=== PATIENT | female | born 2000 | race Caucasian/White ===

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

== ENCOUNTER → 2020-02-14 09:13 | Outpatient (CLI) | payer OTHER, SELFPAY ==
--- NOTE | 2020-02-14 09:21 | XR_ITS ---
PROCEDURE: XR WRIST RT MIN 3V CLINICAL INDICATION: INJURY TO R WRIST/INTIAL ENCOUNTER Pain COMPARISON: WRL2 WRIST-2 VIEWS-LT from 09/06/2007 WRR3 WRIST-3 VIEWS-RT from 09/06/2007 WRR2 WRIST-2 VIEWS-RT from 05/16/2013 WRL3 WRIST-3 VIEWS-LT from 05/16/2013 FINDINGS: No fracture, dislocation, lytic change, or blastic change evident. No significant degenerative change IMPRESSION: No acute findings. Dictated by: Ervin Zhang MD 02/14/2020 14:22 Electronically signed by Ervin Zhang MD in [facility] 02/14/2020 14:22
== END ==
PROVIDERS: PCP Nurse Practitioner Family; Visit Provider Nurse Practitioner Family
DX: S69.91XA Unspecified injury of right wrist, hand and finger(s), initial encounter (principal)
CPT/HCPCS: 73110

== ENCOUNTER 2022-04-16 20:08 | Emergency (ER) | payer OTHER, SELFPAY ==
[2022-04-16 20:09] VITALS: BP 136/94; PULSE 119; RESP 18; TEMP 36.9; O2SAT 99; BMI 44.2
[2022-04-16 20:45] VITALS: BP 136/94; PULSE 116; O2SAT 100
--- NOTE | 2022-04-16 20:55 | CT_ITS ---
PROCEDURE INFORMATION: Exam: CT Abdomen And Pelvis With Contrast Exam date and time: 04/16/2022 9:27 PM Age: 21 years old Clinical indication: Nausea and vomiting; Abdominal pain; Localized; Right upper quadrant (ruq); Additional info: R upper, lower abd pain, n/v/d for 2 days TECHNIQUE: Imaging protocol: Computed tomography of the abdomen and pelvis with contrast. Radiation optimization: All CT scans at this facility use at least one of these dose optimization techniques: automated exposure control; mA and/or kV adjustment per patient size (includes targeted exams where dose is matched to clinical indication); or iterative reconstruction. Contrast material: ISOVUE; Contrast volume: 75 ml; Contrast route: IV; COMPARISON: No relevant prior studies available. FINDINGS: Liver: Probable hepatic steatosis. Gallbladder and bile ducts: Normal. No calcified stones. No ductal dilation. Pancreas: Normal. No ductal dilation. Spleen: Normal. No splenomegaly. Adrenal glands: Normal. No mass. Kidneys and ureters: Normal. No hydronephrosis. Stomach and bowel: Unremarkable. No obstruction. No mucosal thickening. Appendix: Unremarkable appendix. Intraperitoneal space: Unremarkable. No free air. No significant fluid collection. Vasculature: Unremarkable. No abdominal aortic aneurysm. Lymph nodes: Unremarkable. No enlarged lymph nodes. Urinary bladder: Unremarkable as visualized. Reproductive: Unremarkable as visualized. Bones/joints: Unremarkable. No acute fracture. Soft tissues: Tiny fat containing umbilical hernia. IMPRESSION: No acute findings.
--- NOTE | 2022-04-16 21:01 | HMH.EDABDPAI ---
Discharge Plan Disposition Patient Disposition: Home, Self-Care Chief Complaint: Abdominal Pain Prescriptions Prescriptions: No Action No Known Home Medications Referrals Follow up/Referrals: Eligio Abernathy MD [Primary Care Provider] - See instructions Clinical Impressions Clinical Impression: Abdominal pain Instructions Patient Instructions: DI for Acute Abdominal Pain Discharge ED Provider: Obed Decker Abdominal Pain HPI General Chief Complaint: Abdominal Pain Stated Complaint: adm pain Time Seen by Provider: 04/16/22 21:01 Mode of Arrival: Family Vehicle Source of Information: Patient, Spouse and Medical Record Limitations: No Limitations Description of Symptoms (Recalled from ER Triage Doc. by RN): Pt c/o R upper and lower abd pain that radiates to R flank. She also c/o nausea and vomiting and soft stool. Denies fever, chills, or cough. Report the pain has been constant for 2 days but has worsened tonight. 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 No prior abd surgeries. History of Present Illness HPI narrative: rt upper abd pain with n/v over the last 2 days - worse today w/o fever/rash or trauma MD complaint: abdominal pain Onset (ago): day(s) Consistency: intermittent Location: RUQ Severity: moderate Quality: sharp Associated symptoms: denies other symptoms Related Data Home Medications Medication Instructions Recorded Confirmed No Known Home Medications 09/13/17 02/11/19 Allergies Allergy/AdvReac Type Severity Reaction Status Date / Time No Known Allergies Allergy Verified 09/13/17 14:55 [facility] Surgical History (Updated 04/16/22 @ 22:19 by Jennifer Feliz RN) History of atrioventricular dangelo ablation History of tonsillectomy and adenoidectomy [place] teeth extracted Social History Smoking Status: Current every day smoker alcohol intake: never 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 Travel in the last 8 weeks: None ROS Obtained: Yes All systems reviewed & no additional complaints except as documented Gastrointestinal Gastrointestingal: Reports as per HPI, abdominal pain and nausea Physical Exam General General appearance: alert and in no apparent distress Head Head exam: normocephalic Eye Eye exam: Present PERRL and EOMI ENT ENT exam: Present mucous membranes moist Neck Neck exam: Present trachea midline Respiratory Respiratory exam: Present normal lung sounds bilaterally; Absent respiratory distress Cardiovascular Cardiovascular exam: Present regular rate Abdominal Exam Abdominal exam: Present soft, tenderness and Heard's sign; Absent guarding or rebound Abdominal tenderness: Present RUQ and moderate Extremities Exam Extremities exam: Present full ROM Back Exam Back exam: Absent CVA tenderness (R) Neurological Exam Neurological exam: Present alert, oriented X3 and CN II-XII intact Psychiatric Psychiatric exam: Present normal affect Skin Skin exam: Absent rash Medical Decision Making Medical Records Medical records reviewed: Yes I reviewed the patient's medical records. Dylon Inquiry Pt receiving controlled substance: No Vital Signs: 04/16/22 20:09 Temperature 98.4 F Temperature Source Oral Pulse Rate [Right] 119 H Respiratory Rate 18 Blood Pressure [Right Arm] 136/94 H Blood Pressure Mean [Right Arm] 108 Blood Pressure Source [Right Arm] Automatic Cuff 02 Sat by Pulse Oximetry 99 Oxygen Delivery Method Room Air Lab Data Lab results reviewed: Yes I reviewed the patient's lab results. Lab Results 04/16/22 20:58: Urine Color Yellow, Urine Appearance Clear, Urine pH 7.5, Ur Specific [place] 1.015, Urine Protein Negative, Urine Glucose (UA) Negative, Urine Ketones Negative, Urine Blood Negative, Urine Nitrate Negative, Urine Bilirubin Negative, Urine Urobilinogen 0.2, Ur Leukocyte Esterase Negative, Urine RBC None, Urine WBC None, Ur Squamous Epith Cells Occasional, Urine Bacteria None 04/16/22 20:58: Urine HCG, Qual Nega
[2022-04-16 21:06] LABS: Microscopic, Urine URINE MICROSCOPIC (MICROSCOPIC)
[2022-04-16 21:14] LABS: Urine Pregnancy, HCG Qual. Negative (Negative)
[2022-04-16 21:17] LABS: Appearance,Urine CLEAR (Clear); Bilirubin,Urine Negative (Negative); Blood, Urine Negative (Negative); Color,Urine YELLOW (Yellow); Glucose,Urine (UA) Negative (Negative); Ketones,Urine Negative (Negative); Leukocyte Esterase,Urine Negative (Negative); Nitrate,Urine Negative (Negative); PH,Urine 7.5 (5.0-8.5); Protein,Urine Negative (Negative); Specific Gravity, Urine 1.015 (1.005-1.030); Urobilinogen,Urine 0.2 EU/dl (0.2)
[2022-04-16 21:28] LABS: Basophils # 0.1 K/mm3 (0-0.2); Basophils % 1.1 % (0.1-2.0); Eosinophils # 0.3 K/mm3 (0.0-0.4); Eosinophils % 2.7 % (0.1-12.0); Hematocrit 39.3 % (37.0-47.0); Hemoglobin 12.1 g/dL (12.2-16.2); Lymphocytes # 2.6 K/mm3 (0.7-4.5); Lymphocytes % 20.8 % (10-50); Mean Corpuscular HGB Conc 30.7 g/dL (31.8-35.4); Mean Corpuscular Volume 81.5 fl (81-99); Mean Platelet Volume 9.1 fl (7.4-10.4); Monocytes # 0.5 K/mm3 (0.1-1.0); Monocytes % 3.7 % (1.7-9.3); Neutrophils % 71.7 % (37.0-80.0); Platelet Count 376 K/mm3 (142-424); Red Blood Count 4.83 M/mm3 (4.20-5.40); Red Cell Distribution Width 15.5 % (11.5-17.5); White Blood Count 12.6 K/mm3 (4.8-10.8)
[2022-04-16 21:39] LABS: Alanine Aminotransferase 37 U/L (12-78); Albumin Level 4.2 g/dl (3.5-5.0); Albumin/Globulin Ratio 1.2 (1.1-1.8); Alkaline Phosphatase 88 U/L (38-126); Amylase 55 U/L (30-110); Aspartate Amino Transferase 30 U/L (14-36); Bilirubin,Total 0.3 mg/dl (0.2-1.3); Blood Urea Nitrogen 15 mg/dl (7-17); Calcium 8.6 mg/dl (8.4-10.2); Carbon Dioxide 27 mmol/L (22.0-30.0); Chloride 106 mmol/L (98-107); Creatinine Clearance Estimated 67 mL/min (50-200); Estimated Glomerular Filt Rate 57 ml/min (>60); GFR (African American) 69 ML/MIN (>60); Globulin 3.4 g/dL (1.3-3.2); Glucose 82 mg/dl (74-100); Lipase 37 U/L (23-300); Sodium 141 mmol/L (136-145); Total Protein,Serum 7.6 g/dl (6.3-8.2)
[2022-04-16 21:45] LABS: C-Reactive Protein 20.7 mg/L (0-4)
[2022-04-16 21:51] LABS: Squamous Epithelial Cell,Urine Occasional #/hpf (0-5)
[2022-04-16 21:57] LABS: Erythrocyte Sedimentation Rate 21 mm/hr (0-20)
[2022-04-16 21:59] LABS: Procalcitonin 0.085 ng/mL (0.0-2.0)
[2022-04-16 22:01] VITALS: BP 112/55; PULSE 94; O2SAT 99
[2022-04-16 22:30] VITALS: BP 138/72; PULSE 70; RESP 16; TEMP 36.6; O2SAT 99
== END 2022-04-16 22:32 | disposition home or self-care (01) ==
PROVIDERS: Emergency Provider Emergency Medicine; PCP Family Medicine
DX: R10.9 Unspecified abdominal pain (principal); R11.2 Nausea with vomiting, unspecified
CPT/HCPCS: 74177; 80053; 81001; 81025; 82150; 83690; 84145; 85025; 85651; 86140; 99284; Q9967

== ENCOUNTER → 2023-05-07 08:31 | Outpatient (CLI) | payer OTHER, SELFPAY ==
[2023-05-07 09:54] LABS: HCG,Quantitative 1020 mIU/ml (0-5.42)
== END ==
PROVIDERS: PCP Family Medicine; Visit Provider Nurse Practitioner Obstetrics & Gynecology
DX: N92.6 Irregular menstruation, unspecified (principal)
CPT/HCPCS: 36415; 84144; 84702

== ENCOUNTER 2023-05-16 19:36 | Emergency (ER) | payer OTHER, SELFPAY ==
[2023-05-16 19:37] VITALS: BP 144/73; PULSE 102; RESP 20; TEMP 36.8; O2SAT 99; BMI 45.9
--- NOTE | 2023-05-16 19:50 | US_ITS ---
PROCEDURE INFORMATION: Exam: US , Transvaginal and US Duplex Artery and Vein, Ovaries, Complete Exam date and time: 05/16/2023 8:06 PM Age: 22 years old Clinical indication: complicated by abdominal or pelvic pain; Lower; First trimester (<14 weeks 0 days); Gestational age or lmp: 5w6d; ; Additional info: + preg, left adnexal pain, location of preg? LABS AND CLINICAL REPORTS: Last menstrual period start date: 04/06/2023 Gestational age (Established): 5 w 5 d Estimated due date (Established): 01/11/2024 TECHNIQUE: Imaging protocol: Real-time transvaginal obstetrical ultrasound of the maternal pelvis and a first trimester with image documentation. Transvaginal imaging was used for better evaluation of the fetus, adnexa, and/or cervix. Real-time duplex ultrasound scan of the arterial and venous flow of the ovaries with B-mode, color Doppler flow and spectral waveform analysis, Complete Duplex. Duplex exam was performed to evaluate for torsion and other vascular conditions. Total images: 281 COMPARISON: CT ABDOMEN PELVIS W CON 04/16/2022 9:27 PM FINDINGS: GESTATION: Gestation: Single live intrauterine gestation. Yolk sac measures 4.1 mm. heart rate: 103 bpm Placenta: Unremarkable. No subchorionic bleed. Amniotic fluid: Amniotic fluid is normal for gestational age. BIOMETRY: Gestational age (AUA): 5 w 6 d Estimated due date (AUA): 01/10/2024 [place] length (CRL): 2.17 mm. EGA (CRL) is 5 w 5 d MATERNAL: Uterus: Anteverted nonenlarged uterus. Homogeneous myometrium. No uterine mass. Right ovary/adnexa: Right ovary measures 3.24 cm x 3.03 cm x 1.75 cm. Right ovarian volume is 9 mL. 1.9 cm hemorrhagic right ovarian corpus luteal cyst. Left ovary/adnexa: Left ovary measures 2.56 cm x 1.49 cm x 1.62 cm. Left ovarian volume is 3.24 mL. Intraperitoneal space: No free pelvic fluid. No adnexal mass. Vasculature: Normal color and spectral Doppler flow to both ovaries. IMPRESSION: 1. Single live intrauterine gestation of 5 weeks 6 days with heart rate 103 bpm. 2. No perigestational hemorrhage. 3. Normal bilateral ovaries. No torsion. 4. 1.9 cm hemorrhagic right ovarian corpus luteal cyst.
--- NOTE | 2023-05-16 19:53 | HMH.EDGENADL ---
Discharge Plan Disposition Patient Disposition: Home, Self-Care Prescriptions Prescriptions: New cephalexin 500 mg capsule 500 mg PO QID 5 Days Qty: 20 0RF No Action progesterone micronized [Prometrium] 100 mg capsule 100 mg PO DAILY 30 Days Qty: 30 3RF Rx Instructions: off 7 days; repeat cycle Referrals Follow up/Referrals: Eligio Abernathy MD [Primary Care Provider] - See instructions Activity Restrictions/Add. Instructions Additional Instructions/Restrictions: Follow-up with your primary care doctor or your [employer] doctor as previously instructed return to the emergency department with any worsening symptoms. Clinical Impressions Clinical Impression: Asymptomatic bacteriuria during , First trimester , Abdominal pain during Discharge ED Provider: Kvng Soto General Adult HPI General Chief complaint: PAIN Stated complaint: abd and back pain 6 wks Time Seen by Provider: 05/16/23 19:41 History of Present Illness HPI narrative: Patient is a 22-year-old female who is a G1, P0 at 6 weeks gestational age by dates. She presents today with lower abdominal discomfort as well as lower back discomfort. She denies any vaginal bleeding, loss of fluid she has had some mild vaginal discharge after starting progesterone which was initiated by Dr. Cordero. She had no vaginal discharge prior to being . She denies any dysuria frequency urgency. She has no significant abdominal pain to the rest of her abdomen. She is a smoker has no history of ectopic pelvic inflammatory disease gonorrhea or chlamydia. Related Data Previous Rx's Medication Instructions Recorded progesterone micronized 100 mg 100 mg PO DAILY 30 days #30 caps 05/11/23 capsule (Prometrium) cephalexin 500 mg capsule 500 mg PO QID 5 days #20 caps 05/16/23 Allergies Allergy/AdvReac Type Severity Reaction Status Date / Time fentanyl Allergy Verified 05/16/23 20:13 [facility] Disclaimer: The information contained in this section may have been updated after the patient was seen, as this information can be updated by other users. 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 Travel in the last 8 weeks: None ROS Obtained: Yes All systems reviewed & no additional complaints except as documented Physical Exam General General appearance: alert Respiratory Respiratory exam: Present normal lung sounds bilaterally; Absent respiratory distress Cardiovascular Cardiovascular exam: Present regular rate; Absent tachycardia Abdominal Exam Abdominal exam: Present soft; Absent distention or tenderness Neurological Exam Neurological exam: Present alert and oriented X3 Medical Decision Making Dylon Inquiry Pt receiving controlled substance: No Vital Signs: 05/16/23 19:37 Temperature 98.3 F Temperature Source Oral Pulse Rate [Right Radial] 102 H Respiratory Rate 20 Blood Pressure [Right Arm] 144/73 H Blood Pressure Mean [Right Arm] 96 Blood Pressure Source [Right Arm] Automatic Cuff Blood Pressure Position [Right Arm] Supine 02 Sat by Pulse Oximetry 99 Oxygen Delivery Method Room Air Lab Data Lab results reviewed: Yes I reviewed the patient's lab results. Lab Results 05/16/23 19:42: Urine Color Yellow, Urine Appearance Clear, Urine pH 7.0, Ur Specific [place] 1.015, Urine Protein Trace, Urine Glucose (UA) Negative, Urine Ketones Negative, Urine Blood Negative, Urine Nitrate Negative, Urine Bilirubin Negative, Urine Urobilinogen 0.2, Ur Leukocyte Esterase Negative, Urine RBC None, Urine WBC Occasional, Ur Squamous Epith Cells 5-10, Urine Bacteria Trace 05/16/23 20:00: WBC 12.3 H, RBC 4.63, Hgb 11.4 L, Hct
[2023-05-16 20:14] LABS: Basophils % 0.3 % (0.1-2.0); Eosinophils # 0.3 K/mm3 (0.0-0.4); Eosinophils % 2.2 % (0.1-12.0); Hematocrit 36.3 % (37.0-47.0); Hemoglobin 11.4 g/dL (12.2-16.2); Lymphocytes # 2.5 K/mm3 (0.7-4.5); Mean Corpuscular HGB Conc 31.4 g/dL (31.8-35.4); Mean Corpuscular Hemoglobin 24.6 pg (27.0-31.2); Mean Corpuscular Volume 78.4 fl (81-99); Mean Platelet Volume 9.1 fl (7.4-10.4); Monocytes # 0.4 K/mm3 (0.1-1.0); Monocytes % 3.1 % (1.7-9.3); Neutrophils # 9.1 K/mm3 (1.8-7.8); Neutrophils % 74.4 % (37.0-80.0); Platelet Count 327 K/mm3 (142-424); Red Blood Count 4.63 M/mm3 (4.20-5.40); Red Cell Distribution Width 15.7 % (11.5-17.5); White Blood Count 12.3 K/mm3 (4.8-10.8)
[2023-05-16 20:17] LABS: Chloride 106 mmol/L (98-107)
[2023-05-16 20:18] LABS: Sodium 137 mmol/L (136-145)
[2023-05-16 20:20] LABS: Alanine Aminotransferase 25 U/L (12-78); Aspartate Amino Transferase 21 U/L (14-36); Blood Urea Nitrogen 10 mg/dl (7-17); Creatinine Clearance Estimated 72 mL/min (50-200); Estimated Glomerular Filt Rate 62 ml/min (>60); GFR (African American) 75 ML/MIN (>60)
[2023-05-16 20:21] LABS: Albumin Level 3.7 g/dl (3.5-5.0); Albumin/Globulin Ratio 1.2 (1.1-1.8); Alkaline Phosphatase 55 U/L (38-126); Bilirubin,Total 0.4 mg/dl (0.2-1.3); Calcium 8.3 mg/dl (8.4-10.2); Carbon Dioxide 22 mmol/L (22.0-30.0); Globulin 3.2 g/dL (1.3-3.2); Glucose 110 mg/dl (74-100); Total Protein,Serum 6.9 g/dl (6.3-8.2)
[2023-05-16 20:39] LABS: Microscopic, Urine URINE MICROSCOPIC (MICROSCOPIC)
[2023-05-16 20:41] LABS: Appearance,Urine CLEAR (Clear); Bilirubin,Urine Negative (Negative); Blood, Urine Negative (Negative); Color,Urine YELLOW (Yellow); Glucose,Urine (UA) Negative (Negative); Ketones,Urine Negative (Negative); Leukocyte Esterase,Urine Negative (Negative); Nitrate,Urine Negative (Negative); Protein,Urine TRACE (Negative); Specific Gravity, Urine 1.015 (1.005-1.030); Urobilinogen,Urine 0.2 EU/dl (0.2)
[2023-05-16 20:43] LABS: Bacteria,Urine Trace /lpf; WBC,Urine Occasional #/hpf (0-3)
[2023-05-16 20:51] VITALS: BP 142/72; PULSE 98; RESP 20; TEMP 36.8; O2SAT 99
== END 2023-05-16 20:52 | disposition home or self-care (01) ==
PROVIDERS: Emergency Provider Student in an Organized Health Care Education/Training Program; PCP Family Medicine
DX: O26.891 Other specified pregnancy related conditions, first trimester (principal); R10.30 Lower abdominal pain, unspecified; M54.59 Other low back pain; O23.91 Unspecified genitourinary tract infection in pregnancy, first trimester; R82.71 Bacteriuria; Z3A.01 Less than 8 weeks gestation of pregnancy; O99.331 Smoking (tobacco) complicating pregnancy, first trimester; F17.210 Nicotine dependence, cigarettes, uncomplicated
CPT/HCPCS: 76817; 80053; 81001; 84702; 85025; 96361; 96374; 99284; J0131

== ENCOUNTER 2023-06-05 10:04 | Emergency (ER) | payer OTHER, SELFPAY ==
[2023-06-05 10:05] VITALS: BP 132/74; PULSE 81; RESP 18; TEMP 36.7; O2SAT 99; BMI 43.7
--- NOTE | 2023-06-05 10:18 | HMH.EDGENADL ---
Discharge Plan Disposition Patient Disposition: Home, Self-Care Prescriptions Prescriptions: New doxylamine succinate 25 mg tablet 12.5 mg PO Q6H PRN (Reason: vomiting) Qty: 12 0RF cefdinir 300 mg capsule 300 mg PO BID 7 Days Qty: 14 0RF No Action progesterone micronized [Prometrium] 100 mg capsule 100 mg PO DAILY 30 Days Qty: 30 3RF Rx Instructions: off 7 days; repeat cycle cephalexin 500 mg capsule 500 mg PO QID 5 Days Qty: 20 0RF Referrals Follow up/Referrals: Eligio Abernathy MD [Primary Care Provider] - See instructions Activity Restrictions/Add. Instructions Additional Instructions/Restrictions: At this time it was felt you are safe to be discharged home. If new or worsening symptoms please do not hesitate to return the emergency department. Please follow-up with your OB as discussed and take your medication as prescribed. Clinical Impressions Clinical Impression: Urinary tract infection during Instructions Patient Instructions: DI for Acute Pain -- Adult Discharge ED Provider: Edmond Farias General Adult HPI General Chief complaint: OB/Uterine Contractions Stated complaint: 8W&5D WOKE UP IN FLUID Time Seen by Provider: 06/05/23 10:06 Mode of Arrival: Ambulatory Source of Information: Patient Limitations: No Limitations Description of Symptoms (Recalled from ER Triage Doc. by RN): Patient reports being 8 weeks and woke up this morning to expressed fluid in her pants and on her bed. Patient denies any bleeding or spotting. States she spoke to her OB and was told to come to the ER for evaluation. History of Present Illness HPI narrative: Patient is a 22-year-old female currently 8 weeks who presents emergency department for evaluation of fluid in her sheets this morning. Patient awoke after lying on her abdomen all night with fluid on her sheets. Patient denies vaginal bleeding, passage of clots. She presents here for continued evaluation. No other acute complaints at this time. Related Data Previous Rx's Medication Instructions Recorded progesterone micronized 100 mg 100 mg PO DAILY 30 days #30 caps 05/11/23 capsule (Prometrium) cephalexin 500 mg capsule 500 mg PO QID 5 days #20 caps 05/16/23 cefdinir 300 mg capsule 300 mg PO BID 7 days #14 caps 06/05/23 doxylamine succinate 25 mg tablet 12.5 mg PO Q6H PRN vomiting #12 06/05/23 tabs Allergies Allergy/AdvReac Type Severity Reaction Status Date / Time fentanyl Allergy Verified 05/16/23 20:13 [facility] Disclaimer: The information contained in this section may have been updated after the patient was seen, as this information can be updated by other users. 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 Travel in the last 8 weeks: None ROS Obtained: Yes Systems reviewed as appropriate & no additional complaints except as documented Physical Exam General General appearance: alert and in no apparent distress Head Head exam: atraumatic and normocephalic Eye Eye exam: Present PERRL and EOMI ENT ENT exam: Present mucous membranes moist Neck Neck exam: Present normal inspection Chest Chest inspection: Present normal inspection and symmetric chest wall rise Respiratory Respiratory exam: Absent respiratory distress Cardiovascular Cardiovascular exam: Present regular rate and normal rhythm Abdominal Exam Abdominal exam: Present soft; Absent tenderness, guarding or rebound Extremities Exam Extremities exam: Present normal inspection Neurological Exam Neurological exam: Present alert Psychiatric Psychiatric exam: Present normal affect Skin Skin exam: Present warm and dry Medical Decision Making [place]
[2023-06-05 10:23] LABS: Microscopic, Urine URINE MICROSCOPIC (MICROSCOPIC)
[2023-06-05 10:24] LABS: Appearance,Urine CLEAR (Clear); Bilirubin,Urine Negative (Negative); Blood, Urine Negative (Negative); Color,Urine YELLOW (Yellow); Glucose,Urine (UA) Negative (Negative); Ketones,Urine Negative (Negative); Leukocyte Esterase,Urine 3+ (Negative); Nitrate,Urine Negative (Negative); Protein,Urine TRACE (Negative); Specific Gravity, Urine 1.015 (1.005-1.030)
[2023-06-05 10:31] VITALS: BP 110/68; PULSE 101; RESP 18; O2SAT 98
[2023-06-05 10:48] LABS: Bacteria,Urine 2+ /lpf; Squamous Epithelial Cell,Urine 20-50 #/hpf (0-5)
[2023-06-05 11:01] VITALS: BP 106/60; PULSE 66; RESP 18; O2SAT 100
[2023-06-05 11:15] VITALS: BP 106/60; PULSE 78; RESP 18; TEMP 36.7; O2SAT 98
== END 2023-06-05 11:15 | disposition home or self-care (01) ==
PROVIDERS: Emergency Provider Emergency Medicine; PCP Family Medicine
DX: O23.41 Unspecified infection of urinary tract in pregnancy, first trimester (principal); Z3A.08 8 weeks gestation of pregnancy
CPT/HCPCS: 81001; 87086; 99283

== ENCOUNTER → 2023-06-09 08:23 | Outpatient (CLI) | payer OTHER, SELFPAY ==
--- NOTE | 2023-06-09 08:24 | US_ITS ---
PROCEDURE: US OB <= 14 WEEKS FETUS CLINICAL INDICATION: for dates COMPARISON: No exams were available for comparison FINDINGS: Transvaginal sonographic images of the pelvis were obtained. From her last menstrual period she is 9weeks 1day. An intrauterine gestational sac is present with a pole with a crown-rump length of 2.41cm This correlates to a gestational age of 9weeks 1day. heart tones are present with an FHR of 163bpm. Yolk sac is noted. The yolk sac measures 6mm. The right ovary is seen and appears normal. It measures 3.1 cm x 2.9 cm x 1.6 cm. The left ovary is seen and appears normal. It measures 2.5 cm x 1.9 cm x 1.4 cm. There are multiple small peripheral follicles. There is no fluid in the cul-de-sac. IMPRESSION: 1. Viable fetus within the uterine cavity currently measuring 9 weeks 1 day. 2. The dates are congruent with her last menstrual period and the CONG will remain January 11, 2024. 3. Ovaries appear normal with the left ovary having a Polycystic appearance. Dictated by: Janak Gutierrez MD 06/09/2023 12:23 Janak Gutierrez MD in [place] 06/09/2023 12:23
== END ==
PROVIDERS: PCP Nurse Practitioner Obstetrics & Gynecology; Visit Provider Nurse Practitioner Obstetrics & Gynecology
DX: Z34.91 Encounter for supervision of normal pregnancy, unspecified, first trimester (principal); Z3A.09 9 weeks gestation of pregnancy
CPT/HCPCS: 76801; 87086

== ENCOUNTER → 2023-06-09 16:28 | Outpatient (CLI) | payer OTHER, SELFPAY | PROVIDERS: PCP Nurse Practitioner Obstetrics & Gynecology; Visit Provider Nurse Practitioner Obstetrics & Gynecology | DX: Z3A.09 9 weeks gestation of pregnancy (principal) ==

== ENCOUNTER → 2023-06-26 10:04 | Outpatient (CLI) | payer OTHER, SELFPAY ==
[2023-06-26 10:24] LABS: Basophils % 0.2 % (0.1-2.0); Eosinophils # 0.1 K/mm3 (0.0-0.4); Eosinophils % 1.1 % (0.1-12.0); Hematocrit 33.2 % (37.0-47.0); Hemoglobin 11.4 g/dL (12.2-16.2); Lymphocytes # 1.6 K/mm3 (0.7-4.5); Lymphocytes % 21.4 % (10-50); Mean Corpuscular HGB Conc 34.2 g/dL (31.8-35.4); Mean Corpuscular Hemoglobin 26.6 pg (27.0-31.2); Mean Corpuscular Volume 77.6 fl (81-99); Monocytes # 0.3 K/mm3 (0.1-1.0); Monocytes % 3.7 % (1.7-9.3); Neutrophils # 5.5 K/mm3 (1.8-7.8); Neutrophils % 73.6 % (37.0-80.0); Platelet Count 257 K/mm3 (142-424); Red Blood Count 4.27 M/mm3 (4.20-5.40); Red Cell Distribution Width 15.4 % (11.5-17.5); White Blood Count 7.4 K/mm3 (4.8-10.8)
[2023-06-27 08:46] LABS: Rubella Antibodies, IgG 2.61 index (Immune >0.99)
[2023-06-27 10:41] LABS: HIV Screen 4th Generation wRfx Non Reactive (Non Reactive)
[2023-06-27 12:48] LABS: Hepatitis B Surface Antigen Negative; Hepatitis C Antibody Non Reactive
[2023-06-27 12:49] LABS: Rapid Plasma Reagin Ab Titer Non Reactive
== END ==
PROVIDERS: PCP Family Medicine; Visit Provider Nurse Practitioner Obstetrics & Gynecology
DX: Z34.91 Encounter for supervision of normal pregnancy, unspecified, first trimester (principal); Z3A.12 12 weeks gestation of pregnancy
CPT/HCPCS: 36415; 85025; 86593; 86703; 86762; 86850; 87340; 87380; G0432

== ENCOUNTER → 2023-07-09 15:57 | Outpatient (CLI) | payer OTHER, SELFPAY ==
[2023-07-09 17:07] LABS: Free T4 (Free Thyroxine) 1.27 ng/dl (0.78-2.19)
[2023-07-09 17:09] LABS: Anion Gap 10.9 mEq/L (5-15); Blood Urea Nitrogen 8 mg/dl (7-17); Calcium 8.5 mg/dl (8.4-10.2); Carbon Dioxide 24 mmol/L (22.0-30.0); Chloride 102 mmol/L (98-107); Estimated Glomerular Filt Rate 78 ml/min (>60); GFR (African American) 95 ML/MIN (>60); Glucose 89 mg/dl (74-100); Potassium 3.9 mmoL/L (3.5-5.1); Sodium 133 mmol/L (136-145)
[2023-07-09 17:40] LABS: Thyroid Stimulating Hormone 0.37 uIU/mL (0.465-4.68)
== END ==
PROVIDERS: PCP Family Medicine; Visit Provider Internal Medicine
DX: R06.00 Dyspnea, unspecified (principal); R07.9 Chest pain, unspecified; R00.0 Tachycardia, unspecified; I45.6 Pre-excitation syndrome; L40.9 Psoriasis, unspecified; Z34.91 Encounter for supervision of normal pregnancy, unspecified, first trimester
CPT/HCPCS: 36415; 80048; 84439; 84443; 93270

== ENCOUNTER 2023-07-16 09:34 | Emergency (ER) | payer OTHER, SELFPAY ==
[2023-07-16 09:35] VITALS: BP 119/84; PULSE 109; RESP 20; TEMP 36.9; O2SAT 98; BMI 42.7
--- NOTE | 2023-07-16 09:52 | PC.NURSE ---
DR CROOK AT BEDSIDE
[2023-07-16 09:55] LABS: Basophils % 0.5 % (0.1-2.0); Eosinophils % 0.7 % (0.1-12.0); Hematocrit 33.4 % (37.0-47.0); Hemoglobin 11.3 g/dL (12.2-16.2); Lymphocytes # 1.7 K/mm3 (0.7-4.5); Lymphocytes % 32.3 % (10-50); Mean Corpuscular HGB Conc 33.8 g/dL (31.8-35.4); Mean Corpuscular Hemoglobin 26.6 pg (27.0-31.2); Mean Corpuscular Volume 78.8 fl (81-99); Mean Platelet Volume 9.8 fl (7.4-10.4); Monocytes # 0.2 K/mm3 (0.1-1.0); Monocytes % 3.5 % (1.7-9.3); Neutrophils # 3.2 K/mm3 (1.8-7.8); Neutrophils % 62.9 % (37.0-80.0); Platelet Count 194 K/mm3 (142-424); Red Blood Count 4.24 M/mm3 (4.20-5.40); Red Cell Distribution Width 16.4 % (11.5-17.5); White Blood Count 5.1 K/mm3 (4.8-10.8)
--- NOTE | 2023-07-16 09:55 | US_ITS ---
PROCEDURE INFORMATION: Exam: US First Trimester, Transabdominal and US , Transvaginal Exam date and time: 07/16/2023 10:04 AM Age: 22 years old Clinical indication: Lmp or gestational age (in weeks): 14 weeks 3 days; Other: Bleeding - cramping; ; Additional info: Cramping, pain, bleeding, 14 wks TECHNIQUE: Imaging protocol: Real-time transabdominal obstetrical ultrasound of the maternal pelvis and a first trimester , less than 14 weeks 0 days, with image documentation. Transvaginal imaging was used for better evaluation of the fetus, adnexa, and/or cervix. Total images: 48 COMPARISON: US OB <= 14 WEEKS FETUS 06/09/2023 8:28 AM FINDINGS: Gestation: Single living intrauterine gestation. presentation: Breech presentation. Embryonic/ heart rate: 153 bpm Extra-embryonic membranes/Placenta: Anterior placenta grade 1. Amniotic fluid: Amniotic fluid and extra-amniotic fluid is normal for gestational age. BIOMETRY: Gestational age (AUA): 15 w 0 d Estimated due date (AUA): 01/07/2024. Estimated date of delivery (AUA) 01/07/2024. Estimated weight: Estimated weight 105 g. Estimated weight percentile: Estimated weight percentile (AUA) 22%. Biparietal diameter (BPD): BPD 2.8 cm, 15 weeks 1 day Head circumference (HC): HC 10.4 cm, 15 weeks 0 days Abdominal circumference (AC): AC 8.8 cm, 15 weeks 1 day Femur length (FL): FL 1.5 cm, 14 weeks 3 days MATERNAL: Uterus: Unremarkable. Cervix: Unremarkable. Right ovary/adnexa: Unremarkable ovary. Left ovary/adnexa: Unremarkable ovary. Intraperitoneal space: No intraperitoneal free fluid. IMPRESSION: 1. Single living intrauterine gestation. 2. Average gestational age (AUA) 15 weeks 0 days. 3. heart rate recorded to be 153 bpm.
--- NOTE | 2023-07-16 09:57 | HMH.EDGENADL ---
Discharge Plan Disposition Patient Disposition: Home, Self-Care Condition: Good Prescriptions Prescriptions: No Action Classic 28 mg iron- 800 mcg tablet 1 tab PO DAILY Referrals Follow up/Referrals: Eligio Abernathy MD [Primary Care Provider] - See instructions Activity Restrictions/Add. Instructions Additional Instructions/Restrictions: You were evaluated in the emergency department today. At this time, your ultrasound and labs are reassuring. You do have bacteria in your urine, for which we are providing you with a prescription for Macrobid. Please pick up man the prescription and complete the full course as prescribed. Make sure that you stay hydrated. Take Tylenol at home as needed for pain and cramping. Call your CRUSHING MACHINE OPERATOR now and let them know that you were seen here today. Return to the emergency department for new or worsening symptoms. Clinical Impressions Clinical Impression: Bacteriuria during , Pelvic pain affecting , Vaginal bleeding during Stand Alone Forms Stand Alone Forms: Work/School Release Instructions Patient Instructions: DI for -- Discomforts and Remedies, DI for Vaginal Bleeding During Discharge ED Provider: Lena Batista General Adult HPI General Chief complaint: Vaginal Bleeding Stated complaint: bleeding stomach pain, 14 weeks preg Time Seen by Provider: 07/16/23 09:36 Mode of Arrival: Family Vehicle Source of Information: Patient Limitations: No Limitations Description of Symptoms (Recalled from ER Triage Doc. by RN): Pt c/o bright red vaginal bleeding that began suddenly this morning. She does note some low back and ovary cramping. Denies any clots. Reports the vaginal bleeding is light and does not fill a pad. She is mostly concerned of the pain. She is . Denies fever or urinary symptoms. 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 She does report dizziness. History of Present Illness HPI narrative: This patient is a 22-year-old G1, P0 at estimated 14 weeks and 4 days gestational age presenting to the emergency department for evaluation with concern for lower pelvic cramping/pain as well as vaginal bleeding in the setting of . Patient states that the pain started yesterday, and the bleeding started this morning. She states that it feels like there is a heavy ball in her uterus. She also has intermittent sharp pains. She describes it as constant and not coming and going and rhythmic contractions. She notes that the bleeding is light spotting, not as heavy as a regular period. Of note, she has a history of Nffry-Qbvbwqxra-Niujw syndrome, for which she is currently wearing a regional otr company driver. She notes her has been uncomplicated thus far. I reviewed medical records including her last OB and cardiology notes as well as her most recent ED note which was concerning for urinary tract infection during back in May. She denies any fevers, chills, dysuria, foul-smelling vaginal discharge, large gushes of fluid, or other concerns. On medical record review, her blood type is a positive. Related Data Home Medications Medication Instructions Recorded Confirmed vits no.[id number]-ferrous fum 1 tab PO DAILY 07/06/23 07/16/23 28 mg iron-folic acid 800 mcg tablet (Classic ) Allergies Allergy/AdvReac Type Severity Reaction Status Date / Time fentanyl AdvReac Severe Acute Verified 07/16/23 10:40 Psychosis/Aggression [facility] Disclaimer: The information contained in this section may have been updated after the patient was seen, as this information can be updated by other users. Medical History Anemia Atypical chest pain History of arthritis History of hypertension Psoriasis Type A WPW syndrome Surgical History (Reviewed 07/16/23 @ 09:59 by Lena Batista
[2023-07-16 10:00] LABS: Chloride 103 mmol/L (98-107); Potassium 3.6 mmoL/L (3.5-5.1); Sodium 135 mmol/L (136-145)
[2023-07-16 10:02] LABS: Alanine Aminotransferase 37 U/L (12-78); Aspartate Amino Transferase 35 U/L (14-36); Blood Urea Nitrogen 7 mg/dl (7-17); Creatinine Clearance Estimated 92 mL/min (50-200); Estimated Glomerular Filt Rate 78 ml/min (>60); GFR (African American) 95 ML/MIN (>60)
[2023-07-16 10:03] LABS: Albumin Level 4.1 g/dl (3.5-5.0); Albumin/Globulin Ratio 1.3 (1.1-1.8); Alkaline Phosphatase 73 U/L (38-126); Anion Gap 10.6 mEq/L (5-15); Bilirubin,Total 0.9 mg/dl (0.2-1.3); Calcium 8.3 mg/dl (8.4-10.2); Carbon Dioxide 25 mmol/L (22.0-30.0); Globulin 3.2 g/dL (1.3-3.2); Glucose 96 mg/dl (74-100); Total Protein,Serum 7.3 g/dl (6.3-8.2)
[2023-07-16 10:05] VITALS: BP 130/72; PULSE 102; O2SAT 98
--- NOTE | 2023-07-16 10:05 | PC.NURSE ---
PT TO US
[2023-07-16 10:07] LABS: Microscopic, Urine URINE MICROSCOPIC (MICROSCOPIC)
[2023-07-16 10:21] LABS: Appearance,Urine CLEAR (Clear); Blood, Urine Negative (Negative); Color,Urine YELLOW (Yellow); Glucose,Urine (UA) Negative (Negative); Ketones,Urine 2+ (Negative); Leukocyte Esterase,Urine TRACE (Negative); Nitrate,Urine Negative (Negative); PH,Urine 6.5 (5.0-8.5); Protein,Urine TRACE (Negative); Urobilinogen,Urine 0.2 EU/dl (0.2)
[2023-07-16 10:37] LABS: Bilirubin,Urine Negative (Negative)
[2023-07-16 10:39] LABS: Bacteria,Urine Trace /lpf; WBC,Urine Occasional #/hpf (0-3)
--- NOTE | 2023-07-16 11:10 | PC.NURSE ---
pt back to room via wheelchair
--- NOTE | 2023-07-16 11:14 | PC.NURSE ---
back from US
[2023-07-16 11:18] VITALS: BP 130/70; PULSE 94; O2SAT 100
[2023-07-16 11:31] VITALS: BP 123/65; PULSE 97; O2SAT 98
[2023-07-16 12:04] VITALS: BP 117/66; PULSE 90; RESP 17; TEMP 36.9; O2SAT 98
--- NOTE | 2023-07-16 12:07 | PC.NURSE ---
DR CROOK AT BEDSIDE TO UPDATE PT
== END 2023-07-16 12:12 | disposition home or self-care (01) ==
PROVIDERS: Emergency Provider Emergency Medicine; PCP Family Medicine
DX: O26.851 Spotting complicating pregnancy, first trimester (principal); O26.892 Other specified pregnancy related conditions, second trimester; O23.92 Unspecified genitourinary tract infection in pregnancy, second trimester; O99.412 Diseases of the circulatory system complicating pregnancy, second trimester; R10.2 Pelvic and perineal pain; I45.6 Pre-excitation syndrome; Z3A.14 14 weeks gestation of pregnancy
CPT/HCPCS: 76817; 80053; 81001; 85025; 87086; 99285

== ENCOUNTER → 2023-07-20 13:37 | Outpatient (CLI) | payer OTHER, SELFPAY ==
--- NOTE | 2023-07-20 13:38 | CA_ITS ---
APPROVED REPORT EXAM: Comprehensive 2D, Doppler, and color-flow Echocardiogram Warehouse Unloader: Ewa Dunbar RDCS Ht: 5 ft 6 in Wt: 266lbs BSA: 2.26 BP: 136/93 mmHg Indications: WPW?,CP,PALPS,EDEMA,EDEMA,SOA 2D Dimensions Left Atrium 2.65 cm F: 2.7 - 3.8 EF AP4 52.10 % LVOT 2.03 cm (M/F) 1.5-2.5 GL Strain -19.1 % M-Mode Dimensions RVDd 2.27 cm (0.9-2.6) LVDd 5.26 cm (3.5-5.7) Ao Diam 2.69 cm (2.0-3.7) LVDs 3.35 cm (3.5-5.7) IVSd 0.72 cm (0.6-1.1) PWd 1.00 cm (0.6-1.1) EF (Teich) 65.60% FS 36.30% EDV (Teich) 133.00 mL ESV (Teich) 45.80 mL LV Diastology E Decel Time 169 (160-240 msec) E/A Ratio 3.3 MED E' 9.1 (>= 7 cm/sec) E'/MED E' Ratio 8.48 (<= 14) LAT E' 11.8 (>= 10 cm/sec) E/LAT E' Ratio 6.54 (<= 14) Mitral Valve MV E [place]. 77.0 (40-130 cm/s) MV A Velocity 23.0 (40-130 cm/s) E/A Ratio 3.31 MV Decel. Time 169 (160-240 ms) Left Ventricle The left ventricle is normal size. The left ventricular systolic function is normal. The left ventricular ejection fraction is within the normal range. There is normal left ventricular wall thickness. There is normal LV segmental wall motion. The left ventricular diastolic function is normal. LVEF is 60%. Right Ventricle The right ventricle is normal size. The right ventricular systolic function is normal. Atria The left atrium size is normal. The right atrium size is normal. There is no Doppler evidence of interatrial shunt. Aortic Valve The aortic valve is normal in structure. The aortic valve is trileaflet. There is no aortic valvular stenosis. No aortic regurgitation is present. Mitral Valve The mitral valve is normal in structure. No evidence of mitral valve stenosis. Trace mitral valve regurgitation noted. Tricuspid Valve The tricuspid valve leaflets are thin and pliable. There is insufficient TR jet to estimate RVSP. Pulmonic Valve The pulmonary valve is normal in structure. Trace pulmonic regurgitation. Great Vessels The aortic root is normal in size. The ascending aorta is normal in size. IVC is normal in size and collapses >50% with inspiration. Pericardium There is no pericardial effusion. Other Information Study Quality: Adequate Conclusion Normal biventricular systolic function. No significant valvular stenosis or regurgitation. Electronically signed by : Kassie Dong MD 07/22/2023 00:03:52
--- NOTE | 2023-07-20 13:38 | CA_ITS ---
APPROVED REPORT Exam: Exercise Treadmill Technologist: Malia Gonzales, Ht: 5 ft 6 in Wt: 266 lbs BSA: 2.26 m2 HR: 109 bpm BP: 111/72 mmHg Rhythm: NSR Medical History Medications: vitamin,,,,, DOxyLAMINE succinate,,,,, Stress Test Details Test: Geovanny HR Resting HR: 136 bpm Max Heart Rate (APMHR): 198 bpm Max HR Achieved: 180 bpm Target HR (85% APMHR): 168 bpm % of APMHR: 91 Recovery HR: 114 bpm HR response to stress: Normal HR response to stress BP Resting BP: 109.0/76 mmHg Max BP: 187/6 mmHg Recovery BP: 128.0/76.0 mmHg BP response to stress: Normal blood pressure response to stress. ECG Resting ECG: Sinus tachycardia Stress ECG: < 0.[address] depression Arrhythmia: None Recovery ECG: Return to baseline within 3 minutes of recovery Recovery Arrhythmia: None Clinical Exercise duration: 03:29 min Highest Stage Achieved: II Exercise capacity: 4.6 METs Overall Exercise Capacity for Age: Poor Stress ECG Conclusion The patient was able to exercise for a total of 3 minutes, 29 seconds. She achieved a total of 4.6 METS. She has poor exercise capacity compared to age and sex matched peers. She has normal HR and BP response to exercise. Max HR: 180 % of PM: 106 Max BP: 158/85 METs: 4.6 Test stopped due to: CP, SOA Symptoms: (+) CP/SOA Arrhythmias/Ectopy: None ST-T Changes: < 0.[address] depression Conclusion: Poor exercise tolerance. ECG at baseline demonstrates sinus tachycardia. No ST changes at peak stress. GXT only (no myoview). Test Summary REST . . . . . . . Sitting REST . . . . . . . Standing REST 04:51 0.0 1.2 136 . 109/ 76 . . Stage 1 01:00 10.0 1.7 155 . . . . Stage 1 02:00 10.0 1.7 167 . . . . Stage 1 03:00 10.0 1.7 169 . 140/ 72 . . Stage 2 00:29 12.0 2.5 176 . . . Stop exercise at 03:29 RECOVERY 01:00 0.0 0.0 158 . . . . RECOVERY 02:00 0.0 0.0 127 . . . . RECOVERY 03:00 0.0 0.0 124 . 158/ 85 . . RECOVERY 04:00 0.0 0.0 120 . 128/ 76 . . RECOVERY 04:09 0.0 0.0 115 . 128/ 76 . . Electronically signed by : Kassie Dong MD 08/09/2023 22:56:00
== END ==
PROVIDERS: PCP Family Medicine; Visit Provider Internal Medicine
DX: R06.00 Dyspnea, unspecified (principal); R07.9 Chest pain, unspecified; I45.6 Pre-excitation syndrome; R00.0 Tachycardia, unspecified; L40.9 Psoriasis, unspecified; Z34.92 Encounter for supervision of normal pregnancy, unspecified, second trimester; Z3A.15 15 weeks gestation of pregnancy
CPT/HCPCS: 93017; 93018; 93306

== ENCOUNTER 2023-08-26 13:18 | Outpatient (CLI) | payer OTHER, SELFPAY ==
--- NOTE | 2023-08-26 13:18 | US_ITS ---
PROCEDURE: US OB /MATERNAL DETAIL CLINICAL INDICATION: 20 week anatomy scan COMPARISON: No exams were available for comparison FINDINGS: Transabdominal sonographic images of the pelvis were obtained. From her established due date she is 20 weeks 2 days. Single viable intrauterine gestation. Breech position. Placenta: Anteriorplacenta grade 1. There is an average amount of fluid. MVP 3.72 cm The cervix appears satisfactory. Closed and measuring 4.1 cm in length. Complete survey performed and was unremarkable on the submitted images as in PACS. No discrete anomalies identified on survey imaging by technologist. Active fetus. Three-vessel cord with satisfactory umbilical cord insertion. 4- chamber heart noted. Situs, aortic arch, LVOT, RVOT, appear normal. Survey of brain & ventricles Unremarkable. Cerebellum, thalamus, choroid plexus, cisterna magna appear normal. Face and neck survey unremarkable. lips and nose appeared normal. Profile and nasion were not seen due to position today. Diaphragm and chest views unremarkable. Abdomen: Both kidneys noted and unremarkable. Stomach and bladder noted and satisfactory. Spine: Survey of the spine satisfactory with no anomalies identified nor imaged. Cervical, thoracic, lower spine appear normal. Both arms and legs noted. Amniotic Fluid: Adequate. Measurements: Average ultrasound age 20weeks 4days. Estimated due date by ultrasound age 0601/09/2024. Estimated weight 358g BPD = 20weeks 5days OFD = 20weeks 3days HC = 20weeks 0 days AC = 20weeks 6days FL = 20weeks 3days Growth Percentile= 57 Heart Rate = 150bpm Cerebellum = 20weeks 1day Humerus = 20weeks 4days HC/AC is 1.12 CI is 0.81 FL/BPD is 0.68 FL/AC is 0.21 IMPRESSION: 1. Viable fetus in the breech presentation with an anterior placenta grade 1. 2. The fluid is within normal limits. 3. Anatomical scan appears normal. profile and nasion were not seen due to position. Would suggest a repeat ultrasound in 2-4 weeks to complete the anatomical scan. 4. biometry is consistent with a dates. Dictated by: Janak Gutierrez MD 08/26/2023 16:51 Janak Gutierrez MD in [place] 08/26/2023 16:51
== END 2023-08-26 23:59 ==
LOC: RAD 13:18
PROVIDERS: PCP Family Medicine; Visit Provider Nurse Practitioner Obstetrics & Gynecology
DX: Z34.92 Encounter for supervision of normal pregnancy, unspecified, second trimester (principal); Z3A.20 20 weeks gestation of pregnancy
CPT/HCPCS: 76811

== ENCOUNTER 2023-09-22 14:20 | Outpatient (CLI) | payer OTHER, SELFPAY ==
--- NOTE | 2023-09-22 14:24 | US_ITS ---
PROCEDURE: US OB FOLLOW UP CLINICAL INDICATION: BETTER PROFILE VIEW COMPARISON: US US OB /MATERNAL DETAIL from 08/26/2023 FINDINGS: Transabdominal sonographic images of the pelvis were obtained. The following parameters are obtained: From her established due date she is 24weeks 1day Viable fetus in the cephalic presentation with an anterior placenta grade 1. The cervix measures 3.9 cm. heart rate: 143bpm bpm. No obvious anomalies evident. profile and nasion seen, three-vessel cord, four chamber heart appear normal. IMPRESSION: 1. Viable fetus in the cephalic presentation with an anterior placenta grade 1. 2. The fluid is within normal limits. 3. Limited anatomical scan appears normal. The profile is seen along with a nasion and appears normal. Dictated by: Janak Gutierrez MD 09/22/2023 16:02 Janak Gutierrez MD in [place] 09/22/2023 16:02
== END 2023-09-22 23:59 ==
LOC: RAD 14:20
PROVIDERS: PCP Family Medicine; Visit Provider Nurse Practitioner Obstetrics & Gynecology
DX: O26.892 Other specified pregnancy related conditions, second trimester (principal); Z3A.23 23 weeks gestation of pregnancy
CPT/HCPCS: 76816

== ENCOUNTER 2023-10-04 15:04 | Outpatient (CLI) | payer OTHER, SELFPAY ==
[2023-10-04 15:09] VITALS: BP 130/73; PULSE 98; RESP 18; TEMP 36.8; O2SAT 97; BMI 43.0; BMI 44.4
[2023-10-04 15:25] LABS: Microscopic, Urine URINE MICROSCOPIC (MICROSCOPIC)
[2023-10-04 15:29] LABS: Appearance,Urine CLEAR (Clear); Bilirubin,Urine Negative (Negative); Blood, Urine Negative (Negative); Color,Urine YELLOW (Yellow); Glucose,Urine (UA) Negative (Negative); Ketones,Urine Negative (Negative); Leukocyte Esterase,Urine 2+ (Negative); Nitrate,Urine Negative (Negative); Protein,Urine TRACE (Negative); Specific Gravity, Urine 1.015 (1.005-1.030); Urobilinogen,Urine 0.2 EU/dl (0.2)
[2023-10-04 15:42] LABS: Benzodiazepines Screen,Urine Negative ng/ml (<200)
[2023-10-04 15:43] LABS: Amphetamine/Metha Screen,Urine Negative ng/ml (<1000)
[2023-10-04 15:44] LABS: Barbiturates Screen,Urine Negative ng/ml (<200); Methadone Screen,Urine Negative ng/ml (<300)
[2023-10-04 15:46] LABS: Bacteria,Urine 1+ /lpf; Cocaine Screen,Urine Negative ng/ml (<300); Opiate Screen,Urine Negative ng/ml (<300); RBC,Urine Occasional #/hpf (0-3); Squamous Epithelial Cell,Urine Occasional #/hpf (0-5)
[2023-10-04 15:47] LABS: Phencyclidine Screen,Urine Negative ng/ml (<25)
[2023-10-04 15:52] LABS: Cannabinoid Screen,Urine Negative ng/ml (<50)
[2023-10-04] MEDS: NITROFURANTOIN 100MG CAPSULE 100 MG PO (16:07)
== END 2023-10-04 16:17 | disposition home or self-care (01) ==
LOC: OBOUT 15:06 → OB 15:07
PROVIDERS: PCP Family Medicine; Visit Provider Obstetrics & Gynecology
DX: O23.42 Unspecified infection of urinary tract in pregnancy, second trimester (principal); Z3A.25 25 weeks gestation of pregnancy; B96.89 Other specified bacterial agents as the cause of diseases classified elsewhere
CPT/HCPCS: 59025; 80307; 81001; 87086

== ENCOUNTER 2023-10-16 08:10 | Outpatient (CLI) | payer OTHER, SELFPAY ==
[2023-10-16 08:31] LABS: Basophils % 0.5 % (0.1-2.0); Eosinophils # 0.1 K/mm3 (0.0-0.4); Eosinophils % 1.6 % (0.1-12.0); Hematocrit 29.9 % (37.0-47.0); Hemoglobin 9.5 g/dL (12.2-16.2); Lymphocytes # 2.4 K/mm3 (0.7-4.5); Lymphocytes % 30.5 % (10-50); Mean Corpuscular HGB Conc 31.9 g/dL (31.8-35.4); Mean Corpuscular Hemoglobin 27.3 pg (27.0-31.2); Mean Corpuscular Volume 85.7 fl (81-99); Mean Platelet Volume 9.2 fl (7.4-10.4); Monocytes # 0.3 K/mm3 (0.1-1.0); Monocytes % 3.9 % (1.7-9.3); Neutrophils % 63.4 % (37.0-80.0); Platelet Count 254 K/mm3 (142-424); Red Blood Count 3.49 M/mm3 (4.20-5.40); Red Cell Distribution Width 16.4 % (11.5-17.5)
[2023-10-16 09:21] LABS: Glucose,Fasting 84 mg/dl (74-100)
[2023-10-16 09:44] LABS: Thyroid Stimulating Hormone 2.11 uIU/mL (0.465-4.68)
[2023-10-16 10:08] LABS: Glucose 1 Hour 110 mg/dL (74-100)
[2023-10-17 14:05] LABS: Miscellaneous Test SCANNED IMAGE
== END 2023-10-16 23:59 ==
LOC: LAB 08:10
PROVIDERS: PCP Family Medicine; Visit Provider Nurse Practitioner Obstetrics & Gynecology
DX: O26.893 Other specified pregnancy related conditions, third trimester (principal); E03.8 Other specified hypothyroidism; Z3A.27 27 weeks gestation of pregnancy
CPT/HCPCS: 36415; 82951; 84443; 85025

== ENCOUNTER 2024-01-19 16:05 | Outpatient (CLI) | payer SELFPAY ==
[2024-01-19 16:16] LABS: COC Drug Screen Collection Only
== END 2024-01-19 23:59 | disposition home or self-care (01) ==
PROVIDERS: PCP Internal Medicine Adolescent Medicine
DX: Z01.89 Encounter for other specified special examinations (principal)

== ENCOUNTER 2024-04-08 16:27 | Emergency (ER) | payer OTHER, SELFPAY ==
[2024-04-08 17:05] VITALS: BP 136/87; PULSE 91; RESP 20; TEMP 36.7; O2SAT 99; BMI 42.3
--- NOTE | 2024-04-08 17:14 | EXP.UTC ---
Discharge Plan Disposition Patient Disposition: Home, Self-Care Condition: Good Prescriptions Prescriptions: New pseudoephedrine HCl [Sudafed 12 Hour] 120 mg tablet extended release 120 mg PO Q12H PRN (Reason: nasal congestion) Qty: 20 0RF azithromycin [Zithromax Z-Jamarcus] 250 mg tablet See Rx Instructions .ROUTE .COMPLEX 5 Days Qty: 6 0RF Rx Instructions: For 250 mg dose pack: take 500 mg today (day 1), then 250 mg for 4 days (days 2-5) Referrals Follow up/Referrals: Micah Izaguirre MD [Primary Care Provider] - See instructions Activity Restrictions/Add. Instructions Additional Instructions/Restrictions: *Monitor Temp, Over the counter Motrin or Tylenol as directed/as needed Tylenol every 4 hours and Motrin every 6 hours (as long as your family doctor has told you that you can take it) for fever or pain. and straight to ER if unable to lower temp less than 101.0 after medication given *Warm salt water gargles may help to soothe the throat *Throat Lozenges? *Warm fluids like tea with honey may help to soothe the throat? *Sleep elevated *Humidifier/Vaporizer *Flonase 2 sprays in each nostril daily but be aware that it may take 2-3 days before you notice improvement *Bromfed may cause drowsiness. Know how it effects you (your child) before driving, caring for small child, or sending your child to school. Not other antihistamines/allergy medications while taking bromfed Your throat swab was sent for culture. Those results are typically sent to your primary care. Be sure to follow up in 2-3 days with your family doctor/primary care physician if no improvement so they can review those result and treat if necessary. If you don?t have a primary care doctor, I recommend you get one but in the mean time, you will have to return to a walk in clinic Follow up IMMEDIATELY for new or worsening symptoms or no Noticeable improvement over the next 48-72 hours. 911 for difficulty breathing or swallowing You were tested for today for Upper Respiratory Panel with COVID19 your test result should be back in the next 24 hours, you may check your [facility] My Health Portal for your results they will post there for you to review your results Clinical Impressions Clinical Impression: Sinusitis Stand Alone Forms Stand Alone Forms: Work/School Release Instructions Patient Instructions: Sinusitis, DI for Sinusitis Print Language Print Language: Macedonian Discharge ED Provider: Tatyana Lemus [facility] HPI General Stated complaint: sore throat,runny nose,cogestion Time Seen by Provider: 04/08/24 17:14 History of Present Illness Provider Complaint: Patient states that she started feeling bad earlier in the week States that she has been having sore throat, sinus pain and pressure, cough and over all not feeling well States today she was feeling worse and having pressure behind her eyes so she came in worried she may have a sinus infection or something States she does have a 4mth old at home Related Data Previous Rx's ?Medication ?Instructions ?Recorded azithromycin 250 mg tablet See Rx Instructions PO .COMPLEX 5 04/08/24 (Zithromax Z-Jamarcus) days #6 tabs pseudoephedrine HCl 120 mg 120 mg PO Q12H PRN nasal 04/08/24 tablet,extended release (Sudafed congestion #20 tabs 12 Hour) Allergies Allergy/AdvReac Type Severity Reaction Status Date / Time fentanyl AdvReac Severe Acute Verified 12/08/23 08:58 Psychosis/Aggression [facility] Disclaimer: The information contained in this section may have been updated after the patient was seen, as this information can be updated by other users. Medical History Genital HSV HSV-1 and HSV-2 History of arthritis Anemia Psoriasis History of hypertension Type A WPW syndrome Atypical chest pain Surgical History [place] teeth extracted
[2024-04-08 17:26] LABS: UTC Strep Screen (Rapid) Negative (Negative)
[2024-04-08 17:37] VITALS: BP 136/87; PULSE 91; RESP 20; TEMP 36.7; O2SAT 99
[2024-04-08 17:52] LABS: Adenovirus,PCR Not Detected (NotDetected); Bordetella Pertussis Not Detected (NotDetected); Chlamydophila Pneumoniae, PCR Not Detected (NotDetected); Coronavirus 229E Not Detected (NotDetected); Coronavirus NL63 Not Detected (NotDetected); Coronavirus OC43 Not Detected (NotDetected); Coronovirus HKU1,PCR Not Detected (NotDetected); Human Metapneumovirus Not Detected (NotDetected); Influenza A, PCR Not Detected (NotDetected); Influenza AH1, 2009 Not Detected (NotDetected); Influenza AH1, PCR Not Detected (NotDetected); Influenza AH3,PCR Not Detected (NotDetected); Influenza B, PCR Not Detected (NotDetected); Mycoplasma Pneumoniae, PCR Not Detected (NotDetected); Parainfluenza 1, PCR Not Detected (NotDetected); Parainfluenza 2, PCR Not Detected (NotDetected); Parainfluenza 3, PCR Not Detected (NotDetected); Parainfluenza 4, PCR Not Detected (NotDetected); Respiratory Syncytial Virus Not Detected (NotDetected); Rhinovirus/Enterovirus Not Detected (NotDetected)
[2024-04-08 20:57] LABS: Coronavirus 19, PCR Detected (NotDetected)
== END 2024-04-08 17:40 | disposition home or self-care (01) ==
PROVIDERS: Emergency Provider Nurse Practitioner; PCP Family Medicine
DX: U07.1 COVID-19 (principal); J01.90 Acute sinusitis, unspecified; R05.9 Cough, unspecified
CPT/HCPCS: 87265; 87486; 87581; 87632; 87635; 87880; 99204; 99212; G0463

== ENCOUNTER 2024-06-06 18:26 | Observation (INO) | payer OTHER, SELFPAY ==
[2024-06-06 18:27] VITALS: BP 138/88; PULSE 85; RESP 16; TEMP 36.8; O2SAT 100; BMI 42.4
[2024-06-06] MEDS: MORPHINE 4MG/ML SYRINGE 4 MG IV (18:44)
[2024-06-06] MEDS: LACTATED RINGERS 1000ML 1,000 ML 999 ML IV (18:44)
[2024-06-06] MEDS: ONDANSETRON 4MG/2ML VIAL 4 MG IV (18:44)
--- NOTE | 2024-06-06 18:46 | HMH.EDGENADL ---
Discharge Plan Disposition Patient Disposition: Admitted Chief Complaint: Abdominal Pain Prescriptions Prescriptions: No Action pseudoephedrine HCl [Sudafed 12 Hour] 120 mg tablet extended release 120 mg PO Q12H PRN (Reason: nasal congestion) Qty: 20 0RF azithromycin [Zithromax Z-Jamarcus] 250 mg tablet See Rx Instructions .ROUTE .COMPLEX 5 Days Qty: 6 0RF Rx Instructions: For 250 mg dose pack: take 500 mg today (day 1), then 250 mg for 4 days (days 2-5) Referrals Follow up/Referrals: Jefe Schwartz MD [Primary Care Provider] - See instructions Clinical Impressions Clinical Impression: Cholelithiasis, Biliary colic Instructions Patient Instructions: DI for Acute Abdominal Pain Print Language Print Language: Arabic Discharge ED Provider: Kvng Soto General Adult HPI General Chief complaint: Abdominal Pain Stated complaint: upper right quadrant pain, back pain Time Seen by Provider: 06/06/24 18:29 Mode of Arrival: Ambulatory Source of Information: Patient Limitations: No Limitations Description of Symptoms (Recalled from ER Triage Doc. by RN): PT REPORTS RUQ PAIN X 3 DAYS. PAIN WORSE AFTER MEALS. REPORTS NAUSEA, DENIES VOMITING History of Present Illness HPI narrative: Patient is an obese 23-year-old presenting today with 3 days of postprandial right upper quadrant abdominal pain that is now become persistent. She states numerous people in her family have had had her gallbladder taken out in their 20s. She is concerned today that is the cause of her symptoms today. She denies any urinary symptoms nausea vomiting diarrhea chest pain fevers or chills etc. Related Data Previous Rx's ?Medication ?Instructions ?Recorded azithromycin 250 mg tablet See Rx Instructions PO .COMPLEX 5 04/08/24 (Zithromax Z-Jamarcus) days #6 tabs pseudoephedrine HCl 120 mg 120 mg PO Q12H PRN nasal 04/08/24 tablet,extended release (Sudafed congestion #20 tabs 12 Hour) Allergies Allergy/AdvReac Type Severity Reaction Status Date / Time fentanyl AdvReac Severe Acute Verified 12/08/23 08:58 Psychosis/Aggression [facility] Disclaimer: The information contained in this section may have been updated after the patient was seen, as this information can be updated by other users. Medical History Genital HSV HSV-1 and HSV-2 History of arthritis Anemia Psoriasis History of hypertension Type A WPW syndrome Atypical chest pain Surgical History [place] teeth extracted History of atrioventricular dangelo ablation History of tonsillectomy and adenoidectomy Family History Other Diabetes Heart attack Hypertension Social History Smoking Status: Never smoker alcohol intake: never current occupational status: employed Travel in the last 8 weeks: None Other Medical History Have you received the Flu Vaccine for this season: No Have you received the Pneumonia Vaccine: No ROS Obtained: Yes All systems reviewed & no additional complaints except as documented Physical Exam General General appearance: alert and in no apparent distress Respiratory Respiratory exam: Present normal lung sounds bilaterally and respiratory distress Cardiovascular Cardiovascular exam: Present regular rate and normal rhythm Abdominal Exam Abdominal exam: Present soft and tenderness (Right upper quadrant tenderness positive Heard sign no rebound or guarding elsewhere); Absent distention Neurological Exam Neurological exam: Present alert Medical Decision Making Medical Records Screening: Per USPSTF and CDC recommendations, given the prevalence of disease in our region, it is our hospital?s policy to screen for HIV and viral Hepatitis for all patients aged 18 and over and those with ongoing risk factors. [place] Inquiry Pt receiving controlled substance: No Vital Signs: 06/06/24 18:27 Temperature 98.3 F Temperature Source Oral Pulse Rate [Radial] 85 Respiratory Rate 16 Blood Pressure [Left Arm] 138/88 Blood Pressure Mean [Left Arm] 104 Blood Pressure Source [Left Arm] Automatic Cuff Blood Pressure Position [Left Arm] Sitting 02 Sat by Pulse Oximetry 100 Oxygen Delivery Method Room Air Lab Data Lab results reviewed: Yes I reviewed the patient's lab results. Lab Results 06/06/24 18:35: WBC 10.5, RBC 4.44, Hgb 11.5 L, Hct 35.6 L, MCV 80.2 L, MCH 25.8 L, MCHC 32.2, RDW 15.2, Plt Count 279, MPV 9.5, Neut % (Auto) 63.1, Lymph % (Auto) 30.3, [place] % (Auto) 3.9, Eos % (Auto) 1.9, Baso % (Auto) 0.9, Neut # (Auto) 6.6, Lymph # (Auto) 3.2, [place] # (Auto) 0.4, Eos # (Auto) 0.2, Baso # (Auto) 0.1, Sodium 139, Potassium 3.9, Chloride 102, Carbon Dioxide 25, Anion Gap 15.9 H, BUN 17, Creatinine 1.00, Estimated Creat Clear 79, Estimated GFR 69, Est GFR ( Amer) 83, Glucose 93, Calcium 8.6, Total Bilirubin 0.5, AST 23, ALT 27, Alkaline Phosphatase 53, Total Protein 6.9, Albumin 4.0, Globulin 2.9, Albumin/Globulin Ratio 1.4, Lipase 65, Serum HCG, Qual Negative, HIV 1&2 Antibody Rapid Nonreactive 06/06/24 19:14: Urine Color Yellow, Urine Appearance Clear, Urine pH 6.5, Ur Specific [place] 1.015, Urine Protein Trace, Urine Glucose (UA) Negative, Urine Ketones Negative, Urine Blood Negative, Urine Nitrate Negative, Urine Bilirubin Negative, Urine Urobilinogen 0.2, Ur Leukocyte Esterase Negative 06/06/24 18:35 06/06/24 18:35 Orders (Tests/Meds): ED MEDICATIONS Generic Name Dose Route Start Last Admin Trade Name Freq PRN Reason Stop Dose Admin Piperacillin Sod/Tazobactam 50 mls @ 100 mls/hr 06/06/24 20:29 Sod 3.375 gm/ Sodium Chloride IV 06/06/24 20:58 ONCE ONE Morphine Sulfate 4 mg 06/06/24 20:31 Morphine 4mg/Ml Syringe IV 07/06/24 20:30 Q4HP PRN pain Discontinued Medications Generic Name Dose Route Start Last Admin Trade Name Freq PRN Reason Stop Dose Admin Lactated Ringer's 1,000 mls @ 999 mls/hr 06/06/24 18:45 06/06/24 18:44 Lactated Ringer's 1000 Ml Bag IV 06/06/24 19:45 999 mls/hr .Q1H1M ROBBIE Administration Morphine Sulfate 4 mg 06/06/24 18:33 06/06/24 18:44 Morphine 4mg/Ml Syringe IV 06/06/24 18:34 4 mg ONCE ONE Administration Ondansetron HCl 4 mg 06/06/24 18:33 06/06/24 18:44 Ondansetron 4mg/2ml Vial IV 06/06/24 18:34 4 mg ONCE ONE Administration ORDERS Category Date Time Status POCUS Point of Care (ER Only) Stat Exams 06/06/24 18:33 Completed CBC w/Auto Diff [Complete Blood Count Auto Diff] Stat Lab 06/06/24 18:35 Completed CMP [Comprehensive Metabolic Panel] Stat Lab 06/06/24 18:35 Completed HCG Qualitative, Serum Stat Lab 06/06/24 18:35 Completed HIV (1&2) Antibody Rapid Stat Lab 06/06/24 18:35 Completed Hep C Ab with Reflex to RNA Stat Lab 06/06/24 18:35 Received Lipase Stat Lab 06/06/24 18:35 Completed UA [Urinalysis and Microscopic] Stat Lab 06/06/24 19:14 Results Medical Decision Narrative: 23-year-old with right upper quadrant abdominal pain this postprandial differential includes peptic ulcer disease biliary colic liver disease pancreatic disease etc. Bedside right upper quadrant ultrasound did in fact demonstrate cholelithiasis and she was focally tender with ultrasound with positive sonographic Heard's however no secondary evidence of cholecystitis such as anterior gallbladder wall thickening or pericholecystic fluid. However the presence of cholelithiasis with this amount of tenderness and pain I am still concerned about cholecystitis. Will obtain blood work give IV fluids and pain medicine and reassess. Reassessment 833 patient persistently tender with localized peritonitis in the right upper quadrant. Labs essentially unremarkable which is not unexpected in uncomplicated cholecystitis. I spoke with Dr. Bueno who is on-call we will put the patient in observation and he will evaluate the patient in the morning to make a definitive surgical plan but that is the tentative plan for her to go to the operating room in the morning for cholecystectomy. Procedures Miscellaneous Procedure Procedure Performed: Limited RUQ ultrasound Indication: Abdominal pain Identified structures: -Gallbladder -Gallbladder wall -Common bile duct -Liver Findings: Positive sonographic Heard's there are gallstones present no evidence of sludge no pericholecystic fluid common bile duct is within normal limits and anterior gallbladder wall is less than 0.3 cm no pericholecystic fluid Impression: Cholelithiasis with positive sonographic Heard's concerning for early cholecystitis versus symptomatic cholelithiasis Images were saved to permanent archive The study was technically adequate CPT 55224-78 This study was performed by me, and I personally interpreted all images/videos. Based on my clinical judgement, these images were added and did not necessitate further imaging. Critical Care Critical Care Time Critical Care Time: Yes Attestation: On 06/06/24, the high probability of a clinically significant, sudden or life threatening deterioration of the following system(s) required my full and direct attention, intervention and personal management. The time I documented below is in addition to time spent performing reported procedures but includes the following listed in this critical care notation. Total Time Total Critical Care Time: 35
[2024-06-06 18:48] LABS: Basophils # 0.1 K/mm3 (0-0.2); Basophils % 0.9 % (0.1-2.0); Eosinophils # 0.2 K/mm3 (0.0-0.4); Eosinophils % 1.9 % (0.1-12.0); Hematocrit 35.6 % (37.0-47.0); Hemoglobin 11.5 g/dL (12.2-16.2); Lymphocytes # 3.2 K/mm3 (0.7-4.5); Lymphocytes % 30.3 % (10-50); Mean Corpuscular HGB Conc 32.2 g/dL (31.8-35.4); Mean Corpuscular Hemoglobin 25.8 pg (27.0-31.2); Mean Corpuscular Volume 80.2 fl (81-99); Mean Platelet Volume 9.5 fl (7.4-10.4); Monocytes # 0.4 K/mm3 (0.1-1.0); Monocytes % 3.9 % (1.7-9.3); Neutrophils # 6.6 K/mm3 (1.8-7.8); Neutrophils % 63.1 % (37.0-80.0); Platelet Count 279 K/mm3 (142-424); Red Blood Count 4.44 M/mm3 (4.20-5.40); Red Cell Distribution Width 15.2 % (11.5-17.5); White Blood Count 10.5 K/mm3 (4.8-10.8)
[2024-06-06 19:17] LABS: Microscopic, Urine URINE MICROSCOPIC (MICROSCOPIC)
[2024-06-06 19:19] LABS: Alanine Aminotransferase 27 U/L (12-78); Albumin/Globulin Ratio 1.4 (1.1-1.8); Alkaline Phosphatase 53 U/L (38-126); Anion Gap 15.9 mEq/L (5-15); Aspartate Amino Transferase 23 U/L (14-36); Bilirubin,Total 0.5 mg/dl (0.2-1.3); Blood Urea Nitrogen 17 mg/dl (7-17); Calcium 8.6 mg/dl (8.4-10.2); Carbon Dioxide 25 mmol/L (22.0-30.0); Chloride 102 mmol/L (98-107); Creatinine Clearance Estimated 79 mL/min (50-200); Estimated Glomerular Filt Rate 69 ml/min (>60); GFR (African American) 83 ML/MIN (>60); Globulin 2.9 g/dL (1.3-3.2); Glucose 93 mg/dl (74-100); Lipase 65 U/L (23-300); Potassium 3.9 mmoL/L (3.5-5.1); Sodium 139 mmol/L (136-145); Total Protein,Serum 6.9 g/dl (6.3-8.2)
[2024-06-06 19:26] LABS: HCG Qualitative, Serum Negative (Negative)
[2024-06-06 19:41] LABS: HIV (1&2) Antibody Rapid NONREACTIVE (NONREACTIVE)
[2024-06-06 20:00] LABS: Appearance,Urine CLEAR (Clear); Bilirubin,Urine Negative (Negative); Blood, Urine Negative (Negative); Color,Urine YELLOW (Yellow); Glucose,Urine (UA) Negative (Negative); Ketones,Urine Negative (Negative); Leukocyte Esterase,Urine Negative (Negative); Nitrate,Urine Negative (Negative); PH,Urine 6.5 (5.0-8.5); Protein,Urine TRACE (Negative); Specific Gravity, Urine 1.015 (1.005-1.030); Urobilinogen,Urine 0.2 EU/dl (0.2)
[2024-06-06 20:48] LABS: Bacteria,Urine 1+ /lpf; RBC,Urine Occasional #/hpf (0-3)
--- NOTE | 2024-06-06 20:53 | PC.NURSE ---
attempted to call report at this time
[2024-06-06 20:59] VITALS: BP 125/71; PULSE 71; RESP 18; TEMP 36.8; O2SAT 100
[2024-06-06] MEDS: PIPERCILLIN/TAZO 3.375 GM in 0.9 % SODIUM CHLORIDE 50 ML IV (21:00)
--- NOTE | 2024-06-06 21:12 | PC.NURSE ---
Patient arrived to floor via wheelchair from ED at 21:09.
[2024-06-06 21:29] VITALS: BP 139/93; PULSE 68; RESP 16; TEMP 36.7; O2SAT 100; BMI 43.6
[2024-06-07] VITALS (11 sets, daily range): BP systolic 104–143; BP diastolic 55–87; PULSE 60–92; RESP 14–19; TEMP 36.2–37.3; O2SAT 93–99; BMI 43.6
--- NOTE | 2024-06-07 04:16 | PC.NURSE ---
23 yo fe pt is A/O X 4. She is able to ambulate to BR without difficulty. Pt ate [employer] shortly after admission and tolerated well. She has rested comfortably through the night.
[2024-06-07] MEDS: MORPHINE 4MG/ML SYRINGE 4 MG IV ×3 (06:12→15:48)
--- NOTE | 2024-06-07 06:54 | EXP.GEN.HP ---
HPI HPI HPI: This is a 23-year-old female who presented to the emergency department overnight with increasing right upper quadrant abdominal pain. Associated nausea but no emesis. Symptomatology exacerbated by food intake. Please see HPI and medical decision making forwarded from emergency department evaluation below. Forwarded from emergency department evaluation: Description of Symptoms (Recalled from ER Triage Doc. by RN): PT REPORTS RUQ PAIN X 3 DAYS. PAIN WORSE AFTER MEALS. REPORTS NAUSEA, DENIES VOMITING History of Present Illness HPI narrative: Patient is an obese 23-year-old presenting today with 3 days of postprandial right upper quadrant abdominal pain that is now become persistent. She states numerous people in her family have had had her gallbladder taken out in their 20s. She is concerned today that is the cause of her symptoms today. She denies any urinary symptoms nausea vomiting diarrhea chest pain fevers or chills etc. Medical Decision Narrative: 23-year-old with right upper quadrant abdominal pain this postprandial differential includes peptic ulcer disease biliary colic liver disease pancreatic disease etc. Bedside right upper quadrant ultrasound did in fact demonstrate cholelithiasis and she was focally tender with ultrasound with positive sonographic Heard's however no secondary evidence of cholecystitis such as anterior gallbladder wall thickening or pericholecystic fluid. However the presence of cholelithiasis with this amount of tenderness and pain I am still concerned about cholecystitis. Will obtain blood work give IV fluids and pain medicine and reassess. Reassessment 833 patient persistently tender with localized peritonitis in the right upper quadrant. Labs essentially unremarkable which is not unexpected in uncomplicated cholecystitis. I spoke with Dr. Bueno who is on-call we will put the patient in observation and he will evaluate the patient in the morning to make a definitive surgical plan but that is the tentative plan for her to go to the operating room in the morning for cholecystectomy. PFSH PFSH Disclaimer: The information contained in this section may have been updated after the patient was seen, as this information can be updated by other users. Medical History (Updated 06/07/24 @ 06:58 by Carl Kulkarni MD) Umbilical hernia Genital HSV History of arthritis Anemia Psoriasis History of hypertension Type A WPW syndrome Atypical chest pain Surgical History [place] teeth extracted History of atrioventricular dangelo ablation History of tonsillectomy and adenoidectomy Family History Other Diabetes Heart attack Hypertension Social History (Updated 06/06/24 @ 21:21 by Stephanie Pardo RN) Smoking Status: Never smoker alcohol intake: never current occupational status: employed Travel in the last 8 weeks: None Other Medical History Have you received the Flu Vaccine for this season: No Have you received the Pneumonia Vaccine: No Review of Systems Constitutional Constitutional: Denies body ache(s) and Denies chills Eyes Eyes: Reports system reviewed and no additional complaints, except as documented ENT Ears, Nose, Mouth, and Throat: Reports system reviewed and no additional complaints, except as documented *Cardiovascular Cardiovascular: Reports system reviewed and no additional complaints, except as documented *Respiratory Respiratory: Reports system reviewed and no additional complaints, except as documented *Gastrointestinal Gastrointestinal: Reports nausea *Genitourinary Genitourinary: Reports system reviewed and no additional complaints, except as documented *Musculoskeletal Musculoskeletal: Reports system reviewed and no additional complaints, except as documented Integumentary/Breasts Skin/Breast: Reports system reviewed and no additional complaints, except as documented *Neurologic Neurologic: Reports system reviewed and no additional complaints, except as documented Psychiatric Psychiatric: Reports system reviewed and no additional complaints, except as documented Endocrine Endocrine: Reports system reviewed and no additional complaints, except as documented Hematologic/Lymphatic Hematologic/Lymphatic: Reports system reviewed and no additional complaints, except as documented Allergic/Immunologic Allergic/Immunologic: Reports system reviewed and no additional complaints, except as documented Meds Home Medications and Allergies Home Medications ?Medication ?Instructions ?Recorded ?Confirmed ?Type brexpiprazole 1 mg tablet (Rexulti) 1 mg PO BID 06/06/24 06/06/24 History fluoxetine 10 mg capsule (Prozac) 10 mg PO DAILY 06/06/24 06/06/24 History risankizumab-rzaa 150 mg/mL 150 mg SQ CONSULT PHARMACY 06/06/24 06/06/24 History subcutaneous pen injector (Wilian) New Prescriptions to Start Prescriptions: Allergies Allergy/AdvReac Type Severity Reaction Status Date / Time fentanyl AdvReac Severe Acute Verified 12/08/23 08:58 Psychosis/Aggression Exam Data for Last 24 hours Vital signs and Labs for Last 24 Hours: Temp Pulse Resp BP Pulse Ox O2 Del Method 97.8 F 72 18 118/55 L 98 Room Air 06/07/24 04:00 06/07/24 04:00 06/07/24 04:00 06/07/24 04:00 06/07/24 04:00 06/07/24 06:44 Laboratory Results - last 24 hr 06/06/24 18:35: WBC 10.5, RBC 4.44, Hgb 11.5 L, Hct 35.6 L, MCV 80.2 L, MCH 25.8 L, MCHC 32.2, RDW 15.2, Plt Count 279, MPV 9.5, Neut % (Auto) 63.1, Lymph % (Auto) 30.3, [place] % (Auto) 3.9, Eos % (Auto) 1.9, Baso % (Auto) 0.9, Neut # (Auto) 6.6, Lymph # (Auto) 3.2, [place] # (Auto) 0.4, Eos # (Auto) 0.2, Baso # (Auto) 0.1, Sodium 139, Potassium 3.9, Chloride 102, Carbon Dioxide 25, Anion Gap 15.9 H, BUN 17, Creatinine 1.00, Estimated Creat Clear 79, Estimated GFR 69, Est GFR ( Amer) 83, Glucose 93, Calcium 8.6, Total Bilirubin 0.5, AST 23, ALT 27, Alkaline Phosphatase 53, Total Protein 6.9, Albumin 4.0, Globulin 2.9, Albumin/Globulin Ratio 1.4, Lipase 65, Serum HCG, Qual Negative, HIV 1&2 Antibody Rapid Nonreactive 06/06/24 19:14: Urine Color Yellow, Urine Appearance Clear, Urine pH 6.5, Ur Specific [place] 1.015, Urine Protein Trace, Urine Glucose (UA) Negative, Urine Ketones Negative, Urine Blood Negative, Urine Nitrate Negative, Urine Bilirubin Negative, Urine Urobilinogen 0.2, Ur Leukocyte Esterase Negative, Urine RBC Occasional, Urine WBC 3-5, Ur Squamous Epith Cells 5-10, Urine Bacteria 1+ I & O for Last 24 hours: Intake & Output 06/04/24 06/05/24 06/06/24 06/07/24 11:59 11:59 11:59 11:59 Intake Total 500 / 500 Balance 500 / 500 Weight 261 lb 11.019 oz Constitutional Constitutional: no acute distress *Routine HEENT Exam Head: Present normocephalic Eye: Present EOMI ENT: Present mucous membranes moist *Routine Neck Exam Neck: Present full ROM Routine Chest/Breast/Axilla Exam Chest wall: Absent tenderness *Routine Respiratory Exam Respiratory: Absent respiratory distress *Routine Cardiovascular Exam Cardiovascular: Absent tachycardia *Routine Abdominal Exam Abdominal: Present tenderness *Routine Rectal Exam Rectal:: deferred *Routine Genitalia Exam Genitalia:: deferred *Routine Extremities Exam Extremities: Present full ROM Routine Back/Spine/Pelvis Exam Back/Spine: Present full ROM *Routine Skin Exam Skin: Present intact *Routine Neurological Exam Neurological: Present alert and oriented X3 Routine Psychiatric Exam Psychiatric: Present normal affect Results Results Lab Results Last 24 Hours:: Laboratory Results - last 24 hr 06/06/24 18:35: WBC 10.5, RBC 4.44, Hgb 11.5 L, Hct 35.6 L, MCV 80.2 L, MCH 25.8 L, MCHC 32.2, RDW 15.2, Plt Count 279, MPV 9.5, Neut % (Auto) 63.1, Lymph % (Auto) 30.3, [place] % (Auto) 3.9, Eos % (Auto) 1.9, Baso % (Auto) 0.9, Neut # (Auto) 6.6, Lymph # (Auto) 3.2, [place] # (Auto) 0.4, Eos # (Auto) 0.2, Baso # (Auto) 0.1, Sodium 139, Potassium 3.9, Chloride 102, Carbon Dioxide 25, Anion Gap 15.9 H, BUN 17, Creatinine 1.00, Estimated Creat Clear 79, Estimated GFR 69, Est GFR ( Amer) 83, Glucose 93, Calcium 8.6, Total Bilirubin 0.5, AST 23, ALT 27, Alkaline Phosphatase 53, Total Protein 6.9, Albumin 4.0, Globulin 2.9, Albumin/Globulin Ratio 1.4, Lipase 65, Serum HCG, Qual Negative, HIV 1&2 Antibody Rapid Nonreactive 06/06/24 19:14: Urine Color Yellow, Urine Appearance Clear, Urine pH 6.5, Ur Specific [place] 1.015, Urine Protein Trace, Urine Glucose (UA) Negative, Urine Ketones Negative, Urine Blood Negative, Urine Nitrate Negative, Urine Bilirubin Negative, Urine Urobilinogen 0.2, Ur Leukocyte Esterase Negative, Urine RBC Occasional, Urine WBC 3-5, Ur Squamous Epith Cells 5-10, Urine Bacteria 1+ Assessment and Plan *Assessment and plan (1) Biliary colic: Status: Acute Category: Medical Code(s): K80.50 - Calculus of bile duct without cholangitis or cholecystitis without obstruction (2) Cholelithiasis: Status: Acute Qualifiers: Cholelithiasis location: gallbladder Cholecystitis presence: without cholecystitis Biliary obstruction: with biliary obstruction Qualified Code(s): K80.21 - Calculus of gallbladder without cholecystitis with obstruction Category: Medical Code(s): K80.20 - Calculus of gallbladder without cholecystitis without obstruction Plan Although the patient has no definitive evidence of cholecystitis her symptoms have not waned. The plan is to perform laparoscopic cholecystectomy later today. I have discussed the risks and benefits including, but not limited to: Bleeding Infection Damage to surrounding tissue Inherent risks of sedation The patient agrees to proceed.
[2024-06-07] MEDS: LACTATED RINGERS 1000ML 1,000 ML 125 ML IV (07:39)
[2024-06-07] MEDS: FLUOXETINE 10MG CAPSULE 10 MG PO (08:39)
--- NOTE | 2024-06-07 12:46 | P.PNANES_ITS ---
[facility] Disclaimer: The information contained in this section may have been updated after the patient was seen, as this information can be updated by other users. Medical History (Updated 06/07/24 @ 06:58 by Carl Kulkarni MD) Umbilical hernia Genital HSV History of arthritis Anemia Psoriasis History of hypertension Type A WPW syndrome Atypical chest pain Surgical History [place] teeth extracted History of atrioventricular dangelo ablation History of tonsillectomy and adenoidectomy Family History Other Diabetes Heart attack Hypertension Social History (Updated 06/06/24 @ 21:21 by Stephanie Pardo RN) Smoking Status: Never smoker alcohol intake: never substance use type: denies use current occupational status: employed Travel in the last 8 weeks: None [facility] Anesthesia Checklist Patient Identification Patient Identification: Arm Band and Family Structural Data Admitted From: Home Planned Operative Procedure/s: Lap Cholecystectomy. Consent for Planned Operative Procedure(s) Verified: Yes Verified Documents: Surgical Consent and History and Physical NPO Status Verified Time NPO: 00:00 Additional verifications Patient : No Anesthesia Reactions: Yes Hx Blood Transfusions: No Blood Transfusion Reaction: No Cephalosporin Allergy: No Previous Colonoscopy: No Airway Assessment Mallampati Score:: Class II C-Spine Mobility Assessed: Yes TMJ Mobility Assessed: Yes Dentition: Good Dentition Neurological Assessment Level of Consciousness: Alert, Appropriate and Follows Commands Hx Seizures: No Numbness or tingling in extremities: No Anesthesia Plan Anesthesia Risk discussed: Yes ASA Class: II Anesthesia Type: General Preoperative Comments Pre-Operative Comments: Had Heart ablation at age 18 for SVT. Allergic to Fentanyl.
[2024-06-07] MEDS: CEFAZOLIN SODIUM 2 GM in 0.9 % SODIUM CHLORIDE 100 ML IV (13:30)
[2024-06-07] MEDS: LIDOCAINE 1% 20ML MDV 20 ML (14:06)
[2024-06-07] MEDS: SODIUM CHLORIDE IRRIG SOLUTION 3,000 ML 3000 ML IR (14:07)
--- NOTE | 2024-06-07 14:27 | P.OP_ITS ---
Date of procedure: 06/07/24 Pre-op Diagnosis:: Calculus cholecystitis (likely acute on chronic) Biliary colic Post-op Diagnosis:: Same Procedure performed:: Laparoscopic cholecystectomy Surgeon:: Carl Kulkarni MD SUPERVISOR INSTRUMENT REPAIR:: Roland Dangelo Anesthesia: GETA Estimated blood loss (mL): 15 Operative findings:: Gallbladder distention Multiple stones Pericholecystic fat stranding Operative note:: After informed consent was obtained, the patient was taken to the operating room and placed in the supine position. General anesthesia was induced and the abdomen was prepped and draped in a sterile fashion. After infiltration with local anesthetic an supraumbilical incision was made. A Veress needle was placed in position. The abdomen was insufflated. A 5 mm optical trocar was placed in position. Under direct visualization, a 12 mm trocar was placed in the subxiphoid position and 2 additional 5 mm trocars were placed in the right upper quadrant. The gallbladder was elevated up and over the liver margin. The tissue around the cystic duct was carefully dissected. 3 clips were placed proximally and the duct was transected with harmonic rufino. Harmonic rufino were then utilized to dissect the gallbladder away from the liver margin with careful attention to the control of the cystic artery. The gallbladder was placed in a retrieval bag and removed through the subxiphoid trocar site. The right upper quadrant was thoroughly irrigated. No active bleeding or bile leak was noted. Fascia at the subxiphoid trocar site was reapproximated utilizing 0 Ethibond. The remaining trocars were removed. All wounds were irrigated and skin was closed with 4-0 Monocryl in a subcuticular fashion. Steri-Strips were applied. The patient's anesthetic agents were reversed and extubation was completed prior to transfer to recovery in stable condition. Condition: stable Disposition: PACU Specimens:: Gallbladder and contents Complications:: No immediate
--- NOTE | 2024-06-07 14:28 | P.DS_ITS ---
General Admission date:: 06/06/24 Discharge date: 06/07/24 HPI HPI HPI: This is a 23-year-old female who presented to the emergency department overnight with increasing right upper quadrant abdominal pain. Associated nausea but no emesis. Symptomatology exacerbated by food intake. Please see HPI and medical decision making forwarded from emergency department evaluation below. Forwarded from emergency department evaluation: Description of Symptoms (Recalled from ER Triage Doc. by RN): PT REPORTS RUQ PAIN X 3 DAYS. PAIN WORSE AFTER MEALS. REPORTS NAUSEA, DENIES VOMITING History of Present Illness HPI narrative: Patient is an obese 23-year-old presenting today with 3 days of postprandial right upper quadrant abdominal pain that is now become persistent. She states numerous people in her family have had had her gallbladder taken out in their 20s. She is concerned today that is the cause of her symptoms today. She denies any urinary symptoms nausea vomiting diarrhea chest pain fevers or chills etc. Medical Decision Narrative: 23-year-old with right upper quadrant abdominal pain this postprandial differential includes peptic ulcer disease biliary colic liver disease pancreatic disease etc. Bedside right upper quadrant ultrasound did in fact demonstrate cholelithiasis and she was focally tender with ultrasound with positive sonographic Heard's however no secondary evidence of cholecystitis such as anterior gallbladder wall thickening or pericholecystic fluid. However the presence of cholelithiasis with this amount of tenderness and pain I am still concerned about cholecystitis. Will obtain blood work give IV fluids and pain medicine and reassess. Reassessment 833 patient persistently tender with localized peritonitis in the right upper quadrant. Labs essentially unremarkable which is not unexpected in uncomplicated cholecystitis. I spoke with Dr. Bueno who is on-call we will put the patient in observation and he will evaluate the patient in the morning to make a definitive surgical plan but that is the tentative plan for her to go to the operating room in the morning for cholecystectomy. Hospital Course Hospital Course Hospital Course: The patient was admitted for observation/pain control and consideration of laparoscopic cholecystectomy. She remained afebrile with stable and normal vital signs; however, persistent right upper quadrant pain was noted on the morning of discharge. Therefore, the decision was made to undergo laparoscopic cholecystectomy. Please see operative report for detail. Postoperatively she convalesced well and was deemed appropriate for discharge. Condition at discharge: at discharge patient was afebrile with stable normal vital signs. She was ambulating and tolerating advancement of her diet. Exam Data for Last 24 hours Vital signs and Labs for Last 24 Hours: Temp Pulse Resp BP Pulse Ox O2 Del Method 98 F 67 19 122/70 95 Room Air 06/07/24 08:00 06/07/24 08:00 06/07/24 08:00 06/07/24 08:00 06/07/24 08:00 06/07/24 11:00 Laboratory Results - last 24 hr 06/06/24 18:35: WBC 10.5, RBC 4.44, Hgb 11.5 L, Hct 35.6 L, MCV 80.2 L, MCH 25.8 L, MCHC 32.2, RDW 15.2, Plt Count 279, MPV 9.5, Neut % (Auto) 63.1, Lymph % (Auto) 30.3, [place] % (Auto) 3.9, Eos % (Auto) 1.9, Baso % (Auto) 0.9, Neut # (Auto) 6.6, Lymph # (Auto) 3.2, [place] # (Auto) 0.4, Eos # (Auto) 0.2, Baso # (Auto) 0.1, Sodium 139, Potassium 3.9, Chloride 102, Carbon Dioxide 25, Anion Gap 15.9 H, BUN 17, Creatinine 1.00, Estimated Creat Clear 79, Estimated GFR 69, Est GFR ( Amer) 83, Glucose 93, Calcium 8.6, Total Bilirubin 0.5, AST 23, ALT 27, Alkaline Phosphatase 53, Total Protein 6.9, Albumin 4.0, Globulin 2.9, Albumin/Globulin Ratio 1.4, Lipase 65, Serum HCG, Qual Negative, HIV 1&2 Antibody Rapid Nonreactive 06/06/24 19:14: Urine Color Yellow, Urine Appearance Clear, Urine pH 6.5, Ur Specific [place] 1.015, Urine Protein Trace, Urine Glucose (UA) Negative, Urine Ketones Negative, Urine Blood Negative, Urine Nitrate Negative, Urine Bilirubin Negative, Urine Urobilinogen 0.2, Ur Leukocyte Esterase Negative, Urine RBC Occasional, Urine WBC 3-5, Ur Squamous Epith Cells 5-10, Urine Bacteria 1+ I & O for Last 24 hours: Intake & Output 06/05/24 06/06/24 06/07/24 06/08/24 11:59 11:59 11:59 11:59 Intake Total 500 / 500 Output Total 0 / 0 0 / 0 Balance 500 / 500 0 / 0 Weight 261 lb 11.019 oz Constitutional Constitutional: no acute distress *Routine HEENT Exam Head: Present normocephalic Eye: Present EOMI ENT: Present mucous membranes moist *Routine Neck Exam Neck: Present full ROM Routine Chest/Breast/Axilla Exam Chest wall: Absent tenderness *Routine Respiratory Exam Respiratory: Absent respiratory distress *Routine Cardiovascular Exam Cardiovascular: Absent tachycardia *Routine Abdominal Exam Abdominal: Present soft and tenderness *Routine Rectal Exam Patient deferred: visual exam and digital exam *Routine Exam Patient deferred: external exam *Routine Extremities Exam Extremities: Present full ROM Routine Back/Spine/Pelvis Exam Back/Spine: Present full ROM *Routine Skin Exam Skin: Absent erythema *Routine Neurological Exam Neurological: Present alert and oriented X3 Routine Psychiatric Exam Psychiatric: Present normal affect Results Data Completed and Pending Labs on day of discharge: Labs from last 24 hours 06/06/24 06/06/24 19:14 18:35 WBC 10.5 RBC 4.44 Hgb 11.5 L Hct 35.6 L MCV 80.2 L MCH 25.8 L MCHC 32.2 RDW 15.2 Plt Count 279 MPV 9.5 Neut % (Auto) 63.1 Lymph % (Auto) 30.3 [place] % (Auto) 3.9 Eos % (Auto) 1.9 Baso % (Auto) 0.9 Neut # (Auto) 6.6 Lymph # (Auto) 3.2 [place] # (Auto) 0.4 Eos # (Auto) 0.2 Baso # (Auto) 0.1 Sodium 139 Potassium 3.9 Chloride 102 Carbon Dioxide 25 Anion Gap 15.9 H BUN 17 Creatinine 1.00 Estimated Creat Clear 79 Estimated GFR 69 Est GFR ( Amer) 83 Glucose 93 Calcium 8.6 Total Bilirubin 0.5 AST 23 ALT 27 Alkaline Phosphatase 53 Total Protein 6.9 Albumin 4.0 Globulin 2.9 Albumin/Globulin Ratio 1.4 Lipase 65 Serum HCG, Qual Negative Urine Color Yellow Urine Appearance Clear Urine pH 6.5 Ur Specific [place] 1.015 Urine Protein Trace Urine Glucose (UA) Negative Urine Ketones Negative Urine Blood Negative Urine Nitrate Negative Urine Bilirubin Negative Urine Urobilinogen 0.2 Ur Leukocyte Esterase Negative Urine RBC Occasional Urine WBC 3-5 Ur Squamous Epith Cells 5-10 Urine Bacteria 1+ HIV 1&2 Antibody Rapid Nonreactive DS: Diagnosis Discharge Diagnosis (1) Calculus of gallbladder with acute and chronic cholecystitis without obstruction: Status: Acute Code(s): K80.12 - Calculus of gallbladder with acute and chronic cholecystitis without obstruction Meds Home Medications and Allergies Home Medications ?Medication ?Instructions ?Recorded ?Confirmed ?Type brexpiprazole 1 mg tablet (Rexulti) 1 mg PO DAILY 06/06/24 06/07/24 History fluoxetine 10 mg capsule (Prozac) 10 mg PO DAILY 06/06/24 06/06/24 History risankizumab-rzaa 150 mg/mL 150 mg SQ .[id number] 06/06/24 06/07/24 History subcutaneous pen injector (Skyrizi) hydrocodone 5 mg-acetaminophen 325 1 tab PO Q6H PRN post-op pain #17 06/07/24 Rx mg tablet tabs New Prescriptions to Start Prescriptions: hydrocodone-acetaminophen Carl Kulkarni Allergies Allergy/AdvReac Type Severity Reaction Status Date / Time fentanyl AdvReac Severe Acute Verified 12/08/23 08:58 Psychosis/Aggression Discharge Plan Disposition Patient Disposition: Home, Self-Care Condition: Good Follow up Plan Follow up with: Carl Kulkarni MD [Staff Physician] - 2 weeks Prescriptions/Medication Reconciliation: New hydrocodone-acetaminophen 5-325 mg tablet 1 tab PO Q6H PRN (Reason: post-op pain) Qty: 17 0RF Continued fluoxetine [Prozac] 10 mg Capsule 10 mg PO DAILY Rexulti 1 mg Tablet 1 mg PO DAILY Skyrizi 150 mg/mL pen injector 150 mg SQ .[id number] Problem Reconciliation Problems Reviewed?: Yes Patient Discharge Instructions ACTIVITY: Ambulate as tolerated and No heavy lifting DIET: advance to your usual diet Additional Instructions: Remove Steri-Strips and shower after 48 hours Leave Steri-Strips intact Patient Instructions: DI for Gallstones, DI for Surgical Site Infection, DI for Biliary Colic, DI for Laparoscopic Cholecystectomy Print Language: Japanese Providers Primary Care Provider: Jefe Schwartz Provider: Carl Kulkarni Attending Provider: Carl Kulkarni
--- NOTE | 2024-06-07 14:39 | EXP.ANES.I ---
[facility] Anesthesia Record Part I Anesthesia Record I Intake, IV Amount: 500 Hydration: Adequate Estimated blood loss (mL): 15 Urine output (mL): 0 Blood Products used (#): none Blood Pressure: 136/83 SaO2: 95 Pulse Rate: 77 Airway Patency: Patent Respiratory Rate: 14 Temperature: 97.8 F Patient is:: Drowsy and Stable Stable to PACU at:: 14:35
--- NOTE | 2024-06-08 07:47 | P.PNANES_ITS ---
[facility] Anesthesia Record Part II Anesthesia Record Part II Discharge Time: 15:05 Destination: Surgical Day Care (OP Surgery) PACU nurse assessment reviewed?: Yes Patient Condition:: Good Anesthesia Complications:: None Swallowing reflex intact?: Yes Airway Patency: Patent Cyanosis?: No Blood Pressure: 143/77 SaO2: 99 Respiratory Rate: 16 Pulse Rate: 77 Temperature: 97.8 F Mental Status: Alert & Oriented Pain level:: 0 Nausea and/or vomitting:: None Intake, IV Amount: 0 Hydration: Adequate
[2024-06-08 07:48] VITALS: BP 143/77; PULSE 77; RESP 16; TEMP 36.6; O2SAT 99
[2024-06-08 08:25] LABS: HCV Ab Non Reactive (Non Reactive)
--- NOTE | 2024-06-08 13:06 | CARE MANAGER ---
Contacted patient related to hospital discharge. Patient states she is doing well and has new medication. She is aware of follow up appointments. She needs a work excuse. Spoke with Kristine Isaacs on the 2nd floor. She states they will have it at the [facility] ed[facility] consultant window for her. Informed patient and she denied other questions. SUKUMAR Kiser
== END 2024-06-07 16:32 | disposition home or self-care (01) ==
LOC: ER 20:34 → 2ND 21:12
PROVIDERS: Admitting Provider Surgery; Emergency Provider Student in an Organized Health Care Education/Training Program; PCP Internal Medicine Adolescent Medicine; Visit Provider Surgery
PROC: 0FT44ZZ Resection of Gallbladder, Percutaneous Endoscopic Approach (ICD-10-PCS; CPT 47562; principal; 2024-06-07 13:30)
DX: K80.50 Calculus of bile duct without cholangitis or cholecystitis without obstruction (principal)
CPT/HCPCS: 47562; 80053; 81001; 83690; 84703; 85025; 86803; 87389; 88304; 96374; 99291; J3490; G0378; J0690; J1100; J1171; J2250; J2270; J2405; J2543; J7120

== ENCOUNTER 2024-07-12 13:43 | Emergency (ER) | payer OTHER, SELFPAY ==
[2024-07-12 14:40] VITALS: BP 129/78; PULSE 102; RESP 20; TEMP 36.7; O2SAT 98; BMI 41.2
[2024-07-12 14:43] LABS: UTC Strep Screen (Rapid) Negative (Negative)
--- NOTE | 2024-07-12 14:46 | ED_ITS ---
Discharge Plan Disposition Patient Disposition: Home, Self-Care Condition: Good Prescriptions Prescriptions: New methylprednisolone [Medrol (Jamarcus)] 4 mg tablets,dose pack See Rx Instructions .Route .COMPLEX 6 Days Qty: 21 0RF Rx Instructions: taper pack; amoxicillin-pot clavulanate 875-125 mg Tablet 1 tab PO Q12H 7 Days Qty: 14 0RF Referrals Follow up/Referrals: Jefe Schwartz MD [Primary Care Provider] - See instructions Activity Restrictions/Add. Instructions Additional Instructions/Restrictions: Monitor Temp, Over the counter Motrin or Tylenol as directed/as needed Tylenol every 4 hours and Motrin every 6 hours (as long as your family doctor has told you that you can take it) for fever or pain. and straight to ER if unable to lower temp less than 101.0 after medication given *Warm salt water gargles may help to soothe the throat *Throat Lozenges? *Warm fluids like tea with honey may help to soothe the throat? *Sleep elevated *Humidifier/Vaporizer Take medication as prescribed Your throat swab was sent for culture. Those results are typically sent to your primary care. Be sure to follow up in 2-3 days with your family doctor/primary care physician if no improvement so they can review those result and treat if necessary. If you don?t have a primary care doctor, I recommend you get one but in the mean time, you will have to return to a walk in clinic Follow up IMMEDIATELY for new or worsening symptoms or no Noticeable improvement over the next 48-72 hours. 911 for difficulty breathing or swallowing Clinical Impressions Clinical Impression: Sinusitis Instructions Patient Instructions: DI for Sinusitis, Sinusitis Print Language Print Language: Turkish Discharge ED Provider: Tatyana Lemus [facility] [place] General Stated complaint: sore throat ear pain congestion dizzy Mode of Arrival: Ambulatory Source of Information: Parent(s) Time Seen by Provider: 07/12/24 14:46 Description of Symptoms (Recalled from Triage Doc. by RN): SORE THROAT, CONGESTION, NAVARRETE HEENT Symptoms (Recalled from RN notes): Yes Resp Symptoms (Recalled from RN notes): No Skin Symptoms (Recalled from RN notes): No MS Symptoms (Recalled from RN notes): No Functional Status (Recalled from RN notes): WNL History of Present Illness Provider Complaint: Patient states that she has been having sinus pain and pressure, sore throat, and headache States that she feels like she has a bad sinus infection Related Data Previous Rx's ?Medication ?Instructions ?Recorded amoxicillin 875 mg-potassium 1 tab PO Q12H 7 days #14 tabs 07/12/24 clavulanate 125 mg tablet methylprednisolone 4 mg tablets in See Rx Instructions .Route 07/12/24 a dose pack (Medrol (Jamarcus)) .COMPLEX 6 days #21 tabs Allergies Allergy/AdvReac Type Severity Reaction Status Date / Time fentanyl AdvReac Severe Acute Verified 06/17/24 09:15 Psychosis/Aggression Worker's Comp Is this a Worker's Comp case?: No [facility] Disclaimer: The information contained in this section may have been updated after the patient was seen, as this information can be updated by other users. Medical History (Updated 07/12/24 @ 15:04 by Tatyana Lemus APRN) Calculus of gallbladder with acute and chronic cholecystitis without obstruction Sinusitis Vaginal bleeding during Pelvic pain affecting Bacteriuria during Urinary tract infection during Asymptomatic bacteriuria during Closed head injury Palpitations in pediatric patient Umbilical hernia Genital HSV History of arthritis Anemia Psoriasis History of hypertension Type A WPW syndrome Atypical chest pain Surgical History History of laparoscopic cholecystectomy [place] teeth extracted History of atrioventricular dangelo ablation History of tonsillectomy and adenoidectomy Family History Other Diabetes Heart attack Hypertension Social History Smoking Status: Never smoker alcohol intake: never substance use type: denies use current occupational status: employed Travel in the last 8 weeks: None ROS Obtained: Yes All systems reviewed & no additional complaints except as documented and Yes Systems reviewed as appropriate & no additional complaints except as documented Constitutional Constitutional: Reports system reviewed and no additional complaints, except as documented, Reports as per HPI and Reports headache(s) ENT Ears, Nose, Mouth, and Throat: Reports system reviewed and no additional complaints, except as documented, Reports as per HPI, Reports headache(s), Reports sinus pain and Reports sinus pressure Cardiovascular Cardiovascular: Reports system reviewed and no additional complaints, except as documented and Reports as per HPI Respiratory Respiratory: Reports system reviewed and no additional complaints, except as documented and Reports as per HPI Gastrointestinal Gastrointestingal: Reports system reviewed and no additional complaints, except as documented and as per HPI Genitourinary Female Genitourinary: Reports system reviewed and no additional complaints, except as documented and Reports as per HPI Musculoskeletal Musculoskeletal: Reports system reviewed and no additional complaints, except as documented and Reports as per HPI Neurologic Neurologic: Reports headache(s) Physical Exam General General appearance: alert and in no apparent distress ENT ENT exam: Present mucous membranes moist Expanded ENT Exam Nose exam: Present sinus tenderness Throat exam: Present other (PND noted) Respiratory Respiratory exam: Present normal lung sounds bilaterally; Absent respiratory distress or wheezes Cardiovascular Cardiovascular exam: Present regular rate, normal rhythm and normal heart sounds Neurological Exam Neurological exam: Present alert, oriented X3 and normal gait Medical Decision Making Medical Records Screening: Per USPSTF and CDC recommendations, given the prevalence of disease in our region, it is our hospital?s policy to screen for HIV and viral Hepatitis for all patients aged 18 and over and those with ongoing risk factors. Dylon Inquiry Pt receiving controlled substance: No Dylon was queried for this patient: No Vital Signs: 07/12/24 14:40 Temperature 98.1 F Temperature Source Oral Pulse Rate [Left Radial] 102 H Respiratory Rate 20 Blood Pressure [Left Arm] 129/78 Blood Pressure Mean [Left Arm] 95 02 Sat by Pulse Oximetry 98 Lab Data Lab results reviewed: Yes I reviewed the patient's lab results. Lab Results 07/12/24 14:42: Strep Scn Rapid Clinic Negative Orders (Tests/Meds): ORDERS Category Date Time Status Strep Screen Confirmation Stat Micro 07/12/24 14:42 Received
[2024-07-12 15:05] VITALS: BP 129/78; PULSE 102; RESP 20; TEMP 36.7
== END 2024-07-12 15:09 | disposition home or self-care (01) ==
PROVIDERS: Emergency Provider Nurse Practitioner; PCP Internal Medicine Adolescent Medicine
DX: J32.9 Chronic sinusitis, unspecified (principal); H92.03 Otalgia, bilateral; J02.9 Acute pharyngitis, unspecified; R09.81 Nasal congestion; R42 Dizziness and giddiness; R51.9 Headache, unspecified
CPT/HCPCS: 87880; 99212; G0381

== ENCOUNTER 2024-07-18 12:25 | Emergency (ER) | payer OTHER, SELFPAY ==
[2024-07-18 12:26] VITALS: BP 134/95; PULSE 107; RESP 18; TEMP 36.7; O2SAT 100; BMI 43.7
--- NOTE | 2024-07-18 12:55 | ED_ITS ---
Discharge Plan Disposition Patient Disposition: Home, Self-Care Prescriptions Prescriptions: No Action methylprednisolone [Medrol (Jamarcus)] 4 mg tablets,dose pack See Rx Instructions .Route .COMPLEX 6 Days Qty: 21 0RF Rx Instructions: taper pack; amoxicillin-pot clavulanate 875-125 mg Tablet 1 tab PO Q12H 7 Days Qty: 14 0RF Referrals Follow up/Referrals: Jefe Schwartz MD [Primary Care Provider] - See instructions Activity Restrictions/Add. Instructions Additional Instructions/Restrictions: Follow-up with CARDIOTHORACIC PHYSIOTHERAPIST. Please return the emerged part with any new, concerning, worsening symptoms. Clinical Impressions Clinical Impression: Hypertension Qualifiers: Hypertension type: unspecified Qualified Code(s): I10 - Essential (primary) hypertension Print Language Print Language: French Discharge ED Provider: John Eng General Adult HPI General Chief complaint: Recheck/Abnormal Lab/Rx Stated complaint: high bp, newly Time Seen by Provider: 07/18/24 12:28 Mode of Arrival: Ambulatory Source of Information: Patient Limitations: No Limitations History of Present Illness HPI narrative: This is a 23-year-old female G2, P1 currently about 7 or 8 weeks who presents with concern for hypertension. States that previous was complicated by eclampsia without hypertension. Reports last menstrual period 05/21. Had a positive test last Thursday. States that she has had intermittent episodes of flushing and dizziness with blood pressure up to 180s over 110s. States that they are happening almost daily. Called her CARDIOTHORACIC PHYSIOTHERAPIST who told her to come to the emergency department for further evaluation Related Data Previous Rx's ?Medication ?Instructions ?Recorded amoxicillin 875 mg-potassium 1 tab PO Q12H 7 days #14 tabs 07/12/24 clavulanate 125 mg tablet methylprednisolone 4 mg tablets in See Rx Instructions .Route 07/12/24 a dose pack (Medrol (Jamarcus)) .COMPLEX 6 days #21 tabs Allergies Allergy/AdvReac Type Severity Reaction Status Date / Time fentanyl AdvReac Severe Acute Verified 06/17/24 09:15 Psychosis/Aggression [facility] Disclaimer: The information contained in this section may have been updated after the patient was seen, as this information can be updated by other users. Medical History (Updated 07/18/24 @ 14:39 by John Eng MD) Calculus of gallbladder with acute and chronic cholecystitis without obstruction Sinusitis Vaginal bleeding during Pelvic pain affecting Bacteriuria during Urinary tract infection during Asymptomatic bacteriuria during Closed head injury Palpitations in pediatric patient Umbilical hernia Genital HSV History of arthritis Anemia Psoriasis History of hypertension Type A WPW syndrome Atypical chest pain Surgical History History of laparoscopic cholecystectomy [place] teeth extracted History of atrioventricular dangelo ablation History of tonsillectomy and adenoidectomy Family History Other Diabetes Heart attack Hypertension Social History Smoking Status: Current every day smoker tobacco type: e-cigarettes alcohol intake: never substance use type: denies use current occupational status: employed Travel in the last 8 weeks: None Other Medical History Have you received the Flu Vaccine for this season: No Have you received the Pneumonia Vaccine: No ROS Obtained: Yes All systems reviewed & no additional complaints except as documented Physical Exam General General appearance: alert and in no apparent distress Eye Eye exam: Present normal appearance, PERRL and EOMI Respiratory Respiratory exam: Present normal lung sounds bilaterally; Absent respiratory distress Cardiovascular Cardiovascular exam: Present regular rate and normal rhythm Abdominal Exam Abdominal exam: Present soft and distention; Absent tenderness, guarding or rebound Extremities Exam Extremities exam: Present normal inspection Neurological Exam Neurological exam: Present alert and oriented X3 Skin Skin exam: Present warm and dry Medical Decision Making Medical Records Medical records reviewed: Yes I reviewed the patient's medical records. Screening: Per USPSTF and CDC recommendations, given the prevalence of disease in our region, it is our hospital?s policy to screen for HIV and viral Hepatitis for all patients aged 18 and over and those with ongoing risk factors. Dylon Inquiry Pt receiving controlled substance: No Vital Signs: 07/18/24 12:26 07/18/24 13:00 07/18/24 14:46 Temperature 98.0 F 98.5 F Temperature Source Oral Pulse Rate 96 H 80 Pulse Rate [Radial] 107 H Respiratory Rate 18 20 Blood Pressure 133/87 136/83 Blood Pressure [Left Arm] 134/95 H Blood Pressure Mean [Left Arm] 108 Blood Pressure Source [Left Arm] Automatic Cuff Blood Pressure Position [Left Arm] Sitting 02 Sat by Pulse Oximetry 100 99 Oxygen Delivery Method Room Air Room Air Room Air Lab Data Lab Results 07/18/24 13:05: Urine RBC None, Urine WBC None, Ur Squamous Epith Cells Occasional, Urine Bacteria Trace 07/18/24 13:25: WBC 10.5, RBC 4.87, Hgb 12.6, Hct 38.3, MCV 78.7 L, MCH 25.8 L, MCHC 32.8, RDW 14.7, Plt Count 318, MPV 8.9, Neut % (Auto) 65.5, Lymph % (Auto) 27.5, [place] % (Auto) 3.7, Eos % (Auto) 2.5, Baso % (Auto) 0.6, Neut # (Auto) 6.9, Lymph # (Auto) 2.9, [place] # (Auto) 0.4, Eos # (Auto) 0.3, Baso # (Auto) 0.1, Sodium 141, Potassium 3.9, Chloride 107, Carbon Dioxide 27, Anion Gap 10.9, BUN 14, Creatinine 1.10 H, Estimated Creat Clear 72, Estimated GFR 62, Est GFR ( Amer) 74, Glucose 84, Calcium 8.8, Total Bilirubin 0.7, AST 46 H, ALT 61, Alkaline Phosphatase 61, Total Protein 7.0, Albumin 4.2, Globulin 2.8, Albumin/Globulin Ratio 1.5, HCG, Quant 169 H 07/18/24 13:25 07/18/24 13:25 Orders (Tests/Meds): ORDERS Category Date Time Status Beta HCG, Quant [HCG,Quantitative] Stat Lab 07/18/24 13:25 Completed CBC w/Auto Diff [Complete Blood Count Auto Diff] Stat Lab 07/18/24 13:25 Completed CMP [Comprehensive Metabolic Panel] Stat Lab 07/18/24 13:25 Completed Urinalysis and Microscopic Stat Lab 07/18/24 13:05 Results Medical Decision Narrative: In summary, this 23-year-old female G2, P1 currently 7 or 8 weeks presents to the emergency department today with concern for hypertension. On initial evaluation patient is afebrile, nontachycardic, normotensive with SBP in the 130s. Differential diagnosis includes but is not limited to gestational hypertension, chronic hypertension, renal dysfunction. Based on these concerns, I ordered CBC, CMP, quantitative beta-hCG. Labs personally reviewed demonstrate quantitative beta-hCG at 169, creatinine of 1.10 which is consistent with patient's baseline, unremarkable CBC. No evidence of UTI. On reassessment in stable condition with blood pressure of 130s over 80s anhd asymptomatic. Patient would not meet criteria for gestational hypertension or preeclampsia at this time however may have chronic hypertension. She is to follow-up with CARDIOTHORACIC PHYSIOTHERAPIST. Has a follow-up appointment early next week. Discharged in stable condition. Critical Care Critical Care Time Critical Care Time: No
[2024-07-18 13:00] VITALS: BP 133/87; PULSE 96; O2SAT 99
--- NOTE | 2024-07-18 13:01 | PC.NURSE ---
pt ambulatory to restroom without complications
--- NOTE | 2024-07-18 13:06 | PC.NURSE ---
UA sent to lab
[2024-07-18 13:11] LABS: Microscopic, Urine URINE MICROSCOPIC (MICROSCOPIC)
[2024-07-18 13:47] LABS: Appearance,Urine CLEAR (Clear); Bilirubin,Urine Negative (Negative); Blood, Urine Negative (Negative); Color,Urine YELLOW (Yellow); Glucose,Urine (UA) Negative (Negative); Ketones,Urine Negative (Negative); Leukocyte Esterase,Urine Negative (Negative); Nitrate,Urine Negative (Negative); Protein,Urine TRACE (Negative); Specific Gravity, Urine 1.015 (1.005-1.030); Urobilinogen,Urine 0.2 EU/dl (0.2)
[2024-07-18 14:06] LABS: Albumin Level 4.2 g/dl (3.5-5.0); Chloride 107 mmol/L (98-107); Potassium 3.9 mmoL/L (3.5-5.1); Sodium 141 mmol/L (136-145)
[2024-07-18 14:09] LABS: Alanine Aminotransferase 61 U/L (12-78); Albumin/Globulin Ratio 1.5 (1.1-1.8); Alkaline Phosphatase 61 U/L (38-126); Anion Gap 10.9 mEq/L (5-15); Aspartate Amino Transferase 46 U/L (14-36); Bilirubin,Total 0.7 mg/dl (0.2-1.3); Blood Urea Nitrogen 14 mg/dl (7-17); Calcium 8.8 mg/dl (8.4-10.2); Carbon Dioxide 27 mmol/L (22.0-30.0); Creatinine Clearance Estimated 72 mL/min (50-200); Estimated Glomerular Filt Rate 62 ml/min (>60); GFR (African American) 74 ML/MIN (>60); Globulin 2.8 g/dL (1.3-3.2); Glucose 84 mg/dl (74-100)
[2024-07-18 14:11] LABS: Basophils # 0.1 K/mm3 (0-0.2); Basophils % 0.6 % (0.1-2.0); Eosinophils # 0.3 K/mm3 (0.0-0.4); Eosinophils % 2.5 % (0.1-12.0); Hematocrit 38.3 % (37.0-47.0); Hemoglobin 12.6 g/dL (12.2-16.2); Lymphocytes # 2.9 K/mm3 (0.7-4.5); Lymphocytes % 27.5 % (10-50); Mean Corpuscular HGB Conc 32.8 g/dL (31.8-35.4); Mean Corpuscular Hemoglobin 25.8 pg (27.0-31.2); Mean Corpuscular Volume 78.7 fl (81-99); Mean Platelet Volume 8.9 fl (7.4-10.4); Monocytes # 0.4 K/mm3 (0.1-1.0); Monocytes % 3.7 % (1.7-9.3); Neutrophils # 6.9 K/mm3 (1.8-7.8); Neutrophils % 65.5 % (37.0-80.0); Platelet Count 318 K/mm3 (142-424); Red Blood Count 4.87 M/mm3 (4.20-5.40); Red Cell Distribution Width 14.7 % (11.5-17.5); White Blood Count 10.5 K/mm3 (4.8-10.8)
[2024-07-18 14:12] LABS: Bacteria,Urine Trace /lpf; Squamous Epithelial Cell,Urine Occasional #/hpf (0-5)
[2024-07-18 14:34] LABS: HCG,Quantitative 169 mIU/ml (0-5.42)
[2024-07-18 14:46] VITALS: BP 136/83; PULSE 80; RESP 20; TEMP 36.9; O2SAT 99
== END 2024-07-18 14:47 | disposition home or self-care (01) ==
PROVIDERS: Emergency Provider Student in an Organized Health Care Education/Training Program; PCP Internal Medicine Adolescent Medicine
DX: I10 Essential (primary) hypertension (principal); R42 Dizziness and giddiness; R23.2 Flushing; Z33.1 Pregnant state, incidental
CPT/HCPCS: 80053; 81001; 84702; 85025; 99283

== ENCOUNTER 2024-07-27 16:38 | Outpatient (CLI) | payer OTHER, SELFPAY ==
[2024-07-27 17:51] LABS: HCG,Quantitative 8427 mIU/ml (0-5.42)
== END 2024-07-27 23:59 | disposition home or self-care (01) ==
LOC: LAB 16:39
PROVIDERS: PCP Internal Medicine Adolescent Medicine; Visit Provider Obstetrics & Gynecology
DX: O20.0 Threatened abortion (principal)
CPT/HCPCS: 36415; 84702

== ENCOUNTER 2024-08-08 16:38 | Emergency (ER) | payer OTHER, SELFPAY ==
[2024-08-08 17:38] VITALS: BP 116/69; PULSE 83; RESP 16; TEMP 36.8; O2SAT 100; BMI 42.4
--- NOTE | 2024-08-08 17:39 | ED_ITS ---
Discharge Plan Disposition Patient Disposition: Home, Self-Care Condition: Good Prescriptions Prescriptions: New nitrofurantoin monohyd/m-cryst 100 mg capsule 100 mg PO BID 5 Days Qty: 10 0RF Rx Instructions: must administer with a meal/food No Action methylprednisolone [Medrol (Jamarcus)] 4 mg tablets,dose pack See Rx Instructions .Route .COMPLEX 6 Days Qty: 21 0RF Rx Instructions: taper pack; amoxicillin-pot clavulanate 875-125 mg Tablet 1 tab PO Q12H 7 Days Qty: 14 0RF Referrals Follow up/Referrals: Jefe Schwartz MD [Primary Care Provider] - See instructions Activity Restrictions/Add. Instructions Additional Instructions/Restrictions: Follow-up with your PCP if you continue to have symptoms as you may need further workup for your low back pain. I have sent a prescription into your pharmacy. Please take to all your medication is gone. Return to ER for any worsening signs or symptoms as needed. Clinical Impressions Clinical Impression: Sciatica Qualifiers: Laterality: bilateral Qualified Code(s): M54.31 - Sciatica, right side Urinary tract infectious disease Qualifiers: Urinary tract infection type: site unspecified Hematuria presence: without hematuria Qualified Code(s): N39.0 - Urinary tract infection, site not specified Instructions Patient Instructions: DI for Low Back Pain Print Language Print Language: Slovenian Discharge ED Provider: Panchito Mcintosh General Adult HPI <RACHANA Coy - Last Filed: 08/08/24 21:35> General Chief complaint: Back Pain/Injury Stated complaint: 7 weeks with abdominal pain,V/N Time Seen by Provider: 08/08/24 17:32 History of Present Illness HPI narrative: Patient presents for acute onset of low back pain. Patient states that she began having midline low back pain that started last night. She states that it radiates down both legs but left greater than right. She denies however any muscle weakness numbness tingling loss of motor or sensory. Patient is 7 weeks and a viable intrauterine has not yet been confirmed but does have evidence of potential intrauterine according to her [employer]. Patient also notes that she had 1 period of brief spotting today and has not recurred since. She denies any abdominal cramping chest pain shortness of breath saddle anesthesia loss of bowel or bladder function. Patient has also been suffering from hyperemesis gravidarum and has episodes of vomiting multiple times a day. She does not recall any specific trauma or injury to her low back. She has never had this before. Related Data Previous Rx's ?Medication ?Instructions ?Recorded amoxicillin 875 mg-potassium 1 tab PO Q12H 7 days #14 tabs 07/12/24 clavulanate 125 mg tablet methylprednisolone 4 mg tablets in See Rx Instructions .Route 07/12/24 a dose pack (Medrol (Jamarcus)) .COMPLEX 6 days #21 tabs nitrofurantoin 100 mg PO BID 5 days #10 caps 08/08/24 monohydrate/macrocrystals 100 mg capsule Allergies Allergy/AdvReac Type Severity Reaction Status Date / Time fentanyl AdvReac Severe Acute Verified 08/08/24 17:54 Psychosis/Aggression [facility] <RACHANA Coy - Last Filed: 08/08/24 21:35> [facility] Disclaimer: The information contained in this section may have been updated after the patient was seen, as this information can be updated by other users. Medical History (Updated 08/08/24 @ 21:22 by RACHANA Coy) Calculus of gallbladder with acute and chronic cholecystitis without obstruction Sinusitis Vaginal bleeding during Pelvic pain affecting Bacteriuria during Urinary tract infection during Asymptomatic bacteriuria during Closed head injury Palpitations in pediatric patient Umbilical hernia Genital HSV History of arthritis Anemia Psoriasis History of hypertension Type A WPW syndrome Atypical chest pain Surgical History History of laparoscopic cholecystectomy [place] teeth extracted History of atrioventricular dangelo ablation History of tonsillectomy and adenoidectomy Family History Other Diabetes Heart attack Hypertension Social History Smoking Status: Current every day smoker tobacco type: e-cigarettes alcohol intake: never substance use type: denies use current occupational status: employed Travel in the last 8 weeks: None Have you lived/traveled outside [place] in past 30 days?: No Contact w/someone who lives/traveled outside [place] past 30 days?: No Exposure to someone with infectious disease in past 14 days?: No Do you have a fever (greater than 100.4 F or 38 C)?: No Have you tested positive for COVID-19: No Exposed to someone with COVID-19 in past 14 days?: No Do you have a sore throat?: No Do you have a cough?: No Do you have any weakness?: No Do you have any diarrhea?: No Are you experiencing any unusual bleeding?: No Do you have any muscle aches/pain?: No Do you have any abdominal pain?: No Are you experiencing loss of taste or smell?: No Other Medical History Have you received the Flu Vaccine for this season: No Have you received the Pneumonia Vaccine: No <RACHANA Coy - Last Filed: 08/08/24 21:35> ROS Obtained: Yes Systems reviewed as appropriate & no additional complaints except as documented Physical Exam <RACHANA Coy - Last Filed: 08/08/24 21:35> General General appearance: alert and in no apparent distress Respiratory Respiratory exam: Present normal lung sounds bilaterally Cardiovascular Cardiovascular exam: Present regular rate Neurological Exam Neurological exam: Present alert and oriented X3 Medical Decision Making <RACHANA Coy - Last Filed: 08/08/24 21:35> Medical Records Medical records reviewed: Yes I reviewed the patient's medical records. Screening: Per USPSTF and CDC recommendations, given the prevalence of disease in our region, it is our hospital?s policy to screen for HIV and viral Hepatitis for all patients aged 18 and over and those with ongoing risk factors. Dylon Inquiry Pt receiving controlled substance: No Vital Signs: 08/08/24 17:38 08/08/24 21:04 08/08/24 21:31 Temperature 98.3 F 97.9 F Temperature Source Oral Oral Pulse Rate 65 68 Pulse Rate [Left] 83 Respiratory Rate 16 14 Blood Pressure 111/48 L 111/48 L Blood Pressure [Right Arm] 116/69 Blood Pressure Mean [Right Arm] 84 Blood Pressure Source Automatic Cuff Blood Pressure Source [Right Arm] Automatic Cuff Blood Pressure Position Supine Blood Pressure Position [Right Arm] Sitting 02 Sat by Pulse Oximetry 100 100 Oxygen Delivery Method Room Air Room Air Lab Data Lab results reviewed: Yes I reviewed the patient's lab results. Lab Results 08/08/24 17:38: WBC 11.0 H, RBC 4.30, Hgb 11.1 L, Hct 34.9 L, MCV 81.2, MCH 25.8 L, MCHC 31.8, RDW 14.7, Plt Count 316, MPV 11.7 H, Neut % (Auto) 63.6, Lymph % (Auto) 28.7, [place] % (Auto) 5.1, Eos % (Auto) 1.5, Baso % (Auto) 0.4, Neut # (Auto) 7.0, Lymph # (Auto) 3.2, [place] # (Auto) 0.6, Eos # (Auto) 0.2, Baso # (Auto) 0.0, Sodium 132 L, Potassium 4.0, Chloride 103, Carbon Dioxide 23, Anion Gap 10.0, BUN 15, Creatinine 1.10 H, Estimated Creat Clear 74, Estimated GFR 62, Est GFR ( Amer) 74, Glucose 79, Calcium 8.8, Magnesium 1.7, Total Bilirubin 0.6, AST 30, ALT 40, Alkaline Phosphatase 60, Total Protein 6.8, Albumin 4.0, Globulin 2.8, Albumin/Globulin Ratio 1.4, Lipase 47, HCG, Quant [id number] H 08/08/24 19:40: Urine Color Yellow, Urine Appearance Slightly cloudy, Urine pH 6.0, Ur Specific [place] 1.025, Urine Protein 1+ A, Urine Glucose (UA) Negative, Urine Ketones Negative, Urine Blood Negative, Urine Nitrate Negative, Urine Bilirubin Negative, Urine Urobilinogen 0.2, Ur Leukocyte Esterase 1+ A, Urine RBC None, Urine WBC 10-20, Ur Squamous Epith Cells 10-20, Urine Bacteria 2+ 08/08/24 17:38 08/08/24 17:38 Orders (Tests/Meds): ED MEDICATIONS Discontinued Medications Generic Name Dose Route Start Last Admin Trade Name Freq PRN Reason Stop Dose Admin Acetaminophen 1,000 mg 08/08/24 17:54 08/08/24 18:14 Acetaminophen 500mg Tab PO 08/08/24 17:55 1,000 mg ONCE ONE Administration Cephalexin HCl 500 mg 08/08/24 20:53 08/08/24 20:58 Cephalexin 500mg Capsule PO 08/08/24 20:54 Not Given ONCE ONE Nitrofurantoin Macrocrystals 100 mg 08/08/24 20:58 08/08/24 21:01 Nitrofurantoin 100mg Capsule PO 08/08/24 20:59 100 mg ONCE ONE Administration Ondansetron HCl 4 mg 08/08/24 17:54 08/08/24 18:14 Ondansetron 4mg Odt SL 08/08/24 17:55 4 mg ONCE ONE Administration ORDERS Category Date Time Status CBC w/Auto Diff [Complete Blood Count Auto Diff] Stat Lab 08/08/24 17:38 Completed CMP [Comprehensive Metabolic Panel] Stat Lab 08/08/24 17:38 Completed HCG,Quantitative Stat Lab 08/08/24 17:38 Completed Lipase Stat Lab 08/08/24 17:38 Completed Magnesium Stat Lab 08/08/24 17:38 Completed UA [Urinalysis and Microscopic] Stat Lab 08/08/24 19:40 Completed Urine Culture Stat Micro 08/08/24 19:40 Received Medical Decision Narrative: In summary patient is a 43-year-old female who presents to the emergency department for evaluation of low back pain. Patient is hemodynamically stable upon arrival, afebrile. Physical exam is remarkable for lumbar tenderness both in the midline and in the paraspinous muscles but no bony deformity. Patient has no saddle anesthesia. She is neurovascularly intact distally. She has full range of motion of her lower extremities. He has no CVA tenderness. There is no abdominal tenderness.. Differential diagnosis includes muscle strain versus sciatica versus urinary tract infection etc. Initial workup will be conducted with hematologic labs urinalysis. Initial interventions include Tylenol, I offered Lidoderm patch but patient declined. Initial workup reviewed by me shows her hematologic labs are nonactionable and urinalysis is negative for blood is positive for 10-20 white cells 10-20 epithelial cells and 2+ bacteria. Upon repeat evaluation patient reported only modest improvement after initial intervention. Given this patient is appropriate for discharge with a prescription for Macrobid with first dose given here and strict return precautions. I suspect she may have sciatica but may need MRI if her symptoms persist or worsen. Patient to follow-up closely with her PCP or return to ER as needed. Patient has the portal and will follow-up with her beta hCG via the online portal <Panchito Mcintosh MD - Last Filed: 08/09/24 15:01> Vital Signs: 08/08/24 17:38 08/08/24 21:04 08/08/24 21:31 Temperature 98.3 F 97.9 F Temperature Source Oral Oral Pulse Rate 65 68 Pulse Rate [Left] 83 Respiratory Rate 16 14 Blood Pressure 111/48 L 111/48 L Blood Pressure [Right Arm] 116/69 Blood Pressure Mean [Right Arm] 84 Blood Pressure Source Automatic Cuff Blood Pressure Source [Right Arm] Automatic Cuff Blood Pressure Position Supine Blood Pressure Position [Right Arm] Sitting 02 Sat by Pulse Oximetry 100 100 Oxygen Delivery Method Room Air Room Air Lab Data Lab Results 08/08/24 17:38: WBC 11.0 H, RBC 4.30, Hgb 11.1 L, Hct 34.9 L, MCV 81.2, MCH 25.8 L, MCHC 31.8, RDW 14.7, Plt Count 316, MPV 11.7 H, Neut % (Auto) 63.6, Lymph % (Auto) 28.7, [place] % (Auto) 5.1, Eos % (Auto) 1.5, Baso % (Auto) 0.4, Neut # (Auto) 7.0, Lymph # (Auto) 3.2, [place] # (Auto) 0.6, Eos # (Auto) 0.2, Baso # (Auto) 0.0, Sodium 132 L, Potassium 4.0, Chloride 103, Carbon Dioxide 23, Anion Gap 10.0, BUN 15, Creatinine 1.10 H, Estimated Creat Clear 74, Estimated GFR 62, Est GFR ( Amer) 74, Glucose 79, Calcium 8.8, Magnesium 1.7, Total Bilirubin 0.6, AST 30, ALT 40, Alkaline Phosphatase 60, Total Protein 6.8, Albumin 4.0, Globulin 2.8, Albumin/Globulin Ratio 1.4, Lipase 47, HCG, Quant [id number] H 08/08/24 19:40: Urine Color Yellow, Urine Appearance Slightly cloudy, Urine pH 6.0, Ur Specific [place] 1.025, Urine Protein 1+ A, Urine Glucose (UA) Negative, Urine Ketones Negative, Urine Blood Negative, Urine Nitrate Negative, Urine Bilirubin Negative, Urine Urobilinogen 0.2, Ur Leukocyte Esterase 1+ A, Urine RBC None, Urine WBC 10-20, Ur Squamous Epith Cells 10-20, Urine Bacteria 2+ Orders (Tests/Meds): ED MEDICATIONS Discontinued Medications Generic Name Dose Route Start Last Admin Trade Name Freq PRN Reason Stop Dose Admin Acetaminophen 1,000 mg 08/08/24 17:54 08/08/24 18:14 Acetaminophen 500mg Tab PO 08/08/24 17:55 1,000 mg ONCE ONE Administration Cephalexin HCl 500 mg 08/08/24 20:53 08/08/24 20:58 Cephalexin 500mg Capsule PO 08/08/24 20:54 Not Given ONCE ONE Nitrofurantoin Macrocrystals 100 mg 08/08/24 20:58 08/08/24 21:01 Nitrofurantoin 100mg Capsule PO 08/08/24 20:59 100 mg ONCE ONE Administration Ondansetron HCl 4 mg 08/08/24 17:54 08/08/24 18:14 Ondansetron 4mg Odt SL 08/08/24 17:55 4 mg ONCE ONE Administration ORDERS Category Date Time Status CBC w/Auto Diff [Complete Blood Count Auto Diff] Stat Lab 08/08/24 17:38 Completed CMP [Comprehensive Metabolic Panel] Stat Lab 08/08/24 17:38 Completed HCG,Quantitative Stat Lab 08/08/24 17:38 Completed Lipase Stat Lab 08/08/24 17:38 Completed Magnesium Stat Lab 08/08/24 17:38 Completed UA [Urinalysis and Microscopic] Stat Lab 08/08/24 19:40 Completed Urine Culture Stat Micro 08/08/24 19:40 Received Medical Decision Narrative: In summary patient is a 43-year-old female who presents to the emergency department for evaluation of low back pain. Patient is hemodynamically stable upon arrival, afebrile. Physical exam is remarkable for lumbar tenderness both in the midline and in the paraspinous muscles but no bony deformity. Patient has no saddle anesthesia. She is neurovascularly intact distally. She has full range of motion of her lower extremities. He has no CVA tenderness. There is no abdominal tenderness.. Differential diagnosis includes muscle strain versus sciatica versus urinary tract infection etc. Initial workup will be conducted with hematologic labs urinalysis. Initial interventions include Tylenol, I offered Lidoderm patch but patient declined. Initial workup reviewed by me shows her hematologic labs are nonactionable and urinalysis is negative for blood is positive for 10-20 white cells 10-20 epithelial cells and 2+ bacteria. Upon repeat evaluation patient reported only modest improvement after initial intervention. Given this patient is appropriate for discharge with a prescription for Macrobid with first dose given here and strict return precautions. I suspect she may have sciatica but may need MRI if her symptoms persist or worsen. Patient to follow-up closely with her PCP or return to ER as needed. Patient has the portal and will follow-up with her beta hCG via the online portal I was consulted by the GISELLE, and we discussed the complexity of the problems being addressed. I approved the treatment and management plan for this patient's care in the Emergency Department, thus performing a substantive portion of the medical decision making. Panchito Mcintosh MD Critical Care <RACHANA Coy - Last Filed: 08/08/24 21:35> Critical Care Time Critical Care Time: No
[2024-08-08] MEDS: ACETAMINOPHEN 500MG TAB 1000 MG PO (18:14)
[2024-08-08] MEDS: ONDANSETRON 4MG ODT 4 MG SL (18:14)
[2024-08-08 18:20] LABS: Basophils % 0.4 % (0.1-2.0); Eosinophils # 0.2 K/mm3 (0.0-0.4); Eosinophils % 1.5 % (0.1-12.0); Hematocrit 34.9 % (37.0-47.0); Hemoglobin 11.1 g/dL (12.2-16.2); Lymphocytes # 3.2 K/mm3 (0.7-4.5); Lymphocytes % 28.7 % (10-50); Mean Corpuscular HGB Conc 31.8 g/dL (31.8-35.4); Mean Corpuscular Hemoglobin 25.8 pg (27.0-31.2); Mean Corpuscular Volume 81.2 fl (81-99); Mean Platelet Volume 11.7 fl (7.4-10.4); Monocytes # 0.6 K/mm3 (0.1-1.0); Monocytes % 5.1 % (1.7-9.3); Neutrophils % 63.6 % (37.0-80.0); Platelet Count 316 K/mm3 (142-424); Red Cell Distribution Width 14.7 % (11.5-17.5)
[2024-08-08 18:30] LABS: Chloride 103 mmol/L (98-107); Sodium 132 mmol/L (136-145)
[2024-08-08 18:33] LABS: Alanine Aminotransferase 40 U/L (12-78); Albumin/Globulin Ratio 1.4 (1.1-1.8); Alkaline Phosphatase 60 U/L (38-126); Aspartate Amino Transferase 30 U/L (14-36); Bilirubin,Total 0.6 mg/dl (0.2-1.3); Blood Urea Nitrogen 15 mg/dl (7-17); Calcium 8.8 mg/dl (8.4-10.2); Carbon Dioxide 23 mmol/L (22.0-30.0); Creatinine Clearance Estimated 74 mL/min (50-200); Estimated Glomerular Filt Rate 62 ml/min (>60); GFR (African American) 74 ML/MIN (>60); Globulin 2.8 g/dL (1.3-3.2); Glucose 79 mg/dl (74-100); Lipase 47 U/L (23-300); Total Protein,Serum 6.8 g/dl (6.3-8.2)
[2024-08-08 18:34] LABS: Magnesium 1.7 mg/dl (1.6-2.3)
[2024-08-08 19:45] LABS: Microscopic, Urine URINE MICROSCOPIC (MICROSCOPIC)
[2024-08-08 20:17] LABS: Bilirubin,Urine Negative (Negative); Blood, Urine Negative (Negative); Color,Urine YELLOW (Yellow); Glucose,Urine (UA) Negative (Negative); Ketones,Urine Negative (Negative); Leukocyte Esterase,Urine 1+ (Negative); Nitrate,Urine Negative (Negative); Protein,Urine 1+ (Negative); Specific Gravity, Urine 1.025 (1.005-1.030); Urobilinogen,Urine 0.2 EU/dl (0.2)
[2024-08-08 20:26] LABS: Appearance,Urine Slightly Cloudy (Clear)
[2024-08-08 20:43] LABS: Bacteria,Urine 2+ /lpf
[2024-08-08] MEDS: NITROFURANTOIN 100MG CAPSULE 100 MG PO (21:01)
[2024-08-08 21:04] VITALS: BP 111/48; PULSE 65; O2SAT 100
[2024-08-08 21:31] VITALS: BP 111/48; PULSE 68; RESP 14; TEMP 36.6; O2SAT 100
--- NOTE | 2024-08-08 21:33 | PC.NURSE ---
Patient IV removed. Catheter tip intact. Bleeding controlled.
[2024-08-08 21:40] LABS: HCG,Quantitative 112050 mIU/ml (0-5.42)
== END 2024-08-08 21:37 | disposition home or self-care (01) ==
PROVIDERS: Physician Assistant; Emergency Provider Emergency Medicine; PCP Internal Medicine Adolescent Medicine
DX: N39.0 Urinary tract infection, site not specified (principal); M54.31 Sciatica, right side; M54.50 Low back pain, unspecified; R11.10 Vomiting, unspecified
CPT/HCPCS: 80053; 81001; 83690; 83735; 84702; 85025; 87086; 99283; Q0162

== ENCOUNTER 2025-04-03 09:44 | Outpatient (CLI) | payer OTHER, SELFPAY ==
--- OUTSIDE RECORDS SUMMARY | 2025-02-03 14:30 | XMS_ITS | Encounter Summary ---
Author Organization [facility] Address [address] [place] [address] Care Team Providers Care Design Assembler Name Role Phone Jefe Schwartz MD Primary Care Provider [phone] Reason for Referral * Diagnostic Imaging (Emergency) - Closed Specialty Diagnoses / Procedures Referred By Contact Referred To Contact Obstetrics and Gynecology Diagnoses History of pre-eclampsia in prior , currently 32 weeks gestation of Essential hypertension NST (non-stress test) nonreactive Procedures US Biophysical Profile;With Non-Stress Testing Sandy Ruelas APRN [address] [facility] [address] [place] [phone] Phone: tel: fax: [facility] OBGYN [address] [facility] [address] [place] [phone] Phone: tel: fax: Referral ID Status Reason Start Date Expiration Date Visits Re quested Visits Authorized [id number] Closed 02/03/2025 05/05/2026 1 1 Reason for Visit * Reason Comments Routine Visit Encounter Details Date Type Department Care Team (Late st Contact Info) Description 02/03/2025 2:30 PM EDT Routine [facility] O[facility]YN [address] [facility] [address] [place] [phone] Sandy Ruelas APRN [address] [facility] [address] [place] [address] GA: 32w4d Social History Tobacco Use Types Packs/Day Years Used Date Smoking Tobacco: Former Cigarettes Q uit: 01/2024 Smokeless Tobacco: Never Comments:Vape. Alcohol Use Standard Drinks/Week Comments Never 0 (1 standard drink = 0.6 oz pur e alcohol) [facility] Utilities Answer Date Recorded In the past 12 months has th e [employer], gas, oil, or water [employer] threatened to shut off services in your home? No 01/23/2025 AUDIT-C Answer Date Recorded Q1: How often do you have a drink containing alcohol? Never 01/23/2025 Q2: How many drinks containi ng alcohol do you have on a typical day when you are drinking? Patient does not drink Q3: How often do you have si x or more drinks on one occasion? Never 01/23/2025 Overall Financial Resource Strain (CARDIA) Answe r Date Recorded How hard is it for you to pa y for the very basics like food, housing, medical care, and heating? Not hard at all 01/23/2025 [facility] - Occupational Stress Questionnaire Answer Date Recorded Do you feel stress - tense, restless, nervous, or anxious, or unable to sleep at night because your mind is troubled all the time - these days? Not at all 01/23/2025 Exercise Vital Sign Answer Date Recorde d On average, how many days pe r week do you engage in moderate to strenuous exercise (like a brisk walk)? 3 days 01/23/2025 On average, how many minutes do you engage in exercise at this level? 20 min 01/23/2025 Hunger Vital Sign Answer Date Recorded Within the past 12 months, y ou worried that your food would run out before you got the money to buy more. Never true 01/24/20 25 Within the past 12 months, t he food you bought just didn't last and you didn't have money to get more. Never true 01/23/2025 PRAPARE - Transportation Answer Date Re corded In the past 12 months, has l ack of transportation kept you from medical appointments or from getting medications? No 01/08 In the past 12 months, has l ack of transportation kept you from meetings, work, or from getting things needed for daily living? No 01/23/2025 Wesley Depression Scale Answer Date Recorded Retired [place] Depression Score 11 02/23/2024 Retired EPD Scale: Thought of Harming Self Unrec ognized value 02/23/2024 Abuse Screen Answer Date Recorded Feels Unsafe at Home or Work/School no 01/23/2025 Feels Threatened by Someone no 01/08 Does Anyone Try to Keep You From Having Contact with Others or Doing Things Outside Your Home? no 01/23/2025 Physical Signs of Abuse Present no 01/23/2025 Housing Stability Answer Date Recorded Current Living Arrangements home 01/08 Potentially Unsafe Housing Conditions none 01/23/2025 Family and Community Support Answer Jayson e Recorded If for any reason you need h elp with day-to-day activities such as bathing, preparing meals, shopping, managing finances, etc., do you get the help you need? I don't need any help 01/23/2025 How often do you feel lonely or isolated from those around you? Never 01/23/2025 Employment Answer Date Recorded Do you want help finding or keeping work or a job? I do not need or want help 01/23/2025 Disabilities Answer Date Recorded Difficulty Concentrating, Remembering or Making Decisions no 01/23/2025 Difficulty Managing Errands Independently no 01/23/2025 Education Answer Date Recorded Do you want help with school or training? For example, starting or completing job training or getting a high school diploma, GED or equivalent No 01/23/2025 Preferred Language Rwandan 01/23/2025 PHQ-2 Answer Date Recorded Patient Health Questionnaire-2 Score 0 01/23/2025 Education Answer Date Recorded What is the highest level of school you have completed or the highest degree you have received? Associate degree: occupational, technical, or vocational program 12/13/2024 Comments Yes Sex and Gender Information Value Date Recorded Sex Assigned at Female 02/09/2025 9:23 PM EDT Legal Sex Female 11:40 AM EDT Gender Identity Not on file Sexual Orientation Choose not to disclose 2024 9:23 PM EDT documented as of this encounter Last Filed Vital Signs Vital Sign Reading Time Taken Comments Blood Pressure 118/70 02/03/2025 3:19 PM EDT Pulse - - Temperature - - Respiratory Rate - - Oxygen Saturation - - Inhaled Oxygen Concentration - - Weight 122 kg (269 lb) 02/03/2025 3:19 PM EDT Height - - Body Mass Index 44.76 01/23/2025 10:15 PM EDT documented in this encounter Progress Notes * Sandy Ruelas, [employer] - 02/03/2025 2:30 PM EDT Images from the original note were not included. OB FOLLOW UP CC- Here for care of Lisa Elle Riley is a 24 y.o. 32w4d patient being seen today for her obstetrical follow up visit. Patient reports decreased movement since last hospital admission, irregular contractions, headaches, heartburn, lower back pain- denies dysuria. Her care is complicated by (and status) : Chronic HTN. Her average BP has been 110-120/80-90. Patient Active Problem List Diagnosis WPW (Ovrgp-Bjtehbrll-Vmgnl syndrome) SVT (supraventricular tachycardia) Herpes simplex type 2 (HSV-2) infection affecting , antepartum Morbid obesity with BMI of 45.0-49.9, adult Cigarette smoker History of pre-eclampsia in prior , currently Screening for cervical cancer Threatened Chronic hypertension affecting Nausea and vomiting in Proteinuria affecting , antepartum Second trimester Autoimmune disorder BV (bacterial vaginosis) Threatened labor, second trimester labor in second trimester Iron deficiency anemia secondary to inadequate dietary iron intake labor in third trimester without delivery TDAP status: received at last visit Rhogam status: was not indicated 28 week labs: Reviewed and Labs show anemia. She is taking additional iron supplement. Ultrasound Today: No Non Stress Test: Yes minutes 20+ non-stress test: nonreactive; BPP 03/17 indication: Hypertension ROS - Patient Denies: Loss of Fluid, Vaginal Spotting, Vision Changes, Nausea , Vomiting , Epigastric pain, and skin itching Movement : decreased Other than what is documented in the HPI, all other systems reviewed and are negative. The additional following portions of the patient's history were reviewed and updated as appropriate: allergies and current medications. I have reviewed and agree with the HPI, ROS, and historical information as entered above. Sandy Ruelas, GR[employer]ING BP 118/70 Wt 122 kg (269 lb) LMP 05/24/2024 BMI 44.76 kg/m?? EXAM: Vitals BP: 118/70 Weight: 122 kg (269 lb) Urine Glucose Read-only: Negative Urine Protein Read-only: (!) Trace Assessment and Plan Problem List Items Addressed This Visit Endocrine and Metabolic Morbid obesity with BMI of 45.0-49.9, adult Overview BMI 44 Anomaly scan at [facility]. Gravid and History of pre-eclampsia in prior , currently - Primary Overview On ASA 81 mg after 10 weeks gestation. Relevant Orders US Biophysical Profile;With Non-Stress Testing Chronic hypertension affecting Overview 12/12/2023; H/o IOL at 35 5/7wk chronic hypertension with superimposed preeclampsia ( 5-24) 07/25/2024 patient was noted to have high blood pressure in doctor's office and sent to the emergency room with severe range blood pressures. Was not treated with medication. Can start labetalol 100 mg twice daily and increase as tolerated. 2+ protein on clean-catch on urinalysis. Has collection kit for 24-hour urine. Preeclampsia labs normal except for elevated uric acid. 10/12/2024 patient states blood pressures are sometimes too low on labetalol 100 mg twice daily. [facility] growth ultrasounds at 28 and 32 weeks. Consider weekly biophysical profile post 32 weeks. Relevant Medications labetalol (NORMODYNE) 100 MG tablet NIFEdipine (PROCARDIA) 10 MG capsule Overview 23 yo IOL at 35 5/7wk superim preeclampsia ( 5--24) Dates by 8 w 2 d u/s. Mat21 09/14/24 low risk;c/w male. 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 07/27/24 baseline LDH and UA elevated. >UA 6.5 11/09/2024 anomaly scan at [facility] Worsening of iron deficiency anemia. Hematocrit 27.8%. 1 hour glucose screen was borderline at 132. Should repeat at next visit. Relevant Orders POC Urinalysis Dipstick (Completed) US Biophysical Profile;With Non-Stress Testing Proteinuria affecting , antepartum Overview 2+ protein on clean-catch on urinalysis. Has collection kit for 24-hour urine. Preeclampsia labs normal except for elevated uric acid. Proteinuria has worsened since last December; 619 mg/ 24 hr. PDC appointment at 20 weeks. Nephrology appointment 10/20/2024 Urinalysis 11/23/2024 was negative protein. Hematology and Neoplasia Iron deficiency anemia secondary to inadequate dietary iron intake Overview Worsening of iron deficiency anemia. Hematocrit 27.8%. Rx iron sulfate 325 mg daily. 1 hour glucose screen was borderline at 132. Should repeat at next visit. Had severe iron deficiency anemia last . Repeat iron profile and ferritin. Try Accrufer 30 mg twice daily. Relevant Medications ferrous sulfate 325 (65 FE) MG tablet Ferric Maltol (ACCRUFeR) 30 MG capsule Multi-system (Lupus, Sarcoid...) Autoimmune disorder Overview Lab workup by nephrology October 2024 with positive SHANTI and elevated C3 and normal C4. History of pustular psoriasis. Other Visit Diagnoses Essential hypertension Relevant Orders US Biophysical Profile;With Non-Stress Testing NST (non-stress test) nonreactive Relevant Orders US Biophysical Profile;With Non-Stress Testing at 32w4d status reassuring. 28 week labs reviewed. Activity and Exercise discussed. movement/PTL or Labor precautions Patient is on vitamins Discussed/encouraged Flu vaccination Reviewed Pre-eclampsia signs/symptoms Return in about 3 days (around 02/06/2025). Sandy Ruelas APRN 02/03/2025 documented in this encounter Plan of Treatment Upcoming Encounters Date Type Department Care Team (Late st Contact Info) Description 04/17/2025 1:40 PM EDT Visit [facility]YN [address] [place] [address] Aydin Crowe MD [address] [place] [address] documented as of this encounter Procedures Procedure Name Priority Date/Time Associated Diagnosis Comments POCT URINALYSIS DIPSTICK, MANUAL Routine 02/03/2025 3:10 PM EDT 32 weeks gestation of SCANNED - PROCEDURE 02/03/2025 documented in this encounter Results * US Biophysical Profile;With Non-Stress Testing (02/03/2025 3:47 PM EDT) Anatomical Region Laterality Modality Body Ultrasound 02/03/2025 4:30 PM EDT Narrative 02/06/2025 12:12 PM EDT PAT NAME: LISA RILEY MED REC#: [id number] DA: 2000 PAT GEND: F PAT TYPE: O EXAM JAYSON: [id number] REF PHYS SANDY RUELAS Roof Bolting Coal Miner Comments BPP 03/17 observed today. Indication ======== Nonreactive NST, HTN Comparison Studies There are no relevant prior studies to which this study is being compared Method ======= Voluson E6, Transabdominal ultrasound examination. View: Sufficient ========= Schwarz . Number of fetuses: 1 Dating ====== Cycle: irregular cycle Method of dating: based on stated CONG GA by prior assessment 32 w + 4 d CONG by prior assessment: 03/27/2025 Previous Ultrasound on: 07/25/2024 Type of prior assessment: GS mean Previous dating: based on stated CONG, selected on 01/11/2025 Agreed CONG of previous datin03/27/2025 Assigned: based on stated CONG, selected on 02/03/2025 Assigned GA 32 w + 4 d Assigned CONG: 03/27/2025 length 280 d General Evaluation Cardiac activity present. FHR 159 bpm. movements visualized. Presentation cephalic. Placenta Placental site: posterior. Umbilical cord Cord vessels: 3 vessel cord. Amniotic Fluid Assessment Amount of AF: normal MVP 4.4 cm. ELIZABETH 12.5 cm. Q1 3.4 cm, Q2 1.8 cm, Q3 4.4 cm, Q4 3.1 cm Biophysical Profile 2: breathing movements 2: Gross body movements 2: tone 2: Amniotic fluid volume NST: non-reactive 03/19 Biophysical profile score Anatomy Gender: male. Impression Normal BPP Recommendation Continue the routine schedule of testing for the condition being monitored. Coding ======= Please attribute NST to Sandy Ruelas APRN [employer] Coal Miner: Jolene Mc RDMS Physician: Aydin Crowe MD Electronically signed by: Aydin Crowe MD at: 12:12 Procedure Note Aydin Crowe MD - 02/06/2025 PAT NAME: LISA RILEY MED REC#: [id number] DA: 2000 PAT GEND: F PAT TYPE: O EXAM JAYSON: [id number] REF PHYS SANDY RUELAS [employer] Miner Comments BPP 03/17 observed today. Indication ======== Nonreactive NST, HTN Comparison Studies There are no relevant prior studies to which this study is beingcompared Method ======= Voluson E6, Transabdominal ultrasound examination. View: Sufficient ========= Schwarz . Number of fetuses: 1 Dating ====== Cycle:irregular cycle Method of dating:based on stated CONG GA by prior [id number] w + 4 d CONG by prior assessment:03/27/2025 Previous Ultrasound on:07/25/2024 Type of prior assessment:GS mean Previous dating:based on stated CONG, selected on 01/11/2025 Agreed CONG of previous datin03/27/2025 Assigned:based on stated CONG, selected on 02/03/2025 Assigned GA32 w + 4 d Assigned CONG:03/27/2025 [id number] d General Evaluation Cardiac activity present. FHR 159 bpm. movements visualized. Presentation cephalic. Placenta Placental site: posterior. Umbilical cord Cord vessels: 3 vessel cord. Amniotic Fluid Assessment Amount of AF: normal MVP 4.4 cm. ELIZABETH 12.5 cm. Q1 3.4 cm, Q2 1.8 cm, Q3 4.4 cm, Q4 3.1 cm Biophysical Profile 2: breathing movements 2: Gross body movements 2: tone 2: Amniotic fluid volume NST: non-reactive 03/19 Biophysical profile score Anatomy Gender: male. Impression Normal BPP Recommendation Continue the routine schedule of testing for the condition beingmonitored. Coding ======= Please attribute NST to Sandy Ruelas APRN [employer] Miner: Jolene Mc RDMS Physician: Aydin Crowe MD Electronically signed by: Aydin Crowe MD at: 12:12 us aSndy Ruelas APRN [facility] US ORDERABLES Final Resul t * (ABNORMAL) POC Urinalysis Dipstick (02/03/2025 3:10 PM EDT) Glucose, UA Negative Negative mg/dL [facility] Protein, POC Trace(A) Negative mg/dL [facility] Urine 02/03/2025 3:10 PM EDT us Sandy Ruelas APRN POINT OF CARE TEST ORDERABLES Final Result [facility]
[address] [place] [address], [place] [phone] * Procedure Scanned (02/03/2025) Sandy Ruelas MATT PROCEDURE/MINOR SURGICAL ORDE SABRA Final Result documented in this encounter Visit Diagnoses Diagnosis History of pre-eclampsia in prior , currently - Primary with other poor obstetric history 32 weeks gestation of Proteinuria affecting , antepartum Autoimmune disorder Autoimmune disease, not elsewhere classified Iron deficiency anemia secondary to inadequate dietary iron intake Essential hypertension Unspecified essential hypertension NST (non-stress test) nonreactive Abnormal findings on screening Chronic hypertension affecting Morbid obesity with BMI of 45.0-49.9, adult History of pre-eclampsia in prior , currently with other poor obstetric history 32 weeks gestation of Essential hypertension Unspecified essential hypertension NST (non-stress test) nonreactive Abnormal findings on screening documented in this encounter Care Teams Design Assembler Relationship Specialty Start Date End Date Jefe Schwartz MD [facility] [address] [facility] [address] PCP - General Adolescent Medicine 12/14/23 documented as of this encounter
--- OUTSIDE RECORDS SUMMARY | 2025-02-03 15:30 | XMS_ITS | Encounter Summary ---
Author Organization [facility] Address [address] [place] [address] Care Team Providers Care Clinical Social Worker Name Role Phone Jefe Schwartz MD Primary Care Provider [phone] Reason for Visit * Diagnostic Imaging (Emergency) - Closed Specialty Diagnoses / Procedures Referred By Contact Referred To Contact Obstetrics and Gynecology Diagnoses History of pre-eclampsia in prior , currently 32 weeks gestation of Essential hypertension NST (non-stress test) nonreactive Procedures US Biophysical Profile;With Non-Stress Testing Rosie Ruelas, RELIEF CHARGE NURSE [address] [address] Phone: tel: fax: [facility] OBGYN [address] [address] Phone: tel: fax: Referral ID Status Reason Start Date Expiration Date Visits Re quested Visits Authorized [id number] Closed 02/03/2025 05/05/2026 1 1 Encounter Details Date Type Department Care Team (Latest Contact Info) Description 02/03/2025 3:30 PM EDT Ancillary Procedure [facility] OBGYN [address] [phone] History of pre-eclampsia in prior , currently ; 32 weeks gestation of ; Essential hypertension; NST (non-stress test) nonreactive Social History Tobacco Use Types Packs/Day Years Used Date Smoking Tobacco: Former Cigarettes Q uit: 01/2024 Smokeless Tobacco: Never Comments:Vape. Alcohol Use Standard Drinks/Week Comments Never 0 (1 standard drink = 0.6 oz pur e alcohol) [facility] Utilities Answer Date Recorded In the past 12 months has th e electric, gas, oil, or water company threatened to shut off services in your [...] and heating? Not hard at all 01/23/2025 [facility] - Occupational [...] things needed for daily living? No 01/23/2025 [place] Depression Scale Answer Date Recorded Retired [place] Depression Score 11 02/23/2024 Retired EPD Scale: [...] none 01/23/2025 Family and Community Support Answer Geri e Recorded If for any reason you [...] GED or equivalent No 01/23/2025 Preferred Language Tristanian 01/23/2025 PHQ-2 Answer Date Recorded Patient Health [...] PM EDT documented as of this encounter Plan of Treatment Upcoming Encounters Date Type Department Care Team (Late st Contact Info) Description 04/17/2025 1:40 PM EDT Visit [facility] OBGYN [address] [place] [address] Aydin Crowe MD [address] [place] [address] documented as of this encounter Procedures Procedure Name Priority Date/Time Associated Diagnosis Comments US BIOPHYSICAL PROFILE;WITH NON-STRESS TESTING STAT 02/03/2025 3:47 PM EDT History of pre-eclampsia in prior , currently 32 weeks gestation of Essential hypertension NST (non-stress test) nonreactive documented in this encounter Results * US Biophysical Profile;With Non-Stress Testing (02/03/2025 3:47 PM EDT) Anatomical Region Laterality Modality Body Ultrasound 02/03/2025 4:30 PM EDT Narrative 02/06/2025 12:12 PM EDT PAT NAME: SARBJIT RILEY MED REC#: [id number] DA: 2000 PAT GEND: F PAT TYPE: O EXAM GERI: [id number] REF PHYS ROSIE RUELAS Picking Table Worker Comments BPP 03/17 observed today. Indication ======== [...] monitored. Coding ======= Please attribute NST to Rosie Ruelas APRN Picking Table Worker: Jolene Mc RDMS Physician: Aydin Crowe MD Electronically signed by: Aydin Crowe MD at: 12:12 Procedure Note Aydin Crowe MD - 02/06/2025 PAT NAME: SARBJIT RILEY [facility] REC#: [id number] DA: [id number] PAT GEND: F PAT TYPE: O EXAM GERI: [id number] REF PHYS ROSIE RUELAS Picking Table Worker Comments BPP 03/17 observed today. Indication ======== Nonreactive NST, HTN Comparison Studies There are no relevant prior studies to which this study is beingcompared Method ======= Voluson E6, Transabdominal ultrasound examination. View: Sufficient ========= Schwarz . Number of fetuses: 1 Dating ====== Cycle:irregular cycle Method of dating:based on stated CONG GA by prior [id number] w + 4 d CONG by prior assessment:03/27/2025 Previous Ultrasound on:07/25/2024 Type of prior assessment:GS mean Previous dating:based on stated CONG, selected on 01/11/2025 Agreed CONG of previous datin03/27/2025 Assigned:based on stated CONG, selected on 02/03/2025 Assigned GA32 w + 4 d Assigned CONG:03/27/2025 [email or web address] d General Evaluation Cardiac activity present. FHR [...] beingmonitored. Coding ======= Please attribute NST to Rosie Ruelas APRN Picking Table Worker: Jolene Mc RDMS Physician: Aydin Crowe MD Electronically signed by: Aydin Crowe MD at: 12:12 us Rosie Ruelas APRN IMG US ORDERABLES Final Resul t documented in this encounter Visit Diagnoses Diagnosis History of pre-eclampsia in prior , currently with other poor obstetric history 32 weeks gestation of Essential hypertension Unspecified essential hypertension NST (non-stress test) nonreactive Abnormal findings on screening documented in this encounter Care Teams Clinical Social Worker Relationship Specialty Start Date End Date Jefe Schwartz MD [facility] [place] [address] [place] [id number] PCP - General Adolescent Medicine 12/14/23 documented as of this encounter
--- OUTSIDE RECORDS SUMMARY | 2025-02-06 13:10 | XMS_ITS | Encounter Summary ---
Author Organization [facility] Address [address] [place] [address] Care Team Providers Care Registered Client Associate Name Role Phone Jefe Schwartz MD Primary Care Provider [phone] Reason for Visit * Reason Comments Routine Visit Non-stress Test 33w0d Encounter Details Date Type Department Care Team (Late st Contact Info) Description 02/06/2025 1:10 PM EDT Routine [facility] OBGYN [address] [phone] Aydin Crowe MD [address] [place] [address] [place]: 33w0d Social History Tobacco Use Types Packs/Day Years Used Date Smoking Tobacco: Former Cigarettes Q uit: 01/2024 Smokeless Tobacco: Never Comments:Vape. Alcohol Use Standard Drinks/Week Comments Never 0 (1 standard drink = 0.6 oz pur e alcohol) [facility] Utilities Answer Date Recorded In the past 12 months has [employer], gas, oil, or water [employer] threatened to shut off services in your [...] and heating? Not hard at all 01/23/2025 [facility] Occupat ional [facility] - Occupational Stress Questionnaire Answer Date [...] things needed for daily living? No 01/23/2025 [place] Depression Scale Answer Date Recorded Retired [place] Depression Score 11 02/23/2024 Retired EPD Scale: [...] GED or equivalent No 01/23/2025 Preferred Language Djiboutian 01/23/2025 PHQ-2 Answer Date Recorded Patient Health [...] 120s/80s. Patient Active Problem List Diagnosis WPW (Efyjl-Yjnrxdslc-Qkbok syndrome) SVT (supraventricular tachycardia) Herpes simplex type [...] Info) Description 04/17/2025 1:40 PM EDT Visit [facility] OBGYN [address] [facility] [address] [place] [phone] Aydin Crowe MD [address] [facility] [address] [place] [address] documented as of this encounter Procedures Procedure [...] - 02/07/2025 3:35 AM EDT Performed at: [address] [place] [id number] Accounts Payable Or Receivable Clerk: Fabian Cabrera MD, Phone: [phone] us Aydin Crowe MD LAB BLOOD ORDERABLES Final Resu lt [facility]) [address] [place] [address], [facility] [address] [place] [address], [place] [phone] * POC Urinalysis Dipstick (02/06/2025 2:04 PM EDT) Glucose, UA Negative Negative mg/dL [facility] Protein, POC Negative Negative mg/dL [facility] Urine 02/06/2025 2:04 PM EDT us Aydin Crowe MD POINT OF CARE TEST ORDERABLES F inal Result [facility]
[address] [place] [address], * Procedure Scanned (02/06/2025) us Aydin Crowe MD PROCEDURE/MINOR SURGICAL ORDERA BLES Final Result documented in this encounter Visit Diagnoses Diagnosis Proteinuria affecting , antepartum- Primary care, antepartum, unspecified Chronic hypertension affecting labor in third trimester without delivery documented in this encounter Care Teams Registered Client Associate Relationship Specialty Start Date End Date Jefe Schwartz MD [address] [facility] [address] [facility] [address] [place] [address] PCP - General Adolescent Medicine 12/14/23 documented as of this encounter
--- OUTSIDE RECORDS SUMMARY | 2025-02-09 11:15 | XMS_ITS | Encounter Summary ---
Author Organization [facility] Address [address] [place] [address] Care Team Providers Care Hammer Mill Operator Name Role Phone Jefe Schwartz MD Primary Care Provider [phone] Reason for Visit * Reason Comments Routine Visit Non-stress Test Encounter Details Date Type Department Care Team (Late st Contact Info) Description 02/09/2025 11:15 AM EDT Routine [facility] [address] [place] [phone] Shania Ledezma, TIMBER CUTTER [address] [facility] [address] [place] [address] GA: 33w3d Social History Tobacco Use Types Packs/Day Years Used Date Smoking Tobacco: Former Cigarettes Q uit: 01/2024 Smokeless Tobacco: Never Comments:Vape. Alcohol Use Standard Drinks/Week Comments Never 0 (1 standard drink = 0.6 oz pur e alcohol) [facility] Utilities Answer Date Recorded In the past 12 months has [employer], gas, oil, or water [employer] threatened to shut off services in your [...] and heating? Not hard at all 01/23/2025 [facility] Health - Occupational Stress Questionnaire Answer [...] things needed for daily living? No 01/23/2025 [place] Depression Scale Answer Date Recorded Retired [place] Depression Score 11 02/23/2024 Retired EPD Scale: [...] GED or equivalent No 01/23/2025 Preferred Language Dominican 01/23/2025 PHQ-2 Answer Date Recorded Patient Health [...] below. Patient Active Problem List Diagnosis WPW (Ljvtm-Rxvvwnvsl-Bnxgz syndrome) SVT (supraventricular tachycardia) Herpes simplex type [...] information as entered above. Shania Kvng Ledezma, TIMBER CUTTER BP 114/68 Pulse 112 Temp 98.6 ??F [...] nursing note reviewed. Exam conducted with a director water and waste services present. Urine Glucose Read-only: Negative Urine Protein Read-only: (!) 1+ Assessment and Plan Problem List Items Addressed This Visit Cardiac and Vasculature WPW (Doqra-Remypmtvu-Hptii syndrome) Overview Dr. Fernando in [place] Echo & 2 week holter monitor in [...] [facility] [address] [phone] Aydin Crowe MD [address] [place] [phone] documented as of this encounter Procedures Procedure [...] 12:3 9 PM EDT 02/09/2025 Narrative [facility] (AMBULATORY) - 02/11/2025 4:36 PM EDT Performed at: [address] [place] [id number] Professor/Nurse Anesthetist: Alice Soriano MD, Phone: [phone] us Shania Ledezma APRN LAB BLOOD ORDERABLES Final R esult [facility] [employer] (AMBULATORY) [address] [place] [address], [place] [phone] [facility] [address] [place] [address], [place] [phone] * (ABNORMAL) AlP+ALT+AST+Creat+LD+TBili+.. (02/09/2025 12:39 PM EDT) [...] Blood 02/09/2025 12:3 9 PM EDT 02/09/2025 [facility] ([facility]) - 02/10/2025 3:35 AM EDT Performed at: 01 - [facility] [address] [facility], [place], [place] [id number] Professor/Nurse Anesthetist: Edgar Mccartney PhD, Phone: [phone] Shania Ledezma APRN LAB BLOOD ORDERABLES Final R esult [facility] ([facility]) [address] [place] [address], [place] [phone] [facility] [address] [place] [address], [place] [phone] * (ABNORMAL) POC Urinalysis Dipstick (02/09/2025 12:10 PM EDT) Color Dark Yellow Yellow, Straw, Dark Yellow, Lena [facility] Clarity, UA Clear Clear [facility] Glucose, UA Negative Negative mg/dL [facility] Bilirubin Negative Negative [facility] Ketones, UA Negative Negative [facility] Specific [place] 1.015 1.005 - 1.030 [facility] Blood, UA Negative Negative [facility] pH, Urine 6.0 5.0 - 8.0 [facility] Protein, POC 1+(A) Negative mg/dL [facility] Urobilinogen, UA 0.2 E.U./dL Normal, 0.2 E.U./dL [facility] Leukocytes Negative Negative [facility] Nitrite, UA Negative Negative [facility] Urine 02/09/2025 12:1 0 PM EDT us Shania Ledezma APRN POINT OF CARE TEST ORDERABLE S Final Result [facility]
[address] [place] [address], * Procedure Scanned (02/09/2025) [facility] Onbase PROCEDURE/MINOR SURGICAL ORDE RABLES Final Result [...] Comment:Swab Release to denice e Narrative [facility] (AMBULATORY) - 02/12/2025 5:08 PM EDT Test(s) 738853- Atopobium vaginae; 223726- BVAB 2; 476785- Megasphaera 1 was developed and its performance characteristics determined by [facility]. It has not been cleared or approved by the Food and Drug Administration. Performed at: 01 - [address] [id number] Professor/Nurse Anesthetist: Ina Couch MD, Phone: [phone] Shania Ledezma APRN MICROBIOLOGY - GENERAL ORDER CATARINO Final Result [facility] [address] [place] [address], [facility] [address] [place] [address], * Urine Culture - Urine, Urine, Clean Catch (02/09/2025 12:00 AM EDT) Urine Culture Final report [facility] Result 1 Comment [facility] Comment: Mixed urogenital elmer 10,000-25,000 colony forming units per mL Urine Urine specimen obtained by clean catch procedure / Unknown 02/09/2025 02/09/2025 Comment:Urine Release to petey negron Tatyana [facility] (AMBULATORY) - 02/11/2025 3:35 AM EDT Performed at: - [address] [id number] Professor/Nurse Anesthetist: Edgar Mccartney PhD, Phone: [phone] us Shania Ledezma APRN MICROBIOLOGY - GENERAL ORDER CATARINO Final Result [facility] (AMBULATORY) [address] [place] [address], [place] [phone] [facility] [address] [place] [address], documented in this encounter Visit Diagnoses Diagnosis care, antepartum, unspecified - Primary Nonintractable headache, unspecified chronicity pattern, unspecified headache type Blurry vision Other specified visual disturbances Shortness of breath due to Itching Unspecified pruritic disorder Proteinuria affecting , antepartum Chronic hypertension affecting WPW (Naidw-Dwfesmrma-Cnrsr syndrome) Anomalous atrioventricular excitation Must strain to pass urine documented in this encounter Care Teams Hammer Mill Operator Relationship Specialty Start Date End Date Jefe Schwartz MD [address] [place] [address] [address] [facility] [place] [address] PCP - General Adolescent Medicine 12/14/23 documented as of this encounter
--- OUTSIDE RECORDS SUMMARY | 2025-02-13 09:30 | XMS_ITS | Encounter Summary ---
Author Organization [facility] Address [address] [place] [id number] Care Team Providers Care Health Care Attorney Name Role Phone Jefe Schwartz MD Primary Care Provider [phone] Reason for Referral * Diagnostic Imaging (Routine) - Closed Specialty Diagnoses / Procedures Referred By Contact Referred To Contact Obstetrics and Gynecology Diagnoses Poor growth affecting management of mother in third trimester, single or unspecified fetus Procedures [facility] Aydin Crowe MD [address] [facility] [address] [place] [address] Phone: tel: fax: [facility] [address] [place] [address] [place] [phone] Phone: tel: fax: Referral ID Status Reason Start Date Expiration Date Visits Re quested Visits Authorized [id number] Closed 02/13/2025 05/15/2026 1 1 Reason for Visit * Reason Comments Routine Visit Non-stress Test Encounter Details Date Type Department Care Team (Late st Contact Info) Description 02/13/2025 9:30 AM EDT Routine [facility] OBGYN [address] [facility] [address] [place] [phone] Aydin Crowe MD [address] [facility] [address] [place], [place] [id number] GA: 34w0d Social History Tobacco Use Types Packs/Day Years Used Date Smoking Tobacco: Former Cigarettes Q uit: 01/2024 Smokeless Tobacco: Never Comments:Vape. Alcohol Use Standard Drinks/Week Comments Never 0 (1 standard drink = 0.6 oz pur e alcohol) [facility] Utilities Answer Date Recorded In the [...] and heating? Not hard at all 01/23/2025 [facility] - Occupational Stress [...] things needed for daily living? No 01/23/2025 Livingston Depression Scale Answer Date Recorded Retired Livingston Depression Score 11 02/23/2024 Retired EPD Scale: [...] GED or equivalent No 01/23/2025 Preferred Language Irish 01/23/2025 PHQ-2 Answer Date Recorded Patient Health [...] Sign Reading Time Taken Comments Blood Pressure 134/78 02/13/2025 10:00 AM EDT Pulse - - Temperature - - Respiratory Rate - - Oxygen Saturation - - Inhaled Oxygen Concentration - - Weight 122 kg (268 lb 9.6 oz) 02/13/2025 10:00 A M EDT Height - - Body Mass Index 44.7 01/23/2025 10:15 PM EDT documented in this encounter Progress Notes * Aydin Crowe MD - 02/13/2025 9:30 AM EDT Images from the original note were not included. OB FOLLOW UP CC- Here for care of - contractions Lisa Riley is a 24 y.o. 34w0d patient being seen today for her obstetrical follow up visit. Patient reports 7-8min contraction frequency, lasting over the span of 30 minutes every 2 hours, since Thursday. Also reporting once daily headaches (Tylenol no relief; denies vision changes, but admits RUQ pains that began on Thursday and lasted through Thursday), daily heartburn/reflux (with each meal; Tums helps some), trace BLE edema today (+2 edema over the weekend), and increased pelvic pressure. Home B/Ps running 120- 130s/80s. Patient dropped off her 24hr urine sample to lab today. Patient plans to begin Metrogel this evening for BV+ on 02/09. She feels that her contractions are worsening, and these are not the same contractions that broughther to the hospital earlier in the for threatened labor. She has received 4 dosesof corticosteroids. Had 2 episodes of heat exhaustion last week. Her care is complicated by (and status): see below. Patient Active Problem List Diagnosis WPW (Mmoca-Oyfegkpdb-Vuuhn syndrome) SVT (supraventricular tachycardia) Herpes simplex type 2 (HSV-2) infection affecting , antepartum Obesity in , antepartum Cigarette smoker History of pre-eclampsia in prior , currently Chronic hypertension affecting Proteinuria affecting , antepartum Autoimmune disorder Iron deficiency anemia secondary to inadequate dietary iron intake labor in third trimester without delivery Poor growth affecting management of mother in third trimester Flu Status: not currently flu season Ultrasound Today: No Non Stress Test: Yes, 20+ minutes non-stress test: NST: Reactive indication: Hypertension (chronic) ROS - Patient Denies: Loss of Fluid, Vaginal Spotting, Vision Changes, Nausea , Vomiting , and skin itching Movement: normal Other than what is documented in [...] as entered above. Aydin Crowe MD BP 134/78 Wt 122 kg (268 lb 9.6 oz) LMP 05/24/2024 BMI 44.70 kg/m?? EXAM: Vitals BP: 134/78 Weight: 122 kg (268 lb 9.6 oz) Heart Rate: NST+ Dilation/Effacement/Station Dilation: 3-4 Effacement (%): 50 Station: -2 Soft, anterior Urine Glucose Read-only: Negative Urine Protein Read-only: Negative Assessment and Plan Problem List Items Addressed This Visit Herpes simplex type 2 (HSV-2) infection affecting , antepartum Overview Pending culture results from Dr. Cordero [facility]. 10/11/2023 HSV 2 IgG positive; consistent with recurrent HSV2. Rx valtrex For suppression 500 mg daily. Relevant Medications valACYclovir (VALTREX) 500 MG tablet Chronic hypertension affecting Overview 12/12/2023; H/o IOL [...] Relevant Medications labetalol (NORMODYNE) 100 MG tablet Overview 23 yo IOL at 35 5/7wk superim preeclampsia ( 5-4-24) Dates by 8 w 2 d u/s. Mat21 09/14/24 low risk;c/w male. 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 07/27/24 baseline LDH and UA elevated. >UA 6.5 11/09/2024 anomaly scan at [facility] Worsening of iron deficiency anemia. Hematocrit 27.8%. 1 hour glucose screen was borderline at 132. Should repeat at next visit. Relevant Orders POC Protein, Urine, Qualitative, Dipstick (Completed) POC Glucose, Urine, Qualitative, Dipstick (Completed) Poor growth affecting management of mother in third trimester Relevant Orders [facility] Other Visit Diagnoses care, third trimester - Primary Relevant Orders POC Protein, Urine, Qualitative, Dipstick (Completed) POC Glucose, Urine, Qualitative, Dipstick (Completed) Group B Streptococcus Culture - , Vaginal/Rectum Chlamydia trachomatis, Neisseria gonorrhoeae, PCR w/ confirmation - Swab, Vagina Bacterial vaginosis Relevant Medications metroNIDAZOLE (FLAGYL) 500 MG tablet Premature cervical dilation in third trimester at 34w0d status reassuring. Activity and Exercise discussed. movement/PTL or Labor precautions GBS next visit Reviewed advanced cervical dilation today. Transition from vaginal MetroGel to oral Flagyl given the dilation. Reviewed that at this gestation, and the fact that she has had 4 dose of steroids, thereis nothing that we would do to stop or encourage labor at this point. I think that her multiple episodes of heat exhaustion over the past week certainly contributed to this issue. Recommend taking iteasy with a low threshold to present to the hospital for evaluation. GBS and gonorrhea/chlamydia performed today. Return in about 3 days (around 02/16/2025) for NST. A portion of the care provided today was to address contractions and bacterial vaginosis, which is outside the scope of routine care. Aydin Crowe MD 02/13/2025 documented in this encounter Plan of Treatment Upcoming Encounters Date Type Department Care Team (Late st Contact Info) Description 04/17/2025 1:40 PM EDT Visit [facility] OBGYN [address] [facility] [address] [place] [address] Aydin Crowe MD [address] [facility] [address] [place] [address] documented as of this encounter Procedures Procedure Name Priority Date/Time Associated Diagnosis Comments POCT PROTEIN, URINE, QUALITATIVE, DIPSTICK Routine 02/13/2025 10:16 AM EDT care, third trimester 34 weeks gestation of POCT GLUCOSE, URINE, QUALITATIVE, DIPSTICK Routine 02/13/2025 10:16 AM EDT care, third trimester 34 weeks gestation of SCANNED - PROCEDURE 02/13/2025 CHLAMYDIA TRACHOMATIS, NEISSERIA GONORRHOEAE, PCR W/ CONFIRMATION Routine 02/13/2025 12:00 AM EDT care, third trimester documented in this encounter Results * [facility] (02/23/2025 2:44 PM EDT) Anatomical Region Laterality Modality Ultrasound 02/23/2025 2:19 PM EDT Narrative 02/23/2025 2:48 PM EDT PAT NAME: LISA RILEY [facility] REC#: [id number] DA: 2000 PAT GEND: F PAT TYPE: O EXAM JAYSON: [id number] REF PHYS AYDIN CROWE Comparison Studies The findings of this study are compared to the prior ultrasound study dated 01/25/25. Patient Status Outpatient Indication ======== contractions. CHTN. Chronic proteinuria. Maternal Ghosh Parkinson White. Hx PTD 35 wk - preeclampsia. Morbid obesity BMI 47 Maternal Assessment Height 162 cm Weight 124 kg Weight (lb) 273 lb BMI 47.19 kg/m Method ======= Transabdominal ultrasound examination. View: Limited by patient body habitus ========= Schwarz . Number of fetuses: 1 Dating ====== Cycle: irregular cycle GA by prior assessment 35 w + 3 d CONG by prior assessment: 03/27/2025 Previous Ultrasound on: 07/25/2024 Type of prior assessment: GS mean Ultrasound examination on: 02/23/2025 GA by U/S based upon: AC, BPD, Femur, HC GA by U/S 35 w + 0 d CONG by U/S: 03/30/2025 Method of dating: Restore dating from previous exam Previous dating: based on stated CONG, selected on 02/03/2025 Agreed CONG of previous datin03/27/2025 Assigned: based on stated CONG, selected on 02/03/2025 Assigned GA 35 w + 3 d Assigned CONG: 03/27/2025 length 280 d Biometry Standard BPD 85.5 mm 34w 3d 27% Hadlock OFD 110.7 mm 36w 6d 79% Van HC 315.5 mm 35w 3d 18% Hadlock Cerebellum tr 45.4 mm 34w 6d 27% Hill AC 313.1 mm 35w 2d 53% Hadlock Femur 67.2 mm 34w 4d 22% Hadlock Humerus 59.2 mm 34w 2d 40% Van HC / AC 1.01 EFW 2,567 g 34w 6d 37% Hadlock EFW (lb) 5 lb EFW (oz) 11 oz EFW by: Hadlock ([id number]) Extended Cav. septi pel. tr 5.9 mm CM 6.7 mm 26% Nicolaides Head / Face / Neck Cephalic index 0.77 14% Nicolaides Extremities / Bony Struc FL / BPD 0.79 FL / HC 0.21 FL / AC 0.21 Other Structures FHR 177 bpm General Evaluation Cardiac activity present. FHR 177 bpm. movements present. Presentation cephalic. Placenta Placental site: posterior, fundal. Amniotic fluid Amount of AF: normal. MVP 4.8 cm. ELIZABETH 13.6 cm. Q1 3.2 cm, Q2 4.8 cm, Q3 3.4 cm, Q4 2.3 cm. Anatomy Cranium: Normal Cavum septi pellucidi: Normal Cerebellum: Normal Cisterna magna: Normal 4-chamber view: Appears normal RVOT view: Normal LVOT view: Normal Heart / Thorax 3-vessel view: Normal 6-peultr-ylnwbuc view: normal Stomach: Appears normal Kidneys: Appears normal Bladder: Appears normal Gender: male Wants to know gender: yes Doppler Arterial Umbilical A PI 0.82 47% Timbo Umbilical A RI 0.58 52% Timbo Umbilical A PS 51.17 cm/s 58% Ebbing Umbilical A ED 20.82 cm/s Umbilical A TAmax 35.99 cm/s 64% Ebbing Umbilical A MD 18.99 cm/s Umbilical A S / D 2.40 47% Timbo Umbilical A HR 167 bpm Biophysical Profile 2: breathing movements 2: Gross body movements 2: tone 2: Amniotic fluid volume 03/17 Biophysical profile score Consultation / Office Visit Office note to follow Impression Today's exam reveals a SIUP in cephalic presentation with biometry consistent with dates. Limited anatomic survey appears normal. The ELIZABETH, UA dopplers and BPP are normal. Recommendation Follow-up as clinically indicated. Recommend 37 week delivery. Coding ======= Description: 80153-37 Follow Up Ultrasound Description: 47416-69 BPP without NST Description: 90634-53 Doppler Umbilical Artery Performance Architect: Destini Hall RDMS Physician: Medhat De Anda MD, FACOG Electronically signed by: Medhat De Anda MD, FACOG at: 14:48 Procedure Note Medhat De Anda MD - 02/23/2025 PAT NAME: LISA RLIEY [facility] REC#: [id number] DA: 2000 PAT GEND: F PAT TYPE: O EXAM JAYSON: [id number] REF PHYS AYDIN CROWE Comparison Studies The findings of this study are compared to the prior ultrasound studydated 01/25/25. Patient Status Outpatient Indication ======== contractions. CHTN. Chronic proteinuria. Maternal Ghosh ParkinsonWhite. Hx PTD 35 wk - preeclampsia. Morbid obesity BMI 47 Maternal Assessment Wmihrs467 cm Worliz876 kg Weight (lb)273 lb BMI47.19 kg/m Method ======= Transabdominal ultrasound examination. View: Limited by patient bodyhabitus ========= Schwarz . Number of fetuses: 1 Dating ====== Cycle:irregular cycle GA by prior [id number] w + 3 d CONG by prior assessment:03/27/2025 Previous Ultrasound on:07/25/2024 Type of prior assessment:GS mean Ultrasound examination on:02/23/2025 GA by U/S based upon:AC, BPD, Femur, HC GA by U/S35 w + 0 d CONG by U/S:03/30/2025 Method of dating:Restore dating from previous exam Previous dating:based on stated CONG, selected on 02/03/2025 Agreed CONG of previous datin03/27/2025 Assigned:based on stated CONG, selected on 02/03/2025 Assigned GA35 w + 3 d Assigned CONG:03/27/2025 [id number] d Biometry Standard BPD85.5 mm 34w 3d 27% Hadlock JHE545.7 mm 36w 6d 79% Van HC315.5 mm 35w 3d 18% Hadlock Cerebellum tr45.4 mm 34w 6d 27% Hill AC313.1 mm 35w 2d 53% Hadlock Femur67.2 mm 34w 4d 22% Hadlock Dlijfem05.2 mm 34w 2d 40% Van HC / AC1.01 EFW2,567 g 34w 6d 37% Hadlock EFW (lb)5 lb EFW (oz)11 oz EFW by:Hadlock ([id number]) Extended Cav. septi pel. tr5.9 mm CM6.7 mm 26% Nicolaides Head / Face / Neck Cephalic index0.77 14% Nicolaides Extremities / Bony Struc FL / BPD0.79 FL / HC0.21 FL / AC0.21 Other Structures RMA277 bpm General Evaluation Cardiac activity present. FHR 177 bpm. movements present. Presentation cephalic. Placenta Placental site: posterior, fundal. Amniotic fluid Amount of AF: normal. MVP 4.8 cm. ELIZABETH 13.6 cm. Q1 3.2 cm,Q2 4.8 cm, Q3 3.4 cm, Q4 2.3 cm. Anatomy Cranium:Normal Cavum septi pellucidi:Normal Cerebellum:Normal Cisterna magna:Normal 4-chamber view:Appears normal RVOT view:Normal LVOT view:Normal Heart / Thorax 3-vessel view:Normal 2-eperys-aavuimz view:normal Stomach:Appears normal Kidneys:Appears normal Bladder:Appears normal Gender:male Wants to know gender:yes Doppler Arterial Umbilical A PI0.82 47% Timbo Umbilical A RI0.58 52% Timbo Umbilical A PS51.17 cm/s 58% Ebbing Umbilical A ED20.82 cm/s Umbilical A TAmax35.99 cm/s 64% Ebbing Umbilical A MD18.99 cm/s Umbilical A S / D2.40 47% Timbo Umbilical A HR167 bpm Biophysical Profile 2: breathing movements 2: Gross body movements 2: tone 2: Amniotic fluid volume 03/17 Biophysical profile score Consultation / Office Visit Office note to follow Impression Today's exam reveals a SIUP in cephalic presentation with biometryconsistent with dates. Limited anatomic survey appears normal. TheAFI, UA dopplers and BPP are normal. Recommendation Follow-up as clinically indicated. Recommend 37 week delivery. Coding ======= Description:50381-48 Follow Up Ultrasound Description:97380-19 BPP without NST Description:83462-50 Doppler Umbilical Artery Performance Architect: Destini Hall RDMS Physician: Medhat De Anda MD, FACOG Electronically signed by: Medhat De Anda MD, FACOG at: 14:48 us Aydin Crowe MD IMG US ORDERABLES Final Result * Group B Streptococcus Culture - Swab, Vaginal/Rectum (02/13/2025 6:55 PM EDT) Group B Strep Culture No Group B Streptococcus isolated SEAN 02/16/2025 10:43 AM EDT [facility] Swab Rectum and vagina, CS / Unknown Collection / Unknown 02/13/2025 6:55 PM EDT 02/13/2025 6:55 PM EDT us Aydin Crowe MD MICROBIOLOGY - GENERAL ORDERABL ES Final Result [facility]
[address] [place] [id number], [place] [phone] * POC Glucose, Urine, Qualitative, Dipstick (02/13/2025 10:16 AM EDT) Glucose, UA Negative Negative mg/dL [facility] Urine 02/13/2025 10:1 6 AM EDT us Aydin Crowe MD POINT OF CARE TEST ORDERABLES F inal Result Performing Organization Address [facility]/State/ZIP Co de Phone Number [facility]
[address] [place] [address], [place] [phone] * POC Protein, Urine, Qualitative, Dipstick (02/13/2025 10:16 AM EDT) Protein, POC Negative Negative mg/dL [facility] Lot Number 0 [facility] Expiration Date 0 [facility] Urine 02/13/2025 10:1 6 AM EDT us Aydin Crowe MD POINT OF CARE TEST ORDERABLES F inal Result [facility]
[address] [place] [address], [place] [phone] * Procedure Scanned (02/13/2025) us Aydin Crowe MD PROCEDURE/MINOR SURGICAL ORDERA BLES Final Result * Chlamydia trachomatis, Neisseria gonorrhoeae, PCR w/ confirmation - Swab, Vagina (02/13/2025 12:00 AM EDT) Chlamydia trachomatis, EARNESTINE Negative Negative [facility] Neisseria gonorrhoeae, EARNESTINE Negative Negative [facility] Swab Vaginal structure / Unknown 02/13/2025 02/13/2025 Comment:Swab Release to denice e Narrative [facility] - 02/14/2025 8:09 PM EDT Performed at: [address] [place] [id number] Position Clerk: Alice Soriano MD, Phone: [phone] us Aydin Crowe MD MICROBIOLOGY - GENERAL ORDERABL ES Final Result Performing Organization Address City/[facility]/ZIP Co de Phone Number [facility] [address] [place] [address], [place] [phone] [facility] [address] [place] [address], [place] [phone] documented in this encounter Visit Diagnoses Diagnosis care, third trimester- Primary 34 weeks gestation of Chronic hypertension affecting Poor growth affecting management of mother in third trimester, single or unspecified fetus Bacterial vaginosis Unspecified vaginitis and vulvovaginitis Herpes simplex type 2 (HSV-2) infection affecting , antepartum Premature cervical dilation in third trimester Poor growth affecting management of mother in third trimester, single or unspecified fetus documented in this encounter Care Teams Health Care Attorney Relationship Specialty Start Date End Date Jefe Schwartz MD [address] [facility] [address] [place] [address] PCP - General Adolescent Medicine 12/14/23 documented as of this encounter
--- OUTSIDE RECORDS SUMMARY | 2025-02-13 19:05 | XMS_ITS | Encounter Summary ---
[facility] Address [address] [place] [address] Care Team Providers Care Vocational Rehabilitation Supervisor Name Role Phone Jefe Schwartz MD Primary Care Provider [phone] Encounter Details Date Type Department Care Team (Late st Contact Info) Description 02/13/2025 7:05 PM EDT Lab LABORATORY [address] [place] [phone] care, third trimester Social History Tobacco Use Types Packs/Day Years Used Date Smoking Tobacco: Former Cigarettes Q uit: 01/2024 Smokeless Tobacco: Never Comments:Vape. Alcohol Use Standard Drinks/Week Comments Never 0 (1 standard drink = 0.6 oz pur e alcohol) [facility] Utilities Answer Date Recorded In the past 12 months has [employer] electric, gas, oil, or water company threatened [...] and heating? Not hard at all 02/18/2025 [facility] [place] of Occupat ional Health - Occupational Stress [...] things needed for daily living? No 02/18/2025 [place] Depression Scale Answer Date Recorded Retired [place] Depression Score 11 02/23/2024 Retired EPD Scale: [...] GED or equivalent No 02/18/2025 Preferred Language Bhutanese 02/18/2025 PHQ-2 Answer Date Recorded Patient Health [...] Info) Description 04/17/2025 1:40 PM EDT Visit [facility] OBGYN [address] [address] Aydin Crowe MD [address] [address] documented as of this encounter Procedures Procedure Name Priority Date/Time Associated Diagnosis Comments GROUP B STREPTOCOCCUS CULTURE Routine 02/13/2025 6:55 PM EDT care, third trimester documented in this encounter Results * Group B Streptococcus Culture - Swab, Vaginal/Rectum (02/13/2025 6:55 PM EDT) Group B Strep Culture No Group B Streptococcus isolated SEAN 02/16/2025 10:43 AM EDT [facility]ORAT[facility] Swab Rectum and vagina, CS / Unknown Collection / Unknown 02/13/2025 6:55 PM EDT 02/13/2025 6:55 PM EDT Aydin Crowe MD MICROBIOLOGY - GENERAL ORDERABL ES Final Result [facility]
[address] [place] [address], documented in this encounter Visit Diagnoses Diagnosis care, third trimester documented in this encounter Care Teams Vocational Rehabilitation Supervisor Relationship Specialty Start Date End Date Jefe Schwartz MD [facility] [address] [facility] [address] [place] [address] PCP - General Adolescent Medicine 12/14/23 documented as of this encounter
--- OUTSIDE RECORDS SUMMARY | 2025-02-16 14:15 | XMS_ITS | Encounter Summary ---
Author Organization [facility] Address [address] [place] [address] Care Team Providers Care Floor Tech Name Role Phone Jefe Schwartz MD Primary Care Provider [phone] Reason for Referral * OBGYN (Routine) - Authorized Specialty Diagnoses / Procedures Referred By Contact Referred To Contact Obstetrics and Gynecology Diagnoses care, third trimester 34 weeks gestation of Chronic hypertension affecting Procedures Nonstress Test Kartik Maurice APRN [address] [place] [address] Phone: tel: fax: [facility] [address] [address] Phone: tel: fax: Referral ID Status Reason Start Date Expiration Date V isits Requested Visits Authorized [id number] Authorized 02/16/2025 05/18/2026 1 1 Reason for Visit * Reason Comments Non-stress Test Routine Visit Encounter Details Date Type Department Care Team (Late st Contact Info) Description 02/16/2025 2:15 PM EDT Routine [facility] [address] [address] Kartik Maurice APRN [address] [place] [id number] [place]: [id number] Social History Tobacco Use Types Packs/Day Years Used Date Smoking Tobacco: Former Cigarettes Q uit: 01/2024 Smokeless Tobacco: Never Comments:Vape. Alcohol Use Standard Drinks/Week Comments Never 0 (1 standard drink = 0.6 oz pur e alcohol) [facility] Utilities Answer Date Recorded In the past 12 months has th e Punctil, gas, oil, or water [employer] threatened to shut off services in your [...] and heating? Not hard at all 01/23/2025 [facility] of Occupat ional Health - Occupational Stress [...] things needed for daily living? No 01/23/2025 [place] Depression Scale Answer Date Recorded Retired [place] Depression Score 11 02/23/2024 Retired EPD Scale: [...] GED or equivalent No 01/23/2025 Preferred Language [place] Islander 01/23/2025 PHQ-2 Answer Date Recorded Patient Health [...] below. Patient Active Problem List Diagnosis WPW (Hojep-Qwswjzqun-Uyrca syndrome) SVT (supraventricular tachycardia) Herpes simplex type [...] information as entered above. Kartik Patrick Maurice, MANAGER TRAFFIC BP 118/70 Wt 122 kg (269 lb 12.8 oz) LMP 05/24/2024 BMI 44.90 kg/m?? EXAM: Vitals BP: 118/70 Weight: 122 kg (269 lb 12.8 oz) Heart Rate: NST+ Dilation/Effacement/Station Dilation: 3 Effacement (%): 60 Urine Glucose Read-only: Negative Urine Protein Read-only: Negative Assessment and Plan Problem List Items Addressed This Visit WPW (Adijf-Xrilrenwx-Dvkrk syndrome) Overview Dr. Fernando in [place] [facility] & 2 week holter monitor in August 2023 wnl per patient. PDC appt 11/04; ultrasound within normal limits and normal growth. EFW 57%. No follow-up ultrasound scheduled. Relevant Medications labetalol (NORMODYNE) 100 MG tablet Herpes simplex type 2 (HSV-2) infection affecting , antepartum Overview Pending culture results from Dr. Cordero in [facility]. 10/11/2023 HSV 2 IgG positive; consistent with recurrent HSV2. Rx valtrex For suppression 500 mg daily. Relevant Medications valACYclovir (VALTREX) 500 MG tablet Obesity in , antepartum Overview BMI 44 [facility] at [facility]. History of pre-eclampsia in prior , [...] 04/17/2025 1:40 PM EDT Visit [facility] [address] [place] [address] Aydin Crowe MD [address] [facility] [address] [place] [address] Scheduled Orders Name Type Priority Associated Diagnoses [...] PM EDT) Glucose, UA Negative Negative mg/dL [facility] Urine 02/16/2025 2:35 PM EDT us Kartik Maurice APRN POINT OF CARE TEST O RDERABLES Final Result [facility]
[address] [place] [address], * POC Protein, Urine, Qualitative, Dipstick (02/16/2025 2:35 PM EDT) Protein, POC Negative Negative mg/dL [facility] Lot Number 0 [facility] Expiration Date 0 [facility] Urine 02/16/2025 2:35 PM EDT Kartik Maurice APRN POINT OF CARE TEST O RDERABLES Final Result [facility]
[address] [place] [address], [place] [phone] * Procedure Scanned (02/16/2025) Kartik Maurice APRN PROCEDURE/MINOR SURG ICAL ORDERABLES Final Result documented in this encounter Visit Diagnoses Diagnosis care, third trimester- Primary 34 weeks gestation of Chronic hypertension affecting WPW (Inqga-Kjcnchxdo-Sneal syndrome) Anomalous atrioventricular excitation Obesity in , [...] classified documented in this encounter Care Teams Floor Tech Relationship Specialty Start Date End Date Jefe Schwartz MD [address] [place] [address] [address] [facility] [address] [place] [address] PCP - General Adolescent Medicine 12/14/23 documented as of this encounter
--- OUTSIDE RECORDS SUMMARY | 2025-02-18 22:19 | XMS_ITS | Encounter Summary ---
Author Organization [facility] Address [address] [place] [address] Care Team Providers Care Adjunct Instructor Of Women'S Studies Name Role Phone Jefe Schwartz MD Primary Care Provider [phone] Reason for Visit * Reason Comments Contractions * Auth/Cert (Routine) Specialty Diagnoses / Procedures Referred By Contac t Referred To Contact Diagnoses labor in third trimester with delivery Referral ID Status Reason Start Date Expiration Date Visits Re quested Visits Authorized [id number] 1 1 Encounter Details Date Type Department Care Team (Late st Contact Info) Description 02/18/2025 10:19 PM EDT - 02/19/2025 8:03 AM EDT Hospital Encounter [facility] [address] [place] [address] Aydin Crowe MD [address] [phone] Gerardo Diaz MD [address] [address] Discharge Disposition: Home or Self Care Social History Tobacco Use Types Packs/Day Years Used Date Smoking Tobacco: Former Cigarettes Q uit: 01/2024 Smokeless Tobacco: Never Tobacco Cessation:Counseling Given: No Comments:Vape. Alcohol Use Standard Drinks/Week Comments Never 0 (1 standard drink = 0.6 oz pur e alcohol) [facility] Utilities Answer Date Recorded In the past 12 months has [employer], [employer], or [employer] threatened to shut off services in your [...] and heating? Not hard at all 02/18/2025 [facility] Occupational Stress Questionnaire Answer Date Recorded [...] things needed for daily living? No 02/18/2025 [place] Depression Scale Answer Date Recorded Retired [place] Depression Score 11 02/23/2024 Retired EPD Scale: [...] GED or equivalent No 02/18/2025 Preferred Language Somali 02/18/2025 PHQ-2 Answer Date Recorded Patient Health [...] Sign Reading Time Taken Comments Blood Pressure 111/61 02/19/2025 7:11 AM EDT Pulse 80 02/19/2025 7:11 AM EDT Temperature 36.5 C (97.7 F) 02/19/2025 7:11 AM EDT Respiratory Rate 16 02/19/2025 7:11 AM EDT Oxygen Saturation 97% 02/18/2025 10:44 PM EDT Inhaled Oxygen Concentration - - Weight 122 kg (268 lb) 02/18/2025 10:39 PM EDT Height 165.1 cm (5' 5 ) 02/18/2025 10:39 PM EDT Body Mass Index 44.6 02/18/2025 10:39 PM EDT documented in this encounter Functional Status * Over the past 2 weeks, how often have you been bothered by any of the following problems? Question Answer Date of Assessment Author Patient Health Questionnaire -2 Score 0 02/18/2025 11:45 PM EDT Lalito Evans RN * Question Answer Date of Assessment Author 1. Wish to be (Past 1 Month) No 025 10:41 PM EDT Lalito Evans RN 2. Non-Specific Active Suici anna Thoughts (Past 1 Month) No 02/18/2025 10:41 PM EDT Jonah Evans RN * Calculated C-SSRS Risk Score (Lifetime/Recent) Answer Date of Assessment Author No Risk Indicated 02/18/2025 10:41 PM EDT Lalito Evans RN * [place] Suicide Severity Rating Scale (Screener/Recent Self-Report) Question Answer Date of Assessment Author 6. Suicidal Behavior (Lifetime) No 10:41 PM EDT Lalito Evans RN * Question Answer Date of Assessment Author Little interest or pleasure in doing things Not at all 02/18/2025 11:45 PM EDT Lalito Evans RN Feeling down, depressed, or hopeless Not at all 02/18/2025 11:45 PM EDT Lalito Evans RN documented as of this encounter Discharge Summaries * Gerardo Diaz MD - 02/19/2025 8:03 AM EDT Admission date: 02/18/2025 Discharge date: 02/19/25 Referring Provider: Aydin Crowe MD Admission diagnosis: labor in third trimester with delivery [O60.14X0] * No active hospital problems. * Discharge diagnosis: labor in third trimester contractions Consultants: None Hospital course: The patient was admitted overnight for observation due to contractions. The patient was found to have no cervical change this morning with category 1 tracing. Her contractions have slowed and she is no longer appearing to be in labor. 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 Vitals: 02/19/25 0711 BP: 111/61 Pulse: 80 Resp: 16 Temp: 97.7 ??F (36.5 ??C) SpO2: GENERAL: Well-developed, well-nourished in no acute distress. ABD: Gravid NST: reactive SVE: 4/50/-2 FHT's: category I EXTREMITIES: No clubbing, cyanosis or edema. PSYCHIATRIC: Normal affect and mood. Discharge condition: stable Discharge diet Dietary Orders (From admission, onward) Start Ordered 02/18/250 Diet: Liquid; Clear Liquid; Fluid Consistency: Thin (IDDSI 0) Diet Effective Now References: Diet Order Definitions Question Answer Comment Diets: Liquid Liquid Diet: Clear Liquid Fluid Consistency: Thin (IDDSI 0) 02/18/252310 Additional Instructions: Call with fevers, uncontrolled nausea/vomiting/pain. Medications: Discharge Medications PAUSE taking these medications Instructions Start Date labetalol 100 MG tablet Wait to take this until your doctor or other care provider tells you to start again. Commonly known as: NORMODYNE 100 mg, Oral, 2 Times Daily Continue These Medications Instructions Start Date ACCRUFeR 30 MG capsule Generic drug: Ferric Maltol 30 mg, Oral, 2 Times Daily, Take on an empty stomach. aspirin 81 MG chewable tablet 81 mg, Oral, Daily metroNIDAZOLE 500 MG tablet Commonly known as: FLAGYL 500 mg, Oral, 2 Times Daily vitamins 29-1 MG tablet tablet 1 tablet, Oral, Daily valACYclovir 500 MG tablet Commonly known as: VALTREX 500 mg, Oral, Daily Disposition:Home or Self Care Follow up: Future Appointments Date Time Provider Department Center 02/20/2025 9:50 AM Aydin Crowe MD [facility] OB [id number] [facility] 02/23/2025 2:15 PM [facility] PDC US 1 [facility] PDC [facility] 02/23/2025 2:15 PM [facility] PDC FOLLOW UP [facility] PDC [facility] None 02/23/2025 3:15 PM Kartik Maurice APRN [facility] [id number] [facility] 02/27/2025 9:40 AM Aydin Crowe MD [facility] [id number] [facility] 03/02/2025 9:30 AM Kartik Maurice APRN [facility] [id number] [facility] 03/06/2025 10:40 AM Aydin Crowe MD [facility] [id number] [facility] Over 30 minutes on discharge. Counseling and coordinating care. Gerardo Diaz MD documented in this encounter Discharge Instructions * Attachments The following attachments cannot be sent through Care Everywhere. * Third Trimester of (Somali) documented in this encounter Medications at Time of Discharge Ferric Maltol (ACCRUFeR) 30 MG capsule Take 1 capsule by mouth 2 (Two) Times a Day. Take on an empty stomach. 60 capsule 9 01/18/2025 vitamins (PRENATABS RX) 29-1 MG tablet tablet Take 1 tablet by mouth Daily. 30 tablet 11 07/25/2024 07/25/2025 metroNIDAZOLE (FLAGYL) 500 MG tabletIndications :Bacterial vaginosis Take 1 tablet by mouth 2 (Two) Times a Day for 7 days. 14 tablet 02/13/2025 02/20/2025 aspirin 81 MG chewable tablet Chew 1 tablet Daily. 30 tablet 6 09/14/2024 03/08/2025 valACYclovir (VALTREX) 500 MG tablet Take 1 tablet by mouth Daily. 30 tablet 6 12/27/2024 10:36 AM EDT 12/27/2024 03/08/2025 labetalol (NORMODYNE) 100 MG tablet Take 1 tablet by mouth 2 (Two) Times a Day. 60 tablet 8 01/01/2025 03/08/2025 documented as of this encounter H&P Notes * Gerardo Diaz MD - 02/19/2025 8:01 AM EDT Images from the original note were not included. [facility] Obstetric History and Physical Referring Provider: Aydin Crowe MD Chief Complaint Patient presents with Contractions Subjective Patient is a 24 y.o. female currently at 34w6d, who presents with labor. She was admitted overnight for observation and to rule out labor. Her care is complicated by labor and prior delivery < 36 weeks. The following portions of the patients history were reviewed and updated as appropriate: current medications, allergies, past medical history, past surgical history, past family history, past social history, and problem list . Information: Maternal Labs Blood Type ABO Type Date Value Ref Range Status 02/18/2025 A Final Rh Status RH type Date Value Ref Range Status 02/18/2025 Positive Final Antibody Screen Antibody Screen Date Value Ref Range Status 02/18/2025 Negative Final Gonnorhea No results found for: GCCX Chlamydia No results found for: CLAMYDCU RPR No results found for: RPR Syphilis Antibody No results found for: SYPHILIS Rubella No results found for: RUBELLAIGGIN Hepatitis B Surface Antigen No results found for: HEPBSAG HIV-1 Antibody No results found for: LABHIV1 Hepatitis C Antibody No results found for: HEPCAB Rapid Urin Drug Screen No results found for: AMPMETHU , BARBITSCNUR , LABBENZSCN , LABMETHSCN , LABOPIASCN , THCURSCR , COCAINEUR , AMPHETSCREEN , PROPOXSCN , BUPRENORSCNU , METAMPSCNUR , OXYCODONESCN , TRICYCLICSCN Group B Strep Culture No results found for: GBSANTIGEN External Results Outside Results - Transcribed From Office Records - See Scanned Records For Details Test Value Date Time ABO A 02/18/252346 Rh Positive 02/18/25 2347 Antibody Screen Negative 02/18/25 2347 Negative 01/23/25 2249 Negative 01/11/25 1055 Negative 12/31/24 0804 Negative 12/25/24 2003 Negative 08/17/24 1531 Varicella IgG Rubella 2.80 index 08/17/24 1531 Hgb 9.0 g/dL 02/18/25 2347 9.6 g/dL 02/09/25 1239 9.3 g/dL 02/06/25 1430 9.4 g/dL 01/23/25 2249 9.2 g/dL 01/11/25 1055 9.4 g/dL 12/31/24 0804 9.8 g/dL 12/26/24 2224 10.6 g/dL 12/25/24 2003 9.9 g/dL 12/21/24 1445 9.9 g/dL 12/21/24 ^ 11.3 g/dL 10/06/24 1525 11.1 g/dL 10/05/24 1832 11.5 g/dL 08/17/24 1531 11.1 g/dL 07/25/24 1426 Hct 28.3 % 02/18/25 2347 30.8 % 02/09/25 1239 28.5 % 02/06/25 1430 30.0 % 01/23/25 2249 27.8 % 01/11/25 1055 29.5 % 12/31/24 0804 31.7 % 12/26/24 2224 33.1 % 12/25/242002 31.4 % 12/21/24 1445 31.4 % 12/21/24 ^ 35.2 % 10/06/24 1525 35.4 % 10/05/24 1832 35.5 % 08/17/24 1531 35.5 % 07/25/24 1426 HgB A1c 1h GTT 132 mg/dL 01/11/25 1055 3h GTT Fasting 3h GTT 1 hour 3h GTT 2 hour 3h GTT 3 hour Gonorrhea (discrete) Negative 02/13/25 Not Detected 12/30/24 1106 Negative 12/12/24 Negative 08/17/24 1531 Chlamydia (discrete) Negative 02/13/25 Not Detected 12/30/24 1106 Negative 12/12/24 Negative 08/17/24 1531 RPR Non Reactive 01/11/25 1055 Non Reactive 08/17/24 1531 Syphils cascade: TP-Ab (FTA) Non-Reactive 01/23/252248 Non-Reactive 12/25/242002 TP-Ab Non-Reactive 01/23/259 Non-Reactive 12/25/242002 TP-Ab (EIA) TPPA HBsAg ^ Negative 10/06/24 1525 Negative 08/17/24 1531 Herpes Simplex Virus PCR Herpes Simplex VIrus Culture HIV ^ Non Reactive 10/06/24 1525 Non Reactive 08/17/24 1531 Hep C RNA Quant PCR Hep C Antibody Non Reactive 08/17/24 1531 AFP NIPT Cystic Fibrosis (Cata) Cystic Fibroisis Spinal Muscular atrophy Fragile X Group B Strep No Group B Streptococcus isolated 02/13/25 1855 GBS Susceptibility to Clindamycin GBS Susceptibility to Erythromycin Fibronectin Genetic Testing, Maternal Blood Drug Screening Test Value Date Time Urine Drug Screen Amphetamine Screen Negative ng/mL 08/17/24 1531 Barbiturate Screen Negative ng/mL 08/17/24 1531 Benzodiazepine Screen Negative ng/mL 08/17/24 1531 Methadone Screen Negative ng/mL 08/17/24 1531 Phencyclidine Screen Negative ng/mL 08/17/24 1531 Opiates Screen THC Screen Cocaine Screen Propoxyphene Screen Negative ng/mL 08/17/24 1531 Buprenorphine Screen Methamphetamine Screen Oxycodone Screen Tricyclic Antidepressants Screen Legend ^: Historical Past OB History: OB History Para Term AB Living 2 1 0 1 0 1 SAB IAB Ectopic Molar Multiple Live Births 0 0 0 0 0 1 # Outcome Date GA Lbr Jaime/2nd Weight Sex Type Anes PTL Lv 2 Current 1 12/12/23 35w5d 11:32 / 00:54 2625 g (5 lb 12.6 oz) F Vag-Spont EPI N JOSE F Name: Ladan Luna Apgar1: 7 Apgar5: 9 Obstetric Comments FOB #1- G1-2 Past Medical History: Past Medical History: Diagnosis Date Abnormal ECG echo normal and holter monitor for 2 wks in 08/2023- MD told pt nothing alarming Abnormal Pap smear of cervix 06/09/2023 always abnormal due to psoriatic dis Anemia Anxiety Bipolar disorder meds in the past- MD took pt off of ablilfy due to condition improved Chronic hypertension affecting 10/26/2023 Transfer of care at [address] Cordero in [place] Baseline PEP, 24 Hour urine, HGBA1C, TSH drawn at [facility] (29wk); not on medication No meds prior to . Baby aspirin 81mg daily. 11/05/23; PDC u/s 30 wk; EFW 57% 11/04 24 hr urine 303 mg; UTI??Rx Macrobid 11/08 12/01; REPEAT 24 HR URINE andPEP. PEP was normal. 24 hour urine protein 12/09/2023 was 395 GBS (group B Streptococcus carrier), +RV culture, currently 12/11/2023 Group B strep screen positive. Herpes last outbreak 09/2023, now taking valtrex Hypertension treated with metoprolol Maternal anemia in , antepartum 10/26/2023 On iron supplementation. 11/05/2023 HCT 29.1%. 11/18/2023 Rx Accrufer 30 mg bid (normal spontaneous vaginal delivery) 12/12/2023 PCR DNA positive for HSV2 Polycystic ovary syndrome 03-10-2022 11/18/2023 23-year-old G1, P0 Transfer of care @ 28 weeks from [place] unemployed. 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 Anemia 28 weeks hematocrit 29%.: on iron. PDC u/s 30 wk; EFW 57% Growth ultrasound 12/01 EFW 48%. AC 66%. Psoriatic arthritis [address] 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 Her smoking use included cigarettes. She has never used smokeless tobacco. reports no history of alcohol use. reports no history of drug use. General ROS Negative Findings:Headaches, Visual Changes, Epigastric pain, Anorexia, Nausia/Vomiting, ROM, and Vaginal Bleeding ROS All other systems have been reviewed and are neg Objective Vital Signs Range for the last 24 hours Temperature: Temp: [97.7 ??F (36.5 ??C)-98.8 ??F (37.1 ??C)] 97.7 ??F (36.5 ??C) Temp Source: Temp src: Oral BP: BP: (109-130)/(58-84) 111/61 Pulse: Heart Rate: [80-98] 80 Respirations: Resp: [16] 16 SPO2: SpO2: [97 %] 97 % O2 Amount (l/min): O2 Devices Weight: Weight: [122 kg (268 lb)] 122 kg (268 lb) Physical Examination: General: alert, appears stated age, and cooperative Skin: normal HEENT: Lungs: clear to auscultation bilaterally Heart: regular rate and rhythm, S1, S2 normal, no murmur, click, rub or gallop Abdomen: soft, non-tender; bowel sounds normal; no masses, no organomegaly Lower Extremities Pelvis: Vulva and vagina appear normal. Bimanual exam reveals normal uterus and adnexa. Presentation: vertex Cervix: Exam by: Method: sterile vaginal exam [facility]) Dilation: 4cm Effacement: Cervical Effacement: 50 Station: -2 Heart Rate Assessment Method: HR Assessment Method: external Beats/min: HR (beats/min): 125 Baseline: HR Baseline: normal range Varibility: HR Variability: moderate (amplitude range 6 to 25 bpm) Accels: HR Accelerations: greater than/equal to 15 bpm, lasting at least 15 seconds Decels: HR Decelerations: absent Tracing Category: Uterine Assessment Method: Method: external tocotransducer Frequency (min): Contraction Frequency (Minutes): x1 Ctx Count in 10 min: Duration: Intensity: Contraction Intensity: mild by palpation Intensity by IUPC: Resting Tone: Uterine Resting Tone: soft by palpation Resting Tone by IUPC: [place] Units: Laboratory Results: Lab Results (last 24 hours) Procedure Component Value Units Date/Time Comprehensive Metabolic Panel [[id number]] (Abnormal) Collected: 02/18/252346 Specimen: Blood Updated: 02/19/25 0032 Glucose 71 mg/dL BUN 8.9 mg/dL Creatinine 0.86 mg/dL Sodium 137 mmol/L Potassium 3.6 mmol/L Chloride 105 mmol/L CO2 20.5 mmol/L Calcium 8.7 mg/dL Total Protein 6.0 g/dL Albumin 3.2 g/dL ALT (SGPT) 31 U/L AST (SGOT) 17 U/L Alkaline Phosphatase 91 U/L Total Bilirubin 0.6 mg/dL Globulin 2.8 gm/dL Comment: Calculated Result A/G Ratio 1.1 g/dL BUN/Creatinine Ratio 10.3 Anion Gap 11.5 mmol/L eGFR 96.9 mL/min/1.73 Narrative: GFR Categories in Chronic Kidney Disease (CKD) GFR Category GFR (mL/min/1.73) Interpretation G1 90 or greater Normal or high (1) G2 60-89 Mild decrease (1) G3a 45-59 Mild to moderate decrease G3b 30-44 Moderate to severe decrease G4 15-29 Severe decrease G5 14 or less Kidney failure (1)In the absence of evidence of kidney disease, neither GFR category G1 or G2 fulfill the criteriafor CKD. eGFR calculation 2020 CKD-EPI creatinine equation, which does not include race as a factor CBC (No Diff) [[id number]] (Abnormal) Collected: 02/18/25 2347 Specimen: Blood Updated: 02/19/25 0011 WBC 10.04 10*3/mm3 RBC 3.37 10*6/mm3 Hemoglobin 9.0 g/dL Hematocrit 28.3 % MCV 84.0 fL MCH 26.7 pg MCHC 31.8 g/dL RDW 15.4 % RDW-SD 46.4 fl MPV 11.2 fL Platelets 248 10*3/mm3 Radiology Review: Imaging Results (Last 24 Hours) No results found for the last 24 hours. Other Studies: Assessment & Plan labor in third trimester with delivery Assessment: 1. Intrauterine at 34w6d weeks gestation with reactive status. 2. False labor 3. contractions 4. GBS negative Plan: 1. Patient admitted overnight for observation and rule out labor. 2. Plan of care has been reviewed with patient. 3. Risks, benefits of treatment plan have been discussed. 4. All questions have been answered. 5 Gerardo Diaz MD 02/19/2025 08:01 EDT * Jose Wilcox MD - 02/18/2025 11:02 PM EDT Lisa Trevino [id number] CC: contractions HPI: Patient is 24 y.o. female currently at 34w5d presents with c/o contractions, onset earlier today, became worse and closer at ~1930. Pt denies bleeding or leaking. FM somewhat decreased per pt. PNC comp by chron HTN (now off meds), labor, BMI 45, and hx preeclampsia with first preg PMH: Current meds: PNV valtrex, accufer, baby ASA Illnesses: HTN, WPW (s/p cardiac ablation) Surgeries: cardiac ablation, oral surg, T and A, lap tonya Allergies: fentanyl- psychosis Past OB History: OB History Para Term AB Living 2 1 0 1 0 1 SAB IAB Ectopic Molar Multiple Live Births 0 0 0 0 0 1 # Outcome Date GA Lbr Jaime/2nd Weight Sex Type Anes PTL Lv 2 Current 1 12/12/23 35w5d 11:32 / 00:54 2625 g (5 lb 12.6 oz) F Vag-Spont EPI N JOSE F Name: Ladan Luna Apgar1: 7 Apgar5: 9 Obstetric Comments FOB #1- G1-2 SH: tob neg , EtOH neg, drugs neg General ROS: contractions. All other systems reviewed and are negative. Physical Examination: General appearance - alert, well appearing, and in no distress Vital signs - BP 130/84 Pulse 98 Temp 98.2 ??F (36.8 ??C) (Oral) Resp 16 Ht 165.1 cm (65 ) Wt 122 kg (268 lb) LMP 05/24/2024 SpO2 97% BMI 44.60 kg/m?? HEENT: normocephalic, atraumatic,oropharynx clear, appearance of ears and nose normal Neck - supple, no significant adenopathy, no thyromegaly Lymphatics - no palpable lymphadenopathy in the neck or groin, no hepatosplenomegaly Chest - clear to auscultation, no wheezes, rales or rhonchi, respiratory effort non-labored Heart - normal rate, regular rhythm, no murmurs, rubs, clicks or gallops, no JVD, no lower extremity edema Abdomen - soft, nontender, nondistended, no masses, no hepatosplenomegaly no rebound tenderness noted, bowel sounds normal Vaginal Exam: 4/60%/-2, no blood in vault,external genitalia normal Extremities - no pedal edema noted, no calf tenderness Skin -warm and dry, normal coloration and turgor, no rashes, no suspicious skin lesions noted monitoring: indication labor, onset 2227, offset 2306, baseline 135, mod BTB variability, multiple accels (15 X 15), no decels, irreg contractions, interpretation reactive NST Radiology Assessment 1)IUP 34 5/7 weeks 2) contractions vs labor- pt s/p BMZ X 2. 3)hx labor this preg 4)hx preeclampsia first preg with delivery 5)BMI 45 Plan 1)observe/admit 2)will do expectant management for now 3)discussed with Dr. Forester Jose Wilcox MD 02/18/2025 23:02 EDT documented in this encounter Plan of Treatment Upcoming Encounters Date Type Department Care Team (Late st Contact Info) Description 04/17/2025 1:40 PM EDT Visit [facility] OBGYN [address] [facility] [address] [place] [phone] Aydin Crowe MD [address] [facility] [address] [place] [id number] documented as of this encounter Procedures Procedure Name Priority Date/Time Associated Diagnosis Comments CBC (NO DIFF) Urgent 02/18/2025 11:47 PM EDT TYPE AND SCREEN Urgent 02/18/2025 11:47 PM EDT COMPREHENSIVE METABOLIC PANEL Urgent 02/18/2025 11:47 PM EDT documented in this encounter Results * Type & Screen (02/18/2025 11:47 PM EDT) ABO Type A 02/19/2025 12:30 AM EDT [facility] RH type Positive 02/19/2025 12:30 AM EDT [facility] Antibody Screen Negative 02/19/2025 12:30 AM EDT [facility] T&S Expiration Date 02/21/2025 11:59:59 PM 02/19/2025 12:30 AM EDT [facility] Blood Line / Unknown 02/18/2025 11 :47 PM EDT 02/18/2025 11:53 PM EDT Jose Wilcox MD BLOOD BANK TEST ORDERABLES Edit ed Result - Final [facility]
[address] [place] [address], * (ABNORMAL) Comprehensive Metabolic Panel (02/18/2025 11:47 PM EDT) Glucose 71 65 - 99 mg/dL 02/19/2025 12:32 AM EDT [facility] BUN 8.9 6.0 - 20.0 mg/dL 02/19/2025 12:32 AM EDT [facility] Creatinine 0.86 0.57 - 1.00 mg/dL 02/19/2025 12:32 AM EDT [facility] Sodium 137 136 - 145 mmol/L 02/19/2025 12:32 AM EDT [facility] Potassium 3.6 3.5 - 5.2 mmol/L 02/19/2025 12:32 AM EDT [facility] Chloride 105 98 - 107 mmol/L 02/19/2025 12:32 AM EDT [facility] CO2 20.5(L) 22.0 - 29.0 mmol/L 02/19/2025 12:32 AM EDT [facility] Calcium 8.7 8.6 - 10.5 mg/dL 02/19/2025 12:32 AM EDT [facility] Total Protein 6.0 6.0 - 8.5 g/dL 02/19/2025 12:32 AM EDT [facility] Albumin 3.2(L) 3.5 - 5.2 g/dL 02/19/2025 12:32 AM EDT [facility] ALT (SGPT) 31 1 - 33 U/L 02/19/2025 12:32 AM EDT [facility] AST (SGOT) 17 1 - 32 U/L 02/19/2025 12:32 AM EDT [facility] Alkaline Phosphatase 91 39 - 117 U/L 02/19/2025 12:32 AM EDT [facility] Total Bilirubin 0.6 0.0 - 1.2 mg/dL 02/19/2025 12:32 AM EDT [facility] Globulin 2.8 gm/dL 02/19/2025 12:32 AM EDT [facility] Comment:Calculated Result A/G Ratio 1.1 g/dL 02/19/2025 12:32 AM EDT [facility] BUN/Creatinine Ratio 10.3 7.0 - 25.0 02/19/2025 12:32 AM EDT [facility] Anion Gap 11.5 5.0 - 15.0 mmol/L 02/19/2025 12:32 AM EDT [facility] eGFR 96.9 >60.0 mL/min/1.7 3 02/19/2025 12:32 AM EDT [facility] Blood Line / Unknown 02/18/2025 11 :47 PM EDT 02/19/2025 12:04 AM EDT [facility] - 02/19/2025 12:32 AM EDT GFR Categories in Chronic Kidney Disease (CKD) [...] does not include race as a factor us Jose Wilcox MD LAB BLOOD ORDERABLES Final Resu lt [facility]
[address] [place] [address], * (ABNORMAL) CBC (No Diff) (02/18/2025 11:47 PM EDT) WBC 10.04 3.40 - 10.80 10*3/mm3 02/19/2025 12:11 AM EDT [facility] RBC 3.37(L) 3.77 - 5.28 10*6/mm3 02/19/2025 12:11 AM EDT [facility] Hemoglobin 9.0(L) 12.0 - 15.9 g/dL 02/19/2025 12:11 AM EDT [facility] Hematocrit 28.3(L) 34.0 - 46.6 % 02/19/2025 12:11 AM EDT [facility] MCV 84.0 79.0 - 97.0 fL 02/19/2025 12:11 AM EDT [facility] [facility] MCH 26.7 26.6 - 33.0 pg 02/19/2025 12:11 AM EDT [facility] MCHC 31.8 31.5 - 35.7 g/dL 02/19/2025 12:11 AM EDT [facility] RDW 15.4 12.3 - 15.4 % 02/19/2025 12:11 AM EDT [facility] RDW-SD 46.4 37.0 - 54.0 fl 02/19/2025 12:11 AM EDT [facility] MPV 11.2 6.0 - 12.0 fL 02/19/2025 12:11 AM EDT [facility] Platelets 248 140 - 450 10*3/mm3 02/19/2025 12:11 AM EDT [facility] Blood Line / Unknown 02/18/2025 11 :47 PM EDT 02/19/2025 12:08 AM EDT us Jose Wilcox MD LAB BLOOD ORDERABLES Final Resu lt [facility]
[address] [place] [address], documented in this encounter Visit Diagnoses Diagnosis labor in third trimester with delivery- Primary documented in this encounter Admitting Diagnoses Diagnosis labor in third trimester with delivery documented in this encounter Administered Medications Inactive Administered Medications - up to 3 most recent administrations Medication Order MAR Action Action Date Dose Rate Site ampicillin 2000 mg IVPB in 100 mL NS (MBP) 2 g, Intravenous, at 200 mL/hr, Administer over 30 Minutes, Every 6 Hours, First dose on 02/19/25 at 0000, For 2 days, Activate vial before use., Indications: laborIndications: labor New Bag 02/19/2025 6:04 AM EDT 2 g 200 mL/hr New Bag 02/19/2025 12:19 AM EDT 2 g 200 mL/hr lactated ringers infusion 100 mL/hr, Intravenous, Continuous, Starting on 02/19/25 at 0000, For 2 days New Bag 02/19/2025 12:00 AM EDT 100 mL/hr 10 0 mL/hr documented in this encounter Active and Recently Administered Medications Times are shown in EDT. Scheduled Medication Order 02/17/2025 02/18/2025 02/19/2025 ampicillin 2000 mg IVPB in 100 mL NS (MBP) 2 g, Intravenous, at 200 mL/hr, Administer over 30 Minutes, Every 6 Hours, First dose on 02/19/25 at 0000, For 2 days, Activate vial before use., Indications: labor 0019 (New Bag - Prov ider: Lalito Evans RN)0604 (New Bag - Provider: Lalito Evans RN) sodium chloride 0.9 % flush 10 mL 10 mL, Intravenous, Every 12 Hours Scheduled, First dose on 02/19/25 at 0000 0033 (Not Given - Pr ovider: Lalito Evans RN - Reason: Given from running infusion) Continuous Medication Order 02/17/2025 02/18/2025 02/19/2025 lactated ringers infusion 100 mL/hr, Intravenous, Continuous, Starting on 02/19/25 at 0000, For 2 days 0000 (New Bag - Prov ider: Lalito Evans RN)1008 (Due: Order Ending - Provider: Automatic Discharge Provider - Comment: [Order ends at this time. Document the following action when infusion is complete: Stopped]) PRN Medication Order 02/17/2025 02/18/2025 02/19/2025 lidocaine PF 1% (XYLOCAINE) injection 0.5 mL 0.5 mL, Intradermal, Once As Needed, IV Start, Starting on 02/18/25 at 2308, For 1 dose sodium chloride 0.9 % flush 10 mL 10 mL, Intravenous, As Needed, Line Care, Starting on 02/18/25 at 2308 sodium chloride 0.9 % infusion 40 mL 40 mL, Intravenous, at 100 mL/hr, As Needed, Line Care, Starting on 02/18/25 at 2308, Following administration of an IV intermittent medication, flush line with 40mL NS at 100mL/hr. documented in this encounter Care Teams Adjunct Instructor Of Women'S Studies Relationship Specialty Start Date End Date Jefe Schwartz MD [facility] [address] [phone] PCP - General Adolescent Medicine 12/14/23 documented as of this encounter
--- OUTSIDE RECORDS SUMMARY | 2025-02-20 09:50 | XMS_ITS | Encounter Summary ---
Author Organization [facility] Address [address] [place] [address] Care Team Providers Care Medicaid Billing Clerk Name Role Phone Jefe Schwartz MD Primary Care Provider [phone] Reason for Visit * Reason Comments Routine Visit Non-stress Test 35w0d Encounter Details Date Type Department Care Team (Late st Contact Info) Description 02/20/2025 9:50 AM EDT Routine [facility] OBGYN [address] [phone] Aydin Crowe MD [address] [place] [address] GA: 35w0d Social History Tobacco Use Types Packs/Day Years Used Date Smoking Tobacco: Former Cigarettes Q uit: 01/2024 Smokeless Tobacco: Never Comments:Vape. Alcohol Use Standard Drinks/Week Comments Never 0 (1 standard drink = 0.6 oz pur e alcohol) [facility] Utilities Answer Date Recorded In the past 12 months has [employer], gas, oil, or water [employer] threatened to shut off services in your [...] and heating? Not hard at all 02/18/2025 [facility] of Occupat ional [facility] - Occupational Stress Questionnaire Answer Date [...] things needed for daily living? No 02/18/2025 [place] Depression Scale Answer Date Recorded Retired [place] Depression Score 11 02/23/2024 Retired EPD Scale: [...] GED or equivalent No 02/18/2025 Preferred Language Salvadorean 02/18/2025 PHQ-2 Answer Date Recorded Patient Health [...] 130s/80s. Patient Active Problem List Diagnosis WPW (Rayev-Ljijjtfuu-Ulnkf syndrome) SVT (supraventricular tachycardia) Herpes simplex type [...] antepartum Overview BMI 44 Anomaly scan at [facility]. History of pre-eclampsia in prior , currently [...] 3 days (around 02/23/2025) for after PDC. Ayidn Crowe MD 02/20/2025 documented in this encounter Plan of Treatment Upcoming Encounters Date Type Department Care Team (Late st Contact Info) Description 04/17/2025 1:40 PM EDT Visit [facility] OBGYN [address] [facility] [address] [place] [address] Aydin Crowe MD [address] [facility] [address] [place] [address] documented as of this encounter Procedures Procedure Name Priority Date/Time Associated Diagnosis Comments POCT URINALYSIS DIPSTICK, MANUAL Routine 02/20/2025 10:32 AM EDT care, antepartum, unspecified SCANNED - PROCEDURE 02/20/2025 documented in this encounter Results * POC Urinalysis Dipstick (02/20/2025 10:32 AM EDT) Glucose, UA Negative Negative mg/dL [facility] Protein, POC Negative Negative mg/dL [facility] Urine 02/20/2025 10:3 2 AM EDT us Aydin Crowe MD POINT OF CARE TEST ORDERABLES F inal Result [facility]
[address] [place] [address], [place] [phone] * Procedure Scanned (02/20/2025) us Aydin Crowe [...] complication documented in this encounter Care Teams Medicaid Billing Clerk Relationship Specialty Start Date End Date Jefe Schwartz MD [facility] [place] [address] [address] PCP - General Adolescent Medicine 12/14/23 documented as of this encounter
--- OUTSIDE RECORDS SUMMARY | 2025-02-23 14:03 | XMS_ITS | Encounter Summary ---
Author Organization [facility] Address [address] [place] [address] Care Team Providers Care Fluoroscope Operator Name Role Phone Jefe Schwartz MD Primary Care Provider [phone] Reason for Referral * Diagnostic Imaging (Routine) - Closed Specialty Diagnoses / Procedures Referred By Contact Referred To Contact Obstetrics and Gynecology Diagnoses Poor growth affecting management of mother in third trimester, single or unspecified fetus Procedures [facility] Diagnostic [place] Aydin Crowe MD [address] [place] [address] Phone: tel: fax: [facility] MATERNAL MEDICINE [address] [place] [phone] Phone: tel: fax: Referral ID Status Reason Start Date Expiration Date Visits Re quested Visits Authorized [id number] Closed 02/13/2025 05/15/2026 1 1 Reason for Visit * Diagnostic Imaging (Routine) - Closed Specialty Diagnoses / Procedures Referred By Contact Referred To Contact Obstetrics and Gynecology Diagnoses Poor growth affecting management of mother in third trimester, single or unspecified fetus Procedures [facility] Diagnostic [place] Aydin Crowe MD [address] [place] [address] Phone: tel: fax: [facility]NAL MEDIC[facility] [address] [facility] [address] [place] [address] Phone: tel: fax: Referral ID Status Reason Start Date Expiration Date Visits Re quested Visits Authorized [id number] Closed 02/13/2025 05/15/2026 1 1 Encounter Details Date Type Department Care Team (Late st Contact Info) Description 02/23/2025 2:03 PM EDT - 02/23/2025 11:59 PM EDT Hospital Encounter [facility] [address] [place] [phone] Aydin Crowe MD 1700 [facility] [address] [place] [address] Poor growth affecting management of mother in third trimester, single or unspecified fetus Discharge Disposition: Home or Self Care Social History Tobacco Use Types Packs/Day Years Used Date Smoking Tobacco: Former Cigarettes Q uit: 01/2024 Smokeless Tobacco: Never Comments:Vape. Alcohol Use Standard Drinks/Week Comments Never 0 (1 standard drink = 0.6 oz pur e alcohol) [facility] Utilities Answer Date Recorded In the past 12 months has [employer], gas, oil, or water [employer] threatened to shut off services in your [...] and heating? Not hard at all 02/18/2025 [employer] [place] of Occupat ional Health - Occupational Stress [...] things needed for daily living? No 02/18/2025 [place] Depression Scale Answer Date Recorded Retired [place] Depression Score 11 02/23/2024 Retired EPD Scale: [...] GED or equivalent No 02/18/2025 Preferred Language Swedish 02/18/2025 PHQ-2 Answer Date Recorded Patient Health [...] Description 04/17/2025 1:[address] [facility] OBGYN [address] [place] [address] Aydin Crowe MD [address] [place] [facility] [address] [place] [address] documented as of this encounter Procedures Procedure Name Priority Date/Time Associated Diagnosis Comments [facility] Routine 02/23/2025 2:44 PM EDT Poor growth affecting management of mother in third trimester, single or unspecified fetus documented in this encounter Results * [facility] (02/23/2025 2:44 PM EDT) Anatomical Region Laterality Modality Ultrasound 02/23/2025 2:19 PM EDT Narrative 02/23/2025 2:48 PM EDT PAT NAME: LISA RILEY [facility] REC#: [id number] DA: 2000 PAT GEND: F PAT TYPE: O EXAM JAYSON: [id number] REF PHYS AYDIN CROWE Comparison Studies The [...] EFW (oz) 11 oz EFW by: Hadlock (ANV-GB-PO-FL) Extended Cav. septi pel. tr 5.9 mm [...] Normal Heart / Thorax 3-vessel view: Normal 9-ssplcg-xynbhau view: normal Stomach: Appears normal Kidneys: Appears [...] Recommend 37 week delivery. Coding ======= Description: 11203-70 Follow Up Ultrasound Description: 61857-30 BPP without NST Description: 23832-87 Doppler Umbilical Artery [employer] Conservation Representative: Destini Hall RDMS Physician: Medhat De Anda MD, FACOG Electronically signed by: Medhat De Anda MD, FACOG at: 14:48 Procedure Note Medhat De Anda MD - 02/23/2025 PAT NAME: LISA RILEY MED REC#: [id number] DA: 2000 PAT GEND: F PAT TYPE: O EXAM JAYSON: [id number] REF PHYS CASIMIRO AYDIN Comparison Studies The findings of this study are compared to the prior ultrasound studydated 01/25/25. Patient Status Outpatient Indication ======== contractions. CHTN. Chronic proteinuria. Maternal Ghosh ParkinsonWhite. Hx PTD 35 wk - preeclampsia. Morbid obesity BMI 47 Maternal Assessment Hgjtsz647 cm Bugyqm843 kg Weight (lb)273 lb BMI47.19 kg/m Method ======= Transabdominal ultrasound examination. View: Limited by patient bodyhabitus ========= Schwarz . Number of fetuses: 1 Dating ====== Cycle:irregular cycle GA by prior jygycmlfqp53 w + 3 d CONG by prior [...] GA35 w + 3 d Assigned CONG:03/27/2025 bnfkyz468 d Biometry Standard BPD85.5 mm 34w 3d 27% Hadlock TNF958.7 mm 36w 6d 79% Van HC315.5 mm 35w 3d 18% Hadlock Cerebellum tr45.4 mm 34w 6d 27% Hill AC313.1 mm 35w 2d 53% Hadlock Femur67.2 mm 34w 4d 22% Hadlock Bldkmpt45.2 mm 34w 2d 40% Van HC / AC1.01 EFW2,567 g 34w 6d 37% Hadlock EFW (lb)5 lb EFW (oz)11 oz EFW by:Hadlock (KKD-UV-KC-FL) Extended Cav. septi pel. tr5.9 mm CM6.7 mm 26% Nicolaides Head / Face / Neck Cephalic index0.77 14% Nicolaides Extremities / Bony Struc FL / BPD0.79 FL / HC0.21 FL / AC0.21 Other Structures FXF943 bpm General Evaluation Cardiac activity present. FHR 177 bpm. movements present. Presentation cephalic. Placenta Placental site: posterior, fundal. Amniotic fluid Amount of AF: normal. MVP 4.8 cm. ELIZABETH 13.6 cm. Q1 3.2 cm,Q2 4.8 cm, Q3 3.4 cm, Q4 2.3 cm. Anatomy Cranium:Normal Cavum septi pellucidi:Normal Cerebellum:Normal Cisterna magna:Normal 4-chamber view:Appears normal RVOT view:Normal LVOT view:Normal Heart / Thorax 3-vessel view:Normal 9-vobvbu-faxmknf view:normal Stomach:Appears normal Kidneys:Appears normal Bladder:Appears normal [...] indicated. Recommend 37 week delivery. Coding ======= Description:48085-76 Follow Up Ultrasound Description:72262-83 BPP without NST Description:80746-53 Doppler Umbilical Artery Energy Conservation Representative: Destini Hall RDMS Physician: Medhat De Anda MD, FACOG Electronically signed by: Medhat De Anda MD, FACOG at: 14:48 us Aydin Crowe MD [facility] US ORDERABLES Final Result documented in this encounter Visit Diagnoses Diagnosis Poor growth affecting management of mother in third trimester, single or unspecified fetus documented in this encounter Care Teams Fluoroscope Operator Relationship Specialty Start Date End Date Jefe Schwartz MD [address] [place] [facility] [address] [facility] [address] [facility] [address] PCP - General Adolescent Medicine 12/14/23 documented as of this encounter
--- OUTSIDE RECORDS SUMMARY | 2025-02-23 14:15 | XMS_ITS | Encounter Summary ---
Author Organization [facility] Address [address] [place] [address] Care Team Providers Care Family Manager Name Role Phone Jefe Schwartz MD Primary Care Provider [phone] Reason for Visit * Reason Comments CHTN; proteinuria; contractions; IUGR Encounter Details Date Type Department Care Team (Late st Contact Info) Description 02/23/2025 2:15 PM EDT Office Visit [facility] MATERNAL MEDICINE [address] [place] [phone] Medhat De Anda MD [address] [facility] [address] [place] [address] Chronic hypertension affecting (Primary Dx); Poor growth affecting management of mother in third trimester, single or unspecified fetus Social History Tobacco Use Types Packs/Day Years Used Date Smoking Tobacco: Former Cigarettes Q uit: 01/2024 Smokeless Tobacco: Never Comments:Vape. Alcohol Use Standard Drinks/Week Comments Never 0 (1 standard drink = 0.6 oz pur e alcohol) [facility] Utilities Answer Date Recorded In the past 12 months has [employer], gas, oil, or water company threatened to [...] and heating? Not hard at all 02/18/2025 [facility] [place] of Occupat ional Health - Occupational Stress [...] things needed for daily living? No 02/18/2025 [place] Depression Scale Answer Date Recorded Retired [place] Depression Score 11 02/23/2024 Retired EPD Scale: [...] GED or equivalent No 02/18/2025 Preferred Language Montenegrin 02/18/2025 PHQ-2 Answer Date Recorded Patient Health [...] Medhat De Anda MD, FACOG Maternal Medicine, [facility] documented in this encounter Plan of Treatment Upcoming Encounters Date Type Department Care Team (Late st Contact Info) Description 04/17/2025 1:40 PM EDT Visit [facility] OBGYN [address] [place] [address] Aydin Crowe MD [address] [place] [phone] documented as of this encounter Visit Diagnoses Diagnosis Chronic hypertension affecting - Primary Poor growth affecting management of mother in third trimester, single or unspecified fetus documented in this encounter Care Teams Family Manager Relationship Specialty Start Date End Date Jefe Schwartz MD [address] [facility] [address] [place] [address] PCP - General Adolescent Medicine 12/14/23 documented as of this encounter
--- OUTSIDE RECORDS SUMMARY | 2025-02-23 15:15 | XMS_ITS | Encounter Summary ---
Author Organization [facility] Address [address] [place] [address] Care Team Providers Care Full Stack Java Developer Name Role Phone Jefe Schwartz MD Primary Care Provider [phone] Reason for Visit * Reason Comments Routine Visit Encounter Details Date Type Department Care Team (Late st Contact Info) Description 02/23/2025 3:15 PM EDT Routine [facility] OBGYN [address] [place], [place] [phone] Kartik Maurice, PLAYGROUND DIRECTOR 1700 [facility] [address] [place] [address] GA: 35w3d Social History Tobacco Use Types Packs/Day Years Used Date Smoking Tobacco: Former Cigarettes Q uit: 01/2024 Smokeless Tobacco: Never Comments:Vape. Alcohol Use Standard Drinks/Week Comments Never 0 (1 standard drink = 0.6 oz pur e alcohol) [facility] Utilities Answer Date Recorded In the past 12 months has [employer], gas, oil, or water [employer] threatened to shut off services in your [...] and heating? Not hard at all 02/18/2025 [facility] [place] of Occupat ional Health - Occupational Stress [...] things needed for daily living? No 02/18/2025 [place] Depression Scale Answer Date Recorded Retired [place] Depression Score 11 02/23/2024 Retired EPD Scale: [...] GED or equivalent No 02/18/2025 Preferred Language Venezuelan 02/18/2025 PHQ-2 Answer Date Recorded Patient Health [...] UP CC- Here for care of Lisa Trveino is a 24 y.o. 35w3d patient being seen today for her obstetrical follow up visit. Patient reports increased pressure/pain at pelvic/vaginal regions, daily headaches (blurred vision sometimes; Tylenol helps sometimes), +1 BLE edema, daily nausea (emeses x3 since Thursday; zofran no help), pains that begin at LUQ with radiation to RUQ, daily [place] Guillaume, and daily h eartburn/reflux (Tums helps sometimes). Her care is complicated by (and status): see below. Patient Active Problem List Diagnosis WPW (Mmlsu-Tsndpylty-Ilcpr syndrome) SVT (supraventricular tachycardia) Herpes simplex type [...] historical information as entered above. Kartik Maurice, PLAYGROUND DIRECTOR EXAM: Vitals BP: 124/70 Weight: 124 kg (272 lb 12.8 oz) Heart Rate: NST Dilation/Effacement/Station Dilation: 4 Effacement (%): 50 Urine Glucose Read-only: Negative Urine Protein Read-only: Negative Assessment and Plan Problem List Items Addressed This Visit WPW (Cwzxf-Jsmuwousc-Lzilr syndrome) Overview Dr. Fernando in [place] Echo & 2 week holter monitor in [...] antepartum Overview BMI 44 Anomaly scan at [facility]. History of pre-eclampsia in prior , [...] low on labetalol 100 mg twice daily. [facility] growth ultrasounds at 28 and 32 weeks. [...] Visit [facility] OBGYN [address] [phone] Aydin Crowe MD [address] [address] documented as of this encounter Procedures Procedure [...] PM EDT) Glucose, UA Negative Negative mg/dL [facility] Urine 02/23/2025 3:54 PM EDT Kartik Maurice PLAYGROUND DIRECTOR POINT OF CARE TEST O RDERABLES Final Result Performing Organization Address City/[facility]/ZIP Co de Phone Number [facility]
[address] [place] [address], [place] [phone] * POC Protein, Urine, Qualitative, Dipstick (02/23/2025 3:54 PM EDT) Protein, POC Negative Negative mg/dL [facility] Lot Number 0 [facility] Expiration Date 0 [facility] Urine 02/23/2025 3:54 PM EDT Kartik Maurice APRN POINT OF CARE TEST O RDERABLES Final Result Performing Organization Address City/[facility]/ZIP Co de Phone Number [facility]
[address] [place] [address], [place] [phone] * Procedure Scanned (02/23/2025) Kartik Maurice APRN PROCEDURE/MINOR SURG ICAL ORDERABLES Final Result documented in this encounter Visit Diagnoses Diagnosis care, third trimester- Primary 35 weeks gestation of WPW (Zkflz-Zbyqmvuyw-Asbyq syndrome) Anomalous atrioventricular excitation History of pre-eclampsia [...] antepartum documented in this encounter Care Teams Full Stack Java Developer Relationship Specialty Start Date End Date Jefe Schwartz MD 1210 [facility] [address] [place] [phone] PCP - General Adolescent Medicine 12/14/23 documented as of this encounter
--- OUTSIDE RECORDS SUMMARY | 2025-02-27 09:40 | XMS_ITS | Encounter Summary ---
Author Organization [facility] Address [address] [place] [address] Care Team Providers Care Mail Clerk Name Role Phone Jefe Schwartz MD Primary Care Provider [phone] Reason for Referral * Diagnostic Imaging (Emergency) - Closed Specialty Diagnoses / Procedures Referred By Contact Referred To Contact Obstetrics and Gynecology Diagnoses 36 weeks gestation of Chronic hypertension affecting Procedures US Biophysical Profile;With Non-Stress Testing Aydin Crowe MD [address] [address] Phone: tel: fax: [facility] OBGYN [address] [address] Phone: tel: fax: Referral ID Status Reason Start Date Expiration Date Visits Re quested Visits Authorized [id number] Closed 02/27/2025 05/29/2026 1 1 Reason for Visit * Reason Comments Routine Visit Non-stress Test Encounter Details Date Type Department Care Team (Late st Contact Info) Description 02/27/2025 9:40 AM EDT Routine [facility] OBGYN [address] [facility] [address] [place] [phone] Aydin Crowe MD [address] [place] [id number] [place]: 36w0d Social History Tobacco Use Types Packs/Day Years Used Date Smoking Tobacco: Former Cigarettes Q uit: 01/2024 Smokeless Tobacco: Never Comments:Vape. Alcohol Use Standard Drinks/Week Comments Never 0 (1 standard drink = 0.6 oz pur e alcohol) [facility] Utilities Answer Date Recorded In [...] and heating? Not hard at all 02/18/2025 [facility] of Occupat ional Health - Occupational Stress [...] things needed for daily living? No 02/18/2025 [place] Depression Scale Answer Date Recorded Retired [place] Depression Score 11 02/23/2024 Retired EPD Scale: [...] none 02/18/2025 Family and Community Support Answer Geri e [...] GED or equivalent No 02/18/2025 Preferred Language Malawian 02/18/2025 PHQ-2 Answer Date Recorded Patient Health [...] Sign Reading Time Taken Comments Blood Pressure 134/82 02/27/2025 10:14 AM EDT Pulse - - Temperature - - Respiratory Rate - - Oxygen Saturation - - Inhaled Oxygen Concentration - - Weight 123 kg (272 lb) 02/27/2025 10:14 AM EDT Height - - Body Mass Index 45.26 02/18/2025 10:39 PM EDT documented in this encounter Progress Notes * Aydin Crowe MD - 02/27/2025 9:40 AM EDT Images from the original note were not included. OB FOLLOW UP CC- Here for care of Sarbjit Riley is a 24 y.o. 36w0d patient being seen today for her obstetrical follow up visit. Patient reports increased edema at BLE (described as tight, but not painful), [place] Guillaume that cause increased vaginal pain, daily headaches (denies vision changes), nausea/vomiting(emeses at least twice daily; zofran is not helping), daily heartburn/reflux (Tums not helping; recommended pepcid), decreased movement (present nearly 3 weeks - see previous notes), and itching all over her back (present 1 week). Home B/Ps running 130-135/80-85. Her care is complicated by (and status): see below. Patient Active Problem List Diagnosis WPW (Ytylt-Skmxlbiwk-Keptd syndrome) SVT (supraventricular tachycardia) Herpes simplex type [...] flu season Her Delivery Plan is: IOL scheduled 03/06 Non Stress Test: Yes, 20+ minutes non-stress test: NST: Non-Reactive-> BPP 8/10 indication: CHTN Need nitrous consent: No - patient denies interest today ROS - Patient Denies: Loss of Fluid, Vaginal Spotting, and Vision Changes Movement: decreased Other than what is documented [...] information as entered above. Aydin Crowe MD EXAM: Vitals BP: 134/82 Weight: 123 kg (272 lb) Heart Rate: NST+ Urine Glucose Read-only: Negative Urine Protein Read-only: [...] (NORMODYNE) 100 MG tablet Other Relevant Orders US Biophysical Profile;With Non-Stress Testing (Completed) Overview 23 yo IOL at 35 5/7wk superim preeclampsia ( 12-12-23) Dates by 8 w 2 d u/s. Mat21 09/14/24 low risk;c/w male. 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 07/27/24 baseline LDH and UA elevated. >UA 6.5 11/09/2024 anomaly scan at [facility] Worsening of iron deficiency anemia. Hematocrit 27.8%. 1 hour glucose screen was borderline at 132. Should repeat at next visit. Relevant Orders POC Protein, Urine, Qualitative, Dipstick (Completed) POC Glucose, Urine, Qualitative, Dipstick (Completed) US Biophysical Profile;With Non-Stress Testing (Completed) Other Visit Diagnoses care, third trimester - Primary Relevant Orders POC Protein, Urine, Qualitative, Dipstick (Completed) POC Glucose, Urine, Qualitative, Dipstick (Completed) at 36w0d status reassuring. Reviewed Pre-eclampsia signs/symptoms Reviewed upcoming IOL with patient. Instructions given. Delivery options reviewed with patient Signs of labor reviewed Kick counts reviewed Activity and Exercise discussed. Return in about 7 weeks (around 04/17/2025) for Visit (Can cancel MELECIO with me next thursday,she's being induced). Aydin Crowe MD 02/27/2025 documented in this encounter Plan of Treatment Upcoming Encounters Date Type Department Care Team (Late st Contact Info) Description 04/17/2025 1:40 PM EDT Visit [facility] OBGYN [address] [facility] [address] [place] [phone] Aydin Crowe MD [address] [facility] [address] [place] [address] documented as of this encounter Procedures Procedure Name Priority Date/Time Associated Diagnosis Comments POCT PROTEIN, URINE, QUALITATIVE, DIPSTICK Routine 02/27/2025 10:27 AM EDT care, third trimester 36 weeks gestation of POCT GLUCOSE, URINE, QUALITATIVE, DIPSTICK Routine 02/27/2025 10:27 AM EDT care, third trimester 36 weeks gestation of SCANNED - PROCEDURE 02/27/2025 documented in this encounter Results * US Biophysical Profile;With Non-Stress Testing (02/27/2025 11:10 AM EDT) Anatomical Region Laterality Modality Body Ultrasound 02/27/2025 11:5 2 AM EDT Narrative 02/27/2025 11:12 AM EDT PAT NAME: SARBJIT RILEY MED REC#: [id number] DA: 2000 PAT GEND: F PAT TYPE: O EXAM GERI: [id number] REF PHYS AYDIN CROWE Indication ======== Non reactive NST; Morbid obesity BMI 45 Comparison Studies The findings of this study are compared to the prior ultrasound study dated 02/23/25 Method ======= Voluson E6, Transabdominal ultrasound examination. View: Sufficient ========= Schwarz . Number of fetuses: 1 Dating ====== Cycle: irregular cycle Method of dating: based on stated CONG GA by prior assessment 36 w + 0 d CONG by prior assessment: 03/27/2025 Previous Ultrasound on: 07/25/2024 Type of prior assessment: GS mean Previous dating: based on stated CONG, selected on 02/03/2025 Agreed CONG of previous datin03/27/2025 Assigned: based on stated CONG, selected on 02/27/2025 Assigned GA 36 w + 0 d Assigned CONG: 03/27/2025 length 280 d General Evaluation Cardiac activity present. FHR 173 bpm. movements visualized. Presentation cephalic. Placenta Placental site: posterior. Amniotic Fluid Assessment Amount of AF: normal MVP 3.8 cm. ELIZABETH 11.7 cm. Q1 2.3 cm, Q2 2.9 cm, Q3 3.8 cm, Q4 2.8 cm Biophysical Profile 2: breathing movements 2: Gross body movements 2: tone 2: Amniotic fluid volume NST: non-reactive 03/19 Biophysical profile score Interpretation: normal Anatomy Lateral ventricles: Appears normal 4-chamber view: suboptimal Stomach: Appears normal Kidneys: Appears normal Bladder: Appears normal Gender: male Wants to know gender: yes Impression Normal BPP Amniotic fluid volume is normal. Recommendation Continue the routine schedule of testing for the condition being monitored. Turnaround Engineer: Annamaria Eli RT R, [place] Physician: Aydin Crowe MD Electronically signed by: Aydin Crowe MD at: 11:12 Procedure Note Aydin Crowe MD - 02/27/2025 PAT NAME: SARBJIT RILEY MED REC#: [id number] DA: 2000 PAT GEND: F PAT TYPE: O EXAM GERI: [id number] REF PHYS AYDIN CROWE Indication ======== Non reactive NST; Morbid obesity BMI 45 Comparison Studies The findings of this study are compared to the prior ultrasound studydated 02/23/25 Method ======= Voluson E6, Transabdominal ultrasound examination. View: Sufficient ========= Schwarz . Number of fetuses: 1 Dating ====== Cycle:irregular cycle Method of dating:based on stated CONG GA by prior w + 0 d CONG by prior assessment:03/27/2025 Previous Ultrasound on:07/25/2024 Type of prior assessment:GS mean Previous dating:based on stated CONG, selected on 02/03/2025 Agreed CONG of previous datin03/27/2025 Assigned:based on stated CONG, selected on 02/27/2025 Assigned GA36 w + 0 d Assigned CONG:03/27/2025 [email or web address] d General Evaluation Cardiac activity present. FHR 173 bpm. movements visualized. Presentation cephalic. Placenta Placental site: posterior. Amniotic Fluid Assessment Amount of AF: normal MVP 3.8 cm. ELIZABETH 11.7 cm. Q1 2.3 cm, Q2 2.9 cm, Q3 3.8 cm, Q4 2.8 cm Biophysical Profile 2: breathing movements 2: Gross body movements 2: tone 2: Amniotic fluid volume NST: non-reactive 03/19 Biophysical profile score Interpretation: normal Anatomy Lateral ventricles:Appears normal 4-chamber view:suboptimal Stomach:Appears normal Kidneys:Appears normal Bladder:Appears normal Gender:male Wants to know gender:yes Impression Normal BPP Amniotic fluid volume is normal. Recommendation Continue the routine schedule of testing for the condition beingmonitored. Turnaround Engineer: Annamaria Eli RT R, [facility] Physician: Aydin Crowe MD Electronically signed by: Aydin Crowe MD at: 11:12 Aydin Crowe MD [facility] US ORDERABLES Final Result * POC Glucose, Urine, Qualitative, Dipstick (02/27/2025 10:27 AM EDT) Glucose, UA Negative Negative mg/dL [facility] Urine 02/27/2025 10:2 7 AM EDT Aydin Crowe MD POINT OF CARE TEST ORDERABLES F inal Result Performing Organization Address [facility]/ZIP Co de Phone Number [facility]
[address] [place] [address], [place] [phone] * POC Protein, Urine, Qualitative, Dipstick (02/27/2025 10:27 AM EDT) Protein, POC Negative Negative mg/dL [facility] Lot Number 0 [facility] Expiration Date 0 [facility] Urine 02/27/2025 10:2 7 AM EDT Aydin Crowe MD POINT OF CARE TEST ORDERABLES F inal Result Performing Organization Address City/[facility]/ZIP Co de Phone Number [facility]
[address] [place] [address], [place] [phone] * Procedure Scanned (02/27/2025) Aydin Crowe MD PROCEDURE/MINOR SURGICAL ORDERA BLES Final Result documented in this encounter Visit Diagnoses Diagnosis care, third trimester- Primary 36 weeks gestation of Chronic hypertension affecting 36 weeks gestation of Chronic hypertension affecting documented in this encounter Care Teams Mail Clerk Relationship Specialty Start Date End Date Jefe Schwartz MD [address] [place] [address] [place] [address] PCP - General Adolescent Medicine 12/14/23 documented as of this encounter
--- OUTSIDE RECORDS SUMMARY | 2025-02-27 10:50 | XMS_ITS | Encounter Summary ---
Author Organization [facility] Address [address] [place] [address] Care Team Providers Care Aircraft Quality Control Inspector Name Role Phone Jefe Schwartz MD Primary Care Provider [phone] Reason for Visit * Diagnostic Imaging (Emergency) - Closed Specialty Diagnoses / Procedures Referred By Contact Referred To Contact Obstetrics and Gynecology Diagnoses 36 weeks gestation of Chronic hypertension affecting Procedures US Biophysical Profile;With Non-Stress Testing Aydin Crowe MD [address] [address] Phone: tel: fax: [facility] OBGYN [address] [address] Phone: tel: fax: Referral ID Status Reason Start Date Expiration Date Visits Re quested Visits Authorized [id number] Closed 02/27/2025 05/29/2026 1 1 Encounter Details Date Type Department Care Team (Latest Contact Info) Description 02/27/2025 10:50 AM EDT Ancillary Procedure [facility] O[facility]YN [address] [address] 36 weeks gestation of ; Chronic hypertension affecting Social History Tobacco Use Types Packs/Day Years Used Date Smoking Tobacco: Former Cigarettes Q uit: 01/2024 Smokeless Tobacco: Never Comments:Vape. Alcohol Use Standard Drinks/Week Comments Never 0 (1 standard drink = 0.6 oz pur e alcohol) [facility] Utilities Answer Date Recorded In the [...] and heating? Not hard at all 02/18/2025 [facility] of Occupat ional Health - Occupational [...] things needed for daily living? No 02/18/2025 [place] Depression Scale Answer Date Recorded Retired [place] Depression Score 11 02/23/2024 Retired EPD Scale: [...] GED or equivalent No 02/18/2025 Preferred Language Mauritian 02/18/2025 PHQ-2 Answer Date Recorded Patient Health [...] Info) Description 04/17/2025 1:40 PM EDT Visit [facility] OBGYN [address] [place] [address] Aydin Crowe MD [address] [place] [address] documented as of this encounter Procedures Procedure [...] EDT PAT NAME: SARBJIT RILEY MED REC#: [id number] DA: 2000 PAT GEND: F PAT TYPE: O EXAM GERI: [id number] REF PHYS AYDIN CROWE Indication ======== Non [...] of testing for the condition being monitored. Db2 Developer: RT Kyle Pringle, [facility] Physician: Aydin Crowe MD Electronically signed by: Aydin Crowe MD at: 11:12 Procedure Note Aydin Crowe MD - 02/27/2025 PAT NAME: SARBJIT RILEY [facility] REC#: [id number] DA: 2000 PAT GEND: F PAT TYPE: O EXAM GERI: [id number] REF PHYS AYDIN CROWE Indication ======== Non reactive NST; Morbid obesity BMI 45 Comparison Studies The findings of this study are compared to the prior ultrasound studydated 02/23/25 Method ======= Voluson E6, Transabdominal ultrasound examination. View: Sufficient ========= Schwarz . Number of fetuses: 1 Dating ====== Cycle:irregular cycle Method of dating:based on stated CONG GA by prior [id number] w + 0 d CONG by prior assessment:03/27/2025 Previous Ultrasound on:07/25/2024 Type of prior assessment:GS mean Previous dating:based on stated CONG, selected on 02/03/2025 Agreed CONG of previous datin03/27/2025 Assigned:based on stated CONG, selected on 02/27/2025 Assigned GA36 w + 0 d Assigned CONG:03/27/2025 [id number] d General Evaluation Cardiac activity present. FHR [...] schedule of testing for the condition beingmonitored. Db2 Developer: RT Kyle Pringle, [facility] Physician: Aydin Crowe MD Electronically signed by: Aydin Crowe MD at: 11:12 Aydin Crowe MD [facility] US ORDERABLES Final Result documented in this encounter Visit Diagnoses Diagnosis 36 weeks gestation of Chronic hypertension affecting documented in this encounter Care Teams Aircraft Quality Control Inspector Relationship Specialty Start Date End Date Jefe Schwartz MD [address] [place] [facility] [address] [place] [address] PCP - General Adolescent Medicine 12/14/23 documented as of this encounter
--- OUTSIDE RECORDS SUMMARY | 2025-03-02 09:30 | XMS_ITS | Encounter Summary ---
Author Organization [facility] Address [address] [place] [address] Care Team Providers Care Manager Area Name Role Phone Jefe Schwartz MD Primary Care Provider [phone] Reason for Visit * Reason Comments Non-stress Test Routine Visit Encounter Details Date Type Department Care Team (Late st Contact Info) Description 03/02/2025 9:30 AM EDT Routine [facility] OBGYN [address] [place] [address] Kartik Maurice, MATT [address] [facility] [address] [place] [address] GA: 36w3d Social History Tobacco Use Types Packs/Day Years Used Date Smoking Tobacco: Some Days Cigarettes Last attempted to quit: 01/2024 Smokeless Tobacco: Never Tobacco Cessation:Ready to Q uit: Not Asked; Counseling Given: Not Answered Comments:Vape. Alcohol Use Standard Drinks/Week Comments Never 0 (1 standard drink = 0.6 oz pur e alcohol) [facility] Utilities Answer Date Recorded In the past 12 months has [employer], gas, oil, or water company threatened to [...] and heating? Not hard at all 02/18/2025 [facility] of Occupat ional Health - Occupational Stress [...] things needed for daily living? No 02/18/2025 [place] Depression Scale Answer Date Recorded Retired [place] Depression Score 11 02/23/2024 Retired EPD Scale: [...] GED or equivalent No 02/18/2025 Preferred Language Bruneian 02/18/2025 PHQ-2 Answer Date Recorded Patient Health [...] below. Patient Active Problem List Diagnosis WPW (Fmfyg-Lmbhjfsuo-Zwslf syndrome) SVT (supraventricular tachycardia) Herpes simplex type [...] historical information as entered above. Kartik Maurice, BRIDGE INSTRUCTOR EXAM: Vitals BP: 128/70 Weight: 124 kg (274 lb) Heart Rate: NST Dilation/Effacement/Station Dilation: 4 Effacement (%): 70 Urine Glucose Read-only: Negative Urine Protein Read-only: Negative Assessment and Plan Problem List Items Addressed This Visit WPW (Ajocm-Rffyziatx-Cutla syndrome) Overview Dr. Fernando in [place] Echo & 2 week holter monitor [...] antepartum Overview BMI [address] [facility]. History of pre-eclampsia in prior [...] Info) Description 04/17/2025 1:40 PM EDT Visit [facility] O[facility]YN 1700 [facility] [address] [place] [phone] Aydin Crowe MD [address] [place] [address] documented as of this encounter Procedures Procedure Name Priority Date/Time Associated Diagnosis Comments POCT URINALYSIS DIPSTICK, MANUAL Routine 03/02/2025 9:58 AM EDT care, antepartum, unspecified SCANNED - PROCEDURE 03/02/2025 documented in this encounter Results * POC Urinalysis Dipstick (03/02/2025 9:58 AM EDT) Glucose, UA Negative Negative mg/dL [facility] Protein, POC Negative Negative mg/dL [facility] Urine 03/02/2025 9:58 AM EDT Kartik Maurice APRN POINT OF CARE TEST O RDERABLES Final Result [facility]
[address] [place] [address], [place] [phone] * Procedure Scanned (03/02/2025) Kartik Maurice APRN PROCEDURE/MINOR SURG ICAL ORDERABLES Final Result documented in this encounter Visit Diagnoses Diagnosis care, antepartum, unspecified - Primary WPW (Mwqyy-Wsqhaosmd-Zikzs syndrome) Anomalous atrioventricular excitation Obesity in , [...] intake documented in this encounter Care Teams Manager Area Relationship Specialty Start Date End Date Jefe Schwartz MD [address] [facility] [address] [place] [address] PCP - General Adolescent Medicine 12/14/23 documented as of this encounter
--- OUTSIDE RECORDS SUMMARY | 2025-03-06 | XMS_ITS | Encounter Summary ---
Author Organization [facility] Address [address] [place] [address] Care Team Providers Care Sheet Metal Apprentice Name Role Phone Jefe Schwartz MD Primary Care Provider [phone] Reason for Visit * Auth/Cert (Routine) Specialty Diagnoses / Procedures Referred By Contac t Referred To Contact Diagnoses Chronic hypertension in obstetric context, third trimester Referral ID Status Reason Start Date Expiration Date Visits Re quested Visits Authorized [id number] 1 1 Encounter Details Date Type Department Care Team (Latest Contact Info) Description 03/06/2025 - 03/06/2025 11:59 PM EDT Hospital Encounter [facility] LABOR AND DELIVERY PROCEDURES [address] [place] [address] Discharge Disposition: Home or Self [...] Recorded In the past 12 months has [employer], gas, oil, or water [employer] threatened to shut off services in your [...] and heating? Not hard at all 03/06/2025 [facility] [place] of Occupat ional [facility] - Occupational Stress Questionnaire Answer Date Recorded [...] things needed for daily living? No 03/06/2025 [place] Depression Scale Answer Date Recorded [place] Depression Scale Total 8 03/06/2025 The thought [...] GED or equivalent No 03/06/2025 Preferred Language Uzbek 03/06/2025 PHQ-2 Answer Date Recorded Patient Health [...] 03/06/2025 12:42 AM Chelsy Chan RN * [place] Suicide Severity Rating Scale (Screener/Recent Self-Report) Question [...] [facility] [address] [place] [address] Aydin Crowe MD [address] [facility] [address] [place] [phone] documented as of this encounter Visit Diagnoses Not on filedocumented in this encounter Care Teams Sheet Metal Apprentice Relationship Specialty Start Date End Date Jefe Schwartz MD [facility] [address] [place] [address] PCP - General Adolescent Medicine 12/14/23 documented as of this encounter
--- OUTSIDE RECORDS SUMMARY | 2025-03-06 00:04 | XMS_ITS | Encounter Summary ---
Author Organization [facility] Address [address] [place] [address] Care Team Providers Care Trip Follower Name Role Phone Jefe Schwartz MD Primary Care Provider [phone] Reason for Visit * Reason Comments Scheduled Induction * Auth/Cert (Routine) Specialty Diagnoses / Procedures Referred By Contac t Referred To Contact Diagnoses Chronic hypertension in obstetric context, third trimester Referral ID Status Reason Start Date Expiration Date Visits Re quested Visits Authorized [id number] 1 1 Encounter Details Date Type Department Care Team (Late st Contact Info) Description 03/06/2025 12:04 AM EDT - 03/08/2025 10:40 AM EDT Hospital Encounter [facility] [address] [place] [address] Aydin Crowe MD [address] [facility] [address] [place] [address] Discharge Disposition: Home or Self Care Social History Tobacco Use Types Packs/Day Years Used Date Smoking Tobacco: Former Cigarettes Q uit: 01/2024 Passive Smoke Exposure: Past Smokeless Tobacco: Never Tobacco Cessation:Counseling Given: No Comments:Vape. Alcohol Use Standard Drinks/Week Comments Never 0 (1 standard drink = 0.6 oz pur e alcohol) [facility] Utilities Answer Date Recorded In the past 12 months has [employer], gas, oil, or water company threatened [...] and heating? Not hard at all 03/06/2025 [facility] - Occupational Stress Questionnaire Answer [...] things needed for daily living? No 03/06/2025 [place] Depression Scale Answer Date Recorded [place] Depression Scale Total 8 03/06/2025 The thought [...] GED or equivalent No 03/06/2025 Preferred Language Ukrainian 03/06/2025 PHQ-2 Answer Date Recorded Patient Health [...] 03/06/2025 12:42 AM Chelsy Chan RN * [place] Suicide Severity Rating Scale (Screener/Recent Self-Report) Question [...] Date of Discharge: 03/08/2025 Patient: Lisa Trevino MR#:[id number] Delivery Provider: Aydin Crowe Attending Provider: Aydin [...] this encounter Progress Notes * Kelly Patricia, QUALITY IMPROVEMENT CONSULTANT - 03/07/2025 10:20 AM EDT Images from [...] Crowe MD - 03/06/2025 5:48 AM EDT [facility] Vaginal Delivery Note Patient Name: Lisa [...] EDT Subjective Patient without complaints. Her primary human resource analyst has requested artificial rupture of membranes. Objective BP 115/56 (BP Location: Left arm, Patient Position: Lying) Pulse 87 Temp 98.3 ??F (36.8 ??C) (Oral) Resp 16 Ht 165.1 cm (65 ) Wt 124 kg (273 lb) LMP 05/24/2024 No BMI 45.43 kg/m?? General: No acute distress Lungs: No increased work of breathing Cervix: 6/80/-2 heart rate tracins, moderate variability, positive accelerations [place]: Contractions every 3 minutes Assessment and plan AROM-clear fluid Pitocin currently at 6 milliunits with plan to titrate up; RN having difficulty with adequate fetalheart rate tracing - IUPC and FSE placed. Continue current plan per primary human resource analyst. Ryne Ramos MD 03/06/2025 04:11 EDT documented in this encounter H&P Notes * Aydin Crowe MD - 03/06/2025 12:01 AM EDT Images from the original note were not included. [place] Obstetric History and Physical Chief Complaint Patient presents with Scheduled Induction Subjective Patient is a 24 y.o. female currently at 37w0d, who presents with IOL 2/2 CHTN and previousIUGR (now improved), per [facility] recommendation. Her care is complicated by a [...] Range Date Time Amphetamine Screen Negative ng/mL Mbxkpm=2358 08/17/24 1531 Barbiturate Screen Negative ng/mL Cuperq=333 08/17/24 1531 Benzodiazepine Screen Negative ng/mL Luhxtv=520 08/17/24 1531 Methadone Screen Negative ng/mL Ghwtfj=294 08/17/24 1531 Phencyclidine Screen Negative ng/mL Cutoff=25 08/17/24 1531 Opiates Screen Negative ng/mL Zuvzzq=398 08/17/24 1531 THC Screen Negative ng/mL Cutoff=20 08/17/24 1531 Cocaine Screen Negative ng/mL Qktvvl=216 08/17/24 1531 Propoxyphene Screen Negative ng/mL Ozuokl=905 08/17/24 1531 Buprenorphine Screen Methamphetamine Screen Oxycodone [...] at [address] [place] Baseline PEP, 24 Hour urine, HGBA1C, TSH drawn at [facility] (29wk); not on medication No [...] Transfer of care @ 28 weeks from [place] unemployed. 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 Anemia 28 weeks hematocrit 29%.: on iron. PDC u/s 30 wk; EFW 57% Growth ultrasound 12/01 EFW 48%. AC 66%. Psoriatic arthritis [address] 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 at 16 [...] Uterine Resting Tone (mmHg) by IUPC: 20 [place] Units: Cervical Exam: Exam by: Method: sterile [...] Date of Referral 03/06/25 Person Making Referral transportation sales consultant (courtesy visit; newly ) Maternal Reason for Referral other (see comments) (2nd time mother; 1st child did not latch, but mother pumped for 6 weeks; history of PCOS; independent; offered latch assistance, mother accepted) Infant Reason for Referral 35-37 weeks gestation (encouraged pumping due to gestational age and due to history of PCOS to stimulate/encouragemilk production; PHARMACISTS following) Maternal Assessment Breast Size Issue none [...] three hour feedings along with feeding cues. PHARMACISTS following. Provided hospital pump and mother began [...] EDT Visit [facility] [address] [id number] Aydin Crowe MD [address] [address] documented as of this encounter Procedures Procedure [...] CBC (No Diff) (03/08/2025 5:27 AM EDT) [facility] WBC 11.01(H) 3.40 - 10.80 10*3/mm3 03/08/2025 6:04 AM EDT [facility] RBC 2.82(L) 3.77 - 5.28 10*6/mm3 03/08/2025 6:04 AM EDT [facility] Hemoglobin 7.2(L) 12.0 - 15.9 g/dL 03/08/2025 6:04 AM EDT [facility] Hematocrit 24.1(L) 34.0 - 46.6 % 03/08/2025 6:04 AM EDT [facility] MCV 85.5 79.0 - 97.0 fL 03/08/2025 6:04 AM EDT [facility] MCH 25.5(L) 26.6 - 33.0 pg 03/08/2025 6:04 AM EDT [facility] MCHC 29.9(L) 31.5 - 35.7 g/dL 03/08/2025 6:04 AM EDT [facility] RDW 15.5(H) 12.3 - 15.4 % 03/08/2025 6:04 AM EDT [facility] RDW-SD 47.4 37.0 - 54.0 fl 03/08/2025 6:04 AM EDT [facility] MPV 11.8 6.0 - 12.0 fL 03/08/2025 6:04 AM EDT [facility] Platelets 213 140 - 450 10*3/mm3 03/08/2025 6:04 AM EDT [facility] Blood Venipuncture / Unknown 03/08/2025 5:27 AM EDT 03/08/2025 5:55 AM EDT Kelly Patricia QUALITY IMPROVEMENT CONSULTANT LAB BLOOD ORDERABLES Final Result [facility]
[address] [place] [address], * (ABNORMAL) CBC Auto Differential (03/07/2025 5:07 AM EDT) WBC 9.80 3.40 - 10.80 10*3/mm3 03/07/2025 5:34 AM EDT [facility] RBC 2.90(L) 3.77 - 5.28 10*6/mm3 03/07/2025 5:34 AM EDT [facility] Hemoglobin 7.6(L) 12.0 - 15.9 g/dL 03/07/2025 5:34 AM EDT [facility] Hematocrit 24.7(L) 34.0 - 46.6 % 03/07/2025 5:34 AM EDT [facility] MCV 85.2 79.0 - 97.0 fL 03/07/2025 5:34 AM EDT [facility] MCH 26.2(L) 26.6 - 33.0 pg 03/07/2025 5:34 AM EDT [facility] MCHC 30.8(L) 31.5 - 35.7 g/dL 03/07/2025 5:34 AM [facility] RDW 15.0 12.3 - 15.4 % 03/07/2025 5:[facility] RDW-SD 46.5 37.0 - 54.0 fl 03/07/2025 5:34 AM [facility] MPV 11.9 6.0 - 12.0 fL 03/07/2025 5:34 [facility] Platelets 210 140 - 450 10*3/mm3 03/07/2025 5:34 AM [facility] Neutrophil % 67.5 42.7 - 76.0 % 03/07/2025 5:34 AM [facility] Lymphocyte % 21.3 19.6 - 45.3 % 03/07/2025 5:34 AM [facility] Monocyte % 5.8 5.0 - 12.0 % 03/07/2025 5:34 AM [facility] Eosinophil % 0.9 0.3 - 6.2 % 03/07/2025 5:34 AM [facility] Basophil % 0.4 0.0 - 1.5 % 03/07/2025 5:34 AM [facility] Immature Grans % 4.1(H) 0.0 - 0.5 % 03/07/2025 5:34 AM [facility] Neutrophils, Absolute 6.61 1.70 - 7.00 10*3/mm3 03/07/2025 5:34 AM [facility] Lymphocytes, Absolute 2.09 0.70 - 3.10 10*3/mm3 03/07/2025 5:34 AM [facility] Monocytes, Absolute 0.57 0.10 - 0.90 10*3/mm3 03/07/2025 5:34 AM [facility] Eosinophils, Absolute 0.09 0.00 - 0.40 10*3/mm3 03/07/2025 5:34 AM EDT [facility] Basophils, Absolute 0.04 0.00 - 0.20 10*3/mm3 03/07/2025 5:34 AM EDT [facility] Immature Grans, Absolute 0.40(H) 0.00 - 0.05 10*3/mm3 03/07/2025 5:34 AM EDT [facility] nRBC 0.3(H) 0.0 - 0.2 /100 WBC 03/07/2025 5:34 AM EDT [facility] Blood Venipuncture / Unknown 03/07/2025 5:07 AM EDT 03/07/2025 5:16 AM EDT Aydin Crowe MD LAB BLOOD ORDERABLES Final Resu lt [facility]
[address] [place] [address], * Tissue Pathology Exam (03/06/2025 5:50 AM EDT) Case Report Surgical Pathology Report Case: [id number] Authorizing Provider: Aydin Crowe MD Collected: 03/06/2025 05:50 AM Ordering Location: [facility] Received: 03/06/2025 06:11 AM LABOR DELIVERY Pathologist: Shilpa Rascon MD Specimen: Placenta, Placenta, 37 weeks IUGR, hypertension 03/07/2025 11:25 AM EDT [facility] Clinical Information 37 weeks, IUGR, hypertension 03/07/2025 11:25 AM EDT [facility] Final Diagnosis Placenta, vaginal delivery: Mature placental parenchyma with increased perivillous and subchorionic fibrin deposition Three-vessel umbilical cord 03/07/2025 11:25 AM EDT [facility] at 1125 EDT Gross Description 1. [...] spongy parenchyma with no gross lesions identified. Wireless Development Manager sections are submitted as follows: 1A-umbilical cord with false knot and membrane roll 9L-kvas-clepkgakf disc with subchorionic fibrin 2A-vqee-acuphvamm disc at cord insertion site. LDP 03/07/2025 11:25 AM EDT [facility] Microscopic Description The slides are reviewed and demonstrate histopathologic features supporting the above rendered diagnosis. 03/07/2025 11:25 AM EDT [facility] Tissue Placental structure / Unknown Collection / Unknown 03/06/2025 5:50 AM EDT 03/06/2025 6:11 AM EDT Aydin Crowe MD PATHOLOGY/CYTOLOGY ORDERABLES F inal Result [facility]
[address] [place] [address], * (ABNORMAL) Protein / Creatinine Ratio, Urine - Urine, Clean Catch (03/06/2025 1:19 AM EDT) Protein/Creati nine Ratio, Urine 399.3(H) 0.0 - 200.0 mg/G Crea 03/06/2025 9:31 AM EDT [facility] Creatinine, Urine 108.2 mg/dL 03/06/2025 9:31 AM EDT [facility] Total Protein, Urine 43.2 mg/dL 03/06/2025 9:31 AM EDT [facility] Urine Urine specimen obtained by clean catch procedure / Unknown Collection / Unknown 03/06/2025 1:19 AM EDT 03/06/2025 1:19 AM EDT Aydin Crowe MD URINE ORDERABLES Final Result [facility]
[address] [address], * (ABNORMAL) CBC (No Diff) (03/06/2025 1:14 AM EDT) WBC 11.53(H) 3.40 - 10.80 10*3/mm3 03/06/2025 1:20 AM EDT [facility] RBC 3.57(L) 3.77 - 5.28 10*6/mm3 03/06/2025 1:20 AM EDT [facility] Hemoglobin 9.0(L) 12.0 - 15.9 g/dL 03/06/2025 1:20 AM EDT [facility] Hematocrit 29.6(L) 34.0 - 46.6 % 03/06/2025 1:20 AM EDT [facility] MCV 82.9 79.0 - 97.0 fL 03/06/2025 1:20 AM EDT [facility] MCH 25.2(L) 26.6 - 33.0 pg 03/06/2025 1:20 AM EDT [facility] MCHC 30.4(L) 31.5 - 35.7 g/dL 03/06/2025 1:20 AM EDT [facility] RDW 15.2 12.3 - 15.4 % 03/06/2025 1:20 AM EDT [facility] RDW-SD 46.0 37.0 - 54.0 fl 03/06/2025 1:20 AM EDT [facility] MPV 11.7 6.0 - 12.0 fL 03/06/2025 1:20 AM EDT [facility] Platelets 269 140 - 450 10*3/mm3 03/06/2025 1:20 AM EDT [facility] Blood Venipuncture / Unknown 03/06/2025 1:14 AM EDT 03/06/2025 1:14 AM EDT us Aydin Crowe MD LAB BLOOD ORDERABLES Final Resu lt Performing Organization Address [facility] Co de Phone Number [facility]
[address] [place] [address], * (ABNORMAL) Ferritin (03/06/2025 1:11 AM EDT) Ferritin 7.88(L) 13.00 - 150.00 ng/mL 03/06/2025 6:36 AM EDT [facility] Blood Venipuncture / Unknown 03/06/2025 1:11 AM EDT 03/06/2025 2:53 AM EDT Narrative [facility] - 03/06/2025 6:36 AM EDT Results may be falsely decreased if patient taking Biotin. us Aydin Crowe MD LAB BLOOD ORDERABLES Final Resu lt Performing Organization Address [facility] de Phone Number [facility]
[address] [place] [address], * (ABNORMAL) Iron Profile w/o Ferritin (03/06/2025 1:11 AM EDT) Iron 54 37 - 145 mcg/dL 03/06/2025 6:36 AM EDT [facility] Iron Saturation (TSAT) 8(L) 20 - 50 % 03/06/2025 6:36 AM EDT [facility] Transferrin 482(H) 200 - 360 mg/dL 03/06/2025 6:36 AM EDT [facility] TIBC 718(H) 298 - 536 mcg/dL 03/06/2025 6:36 AM EDT [facility] Blood Venipuncture / Unknown 03/06/2025 1:11 AM EDT 03/06/2025 2:53 AM EDT Aydin Crowe MD LAB BLOOD ORDERABLES Final Resu lt [facility]
[address] [place] [address], * (ABNORMAL) Comprehensive Metabolic Panel (03/06/2025 1:11 AM EDT) Pathologist [facility] Glucose 84 65 - 99 mg/dL 03/06/2025 3:12 AM EDT [facility] BUN 8.9 6.0 - 20.0 mg/dL 03/06/2025 3:12 AM EDT [facility] Creatinine 0.87 0.57 - 1.00 mg/dL 03/06/2025 3:12 AM EDT [facility] Sodium 137 136 - 145 mmol/L 03/06/2025 3:12 AM EDT [facility] Potassium 4.0 3.5 - 5.2 mmol/L 03/06/2025 3:12 AM EDT [facility] Chloride 106 98 - 107 mmol/L 03/06/2025 3:12 AM EDT [facility] CO2 18.4(L) 22.0 - 29.0 mmol/L 03/06/2025 3:12 AM EDT [facility] Calcium 8.7 8.6 - 10.5 mg/dL 03/06/2025 3:12 AM EDT [facility] Total Protein 6.3 6.0 - 8.5 g/dL 03/06/2025 3:12 AM EDT [facility] Albumin 3.4(L) 3.5 - 5.2 g/dL 03/06/2025 3:12 AM EDT [facility] ALT (SGPT) 22 1 - 33 U/L 03/06/2025 3:12 AM EDT [facility] AST (SGOT) 16 1 - 32 U/L 03/06/2025 3:12 AM EDT [facility] Alkaline Phosphatase 113 39 - 117 U/L 03/06/2025 3:12 AM EDT [facility] Total Bilirubin 0.7 0.0 - 1.2 mg/dL 03/06/2025 3:12 AM EDT [facility] Globulin 2.9 gm/dL 03/06/2025 3:12 AM EDT [facility] Comment:Calculated Result A/G Ratio 1.2 g/dL 03/06/2025 3:12 AM EDT [facility] BUN/Creatinine Ratio 10.2 7.0 - 25.0 03/06/2025 3:12 AM EDT [facility] Anion Gap 12.6 5.0 - 15.0 mmol/L 03/06/2025 3:12 AM EDT [facility] eGFR 95.6 >60.0 mL/min/1.7 3 03/06/2025 3:12 AM EDT [facility] Blood Venipuncture / Unknown 03/06/2025 1:11 AM EDT 03/06/2025 2:53 AM EDT [facility] - 03/06/2025 3:12 AM EDT GFR [...] MD LAB BLOOD ORDERABLES Final Resu lt [facility]
[address] [place] [address], * (ABNORMAL) Uric Acid (03/06/2025 1:11 AM EDT) Pathologist [facility] Uric Acid 6.6(H) 2.4 - 5.7 mg/dL 03/06/2025 3:12 AM EDT [facility] Comment:Falsely depressed re sults may occur on samples drawn from patients receiving N-Acetylcysteine (NAC) or Metamizole. Blood Venipuncture / Unknown 03/06/2025 1:11 AM EDT 03/06/2025 2:53 AM EDT us Aydin Crowe MD LAB BLOOD ORDERABLES Final Resu lt Performing Organization Address [facility]/ZIP Co de Phone Number [facility]
[address] [place] [address], * Lactate Dehydrogenase (03/06/2025 1:11 AM EDT) [facility] LDH 187 135 - 214 U/L 03/06/2025 3:12 AM EDT [facility] Blood Venipuncture / Unknown 03/06/2025 1:11 AM EDT 03/06/2025 2:53 AM EDT Aydin Crowe MD LAB BLOOD ORDERABLES Final Resu lt Performing Organization Address [facility] Co de Phone Number [facility]
[address] [place] [address], * Treponema pallidum AB w/Reflex RPR (03/06/2025 1:11 AM EDT) [facility] Treponemal AB Total Non-Reacti ve Non-React ramya 03/06/2025 1:42 PM EDT [facility] Blood Venipuncture / Unknown 03/06/2025 1:11 AM EDT 03/06/2025 1:11 AM EDT Narrative [facility] - 03/06/2025 1:42 PM EDT Reactive results will reflex RPR testing. us Aydin Crowe MD LAB BLOOD ORDERABLES Final Resu lt Performing Organization Address City/[facility]/ZIP Co de Phone Number [facility]
[address] [place] [id number], * Type & Screen (03/06/2025 1:03 AM EDT) ABO Type A 03/06/2025 1:37 AM EDT [facility] RH type Positive 03/06/2025 1:37 AM EDT [facility] Antibody Screen Negative 03/06/2025 1:37 AM EDT [facility] T&S Expiration Date 03/09/2025 11:59:59 PM 03/06/2025 1:37 AM EDT [facility] Blood Venipuncture / Unknown 03/06/2025 1:03 AM EDT 03/06/2025 1:03 AM EDT us Aydin Crowe MD BLOOD BANK TEST ORDERABLES Edit ed Result - Final Performing Organization Address [facility] Co de Phone Number [facility]
[address] [place] [address], documented in this encounter Visit Diagnoses Diagnosis [...] at 0756, For 1 dose, Group 2 ([place]) Hazardous Drug - Reproductive Risk Only - See Handling Guide miSOPROStol (CYTOTEC) tablet 800 mcg 800 mcg, Rectal, Once As Needed, Hemorrhage, Starting on Thu03/06/25 at 0756, For 1 dose, Group 2 ([place]) Hazardous Drug - Reproductive Risk Only - [...] restarted at the initial dose. Group 2 ([place]) Hazardous Drug - Reproductive Risk Only - [...] Patient/family refused) 0915 (Not Given - Provider: Jennifre King RN - Reason: Patient/family refused)2017 (Not [...] that bag to avoid waste. Group 2 ([place]) Hazardous Drug - Reproductive Risk Only - [...] restarted at the initial dose. Group 2 ([place]) Hazardous Drug - Reproductive Risk Only - [...] at 0756, For 1 dose, Group 2 ([place]) Hazardous Drug - Reproductive Risk Only - See Handling Guide miSOPROStol (CYTOTEC) tablet 800 mcg 800 mcg, Rectal, Once As Needed, Hemorrhage, Starting on Thu03/06/25 at 0756, For 1 dose, Group 2 ([place]) Hazardous Drug - Reproductive Risk Only - [...] an additional bag (2 total). Group 2 ([place]) Hazardous Drug - Reproductive Risk Only - [...] that bag to avoid waste. Group 2 ([place]) Hazardous Drug - Reproductive Risk Only - See Handling Guide Followed by oxytocin (PITOCIN) 30 units in 0.9% sodium chloride 500 mL (premix) () 250 mL/hr, Intravenous, Continuous, Starting on Thu03/06/25 at 0900, For 1 hour, Infuse at 250 ml/hr for remaining volume in bag. Group 2 ([place]) Hazardous Drug - Reproductive Risk Only - [...] 5-8 documented in this encounter Care Teams Trip Follower Relationship Specialty Start Date End Date Jefe Schwartz MD [address] [facility] [address] [place] [address] PCP - General Adolescent Medicine 12/14/23 documented as of this encounter
--- OUTSIDE RECORDS SUMMARY | 2025-03-06 05:06 | XMS_ITS | Encounter Summary ---
Author Organization [facility] Address [address] [place] [id number] Care Team Providers Care Capital Project Engineer Name Role Phone Jefe Schwartz MD Primary Care Provider [phone] Reason for Visit * Auth/Cert (Routine) Specialty Diagnoses / Procedures Referred By Contac t Referred To Contact Diagnoses Chronic hypertension in obstetric context, third trimester Referral ID Status Reason Start Date Expiration Date Visits Re quested Visits Authorized [id number] 1 1 Encounter Details Date Type Department Care Team (Late st Contact Info) Description 03/06/2025 5:06 AM EDT Anesthesia Event [facility] LABOR DELIVERY [address] [facility] [place] [phone] Mami Balbuena MD 7625 [facility] [address] [place] [address] Anesthesia Record Procedure Summary Procedure Name Responsible [...] drink = 0.6 oz pur e alcohol) [facility] Utilities Answer Date Recorded In the past 12 months has [employer], gas, oil, or water [employer] threatened to shut off services in your [...] and heating? Not hard at all 03/06/2025 [facility] [place] of Occupat ional Health - Occupational Stress [...] things needed for daily living? No 03/06/2025 [place] Depression Scale Answer Date Recorded [place] Depression Scale Total 8 03/06/2025 The thought [...] GED or equivalent No 03/06/2025 Preferred Language Namibian 03/06/2025 PHQ-2 Answer Date Recorded Patient Health [...] 03/06/2025 12:42 AM Chelsy Chan RN * [place] Suicide Severity Rating Scale (Screener/Recent Self-Report) Question [...] evaluation and timeout performed Prep: Pt Position:sitting Accounting System Expert:cap, gloves, sterile barrier, mask and gown Prep:chlorhexidine [...] sounds: normal. 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 ROS ROS/Med Hx [...] Info) Description 04/17/2025 1:40 PM EDT Visit [facility] OBGYN 1700 [facility] [address] [place] [phone] Aydin Crowe MD 1700 [facility] [address] [place] [address] documented as of this encounter Procedures Procedure [...] evaluation and timeout performed Prep: Pt Position:sitting Accounting System Expert:cap, gloves, sterile barrier, mask and gown Prep:chlorhexidine [...] Rate Site Lidocaine-EPINEPHrine (PF) (XYLOCAINE W/EPI) 1.5 %-1:114979 injection Epidural, As Needed, Starting on Thu03/06/25 at 0519 Given 03/06/2025 5:19 AM EDT 3 mL ropivacaine (NAROPIN) 0.5 % 5 mL in sodium chloride 0.9 % 5 mL epidural Epidural, Continuous PRN, Starting on Thu03/06/25 at 0523 Bolus 03/06/2025 5:25 AM EDT 5 mL New Bag 03/06/2025 5:23 AM EDT 5 mL documented in this encounter Care Teams Capital Project Engineer Relationship Specialty Start Date End Date Jefe Shcwartz MD 1210 [facility] [address] [facility] [address] [place] [address] PCP - General Adolescent Medicine 12/14/23 documented as of this encounter
[2025-04-03 10:22] VITALS: BP 121/48; PULSE 66; RESP 18; O2SAT 99
[2025-04-03] MEDS: IRON SUCROSE COMPLEX 200 MG in 0.9 % SODIUM CHLORIDE 100 ML 220 MG IV (10:22)
[2025-04-03] MEDS: 0.9 % SODIUM CHLORIDE 50 ML 100 ML IV (10:22)
--- OUTSIDE RECORDS SUMMARY | 2025-04-03 10:24 | XMS_ITS | Clinical Summary ---
Author Organization [facility] ([place], [place], [place], [place]) Address [address] [place] [address] Care Team Providers Care Broom Man Name Role Phone Unavailable Primary Care Provider Unavailabl e Allergies No known active allergies Medications metoprolol succinate (TOPROL-XL) 50 MG 24 hr tablet Take 1 tablet (50 mg total) by mouth daily. Active cholecalciferol, vitamin D3, 2,000 unit Tab Take 1 tablet (2,000 Units total) by mouth daily. 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 Family History Medical History Relation Name Comments Arthritis Father Heart disease Father Hypertension Father Arthritis Mother Asthma Mother Atrial fibrillation Mother Diabetes Mother Diabetes Sister Relation Name Status Comments Father Mother Sister Social History Tobacco Use Types Packs/Day Years Used Date Smoking Tobacco: Never Smokeless Tobacco: Never Tobacco Cessation:Counseling Given: Not Answered Alcohol Use Standard Drinks/Week Comments Never 0 (1 standard drink = 0.6 oz pur e alcohol) Comments Unknown Sex and Gender Information Value Date Recorded Sex Assigned at Female 02/04/2022 8:28 PM CDT Legal Sex Female 8:28 PM CDT Gender Identity Female 02/04/2022 8:28 PM CDT Sexual Orientation Not on file Plan of Treatment Not on file
--- OUTSIDE RECORDS SUMMARY | 2025-04-03 10:26 | XMS_ITS | Encounter Summary ---
Author Organization [facility] Address [address] [place] [address] Care Team Providers Care Line Producer Name Role Phone Jefe Schwartz MD Primary Care Provider [phone] Encounter Details Date Type Department Care Team (Latest Contact Info) Description 02/09/2025 Travel Social History Tobacco Use Types Packs/Day Years Used Date Smoking Tobacco: Former Cigarettes Q uit: 01/2024 Smokeless Tobacco: Never Comments:Vape. Alcohol Use Standard Drinks/Week Comments Never 0 (1 standard drink = 0.6 oz pur e alcohol) [facility] Utilities Answer Date Recorded In the past 12 months has [employer], gas, oil, or water company threatened [...] and heating? Not hard at all 01/23/2025 [facility] [place] of Occupat ional Health - Occupational Stress [...] things needed for daily living? No 01/23/2025 [place] Depression Scale Answer Date Recorded Retired [employer] Depression Score 11 02/23/2024 Retired EPD Scale: [...] GED or equivalent No 01/23/2025 Preferred Language Malagasy 01/23/2025 PHQ-2 Answer Date Recorded Patient Health [...] Visit [facility] OBGYN [address] [facility] [address] [place] [address] Aydin Crowe MD 1700 [facility] [address] [place] [address] documented as of this encounter Visit Diagnoses Not on filedocumented in this encounter Care Teams Line Producer Relationship Specialty Start Date End Date Jefe Schwartz MD 1210 [facility] [address] [place] [address] PCP - General Adolescent Medicine 12/14/23 documented as of this encounter
--- OUTSIDE RECORDS SUMMARY | 2025-04-03 10:26 | XMS_ITS | Clinical Summary ---
Author Organization Healthcare Address [address] [place] [address] Care Team Providers Care Relocation Services Specialist Name Role Phone System, Provider Not In MD Primary Care Provider Unavailable Allergies Active Allergy Reactions Criticality Noted Date Comments Fentanyl Other - please docum ent in the comment field Low 10/26/2023 Pt gets mean Medications ASPIRIN 81 MG chewable tablet Chew 1 tablet (81 mg) 1 (one) time each day. 09/14/2024 Active vitamin (Prenatabs Rx) 29-1 MG tablet Take 1 tablet by mouth 1 (one) time each day. 07/25/2024 Active NIFEdipine (Procardia) 10 MG immediate release capsule Take 1 capsule by mouth. 12/29/2024 Active Active Problems Problem Noted Date Diagnosed Date Class III obesity with body mass index (BMI) of 40.0 or higher 01/12/2025 Proteinuria complicating , unspecified trimester 01/12/2025 Positive SHANTI (antinuclear antibody) 01/12/2025 Elevated uric acid in blood 01/12/2025 Pustular psoriasis 01/12/2025 Primary hypertension 01/12/2025 Encounters Date Type Department Care Team Description 02/13/2025 Community Orders Community Practice [address] [place] [address] Izaiah Mcdaniels MD Proteinuria complicating , unspecified trimester (Primary Dx) 01/11/2025 3:40 PM EDT Office Visit [facility] Nephrology, Bone & Mineral Metabolism [address] [facility] [address], [address] [place] [address] Duke White MD Proteinuria complicating , unspecified trimester (Primary Dx); Positive SHANTI (antinuclear antibody); Elevated uric acid in blood; Pustular psoriasis; Primary hypertension 01/11/2025 Travel 01/04/2025 Travel from Last 3 Months Family History Medical History Relation Name Comments Diabetes Father Sister Hypertension Father Sister Diabetes Father's Brother Jose E Diabetes Sister Annette Relation Name Status Comments Father Sister Father's Brother Jose E Sister Annette Alive Social History Tobacco Use Types Packs/Day Years Used Date Smoking Tobacco: Former Cigarettes Q uit: 2021 Passive Smoke Exposure: Past Smokeless Tobacco: Never Tobacco Cessation:Counseling Given: Not Answered Alcohol Use Standard Drinks/Week Comments Never 0 (1 standard drink = 0.6 oz pur e alcohol) PHQ-2 Answer Date Recorded Patient Health Questionnaire-2 Score 0 10/20/2024 Comments Unknown Sex and Gender Information Value Date Recorded Sex Assigned at Not on file Legal Sex Female 8:12 AM EST Gender Identity Not on file Sexual Orientation Not on file Last Filed Vital Signs Vital Sign Reading Time Taken Comments Blood Pressure 121/80 01/11/2025 3:56 PM EDT Pulse 112 01/11/2025 3:56 PM EDT Temperature 36.7 C (98.1 F) 01/11/2025 3:56 PM EDT Respiratory Rate 16 01/11/2025 3:56 PM EDT Oxygen Saturation 98% 01/11/2025 3:56 PM EDT Inhaled Oxygen Concentration - - Weight 122 kg (268 lb 12.8 oz) 01/11/2025 3:56 P M EDT per pt Height 165.1 cm (5' 5 ) 01/11/2025 3:56 PM EDT p er pt Body Mass Index 44.73 01/11/2025 3:56 PM EDT Plan of Treatment Upcoming Encounters Date Type Department Care Team (Late st Contact Info) Description 06/30/2025 1:20 PM EST Office Visit [facility] [address] [place] [address] Duke White MD [address] [place] [phone] Health Maintenance Due Date Last Done Comments [facility]-Infant/Child/Adol SDOH Screenings 2000 [facility]-Varicella Vaccines (2 of 2 - 2-dose childhood series) 06/09/2005 03/17/2005 HPV Vaccines (1 - 3-dose series) 2015 [facility]- SDOH Screenings 2018 [facility]-Adult SDOH Screenings 2018 [facility]SN-OWEPY-38 Vaccine (4 - season) 2024 05/22/2021, 09/12/2020, 08/22/2020 [facility]-Influenza Vaccine (#1) 2025 05/10/2018 [facility]-Depression Screening 10/20/2025 10/20/2024 [facility]-Pap Smear 08/17/2027 08/17/2024 [facility]-DTaP,Tdap,and Td Vaccines (7 - Td or Tdap) 01/11/2035 01/11/2025, 10/13/2023, 01/19/2006, Additional history exists [facility]-Zoster Vaccines (1 of 2) 2050 03/17/2005 [facility]-HIB Vaccines Completed 03/17/2005, , 08/31/2001 [facility]-Hepatitis B Vaccines Completed 005, 03/02/2001, 2000 [facility]-IPV Vaccines Completed 05/19/2005, 03/2005, 10/29/2001, Additional history exists [facility]-HIV Screening Completed 10/06/2024 [facility]-Hepatitis C Screening Completed 10/06/2024, [facility]-Obesity Intervention Completed 025, 10/20/2024, 10/06/2024, Additional history exists [facility]-Hepatitis A Vaccines Aged Out No longer eligible based on patient's age to complete this topic [facility]-Pneumococcal Vaccine: Pediatrics (0 to 5 Years) and At-Risk Patients (6 to 49 Years) Aged Out No longer eligible based on patient's age to complete this topic [facility]-Rotavirus Vaccines Aged Out No lo nger eligible based on patient's age to complete this topic Procedures Procedure Name Priority Date/Time Associated Diagnosis Comments ACUTE HEPATITIS PANEL Routine 10/06/2024 3:25 PM EST Proteinuria complicating , unspecified trimester HIV 1/2 ANTIBODY/ANTIGEN SCREEN WITH REFLEX TO HIV I/II DIFFERENTIATION Routine 10/06/2024 3:25 PM EST Proteinuria complicating , unspecified trimester from Last 3 Months or Most Recently Relevant to Health Maintenance Results * HIV 1 & 2 Antibody/Antigen Screen (10/06/2024 3:25 PM EST) HIV 1 & 2 Antibody/Antigen Screen Non Reactive Non Reactive 10/06/2024 6:03 PM EST [facility] Comment:Screening for HIV 1 & 2 antibodies, and P24 antigen is NONREACTIVE. No confirmatory testing is required. Blood Venous blood specimen / Unknown Venipuncture / Unknown 10/06/2024 3:25 PM EST 10/06/2024 3:25 PM EST us Aston Meyer MD LAB BLOOD ORDERABLES Final Resul t Performing Organization Address City/[facility]/ZIP Co de Phone Number [facility] [address] [place] [address] * Acute Hepatitis Panel (10/06/2024 3:25 PM EST) Hepatitis B Surf Antigen Negative Negative 10/06/2024 7:03 PM EST [facility] Hepatitis C Antibody Negative Negative 10/06/2024 7:03 PM EST [facility] Hepatitis A Antibody IgM Negative Negative 10/06/2024 7:03 PM EST [facility] Hepatitis B Core Antibody IgM Negative Negative 10/06/2024 7:03 PM EST [facility] Blood Venous blood specimen / Unknown Venipuncture / Unknown 10/06/2024 3:25 PM EST 10/06/2024 3:25 PM EST us Aston Meyer MD LAB BLOOD ORDERABLES Final Resul t Performing Organization Address City/[facility] Co de Phone Number [facility] [address] [place] [address] from Last 3 Months or Most Recently Relevant to Health Maintenance Insurance [place] [address] [employer] [facility] MEDICAID [facility] Care Teams Relocation Services Specialist Relationship Specialty Start Date End Date System, Provider Not In, [address] [place] [address] PCP - General Family Medicine 09/29/24
--- OUTSIDE RECORDS SUMMARY | 2025-04-03 10:26 | XMS_ITS | Encounter Summary ---
Author Organization [employer] ([place], [place], [place], [place]) Address [address] [place] [address] Care Team Providers Care Public Safety Officer Name Role Phone Unavailable Primary Care Provider Unavailabl e Encounter Details Date Type Department Care Team (Late st Contact Info) Description 10/15/[address] [facility] Family Medicine [address] [place] [address] ProviderFeroz MD [address] [place], [place] [address] Social History Tobacco Use Types Packs/Day Years Used Date Smoking Tobacco: Never Assessed Comments Unknown Sex and Gender Information Value Date Recorded Sex Assigned at Female 02/04/2022 8:28 PM CDT Legal Sex Female 8:28 PM CDT Gender Identity Female 02/04/2022 8:28 PM CDT Sexual Orientation Not on file documented as of this encounter Miscellaneous Notes * Cerner Conversion Note - Feroz ProviderMD - 10/15/2018 4:42 PM ONCOLOGY CONSULTANT Nursing Discharge Summary Entered On: 10/15/2018 16:43 EST Performed On: 10/15/2018 16:42 EST by RYAN QUINTERO mechanic driver Documentation Patient Disposition, General : Discharge Discharge To : Home with ambulatory/outpatient follow-up Mode Of Departure, General Discharge : Private vehicle Accompanied By, Discharge : Grandparent IV Discontinued : Yes Personal Belongings With Patient : Yes Teaching Method : Demonstration, Explanation Teaching Evaluation : Returns demonstration, Verbalizes understanding RYAN QUINTERO RN - 10/15/2018 16:42 EST Electronically signed by Kateryna [facility] Conversion Director Of Golf Cerner at 11/25/2022 5:03 PM CDT documented in this encounter Plan of Treatment Not on file documented as of this encounter Visit Diagnoses Not on filedocumented in this encounter
--- OUTSIDE RECORDS SUMMARY | 2025-04-03 10:26 | XMS_ITS | Encounter Summary ---
Author Organization [employer] ([place], [place], [place], [place]) Address [address] [place] [address] Care Team Providers Care Packaging Materials Inspector Name Role Phone Unavailable Primary Care Provider Unavailabl e Encounter Details Date Type Department Care Team (Late st Contact Info) Description 10/15/2018 Transcribed Document [facility] Family Medicine [address] [place] [address] ProviderFeroz MD [address] [place], [place] [id number] Social History Tobacco Use Types Packs/Day Years [...] Conversion Note - Feroz ProviderMD - 10/15/2018 7:32 AM WORM RAISER Pre Procedure Adult Entered On: 10/15/2018 7:38 EST Performed On: 10/15/2018 7:32 EST by DILMA WHELAN RN Height and Weight, Clinical Dosing Height Source : Stated Height Entry Format : [place] Height, Feet : 0 ft(Converted to: 0 cm, 0 Inch) Height, Inches : 65 Inch(Converted to: 5 ft 5 Inch, 165.10 cm) Clinical Height : 165.1 cm Weight Source : Standing scale Weight Entry Format : [place] Clinical Dosing Weight : 103.64 kg Weight, Pounds : 228 lb Body Surface Area (BSA) : 2.09 m2 Body Mass Index : 38 kg/m2 (HI) [place] Body Weight : 57 kg DILMA WHELAN RN - 10/15/2018 7:32 EST Health Histories Smoking Status : Never (less than 100 in lifetime; none in last 30 days) Smokeless Tobacco Status : Never DILMA WHELAN RN - 10/15/2018 7:32 EST Social History (As Of: 10/15/2018 07:38:09 EST) Tobacco: Never (less than 100 in lifetime) Smoking Status. (Last Updated: 10/15/2018 07:33:15 EST by DILMA WHELAN, RN) Alcohol: Alcohol Use History No. (Last Updated: 10/15/2018 07:33:19 EST by DILMA WHELAN, RN) Substance Abuse: Drug Use Hx: No. Use in Last 12 Months: No. (Last Updated: 10/15/2018 07:33:23 EST by DILMA WHELAN, RN) Infectious Disease History Infectious Disease History : Influenza Fever/Chills Last 48 Hours : No Travel To Regions with Travel Advisories : No Travel Outside [place] Within Last 30 Days : No Contact With Traveler to Advisory Region : No Tuberculosis Symptoms : None DILMA WHELAN RN - 10/15/2018 7:32 EST Anesthesia/Transfusion History Family History of Anesthesia Reaction : No prior transfusion(s) Blood Transfusion Acceptable to Patient : Yes Transfusion History : No prior anesthesia Family History of Anesthesia Reaction : Other: mom - has nausea- narcotics/ nausea and vomiting with anesthesia DILMA WHELAN RN - 10/15/2018 7:32 EST Functional Assessment Living Situation : Other: with mom and dad Current Home Treatments : None DILMA WHELAN RN - 10/15/2018 7:32 EST Psychosocial History Does Someone Depend on You for Care? : No Currently in Unsafe Situation : No Tried to Harm Yourself in the Past? : No Thoughts of Harming/Killing Yourself : No DILMA WHELAN RN - 10/15/2018 7:32 EST Advance Directive Patient has Advance Directive *Q : No, patient refuses Advance Directive information DILMA WHELAN RN - 10/15/2018 7:32 EST Teaching/Learning Assessment Barriers To Learning : None evident Learning Style Preferences Patient : Verbal explanation Learning Style Preferences Family : Verbal explanation DILMA WHELAN RN - 10/15/2018 7:32 EST Education Topics, Periop Preadmission Perioperative Education Grid IV's : Verbalizes understanding DILMA WHELAN RN - 10/15/2018 7:32 EST General Info Want Family/Rep/Phys Notified of Admit : No Emergency Contact #1 : Aravind kohler - [phone] Emergency Contact #1 Phone Number : - Emergency Contact #1 Relationship : - Emergency Contact #2 : - Emergency Contact #2 Phone Number : - Emergency Contact #2 Relationship : - Primary Language : German Communication Barrier : None DILMA WHELAN RN - 10/15/2018 7:32 EST Vital Measurements Temperature Source : Oral Temperature Mode : Fahrenheit Temperature, Fahrenheit : 97.2 Deg F Clinical Temperature, C : 36.2 Deg C Peripheral Pulse Rate : 78 bpm Respiratory Rate : 20 Breaths/Min Systolic Blood Pressure : 131 mmHg Diastolic Blood Pressure : 62 mmHg Vital Measurements Comment : sat - 100 percent DILMA WHELAN RN - 10/15/2018 7:32 EST Sleep Apnea Risk Assmt Hx of Obstructive Sleep Apnea Diagnosis : No Snore Loudly : No Tired, Fatigued, or Sleepy During Day : No Observed Stopping Breathing During Sleep : No Have/Are Being Treated for Hypertension : No STOP Sleep Apnea Risk Level Score : 0 STOP Sleep Apnea Risk Level : Low BMI Greater Than 35 kg/m2 : Yes Age over 50 Years Old : No Gender Male : No Neck Circumference Measured (cms) : 37 cm STOP-BANG Sleep Apnea Risk Level Score : 1 Neck Circumference Greater Than 40 cm : No DILMA WHELAN RN - 10/15/2018 7:32 EST Navarro Scale Navarro Sensory Perception : No impairment Navarro Moisture : Rarely moist Navarro Activity : Walks frequently Navarro Mobility : No limitation Navarro Nutrition : Adequate Navarro Friction and Shear : No apparent problem Navarro Score : 22 DILMA WHELAN RN - 10/15/2018 7:32 EST Oxygen Therapy Oxygen Titrated : No DILMA WHELAN RN - 10/15/2018 7:32 EST Pain Assessment Pain Assessment : Initial assessment Pain Scale Goal : 0 Pain Scl Goal Comment : 0 Pain Scale Used : 0-10 Scale DILMA WHELAN RN - 10/15/2018 7:32 EST Fall Risk Scales ABCs Fall Injury Risk Identification : None CEDILLO Hx Falls Immediate/Within 3 Months : No [place]illo Secondary Diagnosis : No CEDILLO Use of Ambulatory Aid : None CEDILLO IV Therapy or IV Access : No [place] Gait/Transferring : Normal, bedrest, immobile [place] Mental Status : Oriented to own ability [place] Fall Risk Score : 0 CEDILLO Fall Scale Risk Level : 0-24 Low Risk [place] Fall Interventions : Wheels locked DILMA WHELAN RN - 10/15/2018 7:32 EST Education Topics, Day of Surgery DayofSurgery Education Grid IV's : Verbalizes understanding DILMA WHELAN RN - 10/15/2018 7:32 EST Valuables and Belongings Valuables and Belongings : Clothing Clothing : Common streetwear Clothing Disposition : Bedside, Other: no jewelry no valuables DILMA WHELAN RN - 10/15/2018 7:32 EST Pain Scale Intensity : 0 DILMA WHELAN RN - 10/15/2018 7:32 EST Image 4 - Images currently included in the form version of this document have not been included in the text rendition version of the form. Electronically signed by Prema Avendaño Conversion Tumbler Machine Operator Helper Cerner at 11/25/2022 5:20 PM CDT documented in this encounter Plan of Treatment Not on file documented as of this encounter Visit Diagnoses Not on filedocumented in this encounter
--- OUTSIDE RECORDS SUMMARY | 2025-04-03 10:26 | XMS_ITS | Encounter Summary ---
Author Organization [employer] ([place], [place], [place], [place]) Address [address] [place] [address] Care Team Providers Care Control Clerk Subassembly Name Role Phone Unavailable Primary Care Provider Unavailabl e Encounter Details Date Type Department Care Team (Late st Contact Info) Description 10/15/2018 Transcribed Document [facility] [place] [address] [place] [address] ProviderFeroz MD [address] [place], [place] [address] Social History Tobacco Use Types Packs/Day Years Used Date Smoking Tobacco: Never Assessed Comments Unknown Sex and Gender Information Value Date Recorded Sex Assigned at Female 02/04/2022 8:28 PM CDT Legal Sex Female 8:28 PM CDT Gender Identity Female 02/04/2022 8:28 PM CDT Sexual Orientation Not on file documented as of this encounter Miscellaneous Notes * Cerner Conversion Note - Historical ProviderMD - 10/15/2018 7:45 AM BONE CHAR PULLER Event Note Entered On: 10/15/2018 7:46 EST Performed On: 10/15/2018 7:45 EST by DILMA WHELAN RN Event Note Event Location : Other: 0745- Dr fuentes in to expain procedure rpe procedure and urine hct done as ordered/ protocol pre procedure - neg DILMA WHELAN RN - 10/15/2018 7:45 EST documented in this encounter Plan of Treatment Not on file documented as of this encounter Visit Diagnoses Not on filedocumented in this encounter
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
--- OUTSIDE RECORDS SUMMARY | 2025-04-03 10:26 | XMS_ITS | Encounter Summary ---
Author Organization [employer] ([place], [place], [place], [place]) Address [address] [place] [address] Care Team Providers Care Spindle Frame Carver Name Role Phone Unavailable Primary Care Provider Unavailabl e Encounter Details Date Type Department Care Team (Late st Contact Info) Description 10/15/2018 Transcribed Document [facility] [place] Family Medicine [address] [place] [address] ProviderFeroz MD [address], [place] [address] Social History Tobacco Use Types Packs/Day Years [...] Conversion Note - Feroz ProviderMD - 10/15/2018 4:44 PM RESTAURANT GENERAL MANAGER Discharge Instructions Entered On: 10/15/2018 16:45 EST Performed On: 10/15/2018 16:44 EST by RYAN QUINTERO RN DC Instructions HWD Stroke/TIA Discharge Ins : N/A Heart Failure Discharge Ins : N/A Warfarin Discharge Ins : N/A Diet After Discharge : Resume usual diet as tolerated Activity After Discharge : Rest and relax today, No strenuous activities, No heavy lifting over 10 pounds Driving After Discharge : Other: May NOT drive for 24 hours RYAN QUINTERO RN - 10/15/2018 16:44 EST Showering/Bathing : Other: No tub bath or soaking for 5 days. May remove dressings and shower after 24 hours. RYAN QUINTERO RN - 10/15/2018 16:47 EST Electronically signed by Kateryna, [facility] Conversion Spinner Cap Frame Cerner at 11/25/2022 5:17 PM CDT documented in this encounter Plan of Treatment Not on file documented as of this encounter Visit Diagnoses Not on filedocumented in this encounter
--- OUTSIDE RECORDS SUMMARY | 2025-04-03 10:26 | XMS_ITS | Encounter Summary ---
Author Organization [employer] ([place], [place], [place], [place]) Address [address] [place] [address] Care Team Providers Care Bass String Winder Name Role Phone Unavailable Primary Care Provider Unavailabl e Encounter Details Date Type Department Care Team (Late st Contact Info) Description 10/15/2018 Transcribed Document [facility] Family Medicine [address] [place] [address] ProviderFeroz MD [address], [place] [address] Social History Tobacco Use Types Packs/Day Years [...] Conversion Note - Historical ProviderMD - 10/15/2018 2:25 PM TESTING COORDINATOR Event Note Entered On: 10/15/2018 14:25 EST Performed On: 10/15/2018 14:25 EST by DILMA WHELAN, SUKUMAR Event Note Event Location : Other: 1425 - right and left sheath sites wnl. trace drainage on dressing. assessed per Dr fuentes-wnl. DILMA WHELAN, RN - 10/15/2018 14:25 EST Electronically signed by Prema Avendaño Conversion Building And Grounds Supervisor Hitesh at 11/25/2022 5:10 PM CDT documented in this encounter Plan of Treatment Not on file documented as of this encounter Visit Diagnoses Not on filedocumented in this encounter
--- OUTSIDE RECORDS SUMMARY | 2025-04-03 10:26 | XMS_ITS | Encounter Summary ---
[facility] Organization [facility] Address [address] [place] [address] Care Team Providers Care Customer Services Coordinator Name Role Phone Jefe Schwartz MD Primary Care Provider [phone] Encounter Details Date Type Department Care Team (Late st Contact Info) Description 12/26/2024 Results Follow-Up [facility] OBGYN [address] [facility] [address] [place] [phone] Kelly Patricia, MEDICAL EQUIPMENT REPAIRER [address] [facility] [address] [place] [address] Social History Tobacco Use Types Packs/Day Years Used Date Smoking Tobacco: Former Cigarettes Q uit: 01/2024 Smokeless Tobacco: Never Comments:Vape. Alcohol Use Standard Drinks/Week Comments Never 0 (1 standard drink = 0.6 oz pur e alcohol) [facility] Utilities Answer Date Recorded In the past 12 months has [employer], gas, oil, or water [employer] threatened to shut off services in your [...] and heating? Not hard at all 12/30/2024 [facility] - Occupational Stress Questionnaire Answer [...] things needed for daily living? No 12/30/2024 [place] Depression Scale Answer Date Recorded Retired [place] Depression Score 11 02/23/2024 Retired EPD Scale: [...] GED or equivalent No 12/30/2024 Preferred Language Comoran 12/30/2024 PHQ-2 Answer Date Recorded Patient Health [...] Info) Description 04/17/2025 1:40 PM EDT Visit [facility] O[facility]YN [address] [facility] [address] [place] [address] Aydin Crowe MD 1700 [facility] [address] [place] [address] documented as of this encounter Visit Diagnoses Not on filedocumented in this encounter Care Teams Customer Services Coordinator Relationship Specialty Start Date End Date Jefe Schwartz MD 1210 [facility] [address] [place] [address] PCP - General Adolescent Medicine 12/14/23 documented as of this encounter
--- OUTSIDE RECORDS SUMMARY | 2025-04-03 10:26 | XMS_ITS | Encounter Summary ---
[facility] Address [address] [place] [address] Care Team Providers Care Airplane Engineer Name Role Phone Jefe Schwartz MD Primary Care Provider [phone] Encounter Details Date Type Department Care Team (Late st Contact Info) Description 02/07/2025 Results Follow-Up [facility] OBGYN 1700 [facility] [address] [place] [phone] Aydin Crowe MD 1700 [facility] [address] [place] [address] Social History Tobacco Use Types Packs/Day Years Used Date Smoking Tobacco: Former Cigarettes Q uit: 01/2024 Smokeless Tobacco: Never Comments:Vape. Alcohol Use Standard Drinks/Week Comments Never 0 (1 standard drink = 0.6 oz pur e alcohol) [facility] Utilities Answer Date Recorded In the past 12 months has [employer], gas, oil, or water [employer] threatened to shut off services in your [...] and heating? Not hard at all 01/23/2025 [facility] - Occupational Stress Questionnaire Answer [...] things needed for daily living? No 01/23/2025 [place] Depression Scale Answer Date Recorded Retired [place] Depression Score 11 02/23/2024 Retired EPD Scale: [...] GED or equivalent No 01/23/2025 Preferred Language Maltese 01/23/2025 PHQ-2 Answer Date Recorded Patient Health [...] Info) Description 04/17/2025 1:40 PM EDT Visit [facility] OBGYN [address] [phone] Aydin Crowe MD [address] [address] documented as of this encounter Visit Diagnoses Not on filedocumented in this encounter Care Teams Airplane Engineer Relationship Specialty Start Date End Date Jefe Schwartz MD 1210 [facility] [address] [place] [address] PCP - General Adolescent Medicine 12/14/23 documented as of this encounter
--- OUTSIDE RECORDS SUMMARY | 2025-04-03 10:26 | XMS_ITS | Encounter Summary ---
Author Organization [facility] Address [address] [place] [address] Care Team Providers Care Assembler Radio And Electrical Name Role Phone Jefe Schwartz MD Primary Care Provider [phone] Encounter Details Date Type Department Care Team (Latest Contact Info) Description 02/03/2025 Travel Social History Tobacco Use Types Packs/Day Years Used Date Smoking Tobacco: Former Cigarettes Q uit: 01/2024 Smokeless Tobacco: Never Comments:Vape. Alcohol Use Standard Drinks/Week Comments Never 0 (1 standard drink = 0.6 oz pur e alcohol) [facility] Utilities Answer Date Recorded In the past 12 months has [employer], gas, oil, or water company threatened [...] and heating? Not hard at all 01/23/2025 [facility] of Occupat ional Health - Occupational Stress [...] things needed for daily living? No 01/23/2025 [place] Depression Scale Answer Date Recorded Retired [place] Depression Score 11 02/23/2024 Retired EPD Scale: [...] GED or equivalent No 01/23/2025 Preferred Language Gibraltarian 01/23/2025 PHQ-2 Answer Date Recorded Patient Health [...] Info) Description 04/17/2025 1:40 PM EDT Visit [facility] OBGYN 1700 [facility] [address] [place] [address] Aydin Crowe MD 1700 [facility] [address] [place] [address] documented as of this encounter Visit Diagnoses Not on filedocumented in this encounter Care Teams Assembler Radio And Electrical Relationship Specialty Start Date End Date Jefe Schwartz MD 1210 [facility] [address] [place] [address] PCP - General Adolescent Medicine 12/14/23 documented as of this encounter
--- OUTSIDE RECORDS SUMMARY | 2025-04-03 10:26 | XMS_ITS | Encounter Summary ---
Author Organization [employer] ([place], [place], [place], [place]) Address [address] [place] [address] Care Team Providers Care Sock Ironer Name Role Phone Unavailable Primary Care Provider Unavailabl e Encounter Details Date Type Department Care Team (Late st Contact Info) Description 10/15/2018 Transcribed Document [facility] Family Medicine [address] [place] [address] ProviderFeroz MD [address] [place] [address] Social History Tobacco Use Types Packs/Day Years Used Date Smoking Tobacco: Never Assessed Comments Unknown Sex and Gender Information Value Date Recorded Sex Assigned at Female 02/04/2022 8:28 PM CDT Legal Sex Female 8:28 PM CDT Gender Identity Female 02/04/2022 8:28 PM CDT Sexual Orientation Not on file documented as of this encounter Miscellaneous Notes * Cerner Conversion Note - Feroz Richter MD - 10/15/2018 4:48 PM SOIL CHEMIST [address] , [place] [address] Patient Copy Patient Information: Name: SARBJIT RILEY Current Date: 10/15/2018 16:48:56 : 2000 Patient Address: [place] [address] Patient Attending Physician: Primary Care Provider: SHANI LUDWIG MD Primary Care Provider Discharge Diagnosis: Weight on Admission: 228 lb, 0 oz Comment: Follow-up Instructions: With: Address: When: BELA MARQUES [address] [place] [address] Business (1) Within 2 weeks Discharge Instructions: Diet after Discharge: Resume usual diet as tolerated Activity after Discharge: Rest and relax today, No strenuous activities, No heavy lifting over 10 pounds Driving after Discharge: Other: May NOT drive for 24 hours Showering/Bathing:Other: No tub bath or soaking for 5 days. May remove dressings and shower after 24 hours. Immunizations Documented During Stay: No Immunizations Found Heart Failure Discharge Instructions (if any): Stroke Related Discharge Instructions (if any): Warfarin Related Discharge Instructions (if any): Final Medication List: No Medications Documented Patient Allergies: No Known Allergies Medication Instructions: Take your medications faithfully. Do NOT skip medication. Do NOT stop taking medications without the direction of a physician. Carry a list of your medications with you at all times, and take this medication list with you to your first follow up visit. Report any side effects. Avoid herbal remedies unless discussed with your physician. As part of your treatment plan, your physician may have prescribed a limited course of a controlled substance. This medication may be given to help people with moderate or severe pain or for other medical conditions, but there are risks involved with treatment. Common side effects may include nausea, constipation, drowsiness, sweating, itching, dry mouth, and rash. More serious side effects may include cognitive and motor impairment, like problems with thinking, concentrating, alertness, and movement (e.g. slowed reflexes), and driving and operating heavy machinery can be dangerous. It is important for you to talk to your physician if you have these side effects or questions. These controlled substances can produce physical dependence and be habit-forming if taken for an extended period of time, which means that the body has gotten used to them and may experience withdrawal symptoms if they are abruptly stopped. Withdrawal symptoms can include runny nose, sweating, goose bumps, diarrhea, abdominal cramping, rapid heartbeat, difficulty sleeping, and nervousness. Patient education materials: Groin Site Care Refer to this sheet in the next few weeks. These instructions provide you with information on caring for yourself after your procedure. Your caregiver may also give you more specific instructions. Your treatment has been planned according to current medical practices, but problems sometimes occur. Call your caregiver if you have any problems or questions after your procedure. HOME CARE INSTRUCTIONS ? You may shower 24 hours after the procedure. Remove the bandage (dressing ) and gently wash the site with plain soap and water. Gently pat the site dry. ? Do not apply powder or lotion to the site. ? Do not sit in a bathtub, swimming pool, or whirlpool for 5 to 7 days. ? No bending, squatting, or lifting anything over 10 pounds (4.5 kg) as directed by your caregiver. ? Inspect the site at least twice daily. ? Do not drive home if you are discharged the same day of the procedure. Have someone else drive you. ? You may drive 24 hours after the procedure unless otherwise instructed by your caregiver. What to expect: ? Any bruising will usually fade within 1 to 2 weeks. ? Blood that collects in the tissue (hematoma ) may be painful to the touch. It should usually decrease in size and tenderness within 1 to 2 weeks. SEEK IMMEDIATE MEDICAL CARE IF: ? You have unusual pain at the groin site or down the affected leg. ? You have redness, warmth, swelling, or pain at the groin site. ? You have drainage (other than a small amount of blood on the dressing). ? You have chills. ? You have a fever or persistent symptoms for more than 72 hours. ? You have a fever and your symptoms suddenly get worse. ? Your leg becomes pale, cool, tingly, or numb. ? You have heavy bleeding from the site. Hold pressure on the site. Document Released: 08/29/2011 Document Revised: 10/18/2012 Document Reviewed: 08/29/2011 ExitCare? Patient Information ?2014 [employer]. Moderate Conscious Sedation, Adult, Care After These instructions provide you with information about caring for yourself after your procedure. Your health care provider may also give you more specific instructions. Your treatment has been planned according to current medical practices, but problems sometimes occur. Call your health care provider if you have any problems or questions after your procedure. What can I expect after the procedure? After your procedure, it is common: ??? To feel sleepy for several hours. ??? To feel clumsy and have poor balance for several hours. ??? To have poor judgment for several hours. ??? To vomit if you eat too soon. Follow these instructions at home: For at least 24 hours after the procedure: ??? Do not: ? Participate in activities where you could fall or become injured. ? Drive. ? Use heavy machinery. ? Drink alcohol. ? Take sleeping pills or medicines that cause drowsiness. ? Make important decisions or sign legal documents. ? Take care of children on your own. ??? Rest. Eating and drinking ??? Follow the diet recommended by your health care provider. ??? If you vomit: ? Drink water, juice, or soup when you can drink without vomiting. ? Make sure you have little or no nausea before eating solid foods. General instructions ??? Have a responsible adult stay with you until you are awake and alert. ??? Take pvit-akf-pnklxop and prescription medicines only as told by your health care provider. ??? If you smoke, do not smoke without supervision. ??? Keep all follow-up visits as told by your health care provider. This is important. Contact a health care provider if: ??? You keep feeling nauseous or you keep vomiting. ??? You feel light-headed. ??? You develop a rash. ??? You have a fever. Get help right away if: ??? You have trouble breathing. This information is not intended to replace advice given to you by your health care provider. Make sure you discuss any questions you have with your health care provider. Document Released: 05/17/2014 Document Revised: 12/29/2016 Document Reviewed: 11/15/2016 Elsevier Interactive Patient Education ? 2017 [employer] Cardiac Ablation Cardiac ablation is a procedure to stop some heart tissue from causing problems. The heart has many electrical connections. Sometimes these connections cause the heart to beat very fast or irregularly. Removing some of the problem areas can improve heart rhythm or make it normal. Ablation is done for people who: ??? Have Fkfnp-Zdatdlrkv-Dejfe syndrome. ??? Have other fast heart rhythms (tachycardia). ??? Have taken medicines for an abnormal heart rhythm (arrhythmia) and the medicines had: ? No success. ? Side effects. ??? May have a type of heartbeat that could cause . What happens before the procedure? Follow instructions from your doctor about eating and drinking before the procedure. ??? Take your medicines as told by your doctor. Take them at regular times with water unless told differently by your doctor. ??? If you are taking diabetes medicine, ask your doctor how to take it. Ask if there are any special instructions you should follow. Your doctor may change how much insulin you take the day of the procedure. What happens during the procedure? A special type of X-ray will be used. The X-ray helps your doctor see images of your heart during the procedure. ??? A small cut (incision) will be made in your neck or groin. ??? An IV tube will be started before the procedure begins. ??? You will be given a numbing medicine (anesthetic) or a medicine to help you relax (sedative). ??? The skin on your neck or groin will be numbed. ??? A needle will be put into a large vein in your neck or groin. ??? A thin, flexible tube (catheter) will be put in to reach your heart. ??? A dye will be put in the tube. The dye will show up on X-rays. It will help your doctor see the area of the heart that needs treatment. ??? When the heart tissue that is causing problems is found, the tip of the tube will send an electrical current to it. This will stop it from causing problems. ??? The tube will be taken out. ??? Pressure will be put on the area where the tube was. This will keep it from bleeding. A bandage will be placed over the area. What happens after the procedure? You will be taken to a recovery area. Your blood pressure, heart rate, and breathing will be watched. The area where the tube was will also be watched for bleeding. ??? You will need to lie still for 4?6 hours. This keeps the area where the tube was from bleeding. This information is not intended to replace advice given to you by your health care provider. Make sure you discuss any questions you have with your health care provider. Document Released: 03/29/2014 Document Revised: 01/01/2017 Document Reviewed: 12/22/2013 Elsevier Interactive Patient Education ? 2017 [employer] CIGARETTE SMOKING: The facts are clear, cigarette smoking will shorten your life. Smoking can cause many illnesses along the way. As a healthcare provider, we recommend that you stop smoking. Assistance with quitting is available by contacting 5-495-KUIO-NOW. This is a free resource providing counseling, support, and referral. Or you may contact your personal physician. 4 WAYS TO GET AHEAD OF SEPSIS SEPSIS is a MEDICAL EMERGENCY. Time matters! Infections put you and your family at risk for a life-threatening condition called sepsis. Sepsis is the body???s extreme response to an infection. It is life-threatening, and without timely treatment, sepsis can rapidly lead to tissue damage, organ failure, and . Sepsis happens when an infection you already have???in your skin, lungs, urinary tract or somewhere else???triggers a chain reaction throughout your body. 1 PREVENT INFECTIONS Take good care of chronic conditions. Talk to your doctor about getting the recommended vaccines. 2 PRACTICE GOOD HYGIENE Wash your hands frequently. Keep cuts or open sores clean and covered until they are healed. 3 KNOW THE SYMPTOMS Confusion or disorientation Shortness of breath High heart rate Fever, shivering, or feeling very cold Extreme pain or discomfort Clammy or sweaty skin 4 ACT FAST Get medical care IMMEDIATELY if you suspect sepsis or if you have an infection that???s not getting better or is getting worse. To learn more about sepsis and how to prevent infections, visit www.cdc.gov/sepsis. STROKE is an EMERGENCY [employer] ACT F.A.S.T! FACE ?? Facial droop ?? Uneven smile ARM ?? Arm numbness ?? Arm weakness SPEECH ?? Slurred speech ?? Difficulty speaking or understanding TIME ?? Call 911 and get to the hospital immediately Have the ambulance go to the nearest stroke center. STROKE Risk Factors High blood pressure High cholesterol Heart Disease Diabetes Smoking Heavy alcohol use Physical inactivity and obesity Atrial Fibrillation (irregular heartbeat) Family history of stroke Reminder: Be sure to sign up for the [email or web address] patient portal, which gives you 02/03 access to your medical information ??? including these discharge instructions ??? using your computer, smartphone, or tablet. Just go to [employer] to get started. Questions? Call . [facility] would like to thank you for allowing us to assist you with your healthcare needs. I, OSVALDO, SARBJIT DARYL AVTAR, (or reimbursement representative) have received the above patient education materials/instructions and have verbalized understanding: Patient Signature _ Date/Time Patient Form Setter [employer] Forms Signature (if needed) Date/Time Clinician/Hospital Form Setter [employer] Forms Signature (if needed) Date/Time documented in this encounter Plan of Treatment Not on file documented as of this encounter Visit Diagnoses Not on filedocumented in this encounter
--- OUTSIDE RECORDS SUMMARY | 2025-04-03 10:26 | XMS_ITS | Referral Summary ---
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
--- OUTSIDE RECORDS SUMMARY | 2025-04-03 10:26 | XMS_ITS | Encounter Summary ---
Author Organization [facility] Address [address] [place] [address] Care Team Providers Care Rx Specialist Name Role Phone Jefe Schwartz MD Primary Care Provider [phone] Encounter Details Date Type Department Care Team (Latest Contact Info) Description 02/23/2025 Travel Social History Tobacco Use Types Packs/Day Years Used Date Smoking Tobacco: Former Cigarettes Q uit: 01/2024 Smokeless Tobacco: Never Comments:Vape. Alcohol Use Standard Drinks/Week Comments Never 0 (1 standard drink = 0.6 oz pur e alcohol) [facility] Utilities Answer Date Recorded In the past 12 months has [employer] electric, gas, oil, or water company threatened [...] and heating? Not hard at all 02/18/2025 [facility] of Occupat ional Health - Occupational Stress [...] things needed for daily living? No 02/18/2025 [place] Depression Scale Answer Date Recorded Retired [place] Depression Score 11 02/23/2024 Retired EPD Scale: [...] GED or equivalent No 02/18/2025 Preferred Language Emirati 02/18/2025 PHQ-2 Answer Date Recorded Patient Health [...] 04/17/2025 1:40 PM EDT Visit [facility] OBGYN 1700 [facility] [address] [place] [address] Aydin Crowe MD 1700 [facility] [address] [place] [address] documented as of this encounter Visit Diagnoses Not on filedocumented in this encounter Care Teams Rx Specialist Relationship Specialty Start Date End Date Jefe Schwartz MD 1210 [facility] [address] [place] [address] PCP - General Adolescent Medicine 12/14/23 documented as of this encounter
--- OUTSIDE RECORDS SUMMARY | 2025-04-03 10:26 | XMS_ITS | Encounter Summary ---
[facility] Address [address] [place] [address] Care Team Providers Care Bath Attendant Name Role Phone Jefe Schwartz MD Primary Care Provider [phone] Encounter Details Date Type Department Care Team (Late st Contact Info) Description 12/15/2024 Results Follow-Up [facility] [address] [facility] [address] [place] [address] Izaiah Mcdaniels MD [address] [facility] [address] [place] [address] Social History Tobacco Use Types Packs/Day Years Used Date Smoking Tobacco: Former Cigarettes Q uit: 01/2024 Smokeless Tobacco: Never Comments:Vape. Alcohol Use Standard Drinks/Week Comments Never 0 (1 standard drink = 0.6 oz pur e alcohol) [facility] Utilities Answer Date Recorded In the past 12 months has INTERNET BUSINESS TRADER, gas, oil, or water [employer] threatened to shut off services in your home? No 12/12/2023 AUDIT-C Answer Date Recorded Q1: How often do you have a drink containing alcohol? Never 12/12/2023 Q2: How many drinks containi ng alcohol do you have on a typical day when you are drinking? Patient does not drink Q3: How often do you have si x or more drinks on one occasion? Never 12/12/2023 Overall Financial Resource Strain (CARDIA) Answe r Date Recorded How hard is it for you to pa y for the very basics like food, housing, medical care, and heating? Not hard at all 12/12/2023 [facility] - Occupational Stress Questionnaire Answer Date Recorded Do you feel stress - tense, restless, nervous, or anxious, or unable to sleep at night because your mind is troubled all the time - these days? Not at all 12/12/2023 Exercise Vital Sign Answer Date Recorde d On average, how many days pe r week do you engage in moderate to strenuous exercise (like a brisk walk)? 6 days 12/12/2023 On average, how many minutes do you engage in exercise at this level? 10 min 12/12/2023 Hunger Vital Sign Answer Date Recorded Within the past 12 months, y ou worried that your food would run out before you got the money to buy more. Never true 12/12/19 24 Within the past 12 months, t he food you bought just didn't last and you didn't have money to get more. Never true 12/12/2023 [facility]APARE - Transportation Answer Date Re corded In the past 12 months, has l ack of transportation kept you from medical appointments or from getting medications? No 11/2023 In the past 12 months, has l ack of transportation kept you from meetings, work, or from getting things needed for daily living? No 12/12/2023 [place] Depression Scale Answer Date Recorded Retired [place] Depression Score 11 02/23/2024 Retired EPD Scale: Thought of Harming Self Unrec ognized value 02/23/2024 Abuse Screen Answer Date Recorded Feels Unsafe at Home or Work/School no 10/05/2024 Feels Threatened by Someone no 09/11 Does Anyone Try to Keep You From Having Contact with Others or Doing Things Outside Your Home? no 10/05/2024 Physical Signs of Abuse Present no 10/05/2024 Housing Stability Answer Date Recorded Current Living Arrangements home 11/2023 Potentially Unsafe Housing Conditions none 12/12/2023 Family and Community Support Answer Jayson e Recorded If for any reason you need h elp with day-to-day activities such as bathing, preparing meals, shopping, managing finances, etc., do you get the help you need? I don't need any help 12/12/2023 How often do you feel lonely or isolated from those around you? Never 12/12/2023 Employment Answer Date Recorded Do you want help finding or keeping work or a job? I do not need or want help 12/12/2023 Disabilities Answer Date Recorded Difficulty Concentrating, Remembering or Making Decisions no 12/12/2023 Difficulty Managing Errands Independently no 12/12/2023 Education Answer Date Recorded Do you want help with school or training? For example, starting or completing job training or getting a high school diploma, GED or equivalent No 12/12/2023 Preferred Language Honduran 12/12/2023 PHQ-2 Answer Date Recorded Retired PHQ-9: Brief Depression Severity Measure Score 0 12/12/2023 Education Answer Date Recorded What is the [...] Telephone Encounter - Izaiah Mcdaniels MD - 12/15/2024 2:44 PM EDT Vaginal swab 12/12/2024 positive for BV. Negative for yeast, trichomonas. GC /chlamydia screen negative. Rx Flagyl 500 mg twice daily for 7 days. Rx sent to pharmacy. Jose Payton documented in this encounter Plan of Treatment Upcoming Encounters Date Type Department Care Team (Late st Contact Info) Description 04/17/2025 1:40 PM EDT Visit [facility] OBGYN [address] [place] [address] Aydin Crowe MD [address] [place] [address] documented as of this encounter Visit Diagnoses Not on filedocumented in this encounter Care Teams Bath Attendant Relationship Specialty Start Date End Date Jefe Scwhartz MD [address] [place] [facility] [address] [place] [address] PCP - General Adolescent Medicine 12/14/23 documented as of this encounter
--- OUTSIDE RECORDS SUMMARY | 2025-04-03 10:26 | XMS_ITS | Encounter Summary ---
[facility] [address] [place] [address] Care Team Providers Care Patient Care Technician Name Role Phone Jefe Schwartz MD Primary Care Provider [phone] Encounter Details Date Type Department Care Team (Late st Contact Info) Description 02/11/2025 Results Follow-Up [facility] OBGYN [address] [place] [address] Shania Schwab, DOCUMENT MANAGER [address] [facility] [address] [place] [address] Social History Tobacco Use Types Packs/Day Years Used Date Smoking Tobacco: Former Cigarettes Q uit: 01/2024 Smokeless Tobacco: Never Comments:Vape. Alcohol Use Standard Drinks/Week Comments Never 0 (1 standard drink = 0.6 oz pur e alcohol) [facility] Utilities Answer Date Recorded In the past 12 months has [employer], gas, oil, or water [employer] threatened to shut off services in your [...] heating? Not hard at all 01/23/2025 [facility] - Occupational Stress Questionnaire Answer Date [...] things needed for daily living? No 01/23/2025 [place] Depression Scale Answer Date Recorded Retired [place] Depression Score 11 02/23/2024 Retired EPD Scale: [...] encounter Miscellaneous Notes * Telephone Encounter - Tami Ness MA - 02/13/2025 5:47 PM EDT Patient had a appointment today with Dr. Crowe. S/w patient and he had switched the cream to Flagyl due to patient not being able use Metrogel. Shehas already picked up prescription. documented in this encounter Plan of Treatment Upcoming Encounters Date Type Department Care Team (Late st Contact Info) Description 04/17/2025 1:40 PM EDT Visit [facility] OBGYN [address] [facility] [address] [place] [address] Aydin Crowe MD [address] [facility] [address] [place] [address] documented as of this encounter Visit Diagnoses Diagnosis BV (bacterial vaginosis)- Primary Unspecified vaginitis and vulvovaginitis documented in this encounter Care Teams Patient Care Technician Relationship Specialty Start Date End Date Jefe Schwartz MD [address] [place] [facility] [address] [facility] [address] [place] [address] PCP - General Adolescent Medicine 12/14/23 documented as of this encounter
--- OUTSIDE RECORDS SUMMARY | 2025-04-03 10:26 | XMS_ITS | Encounter Summary ---
Author Organization [facility] Address [address] [place] [address] Care Team Providers Care Interior Mechanic Name Role Phone Jefe Schwartz MD Primary Care Provider [phone] Encounter Details Date Type Department Care Team (Latest Contact Info) Description 02/06/2025 Travel Social History Tobacco Use Types Packs/Day Years Used Date Smoking Tobacco: Former Cigarettes Q uit: 01/2024 Smokeless Tobacco: Never Comments:Vape. Alcohol Use Standard Drinks/Week Comments Never 0 (1 standard drink = 0.6 oz pur e alcohol) [facility] Utilities Answer Date Recorded In the past 12 months has [employer], gas, oil, or water company threatened [...] and heating? Not hard at all 01/23/2025 [facility] - Occupational Stress [...] things needed for daily living? No 01/23/2025 [place] Depression Scale Answer Date Recorded Retired [place] Depression Score 11 02/23/2024 Retired EPD Scale: [...] GED or equivalent No 01/23/2025 Preferred Language Cuban 01/23/2025 PHQ-2 Answer Date Recorded Patient Health [...] EDT Visit [facility] OBGYN [address] [facility] [address] [place] [address] Aydin Crowe MD [address] [facility] [address] [place] [address] documented as of this encounter Visit Diagnoses Not on filedocumented in this encounter Care Teams Interior Mechanic Relationship Specialty Start Date End Date Jefe Schwartz MD [address] [facility] [address] [place] [address] PCP - General Adolescent Medicine 12/14/23 documented as of this encounter
--- OUTSIDE RECORDS SUMMARY | 2025-04-03 10:26 | XMS_ITS | Encounter Summary ---
[facility] Address [address] [place] [address] Care Team Providers Care Head Of Marketing Analytics Name Role Phone Jefe Schwartz MD Primary Care Provider [phone] Encounter Details Date Type Department Care Team (Late st Contact Info) Description 12/26/2024 Results Follow-Up [facility] OBGYN [address] [facility] [address] [place] [address] Kelly Patricia, OIL HEAT TECHNICIAN [address] [facility] [address] [place] [address] Social History Tobacco Use Types Packs/Day Years Used Date Smoking Tobacco: Former Cigarettes Q uit: 01/2024 Smokeless Tobacco: Never Comments:Vape. Alcohol Use Standard Drinks/Week Comments Never 0 (1 standard drink = 0.6 oz pur e alcohol) [facility] Utilities Answer Date Recorded In the past 12 months has [employer], gas, oil, or water [employer] threatened to shut off services in your [...] and heating? Not hard at all 12/30/2024 [facility] - Occupational Stress Questionnaire Answer Date [...] things needed for daily living? No 12/30/2024 [place] Depression Scale Answer Date Recorded Retired [...] GED or equivalent No 12/30/2024 Preferred Language Barbadian 12/30/2024 PHQ-2 Answer Date Recorded Patient Health [...] Info) Description 04/17/2025 1:40 PM EDT Visit [facility] OBGYN [address] [facility] [address] [place] [address] Aydin Crowe MD [address] [facility] [address] [place] [address] documented as of this encounter Visit Diagnoses Not on filedocumented in this encounter Care Teams Head Of Marketing Analytics Relationship Specialty Start Date End Date Jefe Schwartz MD [address] [facility] [address] [place] [address] PCP - General Adolescent Medicine 12/14/23 documented as of this encounter
--- OUTSIDE RECORDS SUMMARY | 2025-04-03 10:26 | XMS_ITS | Encounter Summary ---
Author Organization [employer] ([place], [place], [place], [place]) Address [address] [place] [address] Care Team Providers Care Director Telemetry Name Role Phone Unavailable Primary Care Provider Unavailabl e Encounter Details Date Type Department Care Team (Late st Contact Info) Description 10/15/2018 Transcribed Document [facility] [address] [place] [address] ProviderFeroz MD [facility] [place], [place] [address] Social History Tobacco Use Types Packs/Day Years [...] Conversion Note - Feroz ProviderMD - 10/15/2018 4:49 PM ASPHALT DAUBER Patient Education Materials Follows: Groin Site Care Refer to this sheet [...] Document Reviewed: 08/29/2011 ExitCare? Patient Information ?2014 [employer]. Pharmacology Moderate Conscious Sedation, Adult, Care After These [...] you are awake and alert. ??? Take hgds-vcy-jnlosfu and prescription medicines only as told by [...] 05/17/2014 Document Revised: 12/29/2016 Document Reviewed: 11/15/2016 C-Note Interactive Patient Education ? 2017 C[employer]Note Inc. Procedures Cardiac Ablation Cardiac ablation is a procedure to stop some heart tissue from causing problems. The heart has many electrical connections. Sometimes these connections cause the heart to beat very fast or irregularly. Removing some of the problem areas can improve heart rhythm or make it normal. Ablation is done for people who: ??? Have Batwb-Npzwtrjmx-Jbkul syndrome. ??? Have other fast heart rhythms [...] 12/22/2013 Elsevier Interactive Patient Education ? 2017 C-Note Inc. Electronically signed by Prema Avendaño Conversion Boiler Control Room Operator Cerner at 11/25/2022 5:25 PM CDT documented in this encounter Plan of Treatment Not on file documented as of this encounter Visit Diagnoses Not on filedocumented in this encounter
--- OUTSIDE RECORDS SUMMARY | 2025-04-03 10:26 | XMS_ITS | Encounter Summary ---
Author Organization [employer] ([place], [place], [place], [place]) Address [address] [place] [address] Care Team Providers Care Cloth Reeler Name Role Phone Unavailable Primary Care Provider Unavailabl e Encounter Details Date Type Department Care Team (Late st Contact Info) Description 10/15/2018 Transcribed Document [facility] Family Medicine [address] [place] [address] ProviderFeroz MD [facility] [place] [address] Social History Tobacco Use Types Packs/Day Years [...] Conversion Note - Feroz ProviderMD - 10/15/2018 10:25 AM OPERATING MANAGER DATE OF STUDY: 10/15/2018 ELECTROPHYSIOLOGY REPORT PREOPERATIVE DIAGNOSIS: Mkvpo-Oketxuefx-Luxex with recurrent symptomatic tachycardia. PROCEDURE PERFORMED: Comprehensive electrophysiology study with intracardiac three dimensional mapping and transseptal heart catheterization, intracardiac echocardiography, central aortic pressure monitoring, and supraventricular tachycardia ablation. INDICATION: The patient is an 18-year-old female with recurrent tachycardia and WPW pattern on her EKG consistent with a left lateral pathway. DESCRIPTION OF PROCEDURE: The patient was brought to the EP laboratory in the postabsorptive, nonsedated state in normal sinus rhythm. After the aseptic draping of the femoral regions, the bilateral femoral triangles were infiltrated 1% with 1% lidocaine locally. Two 6-Ghanaian and two 7-Ghanaian sheaths were placed in the left femoral vein. A 5-Ghanaian sheath was placed in the left femoral artery. A 5-Ghanaian pigtail catheter was placed to level aortic valve plane for continuous arterial pressure monitoring to assist with transseptal cardiac catheterization. A 7-Ghanaian Decapolar catheter was placed in the coronary sinus. A 6-Ghanaian Quadripolar catheters were placed to high right atrium, across tricuspid valve to record the His signal, and at the right ventricular apex. All pacing was performed at twice diastolic threshold, using a pulse width of 2 msec. The resting basic cycle length was 590 msec with an AH interval of 129 msec and HV interval of zero msec. In the resting state, activation was consistent with a left lateral accessory pathway. In the baseline state, the VA block cycle length was less than 200 msec as conduction occurred through the accessory pathway. The AV block cycle length was through the accessory pathway as well and found to be [address] a [address] train of 400 msec. The ventricular effective refractory period was found to be 200 msec. The AV dangelo effective refractory period could not be assessed as reproducible induction of her tachycardia occurred. The inducible tachycardia was a narrow QRS tachycardia having a cycle length of 400 msec. The AH interval was 210 msec with an HV interval of 40 msec. The high right atrial interval was 157 msec, 133 msec, V to PCS atrial activation was 116 msec, V to mid CSA activation 105 msec, and V to distal CSA 80 msec. Placement of a PVC during His refractoriness did not advance tachycardia. Next through the right femoral vein, a long 9-Ghanaian sheath and 11-Ghanaian sheath were introduced. A Biosense Rosas intracardiac echo probe was advanced to the atrium. The patient was systemically anticoagulated with a heparin bolus followed by heparin infusion. Serial ACTs were assessed and additional heparin given as necessary. Next, using fluoroscopic and intracardiac echo guidance with use of an Agilis sheath and a Brockenbrough needle, transseptal catheterization was performed without difficulty. The left atrial pressure was measured and recorded. Next, using a BiosD[employer] Code Rosas STF Curve irrigated ablation catheter in conjunction with the Carto three dimensional electroanatomic mapping system, the activation timing was assessed during normal sinus rhythm as well as during orthodromic reentrant tachycardia. Ablation was delivered at 50 montemayor energy and ultimately successful ablation site was found at the lateral AV annulus with loss of accessory pathway conduction at 2 seconds into energy delivery. The patient was monitored for approximately 30 minutes thereafter without recurrence of her delta wave. After completion of ablation, the basic cycle length was 634 msec with an AH interval of 150 msec and HV interval 48 msec. There was no VA conduction present. The AV block cycle length was found to be [address] a drive train of 400 msec, ventricular effective refractory period was 200 msec and the AV dangelo effective refractory period was 250 msec. At the completion of procedure, all catheters were removed. The patient's anticoagulated state was reversed with administration of protamine. Subsequently, all sheaths were removed. Hemostasis was achieved by manual compression. The patient tolerated procedure well, left the EP laboratory in stable condition. COMPLICATIONS: None. ESTIMATED BLOOD LOSS: 20 mL. RADIATION EXPOSURE: 385 mGy AK. CONTRAST USE: None. 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 RECOMMENDATION: Standard postablation care and followup. Vladimir Flanagan M.D. Dict: 10/15/2018 10:25:54 Trans: 10/15/2018 12:32:08 CC1: Vladimir Flanagan M.D. Electronically signed by Prema Avendaño Conversion Human Resources Operations Specialist Rebeccaner at 11/25/2022 5:08 PM CDT documented in this encounter Plan of Treatment Not on file documented as of this encounter Visit Diagnoses Not on filedocumented in this encounter
--- OUTSIDE RECORDS SUMMARY | 2025-04-03 10:26 | XMS_ITS | Encounter Summary ---
Author Organization [employer] ([place], [place], [place], [place]) Address [address] [place] [address] Care Team Providers Care Trailer Driver Name Role Phone Unavailable Primary Care Provider Unavailabl e Encounter Details Date Type Department Care Team (Late st Contact Info) Description 10/15/2018 Transcribed Document [facility] Family Medicine [address] [place] [address] ProviderFeroz MD [address] [place] [address] Social History Tobacco Use Types Packs/Day [...] Note - Feroz Richter MD - 10/15/2018 4:46 PM GM VIDEO [address] , [place] [address] Patient Copy Patient Information: Name: SARBJIT RILEY Current Date: 10/15/2018 16:46:09 : 2000 Patient Address: [place] [address] Patient Attending Physician: Primary Care Provider: SHANI LUDWIG MD Primary Care Provider Discharge Diagnosis: Weight on Admission: 228 lb, 0 oz Comment: Follow-up Instructions: With: Address: When: BELA MARQUES [address] [place] [address] Business (1) Within 2 weeks Discharge Instructions: Diet after Discharge: Resume usual diet as tolerated Activity after Discharge: Rest and relax today, No strenuous activities, No heavy lifting over 10 pounds Driving after Discharge: Other: May NOT drive for 24 hours Showering/Bathing:Other: No tub baths for 5 days. Immunizations Documented During Stay: No Immunizations Found [...] Document Reviewed: 08/29/2011 ExitCare? Patient Information ?2014 [employer]. Moderate Conscious Sedation, Adult, Care After These [...] you are awake and alert. ??? Take fbtb-vqm-ufaayss and prescription medicines only as told by [...] 05/17/2014 Document Revised: 12/29/2016 Document Reviewed: 11/15/2016 Radius Networks Interactive Patient Education ? 2017 [employer] Inc. Cardiac Ablation Cardiac ablation is a procedure to stop some heart tissue from causing problems. The heart has many electrical connections. Sometimes these connections cause the heart to beat very fast or irregularly. Removing some of the problem areas can improve heart rhythm or make it normal. Ablation is done for people who: ??? Have Lbuws-Ghpgbbbti-Vugdr syndrome. ??? Have other fast heart rhythms [...] 03/29/2014 Document Revised: 01/01/2017 Document Reviewed: 12/22/2013 ElseKavalia Interactive Patient Education ? 2017 [employer]ius Networks Inc. CIGARETTE SMOKING: The facts are clear, cigarette smoking will shorten your life. Smoking can cause many illnesses along the way. As a healthcare provider, we recommend that you stop smoking. Assistance with quitting is available by contacting 3-665-IYWL-NOW. This is a free resource providing counseling, [...] Be sure to sign up for the OLX patient portal, which gives you 02/03 access to your medical information ??? including these discharge instructions ??? using your computer, smartphone, or tablet. Just go to [facility] to get started. Questions? Call . [facility] would like to thank you for allowing us to assist you with your healthcare needs. OSVALDO Nunes MADISON EVELYN ROSE, (or business services representative) have received the above patient education materials/instructions and have verbalized understanding: Patient Signature _ Date/Time Patient Ui Designer Signature (if needed) Date/Time Clinician/Hospital Ui Designer Signature (if needed) Date/Time Electronically signed by [facility], [facility] Conversion Rehab Office Coordinator Hitesh at 11/25/2022 5:12 PM CDT documented in this encounter Plan of Treatment Not on file documented as of this encounter Visit Diagnoses Not on filedocumented in this encounter
--- OUTSIDE RECORDS SUMMARY | 2025-04-03 10:26 | XMS_ITS | Encounter Summary ---
Author Organization Healthcare Address [address] [place] [address] Care Team Providers Care Beam Saw Operator Name Role Phone System, Provider Not In MD Primary Care Provider Unavailable Reason for Referral * Consultation (Routine) - Authorized Specialty Diagnoses / Procedures Referred By Jeanne roberts Referred To Contact Nephrology Diagnoses Proteinuria complicating , unspecified trimester Izaiah Mcdaniels MD [address] [facility] [address] [place] [address] Phone: tel: fax: [facility] Nephrology, Bone & Mineral Metabolism [address], [address] [place] [address] Phone: tel: fax: Referral ID Status Reason Start Date Expiration Date Visits Requested Visits Authorized [id number] Authorized Specialty Services Required 02/13/2025 08/15/2026 1 1 Encounter Details Date Type Department Care Team (Late st Contact Info) Description 02/13/2025 Community Orders Community Practice [address] [place] [address] Izaiah Mcdaniels MD [address] [place] [address] Proteinuria complicating , unspecified trimester (Primary Dx) Social History Tobacco Use Types Packs/Day Years Used Date Smoking Tobacco: Former Cigarettes Q uit: 2021 Passive Smoke Exposure: Past Smokeless Tobacco: Never Alcohol Use Standard Drinks/Week Comments Never 0 (1 standard drink = 0.6 oz pur e alcohol) PHQ-2 Answer Date Recorded Patient Health Questionnaire-2 Score 0 10/20/2024 Comments Unknown Sex and Gender Information Value Date Recorded Sex Assigned at Not on file Legal Sex Female 8:12 AM EST Gender Identity Not on file Sexual Orientation Not on file documented as of this encounter Plan of Treatment Upcoming Encounters Date Type Department Care Team (Late st Contact Info) Description 06/30/2025 1:20 PM EST Office Visit [facility] [address] [place] [address] Duke White MD [address] [place] [phone] Scheduled Referrals Name Type Priority Associated Diagnoses Orde r Schedule Ambulatory referral to Nephrology Outpatient Referral Routine Proteinuria complicating , unspecified trimester Expected: 02/13/2025 (Approximate), Expires: 08/17/2026 documented as of this encounter Visit Diagnoses Diagnosis Proteinuria complicating , unspecified trimester- Primary documented in this encounter Additional Health Concerns Assessment Noted Time A fall risk assessment has been complete d for the patient 01/11/2025 3:59 PM EDT A Body Mass Index follow-up plan has been documented for the patient 01/12/2025 1:55 PM EDT documented as of this encounter Care Teams Beam Saw Operator Relationship Specialty Start Date End Date System, Provider Not In, [address] [place] [address] PCP - General Family Medicine 09/29/24 documented as of this encounter
--- OUTSIDE RECORDS SUMMARY | 2025-04-03 10:27 | XMS_ITS | Encounter Summary ---
Author Organization [facility] Address [address] [place] [address] Care Team Providers Care Blindstitch Lining Feller Name Role Phone Jefe Schwartz MD Primary Care Provider [phone] Encounter Details Date Type Department Care Team (Latest Contact Info) Description 02/13/2025 Travel Social History Tobacco Use Types Packs/Day Years Used Date Smoking Tobacco: Former Cigarettes Q uit: 01/2024 Smokeless Tobacco: Never Comments:Vape. Alcohol Use Standard Drinks/Week Comments Never 0 (1 standard drink = 0.6 oz pur e alcohol) [facility] Utilities Answer Date Recorded In the past 12 months has [employer], gas, oil, or water company threatened [...] and heating? Not hard at all 01/23/2025 [facility] [place] of Occupat ional Health - Occupational Stress [...] things needed for daily living? No 01/23/2025 [place] Depression Scale Answer Date Recorded Retired [place] Depression Score 11 02/23/2024 Retired EPD Scale: [...] GED or equivalent No 01/23/2025 Preferred Language Ecuadorean 01/23/2025 PHQ-2 Answer Date Recorded Patient Health [...] EDT Visit [facility] [address] [facility] [address] [place] [address] Aydin Crowe MD 1700 [facility] [address] [place] [address] documented as of this encounter Visit Diagnoses Not on filedocumented in this encounter Care Teams Blindstitch Lining Feller Relationship Specialty Start Date End Date Jefe Schwartz MD 1210 [facility] [address] [place] [address] PCP - General Adolescent Medicine 12/14/23 documented as of this encounter
--- OUTSIDE RECORDS SUMMARY | 2025-04-03 10:27 | XMS_ITS | Encounter Summary ---
Author Organization [facility] Address [address] [place] [address] Care Team Providers Care Hotel Maid Name Role Phone Jefe Schwartz MD Primary Care Provider [phone] Encounter Details Date Type Department Care Team (Latest Contact Info) Description 02/16/2025 Travel Social History Tobacco Use Types Packs/Day Years Used Date Smoking Tobacco: Former Cigarettes Q uit: 01/2024 Smokeless Tobacco: Never Comments:Vape. Alcohol Use Standard Drinks/Week Comments Never 0 (1 standard drink = 0.6 oz pur e alcohol) [facility] Utilities Answer Date Recorded In the past 12 months has [employer] electric, gas, oil, or water company threatened [...] and heating? Not hard at all 01/23/2025 [facility] [place] of Occupat ional Health - Occupational Stress [...] things needed for daily living? No 01/23/2025 [place] Depression Scale Answer Date Recorded Retired [place] Depression Score 11 02/23/2024 Retired EPD Scale: [...] GED or equivalent No 01/23/2025 Preferred Language Hungarian 01/23/2025 PHQ-2 Answer Date Recorded Patient Health [...] Visit [facility]BGYN 1700 [facility] [address] [place] [address] Aydin Crowe MD 1700 [facility] [address] [place] [address] documented as of this encounter Visit Diagnoses Not on filedocumented in this encounter Care Teams Hotel Maid Relationship Specialty Start Date End Date Jefe Schwartz MD 1210 [facility] [address] [place] [address] PCP - General Adolescent Medicine 12/14/23 documented as of this encounter
--- OUTSIDE RECORDS SUMMARY | 2025-04-03 10:27 | XMS_ITS | Encounter Summary ---
Author Organization [facility] Address [address] [place] [address] Care Team Providers Care Braider Setter Name Role Phone Jefe Schwartz MD Primary Care Provider [phone] Encounter Details Date Type Department Care Team (Late st Contact Info) Description 11/25/2024 Results Follow-Up [facility] [address] [place] [phone] Izaiah Mcdaniels MD 1700 [facility] [address] [place] [phone] Social History Tobacco Use Types Packs/Day Years Used Date Smoking Tobacco: Former Cigarettes Q uit: 01/2024 Smokeless Tobacco: Never Comments:Vape. Alcohol Use Standard Drinks/Week Comments Never 0 (1 standard drink = 0.6 oz pur e alcohol) [facility] Utilities Answer Date Recorded In the past 12 months has [employer], [employer], oil, or water [employer] threatened to shut off services in your [...] and heating? Not hard at all 12/12/2023 [facility] [place] of Occupat ional Health - Occupational Stress [...] things needed for daily living? No 12/12/2023 [place] Depression Scale Answer Date Recorded Retired [place] Depression Score 11 02/23/2024 Retired EPD Scale: [...] GED or equivalent No 12/12/2023 Preferred Language Liberian 12/12/2023 PHQ-2 Answer Date Recorded Retired PHQ-9: Brief Depression Severity Measure Score 0 12/12/2023 Comments Yes Sex and Gender Information Value [...] Visit [facility]BGYN [address]00 [facility] [address] [place] [address] Aydin Crowe MD 1700 [facility] [address] [place] [address] documented as of this encounter Visit Diagnoses Not on filedocumented in this encounter Care Teams Braider Setter Relationship Specialty Start Date End Date Jefe Schwartz MD 1210 [facility] [address] [place] [address] PCP - General Adolescent Medicine 12/14/23 documented as of this encounter
--- OUTSIDE RECORDS SUMMARY | 2025-04-03 10:27 | XMS_ITS | Encounter Summary ---
Author Organization [facility] Address [address] [place] [address] Care Team Providers Care Principal Systems Engineer Name Role Phone Jefe Schwartz MD Primary Care Provider [phone] Encounter Details Date Type Department Care Team (Latest Contact Info) Description 03/02/2025 Travel Social History Tobacco Use Types Packs/Day Years Used Date Smoking Tobacco: Some Days Cigarettes Last attempted to quit: 01/2024 Smokeless Tobacco: Never Comments:Vape. Alcohol Use Standard Drinks/Week Comments Never 0 (1 standard drink = 0.6 oz pur e alcohol) [facility] Utilities Answer Date Recorded In the past 12 months has [employer], gas, oil, or water company threatened [...] and heating? Not hard at all 02/18/2025 [facility] [place] of Occupat ional Health - Occupational Stress [...] things needed for daily living? No 02/18/2025 [place] Depression Scale Answer Date Recorded Retired [place] Depression Score 11 02/23/2024 Retired EPD Scale: [...] none 02/18/2025 Family and Community Support Answer Jasyon e Recorded If for any reason you [...] GED or equivalent No 02/18/2025 Preferred Language Cymro 02/18/2025 PHQ-2 Answer Date Recorded Patient Health [...] EDT Visit [facility]BGYN [address] [facility] [address] [place] [address] Aydin Crowe MD 1700 [facility] [address] [place] [address] documented as of this encounter Visit Diagnoses Not on filedocumented in this encounter Care Teams Principal Systems Engineer Relationship Specialty Start Date End Date Jefe Schwartz MD 1210 [facility] [address] [place] [address] PCP - General Adolescent Medicine 12/14/23 documented as of this encounter
--- OUTSIDE RECORDS SUMMARY | 2025-04-03 10:27 | XMS_ITS | Encounter Summary ---
Author Organization [facility] Address [address] [place] [address] Care Team Providers Care Delivery Driver Assistant Name Role Phone Jefe Schwartz MD Primary Care Provider [phone] Encounter Details Date Type Department Care Team (Late st Contact Info) Description 02/27/2025 Prep for Surgery [facility] ORDERS ONLY [address] [place] [address] Aydin Crowe MD 1700 [facility] [address] [place] [address] Social History Tobacco Use Types Packs/Day Years Used Date Smoking Tobacco: Former Cigarettes Q uit: 01/2024 Smokeless Tobacco: Never Comments:Vape. Alcohol Use Standard Drinks/Week Comments Never 0 (1 standard drink = 0.6 oz pur e alcohol) [facility] Utilities Answer Date Recorded In the past 12 months has [employer], gas, oil, or water [employer] threatened to shut off services in your [...] and heating? Not hard at all 02/18/2025 [place] of Occupat ional Health - Occupational Stress [...] things needed for daily living? No 02/18/2025 [place] Depression Scale Answer Date Recorded Retired [place] Depression Score 11 02/23/2024 Retired EPD Scale: [...] GED or equivalent No 02/18/2025 Preferred Language Sierra Leonean 02/18/2025 PHQ-2 Answer Date Recorded Patient Health [...] Info) Description 04/17/2025 1:40 PM EDT Visit [facility] OBGYN 1700 [facility] [address] [place] [address] Aydin Crowe MD 1700 [facility] [address] [place] [address] documented as of this encounter Visit Diagnoses Not on filedocumented in this encounter Care Teams Delivery Driver Assistant Relationship Specialty Start Date End Date Jefe Schwartz MD [address] [facility] [address] [facility] [place] [address] PCP - General Adolescent Medicine 12/14/23 documented as of this encounter
--- OUTSIDE RECORDS SUMMARY | 2025-04-03 10:27 | XMS_ITS | Encounter Summary ---
Author Organization [facility] Address [address] [place] [address] Care Team Providers Care Armament Installer Name Role Phone Jefe Schwartz MD Primary Care Provider [phone] Encounter Details Date Type Department Care Team (Latest Contact Info) Description 02/18/2025 Travel Social History Tobacco Use Types Packs/Day Years Used Date Smoking Tobacco: Former Cigarettes Q uit: 01/2024 Smokeless Tobacco: Never Comments:Vape. Alcohol Use Standard Drinks/Week Comments Never 0 (1 standard drink = 0.6 oz pur e alcohol) [facility] Utilities Answer Date Recorded In the past 12 months has [employer] electric, gas, oil, or water company threatened [...] and heating? Not hard at all 02/18/2025 [facility] [place] of Occupat ional Health - Occupational Stress [...] things needed for daily living? No 02/18/2025 [place] Depression Scale Answer Date Recorded Retired [place] Depression Score 11 02/23/2024 Retired EPD Scale: [...] GED or equivalent No 02/18/2025 Preferred Language Cypriot 02/18/2025 PHQ-2 Answer Date Recorded Patient Health [...] as of this encounter Functional Status * Over the [...] 10:41 PM EDT Lalito Evans RN * [place] Suicide Severity Rating Scale (Screener/Recent Self-Report) Question [...] Evans RN documented as of this encounter Plan of Treatment Upcoming Encounters Date Type Department Care Team (Late st Contact Info) Description 04/17/2025 1:[address] [facility] OBGYN 1700 [facility] [address] [place] [address] Aydin Crowe MD [address] [place] [phone] documented as of this encounter Visit Diagnoses Not on filedocumented in this encounter Care Teams Armament Installer Relationship Specialty Start Date End Date Jefe Schwartz MD 1210 [facility] [address] [place] [address] PCP - General Adolescent Medicine 12/14/23 documented as of this encounter
--- OUTSIDE RECORDS SUMMARY | 2025-04-03 10:27 | XMS_ITS | Encounter Summary ---
Author Organization [facility] Address [address] [place] [address] Care Team Providers Care Supervisor Composing Room Name Role Phone Jefe Schwartz MD Primary Care Provider [phone] Encounter Details Date Type Department Care Team (Latest Contact Info) Description 02/20/2025 Travel Social History Tobacco Use Types Packs/Day Years Used Date Smoking Tobacco: Former Cigarettes Q uit: 01/2024 Smokeless Tobacco: Never Comments:Vape. Alcohol Use Standard Drinks/Week Comments Never 0 (1 standard drink = 0.6 oz pur e alcohol) [facility] Utilities Answer Date Recorded In the past 12 months has [employer] electric, gas, oil, or water company threatened [...] and heating? Not hard at all 02/18/2025 [facility] [place] of Occupat ional Health - Occupational Stress [...] things needed for daily living? No 02/18/2025 [place] Depression Scale Answer Date Recorded Retired [place] Depression Score 11 02/23/2024 Retired EPD Scale: [...] GED or equivalent No 02/18/2025 Preferred Language Haitian 02/18/2025 PHQ-2 Answer Date Recorded Patient Health [...] Info) Description 04/17/2025 1:40 PM EDT Visit [facility] OBGYN 1700 [facility] [address] [place] [address] Aydin Crowe MD 1700 [facility] [address] [place] [address] documented as of this encounter Visit Diagnoses Not on filedocumented in this encounter Care Teams Supervisor Composing Room Relationship Specialty Start Date End Date Jefe Schwartz MD 1210 [facility] [address] [place] [address] PCP - General Adolescent Medicine 12/14/23 documented as of this encounter
--- OUTSIDE RECORDS SUMMARY | 2025-04-03 10:27 | XMS_ITS | Clinical Summary ---
Author Organization [facility] Address [address] [place] [id number] Care Team Providers Care Ladle Liner Helper Name Role Phone Jefe Schwartz MD Primary Care Provider [phone] Allergies Active Allergy Reactions Criticality Noted Date Comments Fentanyl Mental Status Change Low 10/26/2023 Pt gets mean broke 4 restraints and aggressive towards staff Medications vitamins (PRENATABS RX) 29-1 MG tablet tablet Take 1 tablet by mouth Daily. 30 tablet 11 07/25/20 24 025 Active Ferric Maltol (ACCRUFeR) 30 MG capsule Take 1 capsule by mouth 2 (Two) Times a Day. Take on an empty stomach. 60 capsule 9 01/19/20 25 Active aspirin 81 MG chewable tablet Chew 1 tablet Daily. 30 tablet 6 09/14/19 25 025 Discontinued valACYclovir (VALTREX) 500 MG tablet Take 1 tablet by mouth Daily. 30 tablet 6 12/27/2024 10:36 AM EDT 12/28/19 25 025 Discontinued labetalol (NORMODYNE) 100 MG tablet Take 1 tablet by mouth 2 (Two) Times a Day. 60 tablet 8 01/02/20 25 025 Discontinued Calcium Carbonate Antacid (TUMS PO) Take by mouth. 025 Discontinued(St op Taking at Discharge) Ondansetron (ZOFRAN ODT PO) Take by mouth. 025 Discontinued Active Problems Problem Noted Date Diagnosed Date Poor growth affecting management of mother in third trimester 02/13/2025 Assessment & Plan (02/23/2025 2:35 PM EDT): Patient presents for follow-up growth ultrasound secondary to IUGR. Today's ultrasound shows normal growth with normal amniotic fluid. Given the combination of previously poor growth and chronic hypertension would recommend delivery at 37 to 38 weeks. labor in third trimester with term pasquale segura 01/23/2025 Iron deficiency anemia tigre villafana to inadequate dietary iron intake 01/12/2025 Overview (01/18/2025): Worsening of iron deficiency anemia. Hematocrit 27.8%. Rx iron sulfate 325 mg daily. 1 hour glucose screen was borderline at 132. Should repeat at next visit. Had severe iron deficiency anemia last . Repeat iron profile and ferritin. Try Accrufer 30 mg twice daily. Autoimmune disorder 12/12/2024 Overview (12/12/2024): Lab workup by nephrology October 2024 with positive SHANTI and elevated C3 and normal C4. History of pustular psoriasis. Proteinuria affecting , antepartum 12/2024 Overview (12/12/2024): 2+ protein on clean-catch on urinalysis. Has collection kit for 24-hour urine. Preeclampsia labs normal except for elevated uric acid. Proteinuria has worsened since last December; 619 mg/ 24 hr. PDC appointment at 20 weeks. Nephrology appointment 10/20/2024 Urinalysis 11/23/2024 was negative protein. 08/17/2024 Overview (01/12/2025): 23 yo IOL at 35 5/7wk superim preeclampsia ( 5-4-24) Dates by 8 w 2 d u/s. Mat21 09/14/24 low risk;c/w male. 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 07/27/24 baseline LDH and UA elevated. >UA 6.5 11/09/2024 anomaly scan at [facility] Worsening of iron deficiency anemia. Hematocrit 27.8%. 1 hour glucose screen was borderline at 132. Should repeat at next visit. Chronic hypertension affecting 024 Overview (11/09/2024): 12/12/2023; H/o IOL at 35 5/7wk chronic hypertension with superimposed preeclampsia ( 5--24) 07/25/2024 patient was noted to have high [...] Consider weekly biophysical profile post 32 weeks. Assessment & Plan (02/23/2025 2:26 PM EDT): Patient presents for follow-up ultrasound secondary to IUGR and chronic hypertension. Blood pressure today 146/70 and on repeat was 121/60. Patient asymptomatic from preeclampsia perspective today. Patient currently not on antihypertensive medication. Assessment & Plan (11/09/2024 2:20 PM EDT): Patient carries diagnosis of chronic hypertension in . Additionally she has chronic proteinuria since she had superimposed preeclampsia with her last . Patient is being followed by nephrology for her chronic hypertension. Her most recent protein to creatinine ratio indicated approximately 0.6 g per 24 hours proteinuria. This is consistent with mild proteinuria. Patient's blood pressure today is 112/71 on 100 mg of labetalol daily. 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 Ultrasound today demonstrates a normally grown fetus with no abnormality seen. In particular no markers for trisomy. Amniotic fluid volume and cervical length were normal. Patient's chronic hypertension appears to be very mild with control with a very small dose of labetalol. With her history of chronic hypertension and preeclampsia as well as chronic proteinuria the patient is at an increased risk for preeclampsia at this . We will rescan the patient again at 28 and 32 weeks to assess growth and wellbeing. Patient has been scheduled back with us in 8 weeks. History of pre-eclampsia in prior , currently 12/12/2023 Overview (09/14/2024): On ASA 81 mg after 10 weeks gestation. Assessment & Plan (11/09/2024 2:04 PM EDT): Women with a history of previous preeclampsia are at increased risk of preeclampsia and other adverse outcomes in subsequent pregnancies. The magnitude of this risk is dependent on gestational age at time of disease onset, severity of disease and the presence or absence of preexisting medical disorders. The objective in the management of these patients is to reduce risk factors by optimizing maternal health before conception and to detect obstetric complications as early as possible. This objective can be achieved by formulating a rational approach that includes preconception evaluation and counseling, early care, frequent monitoring of maternal and well-being and timely delivery. Recent studies have confirmed that there is no single biomarker that can be clinically useful for the prediction of recurrent preeclampsia. Combinations of biomarkers and biophysical parameters appear promising but more data are needed to confirm this use in clinical practice. Further, a committee opinion published by the [place] [employer] in April 2015 noted 1st trimester screening tests for preeclampsia have low positive predictive value and there are no data demonstrating that they lead of improved outcomes and are therefore not suggested. Supplementation with fish oil, calcium or vitamin C and E and the use of antihypertensives have been shown to be ineffective in the prevention of recurrent preeclampsia and are not recommended. In 2014, the USPSTF (U.S. Preventive Services Task Force) recommended low-dose aspirin after 12 weeks' gestation for women at high risk for preeclampsia ([employer] Clerk Med 2014; 161:819). In a 2020 update, researchers incorporated data from several newer trials, including the large, multicenter ASPRE trial (N Engl J Med 2017; 377:613). The Task Force continues to recommend daily low-dose aspirin (81 mg/day) after 12 weeks' gestation as a preventive measure for women at high risk for preeclampsia. (B recommendation; moderate-certainty evidence of substantial net benefit). As data on optimal risk prediction for preeclampsia are lacking, the USPSTF again offers a pragmatic approach to identifying at-risk individuals. It recommends treatment for women with one or more high-risk factors or two or more moderate- risk factors. High-risk factors: History of preeclampsia, multifetal gestation, chronic hypertension, pregestational (type 1 or type 2) diabetes, kidney disease, or autoimmune disease (e.g., systemic lupus erythematous, antiphospholipid syndrome). Moderate-risk factors: Nulliparity, body-mass index >=30 kg/m2, family history (i.e., preeclampsia in mother or sister), age >=35, in vitro conception, personal history factors (i.e., previous adverse outcome or intrauterine growth restriction >=10-year interval), lower socioeconomic status, or Black race (due to a confluence of environmental, social and historical inequities rather than biology). Although the 2014 USPSTF recommendations are unchanged, pooling of additional data for the meta-analysis strengthens evidence of safety as well as efficacy (lower risk for preeclampsia, and growth restriction) of low-dose aspirin. Lastly, the meta-analysis further validates the association between low-dose aspirin and lower mortality (relative risk reduction, 21%). I recommend more frequent monitoring for signs and symptoms of severe hypertension or preeclampsia than that recommended for normal . This monitoring may include more frequent visits, home blood pressure monitoring or nursing contacts. For patients with a prior complicated by preeclampsia with growth restriction, I recommend serial ultrasound evaluation of growth and amniotic fluid volume. The development of severe gestational hypertension, growth restriction or recurrent preeclampsia requires maternal hospitalization. (from Raymundo and Jailyn, Obstet Gynecol 2008;112:359-72; Rohit CalderonT et al. 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 Cordero in [facility]. 10/11/2023 HSV 2 IgG positive; consistent with recurrent HSV2. Rx valtrex For suppression 500 mg daily. Obesity in , antepartum 10/26/2023 Overview (10/12/2024): BMI 44 Anomaly scan at [facility]. 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 Fernando in [place] Echo & 2 week holter monitor in August 2023 wnl per patient. PDC appt 11/04; ultrasound within normal limits and normal growth. EFW 57%. No follow-up ultrasound scheduled. Assessment & Plan (11/05/2023 12:32 PM EDT): Patient currently followed by cardiology in [place]. Patient with a history of SVT but has also had cardiac ablation. Patient reports a normal echo and Holter monitor performed in August. Patient asymptomatic today. Given his history patient will likely tolerate well without issues though given cardiac history patient could consider cardiology consultation within [facility] in case patient were to have issues during . Today's anatomy appears normal. Follow-up as clinically indicated Resolved Problems Problem Noted Date Diagnosed Date Resolved Date labor in third trime ster with delivery 02/18/2025 02/19/2025 labor in second trimester 12/29/2024 02/06/2025 Threatened labor, second trimester 12/25/2024 02/06/2025 Overview (12/27/2024): 12/26/2024 admitted for mag and steroids for labor. Cervix was 1 to 2 cm /50%/ -1 station on admission. Cervical exam 12/26/2024 was close to fingertip/50%/-2 station BV (bacterial vaginosis) 12/15/2024 Overview (12/15/2024): Vaginal swab 12/12/2024 positive for BV. Negative for yeast, trichomonas. GC /chlamydia screen negative. Rx Flagyl 500 mg twice daily for 7 days. Second trimester 11/23/2024 0 02/06/2025 Nausea and vomiting in 09/14/2024 02/06/2025 Overview (10/12/2024): 09/14/2024. Patient states that Unisom has not helped. Emesis even with Phenergan. Rx for Bonjesta sent to pharmacy. Screening for cervical cancer 07/25/2024 02/06/2025 Overview (08/19/2024): Last Pap smear? Pap smear 08/17/2024 was negative. Threatened 07/25/2024 02/07/20 25 Overview (07/25/2024): 07/25/2024. Ultrasound with 5-week 3-day gestational sac. GS visualized today. Possible YS, no FP visualized at this time. Check hCGs and repeat in 48 hours. Check progesterone level. Repeat ultrasound in 2 weeks. Spontaneous vaginal delivery 12/14/2023 07/25/2024 (normal spontaneous vaginal delivery) 12/12/2023 07/25/2024 GBS (group B Streptococcus c arrier), +RV culture, currently 12/11/2023 07/25/2024 Overview (12/11/2023): Group B strep screen positive. 11/18/2023 07/25/2024 Overview (12/09/2023): 23-year-old G1, P0 Transfer of care @ 28 weeks from [place] unemployed. FOB going to nursing school Chronic hypertension; no medication prior to [facility] HSV2 outbreak at 27 week visit Ghosh Parkinson's Xdqui-tvtgufqk-EQB Mild LFT elevation. Anemia 28 weeks hematocrit 29%.: on iron. PDC u/s 30 wk; EFW 57% Growth ultrasound 12/01 EFW 48%. AC 66%. Screening for cervical cancer 10/26/2023 10/26/2023 Overview (10/26/2023): Last Pap smear? Chronic hypertension affecting 10/26/2023 07/25/2024 Overview (12/10/2023): Transfer of care at [address] Cordero in [place] Baseline PEP, 24 Hour urine, HGBA1C, TSH drawn at [facility] ob (29wk); not on medication No meds prior to . Baby aspirin 81mg daily. 11/05/23; PDC u/s 30 wk; EFW 57% 11/04 24 hr urine 303 mg; UTI??Rx Macrobid 11/08 12/01; REPEAT 24 HR URINE and PEP. PEP was normal. 24 hour urine protein 12/09/2023 was 395 Assessment & Plan (11/05/2023 11:58 AM EDT): Currently on aspirin supplementation. Not currently on hypertensive meds. Blood pressure today 115/67. Vfpzu-Pcdhlpmwh-Woona syndrome 10/26/2023 10/26/2023 Maternal anemia in , antepartum 10/26/2023 07/25/2024 Overview (12/02/2023): On iron supplementation. 11/05/2023 HCT 29.1%. 11/18/2023 Rx Accrufer 30 mg bid Encounters Date Type Department Care Team Description 03/17/2025 Maternal Screening [facility] NURSE CALL CENTER [address] [place] [address] Ivanna Downing, SUKUMAR 03/09/2025 Maternal Screening [facility] NURSE CALL CENTER [address] [place] [address] Aracelis Mueller, RN 03/06/2025 5:06 AM EDT Anesthesia Event [facility] LABOR DELIVERY [address] [facility] [place] [address] Mami Balbuena MD 03/06/2025 12:04 AM EDT - 03/08/2025 10:40 AM EDT Hospital Encounter [facility] MOTHER BABY 4B [address] [place] [address] Aydin Kirkpatrick MD Discharge Disposition: Home or Self Care 03/06/2025 Travel 03/06/2025 - 03/06/2025 11:59 PM EDT Hospital Encounter [facility] LABOR AND DELIVERY PROCEDURES [address] [place] [address] Discharge Disposition: Home or Self Care 03/02/2025 9:30 AM EDT Routine [facility] OBGYN [address] [facility] [address] [place] [address] Kartik Maurice APRN GA: 36w3d 03/02/2025 Travel 02/27/2025 10:50 AM EDT Ancillary Procedure [facility] OBGYN [address] [facility] [address] [place] [phone] 36 weeks gestation of ; Chronic hypertension affecting 02/27/2025 9:40 AM EDT Routine [facility] OBGYN [address] [facility] [address] [place] [address] Aydin Kirkpatrick MD GA: 36w0d 02/27/2025 Prep for Surgery [facility] ORDERS ONLY [address] [place] [address] Aydin Kirkpatrick MD 02/27/2025 Travel 02/23/2025 3:15 PM EDT Routine [facility] OBGYN [address] [facility] [address] [place] [phone] Kartik Maurice, MATT GA: 35w3d 02/23/2025 2:15 PM EDT Office Visit [facility] MATERNAL MEDICINE [address] [facility] [address] [place] [phone] Medhat De Anda MD Chronic hypertension affecting (Primary Dx); Poor growth affecting management of mother in third trimester, single or unspecified fetus 02/23/2025 2:03 PM EDT - 02/23/2025 11:59 PM EDT Hospital Encounter [facility] US PER DIAG CTR [address] [place] [address] Aydin Kirkpatrick MD Poor growth affecting management of mother in third trimester, single or unspecified fetus Discharge Disposition: Home or Self Care 02/23/2025 Travel 02/20/2025 9:50 AM EDT Routine [facility] [address] [facility] [address] [place] [address] Aydin Kirkpatrick MD GA: 35w0d 02/20/2025 Travel 02/18/2025 10:19 PM EDT - 02/19/2025 8:03 AM EDT Hospital Encounter [facility] LABOR DELIVERY [address] [place] [address] Aydin Kirkpatrick MD Forester, Corey Blake, MD Discharge Disposition: Home or Self Care 02/18/2025 Travel 02/16/2025 2:15 PM EDT Routine [facility] OBGYN [address] [address] Kartik Maurice APRN GA: 34w3d 02/16/2025 Travel 02/13/2025 7:05 PM EDT Lab [facility] LABORATORY [address] [place] [address] care, third trimester 02/13/2025 9:30 AM EDT Routine [facility] OBGYN [address] [facility] [address] Aydin Kirkpatrick MD GA: 34w0d 02/13/2025 Travel 02/11/2025 Results Follow-Up [facility] OBGYN [address] [facility] [address] Shania Schwab SCABBLER 02/09/2025 11:15 AM EDT Routine [facility] OBGYN [address] [facility] [address] [place] [address] Shania Schwab APRN GA: 33w3d 02/09/2025 Travel 02/07/2025 Results Follow-Up [facility] OBGYN [address] [facility] [address] [place] [phone] Aydin Kirkpatrick MD 02/06/2025 1:10 PM EDT Routine [facility] OBGYN [address] [facility] [address] [place] [address] Aydin Kirkpatrick MD GA: 33w0d 02/06/2025 Travel 02/03/2025 3:30 PM EDT Ancillary Procedure [facility] OBGYN [address] [facility] [address] [place] [phone] History of pre-eclampsia in prior , currently ; 32 weeks gestation of ; Essential hypertension; NST (non-stress test) nonreactive 02/03/2025 2:30 PM EDT Routine [facility] OBGYN [address] [facility] [address] [place] [address] Rosie Domingo APRN GA: 32w4d 02/03/2025 Travel 01/30/2025 Telephone [facility]YN [address] [facility] [address] [place] [phone] Aydin Kirkpatrick MD 01/23/2025 9:29 PM EDT - 01/27/2025 1:22 PM EDT Hospital Encounter [facility] ANTEPARTUM [address] [place] [address] Arturo Feliz MD Gardner, Lex J, MD Discharge Disposition: Home or Self Care 01/23/2025 Travel 01/18/2025 Telephone [facility] OBGYN [address] [facility] [address] [place] [phone] Arturo Feliz MD 01/12/2025 Results Follow-Up [facility] OBGYN [address] [facility] [address] [place] [phone] Arturo Feliz MD 01/11/2025 10:15 AM EDT Routine [facility] OBGYN [address] [facility] [address] [place] [phone] Arturo Feliz MD GA: 29w2d 01/11/2025 9:15 AM EDT Office Visit [facility] MATERNAL MEDICINE [address] [facility] [address] [address] [place] [address] Rashad Mayer MD History of pre-eclampsia in prior , currently (Primary Dx); Proteinuria affecting , antepartum; Essential hypertension 01/11/2025 9:09 AM EDT - 01/11/2025 11:59 PM EDT Hospital Encounter [facility] US PER DIAG CTR [address] [place] [address] Rashad Mayer MD History of pre-eclampsia in prior , currently ; , unspecified gestational age; Proteinuria affecting , antepartum; Morbid obesity with BMI of 45.0-49.9, adult; WPW (Hsmdi-Gpkljqvwl-Wt ite syndrome); Essential hypertension Discharge Disposition: Home or Self Care 01/11/2025 Travel 01/03/2025 Telephone [facility] OBGYN [address] [facility] [address] [place] [address] Arturo Feliz MD 12/29/2024 7:05 PM EDT - 01/01/2025 8:13 AM EDT Hospital Encounter [facility] ANTEPARTUM [address] [place] [address] Arturo Feliz MD Discharge Disposition: Home or Self Care from Last 3 Months Immunizations Immunization Administration Dates Next Due -influenza Vac Quardvalent Preservativ 05/10/2018 DTaP / Hep B / IPV 03/17/2005 DTaP, Unspecified 01/19/2006, 5,10/29/2001,2001 Hep B, Unspecified 03/02/2001,2000 Hib (PRP-OMP) 03/17/2005,10/29/2001,08/31/2001 IPV 05/19/2005,10/29/2001 MMR 05/19/2005,10/29/2001,08/31/2001 Polio, Unspecified 08/31/2001 Tdap 01/11/2025,10/13/2023 Varicella 03/17/2005 Family History Medical History Relation Name Comments Diabetes Father Kenan Riley. Hypertension Father Kenan Riley. Diabetes type II Mother Hypertension Mother Diabetes Niece Diabetes Sister Annette Riley. Diabetes type II Sister Annette Riley. Relation Name Status Comments Father Kenan Riley. Mother Niece Alive Sister Annette Riley. Social History Tobacco Use Types Packs/Day Years Used Date Smoking Tobacco: Former Cigarettes Q uit: 01/2024 Passive Smoke Exposure: Past Smokeless Tobacco: Never Tobacco Cessation:Ready to Q uit: Not Asked; Counseling Given: Not Answered Comments:Vape. Alcohol Use Standard Drinks/Week Comments Never 0 (1 standard drink = 0.6 oz pur e alcohol) [facility] Social[employer] Answer Date Recorded In the past 12 [...] and heating? Not hard at all 03/06/2025 [facility] - Occupational [...] things needed for daily living? No 03/06/2025 Glenvil Depression Scale Answer Date Recorded Glenvil Depression Scale Total 2 03/17/2025 The thought of harming myself has occurred to me . Never 03/17/2025 Abuse Screen Answer Date Recorded Feels Unsafe [...] GED or equivalent No 03/06/2025 Preferred Language Jordanian 03/06/2025 PHQ-2 Answer Date Recorded Patient Health [...] not to disclose 2024 9:23 PM EDT Last Filed Vital Signs Vital Sign Reading [...] Mass Index 45.43 03/06/2025 12:41 AM EDT Plan of Treatment Upcoming Encounters Date Type Department Care Team (Late st Contact Info) Description 04/17/2025 1:40 PM EDT Visit [facility] OBGYN [address] [address] Aydin Kirkpatrick MD [address] [facility] [address] [place] [address] Health Maintenance Due Date Last Done Comments Annual Gynecologic Pelvic and Breast Exam 2000 HPV VACCINES (1 - 3-dose series) 2015 ANNUAL PHYSICAL 10/26/2023 COVID-19 Vaccine ( season) 2024 05/22/2021, 09/12/2020, 08/22/2020 INFLUENZA VACCINE 05/10/2025 05/10/2018 CHLAMYDIA SCREENING 02/13/2026 02/13/2025, 12/30/2024, 12/12/2024, Additional history exists PAP SMEAR 08/17/2027 08/17/2024 TDAP/TD VACCINES (3 - Td or Tdap) 01/11/2035 01/11/2025, 10/13/2023 HEPATITIS C SCREENING Completed 10/06/2024 , 10/06/2024, 08/17/2024 MENINGOCOCCAL B VACCINE Aged Out No l onger eligible based on patient's age to complete this topic Pneumococcal Vaccine 0-49 Aged Out No longer eligible based on patient's age to complete this topic Procedures Procedure Name Priority Date/Time Associated Diagnosis Comments CBC (NO DIFF) Routine 03/08/2025 5:27 AM EDT CBC AND DIFFERENTIAL Routine 03/07/2025 5:07 AM EDT CBC WITH AUTO DIFFERENTIAL Routine 03/07/2025 5:07 AM EDT TISSUE PATHOLOGY EXAM Routine 03/06/2025 5:50 AM EDT HC BH AN LABOR EPIDURAL KIT Routine 03/06/2025 5:49 AM EDT PROTEIN / CREATININE RATIO, URINE Routine 03/06/2025 1:19 AM EDT CBC (NO DIFF) Routine 03/06/2025 1:14 AM EDT FERRITIN STAT 03/06/2025 1:11 AM EDT IRON PROFILE STAT 03/06/2025 1:11 AM EDT COMPREHENSIVE METABOLIC PANEL Routine 03/06/2025 1:11 AM EDT URIC ACID Routine 03/06/2025 1:11 AM EDT LACTATE DEHYDROGENASE Routine 03/06/2025 1:11 AM EDT TREPONEMA PALLIDUM AB W/REFLEX RPR Routine 03/06/2025 1:11 AM EDT TYPE AND SCREEN Routine 03/06/2025 1:03 AM EDT POCT URINALYSIS DIPSTICK, MANUAL Routine 03/02/2025 9:58 AM EDT care, antepartum, unspecified SCANNED - PROCEDURE 03/02/2025 US BIOPHYSICAL PROFILE;WITH NON-STRESS TESTING STAT 02/27/2025 11:10 AM EDT 36 weeks gestation of Chronic hypertension affecting POCT GLUCOSE, URINE, QUALITATIVE, DIPSTICK Routine 02/27/2025 10:27 AM EDT care, third trimester 36 weeks gestation of POCT PROTEIN, URINE, QUALITATIVE, DIPSTICK Routine 02/27/2025 10:27 AM EDT care, third trimester 36 weeks gestation of SCANNED - PROCEDURE 02/27/2025 POCT GLUCOSE, URINE, QUALITATIVE, DIPSTICK Routine 02/23/2025 3:54 PM EDT care, third trimester 35 weeks gestation of POCT PROTEIN, URINE, QUALITATIVE, DIPSTICK Routine 02/23/2025 3:54 PM EDT care, third trimester 35 weeks gestation of [facility] Routine 02/23/2025 2:44 PM EDT Poor growth affecting management of mother in third trimester, single or unspecified fetus SCANNED - PROCEDURE 02/23/2025 POCT URINALYSIS DIPSTICK, MANUAL Routine 02/20/2025 10:32 AM EDT care, antepartum, unspecified SCANNED - PROCEDURE 02/20/2025 TYPE AND SCREEN Urgent 02/18/2025 11:47 PM EDT COMPREHENSIVE METABOLIC PANEL Urgent 02/18/2025 11:47 PM EDT CBC (NO DIFF) Urgent 02/18/2025 11:47 PM EDT POCT GLUCOSE, URINE, QUALITATIVE, DIPSTICK Routine 02/16/2025 2:35 PM EDT care, third trimester 34 weeks gestation of POCT PROTEIN, URINE, QUALITATIVE, DIPSTICK Routine 02/16/2025 2:35 PM EDT care, third trimester 34 weeks gestation of SCANNED - PROCEDURE 02/16/2025 GROUP B STREPTOCOCCUS CULTURE Routine 02/13/2025 6:55 PM EDT care, third trimester POCT GLUCOSE, URINE, QUALITATIVE, DIPSTICK Routine 02/13/2025 10:16 AM EDT care, third trimester 34 weeks gestation of POCT PROTEIN, URINE, QUALITATIVE, DIPSTICK Routine 02/13/2025 10:16 AM EDT care, third trimester 34 weeks gestation of PROTEIN, URINE, 24 HOUR Routine 02/13/2025 9:47 AM EDT Essential hypertension , unspecified gestational age CHLAMYDIA TRACHOMATIS, NEISSERIA GONORRHOEAE, PCR W/ CONFIRMATION Routine 02/13/2025 12:00 AM EDT care, third trimester SCANNED - PROCEDURE 02/13/2025 BILE ACIDS, TOTAL Routine 02/09/2025 12: 39 PM EDT Blurry vision Itching ALP+ALT+AST+CREAT+LD+ TBILI+.. Routine 02/09/2025 12:39 PM EDT Nonintractable headache, unspecified chronicity pattern, unspecified headache type Blurry vision Shortness of breath due to Proteinuria affecting , antepartum Chronic hypertension affecting POCT URINALYSIS DIPSTICK, MANUAL Routine 02/09/2025 12:10 PM EDT care, antepartum, unspecified BACTERIAL VAGINOSIS, EARNESTINE Routine 02/09/2025 12:00 AM EDT Itching URINE CULTURE Routine 02/09/2025 12:00 AM EDT Proteinuria affecting , antepartum Must strain to pass urine SCANNED - PROCEDURE 02/09/2025 SCANNED - PROCEDURE 02/09/2025 ALP+ALT+AST+CREAT+LD+ TBILI+.. Routine 02/06/2025 2:30 PM EDT Chronic hypertension affecting POCT URINALYSIS DIPSTICK, MANUAL Routine 02/06/2025 2:04 PM EDT care, antepartum, unspecified SCANNED - PROCEDURE 02/06/2025 US BIOPHYSICAL PROFILE;WITH NON-STRESS TESTING STAT 02/03/2025 3:47 PM EDT History of pre-eclampsia in prior , currently 32 weeks gestation of Essential hypertension NST (non-stress test) nonreactive POCT URINALYSIS DIPSTICK, MANUAL Routine 02/03/2025 3:10 PM EDT 32 weeks gestation of SCANNED - PROCEDURE 02/03/2025 [facility] Routine 01/25/2025 11:10 AM EDT POCT AMNISURE ROM TEST Routine 01/25/2025 10:43 AM EDT TYPE AND SCREEN Routine 01/23/2025 10:49 PM EDT COMPREHENSIVE METABOLIC PANEL Routine 01/23/2025 10:49 PM EDT URIC ACID Routine 01/23/2025 10:49 PM EDT LACTATE DEHYDROGENASE Routine 01/23/2025 10:49 PM EDT TREPONEMA PALLIDUM AB W/REFLEX RPR Routine 01/23/2025 10:49 PM EDT CBC (NO DIFF) Routine 01/23/2025 10:49 PM EDT URINALYSIS, MICROSCOPIC ONLY Routine 01/23/2025 10:00 PM EDT URINALYSIS W/ CULTURE IF INDICATED STAT 01/23/2025 10:00 PM EDT URINE CULTURE STAT 01/23/2025 10:00 PM EDT SCANNED - IMAGING 01/23/2025 ANTIBODY SCREEN Routine 01/11/2025 10:55 AM EDT , unspecified gestational age Essential hypertension Proteinuria affecting , antepartum ALP+ALT+AST+CREAT+LD+ TBILI+.. Routine 01/11/2025 10:55 AM EDT , unspecified gestational age Essential hypertension Proteinuria affecting , antepartum RPR Routine 01/11/2025 10:55 AM EDT , unspecified gestational age Essential hypertension Proteinuria affecting , antepartum GESTATIONAL SCREEN 1 HR Routine 01/11/2025 10:55 AM EDT , unspecified gestational age Essential hypertension Proteinuria affecting , antepartum POCT URINALYSIS DIPSTICK, MANUAL Routine 01/11/2025 10:05 AM EDT care, antepartum, unspecified [facility] Routine 01/11/2025 9:42 AM EDT History of pre-eclampsia in prior , currently , unspecified gestational age Proteinuria affecting , antepartum Morbid obesity with BMI of 45.0-49.9, adult WPW (Dovmw-Nxqcczhlh-Xae te syndrome) Essential hypertension LIQUID-BASED PAP SMEAR WITH HPV GENOTYPING IF ASCUS, [facility] (KARAN,COR,[facility]AD) Routine 08/17/2024 3:35 PM EST Essential hypertension , unspecified gestational age OBSTETRIC PANEL Routine 08/17/2024 3:31 PM EST Essential hypertension , unspecified gestational age from Last 3 Months or Most Recently Relevant to Health Maintenance Results * (ABNORMAL) CBC (No Diff) (03/08/2025 5:27 AM EDT) Only the most recent of4 resultswithin the time period is included. WBC 11.01(H) 3.40 - 10.80 10*3/mm3 03/08/2025 [...] 5:27 AM EDT 03/08/2025 5:55 AM EDT us Kelly Patricia SCABBLER LAB BLOOD ORDERABLES Final Result [facility]
[address] [place] [address], * (ABNORMAL) CBC Auto Differential (03/07/2025 5:07 [...] 31.5 - 35.7 g/dL 03/07/2025 5:34 AM EDT [facility] RDW 15.0 12.3 - 15.4 % 03/07/2025 5:34 AM EDT [facility] RDW-SD 46.5 37.0 - 54.0 fl 03/07/2025 5:34 AM EDT [facility] MPV 11.9 6.0 - 12.0 fL 03/07/2025 5:34 AM EDT [facility] Platelets 210 140 - 450 10*3/mm3 03/07/2025 5:34 AM EDT [facility] Neutrophil % 67.5 42.7 - 76.0 % 03/07/2025 5:34 AM EDT [facility] Lymphocyte % 21.3 19.6 - 45.3 % 03/07/2025 5:34 AM EDT [facility] Monocyte % 5.8 5.0 - 12.0 % 03/07/2025 5:34 AM EDT [facility] Eosinophil % 0.9 0.3 - 6.2 % 03/07/2025 5:34 AM EDT [facility] Basophil % 0.4 0.0 - 1.5 % 03/07/2025 5:34 AM EDT [facility] Immature Grans % 4.1(H) 0.0 - 0.5 % 03/07/2025 5:34 AM EDT [facility] Neutrophils, Absolute 6.61 1.70 - 7.00 10*3/mm3 03/07/2025 5:34 AM EDT [facility] Lymphocytes, Absolute 2.09 0.70 - 3.10 10*3/mm3 03/07/2025 5:34 AM EDT [facility] Monocytes, Absolute 0.57 0.10 - 0.90 10*3/mm3 03/07/2025 5:34 AM EDT [facility] Eosinophils, Absolute 0.09 0.00 - 0.40 10*3/mm3 03/07/2025 5:34 AM EDT [facility] Basophils, Absolute 0.04 0.00 - 0.20 10*3/mm3 03/07/2025 5:34 AM EDT [facility] Immature Grans, Absolute 0.40(H) 0.00 - 0.05 10*3/mm3 03/07/2025 5:34 AM EDT [facility] nRBC 0.3(H) 0.0 - 0.2 /100 WBC 03/07/2025 5:34 AM T [facility] Blood Venipuncture / Unknown 03/07/2025 5:07 AM EDT 03/07/2025 5:16 AM EDT Aydin Kirkpatrick MD LAB BLOOD ORDERABLES Final Resu lt [facility]
[address] [place] [address], * Tissue Pathology Exam (03/06/2025 5:50 AM EDT) Case Report Surgical Pathology Report Case: [id number] Authorizing Provider: Aydin Kirkpatrick MD Collected: 03/06/2025 05:50 AM Ordering Location: [...] spongy parenchyma with no gross lesions identified. Chucking And Sawing Machine Operator sections are submitted as follows: 1A-umbilical cord with false knot and membrane roll 9U-aqoa-gewyfbhms disc with subchorionic fibrin 9J-xonn-yayrgfdbv disc at cord insertion site. LDP 03/07/2025 11:25 AM EDT [facility] Microscopic Description The slides are reviewed and demonstrate histopathologic features supporting the above rendered diagnosis. 03/07/2025 11:25 AM EDT [facility] Tissue Placental structure / Unknown Collection / Unknown 03/06/2025 5:50 AM EDT 03/06/2025 6:11 AM EDT Aydin Kirkpatrick MD PATHOLOGY/CYTOLOGY ORDERABLES F inal Result [facility]
[address] [place] [address], * HC BH AN LABOR EPIDURAL KIT (03/06/2025 5:49 AM EDT) Narrative Mami Balbuena MD - 03/06/2025 5:49 AM EDT Mami Balbuena MD 03/06/2025 5:49 AM Labor Epidural Patient reassessed immediately prior to procedure Patient location during procedure: OB Preanesthetic Checklist Completed: patient identified, IV checked, risks and benefits discussed, surgical consent, monitors and equipment checked, pre-op evaluation and timeout performed Prep: Pt Position:sitting Fixture Builder:cap, gloves, sterile barrier, mask and gown Prep:chlorhexidine [...] Balbuena MD ANESTHESIA ORDERABLES Final Resu lt * (ABNORMAL) Protein / Creatinine Ratio, Urine - Urine, Clean Catch (03/06/2025 1:19 AM EDT) Protein/Creati nine Ratio, Urine 399.3(H) 0.0 - 200.0 mg/G Crea 03/06/2025 9:31 AM EDT [facility] Creatinine, Urine 108.2 mg/dL 03/06/2025 9:31 AM EDT [facility] Total Protein, Urine 43.2 mg/dL 03/06/2025 9:31 AM EDT [facility] Urine Urine specimen obtained by clean catch procedure / Unknown Collection / Unknown 03/06/2025 1:19 AM EDT 03/06/2025 1:19 AM EDT us Aydin Kirkpatrick MD URINE ORDERABLES Final Result Performing Organization Address [facility] Co de Phone Number [facility]
[address] [place] [address], * Treponema pallidum AB w/Reflex RPR (03/06/2025 1:11 AM EDT) Only the most recent of2 resultswithin the time period is included. Treponemal AB Total Non-Reacti ve Non-React ramya 03/06/2025 1:42 PM EDT [facility] Blood Venipuncture / Unknown 03/06/2025 1:11 AM EDT 03/06/2025 1:11 AM EDT Narrative [facility] - 03/06/2025 1:42 PM EDT Reactive results will reflex RPR testing. us Aydin Kirkpatrick MD LAB BLOOD ORDERABLES Final Resu lt Performing Organization Address City/[facility]/ZIP Co de Phone Number [facility]
[address] [place] [address], [place] [phone] * (ABNORMAL) Iron Profile w/o Ferritin (03/06/2025 [...] EDT 03/06/2025 2:53 AM EDT us Aydin Kirkpatrick MD LAB BLOOD ORDERABLES Final Resu lt Performing Organization Address [facility] de Phone Number [facility]
[address] [place] [address], * (ABNORMAL) Uric Acid (03/06/2025 1:11 AM EDT) Only the most recent of2 resultswithin the time period is included. Uric Acid 6.6(H) 2.4 - 5.7 mg/dL 03/06/2025 3:12 AM EDT [facility] Comment:Falsely depressed re sults may occur on samples drawn from patients receiving N-Acetylcysteine (NAC) or Metamizole. Blood Venipuncture / Unknown 03/06/2025 1:11 AM EDT 03/06/2025 2:53 AM EDT us Aydin Kirkpatrick MD LAB BLOOD ORDERABLES Final Resu lt Performing Organization Address [facility]/ZIP Co de Phone Number [facility]
[address] [place] [address], [place] [phone] * Lactate Dehydrogenase (03/06/2025 1:11 AM EDT) Only the most recent of2 resultswithin the time period is included. LDH 187 135 - 214 U/L 03/06/2025 3:12 AM EDT [facility] Blood Venipuncture / Unknown 03/06/2025 1:11 AM EDT 03/06/2025 2:53 AM EDT us Aydin Kirkpatrick MD LAB BLOOD ORDERABLES Final Resu lt Performing Organization Address City/[facility]/ZIP Co de Phone Number [facility]
[address] [place] [address], * (ABNORMAL) Ferritin (03/06/2025 1:11 AM EDT) Ferritin 7.88(L) 13.00 - 150.00 ng/mL 03/06/2025 6:36 AM EDT [facility] Blood Venipuncture / Unknown 03/06/2025 1:11 AM EDT 03/06/2025 2:53 AM EDT Narrative [facility] - 03/06/2025 6:36 AM EDT Results may be falsely decreased if patient taking Biotin. us Aydin Kirkpatrick MD LAB BLOOD ORDERABLES Final Resu lt Performing Organization Address [facility] Co de Phone Number [facility]
[address] [place] [address], [place] [phone] * (ABNORMAL) Comprehensive Metabolic Panel (03/06/2025 1:11 AM EDT) Only the most recent of3 resultswithin the time period is included. Glucose 84 65 - 99 mg/dL 03/06/2025 [...] 8.6 - 10.5 mg/dL 03/06/2025 3:12 AM T [facility] Total Protein 6.3 6.0 - 8.5 g/dL 03/06/2025 3:12 AM EDT [facility] Albumin 3.4(L) 3.5 - 5.2 g/dL 03/06/2025 3:12 AM [facility] ALT (SGPT) 22 1 - 33 U/L 03/06/2025 3:12 AM T [facility] AST (SGOT) 16 1 - 32 U/L 03/06/2025 3:12 AM T [facility] Alkaline Phosphatase 113 39 - 117 U/L 03/06/2025 3:12 AM EDT [facility] Total Bilirubin 0.7 0.0 - 1.2 mg/dL 03/06/2025 3:12 AM [facility] Globulin 2.9 gm/dL 03/06/2025 3:12 AM T [facility] Comment:Calculated Result A/G Ratio 1.2 g/dL 03/06/2025 3:12 AM T [facility] BUN/Creatinine Ratio 10.2 7.0 - 25.0 03/06/2025 3:12 AM T [facility] Anion Gap 12.6 5.0 - 15.0 mmol/L 03/06/2025 3:12 AM [facility] eGFR 95.6 >60.0 mL/min/1.7 3 03/06/2025 3:12 AM [facility] Blood Venipuncture / Unknown 03/06/2025 1:11 AM EDT 03/06/2025 2:53 AM EDT [facility] - 03/06/2025 3:12 AM EDT [...] include race as a factor us Aydin Kirkpatrick MD LAB BLOOD ORDERABLES Final Resu lt Performing Organization Address City/[facility]/ZIP Co de Phone Number [facility]
[address] [place] [address], * Type & Screen (03/06/2025 1:03 AM EDT) Only the most recent of3 resultswithin the time period is included. ABO Type A 03/06/2025 1:37 AM EDT [facility] RH type Positive 03/06/2025 1:37 AM EDT [facility] Antibody Screen Negative 03/06/2025 1:37 AM EDT [facility] T&S Expiration Date 03/09/2025 11:59:59 PM 03/06/2025 1:37 AM EDT [facility] Blood Venipuncture / Unknown 03/06/2025 1:03 AM EDT 03/06/2025 1:03 AM EDT us Aydin Kirkpatrick MD BLOOD BANK TEST ORDERABLES Edit ed Result - Final Performing Organization Address [facility] Co de Phone Number [facility]
[address] [place] [address], * POC Urinalysis Dipstick (03/02/2025 9:58 AM EDT) Only the most recent of6 resultswithin the time period is included. Glucose, UA Negative Negative mg/dL [facility] Protein, POC Negative Negative mg/dL [facility] Urine 03/02/2025 9:58 AM EDT us Kartik Patrick Kaylene SCABBLER POINT OF CARE TEST O RDERABLES Final Result [facility]
[address] [place] [address], [place] [phone] * Procedure Scanned (03/02/2025) us Kartik Patrick Maurice SCABBLER PROCEDURE/MINOR SURG ICAL ORDERABLES Final Result * US Biophysical Profile;With Non-Stress Testing (02/27/2025 11:10 AM EDT) Only the most recent of2 resultswithin the time period is included. Anatomical Region Laterality Modality Body Ultrasound 02/27/2025 11:5 2 AM EDT Narrative 02/27/2025 11:12 AM EDT PAT NAME: LISA RILEY [facility] REC#: [id number] DA: 2000 PAT GEND: F PAT TYPE: O EXAM JAYSON: [id number] REF PHYS AYDIN KIRKPATRICK Indication ======== Non reactive NST; Morbid obesity BMI 45 Comparison Studies The findings of this study are compared to the prior ultrasound study dated 02/23/25 Method ======= Voluson E6, Transabdominal ultrasound examination. View: Sufficient ========= Hernandez . Number of fetuses: 1 Dating ====== [...] of testing for the condition being monitored. Machine Stone Polisher Apprentice: RT Kyle Pringle, [facility] Physician: Aydin Kirkpatrick MD Electronically signed by: Aydin Kirkpatrick MD at: 11:12 Procedure Note Aydin Kirkpatrick MD - 02/27/2025 PAT NAME: LISA RILEY MED REC#: [id number] DA: 2000 PAT GEND: F PAT TYPE: O EXAM JAYSON: [id number] REF PHYS AYDIN KIRKPATRICK Indication ======== Non reactive NST; Morbid obesity BMI 45 Comparison Studies The findings of this study are compared to the prior ultrasound studydated 02/23/25 Method ======= Voluson E6, Transabdominal ultrasound examination. View: Sufficient ========= Hrenandez . Number of fetuses: 1 Dating ====== Cycle:irregular cycle Method of dating:based on stated CONG GA by prior [id number] w + 0 d CONG by prior assessment:03/27/2025 Previous Ultrasound on:07/25/2024 Type of prior assessment:GS mean Previous dating:based on stated CONG, selected on 02/03/2025 Agreed CONG of previous datin03/27/2025 Assigned:based on stated CONG, selected on 02/27/2025 Assigned GA36 w + 0 d Assigned CONG:03/27/2025 [id number] d General Evaluation Cardiac activity present. FHR 173 bpm. movements visualized. Presentation cephalic. Placenta Placental site: posterior. Amniotic Fluid Assessment Amount of AF: normal MVP 3.8 cm. ELIZABETH 11.7 cm. Q1 2.3 cm, Q2 2.9 cm, Q3 3.8 cm, Q4 2.8 cm Biophysical Profile 2: breathing movements 2: Gross body movements 2: tone 2: Amniotic fluid volume NST: non-reactive 8/10 Biophysical profile score Interpretation: normal Anatomy Lateral ventricles:Appears normal 4-chamber view:suboptimal Stomach:Appears normal Kidneys:Appears normal Bladder:Appears normal Gender:male Wants to know gender:yes Impression Normal BPP Amniotic fluid volume is normal. Recommendation Continue the routine schedule of testing for the condition beingmonitored. Machine Stone Polisher Apprentice: RT Kyle Pringle, [facility] Physician: Aydin Kirkpatrick MD Electronically signed by: Aydin Kirkpatrick MD at: 11:12 us Aydin Kirkpatrick MD IMG US ORDERABLES Final Result * POC Protein, Urine, Qualitative, Dipstick (02/27/2025 10:27 AM EDT) Only the most recent of4 resultswithin the time period is included. Protein, POC Negative Negative mg/dL [facility] Lot Number 0 [id number] Expiration Date 0 [facility] Urine 02/27/2025 10:2 7 AM EDT us Aydin Kirkpatrick MD POINT OF CARE TEST ORDERABLES F inal Result Performing Organization Address City/[facility]/ZIP Co de Phone Number [facility]
[address] [place] [address], [place] [phone] * POC Glucose, Urine, Qualitative, Dipstick (02/27/2025 10:27 AM EDT) Only the most recent of4 resultswithin the time period is included. Glucose, UA Negative Negative mg/dL [facility] Urine 02/27/2025 10:2 7 AM EDT us Aydin Kirkpatrick MD POINT OF CARE TEST ORDERABLES F inal Result Performing Organization Address [facility]/ZIP Co de Phone Number [facility]
[address] [place] [address], [place] [phone] * Procedure Scanned (02/27/2025) us Aydin Kirkpatrick MD PROCEDURE/MINOR SURGICAL ORDERA BLES Final Result * [facility] (02/23/2025 2:44 PM EDT) Only the most recent of3 resultswithin the time period is included. Anatomical Region Laterality Modality Ultrasound 02/23/2025 2:19 PM EDT Narrative 02/23/2025 2:48 PM EDT PAT NAME: LISA RILEY MED REC#: [id number] DA: 2000 PAT GEND: F PAT TYPE: O EXAM JAYSON: [id number] REF PHYS AYDIN KIRKPATRICK Comparison Studies The findings of this study [...] View: Limited by patient body habitus ========= Hernandez . Number of fetuses: 1 Dating ====== [...] EFW (oz) 11 oz EFW by: Hadlock ([id number]) Extended Cav. septi pel. tr 5.9 mm [...] Normal Heart / Thorax 3-vessel view: Normal 7-lpkwvr-fywvlty view: normal Stomach: Appears normal Kidneys: Appears [...] Recommend 37 week delivery. Coding ======= Description: 36823-79 Follow Up Ultrasound Description: 88074-09 BPP without NST Description: 66412-56 Doppler Umbilical Artery Machine Stone Polisher Apprentice: Destini Hall RDMS Physician: Medhat De Anda MD, FACOG Electronically signed by: Medhat De Anda MD, FACOG at: 14:48 Procedure Note Medhat De Anda MD - 02/23/2025 PAT NAME: LISA RILEY MED REC#: [id number] DA: 2000 PAT GEND: F PAT TYPE: O EXAM JAYSON: [id number] REF PHYS AYDIN KIRKPATRICK Comparison Studies The findings of this study are compared to the prior ultrasound studydated 01/25/25. Patient Status Outpatient Indication ======== contractions. CHTN. Chronic proteinuria. Maternal Ghosh ParkinsonWhite. Hx PTD 35 wk - preeclampsia. Morbid obesity BMI 47 Maternal Assessment Srpnel009 cm Jnnust492 kg Weight (lb)273 lb BMI47.19 kg/m Method ======= Transabdominal ultrasound examination. View: Limited by patient bodyhabitus ========= Hernandez . Number of fetuses: 1 Dating ====== Cycle:irregular cycle GA by prior w + 3 d CONG by prior [...] GA35 w + 3 d Assigned CONG:03/27/2025 [id number] d Biometry Standard BPD85.5 mm 34w 3d 27% Hadlock DJM026.7 mm 36w 6d 79% Van HC315.5 mm 35w 3d 18% Hadlock Cerebellum tr45.4 mm 34w 6d 27% Hill AC313.1 mm 35w 2d 53% Hadlock Femur67.2 mm 34w 4d 22% Hadlock Nkfqsfk26.2 mm 34w 2d 40% Van HC / AC1.01 EFW2,567 g 34w 6d 37% Hadlock EFW (lb)5 lb EFW (oz)11 oz EFW by:Hadlock ([id number]) Extended Cav. septi pel. tr5.9 mm CM6.7 mm 26% Nicolaides Head / Face / Neck Cephalic index0.77 14% Nicolaides Extremities / Bony Struc FL / BPD0.79 FL / HC0.21 FL / AC0.21 Other Structures [id number] bpm General Evaluation Cardiac activity present. FHR 177 bpm. movements present. Presentation cephalic. Placenta Placental site: posterior, fundal. Amniotic fluid Amount of AF: normal. MVP 4.8 cm. ELIZABETH 13.6 cm. Q1 3.2 cm,Q2 4.8 cm, Q3 3.4 cm, Q4 2.3 cm. Anatomy Cranium:Normal Cavum septi pellucidi:Normal Cerebellum:Normal Cisterna magna:Normal 4-chamber view:Appears normal RVOT view:Normal LVOT view:Normal Heart / Thorax 3-vessel view:Normal 6-lzwohc-txfslei view:normal Stomach:Appears normal Kidneys:Appears normal Bladder:Appears normal [...] indicated. Recommend 37 week delivery. Coding ======= Description:32522-24 Follow Up Ultrasound Description:56495-34 BPP without NST Description:63315-11 Doppler Umbilical Artery Machine Stone Polisher Apprentice: Destini Hall RDMS Physician: Medhat De Anda MD, FACOG Electronically signed by: Medhat De Anda MD, FACOG at: 14:48 us Aydin Kirkpatrick MD IM US ORDERABLES Final Result * Procedure Scanned (02/23/2025) us Kartik Maurice APRN PROCEDURE/MINOR SURG ICAL ORDERABLES Final Result * Procedure Scanned (02/20/2025) us Aydin Kirkpatrick MD PROCEDURE/MINOR SURGICAL ORDERA BLES Final Result * Procedure Scanned (02/16/2025) us Kartik Maurice APRN PROCEDURE/MINOR SURG ICAL ORDERABLES Final Result * Group B Streptococcus Culture - Swab, Vaginal/Rectum (02/13/2025 6:55 PM EDT) Group B Strep Culture No Group B Streptococcus isolated SEAN 02/16/2025 10:43 AM EDT [facility] Swab Rectum and vagina, CS / Unknown Collection / Unknown 02/13/2025 6:55 PM EDT 02/13/2025 6:55 PM EDT Aydin Kirkpatrick MD MICROBIOLOGY - GENERAL ORDERABL ES Final Result Performing Organization Address City/[facility]/ZIP Co de Phone Number [facility]
[address] [place] [address], * (ABNORMAL) Protein, Urine, 24 Hour - Urine, Clean Catch (02/13/2025 9:47 AM EDT) Total Protein, Urine 16.3 mg/dL [facility] Protein, 24H Urine 211.9(H) 0.0 - 150.0 mg/24hours [facility] 24 Hour Urine Urine specimen obtained by clean catch procedure / Unknown 02/13/2025 9:47 AM EDT 02/13/2025 Narrative [facility] ([facility]) - 02/14/2025 3:35 AM EDT Performed at: 01 - [facility] [address] [place], [place] [id number] [place] Fixer: Fabian Cabrera MD, Phone: [phone] Arturo Feliz MD URINE ORDERABLES Final Res ult Performing Organization Address City/[facility]/ZIP Co de Phone Number [facility] ([facility]) [address] [place] [address], [facility] [address] [place] [address], * Procedure Scanned (02/13/2025) us Aydin Kirkpatrick MD PROCEDURE/MINOR SURGICAL ORDERA BLES Final Result * Chlamydia trachomatis, Neisseria gonorrhoeae, PCR w/ confirmation - Swab, Vagina (02/13/2025 12:00 AM EDT) Chlamydia trachomatis, EARNESTINE Negative Negative [facility] Neisseria gonorrhoeae, EARNESTINE Negative Negative [facility] Swab Vaginal structure / Unknown 02/13/2025 02/13/2025 Comment:Swab Release to denice young Tatyana [facility] (AMBULATORY) - 02/14/2025 8:09 PM EDT Performed at: 01 - [address] [id number] [place] Fixer: Alice Soriano MD, Phone: [phone] Aydin Kirkpatrick MD MICROBIOLOGY - GENERAL ORDERABL ES Final Result [facility] (AMBULATORY) [address] [place] [address], [facility] [address] [place] [address], * (ABNORMAL) AlP+ALT+AST+Creat+LD+TBili+.. (02/09/2025 12:39 PM EDT) Only the most recent of3 resultswithin the time period is included. Uric Acid 6.5(H) 2.6 - 6.2 mg/dL [...] 02/09/2025 12:3 9 PM EDT 02/09/2025 Narrative [facility] (AMBULATORY) - 02/10/2025 3:35 AM EDT Performed at: - [address] [id number] [place] Fixer: Edgar Mccartney PhD, Phone: [phone] us Shania Schwab APRN LAB BLOOD ORDERABLES Final R esult [facility] (AMBULATORY) [address] [place] [address], [facility] [address] [place] [address], * Bile Acids, Total (02/09/2025 12:39 PM EDT) Bile Acids Total 4.2 0.0 - 10.0 umol/L [facility] Blood 02/09/2025 12:3 9 PM EDT 02/09/2025 N[facility]ative [facility] - 02/11/2025 4:36 PM EDT Performed at: - [address] [id number] [place] Fixer: Alice Soriano MD, Phone: [phone] Shania Schwab SCABBLER LAB BLOOD ORDERABLES Final R esult [facility] (AMBULATORY) [address] [place] [id number], [place] [phone] [facility] [address] [place] [address], * (ABNORMAL) Bacterial Vaginosis, EARNESTINE - Swab, Cervix (02/09/2025 12:00 AM EDT) Atopobium Vaginae Low - 0 Score [facility] BVAB 2 Low - 0 Score [facility] Megasphaera 1 High - 2(A) [facility] Comment: Calculate total score by adding [...] Unknown 02/09/2025 02/09/2025 Comment:Swab Release to denice young Narrative [facility] (AMBULATORY) - 02/12/2025 5:08 PM EDT Test(s) 648368- Atopobium vaginae; 18000109- BVAB 2; 18000110- Megasphaera 1 was developed and its performance characteristics determined by [facility]. It has not been cleared or approved by the Food and Drug Administration. Performed at: - Lab[address] [place] [id number] [place] Fixer: Ina Couch MD, Phone: [phone] Shania Schwab APRN MICROBIOLOGY - GENERAL ORDER CATARINO Final Result [facility] ([facility]) [address] [place] [address], [place] [phone] [facility] [address] [place] [address], [place] [phone] * Procedure Scanned (02/09/2025) [facility] Onbase PROCEDURE/MINOR SURGICAL ORDE RABLES Final Result * Procedure Scanned (02/09/2025) Shania Schwab APRN PROCEDURE/MINOR SURGICAL ORD ERABLES Final Result * Urine Culture - Urine, Urine, Clean Catch (02/09/2025 12:00 AM EDT) Only the most recent of2 resultswithin the time period is included. Urine Culture Final report [facility] Result 1 Comment [facility] Comment: Mixed urogenital elmer 10,000-25,000 colony forming units per mL Urine Urine specimen obtained by clean catch procedure / Unknown 02/09/2025 02/09/2025 Comment:Urine Release to [facility] Narrative [facility] ([facility]) - 02/11/2025 3:35 AM EDT Performed at: - [facility] [address] [place], [place] [id number] Roof Fixer: Edgar Mccartney PhD, Phone: [phone] Shania Schwab APRN MICROBIOLOGY - GENERAL ORDER CATARINO Final Result [facility] ([facility]) [address] [place] [address], [place] [phone] [facility] [address] [place] [address], [place] [phone] * Procedure Scanned (02/06/2025) Aydin Kirkpatrick MD PROCEDURE/MINOR SURGICAL ORDERA BLES Final Result * Procedure Scanned (02/03/2025) Rosie Shoshana Jose L SCABBLER PROCEDURE/MINOR SURGICAL ORDE RABLES Final Result * POC Amnisure (01/25/2025 10:43 AM EDT) Amnisure Negative Negative [facility] Amniotic Fluid 01/25/2025 10 :43 AM EDT Erlinda Bingham MD POINT OF CARE TEST OR DERABLES Final Result [facility]
[address] [place] [id number], * (ABNORMAL) Urinalysis, Microscopic Only - Urine, Clean Catch (01/23/2025 10:00 PM EDT) Pathologist [facility] RBC, UA 0-2 None Seen, 0-2 /HPF 01/23/2025 10:10 PM EDT [facility] WBC, UA 6-10(A) None Seen, 0-2 /HPF 01/23/2025 10:[facility] Bacteria, UA None Seen None Seen, Trace /HPF 01/23/2025 10:10 PM EDT [facility] Squamous Epithelial Cells, UA 3-6(A) None Seen, 0-2 /HPF 01/23/2025 10:10 PM EDT [facility] Hyaline Casts, UA 0-6 0 - 6 /LPF 01/23/2025 10:10 PM EDT [facility] Methodology Automated Microscopy 01/23/2025 10:10 PM EDT [facility] Urine Urine specimen obtained by clean catch procedure / Unknown Collection / Unknown 01/23/2025 10:00 PM EDT 01/23/2025 10:00 PM EDT us Jose Wilcox MD URINE ORDERABLES Final Result [facility]
[address] [place] [address], [place] [phone] * (ABNORMAL) Urinalysis With Culture If Indicated - Urine, Clean Catch (01/23/2025 10:00 PM EDT) Color, UA Yellow Yellow, Straw 01/23/2025 10:10 PM EDT [facility] Appearance, UA Clear Clear 01/23/2025 10:10 PM EDT [facility] pH, UA 6.5 5.0 - 8.0 01/23/2025 10:10 PM EDT [facility] Specific [place], UA 1.015 1.001 - 1.030 01/23/2025 10:10 PM EDT [facility] Glucose, UA Negative Negative 01/23/2025 10:10 PM EDT [facility] Ketones, UA Negative Negative 01/23/2025 10:10 PM EDT [facility] Bilirubin, UA Negative Negative 01/23/2025 10:10 PM EDT [facility] Blood, UA Negative Negative 01/23/2025 10:10 PM EDT [facility] Protein, UA 30 mg/dL (1+)(A) Negative 01/23/2025 10:10 PM EDT [facility] Leuk Esterase, UA Trace(A) Negative 01/23/2025 10:10 PM EDT [facility] Nitrite, UA Negative Negative 01/23/2025 10:10 PM EDT [facility] Urobilinogen, UA 0.2 E.U./dL 0.2 - 1.0 E.U./dL 01/23/2025 10:10 PM EDT [facility] Urine Urine specimen obtained by clean catch procedure / Unknown Collection / Unknown 01/23/2025 10:00 PM EDT 01/23/2025 10:00 PM EDT Narrative [facility] - 01/23/2025 10:10 PM EDT In absence of clinical symptoms, the presence of pyuria, bacteria, and/or nitrites on the urinalysis result does not correlate with infection. Jose Wilcox MD URINE ORDERABLES Final Result Performing Organization Address City/[facility]/ZIP Co de Phone Number [facility]
[address] [place] [address], * IMAGING SCANNED (01/23/2025) Anatomical Region Laterality Modality Radiographic Grace ging [facility] IMG DIAGNOSTIC IMAGING ORDERA BLES Final Result * Gestational Screen 1 Hr ([facility]) (01/11/2025 10:55 AM EDT) Pathologist [facility] Gestational Diabetes Screen 132 65 - 139 mg/dL [facility] Blood 01/11/2025 10:5 5 AM EDT 01/11/2025 Narrative [facility] ([facility]) - 01/12/2025 3:35 AM EDT Performed at: [address] [place] [id number] Roof Fixer: Fabian Cabrera MD, Phone: [phone] Arturo Feliz MD LAB BLOOD ORDERABLES Final Result [facility] ([facility]) [address] [place] [address], [place] [phone] [facility] [address] [place] [address], [place] [phone] * RPR Qualitative with Reflex to Quant (01/11/2025 10:55 AM EDT) RPR Non Reactive Non Reactive [facility] Blood 01/11/2025 10:5 5 AM EDT 01/11/2025 Narrative [facility] (AMBULATORY) - 01/12/2025 5:36 AM EDT Performed at: - [facility] [address] [place] [id number] Roof Fixer: Edgar Mccartney PhD, Phone: [phone] Arturo Feliz MD LAB BLOOD ORDERABLES Final Result Performing Organization Address City/[facility] Co de Phone Number [facility] [address] [place] [address], [facility] [address] [place] [address], * Antibody Screen (01/11/2025 10:55 AM EDT) [facility] Antibody Screen Negative Negative [facility] Blood 01/11/2025 10:5 5 AM EDT 01/11/2025 [facility] (AMBULATORY) - 01/12/2025 8:12 AM EDT Performed at: - [facility] [address] [place] [id number] Roof Fixer: Edgar Mccartney PhD, Phone: [phone] Arturo Feliz MD BLOOD BANK TEST ORDERABLES Final Result Performing Organization Address [facility] de Phone Number [facility] [address] [place] [address], [facility] [address] [place] [address], * LIQUID-BASED PAP SMEAR WITH HPV GENOTYPING IF ASCUS (KARAN,COR,MAD) (08/17/2024 3:35 PM EST) [facility] Reference Lab Report [facility] [address] [place] [address] or [phone] Luis Boyle M.D., [place] PATIENT NAME LABORATORY [address]. [address] [place] [address] DARYL NOVA. [id number] AGE SEX SSN CLIENT REF # [facility] [address] 2000 F [id number] [address] [id number] RE[facility] Benoit [place] [address] ARTURO FELIZ DATE COLLECTED DATE RECEIVED DATE REPORTED 08/17/2024 08/17/2024 08/19/2024 ThinPrep Pap with Cytyc Imaging DIAGNOSIS: Negative for intraepithelial lesion or malignancy Multiple factors can influence accuracy of Pap tests; therefore, screening at regular intervals is necessary for early cancer detection. COMMENT: Benign cellular changes associated with inflammation are present. SPECIMEN ADEQUACY: SATISFACTORY FOR EVALUATION Transformation zone is present. SOURCE OF SPECIMEN: CERVICAL SLIDES: 1 CLINICAL HISTORY: Essential hypertension , unspecified gestational age ARBORER: LUIS ANTONIO HOOKER (ASCP) CPT CODES: 79408 08/19/2024 10:47 AM EST [facility] ThinPrep Vial Cervix uteri structure / Unknown Collection / Unknown 08/17/2024 3:35 PM EST 08/17/2024 3:36 PM EST us Arturo Feliz MD PATHOLOGY/CYTOLOGY ORDERAB LES Final Result [facility]
[address] [place] [address], * (ABNORMAL) Obstetric Panel (08/17/2024 3:31 PM EST) Hepatitis B Surface Ag Negative Negative [facility] Hep C Virus Ab Non Reactive Non Reactive [facility] Comment: HCV antibody alone does not differentiate between previously resolved infection and active infection. Equivocal and Reactive HCV antibody results should be followed up with an HCV RNA test to support the diagnosis of active HCV infection. RPR Non Reactive Non Reactive [facility] Rubella Antibodies, IgG 2.80 Immune >0.99 index [facility] Comment: Non-immune <0.90 Equivocal 0.90 - 0.99 Immune >0.99 ABO Type A [facility] Rh Factor Positive [facility] Comment: Please note: Prior records for this patient's ABO / Rh type are not available for additional verification. Antibody Screen Negative Negative [facility] WBC 10.2 3.4 - 10.8 x10E3/uL [facility] RBC 4.41 3.77 - 5.28 x10E6/uL [facility] Hemoglobin 11.5 11.1 - 15.9 g/dL [facility] Hematocrit 35.5 34.0 - 46.6 % [facility] MCV 81 79 - 97 fL [facility] MCH 26.1(L) 26.6 - 33.0 pg [facility] MCHC 32.4 31.5 - 35.7 g/dL [facility] RDW 14.3 11.7 - 15.4 % [facility] Platelets 317 150 - 450 x10E3/uL [facility] Neutrophil Rel % 64 Not Estab. % [facility] Lymphocyte Rel % 29 Not Estab. % [facility] Monocyte Rel % 5 Not Estab. % [facility] Eosinophil Rel % 1 Not Estab. % [facility] Basophil Rel % 0 Not Estab. % [facility] Neutrophils Absolute 6.5 1.4 - 7.0 x10E3/uL [facility] Lymphocytes Absolute 2.9 0.7 - 3.1 x10E3/uL [facility] Monocytes Absolute 0.5 0.1 - 0.9 x10E3/uL [facility] Eosinophils Absolute 0.1 0.0 - 0.4 x10E3/uL [facility] Basophils Absolute 0.0 0.0 - 0.2 x10E3/uL [facility] Immature Granulocyte Rel % 1 Not Estab. % [facility] Immature Grans Absolute 0.1 0.0 - 0.1 x10E3/uL [facility] Blood 08/17/2024 3:31 PM EST 08/18/2024 Narrative [facility] ([facility]) - 08/18/2024 10:35 AM EST Performed at: 01 - [facility] [address] [id number] Roof Fixer: Edgar Mccartney PhD, Phone: [phone] us Arturo Feliz MD LAB BLOOD ORDERABLES Final Result [facility] ([facility]) [address] [place] [address], [facility] [address] [place] [address], from Last 3 Months or Most Recently Relevant to Health Maintenance Insurance [facility] Directives * CPR (Attempt to Resuscitate) (Latest Code Status on File) Date Activated Date Inactivated Comments 03/06/2025 7:56 AM 03/08/2025 12:57 PM Question Answer Comments Code Status (Patient has no pulse and is not breathing): CPR (Attempt to Resuscitate) Medical Interventions (Patie nt has pulse or is breathing): Full * CPR (Attempt to Resuscitate) Date Activated Date Inactivated Comments 03/06/2025 12:19 AM 03/06/2025 7:56 AM Question Answer Comments Code Status (Patient has no pulse and is not breathing): CPR (Attempt to Resuscitate) Medical Interventions (Patie nt has pulse or is breathing): Full Support Level Of Support Discussed With: Patient * CPR (Attempt to Resuscitate) Date Activated Date Inactivated Comments 01/23/2025 10:28 PM 01/27/2025 3:58 PM Question Answer Comments Code Status (Patient has no pulse and is not breathing): CPR (Attempt to Resuscitate) Medical Interventions (Patie nt has pulse or is breathing): Full Support Level Of Support Discussed With: Patient * CPR (Attempt to Resuscitate) Date Activated Date Inactivated Comments 12/30/2024 11:04 PM 01/01/2025 11:19 AM Question Answer Comments Code Status (Patient has no pulse and is not breathing): CPR (Attempt to Resuscitate) Medical Interventions (Patie nt has pulse or is breathing): Full Support Level Of Support Discussed With: Patient * CPR (Attempt to Resuscitate) Date Activated Date Inactivated Comments 12/29/2024 7:53 PM 12/30/2024 11:04 PM Question Answer Comments Code Status (Patient has no pulse and is not breathing): CPR (Attempt to Resuscitate) Medical Interventions (Patie nt has pulse or is breathing): Full Support Level Of Support Discussed With: Patient Care Teams Ladle Liner Helper Relationship Specialty Start Date End Date Jefe Schwartz MD [address] [facility] [address] [facility] [address] [facility] [place] [address] PCP - General Adolescent Medicine 12/14/23
--- OUTSIDE RECORDS SUMMARY | 2025-04-03 10:27 | XMS_ITS | Encounter Summary ---
Author Organization [facility] Address [address] [place] [address] Care Team Providers Care Bedspread Folder Name Role Phone Jefe Schwartz MD Primary Care Provider [phone] Encounter Details Date Type Department Care Team (Latest Contact Info) Description 02/27/2025 Travel Social History Tobacco Use Types Packs/Day Years Used Date Smoking Tobacco: Former Cigarettes Q uit: 01/2024 Smokeless Tobacco: Never Comments:Vape. Alcohol Use Standard Drinks/Week Comments Never 0 (1 standard drink = 0.6 oz pur e alcohol) [facility] Utilities Answer Date Recorded In the past 12 months has [employer] electric, gas, oil, or water company threatened [...] and heating? Not hard at all 02/18/2025 [facility] [place] of Occupat ional Health - Occupational Stress [...] things needed for daily living? No 02/18/2025 Ernul Depression Scale Answer Date Recorded Retired Ernul Depression Score 11 02/23/2024 Retired EPD Scale: [...] GED or equivalent No 02/18/2025 Preferred Language Israeli 02/18/2025 PHQ-2 Answer Date Recorded Patient Health [...] Visit [facility] OBGYN [address] [facility] [address] [place] [address] Aydin Crowe MD 17[address] [facility] [address] [place] [address] documented as of this encounter Visit Diagnoses Not on filedocumented in this encounter Care Teams Bedspread Folder Relationship Specialty Start Date End Date Jefe Schwartz MD [address] [facility] [address] [place] [address] PCP - General Adolescent Medicine 12/14/23 documented as of this encounter
--- OUTSIDE RECORDS SUMMARY | 2025-04-03 10:31 | XMS_ITS | Encounter Summary ---
Author Organization [facility] Address [address] [place] [address] Care Team Providers Care General Assignment Reporter Name Role Phone Jefe Schwartz MD Primary Care Provider [phone] Encounter Details Date Type Department Care Team (Late st Contact Info) Description 03/17/2025 Maternal Screening [facility] N[facility]SE CALL [facility] [address] [place] [phone] Ivanna Downing, RN Social History Tobacco Use Types Packs/Day Years Used Date Smoking Tobacco: Former Cigarettes Q uit: 01/2024 Passive Smoke Exposure: Past Smokeless Tobacco: Never Comments:Vape. Alcohol Use Standard Drinks/Week Comments Never 0 (1 standard drink = 0.6 oz pur e alcohol) [facility] Utilities Answer Date Recorded In the past 12 months has [employer] electric, gas, oil, or water company threatened [...] and heating? Not hard at all 03/06/2025 [facility] [place] of Occupat ional Health - Occupational Stress [...] things needed for daily living? No 03/06/2025 [place] Depression Scale Answer Date Recorded [place] Depression Scale Total 2 03/17/2025 The thought [...] GED or equivalent No 03/06/2025 Preferred Language [place] Islander 03/06/2025 PHQ-2 Answer Date Recorded Patient Health [...] as of this encounter Miscellaneous Notes * Outreach Note - Ivanna Downign RN - 03/17/2025 9:11 AM EDT Maternal Screening Survey Flowsheet Row Responses Facility patient discharged from? [facility] Attempt successful? Yes Call start time 926 Call end time 927 I have been able to laugh and see the funny side of things. 0 I have looked forward with enjoyment to things. 0 I have blamed myself unnecessarily when things went wrong. 2 I have been anxious or worried for no good reason. 0 I have felt scared or panicky for no good reason. 0 Things have been getting on top of me. 0 I have been so unhappy that I have had difficulty sleeping. 0 I have felt sad or miserable. 0 I have been so unhappy that I have been crying. 0 The thought of harming myself has occurred to me. 0 [place] Depression Scale Total 2 Did any of your parents have problems with alcohol or drug use? No Do any of your peers have problems with alcohol or drug use? No Does your partner have problems with alcohol or drug use? No Before you were did you have problems with alcohol or drug use? (past) No In the past month, did you drink beer, wine, liquor or use any other drugs? () No Maternal Screening call completed Yes Ivanna Elliott - Registered Nurse documented in this encounter Plan of Treatment Upcoming Encounters Date Type Department Care Team (Late st Contact Info) Description 04/17/2025 1:40 PM EDT Visit [facility] OBGYN [address] [facility] [address] [place] [address] Aydin Crowe MD 1700 [facility] [address] [place] [address] documented as of this encounter Visit Diagnoses Not on filedocumented in this encounter Care Teams General Assignment Reporter Relationship Specialty Start Date End Date Jefe Schwartz MD 1210 [facility] [address] [facility] [address] [place] [address] PCP - General Adolescent Medicine 12/14/23 documented as of this encounter
--- OUTSIDE RECORDS SUMMARY | 2025-04-03 10:31 | XMS_ITS | Encounter Summary ---
Author Organization [facility] Address [address] [place] [address] Care Team Providers Care Legal Activity Adjudicator Name Role Phone Jefe Schwartz MD Primary Care Provider [phone] Encounter Details Date Type Department Care Team (Late st Contact Info) Description 03/09/2025 Maternal Screening [facility] NURSE CALL CENTER [address] [place] [phone] Aracelis Mueller, RN Social History Tobacco Use Types Packs/Day Years Used Date Smoking Tobacco: Former Cigarettes Q uit: 01/2024 Passive Smoke Exposure: Past Smokeless Tobacco: Never Comments:Vape. Alcohol Use Standard Drinks/Week Comments Never 0 (1 standard drink = 0.6 oz pur e alcohol) [facility] Utilities Answer Date Recorded In the past 12 months has [employer] electric, gas, oil, or water company threatened [...] and heating? Not hard at all 03/06/2025 [facility] of Occupat ional Health - Occupational Stress [...] things needed for daily living? No 03/06/2025 [place] Depression Scale Answer Date Recorded [place] Depression Scale Total 8 03/06/2025 The thought [...] GED or equivalent No 03/06/2025 Preferred Language Sudanese 03/06/2025 PHQ-2 Answer Date Recorded Patient Health [...] encounter Miscellaneous Notes * Outreach Note - Aracelis Mueller RN - 03/09/2025 10:33 AM EDT Maternal Screening Survey Flowsheet Row Responses Eligibility Eligible Prep survey completed? Yes Facility patient discharged from? [facility] - Registered Nurse documented in this encounter Plan of Treatment Upcoming Encounters Date Type Department Care Team (Late st Contact Info) Description 04/17/2025 1:40 PM EDT Visit [facility] OBGYN [address] [facility] [address] [place] [address] Aydin Crowe MD 1700 [facility] [address] [place] [address] documented as of this encounter Visit Diagnoses Not on filedocumented in this encounter Care Teams Legal Activity Adjudicator Relationship Specialty Start Date End Date Jefe Schwartz MD 1210 [facility] [address] [place] [address] PCP - General Adolescent Medicine 12/14/23 documented as of this encounter
--- OUTSIDE RECORDS SUMMARY | 2025-04-03 10:33 | XMS_ITS | Encounter Summary ---
Author Organization [facility] Address [address] [place] [address] Care Team Providers Care Community Advocate Name Role Phone Jefe Schwartz MD Primary Care Provider [phone] Encounter Details Date Type Department Care Team (Latest Contact Info) Description 03/06/2025 Travel Social History Tobacco Use Types Packs/Day Years Used Date Smoking Tobacco: Former Cigarettes Q uit: 01/2024 Passive Smoke Exposure: Past Smokeless Tobacco: Never Comments:Vape. Alcohol Use Standard Drinks/Week Comments Never 0 (1 standard drink = 0.6 oz pur e alcohol) [facility] Utilities Answer Date Recorded In the past 12 months has [employer] electric, gas, oil, or water company threatened [...] and heating? Not hard at all 03/06/2025 [facility] of Occupat ional Health - Occupational Stress [...] things needed for daily living? No 03/06/2025 [place] Depression Scale Answer Date Recorded [place] Depression Scale Total 8 03/06/2025 The thought [...] GED or equivalent No 03/06/2025 Preferred Language Honduran 03/06/2025 PHQ-2 Answer Date Recorded Patient Health [...] 03/06/2025 12:42 AM Chelsy Chan RN * Williamson Suicide Severity Rating Scale (Screener/Recent Self-Report) Question Answer Date of Assessment Author 6. Suicidal Behavior (Lifetime) No 12:42 AM EDT Chelsy Ness RN * Question Answer Date of Assessment Author Little interest or pleasure in doing things Not at all 03/06/2025 12:58 AM EDT Chelsy Ness R N Feeling down, depressed, or hopeless Not at all 03/06/2025 12:58 AM EDT Chelsy Ness R N documented as of this encounter Plan of Treatment Upcoming Encounters Date Type Department Care Team (Late st Contact Info) Description 04/17/2025 1:40 PM EDT Visit [facility] OBGYN 1700 [facility] [address] [place] [address] Aydin Crowe MD 1700 [facility] [address] [place] [address] documented as of this encounter Visit Diagnoses Not on filedocumented in this encounter Care Teams Community Advocate Relationship Specialty Start Date End Date Jefe Schwartz MD 1210 [facility] [address] [place] [address] PCP - General Adolescent Medicine 12/14/23 documented as of this encounter
--- OUTSIDE RECORDS SUMMARY | 2025-04-03 10:33 | XMS_ITS | Encounter Summary ---
Author Organization Healthcare Address [address] [place] [address] Care Team Providers Care Grease Buffer Name Role Phone System, Provider Not In MD Primary Care Provider Unavailable Reason for Referral * Consultation (Routine) - Closed Specialty Diagnoses / Procedures Referred By Jeanne roberts Referred To Contact Nephrology Diagnoses Proteinuria complicating , unspecified trimester Izaiah Mcdaniels MD [address] [facility] [address] [place] [address] Phone: tel: fax: [facility] Nephrology, Bone & Mineral Metabolism [address] [facility], [address] [place] [address] Phone: tel: fax: Referral ID Status Reason Start Date Expiration Date V isits Requested Visits Authorized [id number] Closed Specialty Services Required 09/27/2024 03/29/2026 1 1 Encounter Details Date Type Department Care Team (Late st Contact Info) Description 09/27/2024 [facility] Orders [facility] [address] [place] [address] Izaiah Mcdaniels MD [address] [place] [address] Proteinuria complicating , unspecified trimester (Primary Dx) [...] Description 06/30/2025 1:20 PM EST Office Visit [facility] [address] [place] [phone] Duke White MD [address] [place] [address] Scheduled Referrals Name Type Priority Associated Diagnoses Orde r Schedule Ambulatory referral to Nephrology Outpatient Referral Routine Proteinuria complicating , unspecified trimester Expected: 09/27/2024 (Approximate), Expires: 03/27/2026 documented as of this encounter Visit Diagnoses Diagnosis Proteinuria complicating , unspecified trimester- Primary documented in this encounter Care Teams Grease Buffer Relationship Specialty Start Date End Date System, Provider Not In, [place] [address] PCP - General Family Medicine 09/29/24 documented as of this encounter
[2025-04-03 11:13] VITALS: BP 116/58; PULSE 68; RESP 18; TEMP 36.6; O2SAT 98
== END 2025-04-03 11:13 | disposition home or self-care (01) ==
LOC: INF 09:45
PROVIDERS: PCP Nurse Practitioner Family; Visit Provider Internal Medicine Medical Oncology
DX: D50.9 Iron deficiency anemia, unspecified (principal)
CPT/HCPCS: 96365; J1756

== ENCOUNTER 2025-04-07 11:06 | Outpatient (CLI) | payer OTHER, SELFPAY ==
--- OUTSIDE RECORDS SUMMARY | 2025-02-06 13:10 | XMS_ITS | Encounter Summary ---
Author Organization [facility] Address [address] [place] [address] Care Team Providers Care Shot Lighter Name Role Phone Jefe Schwartz MD Primary Care Provider [phone] Reason for Visit * Reason Comments Routine Visit Non-stress Test 33w0d Encounter Details Date Type Department Care Team (Late st Contact Info) Description 02/06/2025 1:10 PM EDT Routine [facility] OBGYN [address] [phone] Aydin Crowe MD [address] [place] [address] [place]: 33w0d Social History Tobacco Use Types Packs/Day Years Used Date Smoking Tobacco: Former Cigarettes Q uit: 01/2024 Smokeless Tobacco: Never Comments:Vape. Alcohol Use Standard Drinks/Week Comments Never 0 (1 standard drink = 0.6 oz pur e alcohol) [facility] Utilities Answer Date Recorded In the past 12 months has [employer], gas, oil, or water [employer] threatened to shut off services in your [...] and heating? Not hard at all 01/23/2025 [facility] - Occupational Stress Questionnaire Answer Date Recorded [...] things needed for daily living? No 01/23/2025 [place] Depression Scale Answer Date Recorded Retired [place] Depression Score 11 02/23/2024 Retired EPD Scale: [...] GED or equivalent No 01/23/2025 Preferred Language Cape Verdean 01/23/2025 PHQ-2 Answer Date Recorded Patient Health [...] Sign Reading Time Taken Comments Blood Pressure 116/68 02/06/2025 2:03 PM EDT Pulse - - Temperature - - Respiratory Rate - - Oxygen Saturation - - Inhaled Oxygen Concentration - - Weight 122 kg (268 lb 9.6 oz) 02/06/2025 2:03 PM EDT Height - - Body Mass Index 44.7 01/23/2025 10:15 PM EDT documented in this encounter Progress Notes * Aydin Crowe MD - 02/06/2025 1:10 PM EDT Images from the original note were not included. OB FOLLOW UP CC- Here for care of Lisa Trevino is a 24 y.o. 33w0d patient being seen today for her obstetrical follow up visit. Patient reports BH contractions and intermittent cramping. Her care is complicated by (and status) : see below. and Chronic HTN. Her average BP has been 120s/80s. Patient Active Problem List Diagnosis WPW (Hpknj-Mfqyirosr-Lgkfv syndrome) SVT (supraventricular tachycardia) Herpes simplex type 2 (HSV-2) infection affecting , antepartum Obesity in , antepartum Cigarette smoker History of pre-eclampsia in prior , currently Chronic hypertension affecting Proteinuria affecting , antepartum Autoimmune disorder Iron deficiency anemia secondary to inadequate dietary iron intake labor in third trimester without delivery TDAP status: received at last visit Rhogam status: was not indicated 28 week labs: Reviewed and Labs show anemia. She is taking additional iron supplement. Ultrasound Today: No Non Stress Test: Yes minutes 20 non-stress test: NST: Reactive indication: Hypertension ROS - Patient Denies: Loss of Fluid, Vaginal Spotting, Vision Changes, Headaches, Nausea , Vomiting , Epigastric pain, and skin itching Movement : normal Other than what is documented in the HPI, all other systems reviewed and are negative. The additional following portions of the patient's history were reviewed and updated as appropriate: allergies, current medications, past family history, past medical history, past social history, past surgical history, and problem list. I have reviewed and agree with the HPI, ROS, and historical information as entered above. Aydin Crowe MD BP 116/68 Wt 122 kg (268 lb 9.6 oz) LMP 05/24/2024 BMI 44.70 kg/m?? EXAM: Vitals BP: 116/68 Weight: 122 kg (268 lb 9.6 oz) Heart Rate: NST Urine Glucose Read-only: Negative Urine Protein Read-only: Negative Assessment and Plan Problem List Items Addressed This Visit Chronic hypertension affecting Overview 12/12/2023; H/o IOL at 35 5/7wk chronic hypertension with superimposed preeclampsia ( -24) 07/25/2024 patient was noted to have high [...] low on labetalol 100 mg twice daily. PDC growth ultrasounds at 28 and 32 weeks. Consider weekly biophysical profile post 32 weeks. Relevant Medications labetalol (NORMODYNE) 100 MG tablet Other Relevant Orders AlP+ALT+AST+Creat+LD+TBili+.. Proteinuria affecting , antepartum - Primary Overview 2+ protein on clean-catch on urinalysis. Has collection kit for 24-hour urine. Preeclampsia labs normal except for elevated uric acid. Proteinuria has worsened since last December; 619 mg/ 24 hr. PDC appointment at 20 weeks. Nephrology appointment 10/20/2024 Urinalysis 11/23/2024 was negative protein. labor in third trimester without delivery Other Visit Diagnoses care, antepartum, unspecified Relevant Orders POC Urinalysis Dipstick (Completed) at 33w0d status reassuring. 28 week labs reviewed. Activity and Exercise discussed. movement/PTL or Labor precautions Discussed likely 37-week delivery. Continue to monitor. Return in about 3 days (around 02/09/2025) for NST. Aydin Crowe MD 02/06/2025 documented in this encounter Plan of Treatment Upcoming Encounters Date Type Department Care Team (Late st Contact Info) Description 04/17/2025 1:40 PM EDT Visit [facility] O[facility]YN [address] [facility] [address] [place] [phone] Aydin Crowe MD 1700 [facility] [address] [place] [address] documented as of this encounter Procedures Procedure Name Priority Date/Time Associated Diagnosis Comments ALP+ALT+AST+CREAT+L D+TBILI+.. Routine 02/06/2025 2:30 PM EDT Chronic hypertension affecting POCT URINALYSIS DIPSTICK, MANUAL Routine 02/06/2025 2:04 PM EDT care, antepartum, unspecified SCANNED - PROCEDURE 02/06/2025 documented in this encounter Results * (ABNORMAL) AlP+ALT+AST+Creat+LD+TBili+.. (02/06/2025 2:30 PM EDT) Uric Acid 6.8(H) 2.4 - 5.7 mg/dL [facility] Creatinine 0.88 0.57 - 1.00 mg/dL [facility] EGFR Result 94.2 >60.0 mL/min/1.7 3 [facility] Comment: GFR Categories in Chronic Kidney Disease (CKD) GFR Category GFR (mL/min/1.73) Interpretation G1 90 or greater Normal or high (1) G2 60-89 Mild decrease (1) G3a 45-59 Mild to moderate decrease G3b 30-44 Moderate to severe decrease G4 15-29 Severe decrease G5 14 or less Kidney failure (1)In the absence of evidence of kidney disease, neither GFR category G1 or G2 fulfill the criteria for CKD. eGFR calculation 2020 CKD-EPI creatinine equation, which does not include race as a factor Total Bilirubin 0.7 0.0 - 1.2 mg/dL [facility] Alkaline Phosphatase 100 39 - 117 U/L [facility] LDH 202 135 - 214 U/L [facility] AST (SGOT) 14 1 - 32 U/L [facility] ALT (SGPT) 23 1 - 33 U/L [facility] WBC 11.61(H) 3.40 - 10.80 10*3/mm3 [facility] RBC 3.42(L) 3.77 - 5.28 10*6/mm3 [facility] Hemoglobin 9.3(L) 12.0 - 15.9 g/dL [facility] Hematocrit 28.5(L) 34.0 - 46.6 % [facility] MCV 83.3 79.0 - 97.0 fL [facility] MCH 27.2 26.6 - 33.0 pg [facility] MCHC 32.6 31.5 - 35.7 g/dL [facility] RDW 14.7 12.3 - 15.4 % [facility] Platelets 245 140 - 450 10*3/mm3 [facility] Neutrophil Rel % 72.5 42.7 - 76.0 % [facility] Lymphocyte Rel % 18.5(L) 19.6 - 45.3 % [facility] Monocyte Rel % 4.6(L) 5.0 - 12.0 % [facility] Eosinophil Rel % 0.9 0.3 - 6.2 % [facility] Basophil Rel % 0.4 0.0 - 1.5 % [facility] Neutrophils Absolute 8.42(H) 1.70 - 7.00 10*3/mm3 [facility] Lymphocytes Absolute 2.15 0.70 - 3.10 10*3/mm3 [facility] Monocytes Absolute 0.53 0.10 - 0.90 10*3/mm3 [facility] Eosinophils Absolute 0.10 0.00 - 0.40 10*3/mm3 [facility] Basophils Absolute 0.05 0.00 - 0.20 10*3/mm3 [facility] Immature Granulocyte Rel % 3.1(H) 0.0 - 0.5 % [facility] Immature Grans Absolute 0.36(H) 0.00 - 0.05 10*3/mm3 [facility] nRBC 0.0 0.0 - 0.2 /100 WBC [facility] Blood 02/06/2025 2:30 PM EDT 02/06/2025 Narrative [facility] - 02/07/2025 3:35 AM EDT Performed at: [address] [place] [id number] Sign Painter Apprentice: Fabian Cabrera MD, Phone: [phone] us Aydin Crowe MD LAB BLOOD ORDERABLES Final Resu lt [facility]) [address] [place] [address], [facility] [address] [place] [address], [place] [phone] * POC Urinalysis Dipstick (02/06/2025 2:04 PM EDT) Glucose, UA Negative Negative mg/dL [facility] Protein, POC Negative Negative mg/dL [facility] Urine 02/06/2025 2:04 PM EDT us Aydin Crowe MD POINT OF CARE TEST ORDERABLES F inal Result [facility]
[address] [place] [address], * Procedure Scanned (02/06/2025) us Aydin Crowe MD PROCEDURE/MINOR SURGICAL ORDERA BLES Final Result documented in this encounter Visit Diagnoses Diagnosis Proteinuria affecting , antepartum- Primary care, antepartum, unspecified Chronic hypertension affecting labor in third trimester without delivery documented in this encounter Care Teams Shot Lighter Relationship Specialty Start Date End Date Jefe Schwartz MD [address] [facility] [address] [facility] [address] [place] [address] PCP - General Adolescent Medicine 12/14/23 documented as of this encounter
--- OUTSIDE RECORDS SUMMARY | 2025-02-09 11:15 | XMS_ITS | Encounter Summary ---
Author Organization [facility] Address [address] [place] [address] Care Team Providers Care Managed Security Sales Consultant Name Role Phone Jefe Schwartz MD Primary Care Provider [phone] Reason for Visit * Reason Comments Routine Visit Non-stress Test Encounter Details Date Type Department Care Team (Late st Contact Info) Description 02/09/2025 11:15 AM EDT Routine [facility] [address] [place] [phone] Shania Ledezma, PLANT ATTENDANT OR ASSISTANT OPERATOR [address] [facility] [address] [place] [address] GA: 33w3d Social History Tobacco Use Types Packs/Day Years Used Date Smoking Tobacco: Former Cigarettes Q uit: 01/2024 Smokeless Tobacco: Never Comments:Vape. Alcohol Use Standard Drinks/Week Comments Never 0 (1 standard drink = 0.6 oz pur e alcohol) [facility] Utilities Answer Date Recorded In the past 12 months has [employer], gas, oil, or water [employer] threatened to shut off services in your [...] and heating? Not hard at all 01/23/2025 [facility] Health - Occupational Stress Questionnaire Answer Date [...] things needed for daily living? No 01/23/2025 [place] Depression Scale Answer Date Recorded Retired [place] Depression Score 11 02/23/2024 Retired EPD Scale: [...] GED or equivalent No 01/23/2025 Preferred Language Martiniquais 01/23/2025 PHQ-2 Answer Date Recorded Patient Health [...] Sign Reading Time Taken Comments Blood Pressure 114/68 02/09/2025 11:56 AM EDT Pulse 112 02/09/2025 11:56 AM EDT Temperature 37 C (98.6 F) 02/09/2025 11:56 AM EDT Respiratory Rate - - Oxygen Saturation 98% 02/09/2025 11:56 AM EDT Inhaled Oxygen Concentration - - Weight 123 kg (270 lb 6.4 oz) 02/09/2025 11:56 A M EDT Height - - Body Mass Index 45 01/23/2025 10:15 PM EDT documented in this encounter Progress Notes * Shania Ledezma APRN - 02/09/2025 11:15 AM EDTAddended by: SHANIA LEDEZMA on: 02/09/2025 01:08 PM Modules accepted: Orders * Dilcia Calero MA - 02/09/2025 11:15 AM EDTAddended by: DILCIA CALERO on: 02/09/2025 05:28 PM Modules accepted: Orders * Dilcia Calero MA - 02/09/2025 11:15 AM EDTAddended by: DILCIA CALERO on: 02/09/2025 05:29 PM Modules accepted: Orders * Shania Ledezma APRN - 02/09/2025 11:15 AM EDT Images from the original note were not included. OB FOLLOW UP CC- Here for care of Lisa Trevino is a 24 y.o. 33w3d patient being seen today for her obstetrical follow up visit. Patient reports strain with urination that has been going on for 2 weeks, every 2 hours she reports bh-ctx, nausea for 1 week, vomiting helps with nausea, swelling in feet, hands, headache not relieved by Tylenol or rest and her BP's at home have been 120-130/80-85. Patient reports that she has a constant trickle after she urinates. Decrerased movement today but has felt hiccups and rolls. Headache that is still there but improved with tylenol. Blurry vision but can't explain how. Chest heaviness/soa same as has been with dx of WPW Her care is complicated by (and status) : see below. Patient Active Problem List Diagnosis WPW (Dokji-Dpymvnbbb-Jdosn syndrome) SVT (supraventricular tachycardia) Herpes simplex type 2 (HSV-2) infection affecting , antepartum Obesity in , antepartum Cigarette smoker History of pre-eclampsia in prior , currently Chronic hypertension affecting Proteinuria affecting , antepartum Autoimmune disorder Iron deficiency anemia secondary to inadequate dietary iron intake labor in third trimester without delivery TDAP status: 01/11/2025 Rhogam status: was not indicated 28 week labs: Reviewed and Labs show anemia. She is taking additional iron supplement. Ultrasound Today: No Non Stress Test: Yes minutes 20 non-stress test: NST: Reactive indication: Hypertension ROS - Patient Denies: Vaginal Spotting, Vision Changes, Epigastric pain, and skin itching Movement : normal Other than what is documented in the HPI, all other systems reviewed and are negative. The additional following portions of the patient's history were reviewed and updated as appropriate: allergies and current medications. I have reviewed and agree with the HPI, ROS, and historical information as entered above. Shania Kvng Ledezma, PLANT ATTENDANT OR ASSISTANT OPERATOR BP 114/68 Pulse 112 Temp 98.6 ??F (37 ??C) (Oral) Wt 123 kg (270 lb 6.4 oz) LMP 05/24/2024 SpO2 98% BMI 45.00 kg/m?? EXAM: Vitals BP: 114/68 Weight: 123 kg (270 lb 6.4 oz) Heart Rate: NST (Decreased movement per patient) Physical Exam Constitutional: General: She is not in acute distress. Appearance: She is obese. She is not ill-appearing, toxic-appearing or diaphoretic. Genitourinary: Urethral meatus normal. Genitourinary Comments: Clear discharge minimal amt Uterus is enlarged. Pulmonary: Effort: Pulmonary effort is normal. No respiratory distress. Abdominal: Palpations: Abdomen is soft. Musculoskeletal: General: Normal range of motion. Neurological: Mental Status: She is alert and oriented to person, place, and time. Skin: General: Skin is warm and dry. Psychiatric: Mood and Affect: Mood normal. Behavior: Behavior normal. Thought Content: Thought content normal. Judgment: Judgment normal. Vitals and nursing note reviewed. Exam conducted with a stock analyst present. Urine Glucose Read-only: Negative Urine Protein Read-only: (!) 1+ Assessment and Plan Problem List Items Addressed This Visit Cardiac and Vasculature WPW (Fggho-Qivyakdmt-Cleyb syndrome) Overview Dr. Fernando in [place] Echo & 2 week holter monitor in August 2023 wnl per patient. PDC appt 11/04; ultrasound within normal limits and normal growth. EFW 57%. No follow-up ultrasound scheduled. Relevant Medications labetalol (NORMODYNE) 100 MG tablet Gravid and Chronic hypertension affecting Overview 12/12/2023; H/o IOL at 35 5/7wk chronic hypertension with superimposed preeclampsia ( --24) 07/25/2024 patient was noted to have high [...] (NORMODYNE) 100 MG tablet Other Relevant Orders Protein, Urine, 24 Hour - Urine, Clean Catch AlP+ALT+AST+Creat+LD+TBili+.. CBC (No Diff) Proteinuria affecting , antepartum Overview 2+ protein on clean-catch on urinalysis. Has collection kit for 24-hour urine. Preeclampsia labs normal except for elevated uric acid. Proteinuria has worsened since last December; 619 mg/ 24 hr. PDC appointment at 20 weeks. Nephrology appointment 10/20/2024 Urinalysis 11/23/2024 was negative protein. Relevant Orders Protein, Urine, 24 Hour - Urine, Clean Catch AlP+ALT+AST+Creat+LD+TBili+.. Urine Culture - Urine, Urine, Clean Catch Other Visit Diagnoses care, antepartum, unspecified - Primary Relevant Orders POC Urinalysis Dipstick (Completed) Nonintractable headache, unspecified chronicity pattern, unspecified headache type Relevant Orders Protein, Urine, 24 Hour - Urine, Clean Catch AlP+ALT+AST+Creat+LD+TBili+.. CBC (No Diff) Blurry vision Relevant Orders Protein, Urine, 24 Hour - Urine, Clean Catch AlP+ALT+AST+Creat+LD+TBili+.. CBC (No Diff) Bile Acids, Total Shortness of breath due to Relevant Orders Protein, Urine, 24 Hour - Urine, Clean Catch AlP+ALT+AST+Creat+LD+TBili+.. CBC (No Diff) Itching Relevant Orders Bile Acids, Total Must strain to pass urine Relevant Orders Urine Culture - Urine, Urine, Clean Catch at 33w3d status reassuring. 20 min NST 15 x 15 reactive, Cat 1, No contractions or decelerations noted. 28 week labs reviewed. Activity and Exercise discussed. movement/PTL or Labor precautions Lab(s) Ordered Patient is on vitamins Reviewed Pre-eclampsia signs/symptoms Discussed bASA for PIH prevention from 12 to 36wk 24 Hour urine, PEP, Bile acids and CBC drawn today for multiple complaints. Reviewed Pre-eclampsia signs/symptoms-Headache not relieved by tylenol or rest, chest pain, shortness of breath, right upper quadrant pain, blurry vision. Monitor blood pressure at home call providerif above 140/90 consistently. Leaking-Nitrazine neg, pooling neg, ferning neg. Nuswab sent. Go to ED if worsening chest pain/SOA. Hx WPW denies needing ED right now VSS Follow up Thursday for NST Shania Ledezma APRN 02/09/2025 documented in this encounter Plan of Treatment Upcoming Encounters Date Type Department Care Team (Late st Contact Info) Description 04/17/2025 1:40 PM EDT Visit [facility] [address] [address] Aydin Crowe MD [address] [place] [phone] documented as of this encounter Procedures Procedure Name Priority Date/Time Associated Diagnosis Comments ALP+ALT+AST+CREAT+L D+TBILI+.. Routine 02/09/2025 12:39 PM EDT Nonintractable headache, unspecified chronicity pattern, unspecified headache type Blurry vision Shortness of breath due to Proteinuria affecting , antepartum Chronic hypertension affecting BILE ACIDS, TOTAL Routine 02/09/2025 12: 39 PM EDT Blurry vision Itching POCT URINALYSIS DIPSTICK, MANUAL Routine 02/09/2025 12:10 PM EDT care, antepartum, unspecified BACTERIAL VAGINOSIS, EARNESTINE Routine 02/09/2025 12:00 AM EDT Itching SCANNED - PROCEDURE 02/09/2025 SCANNED - PROCEDURE 02/09/2025 URINE CULTURE Routine 02/09/2025 12:00 AM EDT Proteinuria affecting , antepartum Must strain to pass urine documented in this encounter Results * Bile Acids, Total (02/09/2025 12:39 PM EDT) Bile Acids Total 4.2 0.0 - 10.0 umol/L [facility] Blood 02/09/2025 12:3 9 PM EDT 02/09/2025 Narrative [facility] (AMBULATORY) - 02/11/2025 4:36 PM EDT Performed at: [address] [place] [id number] Practice Nurse: Alice Soriano MD, Phone: [phone] us Shania Ledezma APRN LAB BLOOD ORDERABLES Final R esult [facility] [employer] (AMBULATORY) [address] [place] [address], [place] [phone] [facility] [address] [place] [address], [place] [phone] * (ABNORMAL) AlP+ALT+AST+Creat+LD+TBili+.. (02/09/2025 12:39 PM EDT) Uric Acid 6.5(H) 2.6 - 6.2 mg/dL [facility] Comment:Therapeutic target f or gout patients: <6.0 Creatinine 0.92 0.57 - 1.00 mg/dL [facility] EGFR Result 89 >59 mL/min/1.7 3 [facility] Total Bilirubin 0.5 0.0 - 1.2 mg/dL [facility] Alkaline Phosphatase 104 44 - 121 IU/L [facility] LDH 184 119 - 226 IU/L [facility] AST (SGOT) 16 0 - 40 IU/L [facility] ALT (SGPT) 27 0 - 32 IU/L [facility] WBC 10.8 3.4 - 10.8 x10E3/uL [facility] RBC 3.60(L) 3.77 - 5.28 x10E6/uL [facility] Hemoglobin 9.6(L) 11.1 - 15.9 g/dL [facility] Hematocrit 30.8(L) 34.0 - 46.6 % [facility] MCV 86 79 - 97 fL [facility] MCH 26.7 26.6 - 33.0 pg [facility] MCHC 31.2(L) 31.5 - 35.7 g/dL [facility] RDW 14.8 11.7 - 15.4 % [facility] Platelets 268 150 - 450 x10E3/uL [facility] Neutrophil Rel % 69 Not Estab. % [facility] Lymphocyte Rel % 21 Not Estab. % [facility] Monocyte Rel % 5 Not Estab. % [facility] Eosinophil Rel % 1 Not Estab. % [facility] Basophil Rel % 0 Not Estab. % [facility] Neutrophils Absolute 7.5(H) 1.4 - 7.0 x10E3/uL [facility] Lymphocytes Absolute 2.2 0.7 - 3.1 x10E3/uL [facility] Monocytes Absolute 0.6 0.1 - 0.9 x10E3/uL [facility] Eosinophils Absolute 0.1 0.0 - 0.4 x10E3/uL [facility] Basophils Absolute 0.0 0.0 - 0.2 x10E3/uL [facility] Immature Granulocyte Rel % 4 Not Estab. % [facility] Immature Grans Absolute 0.4(H) 0.0 - 0.1 x10E3/uL [facility] Comment: (An elevated percentage of Immature Granulocytes has not been found to be clinically significant as a sole clinical predictor of disease. Does NOT include bands or blast cells. associated physiological leukocytosis may also show increased immature granulocytes without clinical significance.) Blood 02/09/2025 12:3 9 PM EDT 02/09/2025 [facility] ([facility]) - 02/10/2025 3:35 AM EDT Performed at: 01 - [facility] [address] [facility], [place], [place] [id number] Practice Nurse: Edgar Mccartney PhD, Phone: [phone] Shania Ledezma APRN LAB BLOOD ORDERABLES Final R esult [facility] ([facility]) [address] [place] [address], [place] [phone] [facility] [address] [place] [address], [place] [phone] * (ABNORMAL) POC Urinalysis Dipstick (02/09/2025 12:10 PM EDT) Color Dark Yellow Yellow, Straw, Dark Yellow, Lena [facility] Clarity, UA Clear Clear [facility] Glucose, UA Negative Negative mg/dL [facility] Bilirubin Negative Negative [facility] Ketones, UA Negative Negative [facility] Specific [place] 1.015 1.005 - 1.030 [facility] Blood, UA Negative Negative [facility] pH, Urine 6.0 5.0 - 8.0 [facility] Protein, POC 1+(A) Negative mg/dL [facility] Urobilinogen, UA 0.2 E.U./dL Normal, 0.2 E.U./dL [facility] Leukocytes Negative Negative [facility] Nitrite, UA Negative Negative [facility] Urine 02/09/2025 12:1 0 PM EDT us Shania Ledezma APRN POINT OF CARE TEST ORDERABLE S Final Result [facility]
[address] [place] [address], * Procedure Scanned (02/09/2025) [facility] Onbase PROCEDURE/MINOR SURGICAL ORDE RABLES Final Result * Procedure Scanned (02/09/2025) Shania Ledezma APRN PROCEDURE/MINOR SURGICAL ORD ERABLES Final Result * (ABNORMAL) Bacterial Vaginosis, EARNESTINE - Swab, Cervix (02/09/2025 12:00 AM EDT) Atopobium Vaginae Low - 0 Score [facility] BVAB 2 Low - 0 Score [facility] Megasphaera 1 High - 2(A) Score [facility] Comment: Calculate total score by adding the 3 individual bacterial vaginosis (BV) marker scores together. Total score is interpreted as follows: Total score 0-1: Indicates the absence of BV. Total score 2: Indeterminate for BV. Additional clinical data should be evaluated to establish a diagnosis. Total score 3-6: Indicates the presence of BV. Swab Cervix uteri structure / Unknown 02/09/2025 02/09/2025 Comment:Swab Release to denice e Narrative [facility] (AMBULATORY) - 02/12/2025 5:08 PM EDT Test(s) 490608- Atopobium vaginae; 754974- BVAB 2; 171945- Megasphaera 1 was developed and its performance characteristics determined by [facility]. It has not been cleared or approved by the Food and Drug Administration. Performed at: 01 - [address] [id number] Practice Nurse: Ina Couch MD, Phone: [phone] Shania Ledezma APRN MICROBIOLOGY - GENERAL ORDER CATARINO Final Result [facility] [address] [place] [address], [facility] [address] [place] [address], * Urine Culture - Urine, Urine, Clean Catch (02/09/2025 12:00 AM EDT) Urine Culture Final report [facility] Result 1 Comment [facility] Comment: Mixed urogenital elmer 10,000-25,000 colony forming units per mL Urine Urine specimen obtained by clean catch procedure / Unknown 02/09/2025 02/09/2025 Comment:Urine Release to petey negron Tatyana [facility] [employer] (AMBULATORY) - 02/11/2025 3:35 AM EDT Performed at: - [address] [id number] Practice Nurse: Edgar Mccartney PhD, Phone: [phone] us Shania Ledezma APRN MICROBIOLOGY - GENERAL ORDER CATARINO Final Result [facility] (AMBULATORY) [address] [place] [address], [place] [phone] [facility] [address] [place] [address], documented in this encounter Visit Diagnoses Diagnosis care, antepartum, unspecified - Primary Nonintractable headache, unspecified chronicity pattern, unspecified headache type Blurry vision Other specified visual disturbances Shortness of breath due to Itching Unspecified pruritic disorder Proteinuria affecting , antepartum Chronic hypertension affecting WPW (Bebab-Sdbqbumtv-Edibx syndrome) Anomalous atrioventricular excitation Must strain to pass urine documented in this encounter Care Teams Managed Security Sales Consultant Relationship Specialty Start Date End Date Jefe Schwartz MD [address] [place] [address] [address] COUNT INCLUDES THE [facility] [place] [address] PCP - General Adolescent Medicine 12/14/23 documented as of this encounter
--- OUTSIDE RECORDS SUMMARY | 2025-02-13 09:30 | XMS_ITS | Encounter Summary ---
Author Organization [facility] Address [address] [place] [id number] Care Team Providers Care Tumblers Supervisor Name Role Phone Jefe Schwartz MD Primary Care Provider [phone] Reason for Referral * Diagnostic Imaging (Routine) - Closed Specialty Diagnoses / Procedures Referred By Contact Referred To Contact Obstetrics and Gynecology Diagnoses Poor growth affecting management of mother in third trimester, single or unspecified fetus Procedures On license of [facility] Aydin Crowe MD 1700 [facility] [address] [place] [address] Phone: tel: fax: [facility] MATERNAL MEDICINE 1700 [facility] [address] [place] [address] Phone: tel: fax: Referral ID Status Reason Start Date Expiration Date Visits Re quested Visits Authorized [id number] Closed 02/13/2025 05/15/2026 1 1 Reason for Visit * Reason Comments Routine Visit Non-stress Test Encounter Details Date Type Department Care Team (Late st Contact Info) Description 02/13/2025 9:[address] [facility] OBGYN 1700 [facility] [address] [place] [phone] Aydin Crowe MD 1700 [facility] [address] [place], [place] [id number] GA: 34w0d Social History Tobacco Use Types Packs/Day Years Used Date Smoking Tobacco: Former Cigarettes Q uit: 01/2024 Smokeless Tobacco: Never Comments:Vape. Alcohol Use Standard Drinks/Week Comments Never 0 (1 standard drink = 0.6 oz pur e alcohol) [facility] Utilities Answer Date Recorded In the past [...] and heating? Not hard at all 01/23/2025 [facility] - Occupational [...] things needed for daily living? No 01/23/2025 [place] Depression Scale Answer Date Recorded Retired [place] Depression Score 11 02/23/2024 Retired EPD Scale: [...] GED or equivalent No 01/23/2025 Preferred Language Barbadian 01/23/2025 PHQ-2 Answer Date Recorded Patient Health [...] below. Patient Active Problem List Diagnosis WPW (Kfiyx-Ygmxlvwqg-Vrkvi syndrome) SVT (supraventricular tachycardia) Herpes simplex type [...] Pending culture results from Dr. Cordero in [facility]. 10/11/2023 HSV 2 IgG positive; consistent with [...] elevated. >UA 6.5 11/09/[address] [facility] Worsening of iron deficiency anemia. Hematocrit 27.8%. 1 hour glucose screen was borderline at 132. Should repeat at next visit. Relevant Orders POC Protein, Urine, Qualitative, Dipstick (Completed) POC Glucose, Urine, Qualitative, Dipstick (Completed) Poor growth affecting management of mother in third trimester Relevant Orders On license of [facility] Other Visit Diagnoses care, third [...] Info) Description 04/17/2025 1:[address] [facility] OBGYN 1700 [facility] [address] [place] [address] Aydin Crowe MD 17[address] [facility] [address] [place] [address] documented as of this encounter Procedures Procedure [...] trimester documented in this encounter Results * [facility] (02/23/2025 2:44 PM EDT) Anatomical Region Laterality Modality Ultrasound 02/23/2025 2:19 PM EDT Narrative 02/23/2025 2:48 PM EDT PAT NAME: LISA RILEY [facility] REC#: [id number] DA: 2000 PAT GEND: F PAT TYPE: O EXAM JAYSON: [id number] REF PHYS AYDIN CROWE Comparison Studies The [...] EFW (oz) 11 oz EFW by: Hadlock ([id number]-EE-OZ-FL) Extended Cav. septi pel. tr 5.9 mm [...] Normal Heart / Thorax 3-vessel view: Normal 0-xfwdou-paznuwo view: normal Stomach: Appears normal Kidneys: Appears [...] Recommend 37 week delivery. Coding ======= Description: 20933-90 Follow Up Ultrasound Description: 28130-72 BPP without NST Description: 43072-02 Doppler Umbilical Artery Tea Bag Machine Tender: Destini Hall RDMS Physician: Medhat De Anda MD, FACOG Electronically signed by: Medhat De Anda MD, FACOG at: 14:48 Procedure Note Medhat De Anda MD - 02/23/2025 PAT NAME: LISA RILEY [facility] REC#: [id number] DA: 2000 PAT GEND: F PAT TYPE: O EXAM JAYSON: [id number] REF PHYS AYDIN CROWE Comparison Studies The findings of this study are compared to the prior ultrasound studydated 01/25/25. Patient Status Outpatient Indication ======== contractions. CHTN. Chronic proteinuria. Maternal Ghosh ParkinsonWhite. Hx PTD 35 wk - preeclampsia. Morbid obesity BMI 47 Maternal Assessment Yvorgo279 cm Mxyvpi578 kg Weight (lb)273 lb BMI47.19 kg/m Method ======= Transabdominal ultrasound examination. View: Limited by patient bodyhabitus ========= Schwarz . Number of fetuses: 1 Dating ====== Cycle:irregular cycle GA by prior uibrlodqxv80 w + 3 d CONG by prior [...] GA35 w + 3 d Assigned CONG:03/27/2025 ekgnfe207 d Biometry Standard BPD85.5 mm 34w 3d 27% Hadlock UMX691.7 mm 36w 6d 79% Van HC315.5 mm 35w 3d 18% Hadlock Cerebellum tr45.4 mm 34w 6d 27% Hill AC313.1 mm 35w 2d 53% Hadlock Femur67.2 mm 34w 4d 22% Hadlock Orresaj85.2 mm 34w 2d 40% Van HC / AC1.01 EFW2,567 g 34w 6d 37% Hadlock EFW (lb)5 lb EFW (oz)11 oz EFW by:Hadlock (PLV-ZI-NN-FL) Extended Cav. septi pel. tr5.9 mm CM6.7 mm 26% Nicolaides Head / Face / Neck Cephalic index0.77 14% Nicolaides Extremities / Bony Struc FL / BPD0.79 FL / HC0.21 FL / AC0.21 Other Structures UDQ105 bpm General Evaluation Cardiac activity present. FHR 177 bpm. movements present. Presentation cephalic. Placenta Placental site: posterior, fundal. Amniotic fluid Amount of AF: normal. MVP 4.8 cm. ELIZABETH 13.6 cm. Q1 3.2 cm,Q2 4.8 cm, Q3 3.4 cm, Q4 2.3 cm. Anatomy Cranium:Normal Cavum septi pellucidi:Normal Cerebellum:Normal Cisterna magna:Normal 4-chamber view:Appears normal RVOT view:Normal LVOT view:Normal Heart / Thorax 3-vessel view:Normal 9-iqrbym-iecrvov view:normal Stomach:Appears normal Kidneys:Appears normal Bladder:Appears normal [...] indicated. Recommend 37 week delivery. Coding ======= Description:63110-95 Follow Up Ultrasound Description:61780-71 BPP without NST Description:77109-46 Doppler Umbilical Artery Tea Bag Machine Tender: Destini Hall RDMS Physician: Medhat De Anda MD, FACOG Electronically signed by: Medhat De Anda MD, FACOG at: 14:48 us Aydin Crowe MD IMG US ORDERABLES Final Result * Group B Streptococcus Culture - Swab, Vaginal/Rectum (02/13/2025 6:55 PM EDT) Group B Strep Culture No Group B Streptococcus isolated SEAN 02/16/2025 10:43 AM EDT [facility] Swab Rectum and vagina, CS / Unknown Collection / Unknown 02/13/2025 6:55 PM EDT 02/13/2025 6:55 PM EDT us Aydin Crowe MD MICROBIOLOGY - GENERAL ORDERABL ES Final Result [facility]
[address] [place] [id number], [place] [phone] * POC Glucose, Urine, Qualitative, Dipstick (02/13/2025 10:16 AM EDT) Glucose, UA Negative Negative mg/dL [facility] Urine 02/13/2025 10:1 6 AM EDT us Aydin Crowe MD POINT OF CARE TEST ORDERABLES F inal Result Performing Organization Address [facility]/State/ZIP Co de Phone Number [facility]
[address] [place] [address], [place] [phone] * POC Protein, Urine, Qualitative, Dipstick (02/13/2025 10:16 AM EDT) Protein, POC Negative Negative mg/dL [facility] Lot Number 0 [facility] Expiration Date 0 [facility] Urine 02/13/2025 10:1 6 AM EDT us Aydin Crowe MD POINT OF CARE TEST ORDERABLES F inal Result [facility]
[address] [place] [address], [place] [phone] * Procedure Scanned (02/13/2025) us Aydin Crowe [...] - 02/14/2025 8:09 PM EDT Performed at: [address] [place] [id number] Director Operating: Alice Soriano MD, Phone: [phone] us Aydin Crowe MD MICROBIOLOGY - GENERAL ORDERABL ES Final Result Performing Organization Address City/[facility]/ZIP Co de Phone Number [facility]) [address] [place] [address], [place] [phone] [facility] [address] [place] [address], [place] [phone] documented in this encounter Visit Diagnoses Diagnosis [...] fetus documented in this encounter Care Teams Tumblers Supervisor Relationship Specialty Start Date End Date Jefe Schwartz MD [address] [facility] [address] [place] [address] PCP - General Adolescent Medicine 12/14/23 documented as of this encounter
--- OUTSIDE RECORDS SUMMARY | 2025-02-13 19:05 | XMS_ITS | Encounter Summary ---
[facility] Address [address] [place] [address] Care Team Providers Care Sustainable Agriculture Specialist Name Role Phone Jefe Schwartz MD Primary Care Provider [phone] Encounter Details Date Type Department Care Team (Late st Contact Info) Description 02/13/2025 7:05 PM EDT Lab [facility] LABORATORY [address] [place] [phone] care, third trimester Social History Tobacco Use Types Packs/Day Years Used Date Smoking Tobacco: Former Cigarettes Q uit: 01/2024 Smokeless Tobacco: Never Comments:Vape. Alcohol Use Standard Drinks/Week Comments Never 0 (1 standard drink = 0.6 oz pur e alcohol) [facility] Utilities Answer Date Recorded In the past 12 months has [employer] electric, gas, oil, or water company threatened [...] and heating? Not hard at all 02/18/2025 [facility] [place] of Occupat ional Health - Occupational Stress [...] things needed for daily living? No 02/18/2025 [place] Depression Scale Answer Date Recorded Retired [place] Depression Score 11 02/23/2024 Retired EPD Scale: [...] GED or equivalent No 02/18/2025 Preferred Language [place] Citizen 02/18/2025 PHQ-2 Answer Date Recorded Patient Health [...] Info) Description 04/17/2025 1:40 PM EDT Visit [facility] OBGYN [address] [phone] Aydin Crowe MD [address] [address] documented as of this encounter Procedures Procedure Name Priority Date/Time Associated Diagnosis Comments GROUP B STREPTOCOCCUS CULTURE Routine 02/13/2025 6:55 PM EDT care, third trimester documented in this encounter Results * Group B Streptococcus Culture - Swab, Vaginal/Rectum (02/13/2025 6:55 PM EDT) Group B Strep Culture No Group B Streptococcus isolated SEAN 02/16/2025 10:43 AM EDT [facility] Swab Rectum and vagina, CS / Unknown Collection / Unknown 02/13/2025 6:55 PM EDT 02/13/2025 6:55 PM EDT Aydin Crowe MD MICROBIOLOGY - GENERAL ORDERABL ES Final Result [facility]
[address] [place] [address], documented in this encounter Visit Diagnoses Diagnosis care, third trimester documented in this encounter Care Teams Sustainable Agriculture Specialist Relationship Specialty Start Date End Date Jefe Schwartz MD [facility] [address] [facility] [address] [place] [address] PCP - General Adolescent Medicine 12/14/23 documented as of this encounter
--- OUTSIDE RECORDS SUMMARY | 2025-02-16 14:15 | XMS_ITS | Encounter Summary ---
Author Organization [facility] Address [address] [place] [address] Care Team Providers Care Bilingual School Psychologist Name Role Phone Jefe Schwartz MD Primary Care Provider [phone] Reason for Referral * OBGYN (Routine) - Authorized Specialty Diagnoses / Procedures Referred By Contact Referred To Contact Obstetrics and Gynecology Diagnoses care, third trimester 34 weeks gestation of Chronic hypertension affecting Procedures Nonstress Test Kartik Maurice APRN [address] [place] [address] Phone: tel: fax: [facility] [address] [address] Phone: tel: fax: Referral ID Status Reason Start Date Expiration Date V isits Requested Visits Authorized [id number] Authorized 02/16/2025 05/18/2026 1 1 Reason for Visit * Reason Comments Non-stress Test Routine Visit Encounter Details Date Type Department Care Team (Late st Contact Info) Description 02/16/2025 2:15 PM EDT Routine [facility] [address] [address] Kartik Maurice APRN [address] [place] [id number] [place]: [id number] Social History Tobacco Use Types Packs/Day Years Used Date Smoking Tobacco: Former Cigarettes Q uit: 01/2024 Smokeless Tobacco: Never Comments:Vape. Alcohol Use Standard Drinks/Week Comments Never 0 (1 standard drink = 0.6 oz pur e alcohol) [facility] Utilities Answer Date Recorded In the past 12 months has th e [employer], gas, oil, or water [employer] threatened to shut off services in your [...] and heating? Not hard at all 01/23/2025 [facility] of Occupat ional Health - Occupational Stress [...] things needed for daily living? No 01/23/2025 [place] Depression Scale Answer Date Recorded Retired [place] Depression Score 11 02/23/2024 Retired EPD Scale: [...] GED or equivalent No 01/23/2025 Preferred Language Gambian 01/23/2025 PHQ-2 Answer Date Recorded Patient Health [...] below. Patient Active Problem List Diagnosis WPW (Lzbnq-Grniyhhpl-Uxcef syndrome) SVT (supraventricular tachycardia) Herpes simplex type [...] information as entered above. Kartik Patrick Maurice, ASSOCIATE MEDIA DIRECTOR BP 118/70 Wt 122 kg (269 lb 12.8 oz) LMP 05/24/2024 BMI 44.90 kg/m?? EXAM: Vitals BP: 118/70 Weight: 122 kg (269 lb 12.8 oz) Heart Rate: NST+ Dilation/Effacement/Station Dilation: 3 Effacement (%): 60 Urine Glucose Read-only: Negative Urine Protein Read-only: Negative Assessment and Plan Problem List Items Addressed This Visit WPW (Rclnt-Qwmiwokum-Gmzgh syndrome) Overview Dr. Fernando in [place] [facility] & 2 week holter monitor in [...] antepartum Overview BMI 44 Anomaly scan at [facility]. History of pre-eclampsia in prior , [...] Info) Description 04/17/2025 1:40 PM EDT Visit [facility] [address] [place] [address] Aydin Crowe MD [address] [facility] [address] [place] [address] Scheduled Orders Name Type Priority Associated Diagnoses [...] EDT) Glucose, UA Negative Negative mg/dL [facility] Urine 02/16/2025 2:35 PM EDT us Kartik Maurice APRN POINT OF CARE TEST O RDERABLES Final Result [facility]
[address] [place] [address], * POC Protein, Urine, Qualitative, Dipstick (02/16/2025 2:35 PM EDT) Protein, POC Negative Negative mg/dL [facility] Lot Number 0 [facility] Expiration Date 0 [facility] Urine 02/16/2025 2:35 PM EDT Kartik Maurice APRN POINT OF CARE TEST O RDERABLES Final Result [facility]
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
--- OUTSIDE RECORDS SUMMARY | 2025-02-18 22:19 | XMS_ITS | Encounter Summary ---
Author Organization [facility] Address [address] [place] [address] Care Team Providers Care Bartender Server Name Role Phone Jefe Schwartz MD Primary Care Provider [phone] Reason for Visit * Reason Comments Contractions * Auth/Cert (Routine) Specialty Diagnoses / Procedures Referred By Contac t Referred To Contact Diagnoses labor in third trimester with delivery Referral ID Status Reason Start Date Expiration Date Visits Re quested Visits Authorized [id number] 1 1 Encounter Details Date Type Department Care Team (Late st Contact Info) Description 02/18/2025 10:19 PM EDT - 02/19/2025 8:03 AM EDT Hospital Encounter [facility] [address] [place] [address] Aydin Crowe MD [address] [phone] Gerardo Diaz MD [address] [address] Discharge Disposition: Home or Self Care Social History Tobacco Use Types Packs/Day Years Used Date Smoking Tobacco: Former Cigarettes Q uit: 01/2024 Smokeless Tobacco: Never Tobacco Cessation:Counseling Given: No Comments:Vape. Alcohol Use Standard Drinks/Week Comments Never 0 (1 standard drink = 0.6 oz pur e alcohol) [place] Utilities Answer Date Recorded In the past 12 months has [employer], [employer], or [employer] threatened to shut off services in your [...] and heating? Not hard at all 02/18/2025 [facility] - Occupational Stress Questionnaire Answer [...] things needed for daily living? 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 * Third Trimester of (Martiniquais) documented in this encounter Medications at Time of Discharge vitamins (PRENATABS RX) 29-1 MG tablet tablet Take 1 tablet by mouth Daily. 30 tablet 11 07/25/2024 07/25/2025 Ferric Maltol (ACCRUFeR) 30 MG capsule Take 1 capsule by mouth 2 (Two) Times a Day. Take on an empty stomach. 60 capsule 9 01/18/2025 aspirin 81 MG chewable tablet Chew 1 tablet Daily. 30 tablet 6 09/14/2024 03/08/2025 valACYclovir (VALTREX) 500 MG tablet Take 1 tablet by mouth Daily. 30 tablet 6 12/27/2024 10:36 AM EDT 12/27/2024 03/08/2025 metroNIDAZOLE (FLAGYL) 500 MG tabletIndications :Bacterial vaginosis Take 1 tablet by mouth 2 (Two) Times a Day for 7 days. 14 tablet 02/13/2025 02/20/2025 labetalol (NORMODYNE) 100 MG tablet Take 1 tablet by mouth 2 (Two) Times a Day. 60 tablet 8 01/01/2025 03/08/2025 documented as of this encounter H&P Notes * Gerardo Diaz MD - 02/19/2025 8:01 AM EDT Images from the original note were not included. [facility] [place] History and Physical Referring Provider: Aydin [...] at [address] Cordero in [place] Baseline PEP, 24 Hour urine, HGBA1C, TSH drawn at [facility] (29wk); not on medication No meds prior [...] outbreak at 27 week visit Davina Suero's Doxbg-ovfcesxk-XXC Mild LFT elevation. Anemia 28 weeks hematocrit 29%.: on iron. PDC u/s 30 wk; EFW 57% Growth ultrasound 12/01 EFW 48%. AC 66%. Psoriatic arthritis [address] Petit, then insurance not covered there, has appt with dermatology in [place] Pustular psoriasis Spontaneous vaginal delivery 12/14/2023 Urinary tract infection I have had utis on and off during Vcmtw-Owevrpogd-Kwzrr syndrome 10/26/2023 ablation 2019- dx at 16 [...] Exam by: Method: sterile vaginal exam performed ([facility]) Dilation: 4cm Effacement: Cervical Effacement: 50 Station: [...] soft by palpation Resting Tone by IUPC: [place] Units: Laboratory Results: Lab Results (last 24 hours) Procedure Component Value Units Date/Time Comprehensive Metabolic Panel [[id number]] (Abnormal) Collected: 02/18/252346 Specimen: Blood Updated: 02/19/25 [...] race as a factor CBC (No Diff) [[id number]] (Abnormal) Collected: 02/18/25 2347 Specimen: Blood Updated: [...] 02/18/2025 11:02 PM EDT Lisa Trevino [id number] CC: contractions HPI: Patient is 24 y.o. [...] Info) Description 04/17/2025 1:40 PM EDT Visit [facility] OBGYN [address] [facility] [address] [place] [phone] Aydin Crowe MD [address] [facility] [address] [place] [address] documented as of this encounter Procedures Procedure Name Priority Date/Time Associated Diagnosis Comments CBC (NO DIFF) Urgent 02/18/2025 11:47 PM EDT TYPE AND SCREEN Urgent 02/18/2025 11:47 PM EDT COMPREHENSIVE METABOLIC PANEL Urgent 02/18/2025 11:47 PM EDT documented in this encounter Results * Type & Screen (02/18/2025 11:47 PM EDT) ABO Type A 02/19/2025 12:30 AM EDT [facility] RH type Positive 02/19/2025 12:30 AM EDT [facility] Antibody Screen Negative 02/19/2025 12:30 AM EDT [facility] T&S Expiration Date 02/21/2025 11:59:59 PM 02/19/2025 12:30 AM EDT [facility] Blood Line / Unknown 02/18/2025 11 :47 PM EDT 02/18/2025 11:53 PM EDT Jose Wilcox MD BLOOD BANK TEST ORDERABLES Edit ed Result - Final [facility]
[address] [place] [address], * (ABNORMAL) Comprehensive Metabolic Panel (02/18/2025 11:47 PM EDT) Glucose 71 65 - 99 mg/dL 02/19/2025 12:32 AM EDT [facility] BUN 8.9 6.0 - 20.0 mg/dL 02/19/2025 12:32 AM EDT [facility] Creatinine 0.86 0.57 - 1.00 mg/dL 02/19/2025 12:32 AM EDT [facility] Sodium 137 136 - 145 mmol/L 02/19/2025 12:32 AM EDT [facility] Potassium 3.6 3.5 - 5.2 mmol/L 02/19/2025 12:32 AM EDT [facility] Chloride 105 98 - 107 mmol/L 02/19/2025 12:32 AM EDT [facility] CO2 20.5(L) 22.0 - 29.0 mmol/L 02/19/2025 12:32 AM EDT [facility] Calcium 8.7 8.6 - 10.5 mg/dL 02/19/2025 12:32 AM EDT [facility] Total Protein 6.0 6.0 - 8.5 g/dL 02/19/2025 12:32 AM EDT [facility] Albumin 3.2(L) 3.5 - 5.2 g/dL 02/19/2025 12:32 AM EDT [facility] ALT (SGPT) 31 1 - 33 U/L 02/19/2025 12:32 AM EDT [facility] AST (SGOT) 17 1 - 32 U/L 02/19/2025 12:32 AM EDT [facility] Alkaline Phosphatase 91 39 - 117 U/L 02/19/2025 12:32 AM EDT [facility] Total Bilirubin 0.6 0.0 - 1.2 mg/dL 02/19/2025 12:32 AM EDT [facility] Globulin 2.8 gm/dL 02/19/2025 12:32 AM EDT [facility] Comment:Calculated Result A/G Ratio 1.1 g/dL 02/19/2025 12:32 AM EDT [facility] BUN/Creatinine Ratio 10.3 7.0 - 25.0 02/19/2025 12:32 AM EDT [facility] Anion Gap 11.5 5.0 - 15.0 mmol/L 02/19/2025 12:32 AM EDT [facility] eGFR 96.9 >60.0 mL/min/1.7 3 02/19/2025 12:32 AM EDT [facility] Blood Line / Unknown 02/18/2025 11 :47 PM EDT 02/19/2025 12:04 AM EDT [facility] - 02/19/2025 12:32 AM EDT GFR [...] MD LAB BLOOD ORDERABLES Final Resu lt [facility]
[address] [place] [address], * (ABNORMAL) CBC (No Diff) (02/18/2025 11:47 PM EDT) WBC 10.04 3.40 - 10.80 10*3/mm3 02/19/2025 12:11 AM EDT [facility] RBC 3.37(L) 3.77 - 5.28 10*6/mm3 02/19/2025 12:11 AM EDT [facility] Hemoglobin 9.0(L) 12.0 - 15.9 g/dL 02/19/2025 12:11 AM EDT [facility] Hematocrit 28.3(L) 34.0 - 46.6 % 02/19/2025 12:11 AM EDT [facility] MCV 84.0 79.0 - 97.0 fL 02/19/2025 12:11 AM EDT [facility] MCH 26.7 26.6 - 33.0 pg 02/19/2025 12:11 AM EDT [facility] MCHC 31.8 31.5 - 35.7 g/dL 02/19/2025 12:11 AM EDT [facility] RDW 15.4 12.3 - 15.4 % 02/19/2025 12:11 AM EDT [facility] RDW-SD 46.4 37.0 - 54.0 fl 02/19/2025 12:11 AM EDT [facility] MPV 11.2 6.0 - 12.0 fL 02/19/2025 12:11 AM EDT [facility] Platelets 248 140 - 450 10*3/mm3 02/19/2025 12:11 AM EDT [facility] Blood Line / Unknown 02/18/2025 11 :47 PM EDT 02/19/2025 12:08 AM EDT us Jose Wilcox MD LAB BLOOD ORDERABLES Final Resu lt [facility]
[address] [place] [address], documented in this encounter Visit Diagnoses Diagnosis [...] 100mL/hr. documented in this encounter Care Teams Bartender Server Relationship Specialty Start Date End Date Jefe Schwartz MD [facility] [address] [phone] PCP - General Adolescent Medicine 12/14/23 documented as of this encounter
--- OUTSIDE RECORDS SUMMARY | 2025-02-20 09:50 | XMS_ITS | Encounter Summary ---
Author Organization [facility] Address [address] [place] [address] Care Team Providers Care Experimental Mechanic Name Role Phone Jefe Schwartz MD Primary Care Provider [phone] Reason for Visit * Reason Comments Routine Visit Non-stress Test 35w0d Encounter Details Date Type Department Care Team (Late st Contact Info) Description 02/20/2025 9:50 AM EDT Routine [facility] OBGYN [address] [phone] Aydin Crowe MD [address] [place] [address] GA: 35w0d Social History Tobacco Use Types Packs/Day Years Used Date Smoking Tobacco: Former Cigarettes Q uit: 01/2024 Smokeless Tobacco: Never Comments:Vape. Alcohol Use Standard Drinks/Week Comments Never 0 (1 standard drink = 0.6 oz pur e alcohol) [facility] Utilities Answer Date Recorded In the past 12 months has [email or web address], gas, oil, or water [employer] threatened to shut off services in your [...] and heating? Not hard at all 02/18/2025 [facility]at [facility] - Occupational Stress Questionnaire Answer Date [...] things needed for daily living? No 02/18/2025 [place] Depression Scale Answer Date Recorded Retired [place] Depression Score 11 02/23/2024 Retired EPD Scale: [...] GED or equivalent No 02/18/2025 Preferred Language Greek 02/18/2025 PHQ-2 Answer Date Recorded Patient Health [...] Sign Reading Time Taken Comments Blood Pressure 132/70 02/20/2025 10:27 AM EDT Pulse - - Temperature - - Respiratory Rate - - Oxygen Saturation - - Inhaled Oxygen Concentration - - Weight 123 kg (270 lb 6.4 oz) 02/20/2025 10:27 A M EDT Height - - Body Mass Index 45 02/18/2025 10:39 PM EDT documented in this encounter Progress Notes * Aydin Crowe MD - 02/20/2025 9:50 AM EDT Images from the original note were not included. OB FOLLOW UP CC- Here for care of Lisa Trevino is a 24 y.o. 35w0d patient being seen today for her obstetrical follow up visit. She went to L&D on 02/18/25 for labor. She was admitted for observation overnight with no cervical change and contractions went away. She was discharged 02/19/25. She reports after she left L&D, the vaginal pressure never improved. She reports cramping, RUQ pain and swe lling. None of her symptoms are new per patient. She just reports vaginal pressure has gotten more prominent the last 2 weeks. Her care is complicated by (and status) : see below. and Chronic HTN. Her average BP has been 130s/80s. Patient Active Problem List Diagnosis WPW (Naior-Juvwxqqgf-Hjvfi syndrome) SVT (supraventricular tachycardia) Herpes simplex type 2 (HSV-2) infection affecting , antepartum Obesity in , antepartum Cigarette smoker History of pre-eclampsia in prior , currently Chronic hypertension affecting Proteinuria affecting , antepartum Autoimmune disorder Iron deficiency anemia secondary to inadequate dietary iron intake labor in third trimester without delivery Poor growth affecting management of mother in third trimester Ultrasound Today: No Non Stress Test: Yes minutes 40 non-stress test: NST: Reactive indication: Hypertension ROS - Patient Denies: Loss of Fluid, Vaginal Spotting, Vision Changes, Headaches, Nausea , Vomiting , Contractions, Epigastric pain, and skin itching Movement : [...] as entered above. Aydin Crowe MD BP 132/70 Wt 123 kg (270 lb 6.4 oz) LMP 05/24/2024 BMI 45.00 kg/m?? EXAM: Vitals BP: 132/70 Weight: 123 kg (270 lb 6.4 oz) Heart Rate: NST Urine Glucose Read-only: Negative Urine Protein Read-only: Negative Assessment and Plan Problem List Items Addressed This Visit Obesity in , antepartum Overview BMI 44 Anomaly scan at [facility]. History of pre-eclampsia in prior , currently - Primary Overview On ASA 81 mg after 10 weeks gestation. Chronic hypertension affecting Overview 12/12/2023; H/o IOL at 35 5/7wk chronic hypertension with superimposed preeclampsia ( 12-12-23) 07/25/2024 patient was noted to have high [...] at 132. Should repeat at next visit. Proteinuria affecting , antepartum Overview 2+ protein on clean-catch on urinalysis. Has collection kit for 24-hour urine. Preeclampsia labs normal except for elevated uric acid. Proteinuria has worsened since last December; 619 mg/ 24 hr. PDC appointment at 20 weeks. Nephrology appointment 10/20/2024 Urinalysis 11/23/2024 was negative protein. Iron deficiency anemia secondary to inadequate dietary [...] in third trimester Other Visit Diagnoses care, antepartum, unspecified Relevant Orders POC Urinalysis Dipstick (Completed) at 35w0d status reassuring. Activity and Exercise discussed. movement/PTL or Labor precautions GBS next visit Delivery repeat plan to be determined by PDC. I assume 38 weeks given the chronic hypertension, currently medication and concurrent growth restriction. Patient understands I will defer to them. Return in about 3 days (around 02/23/2025) for after PDC. Aydin Crowe MD 02/20/2025 documented in this encounter Plan of Treatment Upcoming Encounters Date Type Department Care Team (Late st Contact Info) Description 04/17/2025 1:40 PM EDT Visit [facility]YN [address] [facility] [address] [place] [address] Aydin Crowe MD [address] [facility] [address] [place] [address] documented as of this encounter Procedures Procedure Name Priority Date/Time Associated Diagnosis Comments POCT URINALYSIS DIPSTICK, MANUAL Routine 02/20/2025 10:32 AM EDT care, antepartum, unspecified SCANNED - PROCEDURE 02/20/2025 documented in this encounter Results * POC Urinalysis Dipstick (02/20/2025 10:32 AM EDT) Glucose, UA Negative Negative mg/dL [facility] Protein, POC Negative Negative mg/dL [facility] Urine 02/20/2025 10:3 2 AM EDT us Aydin Crowe MD POINT OF CARE TEST ORDERABLES F inal Result [facility]
[address] [place] [address], [place] [phone] * Procedure Scanned (02/20/2025) us Aydin Crowe MD PROCEDURE/MINOR SURGICAL ORDERA BLES Final Result documented in this encounter Visit Diagnoses Diagnosis History of pre-eclampsia in prior , currently - Primary with other poor obstetric history , unspecified gestational age Proteinuria affecting , antepartum Iron deficiency anemia secondary to inadequate dietary iron intake care, antepartum, unspecified Chronic hypertension affecting [O10.919] Poor growth affecting management of mother in third trimester, single or unspecified fetus Obesity in , antepartum Obesity complicating , childbirth, or the puerperium, antepartum condition or complication documented in this encounter Care Teams Experimental Mechanic Relationship Specialty Start Date End Date Jefe Schwartz MD [facility] [place] [address] [address] PCP - General Adolescent Medicine 12/14/23 documented as of this encounter
--- OUTSIDE RECORDS SUMMARY | 2025-02-23 14:03 | XMS_ITS | Encounter Summary ---
Author Organization [facility] Address [address] [place] [address] Care Team Providers Care Tunnel Form Placing Supervisor Name Role Phone Jefe Schwartz MD Primary Care Provider [phone] Reason for Referral * Diagnostic Imaging (Routine) - Closed Specialty Diagnoses / Procedures Referred By Contact Referred To Contact Obstetrics and Gynecology Diagnoses Poor growth affecting management of mother in third trimester, single or unspecified fetus Procedures [facility] Diagnostic [place] Aydin Crowe MD [address] [place] [address] Phone: tel: fax: [facility] MATERNAL MEDICINE [address] [place] [phone] Phone: tel: fax: Referral ID Status Reason Start Date Expiration Date Visits Re quested Visits Authorized [id number] Closed 02/13/2025 05/15/2026 1 1 Reason for Visit * Diagnostic Imaging (Routine) - Closed Specialty Diagnoses / Procedures Referred By Contact Referred To Contact Obstetrics and Gynecology Diagnoses Poor growth affecting management of mother in third trimester, single or unspecified fetus Procedures [facility] Diagnostic [place] Aydin Crowe MD [address] [place] [address] Phone: tel: fax: [facility] MATERNAL MEDICINE [address] [facility] [address] [place] [address] Phone: tel: fax: Referral ID Status Reason Start Date Expiration Date Visits Re quested Visits Authorized [id number] Closed 02/13/2025 05/15/2026 1 1 Encounter Details Date Type Department Care Team (Late st Contact Info) Description 02/23/2025 2:03 PM EDT - 02/23/2025 11:59 PM EDT Hospital Encounter [facility] [address] [place] [phone] Aydin Crowe MD [address]00 [facility] [address] [place] [address] Poor growth affecting management of mother in [...] Recorded In the past 12 months has [employer], gas, oil, or water [employer] threatened to shut off services in your [...] and heating? Not hard at all 02/18/2025 [facility] [place] of Occupat ional Health - Occupational Stress [...] things needed for daily living? No 02/18/2025 [place] Depression Scale Answer Date Recorded Retired [place] Depression Score 11 02/23/2024 Retired EPD Scale: [...] GED or equivalent No 02/18/2025 Preferred Language Japanese 02/18/2025 PHQ-2 Answer Date Recorded Patient Health [...] 01/01/2025 03/08/2025 documented as of this encounter Plan of Treatment Upcoming Encounters Date Type Department Care Team (Late st Contact Info) Description 04/17/2025 1:40 PM EDT Visit [facility] OBGYN [address] [place] [address] Aydin Crowe MD [address] [place] [facility] [address] [place] [address] documented as of this encounter Procedures Procedure Name Priority Date/Time Associated Diagnosis Comments [facility] Routine 02/23/2025 2:44 PM EDT Poor growth affecting management of mother in third trimester, single or unspecified fetus documented in this encounter Results * [facility] (02/23/2025 2:44 PM EDT) Anatomical Region Laterality Modality Ultrasound 02/23/2025 2:19 PM EDT Narrative 02/23/2025 2:48 PM EDT PAT NAME: LISA RILEY [facility] REC#: [id number] DA: 2000 PAT GEND: F PAT TYPE: O EXAM JAYSON: [id number] REF PHYS AYDIN CROWE Comparison Studies The [...] EFW (oz) 11 oz EFW by: Hadlock (FSU-YN-TQ-FL) Extended Cav. septi pel. tr 5.9 mm [...] Normal Heart / Thorax 3-vessel view: Normal 6-dlcupd-xgyzubw view: normal Stomach: Appears normal Kidneys: Appears [...] Recommend 37 week delivery. Coding ======= Description: 36146-96 Follow Up Ultrasound Description: 85791-44 BPP without NST Description: 59651-65 Doppler Umbilical Artery Drying Tumbler Operator: Destini Hall RDMS Physician: Medhat De Anda MD, FACOG Electronically signed by: Medhat De Anda MD, FACOG at: 14:48 Procedure Note Medhat De Anda MD - 02/23/2025 PAT NAME: LISA RILEY MED REC#: [id number] DA: 2000 PAT GEND: F PAT TYPE: O EXAM JAYSON: [id number] REF PHYS CASIMIRO AYDIN Comparison Studies The findings of this study are compared to the prior ultrasound studydated 01/25/25. Patient Status Outpatient Indication ======== contractions. CHTN. Chronic proteinuria. Maternal Ghosh ParkinsonWhite. Hx PTD 35 wk - preeclampsia. Morbid obesity BMI 47 Maternal Assessment Bnbrbk087 cm Vatuul488 kg Weight (lb)273 lb BMI47.19 kg/m Method ======= Transabdominal ultrasound examination. View: Limited by patient bodyhabitus ========= Schwarz . Number of fetuses: 1 Dating ====== Cycle:irregular cycle GA by prior [id number] w + 3 d CONG by prior [...] GA35 w + 3 d Assigned CONG:03/27/2025 [id number] d Biometry Standard BPD85.5 mm 34w 3d 27% Hadlock YMH852.7 mm 36w 6d 79% Van HC315.5 mm 35w 3d 18% Hadlock Cerebellum tr45.4 mm 34w 6d 27% Hill AC313.1 mm 35w 2d 53% Hadlock Femur67.2 mm 34w 4d 22% Hadlock Jycnuai35.2 mm 34w 2d 40% Van HC / AC1.01 EFW2,567 g 34w 6d 37% Hadlock EFW (lb)5 lb EFW (oz)11 oz EFW by:Hadlock (DLY-KC-QA-FL) Extended Cav. septi pel. tr5.9 mm CM6.7 mm 26% Nicolaides Head / Face / Neck Cephalic index0.77 14% Nicolaides Extremities / Bony Struc FL / BPD0.79 FL / HC0.21 FL / AC0.21 Other Structures HBO179 bpm General Evaluation Cardiac activity present. FHR 177 bpm. movements present. Presentation cephalic. Placenta Placental site: posterior, fundal. Amniotic fluid Amount of AF: normal. MVP 4.8 cm. ELIZABETH 13.6 cm. Q1 3.2 cm,Q2 4.8 cm, Q3 3.4 cm, Q4 2.3 cm. Anatomy Cranium:Normal Cavum septi pellucidi:Normal Cerebellum:Normal Cisterna magna:Normal 4-chamber view:Appears normal RVOT view:Normal LVOT view:Normal Heart / Thorax 3-vessel view:Normal 9-jxsnry-xrgqtli view:normal Stomach:Appears normal Kidneys:Appears normal Bladder:Appears normal [...] indicated. Recommend 37 week delivery. Coding ======= Description:51353-24 Follow Up Ultrasound Description:20615-06 BPP without NST Description:45376-22 Doppler Umbilical Artery Drying Tumbler Operator: Destini Hall RDMS Physician: Medhat De Anda MD, FACOG Electronically signed by: Medhat De Anda MD, FACOG at: 14:48 us Aydin Crowe MD [facility] [place] ORDERABLES Final Result documented in this encounter Visit Diagnoses Diagnosis Poor growth affecting management of mother in third trimester, single or unspecified fetus documented in this encounter Care Teams Tunnel Form Placing Supervisor Relationship Specialty Start Date End Date Jefe Schwartz MD [address] [place] [facility] [address] [facility] [address] [facility] [place] [address] PCP - General Adolescent Medicine 12/14/23 documented as of this encounter
--- OUTSIDE RECORDS SUMMARY | 2025-02-23 14:15 | XMS_ITS | Encounter Summary ---
Author Organization [facility] Address [address] [place] [address] Care Team Providers Care Signal Worker Helper Name Role Phone Jefe Schwartz MD Primary Care Provider [phone] Reason for Visit * Reason Comments CHTN; proteinuria; contractions; IUGR Encounter Details Date Type Department Care Team (Late st Contact Info) Description 02/23/2025 2:15 PM EDT Office Visit [facility] MATERNAL MEDICINE [address] [place] [phone] Medhat De Anda MD [address] [facility] [address] [place] [address] Chronic hypertension affecting (Primary Dx); Poor growth affecting management of mother in third trimester, single or unspecified fetus Social History Tobacco Use Types Packs/Day Years Used Date Smoking Tobacco: Former Cigarettes Q uit: 01/2024 Smokeless Tobacco: Never Comments:Vape. Alcohol Use Standard Drinks/Week Comments Never 0 (1 standard drink = 0.6 oz pur e alcohol) [facility] Utilities Answer Date Recorded In the past 12 months has [employer], gas, oil, or water company threatened to [...] and heating? Not hard at all 02/18/2025 [facility] [place] of Occupat ional Health - Occupational Stress [...] things needed for daily living? No 02/18/2025 [place] Depression Scale Answer Date Recorded Retired [place] Depression Score 11 02/23/2024 Retired EPD Scale: [...] GED or equivalent No 02/18/2025 Preferred Language [place] Islander 02/18/2025 PHQ-2 Answer Date Recorded Patient [...] Medhat De Anda MD, FACOG Maternal Medicine, [facility] documented in this encounter Plan of Treatment Upcoming Encounters Date Type Department Care Team (Late st Contact Info) Description 04/17/2025 1:40 PM EDT Visit [facility] OBGYN [address] [place] [address] Aydin Crowe MD [address] [place] [phone] documented as of this encounter Visit Diagnoses Diagnosis Chronic hypertension affecting - Primary Poor growth affecting management of mother in third trimester, single or unspecified fetus documented in this encounter Care Teams Signal Worker Helper Relationship Specialty Start Date End Date Jefe Schwartz MD [address] [facility] [address] [place] [address] PCP - General Adolescent Medicine 12/14/23 documented as of this encounter
--- OUTSIDE RECORDS SUMMARY | 2025-02-23 15:15 | XMS_ITS | Encounter Summary ---
Author Organization [facility] Address [address] [place] [address] Care Team Providers Care Receiver Name Role Phone Jefe Schwartz MD Primary Care Provider [phone] Reason for Visit * Reason Comments Routine Visit Encounter Details Date Type Department Care Team (Late st Contact Info) Description 02/23/2025 3:[address] [facility] OBGYN [address] [place], [place] [phone] Kartik Maurice, BUSINESS CONTROL SPECIALIST [address] [facility] [address] [place] [address] GA: 35w3d Social History Tobacco Use Types Packs/Day Years Used Date Smoking Tobacco: Former Cigarettes Q uit: 01/2024 Smokeless Tobacco: Never Comments:Vape. Alcohol Use Standard Drinks/Week Comments Never 0 (1 standard drink = 0.6 oz pur e alcohol) [facility] Utilities Answer Date Recorded In the past 12 months has [employer], gas, oil, or water [employer] threatened to shut off services in your [...] and heating? Not hard at all 02/18/2025 [facility] [place] of Occupat ional Health - Occupational Stress [...] things needed for daily living? No 02/18/2025 [place] Depression Scale Answer Date Recorded Retired [place] Depression Score 11 02/23/2024 Retired EPD Scale: [...] GED or equivalent No 02/18/2025 Preferred Language Tunisian 02/18/2025 PHQ-2 Answer Date Recorded Patient Health [...] at LUQ with radiation to RUQ, daily [place] Guillaume, and daily h eartburn/reflux (Tums helps sometimes). Her care is complicated by (and status): see below. Patient Active Problem List Diagnosis WPW (Nxpsz-Mceohiyys-Zyicb syndrome) SVT (supraventricular tachycardia) Herpes simplex type [...] historical information as entered above. Kartik Maurice, BUSINESS CONTROL SPECIALIST EXAM: Vitals BP: 124/70 Weight: 124 kg (272 lb 12.8 oz) Heart Rate: NST Dilation/Effacement/Station Dilation: 4 Effacement (%): 50 Urine Glucose Read-only: Negative Urine Protein Read-only: Negative Assessment and Plan Problem List Items Addressed This Visit WPW (Lamuu-Hjayqyqbv-Yhjdu syndrome) Overview Dr. Fernando in [place] Echo & 2 week holter monitor in August 2023 wnl per patient. PDC appt 11/04; ultrasound within normal limits and normal growth. EFW 57%. No follow-up ultrasound scheduled. Relevant Medications labetalol (NORMODYNE) 100 MG tablet Herpes simplex type 2 (HSV-2) infection affecting , antepartum Overview Pending culture results from Dr. Cordero in [facility]. 10/11/2023 HSV 2 IgG positive; consistent with recurrent HSV2. Rx valtrex For suppression 500 mg daily. Relevant Medications valACYclovir (VALTREX) 500 MG tablet Obesity in , antepartum Overview BMI 44 Anomaly scan at [facility]. History of pre-eclampsia in prior [...] low on labetalol 100 mg twice daily. [facility] growth ultrasounds at 28 and 32 weeks. [...] elevated. >UA 6.5 11/09/2024 anomaly scan at [facility] Worsening of iron deficiency anemia. [...] 04/17/2025 1:[address] [facility] OBGYN [address] [phone] Aydin Crowe MD [address] [address] documented as of this encounter Procedures Procedure [...] PM EDT) Glucose, UA Negative Negative mg/dL [facility] Urine 02/23/2025 3:54 PM EDT Kartik Maurice BUSINESS CONTROL SPECIALIST POINT OF CARE TEST O RDERABLES Final Result Performing Organization Address City/[facility]/ZIP Co de Phone Number [facility]
[address] [place] [address], [place] [phone] * POC Protein, Urine, Qualitative, Dipstick (02/23/2025 3:54 PM EDT) Protein, POC Negative Negative mg/dL [facility] Lot Number 0 [facility] Expiration Date 0 [facility] Urine 02/23/2025 3:54 PM EDT Kartik Maurice APRN POINT OF CARE TEST O RDERABLES Final Result Performing Organization Address City/[facility]/ZIP Co de Phone Number [facility]
[address] [place] [address], [place] [phone] * Procedure Scanned (02/23/2025) Kartik Maurice APRN PROCEDURE/MINOR SURG ICAL ORDERABLES Final Result documented in this encounter Visit Diagnoses Diagnosis care, third trimester- Primary 35 weeks gestation of WPW (Ujyhl-Qotnlqyrc-Axunc syndrome) Anomalous atrioventricular excitation History of pre-eclampsia [...] antepartum documented in this encounter Care Teams Receiver Relationship Specialty Start Date End Date Jefe Schwartz MD [address] [facility] [address] [place] [phone] PCP - General Adolescent Medicine 12/14/23 documented as of this encounter
--- OUTSIDE RECORDS SUMMARY | 2025-02-27 09:40 | XMS_ITS | Encounter Summary ---
Author Organization [facility] Address [address] [place] [address] Care Team Providers Care Door Framer Name Role Phone Jefe Schwartz MD Primary Care Provider [phone] Reason for Referral * Diagnostic Imaging (Emergency) - Closed Specialty Diagnoses / Procedures Referred By Contact Referred To Contact Obstetrics and Gynecology Diagnoses 36 weeks gestation of Chronic hypertension affecting Procedures US Biophysical Profile;With Non-Stress Testing Aydin Crowe MD [address] [address] Phone: tel: fax: [facility] OBGYN [address] [address] Phone: tel: fax: Referral ID Status Reason Start Date Expiration Date Visits Re quested Visits Authorized [id number] Closed 02/27/2025 05/29/2026 1 1 Reason for Visit * Reason Comments Routine Visit Non-stress Test Encounter Details Date Type Department Care Team (Late st Contact Info) Description 02/27/2025 9:40 AM EDT Routine [facility] OBGYN [address] [facility] [address] [place] [phone] Aydin Crowe MD [address] [place] [id number] [place]: 36w0d Social History Tobacco Use Types Packs/Day Years Used Date Smoking Tobacco: Former Cigarettes Q uit: 01/2024 Smokeless Tobacco: Never Comments:Vape. Alcohol Use Standard Drinks/Week Comments Never 0 (1 standard drink = 0.6 oz pur e alcohol) [facility] Utilities Answer Date Recorded In [...] and heating? Not hard at all 02/18/2025 [facility] of Occupat ional Health - Occupational [...] things needed for daily living? No 02/18/2025 [place] Depression Scale Answer Date Recorded Retired [place] Depression Score 11 02/23/2024 Retired EPD Scale: [...] GED or equivalent No 02/18/2025 Preferred Language Albanian 02/18/2025 PHQ-2 Answer Date Recorded Patient Health [...] below. Patient Active Problem List Diagnosis WPW (Bzstx-Aznxxhcrm-Xrbzo syndrome) SVT (supraventricular tachycardia) Herpes simplex type [...] elevated. >UA 6.5 11/09/2024 anomaly scan at [facility] Worsening of iron deficiency anemia. [...] 04/17/2025 1:40 PM EDT Visit [facility] OBGYN [address] [facility] [address] [place] [phone] Aydin Crowe MD [address]00 [facility] [address] [place] [address] documented as of this encounter Procedures Procedure [...] EDT PAT NAME: SARBJIT RILEY MED REC#: [id number] DA: 2000 PAT GEND: F PAT TYPE: O EXAM GERI: [id number] REF PHYS AYDIN CROWE Indication ======== Non [...] of testing for the condition being monitored. Boat Oar Maker: Annamaria Eli RT R, MS Physician: Aydin Crowe MD Electronically signed by: Aydin Crowe MD at: 11:12 Procedure Note Aydin Crowe MD - 02/27/2025 PAT NAME: SARBJIT RILEY MED REC#: [id number] DA: 2000 PAT GEND: F PAT TYPE: O EXAM GERI: [id number] REF PHYS AYDIN CROWE Indication ======== Non reactive NST; Morbid obesity BMI 45 Comparison Studies The findings of this study are compared to the prior ultrasound studydated 02/23/25 Method ======= Voluson E6, Transabdominal ultrasound examination. View: Sufficient ========= Schwarz . Number of fetuses: 1 Dating ====== Cycle:irregular cycle Method of dating:based on stated CONG GA by prior [id number] w + 0 d CONG by prior assessment:03/27/2025 Previous Ultrasound on:07/25/2024 Type of prior assessment:GS mean Previous dating:based on stated CONG, selected on 02/03/2025 Agreed CONG of previous datin03/27/2025 Assigned:based on stated CONG, selected on 02/27/2025 Assigned GA36 w + 0 d Assigned CONG:03/27/2025 d General Evaluation Cardiac activity present. FHR [...] schedule of testing for the condition beingmonitored. Boat Oar Maker: Annamaria Eli RT R, [facility] Physician: Aydin Crowe MD Electronically signed by: Aydin Crowe MD at: 11:12 Aydin Crowe MD [facility] US ORDERABLES Final Result * POC Glucose, Urine, Qualitative, Dipstick (02/27/2025 10:27 AM EDT) Glucose, UA Negative Negative mg/dL [facility] Urine 02/27/2025 10:2 7 AM EDT Aydin Crowe MD POINT OF CARE TEST ORDERABLES F inal Result Performing Organization Address [facility]/ZIP Co de Phone Number [facility]
[address] [place] [address], [place] [phone] * POC Protein, Urine, Qualitative, Dipstick (02/27/2025 10:27 AM EDT) Protein, POC Negative Negative mg/dL [facility] Lot Number 0 [facility] Expiration Date 0 [facility] Urine 02/27/2025 10:2 7 AM EDT Aydin Crowe MD POINT OF CARE TEST ORDERABLES F inal Result Performing Organization Address City/[facility]/ZIP Co de Phone Number [facility]
[address] [place] [address], [place] [phone] * Procedure Scanned (02/27/2025) Aydin Crowe MD PROCEDURE/MINOR SURGICAL ORDERA BLES Final Result documented in this encounter Visit Diagnoses Diagnosis care, third trimester- Primary 36 weeks gestation of Chronic hypertension affecting 36 weeks gestation of Chronic hypertension affecting documented in this encounter Care Teams Door Framer Relationship Specialty Start Date End Date Jefe Schwartz MD [address] [place] [address] [place] [address] PCP - General Adolescent Medicine 12/14/23 documented as of this encounter
--- OUTSIDE RECORDS SUMMARY | 2025-02-27 10:50 | XMS_ITS | Encounter Summary ---
Author Organization [facility] Address [address] [place] [address] Care Team Providers Care Photo Finisher Name Role Phone Jefe Schwartz MD Primary Care Provider [phone] Reason for Visit * Diagnostic Imaging (Emergency) - Closed Specialty Diagnoses / Procedures Referred By Contact Referred To Contact Obstetrics and Gynecology Diagnoses 36 weeks gestation of Chronic hypertension affecting Procedures US Biophysical Profile;With Non-Stress Testing Aydin Crowe MD [address] [address] Phone: tel: fax: [facility] OBGYN [address] [address] Phone: tel: fax: Referral ID Status Reason Start Date Expiration Date Visits Re quested Visits Authorized [id number] Closed 02/27/2025 05/29/2026 1 1 Encounter Details Date Type Department Care Team (Latest Contact Info) Description 02/27/2025 10:50 AM EDT Ancillary Procedure [facility] OBGYN [address] [address] 36 weeks gestation of ; Chronic hypertension affecting Social History Tobacco Use Types Packs/Day Years Used Date Smoking Tobacco: Former Cigarettes Q uit: 01/2024 Smokeless Tobacco: Never Comments:Vape. Alcohol Use Standard Drinks/Week Comments Never 0 (1 standard drink = 0.6 oz pur e alcohol) [facility] Utilities Answer Date Recorded In [...] and heating? Not hard at all 02/18/2025 [facility] of Occupat ional Health - Occupational [...] things needed for daily living? No 02/18/2025 [place] Depression Scale Answer Date Recorded Retired [place] Depression Score 11 02/23/2024 Retired EPD Scale: [...] GED or equivalent No 02/18/2025 Preferred Language Finnish 02/18/2025 PHQ-2 Answer Date Recorded Patient Health [...] Info) Description 04/17/2025 1:40 PM EDT Visit [facility] OBGYN [address] [place] [address] Aydin Crowe MD [address] [place] [address] documented as of this encounter Procedures Procedure [...] EDT PAT NAME: SARBJIT RILEY MED REC#: [id number] DA: 2000 PAT GEND: F PAT TYPE: O EXAM GERI: [id number] REF PHYS AYDIN CROWE Indication ======== Non [...] of testing for the condition being monitored. Big Data Analytics Lead: RT Kyle Pringle, [facility] Physician: Aydin Crowe MD Electronically signed by: Aydin Crowe MD at: 11:12 Procedure Note Aydin Crowe MD - 02/27/2025 PAT NAME: SARBJIT RILEY [facility] REC#: [id number] DA: 2000 PAT GEND: F PAT TYPE: O EXAM GERI: [id number] REF PHYS AYDIN CROWE Indication ======== Non [...] GA36 w + 0 d Assigned CONG:03/27/2025 [email or web address] d General Evaluation Cardiac activity present. FHR [...] schedule of testing for the condition beingmonitored. Big Data Analytics Lead: RT Kyle Pringle, [facility] Physician: Aydin Crowe MD Electronically signed by: Aydin Crowe MD at: 11:12 Aydin Crowe MD [facility] US ORDERABLES Final Result documented in this encounter Visit Diagnoses Diagnosis 36 weeks gestation of Chronic hypertension affecting documented in this encounter Care Teams Photo Finisher Relationship Specialty Start Date End Date Jefe Schwartz MD [address] [place] [facility] [address] [place] [address] PCP - General Adolescent Medicine 12/14/23 documented as of this encounter
--- OUTSIDE RECORDS SUMMARY | 2025-03-02 09:30 | XMS_ITS | Encounter Summary ---
Author Organization [facility] Address [address] [place] [address] Care Team Providers Care Script Reader Name Role Phone Jefe Schwartz MD Primary Care Provider [phone] Reason for Visit * Reason Comments Non-stress Test Routine Visit Encounter Details Date Type Department Care Team (Late st Contact Info) Description 03/02/2025 9:30 AM EDT Routine [facility] OBGYN [address] [place] [address] Kartik Maurice, MATT [address] [facility] [address] [place] [address] GA: 36w3d Social History Tobacco Use Types Packs/Day Years Used Date Smoking Tobacco: Some Days Cigarettes Last attempted to quit: 01/2024 Smokeless Tobacco: Never Tobacco Cessation:Ready to Q uit: Not Asked; Counseling Given: Not Answered Comments:Vape. Alcohol Use Standard Drinks/Week Comments Never 0 (1 standard drink = 0.6 oz pur e alcohol) [facility] Utilities Answer Date Recorded In the past 12 months has [employer], gas, oil, or water company threatened to [...] and heating? Not hard at all 02/18/2025 [facility] [place] of Occupat ional Health - Occupational Stress [...] things needed for daily living? No 02/18/2025 [place] Depression Scale Answer Date Recorded Retired [place] Depression Score 11 02/23/2024 Retired EPD Scale: [...] GED or equivalent No 02/18/2025 Preferred Language Mosotho 02/18/2025 PHQ-2 Answer Date Recorded Patient Health [...] Sign Reading Time Taken Comments Blood Pressure 128/70 03/02/2025 9:59 AM EDT Pulse - - Temperature - - Respiratory Rate - - Oxygen Saturation - - Inhaled Oxygen Concentration - - Weight 124 kg (274 lb) 03/02/2025 9:59 AM EDT Height - - Body Mass Index 45.6 02/18/2025 10:39 PM EDT documented in this encounter Progress Notes * Kartik Maurice APRN - 03/02/2025 9:30 AM EDT Images from the original note were not included. OB FOLLOW UP CC- Here for care of Lisa Trevino is a 24 y.o. 36w3d patient being seen today for her obstetrical follow up visit. Patient reports more than 5 contractions per hour , her BP's at home have been 130's/80's, and pink spotting at BR trips. Her care is complicated by (and status) : see below. Patient Active Problem List Diagnosis WPW (Kkehz-Mlbjlqadm-Rawfv syndrome) SVT (supraventricular tachycardia) Herpes simplex type [...] Status: was already done and is negative. Allergies Allergen Reactions Fentanyl Mental Status Change Pt gets mean broke 4 restraints and aggressive towards staff Flu Status: out of season RSV status: out of season Her Delivery Plan is: induction at 37 wks-scheduled US today: no Non Stress Test: Yes minutes >20 non-stress test: NST: Reactive indication: Hypertension category: Category I ROS - Patient Denies: Loss of Fluid, Vision Changes, Headaches, Nausea , Vomiting , Epigastric pain, and skin itching Movement : normal Other than what is documented in the HPI, all other systems reviewed and are negative. The additional following portions of the patient's history were reviewed and updated as appropriate: allergies, current medications, past medical history, past social history, past surgical history, and problem list. I have reviewed and agree with the HPI, ROS, and historical information as entered above. Kartik Maurice, NET MAKING SUPERVISOR EXAM: Vitals BP: 128/70 Weight: 124 kg (274 lb) Heart Rate: NST Dilation/Effacement/Station Dilation: 4 Effacement (%): 70 Urine Glucose Read-only: Negative Urine Protein Read-only: Negative Assessment and Plan Problem List Items Addressed This Visit WPW (Kdshq-Nbpglqxbj-Nmzyl syndrome) Overview Dr. Fernando in [place] Echo & 2 week holter monitor in August 2023 wnl per patient. PDC appt 11/04; ultrasound within normal limits and normal growth. EFW 57%. No follow-up ultrasound scheduled. Relevant Medications labetalol (NORMODYNE) 100 MG tablet Herpes simplex type 2 (HSV-2) infection affecting , antepartum Overview Pending culture results from Dr. Cordero in [facility]. 10/11/2023 HSV 2 IgG positive; consistent with recurrent HSV2. Rx valtrex For suppression 500 mg daily. Relevant Medications valACYclovir (VALTREX) 500 MG tablet Obesity in , antepartum Overview BMI 44 Anomaly scan at [facility]. History of pre-eclampsia in prior , currently [...] Relevant Medications labetalol (NORMODYNE) 100 MG tablet Iron deficiency anemia secondary to inadequate dietary [...] trimester Other Visit Diagnoses care, antepartum, unspecified - Primary Relevant Orders POC Urinalysis Dipstick (Completed) at 36w3d status reassuring. Reviewed upcoming IOL with patient. Instructions given. Signs of labor reviewed Kick counts reviewed Return in about 6 weeks (around 04/13/2025). Kartik Maurice APRN 03/02/2025 documented in this encounter Plan of Treatment Upcoming Encounters Date Type Department Care Team (Late st Contact Info) Description 04/17/2025 1:40 PM EDT Visit [facility] O[facility]YN [address] [facility] [address] [place] [phone] Aydin Crowe MD [address] [place] [address] documented as of this encounter Procedures Procedure Name Priority Date/Time Associated Diagnosis Comments POCT URINALYSIS DIPSTICK, MANUAL Routine 03/02/2025 9:58 AM EDT care, antepartum, unspecified SCANNED - PROCEDURE 03/02/2025 documented in this encounter Results * POC Urinalysis Dipstick (03/02/2025 9:58 AM EDT) Glucose, UA Negative Negative mg/dL [facility] Protein, POC Negative Negative mg/dL [facility] Urine 03/02/2025 9:58 AM EDT Kartik Maurice APRN POINT OF CARE TEST O RDERABLES Final Result [facility]
[address] [place] [address], [place] [phone] * Procedure Scanned (03/02/2025) Kartik Maurice APRN PROCEDURE/MINOR SURG ICAL ORDERABLES Final Result documented in this encounter Visit Diagnoses Diagnosis care, antepartum, unspecified - Primary WPW (Pdhgi-Gjqtpibtw-Ykkgs syndrome) Anomalous atrioventricular excitation Obesity in , antepartum Obesity complicating , childbirth, or the puerperium, antepartum condition or complication Chronic hypertension affecting Poor growth affecting management of mother in third trimester, single or unspecified fetus Herpes simplex type 2 (HSV-2) infection affecting , antepartum History of pre-eclampsia in prior , currently with other poor obstetric history Iron deficiency anemia secondary to inadequate dietary iron intake documented in this encounter Care Teams Script Reader Relationship Specialty Start Date End Date Jefe Schwartz MD [address] [facility] [address] [place] [address] PCP - General Adolescent Medicine 12/14/23 documented as of this encounter
--- OUTSIDE RECORDS SUMMARY | 2025-03-06 | XMS_ITS | Encounter Summary ---
Author Organization [facility] Address [address] [place] [address] Care Team Providers Care Veterinary Hospital Attendant Name Role Phone Jefe Schwartz MD Primary Care Provider [phone] Reason for Visit * Auth/Cert (Routine) Specialty Diagnoses / Procedures Referred By Contac t Referred To Contact Diagnoses Chronic hypertension in obstetric context, third trimester Referral ID Status Reason Start Date Expiration Date Visits Re quested Visits Authorized [id number] 1 1 Encounter Details Date Type Department Care Team (Latest Contact Info) Description 03/06/2025 - 03/06/2025 11:59 PM EDT Hospital Encounter [facility] LABOR AND DELIVERY PROCEDURES [address] [place] [address] Discharge Disposition: Home or Self Care Social History Tobacco Use Types Packs/Day Years Used Date Smoking Tobacco: Former Cigarettes Q uit: 01/2024 Passive Smoke Exposure: Past Smokeless Tobacco: Never Comments:Vape. Alcohol Use Standard Drinks/Week Comments Never 0 (1 standard drink = 0.6 oz pur e alcohol) [facility] Utilities Answer Date Recorded In the past 12 months has [employer], gas, oil, or water [employer] threatened to shut off services in your home? No 03/06/2025 AUDIT-C Answer Date Recorded Q1: How often do you have a drink containing alcohol? Never 03/06/2025 Q2: How many drinks containi ng alcohol do you have on a typical day when you are drinking? Patient does not drink Q3: How often do you have si x or more drinks on one occasion? Never 03/06/2025 Overall Financial Resource Strain (CARDIA) Answe r Date Recorded How hard is it for you to pa y for the very basics like food, housing, medical care, and heating? Not hard at all 03/06/2025 [facility] [place] of Occupat ional [facility] - Occupational Stress Questionnaire Answer Date Recorded Do you feel stress - tense, restless, nervous, or anxious, or unable to sleep at night because your mind is troubled all the time - these days? Not at all 03/06/2025 Exercise Vital Sign Answer Date Recorde d On average, how many days pe r week do you engage in moderate to strenuous exercise (like a brisk walk)? 0 days 03/06/2025 On average, how many minutes do you engage in exercise at this level? 0 min 03/06/2025 Hunger Vital Sign Answer Date Recorded Within the past 12 months, y ou worried that your food would run out before you got the money to buy more. Never true 03/06/20 25 Within the past 12 months, t he food you bought just didn't last and you didn't have money to get more. Never true 03/06/2025 PRAPARE - Transportation Answer Date Re corded In the past 12 months, has l ack of transportation kept you from medical appointments or from getting medications? No 02/08 In the past 12 months, has l ack of transportation kept you from meetings, work, or from getting things needed for daily living? No 03/06/2025 [place] Depression Scale Answer Date Recorded [place] Depression Scale Total 8 03/06/2025 The thought of harming myself has occurred to me . Never 03/06/2025 Abuse Screen Answer Date Recorded Feels Unsafe at Home or Work/School no 03/06/2025 Feels Threatened by Someone no 02/08 Does Anyone Try to Keep You From Having Contact with Others or Doing Things Outside Your Home? no 03/06/2025 Physical Signs of Abuse Present no 03/06/2025 Housing Stability Answer Date Recorded Current Living Arrangements home 02/08 Potentially Unsafe Housing Conditions none 03/06/2025 Family and Community Support Answer Jayson e Recorded If for any reason you need h elp with day-to-day activities such as bathing, preparing meals, shopping, managing finances, etc., do you get the help you need? I don't need any help 03/06/2025 How often do you feel lonely or isolated from those around you? Never 03/06/2025 Employment Answer Date Recorded Do you want help finding or keeping work or a job? I do not need or want help 03/06/2025 Disabilities Answer Date Recorded Difficulty Concentrating, Remembering or Making Decisions no 03/06/2025 Difficulty Managing Errands Independently no 03/06/2025 Education Answer Date Recorded Do you want help with school or training? For example, starting or completing job training or getting a high school diploma, GED or equivalent No 03/06/2025 Preferred Language Barbadian 03/06/2025 PHQ-2 Answer Date Recorded Patient Health Questionnaire-2 Score 0 03/06/2025 Education Answer Date Recorded What is the highest level of school you have completed or the highest degree you have received? Associate degree: occupational, technical, or vocational program 12/13/2024 Comments No Sex and Gender Information Value Date Recorded Sex Assigned at Female 02/09/2025 9:23 PM EDT Legal Sex Female 11:40 AM EDT Gender Identity Not on file Sexual Orientation Choose not to disclose 2024 9:23 PM EDT documented as of this encounter Functional Status * Audit-C Score Answer Date of Assessment Author 0 03/06/2025 12:58 AM Eligio Chan RN * Question Answer Date of Assessment Author Q1: How often do you have a drink containing alcohol? Never 03/06/2025 12:58 AM Chelsy Chan R N Q2: How many drinks containing alcohol do you have on a typical day when you are drinking? Patient does not drink 03/06/2025 12:58 AM Chelsy Chan RN Q3: How often do you have six or more drinks on one occasion? Never 03/06/2025 12:58 AM Chelsy Chan R N * Over the past 2 weeks, how often have you been bothered by any of the following problems? Question Answer Date of Assessment Author Patient Health Questionnaire-2 Score 0 02/08 12:58 AM Chelsy Chan RN * Question Answer Date of Assessment Author 1. Wish to be (Past 1 Month) No 025 12:42 AM Chelsy Chan RN 2. Non-Specific Active Suici anna Thoughts (Past 1 Month) No 03/06/2025 12:42 AM Flori Chan RN * Calculated C-SSRS Risk Score (Lifetime/Recent) Answer Date of Assessment Author No Risk Indicated 03/06/2025 12:42 AM Chelsy Chan RN * [place] Suicide Severity Rating Scale (Screener/Recent Self-Report) Question Answer Date of Assessment Author 6. Suicidal Behavior (Lifetime) No 12:42 AM Chelsy Chan RN * Question Answer Date of Assessment Author Little interest or pleasure in doing things Not at all 03/06/2025 12:58 AM Chelsy Chan R N Feeling down, depressed, or hopeless Not at all 03/06/2025 12:58 AM Chelsy Chan R N documented as of this encounter Medications at [...] 6 12/27/2024 10:36 AM EDT 12/27/2024 03/08/2025 Calcium Carbonate Antacid (TUMS PO) Take by mouth. 03/08/2025 labetalol (NORMODYNE) 100 MG tablet Take 1 tablet by mouth 2 (Two) Times a Day. 60 tablet 8 01/01/2025 03/08/2025 Ondansetron (ZOFRAN ODT PO) Take by mouth. 03/08/2025 documented as of this encounter Plan of Treatment Upcoming Encounters Date Type Department Care Team (Late st Contact Info) Description 04/17/2025 1:40 PM EDT Visit [facility] OBGYN [address] [place] [address] Aydin Crowe MD [address] [facility] [address] [place] [id number] documented as of this encounter Visit Diagnoses Not on filedocumented in this encounter Care Teams Veterinary Hospital Attendant Relationship Specialty Start Date End Date Jefe Schwartz MD [facility] [address] [place] [address] PCP - General Adolescent Medicine 12/14/23 documented as of this encounter
--- OUTSIDE RECORDS SUMMARY | 2025-03-06 00:04 | XMS_ITS | Encounter Summary ---
Author Organization [facility] Address [address] [place] [address] Care Team Providers Care [employer] Worker Name Role Phone Jefe Schwartz MD Primary Care Provider [phone] Reason for Visit * Reason Comments Scheduled Induction * Auth/Cert (Routine) Specialty Diagnoses / Procedures Referred By Contac t Referred To Contact Diagnoses Chronic hypertension in obstetric context, third trimester Referral ID Status Reason Start Date Expiration Date Visits Re quested Visits Authorized [id number] 1 1 Encounter Details Date Type Department Care Team (Late st Contact Info) Description 03/06/2025 12:04 AM EDT - 03/08/2025 10:40 AM EDT Hospital Encounter [facility] [address] [place] [address] Aydin Crowe MD [address] [facility] [address] [place] [address] Discharge Disposition: Home or Self Care Social History Tobacco Use Types Packs/Day Years Used Date Smoking Tobacco: Former Cigarettes Q uit: 01/2024 Passive Smoke Exposure: Past Smokeless Tobacco: Never Tobacco Cessation:Counseling Given: No Comments:Vape. Alcohol Use Standard Drinks/Week Comments Never 0 (1 standard drink = 0.6 oz pur e alcohol) [facility] Utilities Answer Date Recorded In the past 12 months has [employer] electric, gas, oil, or water company threatened [...] and heating? Not hard at all 03/06/2025 [facility] - Occupational Stress Questionnaire Answer Date Recorded [...] things needed for daily living? No 03/06/2025 [place] Depression Scale Answer Date Recorded [place] Depression Scale Total 8 03/06/2025 The thought [...] GED or equivalent No 03/06/2025 Preferred Language Cuban 03/06/2025 PHQ-2 Answer Date Recorded Patient Health [...] Sign Reading Time Taken Comments Blood Pressure 112/58 03/08/2025 7:28 AM EDT Pulse 96 03/08/2025 7:28 AM EDT Temperature 36.5 C (97.7 F) 03/08/2025 7:28 AM EDT Respiratory Rate 18 03/08/2025 7:28 AM EDT Oxygen Saturation 99% 03/08/2025 7:28 AM EDT Inhaled Oxygen Concentration - - Weight 124 kg (273 lb) 03/06/2025 12:41 AM EDT Height 165.1 cm (5' 5 ) 03/06/2025 12:41 AM EDT Body Mass Index 45.43 03/06/2025 12:41 AM EDT documented in this encounter Functional Status * Audit-C Score [...] Patient does not drink 03/06/2025 12:58 AM Cehlsy Chan RN Q3: How often do you [...] 03/06/2025 12:42 AM Chelsy Chan RN * [place] Suicide Severity Rating Scale (Screener/Recent Self-Report) Question Answer Date of Assessment Author 6. Suicidal Behavior (Lifetime) No 12:42 AM Chelsy Chan RN * Question Answer Date of Assessment Author Little interest or pleasure in doing things Not at all 03/06/2025 12:58 AM Chelsy Chan R N Feeling down, depressed, or hopeless Not at all 03/06/2025 12:58 AM Cehlsy Chan R N documented as of this encounter Discharge Summaries * Kartik Maurice APRN - 03/08/2025 9:39 AM EDT Discharge Summary Date of Admission: 03/06/2025 Date of Discharge: 03/08/2025 Patient: Lisa Trevino MR#:[id number] Delivery Provider: Aydin Crowe Attending Provider: Aydin Crowe MD Presenting Problem/History of Present Illness Chronic hypertension in obstetric context, third trimester [O10.913] Chronic hypertension affecting Obesity in , antepartum History of pre-eclampsia in prior , currently Proteinuria affecting , antepartum labor in third trimester with term delivery Poor growth affecting management of mother in third trimester Discharge Diagnosis: Vaginal delivery at 37w0d Procedures: Vaginal, Spontaneous 03/06/2025 5:25 AM Discharge Date: 03/08/2025; Hospital Course Patient is a 24 y.o. female at 37w0d status post vaginal delivery without complication. the patient did well. She remained afebrile, with vital signs stable. She was ready for discharge on day 2. PP anemia: pt to continue accrufer upon discharge Infant: male fetus 2930 g (6 lb 7.4 oz) with scores of 7 , 9 at five minutes. Condition on Discharge: Stable Vital Signs Temp: [97.7 ??F (36.5 ??C)-97.8 ??F (36.6 ??C)] 97.7 ??F (36.5 ??C) Heart Rate: [89-96] 96 Resp: [18-20] 18 BP: (112-126)/(58-68) 112/58 Lab Results Component Value Date WBC 11.01 (H) 03/08/2025 HGB 7.2 (L) 03/08/2025 HCT 24.1 (L) 03/08/2025 MCV 85.5 03/08/2025 PLT 213 03/08/2025 Discharge Disposition Home or Self Care Discharge Medications Discharge Medications Continue These Medications Instructions Start Date ACCRUFeR 30 MG capsule Generic drug: Ferric Maltol 30 mg, Oral, 2 Times Daily, Take on an empty stomach. vitamins 29-1 MG tablet tablet 1 tablet, Oral, Daily Stop These Medications aspirin 81 MG chewable tablet labetalol 100 MG tablet Commonly known as: NORMODYNE TUMS PO valACYclovir 500 MG tablet Commonly known as: VALTREX ZOFRAN ODT PO Discharge Diet: Activity at Discharge: Activity Instructions Activity as Tolerated Gradually Increase Activity Until at Pre-Hospitalization Level Pelvic Rest Sexual Activity Restrictions Type of Restriction: Sex Explain Sexual Activity Restrictions: Nothing in the vagina for 6 weeks Work Restrictions Type of Restriction: Work May Return to Work: After Next Appointment With / Without Restrictions: Without Restrictions Follow-up Appointments Future Appointments Date Time Provider Department Center 04/17/2025 11:00 AM Aydin Crowe MD [facility] [id number] Additional Instructions for the Follow-ups that You Need to Schedule Call MD With Problems / Concerns As directed Instructions: Call for temp >/= 100.4, severe pain, severe bleeding, headache that does not improve with rest, medication, blurred vision, or depression. Monitor incision for signs of infection including, foul odor, discharge or separation of the wound. Call for blood clots larger than a golf ball or saturating a pad in less than an hour. Order Comments: Instructions: Call for temp >/= 100.4, severe pain, severe bleeding, headache that does not improve with rest, medication, blurred vision, or depression. Monitor incision for signs of infection including, foul odor, discharge or separation of the wound. Call for blood clots larger than a golf ball or saturating a pad in less than an hour. Discharge Follow-up with Specified Provider: Dr. Crowe; 6 Weeks As directed To: Dr. Crowe Follow Up: 6 Weeks Kartik Maurice APRN 03/08/25 09:40 EDT Csd Cosigned by Aydin Crowe MD at 03/09/2025 11:51 AM EDT Associated attestation - Aydin Crowe MD - 03/09/2025 11:51 AM EDT I have reviewed this documentation and agree. documented in this encounter Medications at Time of Discharge vitamins (PRENATABS RX) 29-1 MG tablet tablet Take 1 tablet by mouth Daily. 30 tablet 11 07/25/2024 07/25/2025 Ferric Maltol (ACCRUFeR) 30 MG capsule Take 1 capsule by mouth 2 (Two) Times a Day. Take on an empty stomach. 60 capsule 9 01/18/2025 documented as of this encounter Progress Notes * Kelly Patricia, [employer] AND [employer] MAN - 03/07/2025 10:20 AM EDT Images from the original note were not included. Progress Note Patient name: Lisa Trevino Date of : 2000 Referring Provider: Aydin Crowe MD Admission Date: 03/06/2025 Date of Service: 03/07/2025 ID: 24 y.o. Diagnosis: S/p vaginal delivery Chronic hypertension affecting Obesity in , antepartum History of pre-eclampsia in prior , currently Proteinuria affecting , antepartum labor in third trimester with term delivery Poor growth affecting management of mother in third trimester Subjective: No complaints. Moderate lochia. Ambulating, voiding, tolerating diet. Pain well controlled. The patient is currently . This baby is a male. Desires circ. Objective: Vital signs: Vital Signs Range for the last 24 hours Temperature: Temp: [97.9 ??F (36.6 ??C)-98.9 ??F (37.2 ??C)] 98.9 ??F (37.2 ??C) Temp Source: Temp src: Oral BP: BP: (125-132)/(75-84) 132/84 Pulse: Heart Rate: [73-99] 99 Respirations: Resp: [16-18] 16 Weight: 124 kg (273 lb) General: Alert & oriented x4, in no apparent distress Abdomen: soft, nontender Uterus: firm, nontender Extremities: nontender; no edema Labs: Lab Results Component Value Date WBC 9.80 03/07/2025 HGB 7.6 (L) 03/07/2025 HCT 24.7 (L) 03/07/2025 MCV 85.2 03/07/2025 PLT 210 03/07/2025 Results from last 7 days Lab Units 03/06/25 0103 ABO TYPING A RH TYPING Positive External Results Outside Results - Transcribed From Office Records - See Scanned Records For Details Test Value Date Time ABO A 03/06/25 010 Rh Positive 03/06/25 0103 Antibody Screen Negative 03/06/25 0103 Negative 02/18/25 2347 Negative 01/23/25 2249 Negative 01/11/25 1055 Negative 12/31/24 0804 Negative 12/25/242002 Negative 08/17/24 1531 Varicella IgG Rubella 2.80 index 08/17/24 1531 Hgb 7.6 g/dL 03/07/25 0507 9.0 g/dL 03/06/25 0114 9.0 g/dL 02/18/25 2347 9.6 g/dL 02/09/25 1239 9.3 g/dL 02/06/25 1430 9.4 g/dL 01/23/25 2249 9.2 g/dL 01/11/25 1055 9.4 g/dL 12/31/24 0804 9.8 g/dL 12/26/24 2224 10.6 g/dL 12/25/242002 9.9 g/dL 12/21/24 1445 9.9 g/dL 12/21/24 ^ 11.3 g/dL 10/06/24 1525 11.1 g/dL 10/05/24 1832 11.5 g/dL 08/17/24 1531 11.1 g/dL 07/25/24 1426 Hct 24.7 % 03/07/25 0507 29.6 % 03/06/25 0114 28.3 % 02/18/25 2347 30.8 % 02/09/25 [...] 08/17/24 1531 Syphils cascade: TP-Ab (FTA) Non-Reactive 03/06/25 0111 Non-Reactive 01/23/25 2249 Non-Reactive 12/25/242002 TP-Ab Non-Reactive 03/06/25 0111 Non-Reactive 01/23/25 2249 Non-Reactive 12/25/242002 TP-Ab (EIA) TPPA HBsAg ^ [...] Screen Tricyclic Antidepressants Screen Legend ^: Historical Assessment/Plan: PPD#1 s/p vaginal delivery. Doing well. Chronic anemia exacerbated by delivery. Asymptomatic. Predelivery H/H 05/08.6, Postdelivery 7.6/.7. S/P IV iron infusion yesterday. Plan: Continue routine care. Advance. Anemia- Begin PO iron with constipation precautions. Notify provider if becomes symptomatic. AM CBC to f/u anemia. Kelly Patricia APRN 03/07/25 * Aydin Crowe MD - 03/06/2025 5:48 AM EDT [facility] Vaginal Delivery Note Patient Name: Lisa Trevino : 2000 Date of Delivery: 03/06/2025 Diagnosis Pre & Post-Delivery: Intrauterine at 37w0d Labor status: Induced Onset of Labor Chronic hypertension affecting Obesity in , antepartum History of pre-eclampsia in prior , currently Proteinuria affecting , antepartum labor in third trimester with term delivery Poor growth affecting management of mother in third trimester Problem List Transfer to Review the Delivery Report for details. Delivery Delivery: Vaginal, Spontaneous Date of : 03/06/2025 Time of : Gestational Age 5:25 AM 37w0d Anesthesia: Epidural;Local Delivering clinician: Aydin Crowe Forceps? No Vacuum? No Shoulder dystocia present: No Delivery narrative: Patient is a 24 y.o.-year-old who presented at 37 weeks and 0 days for induction of labor. Her labor was induced with pitocin. Membranes were ruptured artificially for clear. The patient received an epidural at her request. The patient progressed to fully dilated and pushed over roughly 1 minutes. Over an intact perineum, at 5:25 AM, the patient delivered a viable maleinfant from the Right Occiput Anterior presentation. The anterior shoulder, which was the Left,delivered without difficulty, followed by the remainder of the infant. The infant was placed on the abdomen with nursing supervision. The umbilical cord was clamped and cut after 60 seconds. The placenta delivered shortly thereafter and was found to be intact. The perineum and vagina were closely inspected and it was noted that the patient had a 2nd degree laceration(s), which were repaired in the usual running locked fashion using 2-0 Vicryl Rapide.. Because the patient just had her epidural, 10 ccof lidocaine without epinephrine was instilled into the perineum prior to repair. At the end of therepair, hemostasis was achieved. All needles and instruments were removed from the vagina and the patient was returned to the supine position. Infant Findings: male infant observations: Weight: 2930 g (6 lb 7.4 oz) Length: 18.75 in Observations/Comments: Apgars: @ 1 minute / @ 5 minutes Infant Name: Placenta & Cord Placenta delivered Spontaneous at 03/06/2025 5:30 AM Cord: 3 vessels present. Nuchal Cord? no Cord blood obtained: Yes Cord gases obtained: No Cord gas results: Venous: No results found for: PHCVEN , BECVEN Arterial: No results found for: PHCART , BECART Repair Episiotomy: Not recorded No Lacerations: Yes Laceration Information Laceration Repaired? Perineal: 2nd Yes Periurethral: Labial: Sulcus: Vaginal: Cervical: Suture used for repair: 2-0 Vicryl Laceration Length for 3rd or 4th degree lacerations: cm Estimated Blood Loss: 400 mL Quantitative Blood Loss: Complications none Disposition Mother to Mother Baby/ in stable condition currently. Baby to NBN in stable condition currently. Aydin Crowe MD 03/06/25 05:49 EDT * Ryne Ramos MD - 03/06/2025 4:10 AM EDT Subjective Patient without complaints. Her primary broadcast program director has requested artificial rupture of membranes. Objective BP 115/56 (BP Location: Left arm, Patient Position: Lying) Pulse 87 Temp 98.3 ??F (36.8 ??C) (Oral) Resp 16 Ht 165.1 cm (65 ) Wt 124 kg (273 lb) LMP 05/24/2024 No BMI 45.43 kg/m?? General: No acute distress Lungs: No increased work of breathing Cervix: 6/80/-2 heart rate tracins, moderate variability, positive accelerations [place]: Contractions every 3 minutes Assessment and plan AROM-clear fluid Pitocin currently at 6 milliunits with plan to titrate up; RN having difficulty with adequate fetalheart rate tracing - IUPC and FSE placed. Continue current plan per primary broadcast program director. Ryne Ramos MD 03/06/2025 04:11 EDT documented in this encounter H&P Notes * Aydin Crowe MD - 03/06/2025 12:01 AM EDT Images from the original note were not included. [place] Obstetric History and Physical Chief Complaint Patient presents with Scheduled Induction Subjective Patient is a 24 y.o. female currently at 37w0d, who presents with IOL 2/2 CHTN and previousIUGR (now improved), per [facility] recommendation. Her care is complicated by a history of PTL s/p 4 doses of betamethasone throughout the . Her previous obstetric/gynecological history is noted for is non-contributory. The following portions of the patients history were reviewed and updated as appropriate: current medications, allergies, past medical history, past surgical history, and problem list . Information: Results Initial Labs Test Value Reference Range Date Time Hemoglobin ^ 11.3 g/dL 11.2 - 15.7 10/06/24 1525 11.1 g/dL 12.0 - 15.9 10/05/24 1832 11.5 g/dL 11.1 - 15.9 08/17/24 1531 11.1 g/dL 12.0 - 15.9 07/25/24 1426 Hematocrit ^ 35.2 % 34.0 - 45.0 10/06/24 1525 35.4 % 34.0 - 46.6 10/05/24 1832 35.5 % 34.0 - 46.6 08/17/24 1531 35.5 % 34.0 - 46.6 07/25/24 1426 Platelets ^ 256 10*3/uL 155 - 369 10/06/24 1525 241 10*3/mm3 140 - 450 10/05/24 1832 317 x10E3/uL 150 - 450 08/17/24 1531 354 10*3/mm3 140 - 450 07/25/24 1426 Rubella IgG 2.80 index Immune >0.99 08/17/24 1531 Hepatitis B SAg ^ Negative Negative 10/06/24 1525 Negative Negative 08/17/24 1531 Hepatitis C Ab Non Reactive Non Reactive 08/17/24 1531 RPR Non Reactive Non Reactive 01/11/25 1055 Non Reactive Non Reactive 08/17/24 1531 T. Pallidum Ab Non-Reactive Non-Reactive 01/23/25 2249 Non-Reactive Non-Reactive 12/25/242002 ABO A 03/06/25 0103 Rh Positive 03/06/25 0103 Antibody Screen Negative Negative 08/17/24 1531 HIV ^ Non Reactive Non Reactive 10/06/24 1525 Non Reactive Non Reactive 08/17/24 1531 Urine Culture Final report 02/09/25 >100,000 CFU/mL Normal Urogenital Anneliese 01/23/25 2200 No growth 12/30/24 1103 50,000 CFU/mL Normal Urogenital Anneliese 12/25/24 1805 Final report 12/21/24 1451 >100,000 CFU/mL Mixed Anneliese Isolated 11/23/24 1819 Final report 08/17/24 1531 Gonorrhea Negative Negative 02/13/25 Not Detected Not Detected 12/30/24 1106 Negative Negative 12/12/24 Negative Negative 08/17/24 1531 Chlamydia Negative Negative 02/13/25 Not Detected Not Detected 12/30/24 1106 Negative Negative 12/12/24 Negative Negative 08/17/24 1531 TSH HgB A1c Varicella IgG Hemoglobinopathy Fractionation Hemoglobinopathy (genetic testing) Cystic fibrosis Spinal muscular atrophy Fragile X testing Test Value Reference Range Date Time NIPT MSAFP AFP-4 2nd and 3rd Trimester Test Value Reference Range Date Time Hemoglobin (repeated) 9.0 g/dL 12.0 - 15.9 03/06/25 0114 9.0 g/dL 12.0 - 15.9 02/18/25 2347 9.6 g/dL 11.1 - 15.9 02/09/25 1239 9.3 g/dL 12.0 - 15.9 02/06/25 1430 9.4 g/dL 12.0 - 15.9 01/23/25 2249 9.2 g/dL 12.0 - 15.9 01/11/25 1055 9.4 g/dL 12.0 - 15.9 12/31/24 0804 9.8 g/dL 12.0 - 15.9 12/26/24 2224 10.6 g/dL 12.0 - 15.9 12/25/242002 9.9 g/dL 12.0 - 15.9 12/21/24 1445 9.9 g/dL 12.0 - 15.9 12/21/24 Hematocrit (repeated) 29.6 % 34.0 - 46.6 03/06/25 0114 28.3 % 34.0 - 46.6 02/18/25 2347 30.8 % 34.0 - 46.6 02/09/25 1239 28.5 % 34.0 - 46.6 02/06/25 1430 30.0 % 34.0 - 46.6 01/23/25 2249 27.8 % 34.0 - 46.6 01/11/25 1055 29.5 % 34.0 - 46.6 12/31/24 0804 31.7 % 34.0 - 46.6 12/26/24 222 33.1 % 34.0 - 46.6 12/25/242002 31.4 % 34.0 - 46.6 12/21/24 144 31.4 % 34.0 - 46.6 12/21/24 Platelets 269 10*3/mm3 140 - 450 03/06/25 0114 248 10*3/mm3 140 - 450 02/18/25 2347 268 x10E3/uL 150 - 450 02/09/25 1239 245 10*3/mm3 140 - 450 02/06/25 1430 241 10*3/mm3 140 - 450 01/23/25 2249 240 10*3/mm3 140 - 450 01/11/25 1055 241 10*3/mm3 140 - 450 12/31/24 0804 258 10*3/mm3 140 - 450 12/26/24 2224 264 10*3/mm3 140 - 450 12/25/242002 256 10*3/mm3 140 - 450 12/21/24 1445 256 10E3/mm3 140 - 450 12/21/24 ^ 256 10*3/uL 155 - 369 10/06/24 1525 241 10*3/mm3 140 - 450 10/05/24 1832 317 x10E3/uL 150 - 450 08/17/24 1531 354 10*3/mm3 140 - 450 07/25/24 1426 1 hour GTT 132 mg/dL 65 - 139 01/11/25 1055 Antibody Screen (repeated) Negative 03/06/25 0103 Negative 02/18/25 2347 Negative 01/23/25 2249 Negative Negative 01/11/25 1055 Negative 12/31/24 0804 Negative 12/25/242002 3rd TM syphilis scrn (repeated) RPR Non Reactive Non Reactive 01/11/25 1055 3rd TM syphilis scrn (repeated) TP-Ab Non-Reactive Non-Reactive 01/23/25 2249 Non-Reactive Non-Reactive 12/25/242002 3rd TM syphilis screen TB-Ab (FTA) Non-Reactive Non-Reactive 01/23/25 2249 Non-Reactive Non-Reactive 12/25/242002 Syphilis cascade test TP-Ab (EIA) Syphilis cascade TPPA GTT Fasting GTT 1 Hr GTT 2 Hr GTT 3 Hr Group B Strep No Group B Streptococcus isolated 02/13/25 1855 Other testing Test Value Reference Range Date Time Parvo IgG CMV IgG Drug Screening Test Value Reference Range Date Time Amphetamine Screen Negative ng/mL Qqiugl=9399 08/17/24 1531 Barbiturate Screen Negative ng/mL Hqvxki=728 08/17/24 1531 Benzodiazepine Screen Negative ng/mL Acpvoc=837 08/17/24 1531 Methadone Screen Negative ng/mL Titrqf=547 08/17/24 1531 Phencyclidine Screen Negative ng/mL Cutoff=25 08/17/24 1531 Opiates Screen Negative ng/mL Axrhyh=782 08/17/24 1531 THC Screen Negative ng/mL Cutoff=20 08/17/24 1531 Cocaine Screen Negative ng/mL Qhgdks=834 08/17/24 1531 Propoxyphene Screen Negative ng/mL Xqykcj=004 08/17/24 1531 Buprenorphine Screen Methamphetamine Screen Oxycodone Screen Tricyclic Antidepressants Screen Legend ^: Historical External Results Outside Results - Transcribed From Office Records - See Scanned Records For Details Test Value Date Time ABO A 03/06/25 0103 Rh Positive 03/06/25 0103 Antibody Screen Negative 03/06/25 0103 Negative 02/18/25 2347 Negative 01/23/25 2249 Negative 01/11/25 1055 Negative 12/31/24 0804 Negative 12/25/242002 Negative 08/17/24 1531 Varicella IgG Rubella 2.80 index 08/17/24 1531 Hgb 9.0 g/dL 03/06/25 0114 9.0 g/dL 02/18/25 2347 9.6 g/dL 02/09/25 1239 9.3 g/dL 02/06/25 1430 9.4 g/dL 01/23/25 2249 9.2 g/dL 01/11/25 1055 9.4 g/dL 12/31/24 0804 9.8 g/dL 12/26/24 2224 10.6 g/dL 12/25/242002 9.9 g/dL 12/21/24 1445 9.9 g/dL 12/21/24 ^ 11.3 g/dL 10/06/24 1525 11.1 g/dL 10/05/24 1832 11.5 g/dL 08/17/24 1531 11.1 g/dL 07/25/24 1426 Hct 29.6 % 03/06/25 0114 28.3 % 02/18/25 2347 30.8 % 02/09/25 [...] Vag-Spont EPI N JOSE F Name: Ladan Maria R Luna Apgar1: 7 Apgar5: 9 Obstetric Comments [...] at [address] Cordero in [place] Baseline PEP, 24 Hour urine, HGBA1C, TSH drawn at [facility] (29wk); not on medication No meds [...] Herpes last outbreak 09/2023, now taking valtrex History of depression Hyperemesis gravidarum Hypertension treated with metoprolol Maternal anemia in , antepartum 10/26/2023 On iron supplementation. 11/05/2023 HCT 29.1%. 11/18/2023 Rx Accrufer 30 mg bid (normal spontaneous vaginal delivery) 12/12/2023 PCR DNA positive for HSV2 Polycystic ovary syndrome 03-10-2022 11/18/2023 23-year-old G1, P0 Transfer of care @ 28 weeks from [place] unemployed. 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 Anemia 28 weeks hematocrit 29%.: on iron. PDC u/s 30 wk; EFW 57% Growth ultrasound 12/01 EFW 48%. AC 66%. Psoriatic arthritis [address] 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 Her smoking use included cigarettes. She has been exposed to tobacco smoke. She has never used smokeless tobacco. reports no history of alcohol use. reports no history of drug use. General ROS: Pertinent items are noted in HPI Objective Vital Signs Range for the last 24 hours Temperature: Temp: [98.3 ??F (36.8 ??C)] 98.3 ??F (36.8 ??C) Temp Source: Temp src: Oral BP: BP: (115)/(56) 115/56 Pulse: Heart Rate: [87] 87 Respirations: Resp: [16] 16 SPO2: O2 Amount (l/min): O2 Devices Weight: Weight: [124 kg (273 lb)] 124 kg (273 lb) Physical Examination: per laborist Presentation: Per laborist Heart Rate Assessment Method: HR Assessment Method: external, spiral electrode Beats/min: HR (beats/min): 135 Baseline: HR Baseline: normal range Variability: HR Variability: moderate (amplitude range 6 to 25 bpm) Accels: HR Accelerations: greater than/equal to 15 bpm, lasting at least 15 seconds Decels: HR Decelerations: absent Tracing Category: Uterine Assessment Method: Method: IUPC (intrauterine pressure catheter) Frequency (min): Contraction Frequency (Minutes): 2 Ctx Count in 10 min: Duration: Intensity: Intensity by IUPC: Contraction Intensity (mmHg) by IUPC: 70-75 Resting Tone: Resting Tone by IUPC: Uterine Resting Tone (mmHg) by IUPC: 20 [place] Units: Cervical Exam: Exam by: Method: sterile vaginal exam performed (03/06/25 0442) Cervical Dilation (cm): 8 Cervical Effacement: 100 Station: 0 Group B Strep Culture Date Value Ref Range Status 02/13/2025 No Group B Streptococcus isolated Final Assessment & Plan Chronic hypertension affecting Obesity in , antepartum Proteinuria affecting , antepartum labor in third trimester with term delivery Poor growth affecting management of mother in third trimester Assessment: Intrauterine at 37w0d weeks gestation with reactive status. IOL 2/2 CHTN and hx of IUGR (now resolved), per MFM recs Obstetrical history significant for PTL x2 in this , s/p BMTZ x4. GBS status: negative Plan: Pitocin IOL Plan of care has been reviewed with patient. Risks, benefits of treatment plan have been discussed. All questions have been answered. Aydin Crowe MD 03/06/2025 05:15 EDT documented in this encounter Nursing Notes * Jennifer King, RN - 03/08/2025 9:46 AM EDT Goal Outcome Evaluation: Plan of Care Reviewed With: patient Progress: improving Outcome Evaluation: vs labs lochia wnl, pain controlled, bonding well w/nb * Erika Santos, RN - 03/06/2025 2:44 PM EDT 03/06/25 1444 Maternal Information Date of Referral 03/06/25 Person Making Referral sap security consultant (courtesy visit; newly ) Maternal Reason for Referral other (see comments) (2nd time mother; 1st child did not latch, but mother pumped for 6 weeks; history of PCOS; independent; offered latch assistance, mother accepted) Infant Reason for Referral 35-37 weeks gestation (encouraged pumping due to gestational age and due to history of PCOS to stimulate/encouragemilk production; SECURITY TEAM LEAD following) Maternal Assessment Breast Size Issue none Breast Shape Bilateral:;round Breast Density Bilateral:;soft Nipples Bilateral:;everted;other (see comments) (medium sized nipples) Left Nipple Symptoms intact;nontender Right Nipple Symptoms intact;nontender Maternal Feeding Maternal Emotional State independent;receptive Infant Positioning clutch/football (left; infant not interested in latching even with arousal techniques, too sleepy) Comfort Measures Before/During Feeding latch adjusted;infant position adjusted;maternal position adjusted (to demonstrate deep latching and positioning) Latch Assistance verbal guidance offered;minimal assistance Support Person Involvement verbally supports mother Milk Expression/Equipment Breast Pump Type double electric, hospital grade;double electric, personal (Spectra; provided hospital pump due to infant gestational age and history of PCOS) Breast Pump Flange Type hard Breast Pump Flange Size 21 mm;other (see comments) (discussed flange sizing; encouraged tightest comfortable fit) Equipment for Home Use pump not needed at this time Breast Pumping Breast Pumping Interventions early pumping promoted;post-feed pumping encouraged (encouraged pumping due to infant gestational age, history of PCOS and if supplementation is used, to stimulate/encourage milk production) Breast Pumping double electric breast pump utilized (mother began pumping; encouraged to provide any colostrum collected; showed how to syringe feed infant; mother had colostrum at bedside that pumped with manual, encouraged to provide ) Referrals Referrals outpatient program Outpatient Program Follow-up Date/Time as needed Courtesy visit; newly . Mother independent. Offered latch assistance and mother accepted.Prior to nursing, encouraged arousal techniques. FOB unswaddled and burped. Mother then placed in L football hold; infant not interested in latching, too sleepy. Demonstrated alignment and nipple to nose and chin to lower part of areola. Discussed deep latching and transfer of milk; encouraged every three hour feedings along with feeding cues. SECURITY TEAM LEAD following. Provided hospital pump and mother began pumping. Had colostrum at bedside from manual pump and encouraged to provide infant any EBM collected. Provided syringes and how to syringe feedinfant. Provided tips. Encouraged pumping post feed due to history of PCOS and infant's gestational age, to stimulate/encourage milk production. Mother verbalized understanding. To call PRN. documented in this encounter Plan of Treatment Upcoming Encounters Date Type Department Care Team (Late st Contact Info) Description 04/17/2025 1:40 PM EDT Visit [facility] OBGYN [address] [phone] Aydin Crowe MD [address] [address] documented as of this encounter Procedures Procedure Name Priority Date/Time Associated Diagnosis Comments CBC (NO DIFF) Routine 03/08/2025 5:27 AM EDT CBC WITH AUTO DIFFERENTIAL Routine 03/07/2025 5:07 AM EDT CBC AND DIFFERENTIAL Routine 03/07/2025 5:07 AM EDT TISSUE PATHOLOGY EXAM Routine 03/06/2025 5:50 AM EDT PROTEIN / CREATININE RATIO, URINE Routine 03/06/2025 1:19 AM EDT CBC (NO DIFF) Routine 03/06/2025 1:14 AM EDT TREPONEMA PALLIDUM AB W/REFLEX RPR Routine 03/06/2025 1:11 AM EDT IRON PROFILE STAT 03/06/2025 1:11 AM EDT URIC ACID Routine 03/06/2025 1:11 AM EDT LACTATE DEHYDROGENASE Routine 03/06/2025 1:11 AM EDT FERRITIN STAT 03/06/2025 1:11 AM EDT COMPREHENSIVE METABOLIC PANEL Routine 03/06/2025 1:11 AM EDT TYPE AND SCREEN Routine 03/06/2025 1:03 AM EDT documented in this encounter Results * (ABNORMAL) CBC (No Diff) (03/08/2025 5:27 AM EDT) [facility] WBC 11.01(H) 3.40 - 10.80 10*3/mm3 03/08/2025 6:04 AM EDT [facility] RBC 2.82(L) 3.77 - 5.28 10*6/mm3 03/08/2025 6:04 AM EDT [facility] Hemoglobin 7.2(L) 12.0 - 15.9 g/dL 03/08/2025 6:04 AM EDT [facility] Hematocrit 24.1(L) 34.0 - 46.6 % 03/08/2025 6:04 AM EDT [facility] MCV 85.5 79.0 - 97.0 fL 03/08/2025 6:04 AM EDT [facility] MCH 25.5(L) 26.6 - 33.0 pg 03/08/2025 6:04 AM EDT [facility] MCHC 29.9(L) 31.5 - 35.7 g/dL 03/08/2025 6:04 AM EDT [facility] RDW 15.5(H) 12.3 - 15.4 % 03/08/2025 6:04 AM EDT [facility] RDW-SD 47.4 37.0 - 54.0 fl 03/08/2025 6:04 AM EDT [facility] MPV 11.8 6.0 - 12.0 fL 03/08/2025 6:04 AM EDT [facility] Platelets 213 140 - 450 10*3/mm3 03/08/2025 6:04 AM EDT [facility] Blood Venipuncture / Unknown 03/08/2025 5:27 AM EDT 03/08/2025 5:55 AM EDT Kelly Patricia BODY AND FRAME MAN LAB BLOOD ORDERABLES Final Result [facility]
[address] [place] [address], * (ABNORMAL) CBC Auto Differential (03/07/2025 5:07 AM EDT) WBC 9.80 3.40 - 10.80 10*3/mm3 03/07/2025 5:34 AM EDT [facility] RBC 2.90(L) 3.77 - 5.28 10*6/mm3 03/07/2025 5:34 AM EDT [facility] Hemoglobin 7.6(L) 12.0 - 15.9 g/dL 03/07/2025 5:34 AM EDT [facility] Hematocrit 24.7(L) 34.0 - 46.6 % 03/07/2025 5:34 AM EDT [facility] MCV 85.2 79.0 - 97.0 fL 03/07/2025 5:34 AM EDT [facility] MCH 26.2(L) 26.6 - 33.0 pg 03/07/2025 5:34 AM EDT [facility] MCHC 30.8(L) 31.5 - 35.7 g/dL 03/07/2025 5:34 AM [facility] RDW 15.0 12.3 - 15.4 % [facility] RDW-SD 46.5 37.0 - 54.0 fl 03/07/2025 5:34 AM [facility] MPV 11.9 6.0 - 12.0 fL 03/07/2025 5:[facility] Platelets 210 140 - 450 10*3/mm3 03/07/2025 5:34 AM [facility] Neutrophil % 67.5 42.7 - 76.0 % 03/07/2025 5:34 AM [facility] Lymphocyte % 21.3 19.6 - 45.3 % 03/07/2025 5:34 AM [facility] Monocyte % 5.8 5.0 - 12.0 % 03/07/2025 5:34 AM [facility] Eosinophil % 0.9 0.3 - 6.2 % 03/07/2025 5:34 AM [facility] Basophil % 0.4 0.0 - 1.5 % 03/07/2025 5:34 AM [facility] Immature Grans % 4.1(H) 0.0 - 0.5 % 03/07/2025 5:34 AM [facility] Neutrophils, Absolute 6.61 1.70 - 7.00 10*3/mm3 03/07/2025 5:[facility] Lymphocytes, Absolute 2.09 0.70 - 3.10 10*3/mm3 03/07/2025 5:[facility] Monocytes, Absolute 0.57 0.10 - 0.90 10*3/mm3 03/07/2025 5:34 [facility] Eosinophils, Absolute 0.09 0.00 - 0.40 10*3/mm3 03/07/2025 5:34 AM EDT [facility] Basophils, Absolute 0.04 0.00 - 0.20 10*3/mm3 03/07/2025 5:34 AM EDT [facility] Immature Grans, Absolute 0.40(H) 0.00 - 0.05 10*3/mm3 03/07/2025 5:34 AM EDT [facility] nRBC 0.3(H) 0.0 - 0.2 /100 WBC 03/07/2025 5:34 AM EDT [facility] Blood Venipuncture / Unknown 03/07/2025 5:07 AM EDT 03/07/2025 5:16 AM EDT Aydin Crowe MD LAB BLOOD ORDERABLES Final Resu lt [facility]
[address] [place] [address], * Tissue Pathology Exam (03/06/2025 5:50 AM EDT) Case Report Surgical Pathology Report Case: [id number] Authorizing Provider: Aydin Crowe MD Collected: 03/06/2025 05:50 AM Ordering Location: [facility] Received: 03/06/2025 06:11 AM LABOR DELIVERY Pathologist: Shilpa Rascon MD Specimen: Placenta, Placenta, 37 weeks IUGR, hypertension 03/07/2025 11:25 AM EDT [facility] Clinical Information 37 weeks, IUGR, hypertension 03/07/2025 11:25 AM EDT [facility] Final Diagnosis Placenta, vaginal delivery: Mature placental parenchyma with increased perivillous and subchorionic fibrin deposition Three-vessel umbilical cord 03/07/2025 11:25 AM EDT [facility] at 1125 EDT Gross Description 1. Placenta. Received in formalin labeled placenta is a 16 x 15 x 3.5 cm hernandez placenta with a trimmed weight of 606 g. The umbilical cord is 30.2 cm long by 1.2 cm in diameter and has an eccentric insertion, 4 cm from the nearest edge. The cord has 3 vessels and multiple twists. At least 1 false knot is present. No true knots are identified. The membranes have a 100% circumvallate insertion and are monet-marie, glistening and translucent. The surface is blue-monet, glistening and well vascularized. Scattered subchorionic fibrin deposition is present, occupying at least 20% of the total surface area. The uterine surface is complete, dark brown, and lobulated. Sectioning reveals red, spongy parenchyma with no gross lesions identified. Tube Machine Operator sections are submitted as follows: 1A-umbilical cord with false knot and membrane roll 9V-[id number]-[id number] disc with subchorionic fibrin 0K-qrfh-sgyeyfpkx disc at cord insertion site. LDP 03/07/2025 11:25 AM EDT [facility] Microscopic Description The slides are reviewed and demonstrate histopathologic features supporting the above rendered diagnosis. 03/07/2025 11:25 AM EDT [facility] Tissue Placental structure / Unknown Collection / Unknown 03/06/2025 5:50 AM EDT 03/06/2025 6:11 AM EDT Aydin Crowe MD PATHOLOGY/CYTOLOGY ORDERABLES F inal Result [facility]
[address] [place] [address], * (ABNORMAL) Protein / Creatinine Ratio, Urine - Urine, Clean Catch (03/06/2025 1:19 AM EDT) Protein/Creati nine Ratio, Urine 399.3(H) 0.0 - 200.0 mg/G Crea 03/06/2025 9:31 AM EDT [facility] Creatinine, Urine 108.2 mg/dL 03/06/2025 9:31 AM EDT [facility] Total Protein, Urine 43.2 mg/dL 03/06/2025 9:31 AM EDT [facility] Urine Urine specimen obtained by clean catch procedure / Unknown Collection / Unknown 03/06/2025 1:19 AM EDT 03/06/2025 1:19 AM EDT Aydin Crowe MD URINE ORDERABLES Final Result [facility]
[address] [place] [address], * (ABNORMAL) CBC (No Diff) (03/06/2025 1:14 AM EDT) WBC 11.53(H) 3.40 - 10.80 10*3/mm3 03/06/2025 1:20 AM EDT [facility] RBC 3.57(L) 3.77 - 5.28 10*6/mm3 03/06/2025 1:20 AM EDT [facility] Hemoglobin 9.0(L) 12.0 - 15.9 g/dL 03/06/2025 1:20 AM EDT [facility] Hematocrit 29.6(L) 34.0 - 46.6 % 03/06/2025 1:20 AM EDT [facility] MCV 82.9 79.0 - 97.0 fL 03/06/2025 1:20 AM EDT [facility] MCH 25.2(L) 26.6 - 33.0 pg 03/06/2025 1:20 AM EDT [facility] MCHC 30.4(L) 31.5 - 35.7 g/dL 03/06/2025 1:20 AM EDT [facility] RDW 15.2 12.3 - 15.4 % 03/06/2025 1:20 AM EDT [facility] RDW-SD 46.0 37.0 - 54.0 fl 03/06/2025 1:20 AM EDT [facility] MPV 11.7 6.0 - 12.0 fL 03/06/2025 1:20 AM EDT [facility] Platelets 269 140 - 450 10*3/mm3 03/06/2025 1:20 AM EDT [facility] Blood Venipuncture / Unknown 03/06/2025 1:14 AM EDT 03/06/2025 1:14 AM EDT us yAdin Crowe MD LAB BLOOD ORDERABLES Final Resu lt Performing Organization Address [facility] Co de Phone Number [facility]
[address] [place] [address], * (ABNORMAL) Ferritin (03/06/2025 1:11 AM EDT) Ferritin 7.88(L) 13.00 - 150.00 ng/mL 03/06/2025 6:36 AM EDT [facility] Blood Venipuncture / Unknown 03/06/2025 1:11 AM EDT 03/06/2025 2:53 AM EDT Narrative [facility] - 03/06/2025 6:36 AM EDT Results may be falsely decreased if patient taking Biotin. us Aydin Crowe MD LAB BLOOD ORDERABLES Final Resu lt Performing Organization Address [facility] de Phone Number [facility]
[address] [place] [address], * (ABNORMAL) Iron Profile w/o Ferritin (03/06/2025 1:11 AM EDT) Iron 54 37 - 145 mcg/dL 03/06/2025 6:36 AM EDT [facility] Iron Saturation (TSAT) 8(L) 20 - 50 % 03/06/2025 6:36 AM EDT [facility] Transferrin 482(H) 200 - 360 mg/dL 03/06/2025 6:36 AM EDT [facility] TIBC 718(H) 298 - 536 mcg/dL 03/06/2025 6:36 AM EDT [facility] Blood Venipuncture / Unknown 03/06/2025 1:11 AM EDT 03/06/2025 2:53 AM EDT Aydin Crowe MD LAB BLOOD ORDERABLES Final Resu lt [facility]
[address] [place] [address], * (ABNORMAL) Comprehensive Metabolic Panel (03/06/2025 1:11 AM EDT) Pathologist [facility] Glucose 84 65 - 99 mg/dL 03/06/2025 3:12 AM EDT [facility] BUN 8.9 6.0 - 20.0 mg/dL 03/06/2025 3:12 AM EDT [facility] Creatinine 0.87 0.57 - 1.00 mg/dL 03/06/2025 3:12 AM EDT [facility] Sodium 137 136 - 145 mmol/L 03/06/2025 3:12 AM EDT [facility] Potassium 4.0 3.5 - 5.2 mmol/L 03/06/2025 3:12 AM EDT [facility] Chloride 106 98 - 107 mmol/L 03/06/2025 3:12 AM EDT [facility] CO2 18.4(L) 22.0 - 29.0 mmol/L 03/06/2025 3:12 AM EDT [facility] Calcium 8.7 8.6 - 10.5 mg/dL 03/06/2025 3:12 AM EDT [facility] Total Protein 6.3 6.0 - 8.5 g/dL 03/06/2025 3:12 AM EDT [facility] Albumin 3.4(L) 3.5 - 5.2 g/dL 03/06/2025 3:12 AM EDT [facility] ALT (SGPT) 22 1 - 33 U/L 03/06/2025 3:12 AM EDT [facility] AST (SGOT) 16 1 - 32 U/L 03/06/2025 3:12 AM EDT [facility] Alkaline Phosphatase 113 39 - 117 U/L 03/06/2025 3:12 AM EDT [facility] Total Bilirubin 0.7 0.0 - 1.2 mg/dL 03/06/2025 3:12 AM EDT [facility] Globulin 2.9 gm/dL 03/06/2025 3:12 AM EDT [facility] Comment:Calculated Result A/G Ratio 1.2 g/dL 03/06/2025 3:12 AM EDT [facility] BUN/Creatinine Ratio 10.2 7.0 - 25.0 03/06/2025 3:12 AM EDT [facility] Anion Gap 12.6 5.0 - 15.0 mmol/L 03/06/2025 3:12 AM EDT [facility] eGFR 95.6 >60.0 mL/min/1.7 3 03/06/2025 3:12 AM EDT [facility] Blood Venipuncture / Unknown 03/06/2025 1:11 AM EDT 03/06/2025 2:53 AM EDT [facility] - 03/06/2025 3:12 AM EDT GFR Categories in Chronic Kidney [...] not include race as a factor us Aydin Crowe MD LAB BLOOD ORDERABLES Final Resu lt [facility]
[address] [place] [address], * (ABNORMAL) Uric Acid (03/06/2025 1:11 AM EDT) Pathologist [facility] Uric Acid 6.6(H) 2.4 - 5.7 mg/dL 03/06/2025 3:12 AM EDT [facility] Comment:Falsely depressed re sults may occur on samples drawn from patients receiving N-Acetylcysteine (NAC) or Metamizole. Blood Venipuncture / Unknown 03/06/2025 1:11 AM EDT 03/06/2025 2:53 AM EDT us Aydin Crowe MD LAB BLOOD ORDERABLES Final Resu lt Performing Organization Address [facility]/ZIP Co de Phone Number [facility]
[address] [place] [address], * Lactate Dehydrogenase (03/06/2025 1:11 AM EDT) [facility] LDH 187 135 - 214 U/L 03/06/2025 3:12 AM EDT [facility] Blood Venipuncture / Unknown 03/06/2025 1:11 AM EDT 03/06/2025 2:53 AM EDT Aydin Crowe MD LAB BLOOD ORDERABLES Final Resu lt Performing Organization Address [facility] Co de Phone Number [facility]
[address] [place] [address], * Treponema pallidum AB w/Reflex RPR (03/06/2025 1:11 AM EDT) [facility] Treponemal AB Total Non-Reacti ve Non-React ramya 03/06/2025 1:42 PM EDT [facility] Blood Venipuncture / Unknown 03/06/2025 1:11 AM EDT 03/06/2025 1:11 AM EDT Narrative [facility] - 03/06/2025 1:42 PM EDT Reactive results will reflex RPR testing. us Aydin Crowe MD LAB BLOOD ORDERABLES Final Resu lt Performing Organization Address City/[facility]/ZIP Co de Phone Number [facility]
[address] [place] [id number], * Type & Screen (03/06/2025 1:03 AM EDT) ABO Type A 03/06/2025 1:37 AM EDT [facility] RH type Positive 03/06/2025 1:37 AM EDT [facility] Antibody Screen Negative 03/06/2025 1:37 AM EDT [facility] T&S Expiration Date 03/09/2025 11:59:59 PM 03/06/2025 1:37 AM EDT [facility] Blood Venipuncture / Unknown 03/06/2025 1:03 AM EDT 03/06/2025 1:03 AM EDT us Aydin Crowe MD BLOOD BANK TEST ORDERABLES Edit ed Result - Final Performing Organization Address [facility] Co de Phone Number [facility]
[address] [place] [address], documented in this encounter Visit Diagnoses Diagnosis Chronic hypertension affecting - Primary Obesity in , antepartum Obesity complicating , childbirth, or the puerperium, antepartum condition or complication labor in third trimester with term delivery Proteinuria affecting , antepartum Poor growth affecting management of mother in third trimester History of pre-eclampsia in prior , currently with other poor obstetric history documented in this encounter Admitting Diagnoses Diagnosis Chronic hypertension in obstetric context, third trimester documented in this encounter Administered Medications Inactive Administered Medications - up to 3 most recent administrations Medication Order MAR Action Action Date Dose Rate Site acetaminophen (TYLENOL) tablet 650 mg 650 mg, Oral, Every 6 Hours PRN, Mild Pain, Second Line: Mild pain unrelieved by ibuprofen. Stagger doses 3 hours after dose of ibuprofen., Starting on Thu03/06/25 at 0756, If given for fever, use fever parameter: fever greater than 100.4 F Based on patient request - if ordered for moderate or severe pain, provider allows for administration of a medication prescribed for a lower pain scale. Do not exceed 4 grams of acetaminophen in a 24 hr period. Max dose of 2gm for AST/ALT greater than 120 units/L. If given for pain, use the following pain scale: Mild Pain = Pain Score of 1-3, CPOT 1-2 Moderate Pain = Pain Score of 4-6, CPOT 3-4 Severe Pain = Pain Score of 7-10, CPOT 5-8 Given 03/08/2025 8:13 AM EDT 650 mg Given 03/07/2025 8:17 PM EDT 650 mg Given 03/07/2025 2:33 PM EDT 650 mg acetaminophen (TYLENOL) tablet 975 mg 975 mg, Oral, Every 6 Hours PRN, Mild Pain, Headache, Starting on Thu03/06/25 at 0019, Based on patient request - if ordered for moderate or severe pain, provider allows for administration of a medication prescribed for a lower pain scale. Based on patient request - if ordered for moderate or severe pain, provider allows for administration of a medication prescribed for a lower pain scale. Do not exceed 4 grams of acetaminophen in a 24 hr period. Max dose of 2gm for AST/ALT greater than 120 units/L. If given for pain, use the following pain scale: Mild Pain = Pain Score of 1-3, CPOT 1-2 Moderate Pain = Pain Score of 4-6, CPOT 3-4 Severe Pain = Pain Score of 7-10, CPOT 5-8 Given 03/06/2025 7:17 AM EDT 975 mg benzocaine-menthol (DERMOPLAST) 20-0.5 % topical spray Topical, As Needed, Mild Pain, perineal pain, Starting on Thu03/06/25 at 0756, May leave at bedside. If given for pain, use the following pain scale: Mild Pain = Pain Score of 1-3, CPOT 1-2 Moderate Pain = Pain Score of 4-6, CPOT 3-4 Severe Pain = Pain Score of 7-10, CPOT 5-8 Given 03/06/2025 11:19 AM EDT carboprost (HEMABATE) injection 250 mcg 250 mcg, Intramuscular, Every 15 Minutes PRN, hemorrhage, Starting on Thu03/06/25 at 0756, For 8 doses, DO NOT administer IV Refrigerate. Use filter needle to withdraw dose. ferrous sulfate tablet 325 mg 325 mg, Oral, Daily With Breakfast, First dose on Thu03/07/25 at 1230, Swallow whole. Do not crush, split, or chew. Take with food if GI upset occurs. Given 03/08/2025 8:13 AM EDT 325 mg Given 03/07/2025 2:33 PM EDT 325 mg ibuprofen (ADVIL,MOTRIN) tablet 600 mg 600 mg, Oral, Every 6 Hours PRN, Mild Pain, First Line: Mild pain., Starting on Thu03/06/25 at 0756, Based on patient request - if ordered for moderate or severe pain, provider allows for administration of a medication prescribed for a lower pain scale. Mucous membrane irritant. Do not crush or chew tablet or capsule unless administered through a feeding tube. If given for pain, use the following pain scale: Mild Pain = Pain Score of 1-3, CPOT 1-2 Moderate Pain = Pain Score of 4-6, CPOT 3-4 Severe Pain = Pain Score of 7-10, CPOT 5-8 Given 03/08/2025 1:19 AM EDT 600 mg Given 03/07/2025 8:18 AM EDT 600 mg Given 03/06/2025 8:29 PM EDT 600 mg iron sucrose (VENOFER) 300 mg in sodium chloride 0.9 % 250 mL IVPB 300 mg, Intravenous, at 166.7 mL/hr, Administer over 90 Minutes, Every 24 Hours, First dose on Thu03/06/25 at 0900, For 2 doses, Monitor blood pressure pre and post infusion. Infuse 100mg over 15 minutes, 200mg over 15 minutes, 300mg over 90 minutes, 400mg over 2.5 hours, and 500mg over 3.5 to 4 hours., Please Select Indication for Intravenous Iron Therapy (Criteria can be seen in report to the left). NOTE: IRON SUCROSE P&T APPROVED FOR , , OR LACTATING PATIENTS ONLY). Iron Deficiency in Obstetrics New Bag 03/06/2025 11:51 AM EDT 300 mg 166.7 mL/hr lactated ringers infusion 125 mL/hr, Intravenous, Continuous, Starting on Thu03/06/25 at 0115, For 2 days New Bag 03/06/2025 1:44 AM EDT 125 mL/hr 125 mL/hr methylergonovine (METHERGINE) injection 200 mcg 200 mcg, Intramuscular, Once As Needed, hemorrhage, Starting on Thu03/06/25 at 0756, For 1 dose, Group 2 ([place]) Hazardous Drug - Reproductive Risk Only - See Handling Guide miSOPROStol (CYTOTEC) tablet 800 mcg 800 mcg, Rectal, Once As Needed, Hemorrhage, Starting on Thu03/06/25 at 0756, For 1 dose, Group 2 ([place]) Hazardous Drug - Reproductive Risk Only - See Handling Guide ondansetron (ZOFRAN) injection 4 mg 4 mg, Intravenous, Every 6 Hours PRN, Nausea, Vomiting, Starting on Thu03/06/25 at 0756, If BOTH ondansetron (ZOFRAN) and promethazine (PHENERGAN) are ordered use ondansetron first and THEN promethazine IF ondansetron is ineffective. ondansetron (ZOFRAN) injection 4 mg 4 mg, Intravenous, Every 6 Hours PRN, Nausea, Vomiting, Starting on Thu03/06/25 at 0756, If BOTH ondansetron (ZOFRAN) and promethazine (PHENERGAN) are ordered use ondansetron first and THEN promethazine IF ondansetron is ineffective. ondansetron ODT (ZOFRAN-ODT) disintegrating tablet 4 mg 4 mg, Oral, Every 6 Hours PRN, Nausea, Vomiting, Starting on Thu03/06/25 at 0756, If BOTH ondansetron (ZOFRAN) and promethazine (PHENERGAN) are ordered use ondansetron first and THEN promethazine IF ondansetron is ineffective. Place on tongue and allow to dissolve. ondansetron ODT (ZOFRAN-ODT) disintegrating tablet 4 mg 4 mg, Oral, Every 6 Hours PRN, Nausea, Vomiting, Starting on Thu03/06/25 at 0756, If BOTH ondansetron (ZOFRAN) and promethazine (PHENERGAN) are ordered use ondansetron first and THEN promethazine IF ondansetron is ineffective. Place on tongue and allow to dissolve. oxyCODONE (ROXICODONE) immediate release tablet 10 mg 10 mg, Oral, Every 4 Hours PRN, Severe Pain, Starting on Thu03/06/25 at 0756, For 5 days, Based on patient request - if ordered for moderate or severe pain, provider allows for administration of a medication prescribed for a lower pain scale. If given for pain, use the following pain scale: Mild Pain = Pain Score of 1-3, CPOT 1-2 Moderate Pain = Pain Score of 4-6, CPOT 3-4 Severe Pain = Pain Score of 7-10, CPOT 5-8 oxyCODONE (ROXICODONE) immediate release tablet 5 mg 5 mg, Oral, Every 4 Hours PRN, Moderate Pain, Starting on Thu03/06/25 at 0756, For 5 days, Based on patient request - if ordered for moderate or severe pain, provider allows for administration of a medication prescribed for a lower pain scale. (RANJANA) If given for pain, use the following pain scale: Mild Pain = Pain Score of 1-3, CPOT 1-2 Moderate Pain = Pain Score of 4-6, CPOT 3-4 Severe Pain = Pain Score of 7-10, CPOT 5-8 oxytocin (PITOCIN) 30 units in 0.9% sodium chloride 500 mL (premix) 2-20 felix-units/min (2-20 mL/hr), Intravenous, Titrated, Starting on Thu03/06/25 at 0115, Start at 2 felix-units/min and titrate up or down by 2 felix-units every 30 min to a max of 20 felix-units/min. Titrate to maternal/ tolerance, with a goal of achieving an adequate labor pattern defined by progressive cervical effacement and cervical dilation of approximately 0.5 cm/hr to 1 cm/hr once active labor is achieved. Contractions should not be more frequent than every 2 minutes. If tachysystole occurs with either FHR category III or FHR category III develops without tachysystole, stop oxytocin infusion and notify physician. Notify physician for tachysystole regardless of FHR category. If oxytocin has been stopped for less than 30 minutes, FHR is reassuring and no uterine tachysystole present, oxytocin may be restarted at half the rate that caused tachysystole. If oxytocin has been stopped for 30 minutes or longer, oxytocin must be restarted at the initial dose. Group 2 ([place]) Hazardous Drug - Reproductive Risk Only - See Handling Guide Rate/Dose Change 03/06/2025 3:19 AM EDT 6 felix-units/mi n 6 mL/hr Rate/Dose Change 03/06/2025 2:41 AM EDT 4 felix-units/min 4 mL/hr New Bag 03/06/2025 1:43 AM EDT 2 felix-units/min 2 mL/h r witch rodríguez-glycerin (TUCKS) pad 1 Pad 1 Pad (1 each), Topical, As Needed, Irritation, Hemorrhoids, Starting on Thu03/06/25 at 0756, May leave at bedside. Given 03/06/2025 11:19 AM EDT 1 Andrey bella documented in this encounter Active and Recently Administered Medications Times are shown in EDT. Scheduled Medication Order 03/06/2025 03/07/2025 03/08/2025 docusate sodium (COLACE) capsule 100 mg 100 mg, Oral, 2 Times Daily, First dose on Thu03/06/25 at 0900, Swallow whole. Do not open, crush, or chew capsule. 0900 (Due)2028 (Not Given - Provider: Aminah Paz RN - Reason: Patient/family refused) 0915 (Not Given - Provider: Jennifer King RN - Reason: Patient/family refused)2017 (Not Given - Provider: Reba Mcpherson RN - Reason: Patient/family refused) 0900 (Due) ferrous sulfate tablet 325 mg 325 mg, Oral, Daily With Breakfast, First dose on Thu03/07/25 at 1230, Swallow whole. Do not crush, split, or chew. Take with food if GI upset occurs. 1433 (Given - Provider: Jennifer King, SUKUMAR) 0813 (Given - Provider: Jennifer King, SUKUMAR) iron sucrose (VENOFER) 300 mg in sodium chloride 0.9 % 250 mL IVPB 300 mg, Intravenous, at 166.7 mL/hr, Administer over 90 Minutes, Every 24 Hours, First dose on Thu03/06/25 at 0900, For 2 doses, Monitor blood pressure pre and post infusion. Infuse 100mg over 15 minutes, 200mg over 15 minutes, 300mg over 90 minutes, 400mg over 2.5 hours, and 500mg over 3.5 to 4 hours., Please Select Indication for Intravenous Iron Therapy (Criteria can be seen in report to the left). NOTE: IRON SUCROSE P&T APPROVED FOR , , OR LACTATING PATIENTS ONLY). Iron Deficiency in Obstetrics 1151 (New Bag - Provider: Jessica Mcallister RN) 0915 (Not Given - Provider: Jennifer King RN - Reason: Loss of IV access) oxytocin (PITOCIN) 30 units in 0.9% sodium chloride 500 mL (premix)(Linked Group 1) 999 mL/hr, Intravenous, Once, On Thu03/06/25 at 0845, For 1 dose, Infuse 250 ml at 999 ml/hr. If patient has a previous bag with remaining volume, please use remainder of that bag to avoid waste. Group 2 ([place]) Hazardous Drug - Reproductive Risk Only - See Handling Guide 0845 (Due) polyethylene glycol (MIRALAX) packet 17 g 17 g, Oral, Daily, First dose on Thu03/06/25 at 0900, Use 4-8 ounces of water, tea, or juice for each 17 gram dose. 0900 (Due) 0915 (Not Given - Provider: Jennifer King RN - Reason: Patient/family refused) 0900 (Due) vitamin tablet 1 tablet 1 tablet, Oral, Daily, First dose on Thu03/06/25 at 0900 0900 (Due) 0915 (Not Given - Provider: Jennifer King RN - Reason: Patient/family refused) 0900 (Due) simethicone (MYLICON) chewable tablet 80 mg 80 mg, Oral, 4 Times Daily, First dose on Thu03/06/25 at 1200 1200 (Due)1800 (Due)2100 (Due) 0916 (Not Given - Provider: Jennifer King RN - Reason: Patient/family refused)1200 (Due)1800 (Due)2100 (Due) 0800 (Due) Continuous Medication Order 03/06/2025 03/07/2025 03/08/2025 lactated ringers infusion (CANCELED) 125 mL/hr, Intravenous, Continuous, Starting on Thu03/06/25 at 0115, For 2 days 0144 (New Bag - Provider: Chelsy Ness RN)0756 (Due: Order Ending - Provider: Aydin Crowe MD - Comment: [Order ends at this time. Document the following action when infusion is complete: Stopped]) oxytocin (PITOCIN) 30 units in 0.9% sodium chloride 500 mL (premix) (CANCELED) 2-20 felix-units/min (2-20 mL/hr), Intravenous, Titrated, Starting on Thu03/06/25 at 0115, Start at 2 felix-units/min and titrate up or down by 2 felix-units every 30 min to a max of 20 felix-units/min. Titrate to maternal/ tolerance, with a goal of achieving an adequate labor pattern defined by progressive cervical effacement and cervical dilation of approximately 0.5 cm/hr to 1 cm/hr once active labor is achieved. Contractions should not be more frequent than every 2 minutes. If tachysystole occurs with either FHR category III or FHR category III develops without tachysystole, stop oxytocin infusion and notify physician. Notify physician for tachysystole regardless of FHR category. If oxytocin has been stopped for less than 30 minutes, FHR is reassuring and no uterine tachysystole present, oxytocin may be restarted at half the rate that caused tachysystole. If oxytocin has been stopped for 30 minutes or longer, oxytocin must be restarted at the initial dose. Group 2 ([place]) Hazardous Drug - Reproductive Risk Only - See Handling Guide 0143 (New Bag - Provider: Chelsy Ness RN)0241 (Rate/Dose Change - Provider: Chelsy Ness RN)0319 (Rate/Dose Change - Provider: Chelsy Ness RN)0435 (Stopped - Provider: Chelsy Ness RN) PRN Medication Order 03/06/2025 03/07/2025 03/08/2025 acetaminophen (TYLENOL) tablet 650 mg 650 mg, Oral, Every 6 Hours PRN, Mild Pain, Second Line: Mild pain unrelieved by ibuprofen. Stagger doses 3 hours after dose of ibuprofen., Starting on Thu03/06/25 at 0756, If given for fever, use fever parameter: fever greater than 100.4 F Based on patient request - if ordered for moderate or severe pain, provider allows for administration of a medication prescribed for a lower pain scale. Do not exceed 4 grams of acetaminophen in a 24 hr period. Max dose of 2gm for AST/ALT greater than 120 units/L. If given for pain, use the following pain scale: Mild Pain = Pain Score of 1-3, CPOT 1-2 Moderate Pain = Pain Score of 4-6, CPOT 3-4 Severe Pain = Pain Score of 7-10, CPOT 5-8 1533 (Given - Provider: Jessica Mcallister RN)2240 (Given - Provider: Aminah Paz RN) 0434 (Given - Provider: Aminah Paz RN)1433 (Given - Provider: Jennifer iKng, RN)2017 (Given - Provider: Reba Mcpherson, SUKUMAR) 0813 (Given - Provider: Jennifer King, SUKUMAR) acetaminophen (TYLENOL) tablet 975 mg (CANCELED) 975 mg, Oral, Every 6 Hours PRN, Mild Pain, Headache, Starting on Thu03/06/25 at 0019, Based on patient request - if ordered for moderate or severe pain, provider allows for administration of a medication prescribed for a lower pain scale. Based on patient request - if ordered for moderate or severe pain, provider allows for administration of a medication prescribed for a lower pain scale. Do not exceed 4 grams of acetaminophen in a 24 hr period. Max dose of 2gm for AST/ALT greater than 120 units/L. If given for pain, use the following pain scale: Mild Pain = Pain Score of 1-3, CPOT 1-2 Moderate Pain = Pain Score of 4-6, CPOT 3-4 Severe Pain = Pain Score of 7-10, CPOT 5-8 0717 (Given - Provider: Gabriel Herron RN) benzocaine (AMERICAINE) 20 % rectal ointment 1 Application 1 Application, Rectal, As Needed, Hemorrhoids, Starting on Thu03/06/25 at 0756, May leave at bedside. (SP) benzocaine-menthol (DERMOPLAST) 20-0.5 % topical spray Topical, As Needed, Mild Pain, perineal pain, Starting on Thu03/06/25 at 0756, May leave at bedside. If given for pain, use the following pain scale: Mild Pain = Pain Score of 1-3, CPOT 1-2 Moderate Pain = Pain Score of 4-6, CPOT 3-4 Severe Pain = Pain Score of 7-10, CPOT 5-8 1119 (Given - Provider: Jessica Mcallister RN) bisacodyl (DULCOLAX) suppository 10 mg 10 mg, Rectal, Daily PRN, Constipation, Starting on Thu03/07/25 at 0000, Begin on day 1 if no BM Hold for diarrhea calcium carbonate (TUMS) chewable tablet 500 mg (200 mg elemental) 1 tablet, Oral, 3 Times Daily PRN, Heartburn, Starting on Thu03/06/25 at 0756, One tablet contains 200 mg elemental calcium. Take with food. carboprost (HEMABATE) injection 250 mcg 250 mcg, Intramuscular, Every 15 Minutes PRN, hemorrhage, Starting on Thu03/06/25 at 0756, For 8 doses, DO NOT administer IV Refrigerate. Use filter needle to withdraw dose. diphenhydrAMINE (BENADRYL) capsule 25 mg 25 mg, Oral, Nightly PRN, Sleep, Starting on Thu03/06/25 at 0756, Caution: Look alike/sound alike drug alert. This med may be ordered in other forms and routes. Before giving verify the last time the drug was given by any route/form. Hydrocortisone (Perianal) (ANUSOL-HC) 2.5 % rectal cream 1 Application 1 Application, Rectal, As Needed, Hemorrhoids, Starting on Thu03/06/25 at 0756, May leave at bedside ibuprofen (ADVIL,MOTRIN) tablet 600 mg 600 mg, Oral, Every 6 Hours PRN, Mild Pain, First Line: Mild pain., Starting on Thu03/06/25 at 0756, Based on patient request - if ordered for moderate or severe pain, provider allows for administration of a medication prescribed for a lower pain scale. Mucous membrane irritant. Do not crush or chew tablet or capsule unless administered through a feeding tube. If given for pain, use the following pain scale: Mild Pain = Pain Score of 1-3, CPOT 1-2 Moderate Pain = Pain Score of 4-6, CPOT 3-4 Severe Pain = Pain Score of 7-10, CPOT 5-8 1130 (Given - Provider: Jessica Mcallister RN)9 (Given - Provider: Aminah Paz RN) 0818 (Given - Provider: Jennifer King RN) 0119 (Given - Provider: Reba Mcpherson RN) lanolin topical 1 Application 1 Application, Topical, Every 1 Hour PRN, Dry Skin, nipple pain, Starting on Thu03/06/25 at 0756, May keep at bedside. magnesium hydroxide (MILK OF MAGNESIA) suspension 10 mL 10 mL, Oral, Daily PRN, Constipation, Starting on Thu03/06/25 at 0756 methylergonovine (METHERGINE) injection 200 mcg 200 mcg, Intramuscular, Once As Needed, hemorrhage, Starting on Thu03/06/25 at 0756, For 1 dose, Group 2 ([place]) Hazardous Drug - Reproductive Risk Only - See Handling Guide miSOPROStol (CYTOTEC) tablet 800 mcg 800 mcg, Rectal, Once As Needed, Hemorrhage, Starting on Thu03/06/25 at 0756, For 1 dose, Group 2 ([place]) Hazardous Drug - Reproductive Risk Only - See Handling Guide ondansetron (ZOFRAN) injection 4 mg(Linked Group 2) 4 mg, Intravenous, Every 6 Hours PRN, Nausea, Vomiting, Starting on Thu03/06/25 at 0756, If BOTH ondansetron (ZOFRAN) and promethazine (PHENERGAN) are ordered use ondansetron first and THEN promethazine IF ondansetron is ineffective. ondansetron (ZOFRAN) injection 4 mg(Linked Group 3) 4 mg, Intravenous, Every 6 Hours PRN, Nausea, Vomiting, Starting on Thu03/06/25 at 0756, If BOTH ondansetron (ZOFRAN) and promethazine (PHENERGAN) are ordered use ondansetron first and THEN promethazine IF ondansetron is ineffective. ondansetron ODT (ZOFRAN-ODT) disintegrating tablet 4 mg(Linked Group 2) 4 mg, Oral, Every 6 Hours PRN, Nausea, Vomiting, Starting on Thu03/06/25 at 0756, If BOTH ondansetron (ZOFRAN) and promethazine (PHENERGAN) are ordered use ondansetron first and THEN promethazine IF ondansetron is ineffective. Place on tongue and allow to dissolve. ondansetron ODT (ZOFRAN-ODT) disintegrating tablet 4 mg(Linked Group 3) 4 mg, Oral, Every 6 Hours PRN, Nausea, Vomiting, Starting on Thu03/06/25 at 0756, If BOTH ondansetron (ZOFRAN) and promethazine (PHENERGAN) are ordered use ondansetron first and THEN promethazine IF ondansetron is ineffective. Place on tongue and allow to dissolve. oxyCODONE (ROXICODONE) immediate release tablet 10 mg(Linked Group 4) 10 mg, Oral, Every 4 Hours PRN, Severe Pain, Starting on Thu03/06/25 at 0756, For 5 days, Based on patient request - if ordered for moderate or severe pain, provider allows for administration of a medication prescribed for a lower pain scale. If given for pain, use the following pain scale: Mild Pain = Pain Score of 1-3, CPOT 1-2 Moderate Pain = Pain Score of 4-6, CPOT 3-4 Severe Pain = Pain Score of 7-10, CPOT 5-8 oxyCODONE (ROXICODONE) immediate release tablet 5 mg(Linked Group 4) 5 mg, Oral, Every 4 Hours PRN, Moderate Pain, Starting on Thu03/06/25 at 0756, For 5 days, Based on patient request - if ordered for moderate or severe pain, provider allows for administration of a medication prescribed for a lower pain scale. (RANJANA) If given for pain, use the following pain scale: Mild Pain = Pain Score of 1-3, CPOT 1-2 Moderate Pain = Pain Score of 4-6, CPOT 3-4 Severe Pain = Pain Score of 7-10, CPOT 5-8 oxytocin (PITOCIN) 30 units in 0.9% sodium chloride 500 mL (premix) 125 mL/hr, Intravenous, Continuous PRN, PRN Bleeding for 1 Bag, Starting on Thu03/06/25 at 0756, Consider 2nd agent prophylactically. Only order if patient is at high risk of bleeding and will need an additional bag (2 total). Group 2 ([place]) Hazardous Drug - Reproductive Risk Only - See Handling Guide sodium chloride 0.9 % flush 1-10 mL 1-10 mL, Intravenous, As Needed, Line Care, Starting on Thu03/06/25 at 0756 witch rodríguez-glycerin (TUCKS) pad 1 Pad 1 Pad (1 each), Topical, As Needed, Irritation, Hemorrhoids, Starting on Thu03/06/25 at 0756, May leave at bedside. 1119 (Given - Provider: Jessica Mcallister RN) Linked Groups Order Group 1: oxytocin (PITOCIN) 30 units in 0.9% sodium chloride 500 mL (premix)Jump to med 999 mL/hr, Intravenous, Once, On Thu03/06/25 at 0845, For 1 dose, Infuse 250 ml at 999 ml/hr. If patient has a previous bag with remaining volume, please use remainder of that bag to avoid waste. Group 2 ([place]) Hazardous Drug - Reproductive Risk Only - See Handling Guide Followed by oxytocin (PITOCIN) 30 units in 0.9% sodium chloride 500 mL (premix) () 250 mL/hr, Intravenous, Continuous, Starting on Thu03/06/25 at 0900, For 1 hour, Infuse at 250 ml/hr for remaining volume in bag. Group 2 ([place]) Hazardous Drug - Reproductive Risk Only - See Handling Guide Group 2: ondansetron ODT (ZOFRAN-ODT) disintegrating tablet 4 mgJump to med 4 mg, Oral, Every 6 Hours PRN, Nausea, Vomiting, Starting on Thu03/06/25 at 0756, If BOTH ondansetron (ZOFRAN) and promethazine (PHENERGAN) are ordered use ondansetron first and THEN promethazine IF ondansetron is ineffective. Place on tongue and allow to dissolve. Or ondansetron (ZOFRAN) injection 4 mgJump to med 4 mg, Intravenous, Every 6 Hours PRN, Nausea, Vomiting, Starting on Thu03/06/25 at 0756, If BOTH ondansetron (ZOFRAN) and promethazine (PHENERGAN) are ordered use ondansetron first and THEN promethazine IF ondansetron is ineffective. Group 3: ondansetron ODT (ZOFRAN-ODT) disintegrating tablet 4 mgJump to med 4 mg, Oral, Every 6 Hours PRN, Nausea, Vomiting, Starting on Thu03/06/25 at 0756, If BOTH ondansetron (ZOFRAN) and promethazine (PHENERGAN) are ordered use ondansetron first and THEN promethazine IF ondansetron is ineffective. Place on tongue and allow to dissolve. Or ondansetron (ZOFRAN) injection 4 mgJump to med 4 mg, Intravenous, Every 6 Hours PRN, Nausea, Vomiting, Starting on Thu03/06/25 at 0756, If BOTH ondansetron (ZOFRAN) and promethazine (PHENERGAN) are ordered use ondansetron first and THEN promethazine IF ondansetron is ineffective. Group 4: oxyCODONE (ROXICODONE) immediate release tablet 5 mgJump to med 5 mg, Oral, Every 4 Hours PRN, Moderate Pain, Starting on Thu03/06/25 at 0756, For 5 days, Based on patient request - if ordered for moderate or severe pain, provider allows for administration of a medication prescribed for a lower pain scale. (RANJANA) If given for pain, use the following pain scale: Mild Pain = Pain Score of 1-3, CPOT 1-2 Moderate Pain = Pain Score of 4-6, CPOT 3-4 Severe Pain = Pain Score of 7-10, CPOT 5-8 Or oxyCODONE (ROXICODONE) immediate release tablet 10 mgJump to med 10 mg, Oral, Every 4 Hours PRN, Severe Pain, Starting on Thu03/06/25 at 0756, For 5 days, Based on patient request - if ordered for moderate or severe pain, provider allows for administration of a medication prescribed for a lower pain scale. If given for pain, use the following pain scale: Mild Pain = Pain Score of 1-3, CPOT 1-2 Moderate Pain = Pain Score of 4-6, CPOT 3-4 Severe Pain = Pain Score of 7-10, CPOT 5-8 documented in this encounter Care Teams [employer] Work[employer] Relationship Specialty Start Date End Date Jefe Schwartz MD [address] [facility] [address] [place] [id number] PCP - General Adolescent Medicine 12/14/23 documented as of this encounter
--- OUTSIDE RECORDS SUMMARY | 2025-03-06 05:06 | XMS_ITS | Encounter Summary ---
Author Organization [facility] Address [address] [place] [id number] Care Team Providers Care Reference Archivist Name Role Phone Jefe Schwartz MD Primary Care Provider [phone] Reason for Visit * Auth/Cert (Routine) Specialty Diagnoses / Procedures Referred By Contac t Referred To Contact Diagnoses Chronic hypertension in obstetric context, third trimester Referral ID Status Reason Start Date Expiration Date Visits Re quested Visits Authorized [id number] 1 1 Encounter Details Date Type Department Care Team (Late st Contact Info) Description 03/06/2025 5:06 AM EDT Anesthesia Event [facility] LABOR DELIVERY [address] [facility] [place] [phone] Mami Balbuena MD 47[address] [facility] [address] [place] [address] Anesthesia Record Procedure Summary Procedure Name Responsible [...] drink = 0.6 oz pur e alcohol) [facility] Utilities Answer Date Recorded In the past 12 months has [employer], gas, oil, or water [employer] threatened to shut off services in your [...] and heating? Not hard at all 03/06/2025 [facility] [place] of Occupat ional Health - Occupational Stress [...] things needed for daily living? No 03/06/2025 [place] Depression Scale Answer Date Recorded [place] Depression Scale Total 8 03/06/2025 The thought [...] GED or equivalent No 03/06/2025 Preferred Language Somali 03/06/2025 PHQ-2 Answer Date Recorded Patient Health [...] 03/06/2025 12:42 AM Chelsy Chan RN * [place] Suicide Severity Rating Scale (Screener/Recent Self-Report) Question [...] evaluation and timeout performed Prep: Pt Position:sitting Mercury Recoverer:cap, gloves, sterile barrier, mask and gown Prep:chlorhexidine [...] sounds: normal. 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 ROS ROS/Med Hx [...] Visit [facility] O[facility]YN 17[address] [facility] [address] [place] [phone] Aydin Crowe MD 1700 [facility] [address] [place] [address] documented as of this encounter Procedures Procedure [...] evaluation and timeout performed Prep: Pt Position:sitting Mercury Recoverer:cap, gloves, sterile barrier, mask and gown Prep:chlorhexidine [...] Rate Site Lidocaine-EPINEPHrine (PF) (XYLOCAINE W/EPI) 1.5 %-1:961789 injection Epidural, As Needed, Starting on Thu03/06/25 at 0519 Given 03/06/2025 5:19 AM EDT 3 mL ropivacaine (NAROPIN) 0.5 % 5 mL in sodium chloride 0.9 % 5 mL epidural Epidural, Continuous PRN, Starting on Thu03/06/25 at 0523 Bolus 03/06/2025 5:25 AM EDT 5 mL New Bag 03/06/2025 5:23 AM EDT 5 mL documented in this encounter Care Teams Reference Archivist Relationship Specialty Start Date End Date Jefe Schwartz MD 1210 [facility] [address] [facility] [address] [place] [address] PCP - General Adolescent Medicine 12/14/23 documented as of this encounter
--- OUTSIDE RECORDS SUMMARY | 2025-04-07 11:15 | XMS_ITS | Clinical Summary ---
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
--- OUTSIDE RECORDS SUMMARY | 2025-04-07 11:15 | XMS_ITS | Encounter Summary ---
[facility] Organization [facility] Address [address] [place] [address] Care Team Providers Care Parts Remover Name Role Phone Jefe Schwartz MD Primary Care Provider [phone] Encounter Details Date Type Department Care Team (Late st Contact Info) Description 12/15/2024 Results Follow-Up [facility] OBGYN 1700 [facility] [address] [place] [phone] Izaiah Mcdaniels MD 1700 [facility] [address] [place] [address] Social History Tobacco Use Types Packs/Day Years Used Date Smoking Tobacco: Former Cigarettes Q uit: 01/2024 Smokeless Tobacco: Never Comments:Vape. Alcohol Use Standard Drinks/Week Comments Never 0 (1 standard drink = 0.6 oz pur e alcohol) [facility] Utilities Answer Date Recorded In the past 12 months has [employer], gas, oil, or water [employer] threatened to shut off services in your [...] and heating? Not hard at all 12/12/2023 [facility] - Occupational Stress Questionnaire Answer [...] things needed for daily living? No 12/12/2023 [place] Depression Scale Answer Date Recorded Retired [place] Depression Score 11 02/23/2024 Retired EPD Scale: [...] GED or equivalent No 12/12/2023 Preferred Language Slovak 12/12/2023 PHQ-2 Answer Date Recorded Retired PHQ-9: [...] 04/17/2025 1:40 PM EDT Visit [facility] OBGYN [address] [place] [address] Aydin Crowe MD [address] [place] [address] documented as of this encounter Visit Diagnoses Not on filedocumented in this encounter Care Teams Parts Remover Relationship Specialty Start Date End Date Jefe Schwartz MD [address] [place] [facility] [address] [place] [address] PCP - General Adolescent Medicine 12/14/23 documented as of this encounter
--- OUTSIDE RECORDS SUMMARY | 2025-04-07 11:15 | XMS_ITS | Referral Summary ---
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
--- OUTSIDE RECORDS SUMMARY | 2025-04-07 11:16 | XMS_ITS | Encounter Summary ---
[facility] Organization [facility] Address [address] [place] [address] Care Team Providers Care Manager Shift Name Role Phone Jefe Schwartz MD Primary Care Provider [phone] Encounter Details Date Type Department Care Team (Late st Contact Info) Description 02/07/2025 Results Follow-Up [facility] OBGYN 1700 [facility] [address] [place] [phone] Aydin Crowe MD 1700 [facility] [address] [place] [address] Social History Tobacco Use Types Packs/Day Years Used Date Smoking Tobacco: Former Cigarettes Q uit: 01/2024 Smokeless Tobacco: Never Comments:Vape. Alcohol Use Standard Drinks/Week Comments Never 0 (1 standard drink = 0.6 oz pur e alcohol) [facility] Utilities Answer Date Recorded In the past 12 months has [employer], gas, oil, or water [employer] threatened to shut off services in your [...] and heating? Not hard at all 01/23/2025 [facility] - Occupational Stress Questionnaire [...] things needed for daily living? No 01/23/2025 [place] Depression Scale Answer Date Recorded Retired [place] Depression Score 11 02/23/2024 Retired EPD Scale: [...] GED or equivalent No 01/23/2025 Preferred Language Kittitian 01/23/2025 PHQ-2 Answer Date Recorded Patient Health [...] Info) Description 04/17/2025 1:40 PM EDT Visit [facility] OBGYN [address] [phone] Aydin Crowe MD [address] [address] documented as of this encounter Visit Diagnoses Not on filedocumented in this encounter Care Teams Manager Shift Relationship Specialty Start Date End Date Jefe Schwartz MD 1210 [facility] [address] [place] [address] PCP - General Adolescent Medicine 12/14/23 documented as of this encounter
--- OUTSIDE RECORDS SUMMARY | 2025-04-07 11:16 | XMS_ITS | Encounter Summary ---
Author Organization [employer] ([place], [place], [place], [place]) Address [address] [place] [address] Care Team Providers Care Wool Fleece Grader Name Role Phone Unavailable Primary Care Provider Unavailabl e Encounter Details Date Type Department Care Team (Late st Contact Info) Description 10/15/2018 Transcribed Document [facility] Family Medicine [address] [place] [address] ProviderFeroz MD [facility] [place], [place] [id number] Social History Tobacco Use Types Packs/Day Years [...] - Feroz ProviderMD - 10/15/2018 10:25 AM TEST AUTOMATION ARCHITECT DATE OF STUDY: 10/15/2018 ELECTROPHYSIOLOGY REPORT PREOPERATIVE DIAGNOSIS: Oyceh-Zarjclbbr-Rbfwg with recurrent symptomatic tachycardia. PROCEDURE PERFORMED: Comprehensive [...] infiltrated 1% with 1% lidocaine locally. Two 6-Trinidadian and two 7-Trinidadian sheaths were placed in the left femoral vein. A 5-Trinidadian sheath was placed in the left femoral artery. A 5-Trinidadian pigtail catheter was placed to level aortic valve plane for continuous arterial pressure monitoring to assist with transseptal cardiac catheterization. A 7-Trinidadian Decapolar catheter was placed in the coronary sinus. A 6-Trinidadian Quadripolar catheters were placed to high right [...] through the right femoral vein, a long 9-Trinidadian sheath and 11-Trinidadian sheath were introduced. A Bios[employer] Rosas intracardiac [...] was measured and recorded. Next, using a [employer] Changs Rosas STF Curve irrigated ablation catheter in [...] M.D. Electronically signed by Prema Avendaño Conversion Motor Vehicle Or Caravan Salesperson Rebeccaner at 11/25/2022 5:08 PM CDT documented in this encounter Plan of Treatment Not on file documented as of this encounter Visit Diagnoses Not on filedocumented in this encounter
--- OUTSIDE RECORDS SUMMARY | 2025-04-07 11:16 | XMS_ITS | Encounter Summary ---
Author Organization [employer] ([place], [place], [place], [place]) Address [address] [place] [address] Care Team Providers Care Dementia Program Director Name Role Phone Unavailable Primary Care Provider Unavailabl e Encounter Details Date Type Department Care Team (Late st Contact Info) Description 10/15/2018 Transcribed Document [facility] [place] [address] [place] [address] ProviderFeroz MD [address] [place], [place] [address] Social History Tobacco Use Types Packs/Day Years [...] - Feroz ProviderMD - 10/15/2018 4:44 PM GUSSET EDGER Discharge Instructions Entered On: 10/15/2018 16:45 EST [...] 10/15/2018 16:47 EST Electronically signed by Kateryna, [facility] Conversion Print Line Inspector Cerner at 11/25/2022 5:17 PM CDT documented in this encounter Plan of Treatment Not on file documented as of this encounter Visit Diagnoses Not on filedocumented in this encounter
--- OUTSIDE RECORDS SUMMARY | 2025-04-07 11:16 | XMS_ITS | Encounter Summary ---
[facility] Address [address] [place] [address] Care Team Providers Care Sole Assessor Name Role Phone Jefe Schwartz MD Primary Care Provider [phone] Encounter Details Date Type Department Care Team (Late st Contact Info) Description 12/26/2024 Results Follow-Up [facility] OBGYN 1700 [facility] [address] [place] [phone] Kelly Patricia, STAIN REMOVER 1700 [facility] [address] [place] [address] Social History Tobacco Use Types Packs/Day Years Used Date Smoking Tobacco: Former Cigarettes Q uit: 01/2024 Smokeless Tobacco: Never Comments:Vape. Alcohol Use Standard Drinks/Week Comments Never 0 (1 standard drink = 0.6 oz pur e alcohol) [facility] Utilities Answer Date Recorded In the past 12 months has [employer], gas, oil, or water [employer] threatened to shut off services in your [...] heating? Not hard at all 12/30/2024 [facility] - Occupational Stress Questionnaire Answer Date [...] things needed for daily living? No 12/30/2024 [place] Depression Scale Answer Date Recorded Retired [place] Depression Score 11 02/23/2024 Retired EPD Scale: [...] GED or equivalent No 12/30/2024 Preferred Language Citizen Of [place] 12/30/2024 PHQ-2 Answer Date Recorded Patient Health [...] Info) Description 04/17/2025 1:40 PM EDT Visit [facility] OBGYN 1700 [facility] [address] [place] [address] Aydin Crowe MD 1700 [facility] [address] [place] [address] documented as of this encounter Visit Diagnoses Not on filedocumented in this encounter Care Teams Sole Assessor Relationship Specialty Start Date End Date Jefe Schwartz MD 1210 [facility] [address] [place] [address] PCP - General Adolescent Medicine 12/14/23 documented as of this encounter
--- OUTSIDE RECORDS SUMMARY | 2025-04-07 11:16 | XMS_ITS | Encounter Summary ---
Author Organization [employer] ([place], [place], [place], [place]) Address [address] [place] [address] Care Team Providers Care Programmer Name Role Phone Unavailable Primary Care Provider Unavailabl e Encounter Details Date Type Department Care Team (Late st Contact Info) Description 10/15/2018 Transcribed Document [facility] [place] [address] [place] [address] ProviderFeroz MD [address] [place], [place] [address] Social History Tobacco Use Types Packs/Day Years [...] - Feroz ProviderMD - 10/15/2018 4:42 PM WELDER/FABRICATOR Nursing Discharge Summary Entered On: 10/15/2018 16:43 EST Performed On: 10/15/2018 16:42 EST by RYAN QUINTERO professional golf tournament player Documentation Patient Disposition, General : Discharge Discharge To : Home with ambulatory/outpatient follow-up Mode Of Departure, General Discharge : Private vehicle Accompanied By, Discharge : Grandparent IV Discontinued : Yes Personal Belongings With Patient : Yes Teaching Method : Demonstration, Explanation Teaching Evaluation : Returns demonstration, Verbalizes understanding RYAN QUINTERO RN - 10/15/2018 16:42 EST Electronically signed by Kateryna [facility] Conversion Machine Cell Tuber Cerner at 11/25/2022 5:03 PM CDT documented in this encounter Plan of Treatment Not on file documented as of this encounter Visit Diagnoses Not on filedocumented in this encounter
--- OUTSIDE RECORDS SUMMARY | 2025-04-07 11:16 | XMS_ITS | Encounter Summary ---
Author Organization [facility] Address [address] [place] [address] Care Team Providers Care Nuclear Spectroscopist Name Role Phone Jefe Schwartz MD Primary Care Provider [phone] Encounter Details Date Type Department Care Team (Latest Contact Info) Description 02/06/2025 Travel Social History Tobacco Use Types Packs/Day Years Used Date Smoking Tobacco: Former Cigarettes Q uit: 01/2024 Smokeless Tobacco: Never Comments:Vape. Alcohol Use Standard Drinks/Week Comments Never 0 (1 standard drink = 0.6 oz pur e alcohol) [facility] Utilities Answer Date Recorded In the past 12 months has [employer] electric, gas, oil, or water company threatened [...] and heating? Not hard at all 01/23/2025 [facility] of Occupat ional Health [...] things needed for daily living? No 01/23/2025 [place] Depression Scale Answer Date Recorded Retired [place] Depression Score 11 02/23/2024 Retired EPD Scale: [...] GED or equivalent No 01/23/2025 Preferred Language Belgian 01/23/2025 PHQ-2 Answer Date Recorded Patient Health [...] EDT Visit [facility] OBGYN 1700 [facility] [address] [place] [address] Aydin Crowe MD 1700 [facility] [address] [place] [address] documented as of this encounter Visit Diagnoses Not on filedocumented in this encounter Care Teams Nuclear Spectroscopist Relationship Specialty Start Date End Date Jefe Schwartz MD 1210 [facility] [address] [place] [address] PCP - General Adolescent Medicine 12/14/23 documented as of this encounter
--- OUTSIDE RECORDS SUMMARY | 2025-04-07 11:16 | XMS_ITS | Encounter Summary ---
[facility] Address [address] [place] [address] Care Team Providers Care Assembler Dc Field Ring Name Role Phone Jefe Schwartz MD Primary Care Provider [phone] Encounter Details Date Type Department Care Team (Late st Contact Info) Description 12/26/2024 Results Follow-Up [facility] OBGYN 1700 [facility] [address] [place] [phone] Kelly Patricia, GLUE BONE DRIER 17[address] [facility] [address] [place] [address] Social History Tobacco Use Types Packs/Day Years Used Date Smoking Tobacco: Former Cigarettes Q uit: 01/2024 Smokeless Tobacco: Never Comments:Vape. Alcohol Use Standard Drinks/Week Comments Never 0 (1 standard drink = 0.6 oz pur e alcohol) [facility] Utilities Answer Date Recorded In the past 12 months has [employer], gas, oil, or water [employer] threatened to shut off services in your [...] and heating? Not hard at all 12/30/2024 [facility] - Occupational Stress Questionnaire Answer [...] things needed for daily living? No 12/30/2024 [place] Depression Scale Answer Date Recorded Retired [place] Depression Score 11 02/23/2024 Retired EPD Scale: [...] GED or equivalent No 12/30/2024 Preferred Language Nicaraguan 12/30/2024 PHQ-2 Answer Date Recorded Patient Health [...] Info) Description 04/17/2025 1:40 PM EDT Visit [facility] OBGYN 1700 [facility] [address] [place] [address] Aydin Crowe MD 1700 [facility] [address] [place] [address] documented as of this encounter Visit Diagnoses Not on filedocumented in this encounter Care Teams Assembler Dc Field Ring Relationship Specialty Start Date End Date Jefe Schwartz MD 1210 [facility] [address] [place] [address] PCP - General Adolescent Medicine 12/14/23 documented as of this encounter
--- OUTSIDE RECORDS SUMMARY | 2025-04-07 11:16 | XMS_ITS | Encounter Summary ---
Author Organization [employer] ([place], [place], [place], [place]) Address [address] [place] [address] Care Team Providers Care Pararescue Manager Name Role Phone Unavailable Primary Care Provider Unavailabl e Encounter Details Date Type Department Care Team (Late st Contact Info) Description 10/15/2018 Transcribed Document [facility] Family Medicine [address] [place] [address] ProviderFeroz MD [facility] [place], [place] [address] Social History Tobacco Use Types Packs/Day Years [...] - Feroz ProviderMD - 10/15/2018 4:49 PM JOWL TRIMMER Patient Education Materials Follows: Groin Site Care [...] Document Reviewed: 08/29/2011 ExitCare? Patient Information ?2014 [employer]. Pharmacology Moderate Conscious Sedation, Adult, Care After [...] you are awake and alert. ??? Take mjjq-tgc-ynefthz and prescription medicines only as told by [...] 05/17/2014 Document Revised: 12/29/2016 Document Reviewed: 11/15/2016 [employer] Interactive Patient Education ? 2017 [employer] Procedures Cardiac Ablation Cardiac ablation is a procedure to stop some heart tissue from causing problems. The heart has many electrical connections. Sometimes these connections cause the heart to beat very fast or irregularly. Removing some of the problem areas can improve heart rhythm or make it normal. Ablation is done for people who: ??? Have Ulvoi-Ldiquhwxj-Ttklm syndrome. ??? Have other fast heart rhythms [...] 12/22/2013 [employer] Interactive Patient Education ? 2017 [employer] Electronically signed by Prema Avendaño Conversion Research Worker Encyclopedia Cerner at 11/25/2022 5:25 PM CDT documented in this encounter Plan of Treatment Not on file documented as of this encounter Visit Diagnoses Not on filedocumented in this encounter
--- OUTSIDE RECORDS SUMMARY | 2025-04-07 11:16 | XMS_ITS | Encounter Summary ---
Author Organization [employer] ([place], [place], [place], [place]) Address [address] [place] [address] Care Team Providers Care Rn Medication Name Role Phone Unavailable Primary Care Provider Unavailabl e Encounter Details Date Type Department Care Team (Late st Contact Info) Description 10/15/2018 Transcribed Document [facility] Family Medicine [address] [place] [address] ProviderFeroz MD [address] [place] [address] Social History Tobacco Use Types Packs/Day [...] Feroz Richter MD - 10/15/2018 4:48 PM SELF SEALING FUEL TANK REPAIRER [address] , [place] [address] Patient Copy Patient Information: Name: SARBJIT RILEY Current Date: 10/15/2018 16:48:56 : 2000 Patient Address: [place] [address] Patient Attending Physician: Primary Care Provider: SHANI LUDWIG MD Primary Care Provider Discharge Diagnosis: Weight on Admission: 228 lb, 0 oz Comment: Follow-up Instructions: With: Address: When: BELA MARQUES [address] [place] [address] Business (1) Within 2 weeks [...] Document Reviewed: 08/29/2011 ExitCare? Patient Information ?2014 [employer]. Moderate Conscious Sedation, Adult, Care After These [...] you are awake and alert. ??? Take utmx-hyj-gnfmqlf and prescription medicines only as told by [...] 11/15/2016 Elsevier Interactive Patient Education ? 2017 [employer] Cardiac Ablation Cardiac ablation is a procedure to stop some heart tissue from causing problems. The heart has many electrical connections. Sometimes these connections cause the heart to beat very fast or irregularly. Removing some of the problem areas can improve heart rhythm or make it normal. Ablation is done for people who: ??? Have Lbtsl-Ufmxhsgox-Hijxm syndrome. ??? Have other fast heart rhythms [...] 12/22/2013 Elsevier Interactive Patient Education ? 2017 [employer] CIGARETTE SMOKING: The facts are clear, cigarette smoking will shorten your life. Smoking can cause many illnesses along the way. As a healthcare provider, we recommend that you stop smoking. Assistance with quitting is available by contacting 6-759-MRNV-NOW. This is a free resource providing counseling, [...] Be sure to sign up for the End[employer] patient portal, which gives you 02/03 access to your medical information ??? including these discharge instructions ??? using your computer, smartphone, or tablet. Just go to [employer] to get started. Questions? Call . [facility] would like to thank you for allowing us to assist you with your healthcare needs. I, OSVALDO, SARBJIT DARYL AVTAR, (or appliance service representative) have received the above patient education materials/instructions and have verbalized understanding: Patient Signature _ Date/Time Patient Mobile Phlebotomist Signature (if needed) Date/Time Clinician/Hospital Mobile Phlebotomist Signature (if needed) Date/Time Electronically signed by Prema Avendaño Conversion Home Care Physical Therapist Hitesh at 11/25/2022 5:20 PM CDT documented in this encounter Plan of Treatment Not on file documented as of this encounter Visit Diagnoses Not on filedocumented in this encounter
--- OUTSIDE RECORDS SUMMARY | 2025-04-07 11:16 | XMS_ITS | Encounter Summary ---
Author Organization [employer] ([place], [place], [place], [place]) Address [address] [place] [address] Care Team Providers Care Route Service Manager Name Role Phone Unavailable Primary Care Provider Unavailabl e Encounter Details Date Type Department Care Team (Late st Contact Info) Description 10/15/2018 Transcribed Document [facility] [address] [place] [address] ProviderFeroz MD [address], [place] [id number] Social History Tobacco Use Types Packs/Day Years [...] - Historical ProviderMD - 10/15/2018 2:25 PM RESOLUTION EXPERT Event Note Entered On: 10/15/2018 14:25 EST Performed On: 10/15/2018 14:25 EST by DILMA WHELAN RN Event Note Event Location : Other: 1425 - right and left sheath sites wnl. trace drainage on dressing. assessed per Dr fuentes-wnl. DILMA WHELAN, RN - 10/15/2018 14:25 EST documented in this encounter Plan of Treatment Not on file documented as of this encounter Visit Diagnoses Not on filedocumented in this encounter
--- OUTSIDE RECORDS SUMMARY | 2025-04-07 11:16 | XMS_ITS | Encounter Summary ---
Author Organization [facility] Address [address] [place] [address] Care Team Providers Care Block Hand Name Role Phone Jefe Schwartz MD Primary Care Provider [phone] Encounter Details Date Type Department Care Team (Latest Contact Info) Description 02/09/2025 Travel Social History Tobacco Use Types Packs/Day Years Used Date Smoking Tobacco: Former Cigarettes Q uit: 01/2024 Smokeless Tobacco: Never Comments:Vape. Alcohol Use Standard Drinks/Week Comments Never 0 (1 standard drink = 0.6 oz pur e alcohol) [facility] Utilities Answer Date Recorded In the past 12 months has [employer] electric, gas, oil, or water company threatened [...] and heating? Not hard at all 01/23/2025 [facility] [place] [facility] Occupat ional [facility] - Occupational Stress [...] things needed for daily living? No 01/23/2025 [place] Depression Scale Answer Date Recorded Retired [place] Depression Score 11 02/23/2024 Retired EPD Scale: [...] GED or equivalent No 01/23/2025 Preferred Language Russian 01/23/2025 PHQ-2 Answer Date Recorded Patient Health [...] Visit [facility] [address] [facility] [address] [place] [address] Aydin Crowe MD [address] [facility] [address] [place] [address] documented as of this encounter Visit Diagnoses Not on filedocumented in this encounter Care Teams Block Hand Relationship Specialty Start Date End Date Jefe Schwartz MD [address] [facility] [address] [place] [address] PCP - General Adolescent Medicine 12/14/23 documented as of this encounter
--- OUTSIDE RECORDS SUMMARY | 2025-04-07 11:16 | XMS_ITS | Encounter Summary ---
Author Organization [employer] ([place], [place], [place], [place]) Address [address] [place] [address] Care Team Providers Care Manager Farm Name Role Phone Unavailable Primary Care Provider Unavailabl e Encounter Details Date Type Department Care Team (Late st Contact Info) Description 10/15/2018 Transcribed Document [facility] [place] Family Medicine [address] [place] [address] ProviderFeroz MD [address], [place] [address] Social History Tobacco Use Types Packs/Day Years [...] - Historical ProviderMD - 10/15/2018 7:45 AM APPLICATION SUPPORT LEAD Event Note Entered On: 10/15/2018 7:46 EST [...]
--- OUTSIDE RECORDS SUMMARY | 2025-04-07 11:16 | XMS_ITS | Encounter Summary ---
Author Organization [employer] ([place], [place], [place], [place]) Address [address] [place] [address] Care Team Providers Care Wellness Nurse Rn Name Role Phone Unavailable Primary Care Provider Unavailabl e Encounter Details Date Type Department Care Team (Late st Contact Info) Description 10/15/2018 Transcribed Document [facility] [place] [place] Family Medicine [address] [place] [address] ProviderFeroz MD [address] [place] [address] Social History Tobacco Use Types Packs/Day [...] Feroz Richter MD - 10/15/2018 4:46 PM LINSEED OIL BOILER [address] , [place] [address] Patient Copy Patient Information: Name: SARBJIT RILEY Current Date: 10/15/2018 16:46:09 : 2000 Patient Address: [place] [address] Patient Attending Physician: Primary Care Provider: SHANI LUDWIG MD Primary Care Provider Discharge Diagnosis: Weight on Admission: 228 lb, 0 oz Comment: Follow-up Instructions: With: Address: When: BELA MARQUES [address] [place] [address] Business (1) Within 2 weeks [...] Document Reviewed: 08/29/2011 ExitCare? Patient Information ?2014 [employer]. Moderate Conscious Sedation, Adult, Care After These [...] you are awake and alert. ??? Take wdxs-lqv-rugaepq and prescription medicines only as told by [...] 05/17/2014 Document Revised: 12/29/2016 Document Reviewed: 11/15/2016 [employer]etti Interactive Patient Education ? 2017 [employer] Cardiac Ablation Cardiac ablation is a procedure to stop some heart tissue from causing problems. The heart has many electrical connections. Sometimes these connections cause the heart to beat very fast or irregularly. Removing some of the problem areas can improve heart rhythm or make it normal. Ablation is done for people who: ??? Have Edlrc-Lgmuxchsn-Lckey syndrome. ??? Have other fast heart rhythms [...] 03/29/2014 Document Revised: 01/01/2017 Document Reviewed: 12/22/2013 [employer] Interactive Patient Education ? 2017 [employer] CIGARETTE SMOKING: The facts are clear, cigarette smoking will shorten your life. Smoking can cause many illnesses along the way. As a healthcare provider, we recommend that you stop smoking. Assistance with quitting is available by contacting 8-887-XAYH-NOW. This is a free resource providing counseling, [...] Be sure to sign up for the [employer] patient portal, which gives you 02/03 access to your medical information ??? including these discharge instructions ??? using your computer, smartphone, or tablet. Just go to [employer] to get started. Questions? Call . [facility] would like to thank you for allowing us to assist you with your healthcare needs. OSVALDO Nunes MADISON EVELYN ROSE, (or international account representative) have received the above patient education materials/instructions and have verbalized understanding: Patient Signature _ Date/Time Patient Motor Tune Up Specialist Signature (if needed) Date/Time Clinician/Hospital Motor Tune Up Specialist Signature (if needed) Date/Time Electronically signed by [facility] Conversion Community Associate Hitesh at 11/25/2022 5:12 PM CDT documented in this encounter Plan of Treatment Not on file documented as of this encounter Visit Diagnoses Not on filedocumented in this encounter
--- OUTSIDE RECORDS SUMMARY | 2025-04-07 11:16 | XMS_ITS | Encounter Summary ---
Author Organization [employer] ([place], [place], [place], [place]) Address [address] [place] [address] Care Team Providers Care Board Of Directors Name Role Phone Unavailable Primary Care Provider Unavailabl e Encounter Details Date Type Department Care Team (Late st Contact Info) Description 10/15/2018 Transcribed Document [facility] [place] Medicine [address] [place] [address] ProviderFeroz MD [address] [place] [place], [place] [address] Social History Tobacco Use Types Packs/Day Years [...] - Feroz ProviderMD - 10/15/2018 7:32 AM REMEDIATION TECHNICIAN Pre Procedure Adult Entered On: 10/15/2018 7:38 EST Performed On: 10/15/2018 7:32 EST by DILMA WHELAN RN Height and Weight, Clinical Dosing Height Source : Stated Height Entry Format : [place] Height, Feet : 0 ft(Converted to: 0 cm, 0 Inch) Height, Inches : 65 Inch(Converted to: 5 ft 5 Inch, 165.10 cm) Clinical Height : 165.1 cm Weight Source : Standing scale Weight Entry Format : [place] Clinical Dosing Weight : 103.64 kg Weight, Pounds : 228 lb Body Surface Area (BSA) : 2.09 m2 Body Mass Index : 38 kg/m2 (HI) [place] Body Weight : 57 kg DILMA WHELAN [...] Region : No Tuberculosis Symptoms : None IDLMA WHELAN RN - 10/15/2018 7:32 EST Anesthesia/Transfusion [...] Emergency Contact #1 : Aravind kohler - [phone] Emergency Contact #1 Phone Number : - Emergency Contact #1 Relationship : - Emergency Contact #2 : - Emergency Contact #2 Phone Number : - Emergency Contact #2 Relationship : - Primary Language : Nigerien Communication Barrier : None DILMA WHELAN RN [...] Scale Risk Level : 0-24 Low Risk Henderson Fall Interventions : Wheels locked DILMA WHELAN [...] the text rendition version of the form. documented in this encounter Plan of Treatment Not on file documented as of this encounter Visit Diagnoses Not on filedocumented in this encounter
--- OUTSIDE RECORDS SUMMARY | 2025-04-07 11:17 | XMS_ITS | Clinical Summary ---
Author Organization [facility] Address [address] [place] [id number] Care Team Providers Care Crm Marketing Executive Name Role Phone Jefe Schwartz MD Primary Care Provider [phone] Allergies Active Allergy Reactions Criticality Noted Date Comments Fentanyl Mental Status Change Low 10/26/2023 Pt gets mean broke 4 restraints and aggressive towards staff Medications vitamins (PRENATABS RX) 29-1 MG tablet tablet Take 1 tablet by mouth Daily. 30 tablet 11 07/25/2024 Active Ferric Maltol (ACCRUFeR) 30 MG capsule Take 1 capsule by mouth 2 (Two) Times a Day. Take on an empty stomach. 60 capsule 9 01/18/2025 Active Active Problems Problem Noted Date Diagnosed [...] weeks. labor in third trimester with term delmisty colton 01/23/2025 Iron deficiency anemia ginaon ledy to inadequate dietary iron intake 01/12/2025 Overview [...] IOL at 35 5/7wk superim preeclampsia ( 524) Dates by 8 w 2 d u/s. Mat21 09/14/24 low risk;c/w male. 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 07/27/24 baseline LDH and UA elevated. >UA 6.5 11/09/2024 anomaly scan at [facility] Worsening of iron deficiency anemia. Hematocrit [...] labetalol daily. Patient has a history of Hedij-Wqtyrlhpb-Skrik syndrome and underwent an ablation at the [...] Further, a committee opinion published by the [employer] in April [...] women at high risk for preeclampsia (Lore Picking Supervisor Med 2014; 161:819). In a 2020 update, [...] or recurrent preeclampsia requires maternal hospitalization. (from Fonseca and Jailyn, Obstet Gynecol 2008;112:359-72; Rohit CalderonT [...] Overview (10/12/2024): BMI 44 Anomaly scan at [facility]. 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 Fernando in [place] Echo & 2 week holter monitor in August 2023 wnl per patient. PDC appt 11/04; ultrasound within normal limits and normal growth. EFW 57%. No follow-up ultrasound scheduled. Assessment & Plan (11/05/2023 12:32 PM EDT): Patient currently followed by cardiology in [place]. Patient with a history of SVT but has also had cardiac ablation. Patient reports a normal echo and Holter monitor performed in August. Patient asymptomatic today. Given his history patient will likely tolerate well without issues though given cardiac history patient could consider cardiology consultation within [facility] in case patient were to have issues [...] [facility] care @ [facility] weeks [facility] 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 Anemia 28 weeks hematocrit 29%.: on iron. PDC u/s 30 wk; EFW 57% Growth ultrasound 12/01 EFW 48%. AC 66%. Screening for cervical cancer 10/26/2023 10/26/2023 Overview (10/26/2023): Last Pap smear? Chronic hypertension affecting 10/26/2023 07/25/2024 Overview (12/10/2023): Transfer of care at [address] Cordero in [place] Baseline PEP, 24 Hour urine, HGBA1C, T[facility] (29wk); not on medication No meds [...] on hypertensive meds. Blood pressure today 115/67. Opkqn-Xuktjhsgv-Eyiln syndrome 10/26/2023 10/26/2023 Maternal anemia in , antepartum 10/26/2023 07/25/2024 Overview (12/02/2023): On iron supplementation. 11/05/2023 HCT 29.1%. 11/18/2023 Rx Accrufer 30 mg bid Encounters Date Type Department Care Team Description 03/17/2025 Maternal Screening [facility] NURSE CALL C[facility] [address] [place] [address] Ivanna Downing, SUKUMAR 03/09/2025 Maternal Screening [facility] [address] [place] [address] Aracelis Mueller RN 03/06/2025 5:06 AM EDT Anesthesia Event [facility] LABOR DELIVERY [address] [place] [address] Mami Balbuena MD 03/06/2025 12:04 AM EDT - 03/08/2025 10:40 AM EDT Hospital Encounter [facility] MOTHER BABY 4B [address] [place] [address] Zahira Kirkpatrick MD Discharge Disposition: Home or Self Care 03/06/2025 Travel 03/06/2025 - 03/06/2025 11:59 PM EDT Hospital Encounter [facility] LABOR AND DELIVERY PROCEDURES [address] [place] [address] Discharge Disposition: Home or Self Care 03/02/2025 9:30 AM EDT Routine [facility] [address] [address] Kartik Maurice APRN GA: 36w3d 03/02/2025 Travel 02/27/2025 10:50 AM EDT Ancillary Procedure [facility] [address] [address] 36 weeks gestation of ; Chronic hypertension affecting 02/27/2025 9:40 AM EDT Routine [facility] [address] [address] Zahira Kirkpatrick MD GA: 36w0d 02/27/2025 Prep for Surgery [facility] [address] [place] [address] Zahira Kirkpatrick MD 02/27/2025 Travel 02/23/2025 3:15 PM EDT Routine [facility] [address] [facility] [address] [place] [address] Kartik Maurice, WELDER GAS GA: 35w3d 02/23/2025 2:15 PM EDT Office Visit [facility]NAL MEDICINE [address] [facility] [address] [place] [address] Medhat De Anda MD Chronic hypertension affecting (Primary Dx); Poor growth affecting management of mother in third trimester, single or unspecified fetus 02/23/2025 2:03 PM EDT - 02/23/2025 11:59 PM EDT Hospital Encounter [facility] US PER DIAG CTR [address] [place] [address] Zahira Kirkpatrick MD Poor growth affecting management of mother in third trimester, single or unspecified fetus Discharge Disposition: Home or Self Care 02/23/2025 Travel 02/20/2025 9:50 AM EDT Routine [facility] [address] [facility] [address] [place] [address] Zahira Kirkpatrick MD GA: 35w0d 02/20/2025 Travel 02/18/2025 10:19 PM EDT - 02/19/2025 8:03 AM EDT Hospital Encounter [facility] LABOR DELIVERY [address] [place] [address] Zahira Kirkpatrick MD Forester, Corey Blake, MD Discharge Disposition: Home or Self Care 02/18/2025 Travel 02/16/2025 2:15 PM EDT Routine [facility] [address] [facility] [address] [place] [address] Kartik Maurice APRN GA: 34w3d 02/16/2025 Travel 02/13/2025 7:05 PM EDT Lab [facility] [address] [place] [address] care, third trimester 02/13/2025 9:30 AM EDT Routine [facility] [address] [address] Zahira Kirkpatrick MD GA: 34w0d 02/13/2025 Travel 02/11/2025 Results Follow-Up [facility] [address] [address] Shania Schwab APRN 02/09/2025 11:15 AM EDT Routine [facility] [address] [address] Shania Schwab APRN GA: 33w3d 02/09/2025 Travel 02/07/2025 Results Follow-Up [facility] [address] [address] Zahira Kirkpatrick MD 02/06/2025 1:10 PM EDT Routine [facility] [address] [address] Zahira Kirkpatrick MD GA: 33w0d 02/06/2025 Travel 02/03/2025 3:30 PM EDT Ancillary Procedure [facility] [address] [address] History of pre-eclampsia in prior , currently ; 32 weeks gestation of ; Essential hypertension; NST (non-stress test) nonreactive 02/03/2025 2:30 PM EDT Routine [facility] [address] [place] [address] Jose LHaroldoobed Anna APRN GA: 32w4d 02/03/2025 Travel 01/30/2025 Telephone [facility] [address] [place] [address] Zahira Kirkpatrick MD 01/23/2025 9:29 PM EDT - 01/27/2025 1:22 PM EDT Hospital Encounter [facility] ANTEPARTUM [address] [place] [address] Arturo Feliz MD Gardner, Lex J, MD Discharge Disposition: Home or Self Care 01/23/2025 Travel 01/18/2025 Telephone [facility] [address] [place] [address] Arturo Feliz MD 01/12/2025 Results Follow-Up [facility] [address] [place] [address] [place] [address] Arturo Feliz MD 01/11/2025 10:15 AM EDT Routine [facility] [address] [place] [address] Arturo Feliz MD GA: 29w2d 01/11/2025 9:15 AM EDT Office Visit [facility] [address] [place] [address] Rashad Mayer MD History of pre-eclampsia in prior , currently (Primary Dx); Proteinuria affecting , antepartum; Essential hypertension 01/11/2025 9:09 AM EDT - 01/11/2025 11:59 PM EDT Hospital Encounter [facility] US PER DIAG CTR [address] [place] [address] Rashad Mayer MD History of pre-eclampsia in prior , currently ; , unspecified gestational age; Proteinuria affecting , antepartum; Morbid obesity with BMI of 45.0-49.9, adult; WPW (Ytnjq-Tjfldblth-Jp ite syndrome); Essential hypertension Discharge Disposition: Home or Self Care 01/11/2025 Travel from Last 3 Months Immunizations Immunization Administration Dates Next Due 31-influenza Vac Quardvalent Preservativ 05/10/2018 DTaP / Hep [...] drink = 0.6 oz pur e alcohol) [facility] Utilities Answer Date Recorded In the past 12 months has [employer], gas, oil, or water [employer]che[employer] threatened to shut off services in your [...] and heating? Not hard at all 03/06/2025 [facility] [place] of Occupat ional Health - Occupational Stress [...] things needed for daily living? No 03/06/2025 [place] Depression Scale Answer Date Recorded [place] Depression Scale Total 2 03/17/2025 The thought [...] GED or equivalent No 03/06/2025 Preferred Language Monegasque 03/06/2025 PHQ-2 Answer Date Recorded Patient Health [...] 04/17/2025 1:40 PM EDT Visit [facility] [address] [place] [address] Zahira Kirkpatrick MD [address] [facility] [address] [place] [address] Health Maintenance Due Date Last Done Comments Annual Gynecologic Pelvic and Breast Exam 2000 HPV VACCINES (1 - 3-dose series) 2015 ANNUAL PHYSICAL 10/26/2023 COVID-19 Vaccine (2023- season) 2024 05/22/2021, 09/12/2020, 08/22/2020 INFLUENZA VACCINE [...] care, third trimester 35 weeks gestation of [facility] Routine 02/23/2025 2:44 PM EDT [...] weeks gestation of SCANNED - PROCEDURE 02/03/2025 [facility] [place] Routine 01/25/2025 11:10 AM EDT POCT AMNISURE [...] 01/11/2025 10:05 AM EDT care, antepartum, unspecified [facility] Routine 01/11/2025 9:42 AM EDT History of pre-eclampsia in prior , currently , unspecified gestational age Proteinuria affecting , antepartum Morbid obesity with BMI of 45.0-49.9, adult WPW (Kmvbr-Vpicawhec-Fpg te syndrome) Essential hypertension LIQUID-BASED PAP SMEAR [...] - 10.80 10*3/mm3 03/08/2025 6:04 AM EDT [facility] RBC 2.82(L) 3.77 - 5.28 10*6/mm3 03/08/2025 6:04 AM EDT [facility] Hemoglobin 7.2(L) 12.0 - 15.9 g/dL 03/08/2025 6:04 AM EDT [facility] Hematocrit 24.1(L) 34.0 - 46.6 % 03/08/2025 6:04 AM EDT [facility] MCV 85.5 79.0 - 97.0 fL 03/08/2025 6:04 AM EDT [facility] MCH 25.5(L) 26.6 - 33.0 pg 03/08/2025 6:04 AM EDT [facility] MCHC 29.9(L) 31.5 - 35.7 g/dL 03/08/2025 6:04 AM EDT [facility] RDW 15.5(H) 12.3 - 15.4 % 03/08/2025 6:04 AM EDT [facility] RDW-SD 47.4 37.0 - 54.0 fl 03/08/2025 6:04 AM EDT [facility] MPV 11.8 6.0 - 12.0 fL 03/08/2025 6:04 AM EDT [facility] Platelets 213 140 - 450 10*3/mm3 03/08/2025 6:04 AM EDT [facility] Blood Venipuncture / Unknown 03/08/2025 5:27 AM EDT 03/08/2025 5:55 AM EDT us Kelly Patricia WELDER GAS LAB BLOOD ORDERABLES Final Result [facility]
[address] [place] [address], * (ABNORMAL) CBC Auto Differential (03/07/2025 5:07 AM EDT) WBC 9.80 3.40 - 10.80 10*3/mm3 03/07/2025 5:34 AM EDT [facility] RBC 2.90(L) 3.77 - 5.28 10*6/mm3 03/07/2025 5:34 AM EDT [facility] Hemoglobin 7.6(L) 12.0 - 15.9 g/dL 03/07/2025 5:34 AM EDT [facility] Hematocrit 24.7(L) 34.0 - 46.6 % 03/07/2025 5:34 AM EDT [facility] MCV 85.2 79.0 - 97.0 fL 03/07/2025 5:34 AM EDT [facility] MCH 26.2(L) 26.6 - 33.0 pg 03/07/2025 5:34 AM EDT [facility] MCHC 30.8(L) 31.5 - 35.7 g/dL 03/07/2025 [facility] RDW 15.0 12.3 - 15.4 % 03/07/2025 5:34 AM [facility] RDW-SD 46.5 37.0 - 54.0 fl 03/07/2025 5:34 AM [facility] MPV 11.9 6.0 - 12.0 fL 03/07/2025 5:34 AM EDT [facility] Platelets 210 140 - [...] 1.70 - 7.00 10*3/mm3 03/07/2025 5:[facility] Lymphocytes, Absolute 2.09 0.70 - 3.10 10*3/mm3 03/07/2025 5:[facility] Monocytes, Absolute 0.57 0.10 - 0.90 10*3/mm3 03/07/2025 5:[facility] Eosinophils, Absolute 0.09 0.00 - 0.40 10*3/mm3 03/07/2025 5:34 AM EDT [facility] Basophils, Absolute 0.04 0.00 - 0.20 10*3/mm3 03/07/2025 5:34 AM EDT [facility] Immature Grans, Absolute 0.40(H) 0.00 - 0.05 10*3/mm3 03/07/2025 5:34 AM EDT [facility] nRBC 0.3(H) 0.0 - 0.2 /100 WBC 03/07/2025 5:34 AM EDT [facility] Blood Venipuncture / Unknown 03/07/2025 5:07 AM EDT 03/07/2025 5:16 AM EDT Zahira Kirkpatrick MD LAB BLOOD ORDERABLES Final Resu lt [facility]
[address] [place] [address], * Tissue Pathology Exam (03/06/2025 5:50 AM EDT) Case Report Surgical Pathology Report Case: [id number] Authorizing Provider: Zahira Kirkpatrick MD Collected: 03/06/2025 05:50 AM Ordering Location: [facility] Received: 03/06/2025 06:11 AM LABOR DELIVERY Pathologist: Shilpa Rascon MD Specimen: Placenta, Placenta, 37 weeks IUGR, hypertension 03/07/2025 11:25 AM EDT [facility] Clinical Information 37 weeks, IUGR, hypertension 03/07/2025 11:25 AM EDT [facility] Final Diagnosis Placenta, vaginal delivery: Mature placental parenchyma with increased perivillous and subchorionic fibrin deposition Three-vessel umbilical cord 03/07/2025 11:25 AM EDT [facility] at 1125 EDT Gross [...] spongy parenchyma with no gross lesions identified. Payroll Clerk sections are submitted as follows: 1A-umbilical cord with false knot and membrane roll 5X-dypz-qzoskdfka disc with subchorionic fibrin 8T-mysl-jylbzytjn disc at cord insertion site. LDP 03/07/2025 11:25 AM EDT [facility] Microscopic Description The slides are reviewed and demonstrate histopathologic features supporting the above rendered diagnosis. 03/07/2025 11:25 AM EDT [facility] Tissue Placental structure / Unknown Collection / Unknown 03/06/2025 5:50 AM EDT 03/06/2025 6:11 AM EDT Zahira Kirkpatrick MD PATHOLOGY/CYTOLOGY ORDERABLES F inal Result [facility]
[address] [place] [address], * [facility] AN LABOR EPIDURAL KIT (03/06/2025 5:49 AM EDT) Narrative Mami Balbuena MD - 03/06/2025 5:49 AM EDT Mami Balbuena MD 03/06/2025 5:49 AM Labor Epidural Patient reassessed immediately prior to procedure Patient location during procedure: OB Preanesthetic Checklist Completed: patient identified, IV checked, risks and benefits discussed, surgical consent, monitors and equipment checked, pre-op evaluation and timeout performed Prep: Pt Position:sitting Terrestrial Ecologist:cap, gloves, sterile barrier, mask and gown Prep:chlorhexidine [...] Urine, Clean Catch (03/06/2025 1:19 AM EDT) Pathologist [facility] Protein/Creati nine Ratio, Urine 399.3(H) 0.0 - 200.0 mg/G Crea 03/06/2025 9:31 AM EDT [facility] Creatinine, Urine 108.2 mg/dL 03/06/2025 9:31 AM EDT [facility] Total Protein, Urine 43.2 mg/dL 03/06/2025 9:31 AM EDT [facility] Urine Urine specimen obtained by clean catch procedure / Unknown Collection / Unknown 03/06/2025 1:19 AM EDT 03/06/2025 1:19 AM EDT Zahira Kirkpatrick MD URINE ORDERABLES Final Result [facility]
[address] [place] [address], * Treponema pallidum AB w/Reflex RPR (03/06/2025 1:11 AM EDT) Only the most recent of2 resultswithin the time period is included. Treponemal AB Total Non-Reacti ve Non-React ramya 03/06/2025 1:42 PM EDT [facility] Blood Venipuncture / Unknown 03/06/2025 1:11 AM EDT 03/06/2025 1:11 AM EDT Narrative [facility] - 03/06/2025 1:42 PM EDT Reactive results will reflex RPR testing. us Zahira Kirkpatrick MD LAB BLOOD ORDERABLES Final Resu lt [facility]
[address] [place] [address], * (ABNORMAL) Iron Profile w/o Ferritin (03/06/2025 1:11 AM EDT) Iron 54 37 - 145 mcg/dL 03/06/2025 6:36 AM EDT [facility] Iron Saturation (TSAT) 8(L) 20 - 50 % 03/06/2025 6:36 AM EDT [facility] Transferrin 482(H) 200 - 360 mg/dL 03/06/2025 6:36 AM EDT [facility] TIBC 718(H) 298 - 536 mcg/dL 03/06/2025 6:36 AM EDT [facility] Blood Venipuncture / Unknown 03/06/2025 1:11 AM EDT 03/06/2025 2:53 AM EDT us Zahira Kirkpatrick MD LAB BLOOD ORDERABLES Final Resu lt Performing Organization Address City/[facility]/ZIP Co de Phone Number [facility]
[address] [place] [address], [place] [phone] * (ABNORMAL) Uric Acid (03/06/2025 1:11 AM EDT) Only the most recent of2 resultswithin the time period is included. Uric Acid 6.6(H) 2.4 - 5.7 mg/dL 03/06/2025 3:12 AM EDT [facility] Comment:Falsely depressed re sults may occur on samples drawn from patients receiving N-Acetylcysteine (NAC) or Metamizole. Blood Venipuncture / Unknown 03/06/2025 1:11 AM EDT 03/06/2025 2:53 AM EDT us Zahira Kirkpatrick MD LAB BLOOD ORDERABLES Final Resu lt Performing Organization Address City/[facility]/ZIP Co de Phone Number [facility]
[address] [place] [address], [place] [phone] * Lactate Dehydrogenase (03/06/2025 1:11 AM EDT) Only the most recent of2 resultswithin the time period is included. LDH 187 135 - 214 U/L 03/06/2025 3:12 AM EDT [facility] Blood Venipuncture / Unknown 03/06/2025 1:11 AM EDT 03/06/2025 2:53 AM EDT us Zahira Kirkpatrick MD LAB BLOOD ORDERABLES Final Resu lt Performing Organization Address [facility] Co de Phone Number [facility]
[address] [place] [address], [place] [phone] * (ABNORMAL) Ferritin (03/06/2025 1:11 AM EDT) Ferritin 7.88(L) 13.00 - 150.00 ng/mL 03/06/2025 6:36 AM EDT [facility] Blood Venipuncture / Unknown 03/06/2025 1:11 AM EDT 03/06/2025 2:53 AM EDT Narrative [facility] - 03/06/2025 6:36 AM EDT Results may be falsely decreased if patient taking Biotin. us Zahira Kirkpatrick MD LAB BLOOD ORDERABLES Final Resu lt Performing Organization Address City/[facility]/ZIP Co de Phone Number [facility]
[address] [place] [address], [place] [phone] * (ABNORMAL) Comprehensive Metabolic Panel (03/06/2025 1:11 AM EDT) Only the most recent of3 resultswithin the time period is included. Glucose 84 65 - 99 mg/dL 03/06/2025 3:12 AM EDT [facility] BUN 8.9 6.0 - 20.0 mg/dL 03/06/2025 3:12 AM EDT [facility] Creatinine 0.87 0.57 - 1.00 mg/dL 03/06/2025 3:12 AM EDT [facility] Sodium 137 136 - 145 mmol/L 03/06/2025 3:12 AM EDT [facility] Potassium 4.0 3.5 - 5.2 mmol/L 03/06/2025 3:12 AM EDT [facility] Chloride 106 98 - 107 mmol/L 03/06/2025 3:12 AM EDT [facility] CO2 18.4(L) 22.0 - 29.0 mmol/L 03/06/2025 3:12 AM EDT [facility] Calcium 8.7 8.6 - 10.5 mg/dL 03/06/2025 3:12 AM EDT [facility] Total Protein 6.3 6.0 - 8.5 g/dL 03/06/2025 3:12 AM EDT [facility] Albumin 3.4(L) 3.5 - 5.2 g/dL 03/06/2025 3:12 AM EDT [facility] ALT (SGPT) 22 1 - 33 U/L 03/06/2025 3:12 AM EDT [facility] AST (SGOT) 16 1 - 32 U/L 03/06/2025 3:12 AM EDT [facility] Alkaline Phosphatase 113 39 - 117 U/L 03/06/2025 3:12 AM EDT [facility] Total Bilirubin 0.7 0.0 - 1.2 mg/dL 03/06/2025 3:12 AM EDT [facility] Globulin 2.9 gm/dL 03/06/2025 3:12 AM EDT [facility] Comment:Calculated Result A/G Ratio 1.2 g/dL 03/06/2025 3:12 AM EDT [facility] BUN/Creatinine Ratio 10.2 7.0 - 25.0 03/06/2025 3:12 AM EDT [facility] Anion Gap 12.6 5.0 - 15.0 mmol/L 03/06/2025 3:12 AM EDT [facility] eGFR 95.6 >60.0 mL/min/1.7 3 03/06/2025 3:12 AM EDT [facility] Blood Venipuncture / Unknown 03/06/2025 1:11 AM EDT 03/06/2025 2:53 AM EDT [facility] - 03/06/2025 3:12 AM [...] not include race as a factor us Zahira Kirkpatrick MD LAB BLOOD ORDERABLES Final Resu lt [facility]
[address] [place] [address], * Type & Screen (03/06/2025 1:03 AM EDT) Only the most recent of3 resultswithin the time period is included. ABO Type A 03/06/2025 1:37 AM EDT [facility] RH type Positive 03/06/2025 1:37 AM EDT [facility] Antibody Screen Negative 03/06/2025 1:37 AM EDT [facility] T&S Expiration Date 03/09/2025 11:59:59 PM 03/06/2025 1:37 AM EDT [facility] Blood Venipuncture / Unknown 03/06/2025 1:03 AM EDT 03/06/2025 1:03 AM EDT Zahira Kirkpatrick MD BLOOD BANK TEST ORDERABLES Edit ed Result - Final Performing Organization Address City/[facility]/ZIP Co de Phone Number [facility]
[address] [place] [address], [place] [phone] * POC Urinalysis Dipstick (03/02/2025 9:58 AM EDT) Only the most recent of6 resultswithin the time period is included. Glucose, UA Negative Negative mg/dL [facility] Protein, POC Negative Negative mg/dL [facility] Urine 03/02/2025 9:58 AM EDT Kartik Maurice APRN POINT OF CARE TEST O RDERABLES Final Result Performing Organization Address [facility] Co de Phone Number [facility]
[address] [id number], [place] [phone] * Procedure Scanned (03/02/2025) Kartik Maurice APRN PROCEDURE/MINOR SURG ICAL ORDERABLES Final Result * US Biophysical Profile;With Non-Stress Testing (02/27/2025 11:10 AM EDT) Only the most recent of2 resultswithin the time period is included. Anatomical Region Laterality Modality Body Ultrasound 02/27/2025 11:5 2 AM EDT Narrative 02/27/2025 11:12 AM EDT PAT NAME: LISA RILEY MED REC#: [id number] DA: 2000 PAT GEND: F PAT TYPE: O EXAM JAYSON: [id number] REF PHYS ZAHIRA KIRKPATRICK Indication ======== Non reactive NST; Morbid [...] of testing for the condition being monitored. Commercial Crabber: Annamaria Eli RT R, MS Physician: Zahira Kirkpatrick MD Electronically signed by: Zahira Kirkpatrick MD at: 11:12 Procedure Note Zahira Kirkpatrick MD - 02/27/2025 PAT NAME: LISA RILEY MED REC#: [id number] DA: 2000 PAT GEND: F PAT TYPE: O EXAM JAYSON: [id number] REF PHYS ZAHIRA KIRKPATRICK Indication ======== Non reactive NST; Morbid obesity BMI 45 Comparison Studies The findings of this study are compared to the prior ultrasound studydated 02/23/25 Method ======= Voluson E6, Transabdominal ultrasound examination. View: Sufficient ========= Hernandez . Number of fetuses: 1 Dating ====== Cycle:irregular cycle Method of dating:based on stated CONG GA by prior [id number] w + 0 d CONG by prior assessment:03/27/2025 Previous Ultrasound on:07/25/2024 Type of prior assessment:GS mean Previous dating:based on stated CONG, selected on 02/03/2025 Agreed CONG of previous datin03/27/2025 Assigned:based on stated CONG, selected on 02/27/2025 Assigned GA36 w + 0 d Assigned CONG:03/27/2025 [id number] d General Evaluation Cardiac activity present. FHR [...] schedule of testing for the condition beingmonitored. Commercial Crabber: Annamaria Eli RT Kyle, [facility] Physician: Zahira Kirkpatrick MD Electronically signed by: Zahira Kirkpatrick MD at: 11:12 us Zahira Kirkpatrick MD [facility] ORDERABLES Final Result * POC Protein, Urine, Qualitative, Dipstick (02/27/2025 10:27 AM EDT) Only the most recent of4 resultswithin the time period is included. Protein, POC Negative Negative mg/dL [facility] Lot Number 0 [facility] Expiration Date 0 [facility] Urine 02/27/2025 10:2 7 AM EDT Zahira Kirkpatrick MD POINT OF CARE TEST ORDERABLES F inal Result [facility]
[address] [place] [address], * POC Glucose, Urine, Qualitative, Dipstick (02/27/2025 10:27 AM EDT) Only the most recent of4 resultswithin the time period is included. Glucose, UA Negative Negative mg/dL [facility] Urine 02/27/2025 10:2 7 AM EDT us Zahira Kirkpatrick MD POINT OF CARE TEST ORDERABLES F inal Result [facility]
[address] [place] [address], * Procedure Scanned (02/27/2025) us Zahira Kirkpatrick MD PROCEDURE/MINOR SURGICAL ORDERA BLES Final Result * [facility] (02/23/2025 2:44 PM EDT) Only the most recent of3 resultswithin the time period is included. Anatomical Region Laterality Modality Ultrasound 02/23/2025 2:19 PM EDT Narrative 02/23/2025 2:48 PM EDT PAT NAME: LISA RILEY MED REC#: [id number] DA: 2000 PAT GEND: F PAT TYPE: O EXAM JAYSON: [id number] REF ZAHIRA HOLCOMB Comparison Studies The findings of this study [...] EFW (oz) 11 oz EFW by: Hadlock ([id number]) Extended Cav. septi pel. tr 5.9 mm [...] Normal Heart / Thorax 3-vessel view: Normal 9-ahfdnc-loxodza view: normal Stomach: Appears normal Kidneys: Appears [...] Recommend 37 week delivery. Coding ======= Description: 43544-41 Follow Up Ultrasound Description: 54097-91 BPP without NST Description: 00308-51 Doppler Umbilical Artery Commercial Crabber: Destini Hall RDMS Physician: Medhat De Anda MD, FACOG Electronically signed by: Medhat De Anda MD, FACOG at: 14:48 Procedure Note Medhat De Anda MD - 02/23/2025 PAT NAME: LISA RILEY [facility] REC#: [id number] DA: 2000 PAT GEND: F PAT TYPE: O EXAM JAYSON: [id number] REF PHYS ZAHIRA KIRKPATRICK Comparison Studies The findings of this study are compared to the prior ultrasound studydated 01/25/25. Patient Status Outpatient Indication ======== contractions. CHTN. Chronic proteinuria. Maternal Ghosh ParkinsonWhite. Hx PTD 35 wk - preeclampsia. Morbid obesity BMI 47 Maternal Assessment Ixecme371 cm Kkyqjg027 kg Weight (lb)273 lb BMI47.19 kg/m Method ======= Transabdominal ultrasound examination. View: Limited by patient bodyhabitus ========= Hernandez . Number of fetuses: 1 Dating ====== Cycle:irregular cycle GA by prior [id number] w + 3 d CONG by prior [...] GA35 w + 3 d Assigned CONG:03/27/2025 vemfuw128 d Biometry Standard BPD85.5 mm 34w 3d 27% Hadlock FIM496.7 mm 36w 6d 79% Van HC315.5 mm 35w 3d 18% Hadlock Cerebellum tr45.4 mm 34w 6d 27% Hill AC313.1 mm 35w 2d 53% Hadlock Femur67.2 mm 34w 4d 22% Hadlock Mnffyua31.2 mm 34w 2d 40% Van HC / AC1.01 EFW2,567 g 34w 6d 37% Hadlock EFW (lb)5 lb EFW (oz)11 oz EFW by:Hadlock (QAD-SS-VA-FL) Extended Cav. septi pel. tr5.9 mm CM6.7 mm 26% Nicolaides Head / Face / Neck Cephalic index0.77 14% Nicolaides Extremities / Bony Struc FL / BPD0.79 FL / HC0.21 FL / AC0.21 Other Structures MCE793 bpm General Evaluation Cardiac activity present. FHR 177 bpm. movements present. Presentation cephalic. Placenta Placental site: posterior, fundal. Amniotic fluid Amount of AF: normal. MVP 4.8 cm. ELIZABETH 13.6 cm. Q1 3.2 cm,Q2 4.8 cm, Q3 3.4 cm, Q4 2.3 cm. Anatomy Cranium:Normal Cavum septi pellucidi:Normal Cerebellum:Normal Cisterna magna:Normal 4-chamber view:Appears normal RVOT view:Normal LVOT view:Normal Heart / Thorax 3-vessel view:Normal 2-yojsed-evsqthz view:normal Stomach:Appears normal Kidneys:Appears normal Bladder:Appears normal [...] movements 2: tone 2: Amniotic fluid volume 8/8 Biophysical profile score Consultation / Office Visit Office note to follow Impression Today's exam reveals a SIUP in cephalic presentation with biometryconsistent with dates. Limited anatomic survey appears normal. TheAFI, UA dopplers and BPP are normal. Recommendation Follow-up as clinically indicated. Recommend 37 week delivery. Coding ======= Description:32675-23 Follow Up Ultrasound Description:84885-99 BPP without NST Description:24949-47 Doppler Umbilical Artery Commercial Crabber: Destini Hall RDMS Physician: Medhat De Anda MD, FACOG Electronically signed by: Medhat De Anda MD, FACOG at: 14:48 us Zahira Kirkpatrick MD IMG US ORDERABLES Final Result * Procedure Scanned (02/23/2025) Kartik Darnell Kaylene WELDER GAS PROCEDURE/MINOR SURG ICAL ORDERABLES Final Result * Procedure Scanned (02/20/2025) us Zahira Kirkpatrick MD PROCEDURE/MINOR SURGICAL ORDERA BLES Final Result * Procedure Scanned (02/16/2025) us Kartik Patrick Kaylene WELDER GAS PROCEDURE/MINOR SURG ICAL ORDERABLES Final Result * Group B Streptococcus Culture - Swab, Vaginal/Rectum (02/13/2025 6:55 PM EDT) Pathologist [facility] Group B Strep Culture No Group B Streptococcus isolated SEAN 02/16/2025 10:43 AM EDT [facility] Swab Rectum and vagina, CS / Unknown Collection / Unknown 02/13/2025 6:55 PM EDT 02/13/2025 6:55 PM EDT us Zahira Kirkpatrick MD MICROBIOLOGY - GENERAL ORDERABL ES Final Result [facility]
[address] [place] [address], * (ABNORMAL) Protein, Urine, 24 Hour - Urine, Clean Catch (02/13/2025 9:47 AM EDT) Pathologist [facility] Total Protein, Urine 16.3 mg/dL [facility] Protein, 24H Urine 211.9(H) 0.0 - 150.0 mg/24hours [facility] 24 Hour Urine Urine specimen obtained by clean catch procedure / Unknown 02/13/2025 9:47 AM EDT 02/13/2025 Narrative [facility]) - 02/14/2025 3:35 AM EDT Performed at: 01 - [facility] [address] [place], [place] [id number] American Indian Policy Specialist: Fabian Cabrera MD, Phone: [phone] us Arturo Feliz MD URINE ORDERABLES Final Res ult Performing Organization Address [facility]/ZIP Co de Phone Number [facility] [address] [place] [address], [place] [phone] [facility] [address] [place] [address], * Procedure Scanned (02/13/2025) Zahira Kirkpatrick MD PROCEDURE/MINOR SURGICAL ORDERA BLES Final Result * Chlamydia trachomatis, Neisseria gonorrhoeae, PCR w/ confirmation - Swab, Vagina (02/13/2025 12:00 AM EDT) Chlamydia trachomatis, EARNESTINE Negative Negative [facility] Neisseria gonorrhoeae, EARNESTINE Negative Negative [facility] Swab Vaginal structure / Unknown 02/13/2025 02/13/2025 Comment:Swab Release to denice e Narrative [facility] (AMBULATORY) - 02/14/2025 8:09 PM EDT Performed at: [address] [place] [id number] American Indian Policy Specialist: Alice Soriano MD, Phone: [phone] Zahira Kirkpatrick MD MICROBIOLOGY - GENERAL ORDERABL ES Final Result Performing Organization Address [facility] de Phone Number [facility] (AMBULATORY) [address] [place] [address], [place] [phone] [facility] [address] [place] [address], [place] [phone] * (ABNORMAL) AlP+ALT+AST+Creat+LD+TBili+.. (02/09/2025 12:39 PM EDT) [...] Blood 02/09/2025 12:3 9 PM EDT 02/09/2025 [facility] (AMBULATORY) - 02/10/2025 3:35 AM EDT Performed at: [facility] [address] [place] [id number] American Indian Policy Specialist: Edgar Mccartney PhD, Phone: [phone] Shania Schwab APRN LAB BLOOD ORDERABLES Final R esult Performing Organization Address City/[facility]/ZIP Co de Phone Number [facility] [address] [place] [address], [place] [phone] [facility] [address] [place] [address], [place] [phone] * Bile Acids, Total (02/09/2025 12:39 PM EDT) [facility] Bile Acids Total 4.2 0.0 - 10.0 umol/L [facility] Blood 02/09/2025 12:3 9 PM EDT 02/09/2025 [facility] (AMBULATORY) - 02/11/2025 4:36 PM EDT Performed at: [address] [id number] American Indian Policy Specialist: Alice Soriano MD, Phone: [phone] Shania Schwab APRN LAB BLOOD ORDERABLES Final R esult Performing Organization Address City/[facility]/ZIP Co de Phone Number [facility] ([facility]) [address] [place] [address], [place] [phone] [facility] [address] [place] [address], [place] [phone] * (ABNORMAL) Bacterial Vaginosis, EARNESTINE - Swab, Cervix (02/09/2025 12:00 AM EDT) [facility] Atopobium Vaginae Low - 0 Score [facility] BVAB 2 Low - 0 Score [facility] Megasphaera 1 High - 2(A) Score [facility] Comment: Calculate total score by adding [...] / Unknown 02/09/2025 02/09/2025 Comment:Swab Release to [facility] Narrative [facility] (AMBULATORY) - 02/12/2025 5:08 PM EDT Test(s) 859923- Atopobium vaginae; 801516- BVAB 2; 458820- Megasphaera 1 was developed and its performance characteristics determined by [facility]. It has not been cleared or approved by the Food and Drug Administration. Performed at: 01 - [address] [id number] American Indian Policy Specialist: Ina Couch MD, Phone: [phone] Shania Schwab APRN MICROBIOLOGY - GENERAL ORDER CATARINO Final Result [facility] (AMBULATORY) [address] [place] [address], [facility] [address] [place] [address], [place] [phone] * Procedure Scanned (02/09/2025) [facility] Onbase PROCEDURE/MINOR SURGICAL ORDE RABLES Final Result [...] / Unknown 02/09/2025 02/09/2025 Comment:Urine Release to pat i Narrative [facility] - 02/11/2025 3:35 AM EDT Performed at: 01 - [facility] [address] [place] [id number] American Indian Policy Specialist: Edgar Mccartney PhD, Phone: [phone] Shania Schwab WELDER GAS MICROBIOLOGY - GENERAL ORDER CATARINO Final Result [facility] [address] [place] [address], [place] [phone] [facility] [address] [place] [address], [place] [phone] * Procedure Scanned (02/06/2025) Zahira Kirkpatrick MD PROCEDURE/MINOR SURGICAL ORDERA BLES Final Result * Procedure Scanned (02/03/2025) Rosie Domingo APRN PROCEDURE/MINOR SURGICAL ORDE RABLES Final Result * POC Amnisure (01/25/2025 10:43 AM EDT) Amnisure Negative Negative [facility] Amniotic Fluid 01/25/2025 10 :43 AM EDT Erlinda Bingham MD POINT OF CARE TEST OR DERABLES Final Result [facility]
[address] [place] [address], * (ABNORMAL) Urinalysis, Microscopic Only - Urine, Clean Catch (01/23/2025 10:00 PM EDT) Pathologist [facility] RBC, UA 0-2 None Seen, 0-2 /HPF 01/23/2025 10:10 PM EDT [facility] WBC, UA 6-10(A) None Seen, 0-2 /HPF 01/23/2025 10:10 PM EDT [facility] Bacteria, UA None Seen None Seen, Trace /HPF 01/23/2025 10:10 PM EDT [facility] Squamous Epithelial Cells, UA 3-6(A) None Seen, 0-2 /HPF 01/23/2025 10:10 PM EDT [facility] Hyaline Casts, UA 0-6 0 - 6 /LPF 01/23/2025 10:10 PM EDT [facility] Methodology Automated Microscopy 01/23/2025 10:10 PM EDT [facility] Urine Urine specimen obtained by clean catch procedure / Unknown Collection / Unknown 01/23/2025 10:00 PM EDT 01/23/2025 10:00 PM EDT Jose Wilcox MD URINE ORDERABLES Final Result [facility]
[address] [place] [address], * (ABNORMAL) Urinalysis With Culture If Indicated - Urine, Clean Catch (01/23/2025 10:00 PM EDT) Color, UA Yellow Yellow, Straw 01/23/2025 10:10 PM EDT [facility] Appearance, UA Clear Clear 01/23/2025 10:10 PM EDT [facility] pH, UA 6.5 5.0 - 8.0 01/23/2025 10:10 PM EDT [facility] Specific [place], UA 1.015 1.001 - 1.030 01/23/2025 10:10 PM EDT [facility] Glucose, UA Negative Negative 01/23/2025 10:10 PM EDT [facility] Ketones, UA Negative Negative 01/23/2025 10:10 PM EDT [facility] Bilirubin, UA Negative Negative 01/23/2025 10:10 PM EDT [facility] Blood, UA Negative Negative 01/23/2025 10:10 PM EDT [facility] Protein, UA 30 mg/dL (1+)(A) Negative 01/23/2025 10:10 PM EDT [facility] Leuk Esterase, UA Trace(A) Negative 01/23/2025 10:10 PM EDT [facility] Nitrite, UA Negative Negative 01/23/2025 10:10 PM EDT [facility] Urobilinogen, UA 0.2 E.U./dL 0.2 - 1.0 E.U./dL 01/23/2025 10:10 PM EDT [facility] Urine Urine specimen obtained by clean catch procedure / Unknown Collection / Unknown 01/23/2025 10:00 PM EDT 01/23/2025 10:00 PM EDT Narrative [facility] - 01/23/2025 10:10 PM EDT In absence of clinical symptoms, the presence of pyuria, bacteria, and/or nitrites on the urinalysis result does not correlate with infection. us Jose Wilcox MD URINE ORDERABLES Final Result [facility]
[address] [place] [address], * IMAGING SCANNED (01/23/2025) Anatomical Region Laterality Modality Radiographic Grace ging [facility] IMG DIAGNOSTIC IMAGING ORDERA BLES Final Result * Gestational Screen 1 Hr ([facility]) (01/11/2025 10:55 AM EDT) Gestational Diabetes Screen 132 65 - 139 mg/dL [facility] Blood 01/11/2025 10:5 5 AM EDT 01/11/2025 Narrative [facility] ([facility]) - 01/12/2025 3:35 AM EDT Performed at: [address] [place] [address] [place] [id number] American Indian Policy Specialist: Fabian Cabrera MD, Phone: [phone] Arturo Feliz MD LAB BLOOD ORDERABLES Final Result Performing Organization Address City/[facility]/ZIP Co de Phone Number [facility] ([facility]ULATORY) [address] [place] [address], [place] [phone] [facility] [address] [place] [address], * RPR Qualitative with Reflex to Quant (01/11/2025 10:55 AM EDT) RPR Non Reactive Non Reactive [facility] Blood 01/11/2025 10:5 5 AM EDT 01/11/2025 Narrative [facility] ([facility]) - 01/12/2025 5:36 AM EDT Performed at: [facility] [address] [place] [id number] American Indian Policy Specialist: Edgar Mccartney PhD, Phone: [phone] Arturo Feliz MD LAB BLOOD ORDERABLES Final Result Performing Organization Address City/[facility]/ZIP Co de Phone Number [facility] ([facility]) [address] [place] [address], [facility] [address] [place] [address], * Antibody Screen (01/11/2025 10:55 AM EDT) Antibody Screen Negative Negative [facility] Blood 01/11/2025 10:5 5 AM EDT 01/11/2025 Narrative [facility] ([facility]) - 01/12/2025 8:12 AM EDT Performed at: [facility] [address] [place], [place] [id number] American Indian Policy Specialist: Edgar Mccartney PhD, Phone: [phone] Arturo Feliz MD BLOOD BANK TEST ORDERABLES Final Result [facility] ([facility]) [address] [place] [address], [place] [phone] [facility] [address] [place] [address], [place] [phone] * LIQUID-BASED PAP SMEAR WITH HPV GENOTYPING IF ASCUS (KARAN,COR,MAD) (08/17/2024 3:35 PM EST) Pathologist [facility] Reference Lab Report [facility] [address] [place] [address] or [phone] Luis Boyle M.D., Trolley Car Operator PATIENT NAME LABORATORY NO. Zbigniew OSVALDO, OMAHA DARYL NOVA. [id number] AGE SEX SSN CLIENT REF # [facility] 23 2000 F [id number] [address] REQUESTING M.Lexi. 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 ThinPrep Vial Cervix uteri structure / Unknown Collection / Unknown 08/17/2024 3:35 PM EST 08/17/2024 3:36 PM EST us Arturo Feliz MD PATHOLOGY/CYTOLOGY ORDERAB LES Final Result [facility]
[address] [place] [address], * (ABNORMAL) Obstetric Panel (08/17/2024 3:31 PM [...] - 08/18/2024 10:35 AM EST Performed at: - [facility] [address] [place], [place] [id number] American Indian Policy Specialist: Edgar Mccartney PhD, Phone: [phone] us Arturo Feliz MD LAB BLOOD ORDERABLES Final Result [facility] [employer] [facility] ([facility]BULATORY) [address] [place] [address], [facility] [address] [place] [address], from Last 3 Months or Most Recently Relevant to Health Maintenance Insurance [facility] [employer] UMR Advance Directives * CPR (Attempt to [...] Of Support Discussed With: Patient Care Teams Crm Marketing Executive Relationship Specialty Start Date End Date Jefe Schwartz MD formerly [facility] [address] [address] PCP - General Adolescent Medicine 12/14/23
--- OUTSIDE RECORDS SUMMARY | 2025-04-07 11:17 | XMS_ITS | Encounter Summary ---
Author Organization [facility] Address [address] [place] [address] Care Team Providers Care Form Builder Name Role Phone Jefe Schwartz MD Primary Care Provider [phone] Encounter Details Date Type Department Care Team (Late st Contact Info) Description 11/25/2024 Results Follow-Up [facility] [address] [id number] Izaiah Mcdaniels MD [address] [facility] [address] [id number] Social History Tobacco Use Types Packs/Day Years Used Date Smoking Tobacco: Former Cigarettes Q uit: 01/2024 Smokeless Tobacco: Never Comments:Vape. Alcohol Use Standard Drinks/Week Comments Never 0 (1 standard drink = 0.6 oz pur e alcohol) [facility] Utilities Answer Date Recorded In the past 12 months has [employer], [employer], oil, or water [employer] threatened to shut off services in your [...] and heating? Not hard at all 12/12/2023 [facility] [place] of Occupat ional Health - Occupational Stress [...] things needed for daily living? No 12/12/2023 [place] Depression Scale Answer Date Recorded Retired [...] GED or equivalent No 12/12/2023 Preferred Language Comoran 12/12/2023 PHQ-2 Answer Date Recorded Retired PHQ-9: [...] Info) Description 04/17/2025 1:40 PM EDT Visit [facility] OBGYN [address] [facility] [address] [place] [address] Aydin Crowe MD [address] [facility] [address] [place] [address] documented as of this encounter Visit Diagnoses Not on filedocumented in this encounter Care Teams Form Builder Relationship Specialty Start Date End Date Jefe Schwartz MD [address] [facility] [address] [place] [address] PCP - General Adolescent Medicine 12/14/23 documented as of this encounter
--- OUTSIDE RECORDS SUMMARY | 2025-04-07 11:17 | XMS_ITS | Encounter Summary ---
Author Organization [facility] Address [address] [place] [address] Care Team Providers Care Sammying Machine Operator Name Role Phone Jefe Schwartz MD Primary Care Provider [phone] Encounter Details Date Type Department Care Team (Latest Contact Info) Description 03/02/2025 Travel Social History Tobacco Use Types Packs/Day Years Used Date Smoking Tobacco: Some Days Cigarettes Last attempted to quit: 01/2024 Smokeless Tobacco: Never Comments:Vape. Alcohol Use Standard Drinks/Week Comments Never 0 (1 standard drink = 0.6 oz pur e alcohol) [facility] Utilities Answer Date Recorded In the past 12 months has [employer] electric, gas, oil, or water company [...] and heating? Not hard at all 02/18/2025 [facility] [place] of Occupat ional Health - Occupational Stress [...] things needed for daily living? No 02/18/2025 [place] Depression Scale Answer Date Recorded Retired [place] Depression Score 11 02/23/2024 Retired EPD Scale: [...] GED or equivalent No 02/18/2025 Preferred Language Nigerian 02/18/2025 PHQ-2 Answer Date Recorded Patient Health [...] Description 04/17/2025 1:40 PM EDT Visit [facility] OBGYN [address] [facility] [address] [place] [address] Aydin Crowe MD [address] [facility] [address] [place] [address] documented as of this encounter Visit Diagnoses Not on filedocumented in this encounter Care Teams Sammying Machine Operator Relationship Specialty Start Date End Date Jefe Schwartz MD [address] [facility] [address] [place] [address] PCP - General Adolescent Medicine 12/14/23 documented as of this encounter
--- OUTSIDE RECORDS SUMMARY | 2025-04-07 11:17 | XMS_ITS | Encounter Summary ---
Author Organization [facility] Address [address] [place] [address] Care Team Providers Care Benefit Specialist Name Role Phone Jefe Schwartz MD Primary Care Provider [phone] Encounter Details Date Type Department Care Team (Latest Contact Info) Description 02/27/2025 Travel Social History Tobacco Use Types Packs/Day Years Used Date Smoking Tobacco: Former Cigarettes Q uit: 01/2024 Smokeless Tobacco: Never Comments:Vape. Alcohol Use Standard Drinks/Week Comments Never 0 (1 standard drink = 0.6 oz pur e alcohol) [facility] Utilities Answer Date Recorded In the past 12 months has [employer], gas, oil, or water company threatened [...] and heating? Not hard at all 02/18/2025 [facility] [place] of Occupat ional Health - Occupational Stress [...] things needed for daily living? No 02/18/2025 [place] Depression Scale Answer Date Recorded Retired [place] Depression Score 11 02/23/2024 Retired EPD Scale: [...] GED or equivalent No 02/18/2025 Preferred Language Burundian 02/18/2025 PHQ-2 Answer Date Recorded Patient Health [...] Info) Description 04/17/2025 1:40 PM EDT Visit [facility] OBGYN [address] [facility] [address] [address] [place] [address] Aydin Crowe MD 1700 [facility] [address] [place] [address] documented as of this encounter Visit Diagnoses Not on filedocumented in this encounter Care Teams Benefit Specialist Relationship Specialty Start Date End Date Jefe Schwartz MD 1210 [facility] [address] [place] [address] PCP - General Adolescent Medicine 12/14/23 documented as of this encounter
--- OUTSIDE RECORDS SUMMARY | 2025-04-07 11:17 | XMS_ITS | Encounter Summary ---
Author Organization [facility] Address [address] [place] [address] Care Team Providers Care Patternmaker Metal Bench Name Role Phone Jefe Schwartz MD Primary Care Provider [phone] Encounter Details Date Type Department Care Team (Late st Contact Info) Description 02/11/2025 Results Follow-Up [facility] OBGYN [address] [place] [address] Shania Schwab, LABORER HIGH DENSITY PRESS 1700 [facility] [address] [place] [address] Social History Tobacco Use Types Packs/Day Years Used Date Smoking Tobacco: Former Cigarettes Q uit: 01/2024 Smokeless Tobacco: Never Comments:Vape. Alcohol Use Standard Drinks/Week Comments Never 0 (1 standard drink = 0.6 oz pur e alcohol) [facility] Utilities Answer Date Recorded In the past 12 months has [employer], gas, oil, or water [employer] threatened to shut off services in your [...] and heating? Not hard at all 01/23/2025 [facility] - Occupational Stress Questionnaire Answer Date Recorded [...] things needed for daily living? No 01/23/2025 [place] Depression Scale Answer Date Recorded Retired [place] Depression Score 11 02/23/2024 Retired EPD Scale: [...] GED or equivalent No 01/23/2025 Preferred Language Mosotho 01/23/2025 PHQ-2 Answer Date Recorded Patient Health [...] Visit [facility] OBGYN [address] [facility] [address] [place] [address] Aydin Crowe MD 1700 [facility] [address] [place] [address] documented as of this encounter Visit Diagnoses Diagnosis BV (bacterial vaginosis)- Primary Unspecified vaginitis and vulvovaginitis documented in this encounter Care Teams Patternmaker Metal Bench Relationship Specialty Start Date End Date Jefe Schwartz MD 12[address] [place] [facility] [address] [facility] [address] [place] [address] PCP - General Adolescent Medicine 12/14/23 documented as of this encounter
--- OUTSIDE RECORDS SUMMARY | 2025-04-07 11:17 | XMS_ITS | Clinical Summary ---
Author Organization Healthcare Address [address] [place] [address] Care Team Providers Care Photograph Printer Name Role Phone System, Provider Not In [...] Description 02/13/2025 Community Orders Community Practice [address] [place] [address] Izaiah Mcdaniels MD Proteinuria complicating , unspecified trimester (Primary Dx) 01/11/2025 3:40 PM EDT Office Visit [facility] Nephrology, Bone & Mineral Metabolism [address] [facility] [place] [address] Duke White MD Proteinuria complicating , unspecified trimester (Primary Dx); Positive SHANTI (antinuclear antibody); Elevated uric acid in blood; Pustular psoriasis; Primary hypertension 01/11/2025 Travel from Last 3 Months Family History [...] Description 06/30/2025 1:20 PM EST Office Visit [facility] [address] [place] [address] Duke White MD [address] [place] [phone] Health Maintenance Due Date Last Done Comments [facility]-/Child/Adol SDOH Screenings 2000 [facility]-Varicella Vaccines (2 of 2 - 2-dose childhood series) 06/09/2005 03/17/2005 HPV Vaccines (1 - 3-dose series) 2015 [facility]- SDOH Screenings 2018 [facility]-Adult SDOH Screenings 2018 [id number] Vaccine (4 - season) 2024 05/22/2021, 09/12/2020, [...] Reactive Non Reactive 10/06/2024 6:03 PM EST [facility] Comment:Screening for HIV 1 & 2 antibodies, and P24 antigen is NONREACTIVE. No confirmatory testing is required. Blood Venous blood specimen / Unknown Venipuncture / Unknown 10/06/2024 3:25 PM EST 10/06/2024 3:25 PM EST us Aston Meyer MD LAB BLOOD ORDERABLES Final Resul t Performing Organization Address City/[facility] Co de Phone Number [facility] [address] [place] [address] * Acute Hepatitis Panel (10/06/2024 3:25 PM EST) Hepatitis B Surf Antigen Negative Negative 10/06/2024 7:[address] [facility] Hepatitis C Antibody Negative Negative 10/06/2024 7:[address] [facility] Hepatitis A Antibody IgM Negative Negative 10/06/2024 7:[address] [facility] Hepatitis B Core Antibody IgM Negative Negative 10/06/2024 7:[address] [facility] Blood Venous blood specimen / Unknown Venipuncture / Unknown 10/06/2024 3:25 PM EST 10/06/2024 3:25 PM EST us Aston Meyer MD LAB BLOOD ORDERABLES Final Resul t Performing Organization Address City/[facility] Co de Phone Number [facility] [address] [place] [address] from Last 3 Months or Most Recently Relevant to Health Maintenance Insurance [employer] [facility] MED[facility]ID [facility] Care Teams Photograph Printer Relationship Specialty Start Date End Date System, Provider Not In, [address] [place] [address] PCP - General Family Medicine 09/29/24
--- OUTSIDE RECORDS SUMMARY | 2025-04-07 11:17 | XMS_ITS | Encounter Summary ---
Author Organization [facility] Address [address] [place] [address] Care Team Providers Care Schedule Planning Manager Name Role Phone Jefe Schwartz MD Primary Care Provider [phone] Encounter Details Date Type Department Care Team (Latest Contact Info) Description 02/13/2025 Travel Social History Tobacco Use Types Packs/Day Years Used Date Smoking Tobacco: Former Cigarettes Q uit: 01/2024 Smokeless Tobacco: Never Comments:Vape. Alcohol Use Standard Drinks/Week Comments Never 0 (1 standard drink = 0.6 oz pur e alcohol) [facility] Utilities Answer Date Recorded In the past 12 months has [employer] electric, gas, oil, or water company threatened [...] and heating? Not hard at all 01/23/2025 [facility] [place] of Occupat ional Health - Occupational Stress [...] things needed for daily living? No 01/23/2025 [place] Depression Scale Answer Date Recorded Retired [place] Depression Score 11 02/23/2024 Retired EPD Scale: [...] GED or equivalent No 01/23/[address] [place] 01/23/2025 PHQ-2 Answer Date Recorded Patient Health [...] Info) Description 04/17/2025 1:40 PM EDT Visit [facility] OBGYN 1700 [facility] 701 [place] [address] Aydin Crowe MD 1700 [facility] 701 [place] [address] documented as of this encounter Visit Diagnoses Not on filedocumented in this encounter Care Teams Schedule Planning Manager Relationship Specialty Start Date End Date Jefe Schwartz MD 1210 [facility] [address] [place] [address] PCP - General Adolescent Medicine 12/14/23 documented as of this encounter
--- OUTSIDE RECORDS SUMMARY | 2025-04-07 11:17 | XMS_ITS | Encounter Summary ---
Author Organization Healthcare Address [address] [place] [address] Care Team Providers Care Pattern Grader Supervisor Name Role Phone System, Provider Not In MD Primary Care Provider Unavailable Reason for Referral * Consultation (Routine) - Authorized Specialty Diagnoses / Procedures Referred By Jeanne robrets Referred To Contact Nephrology Diagnoses Proteinuria complicating , unspecified trimester Izaiah Mcdaniels MD [address] [address] [place] [address] Phone: tel: fax: [facility] Nephrology, Bone & Mineral Metabolism [address] [facility], [address] [place] [address] Phone: tel: fax: Referral ID Status Reason Start Date Expiration Date Visits Requested Visits Authorized [id number] Authorized Specialty Services Required 02/13/2025 08/15/2026 1 1 Encounter Details Date Type Department Care Team (Late st Contact Info) Description 02/13/2025 Community Orders Community Practice [address] [place] [address] Izaiah Mcdaniels MD [address] [place] [address] Proteinuria complicating , unspecified trimester (Primary Dx) [...] Description 06/30/2025 1:20 PM EST Office Visit [facility] [address] [place] [address] Duke White MD [address] [place] [phone] Scheduled Referrals Name Type Priority Associated Diagnoses [...] documented as of this encounter Care Teams Pattern Grader Supervisor Relationship Specialty Start Date End Date System, Provider Not In, [address] [place] [address] PCP - General Family Medicine 09/29/24 documented as of this encounter
--- OUTSIDE RECORDS SUMMARY | 2025-04-07 11:17 | XMS_ITS | Encounter Summary ---
Author Organization [facility] Address [address] [place] [address] Care Team Providers Care Police Booking Officer Name Role Phone Jefe Schwartz MD Primary Care Provider [phone] Encounter Details Date Type Department Care Team (Latest Contact Info) Description 02/23/2025 Travel Social History Tobacco Use Types Packs/Day Years Used Date Smoking Tobacco: Former Cigarettes Q uit: 01/2024 Smokeless Tobacco: Never Comments:Vape. Alcohol Use Standard Drinks/Week Comments Never 0 (1 standard drink = 0.6 oz pur e alcohol) [facility] Utilities Answer Date Recorded In the past 12 months has [employer] electric, gas, oil, or water company [...] and heating? Not hard at all 02/18/2025 [facility] [place] of Occupat ional Health - Occupational Stress [...] things needed for daily living? No 02/18/2025 [place] Depression Scale Answer Date Recorded Retired [place] Depression Score 11 02/23/2024 Retired EPD Scale: [...] GED or equivalent No 02/18/2025 Preferred Language Grenadian 02/18/2025 PHQ-2 Answer Date Recorded Patient Health [...] Visit [facility] O[facility]YN 1700 [facility] 701 [place] [address] Aydin Crowe MD 1700 [facility] 701 [place] [address] documented as of this encounter Visit Diagnoses Not on filedocumented in this encounter Care Teams Police Booking Officer Relationship Specialty Start Date End Date Jefe Schwartz MD 1210 [facility] [address] [place] [address] PCP - General Adolescent Medicine 12/14/23 documented as of this encounter
--- OUTSIDE RECORDS SUMMARY | 2025-04-07 11:17 | XMS_ITS | Encounter Summary ---
[facility] Address [address] [place] [address] Care Team Providers Care Duct Cleaner Name Role Phone Jefe Schwartz MD Primary Care Provider [phone] Encounter Details Date Type Department Care Team (Late st Contact Info) Description 01/12/2025 Results Follow-Up [facility] OBGYN 1700 [facility] [address] [place] [address] Izaiah Mcdaniels MD 1700 [facility] 701 [place] [address] Social History Tobacco Use Types Packs/Day Years Used Date Smoking Tobacco: Former Cigarettes Q uit: 01/2024 Smokeless Tobacco: Never Comments:Vape. Alcohol Use Standard Drinks/Week Comments Never 0 (1 standard drink = 0.6 oz pur e alcohol) [facility] Utilities Answer Date Recorded In the past 12 months has [employer], gas, oil, or water [employer] threatened to shut off services in your [...] heating? Not hard at all 12/30/2024 [facility] - Occupational Stress Questionnaire Answer Date [...] things needed for daily living? No 12/30/2024 [place] Depression Scale Answer Date Recorded Retired [place] Depression Score 11 02/23/2024 Retired EPD Scale: [...] GED or equivalent No 12/30/2024 Preferred Language Montenegrin 12/30/2024 PHQ-2 Answer Date Recorded Patient Health [...] 1:40 PM EDT Visit [facility] OBGYN [address] [place] [address] Aydin Crowe MD [address] [place] [address] Scheduled Orders Name Type Priority Associated Diagnoses Orde r Schedule Gestational Screen 1 Hr ([facility]) Lab Routine , unspecified gestational age Morbid obesity with BMI of 45.0-49.9, adult Expected: 01/26/2025 (Approximate), Expires: 04/14/2026 documented as of this encounter Visit Diagnoses Diagnosis , unspecified gestational age- Primary Morbid obesity with BMI of 45.0-49.9, adult documented in this encounter Care Teams Duct Cleaner Relationship Specialty Start Date End Date Jefe Schwartz MD [facility] [address] [facility] [address] [place] [address] PCP - General Adolescent Medicine 12/14/23 documented as of this encounter
--- OUTSIDE RECORDS SUMMARY | 2025-04-07 11:17 | XMS_ITS | Encounter Summary ---
Author Organization [facility] Address [address] [place] [address] Care Team Providers Care Business Development Director Name Role Phone Jefe Schwartz MD Primary Care Provider [phone] Encounter Details Date Type Department Care Team (Late st Contact Info) Description 02/27/2025 Prep for Surgery [facility] ORDERS ONLY [address] [place] [address] Aydin Crowe MD 1700 [facility] 701 [place] [address] Social History Tobacco Use Types Packs/Day Years Used Date Smoking Tobacco: Former Cigarettes Q uit: 01/2024 Smokeless Tobacco: Never Comments:Vape. Alcohol Use Standard Drinks/Week Comments Never 0 (1 standard drink = 0.6 oz pur e alcohol) [facility] Utilities Answer Date Recorded In the past 12 months has [employer], gas, oil, or water [employer] threatened to shut off services in your [...] and heating? Not hard at all 02/18/2025 [employer] [place] of Occupat ional Health - Occupational Stress [...] things needed for daily living? No 02/18/2025 [place] Depression Scale Answer Date Recorded Retired [place] Depression Score 11 02/23/2024 Retired EPD Scale: [...] GED or equivalent No 02/18/2025 Preferred Language Lebanese 02/18/2025 PHQ-2 Answer Date Recorded Patient Health [...] Info) Description 04/17/2025 1:40 PM EDT Visit [facility] OBGYN 1700 [facility] 701 [place] [address] Aydin Crowe MD 1700 [facility] [address] [place] [address] documented as of this encounter Visit Diagnoses Not on filedocumented in this encounter Care Teams Business Development Director Relationship Specialty Start Date End Date Jefe Schwartz MD 1210 [facility] [address] [facility] [place] [address] PCP - General Adolescent Medicine 12/14/23 documented as of this encounter
--- OUTSIDE RECORDS SUMMARY | 2025-04-07 11:18 | XMS_ITS | Encounter Summary ---
Author Organization [facility] Address [address] [place] [address] Care Team Providers Care Director Wholesale Name Role Phone Jefe Schwartz MD Primary Care Provider [phone] Encounter Details Date Type Department Care Team (Latest Contact Info) Description 02/20/2025 Travel Social History Tobacco Use Types Packs/Day Years Used Date Smoking Tobacco: Former Cigarettes Q uit: 01/2024 Smokeless Tobacco: Never Comments:Vape. Alcohol Use Standard Drinks/Week Comments Never 0 (1 standard drink = 0.6 oz pur e alcohol) [facility] Utilities Answer Date Recorded In the past 12 months has [employer] electric, gas, oil, or water company threatened [...] hard at all 02/18/2025 [facility] [place] of Occupat ional Health - Occupational Stress [...] things needed for daily living? No 02/18/2025 [place] Depression Scale Answer Date Recorded Retired [place] Depression Score 11 02/23/2024 Retired EPD Scale: [...] GED or equivalent No 02/18/2025 Preferred Language Egyptian 02/18/2025 PHQ-2 Answer Date Recorded Patient Health [...] Info) Description 04/17/2025 1:40 PM EDT Visit [facility] OBGYN 1700 [facility] 701 [place] [address] Aydin Crowe MD 1700 [facility] [address] [place] [address] documented as of this encounter Visit Diagnoses Not on filedocumented in this encounter Care Teams Director Wholesale Relationship Specialty Start Date End Date Jefe Schwartz MD 1210 [facility] [address] [place] [address] PCP - General Adolescent Medicine 12/14/23 documented as of this encounter
--- OUTSIDE RECORDS SUMMARY | 2025-04-07 11:18 | XMS_ITS | Encounter Summary ---
Author Organization [facility] Address [address] [place] [address] Care Team Providers Care Manager Etl Name Role Phone Jefe Schwartz MD Primary Care Provider [phone] Encounter Details Date Type Department Care Team (Latest Contact Info) Description 02/18/2025 Travel Social History Tobacco Use Types Packs/Day Years Used Date Smoking Tobacco: Former Cigarettes Q uit: 01/2024 Smokeless Tobacco: Never Comments:Vape. Alcohol Use Standard Drinks/Week Comments Never 0 (1 standard drink = 0.6 oz pur e alcohol) [facility] Utilities Answer Date Recorded In the past 12 months has [employer] electric, gas, oil, or water company threatened [...] and heating? Not hard at all 02/18/2025 [facility] [place] of Occupat ional Health - Occupational Stress [...] things needed for daily living? No 02/18/2025 [place] Depression Scale Answer Date Recorded Retired [place] Depression Score 11 02/23/2024 Retired EPD Scale: [...] GED or equivalent No 02/18/2025 Preferred Language Faroese 02/18/2025 PHQ-2 Answer Date Recorded Patient Health [...] 10:41 PM EDT Lalito Evans RN * [place] Suicide Severity Rating Scale (Screener/Recent Self-Report) Question [...] 04/17/2025 1:40 PM EDT Visit [facility] OBGYN 1700 [facility] 701 [place] [address] Aydin Crowe MD [address] [place] [id number] documented as of this encounter Visit Diagnoses Not on filedocumented in this encounter Care Teams Manager Etl Relationship Specialty Start Date End Date Jefe Schwartz MD 1210 [facility] [address] [facility] [address] [place] [address] PCP - General Adolescent Medicine 12/14/23 documented as of this encounter
--- OUTSIDE RECORDS SUMMARY | 2025-04-07 11:18 | XMS_ITS | Encounter Summary ---
Author Organization [facility] Address [address] [place] [address] Care Team Providers Care White Lead Grinder Name Role Phone Jefe Schwartz MD Primary Care Provider [phone] Encounter Details Date Type Department Care Team (Latest Contact Info) Description 02/16/2025 Travel Social History Tobacco Use Types Packs/Day Years Used Date Smoking Tobacco: Former Cigarettes Q uit: 01/2024 Smokeless Tobacco: Never Comments:Vape. Alcohol Use Standard Drinks/Week Comments Never 0 (1 standard drink = 0.6 oz pur e alcohol) [facility] Utilities Answer Date Recorded In the past 12 months has [employer] electric, gas, oil, or water company threatened [...] and heating? Not hard at all 01/23/2025 [facility] [place] of Occupat ional Health - Occupational Stress [...] things needed for daily living? No 01/23/2025 [place] Depression Scale Answer Date Recorded Retired [place] Depression Score 11 02/23/2024 Retired EPD Scale: [...] GED or equivalent No 01/23/2025 Preferred Language Comoran 01/23/2025 PHQ-2 Answer Date Recorded Patient Health [...] [facility] OBGYN 1700 [facility] [address] [place] [address] Aydin Crowe MD 1700 [facility] [address] [place] [address] documented as of this encounter Visit Diagnoses Not on filedocumented in this encounter Care Teams White Lead Grinder Relationship Specialty Start Date End Date Jefe Schwartz MD 1210 [facility] [address] [place] [address] PCP - General Adolescent Medicine 12/14/23 documented as of this encounter
--- OUTSIDE RECORDS SUMMARY | 2025-04-07 11:21 | XMS_ITS | Encounter Summary ---
Author Organization [facility] Address [address] [place] [address] Care Team Providers Care Welding Machine Operator Plasma Arc Name Role Phone Jefe Schwartz MD Primary Care Provider [phone] Encounter Details Date Type Department Care Team (Late st Contact Info) Description 03/17/2025 Maternal Screening [facility] NURSE CALL CENTER [address] [place] [phone] Ivanna Downing, RN Social History Tobacco Use Types Packs/Day Years Used Date Smoking Tobacco: Former Cigarettes Q uit: 01/2024 Passive Smoke Exposure: Past Smokeless Tobacco: Never Comments:Vape. Alcohol Use Standard Drinks/Week Comments Never 0 (1 standard drink = 0.6 oz pur e alcohol) [facility] Utilities Answer Date Recorded In the past 12 months has [facility] electric, gas, oil, or water company [...] and heating? Not hard at all 03/06/2025 [facility] [place] of Occupat ional Health - Occupational [...] things needed for daily living? No 03/06/2025 [place] Depression Scale Answer Date Recorded [place] Depression Scale Total 2 03/17/2025 The thought [...] none 03/06/2025 Family and Community Support Answer Jayosn e Recorded If for any reason you [...] GED or equivalent No 03/06/2025 Preferred Language Moldovan 03/06/2025 PHQ-2 Answer Date Recorded Patient Health [...] Miscellaneous Notes * Outreach Note - Ivanna Downing RN - 03/17/2025 9:11 AM EDT Maternal Screening Survey Flowsheet Row Responses Facility patient discharged from? [facility] Attempt successful? Yes Call start time 926 [...] harming myself has occurred to me. 0 [place] Depression Scale Total 2 Did any of [...] Visit [facility] OBGYN 1700 [facility] [address] [place] [address] Aydin Crowe MD 1700 [facility] [address] [place] [address] documented as of this encounter Visit Diagnoses Not on filedocumented in this encounter Care Teams Welding Machine Operator Plasma Arc Relationship Specialty Start Date End Date Jefe Schwartz MD 1210 [facility] [address] [facility] [address] [place] [address] PCP - General Adolescent Medicine 12/14/23 documented as of this encounter
--- OUTSIDE RECORDS SUMMARY | 2025-04-07 11:21 | XMS_ITS | Encounter Summary ---
Author Organization [facility] Address [address] [place] [address] Care Team Providers Care Creping Machine Operator Name Role Phone Jefe Schwartz MD Primary Care Provider [phone] Encounter Details Date Type Department Care Team (Late st Contact Info) Description 03/09/2025 Maternal Screening [facility] NURSE CALL CENTER [address] [place] [place] [phone] Aracelis Mueller, RN Social History Tobacco Use Types Packs/Day Years Used Date Smoking Tobacco: Former Cigarettes Q uit: 01/2024 Passive Smoke Exposure: Past Smokeless Tobacco: Never Comments:Vape. Alcohol Use Standard Drinks/Week Comments Never 0 (1 standard drink = 0.6 oz pur e alcohol) [facility] Utilities Answer Date Recorded In the past 12 months has [employer] electric, gas, oil, or water company threatened [...] and heating? Not hard at all 03/06/2025 [facility] [place] of Occupat ional Health - Occupational Stress [...] things needed for daily living? No 03/06/2025 [place] Depression Scale Answer Date Recorded [place] Depression Scale Total 8 03/06/2025 The thought [...] GED or equivalent No 03/06/2025 Preferred Language Sri Lankan 03/06/2025 PHQ-2 Answer Date Recorded Patient Health [...] Info) Description 04/17/2025 1:40 PM EDT Visit [facility] OBGYN [address] [facility] [address] [place] [address] Aydin Crowe MD [address]00 [facility] [address] [place] [address] documented as of this encounter Visit Diagnoses Not on filedocumented in this encounter Care Teams Creping Machine Operator Relationship Specialty Start Date End Date Jefe Schwartz MD 1210 [facility] [address] [place] [address] PCP - General Adolescent Medicine 12/14/23 documented as of this encounter
--- OUTSIDE RECORDS SUMMARY | 2025-04-07 11:22 | XMS_ITS | Encounter Summary ---
Author Organization [facility] Address [address] [place] [address] Care Team Providers Care Plant Puller Name Role Phone System, Provider Not In MD Primary Care Provider Unavailable Reason for Referral * Consultation (Routine) - Closed Specialty Diagnoses / Procedures Referred By Jeanne roberts Referred To Contact Nephrology Diagnoses Proteinuria complicating , unspecified trimester Izaiah Mcdaniels MD [address] [facility] [address] [place] [address] Phone: tel: fax: [facility] Nephrology, Bone & Mineral Metabolism [address] [facility], [address] [place] [address] Phone: tel: fax: Referral ID Status Reason Start Date Expiration Date V isits Requested Visits Authorized [id number] Closed Specialty Services Required 09/27/2024 03/29/2026 1 1 Encounter Details Date Type Department Care Team (Late st Contact Info) Description 09/27/2024 [facility] Orders [facility] [address] [place] [address] Izaiah Mcdaniels MD [address] [place] [address] Proteinuria complicating , unspecified trimester (Primary Dx) [...] EST Office Visit [facility] [address] [place] [phone] Duke White MD [address] [place] [address] Scheduled Referrals Name Type Priority Associated Diagnoses Orde r Schedule Ambulatory referral to Nephrology Outpatient Referral Routine Proteinuria complicating , unspecified trimester Expected: 09/27/2024 (Approximate), Expires: 03/27/2026 documented as of this encounter Visit Diagnoses Diagnosis Proteinuria complicating , unspecified trimester- Primary documented in this encounter Care Teams Plant Puller Relationship Specialty Start Date End Date System, Provider Not In, [place] [address] PCP - General Family Medicine 09/29/24 documented as of this encounter
--- OUTSIDE RECORDS SUMMARY | 2025-04-07 11:22 | XMS_ITS | Encounter Summary ---
Author Organization [facility] Address [address] [place] [address] Care Team Providers Care Blade Changer Name Role Phone Jefe Schwartz MD Primary Care Provider [phone] Encounter Details Date Type Department Care Team (Latest Contact Info) Description 03/06/2025 Travel Social History Tobacco Use Types Packs/Day Years Used Date Smoking Tobacco: Former Cigarettes Q uit: 01/2024 Passive Smoke Exposure: Past Smokeless Tobacco: Never Comments:Vape. Alcohol Use Standard Drinks/Week Comments Never 0 (1 standard drink = 0.6 oz pur e alcohol) [facility] Utilities Answer Date Recorded In the past 12 months has [employer] electric, gas, oil, or water company threatened [...] and heating? Not hard at all 03/06/2025 [facility] [place] of Occupat ional Health - Occupational Stress [...] things needed for daily living? No 03/06/2025 [place] Depression Scale Answer Date Recorded [place] Depression Scale Total 8 03/06/2025 The thought [...] GED or equivalent No 03/06/2025 Preferred Language Stateless 03/06/2025 PHQ-2 Answer Date Recorded Patient Health [...] 03/06/2025 12:42 AM Chelsy Chan RN * [place] Suicide Severity Rating Scale (Screener/Recent Self-Report) Question [...] Info) Description 04/17/2025 1:40 PM EDT Visit [facility] OBGYN 1700 [facility] [address] [place] [address] Aydin Crowe MD 1700 [facility] [address] [place] [address] documented as of this encounter Visit Diagnoses Not on filedocumented in this encounter Care Teams Blade Changer Relationship Specialty Start Date End Date Jefe Schwartz MD 1210 [facility] [address] [place] [address] PCP - General Adolescent Medicine 12/14/23 documented as of this encounter
[2025-04-07 11:33] VITALS: BP 114/62; PULSE 71; RESP 18; TEMP 36.7; O2SAT 98
[2025-04-07] MEDS: IRON SUCROSE COMPLEX 200 MG in 0.9 % SODIUM CHLORIDE 100 ML 220 MG IV (11:33)
[2025-04-07 12:10] VITALS: BP 100/54; PULSE 69
[2025-04-07] MEDS: SODIUM CHLORIDE 0.9% 10ML FLUSH SYRINGE 10 ML IV (12:15)
== END 2025-04-07 12:15 | disposition home or self-care (01) ==
LOC: INF 11:10
PROVIDERS: PCP Nurse Practitioner Family; Visit Provider Internal Medicine Medical Oncology
DX: D50.9 Iron deficiency anemia, unspecified (principal)
CPT/HCPCS: 96365; J1756

== ENCOUNTER 2025-04-12 08:56 | Outpatient (CLI) | payer OTHER, SELFPAY ==
--- OUTSIDE RECORDS SUMMARY | 2025-02-13 09:30 | XMS_ITS | Encounter Summary ---
Author Organization [facility] Address [address] [place] [id number] Care Team Providers Care Railroad Brake Repairer Name Role Phone Jefe Schwartz MD Primary Care Provider [phone] Reason for Referral * Diagnostic Imaging (Routine) - Closed Specialty Diagnoses / Procedures Referred By Contact Referred To Contact Obstetrics and Gynecology Diagnoses Poor growth affecting management of mother in third trimester, single or unspecified fetus Procedures [facility] Aydin Crowe MD 1700 [facility] [address] [place] [address] Phone: tel: fax: [facility] MATERNAL MEDICINE 1700 [facility] [address] [place] [phone] Phone: tel: fax: Referral ID Status Reason Start Date Expiration Date Visits Re quested Visits Authorized [id number] Closed 02/13/2025 05/15/2026 1 1 Reason for Visit * Reason Comments Routine Visit Non-stress Test Encounter Details Date Type Department Care Team (Late st Contact Info) Description 02/13/2025 9:30 AM EDT Routine [facility] OBGYN [address] [facility] [address] [place] [phone] Aydin Crowe MD 17[address] [facility] [address] [place], [place] [address] GA: 34w0d Social History Tobacco Use Types Packs/Day Years Used Date Smoking Tobacco: Former Cigarettes Q uit: 01/2024 Smokeless Tobacco: Never Comments:Vape. Alcohol Use Standard Drinks/Week Comments Never 0 (1 standard drink = 0.6 oz pur e alcohol) [facility] Utilities Answer Date Recorded In [...] and heating? Not hard at all 01/23/2025 [facility] of Occupat ional Health - [...] things needed for daily living? No 01/23/2025 [place] Depression Scale Answer Date Recorded Retired [place] Depression Score 11 02/23/2024 Retired EPD Scale: [...] GED or equivalent No 01/23/2025 Preferred Language Nepali 01/23/2025 PHQ-2 Answer Date Recorded Patient Health [...] below. Patient Active Problem List Diagnosis WPW (Rhpqc-Ofxbdilkh-Elpqw syndrome) SVT (supraventricular tachycardia) Herpes simplex type [...] Pending culture results from Dr. Cordero in [facility]. 10/11/2023 HSV 2 IgG positive; consistent with [...] elevated. >UA 6.5 11/09/2024 anomaly scan at [facility] Worsening of iron deficiency anemia. Hematocrit 27.8%. 1 hour glucose screen was borderline at 132. Should repeat at next visit. Relevant Orders POC Protein, Urine, Qualitative, Dipstick (Completed) POC Glucose, Urine, Qualitative, Dipstick (Completed) Poor growth affecting management of mother in third trimester Relevant Orders [facility] Other Visit Diagnoses care, third [...] EDT Visit [facility] OBGYN [address] [facility] [address] [place] [address] Aydin Crowe MD 1700 [facility] [address] [place] [address] documented as of this encounter Procedures Procedure [...] trimester documented in this encounter Results * [facility] (02/23/2025 2:44 PM EDT) Anatomical Region Laterality Modality Ultrasound 02/23/2025 2:19 PM EDT Narrative 02/23/2025 2:48 PM EDT PAT NAME: LISA RILEY [facility] REC#: [id number] DA: 2000 PAT GEND: F PAT TYPE: O EXAM JAYSON: [id number] REF PHYS AYDIN CROWE Comparison Studies The [...] EFW (oz) 11 oz EFW by: Hadlock (NCZ-QH-HL-FL) Extended Cav. septi pel. tr 5.9 mm [...] Normal Heart / Thorax 3-vessel view: Normal 0-dfsoda-chdsawk view: normal Stomach: Appears normal Kidneys: Appears [...] Recommend 37 week delivery. Coding ======= Description: 22925-55 Follow Up Ultrasound Description: 14168-62 BPP without NST Description: 94116-67 Doppler Umbilical Artery Electric Knife Operator: Destini Hall RDMS Physician: Medhat De Anda MD, FACOG Electronically signed by: Medhat De Anda MD, FACOG at: 14:48 Procedure Note Medhat De Anda MD - 02/23/2025 PAT NAME: LISA RILEY [facility] REC#: [id number] DA: 2000 PAT GEND: F PAT TYPE: O EXAM JAYSON: [id number] REF PHYS AYDIN CROWE Comparison Studies The findings of this study are compared to the prior ultrasound studydated 01/25/25. Patient Status Outpatient Indication ======== contractions. CHTN. Chronic proteinuria. Maternal Ghosh ParkinsonWhite. Hx PTD 35 wk - preeclampsia. Morbid obesity BMI 47 Maternal Assessment Qdkgjo223 cm Brwyva923 kg Weight (lb)273 lb BMI47.19 kg/m Method ======= Transabdominal ultrasound examination. View: Limited by patient bodyhabitus ========= Schwarz . Number of fetuses: 1 Dating ====== Cycle:irregular cycle GA by prior izgxgnzjgb63 w + 3 d CNOG by prior assessment:03/27/2025 Previous Ultrasound on:07/25/2024 Type [...] GA35 w + 3 d Assigned CONG:03/27/2025 d Biometry Standard BPD85.5 mm 34w 3d 27% Hadlock HOJ746.7 mm 36w 6d 79% Van HC315.5 mm 35w 3d 18% Hadlock Cerebellum tr45.4 mm 34w 6d 27% Hill AC313.1 mm 35w 2d 53% Hadlock Femur67.2 mm 34w 4d 22% Hadlock Gdkpnip10.2 mm 34w 2d 40% Van HC / AC1.01 EFW2,567 g 34w 6d 37% Hadlock EFW (lb)5 lb EFW (oz)11 oz EFW by:Hadlock (AOH-OU-JN-FL) Extended Cav. septi pel. tr5.9 mm CM6.7 mm 26% Nicolaides Head / Face / Neck Cephalic index0.77 14% Nicolaides Extremities / Bony Struc FL / BPD0.79 FL / HC0.21 FL / AC0.21 Other Structures DIX028 bpm General Evaluation Cardiac activity present. FHR 177 bpm. movements present. Presentation cephalic. Placenta Placental site: posterior, fundal. Amniotic fluid Amount of AF: normal. MVP 4.8 cm. ELIZABETH 13.6 cm. Q1 3.2 cm,Q2 4.8 cm, Q3 3.4 cm, Q4 2.3 cm. Anatomy Cranium:Normal Cavum septi pellucidi:Normal Cerebellum:Normal Cisterna magna:Normal 4-chamber view:Appears normal RVOT view:Normal LVOT view:Normal Heart / Thorax 3-vessel view:Normal 9-solary-rnxzngn view:normal Stomach:Appears normal Kidneys:Appears normal Bladder:Appears normal [...] indicated. Recommend 37 week delivery. Coding ======= Description:24945-14 Follow Up Ultrasound Description:30486-90 BPP without NST Description:85493-46 Doppler Umbilical Artery Electric Knife Operator: Destini Hall RDMS Physician: Medhat De Anda MD, FACOG Electronically signed by: Medhat De Anda MD, FACOG at: 14:48 us Aydin Crowe MD IMG US ORDERABLES Final Result * Group B Streptococcus Culture - Swab, Vaginal/Rectum (02/13/2025 6:55 PM EDT) Group B Strep Culture No Group B Streptococcus isolated SEAN 02/16/2025 10:43 AM EDT [facility] Swab Rectum and vagina, CS / Unknown Collection / Unknown 02/13/2025 6:55 PM EDT 02/13/2025 6:55 PM EDT us Aydin Crowe MD MICROBIOLOGY - GENERAL ORDERABL ES Final Result [facility]
[address] [place] [id number], [place] [phone] * POC Glucose, Urine, Qualitative, Dipstick (02/13/2025 10:16 AM EDT) Glucose, UA Negative Negative mg/dL [facility] Urine 02/13/2025 10:1 6 AM EDT us Aydin Crowe MD POINT OF CARE TEST ORDERABLES F inal Result Performing Organization Address [facility]/State/ZIP Co de Phone Number [facility]
[address] [place] [address], [place] [phone] * POC Protein, Urine, Qualitative, Dipstick (02/13/2025 10:16 AM EDT) Protein, POC Negative Negative mg/dL [facility] Lot Number 0 [facility] Expiration Date 0 [facility] Urine 02/13/2025 10:1 6 AM EDT us Aydin Crowe MD POINT OF CARE TEST ORDERABLES F inal Result [facility]
[address] [place] [address], [place] [phone] * Procedure Scanned (02/13/2025) us Aydin Crowe [...] - 02/14/2025 8:09 PM EDT Performed at: [address] [place] [id number] Construction Driver: Alice Soriano MD, Phone: [phone] us Aydin Crowe MD MICROBIOLOGY - GENERAL ORDERABL ES Final Result Performing Organization Address City/[facility]/ZIP Co de Phone Number [facility] [address] [place] [address], [place] [phone] [facility] [address] [place] [address], [place] [phone] documented in this encounter Visit Diagnoses Diagnosis [...] fetus documented in this encounter Care Teams Railroad Brake Repairer Relationship Specialty Start Date End Date Jefe Schwartz MD 1210 [facility] [address] [place] [address] PCP - General Adolescent Medicine 12/14/23 documented as of this encounter
--- OUTSIDE RECORDS SUMMARY | 2025-02-13 19:05 | XMS_ITS | Encounter Summary ---
Author Organization [facility] Address [address] [place] [address] Care Team Providers Care Online Journalist Name Role Phone Jefe Schwartz MD Primary Care Provider [phone] Encounter Details Date Type Department Care Team (Late st Contact Info) Description 02/13/2025 7:05 PM EDT Lab [facility] [address] [place] [phone] care, third trimester Social History Tobacco Use Types Packs/Day Years Used Date Smoking Tobacco: Former Cigarettes Q uit: 01/2024 Smokeless Tobacco: Never Comments:Vape. Alcohol Use Standard Drinks/Week Comments Never 0 (1 standard drink = 0.6 oz pur e alcohol) [facility] Utilities Answer Date Recorded In the past 12 months has [employer] electric, gas, oil, or water company threatened to shut off services in your home? No 02/18/2025 AUDIT-C Answer Date Recorded Q1: How often do you have a drink containing alcohol? Never 02/18/2025 Q2: How many drinks containi ng alcohol do you have on a typical day when you are drinking? Patient does not drink Q3: How often do you have si x or more drinks on one occasion? Never 02/18/2025 Overall Financial Resource Strain (CARDIA) Answe r Date Recorded How hard is it for you to pa y for the very basics like food, housing, medical care, and heating? Not hard at all 02/18/2025 [facility] of Occupat ional Health - Occupational Stress Questionnaire Answer Date Recorded Do you feel stress - tense, restless, nervous, or anxious, or unable to sleep at night because your mind is troubled all the time - these days? Not at all 02/18/2025 Exercise Vital Sign Answer Date Recorde d On average, how many days pe r week do you engage in moderate to strenuous exercise (like a brisk walk)? 7 days 02/18/2025 On average, how many minutes do you engage in exercise at this level? 20 min 02/18/2025 Hunger Vital Sign Answer Date Recorded Within the past 12 months, y ou worried that your food would run out before you got the money to buy more. Never true 02/19/20 25 Within the past 12 months, t he food you bought just didn't last and you didn't have money to get more. Never true 02/18/2025 PRAPARE - Transportation Answer Date Re corded In the past 12 months, has l ack of transportation kept you from medical appointments or from getting medications? No 02/07 In the past 12 months, has l ack of transportation kept you from meetings, work, or from getting things needed for daily living? No 02/18/2025 [facility] Depression Scale Answer Date Recorded Retired [facility] Depression Score 11 02/23/2024 Retired EPD Scale: Thought of Harming Self Unrec ognized value 02/23/2024 Abuse Screen Answer Date Recorded Feels Unsafe at Home or Work/School no 02/18/2025 Feels Threatened by Someone no 02/07 Does Anyone Try to Keep You From Having Contact with Others or Doing Things Outside Your Home? no 02/18/2025 Physical Signs of Abuse Present no 02/18/2025 Housing Stability Answer Date Recorded Current Living Arrangements home 02/07 Potentially Unsafe Housing Conditions none 02/18/2025 Family and Community Support Answer Jayson e Recorded If for any reason you need h elp with day-to-day activities such as bathing, preparing meals, shopping, managing finances, etc., do you get the help you need? I don't need any help 02/18/2025 How often do you feel lonely or isolated from those around you? Never 02/18/2025 Employment Answer Date Recorded Do you want help finding or keeping work or a job? I do not need or want help 02/18/2025 Disabilities Answer Date Recorded Difficulty Concentrating, Remembering or Making Decisions no 02/18/2025 Difficulty Managing Errands Independently no 02/18/2025 Education Answer Date Recorded Do you want help with school or training? For example, starting or completing job training or getting a high school diploma, GED or equivalent No 02/18/2025 Preferred Language [place]er 02/18/2025 PHQ-2 Answer Date Recorded Patient Health Questionnaire-2 Score 0 02/18/2025 Education Answer Date Recorded What is the [...] Info) Description 04/17/2025 1:40 PM EDT Visit [facility] OBGYN [address] [phone] Aydin Crowe MD [address] [address] documented as of this encounter Procedures Procedure Name Priority Date/Time Associated Diagnosis Comments GROUP B STREPTOCOCCUS CULTURE Routine 02/13/2025 6:55 PM EDT care, third trimester documented in this encounter Results * Group B Streptococcus Culture - Swab, Vaginal/Rectum (02/13/2025 6:55 PM EDT) Group B Strep Culture No Group B Streptococcus isolated SEAN 02/16/2025 10:43 AM EDT [facility] Swab Rectum and vagina, CS / Unknown Collection / Unknown 02/13/2025 6:55 PM EDT 02/13/2025 6:55 PM EDT Aydin Crowe MD MICROBIOLOGY - GENERAL ORDERABL ES Final Result [facility]
[address] [place] [address], documented in this encounter Visit Diagnoses Diagnosis care, third trimester documented in this encounter Care Teams Online Journalist Relationship Specialty Start Date End Date Jefe Schwartz MD [facility] [address] [facility] [address] [place] [address] PCP - General Adolescent Medicine 12/14/23 documented as of this encounter
--- OUTSIDE RECORDS SUMMARY | 2025-02-16 14:15 | XMS_ITS | Encounter Summary ---
Author Organization [facility] Address [address] [place] [address] Care Team Providers Care Advanced Quality Engineer Name Role Phone Jefe Schwartz MD Primary Care Provider [phone] Reason for Referral * OBGYN (Routine) - Authorized Specialty Diagnoses / Procedures Referred By Contact Referred To Contact Obstetrics and Gynecology Diagnoses care, third trimester 34 weeks gestation of Chronic hypertension affecting Procedures Nonstress Test Kartik Maurice APRN [address] [place] [address] Phone: tel: fax: [facility] [address] [address] Phone: tel: fax: Referral ID Status Reason Start Date Expiration Date V isits Requested Visits Authorized [id number] Authorized 02/16/2025 05/18/2026 1 1 Reason for Visit * Reason Comments Non-stress Test Routine Visit Encounter Details Date Type Department Care Team (Late st Contact Info) Description 02/16/2025 2:15 PM EDT Routine [facility] [address] [address] Kartik Maurice APRN [address] [place] [id number] [place]: 34w3d Social History Tobacco Use Types Packs/Day Years Used Date Smoking Tobacco: Former Cigarettes Q uit: 01/2024 Smokeless Tobacco: Never Comments:Vape. Alcohol Use Standard Drinks/Week Comments Never 0 (1 standard drink = 0.6 oz pur e alcohol) [facility] Utilities Answer Date Recorded In the past 12 months has th e [employer], gas, oil, or water [employer] threatened to shut off services in your [...] and heating? Not hard at all 01/23/2025 [facility] [place] of Occupat ional Health - Occupational Stress [...] things needed for daily living? No 01/23/2025 [place] Depression Scale Answer Date Recorded Retired [place] Depression Score 11 02/23/2024 Retired EPD Scale: [...] GED or equivalent No 01/23/2025 Preferred Language Croatian 01/23/2025 PHQ-2 Answer Date Recorded Patient Health [...] below. Patient Active Problem List Diagnosis WPW (Wwpbd-Exovjgjqa-Qnhkm syndrome) SVT (supraventricular tachycardia) Herpes simplex type [...] information as entered above. Kartik Patrick Maurice, MID LEVEL DEVELOPER BP 118/70 Wt 122 kg (269 lb 12.8 oz) LMP 05/24/2024 BMI 44.90 kg/m?? EXAM: Vitals BP: 118/70 Weight: 122 kg (269 lb 12.8 oz) Heart Rate: NST+ Dilation/Effacement/Station Dilation: 3 Effacement (%): 60 Urine Glucose Read-only: Negative Urine Protein Read-only: Negative Assessment and Plan Problem List Items Addressed This Visit WPW (Ggcyv-Xobiljhja-Nojuh syndrome) Overview Dr. Fernando in [place] Echo & 2 week holter monitor in August 2023 wnl per patient. [facility] appt 11/04; ultrasound within normal limits and normal growth. EFW 57%. No follow-up ultrasound scheduled. Relevant Medications labetalol (NORMODYNE) 100 MG tablet Herpes simplex type 2 (HSV-2) infection affecting , antepartum Overview Pending culture results from Dr. Cordero in [facility]. 10/11/2023 HSV 2 IgG positive; consistent with recurrent HSV2. Rx valtrex For suppression 500 mg daily. Relevant Medications valACYclovir (VALTREX) 500 MG tablet Obesity in , antepartum Overview BMI 44 Anomaly scan at [facility]. History of pre-eclampsia in prior , [...] Info) Description 04/17/2025 1:40 PM EDT Visit [facility] [address] [place] [address] Aydin Crowe MD [address] [facility] [address] [place] [address] Scheduled Orders Name Type Priority Associated Diagnoses [...] PM EDT) Glucose, UA Negative Negative mg/dL [facility] Urine 02/16/2025 2:35 PM EDT us Kartik Maurice APRN POINT OF CARE TEST O RDERABLES Final Result [facility]
[address] [place] [address], * POC Protein, Urine, Qualitative, Dipstick (02/16/2025 2:35 PM EDT) Protein, POC Negative Negative mg/dL [facility] Lot Number 0 [facility] Expiration Date 0 [facility] Urine 02/16/2025 2:35 PM EDT Kartik Maurice APRN POINT OF CARE TEST O RDERABLES Final Result [facility]
[address] [place] [address], [place] [phone] * Procedure Scanned (02/16/2025) Kartik Maurice APRN PROCEDURE/MINOR SURG ICAL ORDERABLES Final Result documented in this encounter Visit Diagnoses Diagnosis care, third trimester- Primary 34 weeks gestation of Chronic hypertension affecting WPW (Sdqwu-Mbjqbiaan-Sfkao syndrome) Anomalous atrioventricular excitation Obesity in , [...] classified documented in this encounter Care Teams Advanced Quality Engineer Relationship Specialty Start Date End Date Jefe Schwartz MD [address] [place] [address] [address] [facility] [address] [place] [address] PCP - General Adolescent Medicine 12/14/23 documented as of this encounter
--- OUTSIDE RECORDS SUMMARY | 2025-02-18 22:19 | XMS_ITS | Encounter Summary ---
Author Organization [facility] Address [address] [place] [address] Care Team Providers Care Reinforcing Steel Erector Name Role Phone Jefe Schwartz MD Primary Care Provider [phone] Reason for Visit * Reason Comments Contractions * Auth/Cert (Routine) Specialty Diagnoses / Procedures Referred By Contac t Referred To Contact Diagnoses labor in third trimester with delivery Referral ID Status Reason Start Date Expiration Date Visits Re quested Visits Authorized [id number] 1 1 Encounter Details Date Type Department Care Team (Late st Contact Info) Description 02/18/2025 10:19 PM EDT - 02/19/2025 8:03 AM EDT Hospital Encounter [facility] [address] [place] [address] Aydin Crowe MD [address] [place] [id number] Gerardo Diaz MD [address] [address] Discharge Disposition: Home or Self Care Social History Tobacco Use Types Packs/Day Years Used Date Smoking Tobacco: Former Cigarettes Q uit: 01/2024 Smokeless Tobacco: Never Tobacco Cessation:Counseling Given: No Comments:Vape. Alcohol Use Standard Drinks/Week Comments Never 0 (1 standard drink = 0.6 oz pur e alcohol) [facility] Utilities Answer Date Recorded In the past 12 months has [employer], [employer], or [employer] threatened to shut off services in your [...] and heating? Not hard at all 02/18/2025 [facility] - Occupational Stress Questionnaire [...] things needed for daily living? No 02/18/2025 [place] Depression Scale Answer Date Recorded Retired [place] Depression Score 11 02/23/2024 Retired EPD Scale: [...] GED or equivalent No 02/18/2025 Preferred Language Malagasy 02/18/2025 PHQ-2 Answer Date Recorded Patient Health [...] 10:41 PM EDT Lalito Evans RN * [place] Suicide Severity Rating Scale (Screener/Recent Self-Report) Question [...] Discussed plan to follow-up with her primary ORTHODONTIC TECHNICIAN ASSISTANT tomorrow and return to clinic with bleeding [...] through Care Everywhere. * Third Trimester of (Malagasy) documented in this encounter Medications at Time [...] from the original note were not included. [facility] Obstetric History and Physical Referring Provider: Aydin [...] at [address] 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 Anemia 28 weeks hematocrit 29%.: on iron. PDC u/s 30 wk; EFW 57% Growth ultrasound 12/01 EFW 48%. AC 66%. Psoriatic arthritis [address] Petit, then insurance not covered there, has appt with dermatology in [place] Pustular psoriasis Spontaneous vaginal delivery 12/14/2023 Urinary tract infection I have had utis on and off during Cchvj-Hdhvdynlj-Pzsiw syndrome 10/26/2023 ablation 2019- dx at 16 [...] Method: sterile vaginal exam performed ([facility]) Dilation: 4cm Effacement: Cervical Effacement: 50 Station: [...] soft by palpation Resting Tone by [facility]: [place] Units: Laboratory Results: Lab Results (last 24 hours) Procedure Component Value Units Date/Time Comprehensive Metabolic Panel [[id number]] (Abnormal) Collected: 02/18/252346 Specimen: Blood Updated: 02/19/25 [...] race as a factor CBC (No Diff) [[id number]] (Abnormal) Collected: 02/18/25 2347 Specimen: Blood Updated: [...] 02/18/2025 11:02 PM EDT Lisa Trevino 2000 [id number] CC: contractions HPI: Patient is 24 y.o. [...] [facility] OBGYN [address] [facility] [address] [place] [address] Aydin Crowe MD [address]00 [facility] [address] [place] [address] documented as of this encounter Procedures Procedure Name Priority Date/Time Associated Diagnosis Comments CBC (NO DIFF) Urgent 02/18/2025 11:47 PM EDT TYPE AND SCREEN Urgent 02/18/2025 11:47 PM EDT COMPREHENSIVE METABOLIC PANEL Urgent 02/18/2025 11:47 PM EDT documented in this encounter Results * Type & Screen (02/18/2025 11:47 PM EDT) ABO Type A 02/19/2025 12:30 AM EDT [facility] RH type Positive 02/19/2025 12:30 AM EDT [facility] Antibody Screen Negative 02/19/2025 12:30 AM EDT [facility] T&S Expiration Date 02/21/2025 11:59:59 PM 02/19/2025 12:30 AM EDT [facility] Blood Line / Unknown 02/18/2025 11 :47 PM EDT 02/18/2025 11:53 PM EDT Jose Wilcox MD BLOOD BANK TEST ORDERABLES Edit ed Result - Final [facility]
[address] [place] [address], * (ABNORMAL) Comprehensive Metabolic Panel (02/18/2025 11:47 PM EDT) Glucose 71 65 - 99 mg/dL 02/19/2025 12:32 AM EDT [facility] BUN 8.9 6.0 - 20.0 mg/dL 02/19/2025 12:32 AM EDT [facility] Creatinine 0.86 0.57 - 1.00 mg/dL 02/19/2025 12:32 AM EDT [facility] Sodium 137 136 - 145 mmol/L 02/19/2025 12:32 AM EDT [facility] Potassium 3.6 3.5 - 5.2 mmol/L 02/19/2025 12:32 AM EDT [facility] Chloride 105 98 - 107 mmol/L 02/19/2025 12:32 AM EDT [facility] CO2 20.5(L) 22.0 - 29.0 mmol/L 02/19/2025 12:32 AM EDT [facility] Calcium 8.7 8.6 - 10.5 mg/dL 02/19/2025 12:32 AM EDT [facility] Total Protein 6.0 6.0 - 8.5 g/dL 02/19/2025 12:32 AM EDT [facility] Albumin 3.2(L) 3.5 - 5.2 g/dL 02/19/2025 12:32 AM EDT [facility] ALT (SGPT) 31 1 - 33 U/L 02/19/2025 12:32 AM EDT [facility] AST (SGOT) 17 1 - 32 U/L 02/19/2025 12:32 AM EDT [facility] Alkaline Phosphatase 91 39 - 117 U/L 02/19/2025 12:32 AM EDT [facility] Total Bilirubin 0.6 0.0 - 1.2 mg/dL 02/19/2025 12:32 AM EDT [facility] Globulin 2.8 gm/dL 02/19/2025 12:32 AM EDT [facility] Comment:Calculated Result A/G Ratio 1.1 g/dL 02/19/2025 12:32 AM EDT [facility] BUN/Creatinine Ratio 10.3 7.0 - 25.0 02/19/2025 12:32 AM EDT [facility] Anion Gap 11.5 5.0 - 15.0 mmol/L 02/19/2025 12:32 AM EDT [facility] eGFR 96.9 >60.0 mL/min/1.7 3 02/19/2025 12:32 AM EDT [facility] Blood Line / Unknown 02/18/2025 11 :47 PM EDT 02/19/2025 12:04 AM EDT [facility] - 02/19/2025 12:32 AM EDT GFR [...] MD LAB BLOOD ORDERABLES Final Resu lt [facility]
[address] [place] [address], * (ABNORMAL) CBC (No Diff) (02/18/2025 11:47 PM EDT) WBC 10.04 3.40 - 10.80 10*3/mm3 02/19/2025 12:11 AM EDT [facility] RBC 3.37(L) 3.77 - 5.28 10*6/mm3 02/19/2025 12:11 AM EDT [facility] Hemoglobin 9.0(L) 12.0 - 15.9 g/dL 02/19/2025 12:11 AM EDT [facility] Hematocrit 28.3(L) 34.0 - 46.6 % 02/19/2025 12:11 AM EDT [facility] MCV 84.0 79.0 - 97.0 fL 02/19/2025 12:11 AM EDT [facility] MCH 26.7 26.6 - 33.0 pg 02/19/2025 12:11 AM EDT [facility] MCHC 31.8 31.5 - 35.7 g/dL 02/19/2025 12:11 AM EDT [facility] RDW 15.4 12.3 - 15.4 % 02/19/2025 12:11 AM EDT [facility] RDW-SD 46.4 37.0 - 54.0 fl 02/19/2025 12:11 AM EDT [facility] MPV 11.2 6.0 - 12.0 fL 02/19/2025 12:11 AM EDT [facility] Platelets 248 140 - 450 10*3/mm3 02/19/2025 12:11 AM EDT [facility] Blood Line / Unknown 02/18/2025 11 :47 PM EDT 02/19/2025 12:08 AM EDT us Jose Wilcox MD LAB BLOOD ORDERABLES Final Resu lt [facility]
[address] [place] [address], documented in this encounter Visit Diagnoses Diagnosis [...] 100mL/hr. documented in this encounter Care Teams Reinforcing Steel Erector Relationship Specialty Start Date End Date Jefe Schwartz MD [facility] [address] [id number] PCP - General Adolescent Medicine 12/14/23 documented as of this encounter
--- OUTSIDE RECORDS SUMMARY | 2025-02-20 09:50 | XMS_ITS | Encounter Summary ---
Author Organization [facility] Address [address] [place] [address] Care Team Providers Care Boat Builder And Repairer Name Role Phone Jefe Schwartz MD Primary Care Provider [phone] Reason for Visit * Reason Comments Routine Visit Non-stress Test 35w0d Encounter Details Date Type Department Care Team (Late st Contact Info) Description 02/20/2025 9:50 AM EDT Routine [facility] OBGYN [address] [phone] Aydin Crowe MD [address] [place] [address] GA: 35w0d Social History Tobacco Use Types Packs/Day Years Used Date Smoking Tobacco: Former Cigarettes Q uit: 01/2024 Smokeless Tobacco: Never Comments:Vape. Alcohol Use Standard Drinks/Week Comments Never 0 (1 standard drink = 0.6 oz pur e alcohol) [facility] Utilities Answer Date Recorded In the past 12 months has [employer], gas, oil, or water [employer] threatened to shut off services in your [...] and heating? Not hard at all 02/18/2025 [facility]at ional [facility] - Occupational Stress Questionnaire Answer Date [...] things needed for daily living? No 02/18/2025 [place] Depression Scale Answer Date Recorded Retired [place] Depression Score 11 02/23/2024 Retired EPD Scale: [...] GED or equivalent No 02/18/2025 Preferred Language South African 02/18/2025 PHQ-2 Answer Date Recorded Patient Health [...] 130s/80s. Patient Active Problem List Diagnosis WPW (Rgwaw-Yogswnicc-Mkodh syndrome) SVT (supraventricular tachycardia) Herpes simplex type [...] antepartum Overview BMI 44 Anomaly scan at [facility]. History of pre-eclampsia in prior , currently [...] EDT Visit [facility] OBGYN [address] [facility] [address] [place] [address] Aydin Crowe MD [address] [facility] [address] [place] [address] documented as of this encounter Procedures Procedure Name Priority Date/Time Associated Diagnosis Comments POCT URINALYSIS DIPSTICK, MANUAL Routine 02/20/2025 10:32 AM EDT care, antepartum, unspecified SCANNED - PROCEDURE 02/20/2025 documented in this encounter Results * POC Urinalysis Dipstick (02/20/2025 10:32 AM EDT) Glucose, UA Negative Negative mg/dL [facility] Protein, POC Negative Negative mg/dL [facility] Urine 02/20/2025 10:3 2 AM EDT us Aydin Crowe MD POINT OF CARE TEST ORDERABLES F inal Result [facility]
[address] [place] [address], [place] [phone] * Procedure Scanned (02/20/2025) us Aydin Crowe [...] complication documented in this encounter Care Teams Boat Builder And Repairer Relationship Specialty Start Date End Date Jefe Schwartz MD [facility] [place] [address] [address] PCP - General Adolescent Medicine 12/14/23 documented as of this encounter
--- OUTSIDE RECORDS SUMMARY | 2025-02-23 14:03 | XMS_ITS | Encounter Summary ---
Author Organization [facility] Address [address] [place] [address] Care Team Providers Care Deck Engineer Name Role Phone Jefe Schwartz MD Primary Care Provider [phone] Reason for Referral * Diagnostic Imaging (Routine) - Closed Specialty Diagnoses / Procedures Referred By Contact Referred To Contact Obstetrics and Gynecology Diagnoses Poor growth affecting management of mother in third trimester, single or unspecified fetus Procedures [facility] Diagnostic [place] Aydin Crowe MD [address] [place] [address] Phone: tel: fax: [facility]ERNAL [facility] [address] [place] [phone] Phone: tel: fax: Referral ID Status Reason Start Date Expiration Date Visits Re quested Visits Authorized [id number] Closed 02/13/2025 05/15/2026 1 1 Reason for Visit * Diagnostic Imaging (Routine) - Closed Specialty Diagnoses / Procedures Referred By Contact Referred To Contact Obstetrics and Gynecology Diagnoses Poor growth affecting management of mother in third trimester, single or unspecified fetus Procedures [facility] Diagnostic [place] Aydin Crowe MD [address] [place] [address] Phone: tel: fax: [facility] [address] [facility] [address] [place] [address] Phone: tel: fax: Referral ID Status Reason Start Date Expiration Date Visits Re quested Visits Authorized [id number] Closed 02/13/2025 05/15/2026 1 1 Encounter Details Date Type Department Care Team (Late st Contact Info) Description 02/23/2025 2:03 PM EDT - 02/23/2025 11:59 PM EDT Hospital [facility] [address] [place] [phone] Aydin Crowe MD [address] [facility] [address] [place] [address] Poor growth affecting management of mother in third trimester, single or unspecified fetus Discharge Disposition: Home or Self Care Social History Tobacco Use Types Packs/Day Years Used Date Smoking Tobacco: Former Cigarettes Q uit: 01/2024 Smokeless Tobacco: Never Comments:Vape. Alcohol Use Standard Drinks/Week Comments Never 0 (1 standard drink = 0.6 oz pur e alcohol) [facility] Utilities Answer Date Recorded In the past 12 months has [employer], gas, oil, or water [employer] threatened to shut off services in your [...] heating? Not hard at all 02/18/2025 [facility] of Occupat ional Health - Occupational Stress [...] things needed for daily living? No 02/18/2025 [place] Depression Scale Answer Date Recorded Retired [place] Depression Score 11 02/23/2024 Retired EPD Scale: [...] GED or equivalent No 02/18/2025 Preferred Language Macedonian 02/18/2025 PHQ-2 Answer Date Recorded Patient Health [...] Info) Description 04/17/2025 1:40 PM EDT Visit [facility] [address] [place] [address] Aydin Crowe MD [address] [place] [facility] [address] [place] [address] documented as of this encounter Procedures Procedure Name Priority Date/Time Associated Diagnosis Comments [facility] Routine 02/23/2025 2:44 PM EDT Poor growth affecting management of mother in third trimester, single or unspecified fetus documented in this encounter Results * [facility] (02/23/2025 2:44 PM EDT) Anatomical Region Laterality Modality Ultrasound 02/23/2025 2:19 PM EDT Narrative 02/23/2025 2:48 PM EDT PAT NAME: LISA RILEY [facility] REC#: [id number] DA: 2000 PAT GEND: F PAT TYPE: O EXAM JAYSON: [id number] REF PHYS YADIN CROWE Comparison Studies The findings of this [...] EFW (oz) 11 oz EFW by: Hadlock (FYO-AM-AR-FL) Extended Cav. septi pel. tr 5.9 mm [...] Normal Heart / Thorax 3-vessel view: Normal 6-alhbno-pcvfdzh view: normal Stomach: Appears normal Kidneys: Appears [...] Recommend 37 week delivery. Coding ======= Description: 20428-77 Follow Up Ultrasound Description: 95864-98 BPP without NST Description: 57058-04 Doppler Umbilical Artery Bias Binding Cutter: Destini Hall RDMS Physician: Medhat De Anda MD, FACOG Electronically signed by: Medhat De Anda MD, FACOG at: 14:48 Procedure Note Medhat De Anda MD - 02/23/2025 PAT NAME: LISA RILEY MED REC#: [id number] DA: 2000 PAT GEND: F PAT TYPE: O EXAM JAYSON: [id number] REF PHYS CASIMIRO AYDIN Comparison Studies The findings of this study are compared to the prior ultrasound studydated 01/25/25. Patient Status Outpatient Indication ======== contractions. CHTN. Chronic proteinuria. Maternal Ghosh ParkinsonWhite. Hx PTD 35 wk - preeclampsia. Morbid obesity BMI 47 Maternal Assessment Wmiyvs590 cm Jpjjws835 kg Weight (lb)273 lb BMI47.19 kg/m Method ======= Transabdominal ultrasound examination. View: Limited by patient bodyhabitus ========= Schwarz . Number of fetuses: 1 Dating ====== Cycle:irregular cycle GA by prior [id number] w + 3 d CONG by prior [...] GA35 w + 3 d Assigned CONG:03/27/2025 vouzcp539 d Biometry Standard BPD85.5 mm 34w 3d 27% Hadlock WMI115.7 mm 36w 6d 79% Van HC315.5 mm 35w 3d 18% Hadlock Cerebellum tr45.4 mm 34w 6d 27% Hill AC313.1 mm 35w 2d 53% Hadlock Femur67.2 mm 34w 4d 22% Hadlock Ulyibkv52.2 mm 34w 2d 40% Van HC / AC1.01 EFW2,567 g 34w 6d 37% Hadlock EFW (lb)5 lb EFW (oz)11 oz EFW by:Hadlock (HPA-QE-BO-FL) Extended Cav. septi pel. tr5.9 mm CM6.7 mm 26% Nicolaides Head / Face / Neck Cephalic index0.77 14% Nicolaides Extremities / Bony Struc FL / BPD0.79 FL / HC0.21 FL / AC0.21 Other Structures CFR144 bpm General Evaluation Cardiac activity present. FHR 177 bpm. movements present. Presentation cephalic. Placenta Placental site: posterior, fundal. Amniotic fluid Amount of AF: normal. MVP 4.8 cm. ELIZABETH 13.6 cm. Q1 3.2 cm,Q2 4.8 cm, Q3 3.4 cm, Q4 2.3 cm. Anatomy Cranium:Normal Cavum septi pellucidi:Normal Cerebellum:Normal Cisterna magna:Normal 4-chamber view:Appears normal RVOT view:Normal LVOT view:Normal Heart / Thorax 3-vessel view:Normal 6-mblpsj-mtyxpid view:normal Stomach:Appears normal Kidneys:Appears normal Bladder:Appears normal [...] indicated. Recommend 37 week delivery. Coding ======= Description:28716-63 Follow Up Ultrasound Description:50025-88 BPP without NST Description:50546-38 Doppler Umbilical Artery Bias Binding Cutter: Destini Hall RDMS Physician: Medhat De Anda MD, FACOG Electronically signed by: Medhat De Anda MD, FACOG at: 14:48 us Aydin Crowe MD [facility] [place] ORDERABLES Final Result documented in this encounter Visit Diagnoses Diagnosis Poor growth affecting management of mother in third trimester, single or unspecified fetus documented in this encounter Care Teams Deck Engineer Relationship Specialty Start Date End Date Jefe Schwartz MD [address] [place] [facility] [address] [facility] [address] [facility] [address] PCP - General Adolescent Medicine 12/14/23 documented as of this encounter
--- OUTSIDE RECORDS SUMMARY | 2025-02-23 14:15 | XMS_ITS | Encounter Summary ---
Author Organization [facility] Address [address] [place] [address] Care Team Providers Care Subcontract Administrator Name Role Phone Jefe Schwartz MD Primary Care Provider [phone] Reason for Visit * Reason Comments CHTN; proteinuria; contractions; IUGR Encounter Details Date Type Department Care Team (Late st Contact Info) Description 02/23/2025 2:15 PM EDT Office Visit [facility] MATERNAL MEDICINE [address] [place] [phone] Medhat De Anda MD [address] [facility] [address] [place] [address] Chronic hypertension affecting (Primary Dx); Poor growth affecting management of mother in third trimester, single or unspecified fetus Social History Tobacco Use Types Packs/Day Years Used Date Smoking Tobacco: Former Cigarettes Q uit: 01/2024 Smokeless Tobacco: Never Comments:Vape. Alcohol Use Standard Drinks/Week Comments Never 0 (1 standard drink = 0.6 oz pur e alcohol) [facility] Utilities Answer Date Recorded In the past 12 months has [employer], gas, oil, or water company threatened to [...] and heating? Not hard at all 02/18/2025 [facility] [place] of Occupat ional Health - Occupational Stress [...] things needed for daily living? No 02/18/2025 [place] Depression Scale Answer Date Recorded Retired [place] Depression Score 11 02/23/2024 Retired EPD Scale: [...] GED or equivalent No 02/18/2025 Preferred Language Setswana 02/18/2025 PHQ-2 Answer Date Recorded Patient Health [...] Sign Reading Time Taken Comments Blood Pressure 146/70 02/23/2025 2:11 PM EDT 121 /60 Pulse - - Temperature - - Respiratory Rate - - Oxygen Saturation - - Inhaled Oxygen Concentration - - Weight 124 kg (272 lb 12.8 oz) 02/23/2025 2:11 P M EDT Height - - Body Mass Index 45.4 02/18/2025 10:39 PM EDT documented in this encounter Progress Notes * Medhat De Anda MD - 02/23/2025 2:26 PM EDTAssociated Problem(s): Poor growth affecting management of mother in third trimester Patient presents for follow-up growth ultrasound secondary to IUGR. Today's ultrasound shows normalgrowth with normal amniotic fluid. Given the combination of previously poor growth and chronic hypertension would recommend delivery at 37 to 38 weeks. * Medhat De Anda MD - 02/23/2025 2:26 PM EDTAssociated Problem(s): Chronic hypertension affecting Patient presents for follow-up ultrasound secondary to IUGR and chronic hypertension. Blood pressure today 146/70 and on repeat was 121/60. Patient asymptomatic from preeclampsia perspective today. Patient currently not on antihypertensive medication. * Lisa Ashley RN - 02/23/2025 2:15 PM EDT Patient denies any leaking of fluid or vaginal bleeding. She reports irregular contractions. NIPT negative. Patient reports next follow-up appointment with Dr. Crowe's office is today. * Medhat De Anda MD - 02/23/2025 2:15 PM EDT Maternal/ Medicine Consult Note Date: 02/23/2025 Name: Lisa Trevino : 2000 Referring Provider: Aydin Crowe MD Chief Complaint CHTN; proteinuria; contractions; IUGR Subjective History of Present Illness: Lisa Trevino is a 24 y.o. 35w3d who presents today for chronic hypertension CONG: Estimated Date of Delivery: 03/27/25 ROS: Otherwise Noted in HPI Current Outpatient Medications: aspirin 81 MG chewable tablet, Chew 1 tablet Daily., Disp: 30 tablet, Rfl: 6 Ferric Maltol (ACCRUFeR) 30 MG capsule, Take 1 capsule by mouth 2 (Two) Times a Day. Take on an empty stomach., Disp: 60 capsule, Rfl: 9 vitamins (PRENATABS RX) 29-1 MG tablet tablet, Take 1 tablet by mouth Daily., Disp: 30 tablet, Rfl: 11 valACYclovir (VALTREX) 500 MG tablet, Take 1 tablet by mouth Daily., Disp: 30 tablet, Rfl: 6 [Paused] labetalol (NORMODYNE) 100 MG tablet, Take 1 tablet by mouth 2 (Two) Times a Day. (Patient not taking: Reported on 02/06/2025), Disp: 60 tablet, Rfl: 8 Objective Vital Signs BP 146/70 Wt 124 kg (272 lb 12.8 oz) LMP 05/24/2024 Estimated body mass index is 45.4 kg/m?? as calculated from the following: Height as of 02/18/25: 165.1 cm (65 ). Weight as of this encounter: 124 kg (272 lb 12.8 oz). Ultrasound Impression: See Viewpoint Assessment and Plan Lisa Trevino is a 24 y.o. 35w3d who presents today for chronic hypertension and IUGR Diagnoses and all orders for this visit: 1. Chronic hypertension affecting (Primary) Assessment & Plan: Patient presents for follow-up ultrasound secondary to IUGR and chronic hypertension. Blood pressure today 146/70 and on repeat was 121/60. Patient asymptomatic from preeclampsia perspective today. Patient currently not on antihypertensive medication. 2. Poor growth affecting management of mother in third trimester, single or unspecified fetus Assessment & Plan: Patient presents for follow-up growth ultrasound secondary to IUGR. Today's ultrasound shows normalgrowth with normal amniotic fluid. Given the combination of previously poor growth and chronic hypertension would recommend delivery at 37 to 38 weeks. Follow Up No follow-ups on file. I spent 10 minutes caring for the patient on the day of service. This included: obtaining or reviewing a separately obtained medical history, reviewing patient records, performing a medically appropriate exam and/or evaluation, counseling or educating the patient/family/caregiver, ordering medications, labs, and/or procedures and documenting such in the medical record. This does not include time spent on review and interpretation of other tests such as ultrasound or the performance of other procedures such as amniocentesis or CVS. Medhat De Anda MD, FACOG Maternal Medicine, [facility] documented in this encounter Plan of Treatment Upcoming Encounters Date Type Department Care Team (Late st Contact Info) Description 04/17/2025 1:40 PM EDT Visit [facility] OBGYN [address] [place] [address] Aydin Crowe MD [address] [place] [phone] documented as of this encounter Visit Diagnoses Diagnosis Chronic hypertension affecting - Primary Poor growth affecting management of mother in third trimester, single or unspecified fetus documented in this encounter Care Teams Subcontract Administrator Relationship Specialty Start Date End Date Jefe Schwartz MD [address] [facility] [address] [place] [address] PCP - General Adolescent Medicine 12/14/23 documented as of this encounter
--- OUTSIDE RECORDS SUMMARY | 2025-02-23 15:15 | XMS_ITS | Encounter Summary ---
Author Organization [facility] Address [address] [place] [address] Care Team Providers Care Portable Irrigation Operator Name Role Phone Jefe Schwartz MD Primary Care Provider [phone] Reason for Visit * Reason Comments Routine Visit Encounter Details Date Type Department Care Team (Late st Contact Info) Description 02/23/2025 3:15 PM EDT Routine [facility] OBGYN [address] [place], [place] [phone] Kartik Maurice, INSPECTOR ELEVATORS 1700 [facility] [address] [place] [address] GA: 35w3d Social History Tobacco Use Types Packs/Day Years Used Date Smoking Tobacco: Former Cigarettes Q uit: 01/2024 Smokeless Tobacco: Never Comments:Vape. Alcohol Use Standard Drinks/Week Comments Never 0 (1 standard drink = 0.6 oz pur e alcohol) [facility] Utilities Answer Date Recorded In the past 12 months has [employer], gas, oil, or water [employer] threatened to shut off services in your [...] and heating? Not hard at all 02/18/2025 [facility] [place] of Occupat ional Health - Occupational Stress [...] things needed for daily living? No 02/18/2025 [place] Depression Scale Answer Date Recorded Retired [place] Depression Score 11 02/23/2024 Retired EPD Scale: [...] GED or equivalent No 02/18/2025 Preferred Language Yi 02/18/2025 PHQ-2 Answer Date Recorded Patient Health [...] at LUQ with radiation to RUQ, daily [place] Guillaume, and daily h eartburn/reflux (Tums helps sometimes). Her care is complicated by (and status): see below. Patient Active Problem List Diagnosis WPW (Ospej-Wkscifpfg-Pqbie syndrome) SVT (supraventricular tachycardia) Herpes simplex type [...] historical information as entered above. Kartik Maurice, INSPECTOR ELEVATORS EXAM: Vitals BP: 124/70 Weight: 124 kg (272 lb 12.8 oz) Heart Rate: NST Dilation/Effacement/Station Dilation: 4 Effacement (%): 50 Urine Glucose Read-only: Negative Urine Protein Read-only: Negative Assessment and Plan Problem List Items Addressed This Visit WPW (Pujco-Ojunxxqyv-Eamup syndrome) Overview Dr. Fernando in [place] Echo & 2 week holter monitor in [...] low on labetalol 100 mg twice daily. [facility] growth ultrasounds at 28 and 32 [...] elevated. >UA 6.5 11/09/2024 anomaly scan at [facility] Worsening of iron deficiency anemia. Hematocrit [...] Info) Description 04/17/2025 1:40 PM EDT Visit [facility] OBGYN [address] [address] Aydin Crowe MD [address] [address] documented as of this encounter Procedures Procedure [...] PM EDT) Glucose, UA Negative Negative mg/dL [facility] Urine 02/23/2025 3:54 PM EDT Kartik Maurice INSPECTOR ELEVATORS POINT OF CARE TEST O RDERABLES Final Result Performing Organization Address City/[facility]/ZIP Co de Phone Number [facility]
[address] [place] [address], [place] [phone] * POC Protein, Urine, Qualitative, Dipstick (02/23/2025 3:54 PM EDT) Protein, POC Negative Negative mg/dL [facility] Lot Number 0 [facility] Expiration Date 0 [facility] Urine 02/23/2025 3:54 PM EDT Kartik Maurice APRN POINT OF CARE TEST O RDERABLES Final Result Performing Organization Address City/[facility]/ZIP Co de Phone Number [facility]
[address] [place] [address], [place] [phone] * Procedure Scanned (02/23/2025) Kartik Maurice APRN PROCEDURE/MINOR SURG ICAL ORDERABLES Final Result documented in this encounter Visit Diagnoses Diagnosis care, third trimester- Primary 35 weeks gestation of WPW (Nsdsg-Umtjnicws-Dlzzd syndrome) Anomalous atrioventricular excitation History of pre-eclampsia [...] antepartum documented in this encounter Care Teams Portable Irrigation Operator Relationship Specialty Start Date End Date Jefe Schwartz MD 1210 [facility] [address] [place] [phone] PCP - General Adolescent Medicine 12/14/23 documented as of this encounter
--- OUTSIDE RECORDS SUMMARY | 2025-02-27 09:40 | XMS_ITS | Encounter Summary ---
Author Organization [facility] Address [address] [place] [address] Care Team Providers Care Quality Control Inspector Name Role Phone Jefe Schwartz MD Primary Care Provider [phone] Reason for Referral * Diagnostic Imaging (Emergency) - Closed Specialty Diagnoses / Procedures Referred By Contact Referred To Contact Obstetrics and Gynecology Diagnoses 36 weeks gestation of Chronic hypertension affecting Procedures US Biophysical Profile;With Non-Stress Testing Aydin Crowe MD [address] [address] Phone: tel: fax: [facility] OBGYN [address] [address] Phone: tel: fax: Referral ID Status Reason Start Date Expiration Date Visits Re quested Visits Authorized [id number] Closed 02/27/2025 05/29/2026 1 1 Reason for Visit * Reason Comments Routine Visit Non-stress Test Encounter Details Date Type Department Care Team (Late st Contact Info) Description 02/27/2025 9:40 AM EDT Routine [facility]YN [address] [facility] [address] [place] [phone] Aydin Crowe MD [address] [id number] GA: 36w0d Social History Tobacco Use Types Packs/Day Years Used Date Smoking Tobacco: Former Cigarettes Q uit: 01/2024 Smokeless Tobacco: Never Comments:Vape. Alcohol Use Standard Drinks/Week Comments Never 0 (1 standard drink = 0.6 oz pur e alcohol) [facility] Utilities Answer Date Recorded In the [...] and heating? Not hard at all 02/18/2025 [facility] - Occupational [...] things needed for daily living? No 02/18/2025 [place] Depression Scale Answer Date Recorded Retired [place] Depression Score 11 02/23/2024 Retired EPD Scale: [...] GED or equivalent No 02/18/2025 Preferred Language Malian 02/18/2025 PHQ-2 Answer Date Recorded Patient Health [...] documented in this encounter Progress Notes * Adyin Crowe MD - 02/27/2025 9:40 AM EDT Images from the original note were not included. OB FOLLOW UP CC- Here for care of Sarbjit Riley is a 24 y.o. 36w0d patient being seen today for her obstetrical follow up visit. Patient reports increased edema at BLE (described as tight, but not painful), [place] Guillaume that cause increased vaginal pain, daily [...] below. Patient Active Problem List Diagnosis WPW (Vhond-Iaslwuagv-Xcsrn syndrome) SVT (supraventricular tachycardia) Herpes simplex type [...] elevated. >UA 6.5 11/09/2024 anomaly scan at [facility] Worsening of iron deficiency anemia. Hematocrit [...] Info) Description 04/17/2025 1:40 PM EDT Visit [facility] OBGYN 1700 [facility] [address] [place] [phone] Aydin Crowe MD 1700 [facility] [address] [place] [address] documented as of this encounter Procedures Procedure [...] EDT PAT NAME: SARBJIT RILEY MED REC#: [id number] DA: 2000 PAT GEND: F PAT TYPE: O EXAM GERI: [id number] REF PHYS AYDIN CROWE Indication ======== Non [...] of testing for the condition being monitored. Research Professional: Annamaria Eli RT R, [place] Physician: Aydin Crowe MD Electronically signed by: Aydin Crowe MD at: 11:12 Procedure Note Aydin Crowe MD - 02/27/2025 PAT NAME: SARBJIT RILEY MED REC#: [id number] DA: 2000 PAT GEND: F PAT TYPE: O EXAM GERI: [id number] REF PHYS AYDIN CROWE Indication ======== Non reactive NST; Morbid obesity BMI 45 Comparison Studies The findings of this study are compared to the prior ultrasound studydated 02/23/25 Method ======= Voluson E6, Transabdominal ultrasound examination. View: Sufficient ========= Schwarz . Number of fetuses: 1 Dating ====== Cycle:irregular cycle Method of dating:based on stated CONG GA by prior [id number] w + 0 d CONG by prior assessment:03/27/2025 Previous Ultrasound on:07/25/2024 Type of prior assessment:GS mean Previous dating:based on stated CONG, selected on 02/03/2025 Agreed CONG of previous datin03/27/2025 Assigned:based on stated CONG, selected on 02/27/2025 Assigned [email or web address] w + 0 d Assigned CONG:03/27/2025 [email or web address] d General Evaluation Cardiac activity present. FHR [...] schedule of testing for the condition beingmonitored. Research Professional: Annamaria Eli RT R, [facility] Physician: Aydin Crowe MD Electronically signed by: Aydin Crowe MD at: 11:12 Aydin Crowe MD [facility] US ORDERABLES Final Result * POC Glucose, Urine, Qualitative, Dipstick (02/27/2025 10:27 AM EDT) Glucose, UA Negative Negative mg/dL [facility] Urine 02/27/2025 10:2 7 AM EDT Aydin Crowe MD POINT OF CARE TEST ORDERABLES F inal Result Performing Organization Address [facility]/ZIP Co de Phone Number [facility]
[address] [place] [address], [place] [phone] * POC Protein, Urine, Qualitative, Dipstick (02/27/2025 10:27 AM EDT) Protein, POC Negative Negative mg/dL [facility] Lot Number 0 [facility] Expiration Date 0 [facility] Urine 02/27/2025 10:2 7 AM EDT Aydin Crowe MD POINT OF CARE TEST ORDERABLES F inal Result Performing Organization Address City/[facility]/ZIP Co de Phone Number [facility]
[address] [place] [address], [place] [phone] * Procedure Scanned (02/27/2025) Aydin Crowe MD PROCEDURE/MINOR SURGICAL ORDERA BLES Final Result documented in this encounter Visit Diagnoses Diagnosis care, third trimester- Primary 36 weeks gestation of Chronic hypertension affecting 36 weeks gestation of Chronic hypertension affecting documented in this encounter Care Teams Quality Control Inspector Relationship Specialty Start Date End Date Jefe Schwartz MD [address] [place] [address] [place] [address] PCP - General Adolescent Medicine 12/14/23 documented as of this encounter
--- OUTSIDE RECORDS SUMMARY | 2025-02-27 10:50 | XMS_ITS | Encounter Summary ---
Author Organization [facility] Address [address] [place] [address] Care Team Providers Care Authorizer Name Role Phone Jefe Schwartz MD Primary Care Provider [phone] Reason for Visit * Diagnostic Imaging (Emergency) - Closed Specialty Diagnoses / Procedures Referred By Contact Referred To Contact Obstetrics and Gynecology Diagnoses 36 weeks gestation of Chronic hypertension affecting Procedures US Biophysical Profile;With Non-Stress Testing Aydin Crowe MD [address] [address] Phone: tel: fax: [facility] OBGYN [address] [address] Phone: tel: fax: Referral ID Status Reason Start Date Expiration Date Visits Re quested Visits Authorized [id number] Closed 02/27/2025 05/29/2026 1 1 Encounter Details Date Type Department Care Team (Latest Contact Info) Description 02/27/2025 10:50 AM EDT Ancillary Procedure [facility] OBGYN [address] [address] 36 weeks gestation of ; Chronic hypertension affecting Social History Tobacco Use Types Packs/Day Years Used Date Smoking Tobacco: Former Cigarettes Q uit: 01/2024 Smokeless Tobacco: Never Comments:Vape. Alcohol Use Standard Drinks/Week Comments Never 0 (1 standard drink = 0.6 oz pur e alcohol) [facility] Utilities Answer Date Recorded In [...] and heating? Not hard at all 02/18/2025 [facility] of Occupat ional Health - Occupational [...] things needed for daily living? No 02/18/2025 [place] Depression Scale Answer Date Recorded Retired [place] Depression Score 11 02/23/2024 Retired EPD Scale: [...] GED or equivalent No 02/18/[address] [place] 02/18/2025 PHQ-2 Answer Date Recorded Patient Health [...] Info) Description 04/17/2025 1:40 PM EDT Visit [facility] OBGYN [address] [place] [address] Aydin Crowe MD [address] [place] [address] documented as of this encounter Procedures Procedure [...] EDT PAT NAME: SARBJIT RILEY MED REC#: [id number] DA: 2000 PAT GEND: F PAT TYPE: O EXAM GERI: [id number] REF PHYS AYDIN CROWE Indication ======== Non [...] of testing for the condition being monitored. Library Serials Assistant: RT Kyle Pringle, [facility] Physician: Aydin Crowe MD Electronically signed by: Aydin Crowe MD at: 11:12 Procedure Note Aydin Crowe MD - 02/27/2025 PAT NAME: SARBJIT RILEY [facility] REC#: [id number] DA: 2000 PAT GEND: F PAT TYPE: O EXAM GERI: [id number] REF PHYS AYDIN CROWE Indication ======== Non reactive NST; Morbid obesity BMI 45 Comparison Studies The findings of this study are compared to the prior ultrasound studydated 02/23/25 Method ======= Voluson E6, Transabdominal ultrasound examination. View: Sufficient ========= Schwarz . Number of fetuses: 1 Dating ====== Cycle:irregular cycle Method of dating:based on stated CONG GA by prior [id number] w + 0 d CONG by prior assessment:03/27/2025 Previous Ultrasound on:07/25/2024 Type of prior assessment:GS mean Previous dating:based on stated CONG, selected on 02/03/2025 Agreed CONG of previous datin03/27/2025 Assigned:based on stated CONG, selected on 02/27/2025 Assigned [email or web address] w + 0 d Assigned CONG:03/27/2025 [id number] d General Evaluation Cardiac activity present. FHR [...] schedule of testing for the condition beingmonitored. Library Serials Assistant: RT Kyle Pringle, [facility] Physician: Aydin Crowe MD Electronically signed by: Aydin Crowe MD at: 11:12 Aydin Crowe MD [facility] US ORDERABLES Final Result documented in this encounter Visit Diagnoses Diagnosis 36 weeks gestation of Chronic hypertension affecting documented in this encounter Care Teams Authorizer Relationship Specialty Start Date End Date Jefe Schwartz MD [address] [place] [facility] [address] [facility] [address] PCP - General Adolescent Medicine 12/14/23 documented as of this encounter
--- OUTSIDE RECORDS SUMMARY | 2025-03-02 09:30 | XMS_ITS | Encounter Summary ---
Author Organization [facility] Address [address] [place] [address] Care Team Providers Care Auto Mechanics Teacher Name Role Phone Jefe Schwartz MD Primary Care Provider [phone] Reason for Visit * Reason Comments Non-stress Test Routine Visit Encounter Details Date Type Department Care Team (Late st Contact Info) Description 03/02/2025 9:30 AM EDT Routine [facility] OBGYN [address] [place] [address] Kartik Maurice, MATT [address] [employer] [address] [place] [address] GA: 36w3d Social History Tobacco Use Types Packs/Day Years Used Date Smoking Tobacco: Some Days Cigarettes Last attempted to quit: 01/2024 Smokeless Tobacco: Never Tobacco Cessation:Ready to Q uit: Not Asked; Counseling Given: Not Answered Comments:Vape. Alcohol Use Standard Drinks/Week Comments Never 0 (1 standard drink = 0.6 oz pur e alcohol) [facility] Utilities Answer Date Recorded In the past 12 months has [employer], gas, oil, or water company threatened to [...] and heating? Not hard at all 02/18/2025 [facility] [place] of Occupat ional Health - Occupational Stress [...] things needed for daily living? No 02/18/2025 [place] Depression Scale Answer Date Recorded Retired [place] Depression Score 11 02/23/2024 Retired EPD [...] GED or equivalent No 02/18/2025 Preferred Language Spanish 02/18/2025 PHQ-2 Answer Date Recorded Patient Health [...] below. Patient Active Problem List Diagnosis WPW (Bhaae-Rhqnwlioz-Lrfww syndrome) SVT (supraventricular tachycardia) Herpes simplex type [...] historical information as entered above. Kartik Maurice, DITCHER OPERATOR EXAM: Vitals BP: 128/70 Weight: 124 kg (274 lb) Heart Rate: NST Dilation/Effacement/Station Dilation: 4 Effacement (%): 70 Urine Glucose Read-only: Negative Urine Protein Read-only: Negative Assessment and Plan Problem List Items Addressed This Visit WPW (Pckzh-Edhiqfria-Pscfl syndrome) Overview Dr. Fernando in [place] Echo & 2 week holter monitor in August 2023 wnl per patient. PDC appt 11/04; ultrasound within normal limits and normal growth. EFW 57%. No follow-up ultrasound scheduled. Relevant Medications labetalol (NORMODYNE) 100 MG tablet Herpes simplex type 2 (HSV-2) infection affecting , antepartum Overview Pending culture results from Dr. Cordero in [facility]. 10/11/2023 HSV 2 IgG positive; consistent with recurrent HSV2. Rx valtrex For suppression 500 mg daily. Relevant Medications valACYclovir (VALTREX) 500 MG tablet Obesity in , antepartum Overview BMI 44 Anomaly scan at [facility]. History of pre-eclampsia in prior , [...] Info) Description 04/17/2025 1:40 PM EDT Visit [facility]YN 1700 [facility] [address] [place] [phone] Aydin Crowe MD [address] [place] [address] documented as of this encounter Procedures Procedure Name Priority Date/Time Associated Diagnosis Comments POCT URINALYSIS DIPSTICK, MANUAL Routine 03/02/2025 9:58 AM EDT care, antepartum, unspecified SCANNED - PROCEDURE 03/02/2025 documented in this encounter Results * POC Urinalysis Dipstick (03/02/2025 9:58 AM EDT) Glucose, UA Negative Negative mg/dL [facility] Protein, POC Negative Negative mg/dL [facility] Urine 03/02/2025 9:58 AM EDT Kartik Maurice APRN POINT OF CARE TEST O RDERABLES Final Result [facility]
[address] [place] [address], [place] [phone] * Procedure Scanned (03/02/2025) Kartik Maurice APRN PROCEDURE/MINOR SURG ICAL ORDERABLES Final Result documented in this encounter Visit Diagnoses Diagnosis care, antepartum, unspecified - Primary WPW (Iabux-Fcpsguneg-Axpmt syndrome) Anomalous atrioventricular excitation Obesity in , [...] intake documented in this encounter Care Teams Auto Mechanics Teacher Relationship Specialty Start Date End Date Jefe Schwartz MD 1210 [facility] [address] [place] [address] PCP - General Adolescent Medicine 12/14/23 documented as of this encounter
--- OUTSIDE RECORDS SUMMARY | 2025-03-06 | XMS_ITS | Encounter Summary ---
Author Organization [facility] Address [address] [place] [address] Care Team Providers Care Museum Curator Name Role Phone Jefe Schwartz MD Primary Care Provider [phone] Reason for Visit * Auth/Cert (Routine) Specialty Diagnoses / Procedures Referred By Contac t Referred To Contact Diagnoses Chronic hypertension in obstetric context, third trimester Referral ID Status Reason Start Date Expiration Date Visits Re quested Visits Authorized [id number] 1 1 Encounter Details Date Type Department Care Team (Latest Contact Info) Description 03/06/2025 - 03/06/2025 11:59 PM EDT Hospital Encounter [facility] LABOR AND DELIVERY PROCEDURES [address] [place] [address] Discharge Disposition: Home or Self Care Social History Tobacco Use Types Packs/Day Years Used Date Smoking Tobacco: Former Cigarettes Q uit: 01/2024 Passive Smoke Exposure: Past Smokeless Tobacco: Never Comments:Vape. Alcohol Use Standard Drinks/Week Comments Never 0 (1 standard drink = 0.6 oz pur e alcohol) [facility] Utilities Answer Date Recorded In the past 12 months has [employer], gas, oil, or water [employer] threatened to shut off services in your [...] and heating? Not hard at all 03/06/2025 [facility] [place] of Occupat ional [facility] - Occupational Stress Questionnaire Answer [...] things needed for daily living? No 03/06/2025 [place] Depression Scale Answer Date Recorded [place] Depression Scale Total 8 03/06/2025 The thought [...] GED or equivalent No 03/06/2025 Preferred Language Malian 03/06/2025 PHQ-2 Answer Date Recorded Patient Health [...] 03/06/2025 12:42 AM Chelsy Chan RN * [place] Suicide Severity Rating Scale (Screener/Recent Self-Report) Question [...] Info) Description 04/17/2025 1:40 PM EDT Visit [facility] OBGYN [address] [place] [address] Aydin Crowe MD [address] [facility] [address] [place] [phone] documented as of this encounter Visit Diagnoses Not on filedocumented in this encounter Care Teams Museum Curator Relationship Specialty Start Date End Date Jefe Schwartz MD [facility] [address] [place] [address] PCP - General Adolescent Medicine 12/14/23 documented as of this encounter
--- OUTSIDE RECORDS SUMMARY | 2025-03-06 00:04 | XMS_ITS | Encounter Summary ---
Author Organization [facility] Address [address] [place] [address] Care Team Providers Care Insurance Account Assistant Name Role Phone Jefe Schwartz MD Primary Care Provider [phone] Reason for Visit * Reason Comments Scheduled Induction * Auth/Cert (Routine) Specialty Diagnoses / Procedures Referred By Contac t Referred To Contact Diagnoses Chronic hypertension in obstetric context, third trimester Referral ID Status Reason Start Date Expiration Date Visits Re quested Visits Authorized [id number] 1 1 Encounter Details Date Type Department Care Team (Late st Contact Info) Description 03/06/2025 12:04 AM EDT - 03/08/2025 10:40 AM EDT Hospital Encounter [facility]ABY [address] [place] [address] Aydin Crowe MD [address] [facility] [address] [place] [address] Discharge Disposition: Home or Self Care Social History Tobacco Use Types Packs/Day Years Used Date Smoking Tobacco: Former Cigarettes Q uit: 01/2024 Passive Smoke Exposure: Past Smokeless Tobacco: Never Tobacco Cessation:Counseling Given: No Comments:Vape. Alcohol Use Standard Drinks/Week Comments Never 0 (1 standard drink = 0.6 oz pur e alcohol) [facility] Utilities Answer Date Recorded In the past 12 months has [employer] electric, gas, oil, or water company threatened [...] and heating? Not hard at all 03/06/2025 [facility] - Occupational Stress Questionnaire Answer Date [...] things needed for daily living? No 03/06/2025 [place] Depression Scale Answer Date Recorded [place] Depression Scale Total 8 03/06/2025 The thought [...] GED or equivalent No 03/06/2025 Preferred Language Lithuanian 03/06/2025 PHQ-2 Answer Date Recorded Patient Health [...] on one occasion? Never 03/06/2025 12:58 AM hCelsy Chan R N * Over the past [...] 03/06/2025 12:42 AM Chelsy Chan RN * [place] Suicide Severity Rating Scale (Screener/Recent Self-Report) Question [...] Date of Discharge: 03/08/2025 Patient: Lisa Trevino MR#:[id number] Delivery Provider: Aydin Crowe Attending Provider: Aydin [...] this encounter Progress Notes * Kelly Patricia, ELASTIC ATTACHER COVERSTITCH - 03/07/2025 10:20 AM EDT Images from [...] Crowe MD - 03/06/2025 5:48 AM EDT [facility] Vaginal Delivery Note Patient Name: Lisa Trevino [...] EDT Subjective Patient without complaints. Her primary rn lpn cna has requested artificial rupture of membranes. Objective BP 115/56 (BP Location: Left arm, Patient Position: Lying) Pulse 87 Temp 98.3 ??F (36.8 ??C) (Oral) Resp 16 Ht 165.1 cm (65 ) Wt 124 kg (273 lb) LMP 05/24/2024 No BMI 45.43 kg/m?? General: No acute distress Lungs: No increased work of breathing Cervix: 6/80/-2 heart rate tracins, moderate variability, positive accelerations [place]: Contractions every 3 minutes Assessment and plan AROM-clear fluid Pitocin currently at 6 milliunits with plan to titrate up; RN having difficulty with adequate fetalheart rate tracing - IUPC and FSE placed. Continue current plan per primary rn lpn cna. Ryne Ramos MD 03/06/2025 04:11 EDT documented in this encounter H&P Notes * Aydin Crowe MD - 03/06/2025 12:01 AM EDT Images from the original note were not included. [place] Obstetric History and Physical Chief Complaint Patient presents with Scheduled Induction Subjective Patient is a 24 y.o. female currently at 37w0d, who presents with IOL 2/2 CHTN and previousIUGR (now improved), per [facility] recommendation. Her care is complicated by [...] Range Date Time Amphetamine Screen Negative ng/mL Sexnwq=5589 08/17/24 1531 Barbiturate Screen Negative ng/mL Uhmgxi=121 08/17/24 1531 Benzodiazepine Screen Negative ng/mL Avgufr=614 08/17/24 1531 Methadone Screen Negative ng/mL Yuenjb=193 08/17/24 1531 Phencyclidine Screen Negative ng/mL Cutoff=25 08/17/24 1531 Opiates Screen Negative ng/mL Svjlte=485 08/17/24 1531 THC Screen Negative ng/mL Cutoff=20 08/17/24 1531 Cocaine Screen Negative ng/mL Tfcddj=350 08/17/24 1531 Propoxyphene Screen Negative ng/mL Lefqdi=224 08/17/24 1531 Buprenorphine Screen Methamphetamine Screen Oxycodone [...] at [address] Cordero in [place] Baseline PEP, 24 Hour urine, HGBA1C, TSH drawn at [facility] (29wk); not on medication No meds [...] Transfer of care @ 28 weeks from [place] unemployed. 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 Anemia 28 weeks hematocrit 29%.: on iron. PDC u/s 30 wk; EFW 57% Growth ultrasound 12/01 EFW 48%. AC 66%. Psoriatic arthritis [address] 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- dx at 16 [...] Uterine Resting Tone (mmHg) by IUPC: 20 [place] Units: Cervical Exam: Exam by: Method: sterile [...] Date of Referral 03/06/25 Person Making Referral health consultant (courtesy visit; newly ) Maternal Reason for Referral other (see comments) (2nd time mother; 1st child did not latch, but mother pumped for 6 weeks; history of PCOS; independent; offered latch assistance, mother accepted) Reason for Referral 35-37 weeks gestation (encouraged pumping due to infant gestational age and due to history of PCOS to stimulate/encouragemilk production; DIABETES SPECIALIST following) Maternal Assessment Breast Size Issue none [...] three hour feedings along with feeding cues. DIABETES SPECIALIST following. Provided hospital pump and mother began [...] Info) Description 04/17/2025 1:40 PM EDT Visit [facility] O[facility] [address] [address] Aydin Crowe MD [address] [address] documented as of this encounter Procedures Procedure [...] CBC (No Diff) (03/08/2025 5:27 AM EDT) [facility] WBC 11.01(H) 3.40 - 10.80 10*3/mm3 03/08/2025 6:04 AM EDT [facility] RBC 2.82(L) 3.77 - 5.28 10*6/mm3 03/08/2025 6:04 AM EDT [facility] Hemoglobin 7.2(L) 12.0 - 15.9 g/dL 03/08/2025 6:04 AM EDT [facility] Hematocrit 24.1(L) 34.0 - 46.6 % 03/08/2025 6:04 AM EDT [facility] MCV 85.5 79.0 - 97.0 fL 03/08/2025 6:04 AM EDT [facility] MCH 25.5(L) 26.6 - 33.0 pg 03/08/2025 6:04 AM EDT [facility] MCHC 29.9(L) 31.5 - 35.7 g/dL 03/08/2025 6:04 AM EDT [facility] RDW 15.5(H) 12.3 - 15.4 % 03/08/2025 6:04 AM EDT [facility] RDW-SD 47.4 37.0 - 54.0 fl 03/08/2025 6:04 AM EDT [facility] MPV 11.8 6.0 - 12.0 fL 03/08/2025 6:04 AM EDT [facility] Platelets 213 140 - 450 10*3/mm3 03/08/2025 6:04 AM EDT [facility] Blood Venipuncture / Unknown 03/08/2025 5:27 AM EDT 03/08/2025 5:55 AM EDT Kelly Patricia ELASTIC ATTACHER COVERSTITCH LAB BLOOD ORDERABLES Final Result [facility]
[address] [place] [address], * (ABNORMAL) CBC Auto Differential (03/07/2025 5:07 AM EDT) WBC 9.80 3.40 - 10.80 10*3/mm3 03/07/2025 5:34 AM EDT [facility] RBC 2.90(L) 3.77 - 5.28 10*6/mm3 03/07/2025 5:34 AM EDT [facility] Hemoglobin 7.6(L) 12.0 - 15.9 g/dL 03/07/2025 5:34 AM EDT [facility] Hematocrit 24.7(L) 34.0 - 46.6 % 03/07/2025 5:34 AM EDT [facility] MCV 85.2 79.0 - 97.0 fL 03/07/2025 5:34 AM EDT [facility] MCH 26.2(L) 26.6 - 33.0 pg 03/07/2025 5:34 AM EDT [facility] MCHC 30.8(L) 31.5 - 35.7 g/dL 03/07/2025 5:34 AM [facility] RDW 15.0 12.3 - 15.4 % 03/07/2025 5:34 [facility] RDW-SD 46.5 37.0 - 54.0 fl 03/07/2025 5:34 AM [facility] MPV 11.9 6.0 - 12.0 fL 03/07/2025 5:34 AM [facility] Platelets 210 140 - 450 10*3/mm3 03/07/2025 5:34 AM [facility] Neutrophil % 67.5 42.7 - 76.0 % 03/07/2025 5:34 AM [facility] Lymphocyte % 21.3 19.6 - 45.3 % 03/07/2025 5:34 AM [facility] Monocyte % 5.8 5.0 - 12.0 % 03/07/2025 5:34 AM [facility] Eosinophil % 0.9 0.3 - 6.2 % 03/07/2025 5:34 AM [facility] Basophil % 0.4 0.0 - 1.5 % 03/07/2025 5:34 AM [facility] Immature Grans % 4.1(H) 0.0 - 0.5 % 03/07/2025 5:34 AM [facility] Neutrophils, Absolute 6.61 1.70 - 7.00 10*3/mm3 03/07/2025 5:34 [facility] Lymphocytes, Absolute 2.09 0.70 - 3.10 10*3/mm3 03/07/2025 5:34 AM [facility] Monocytes, Absolute 0.57 0.10 - 0.90 10*3/mm3 03/07/2025 5:34 AM [facility] Eosinophils, Absolute 0.09 0.00 - 0.40 10*3/mm3 03/07/2025 5:34 AM EDT [facility] Basophils, Absolute 0.04 0.00 - 0.20 10*3/mm3 03/07/2025 5:34 AM EDT [facility] Immature Grans, Absolute 0.40(H) 0.00 - 0.05 10*3/mm3 03/07/2025 5:34 AM EDT [facility] nRBC 0.3(H) 0.0 - 0.2 /100 WBC 03/07/2025 5:34 AM EDT [facility] Blood Venipuncture / Unknown 03/07/2025 5:07 AM EDT 03/07/2025 5:16 AM EDT Aydin Crowe MD LAB BLOOD ORDERABLES Final Resu lt [facility]
[address] [place] [address], * Tissue Pathology Exam (03/06/2025 5:50 AM EDT) Case Report Surgical Pathology Report Case: [id number] Authorizing Provider: Aydin Crowe MD Collected: 03/06/2025 05:50 AM Ordering Location: [facility] Received: 03/06/2025 06:11 AM LABOR DELIVERY Pathologist: Shilpa Rascon MD Specimen: Placenta, Placenta, 37 weeks IUGR, hypertension 03/07/2025 11:25 AM EDT [facility] Clinical Information 37 weeks, IUGR, hypertension 03/07/2025 11:25 AM EDT [facility] Final Diagnosis Placenta, vaginal delivery: Mature placental parenchyma with increased perivillous and subchorionic fibrin deposition Three-vessel umbilical cord 03/07/2025 11:25 AM EDT [facility] at 1125 EDT Gross [...] spongy parenchyma with no gross lesions identified. Brush Holder Inspector sections are submitted as follows: 1A-umbilical cord with false knot and membrane roll 3M-ftrw-suwznvmqa disc with subchorionic fibrin 3Y-ertm-afradlxel disc at cord insertion site. LDP 03/07/2025 11:25 AM EDT [facility] Microscopic Description The slides are reviewed and demonstrate histopathologic features supporting the above rendered diagnosis. 03/07/2025 11:25 AM EDT [facility] Tissue Placental structure / Unknown Collection / Unknown 03/06/2025 5:50 AM EDT 03/06/2025 6:11 AM EDT Aydin Crowe MD PATHOLOGY/CYTOLOGY ORDERABLES F inal Result [facility]
[address] [place] [address], * (ABNORMAL) Protein / Creatinine Ratio, Urine - Urine, Clean Catch (03/06/2025 1:19 AM EDT) Protein/Creati nine Ratio, Urine 399.3(H) 0.0 - 200.0 mg/G Crea 03/06/2025 9:31 AM EDT [facility] Creatinine, Urine 108.2 mg/dL 03/06/2025 9:31 AM EDT [facility] Total Protein, Urine 43.2 mg/dL 03/06/2025 9:31 AM EDT [facility] Urine Urine specimen obtained by clean catch procedure / Unknown Collection / Unknown 03/06/2025 1:19 AM EDT 03/06/2025 1:19 AM EDT Aydin Crowe MD URINE ORDERABLES Final Result [facility]
[address] [place] [address], * (ABNORMAL) CBC (No Diff) (03/06/2025 1:14 AM EDT) WBC 11.53(H) 3.40 - 10.80 10*3/mm3 03/06/2025 1:20 AM EDT [facility] RBC 3.57(L) 3.77 - 5.28 10*6/mm3 03/06/2025 1:20 AM EDT [facility] Hemoglobin 9.0(L) 12.0 - 15.9 g/dL 03/06/2025 1:20 AM EDT [facility] Hematocrit 29.6(L) 34.0 - 46.6 % 03/06/2025 1:20 AM EDT [facility] MCV 82.9 79.0 - 97.0 fL 03/06/2025 1:20 AM EDT [facility] MCH 25.2(L) 26.6 - 33.0 pg 03/06/2025 1:20 AM EDT [facility] MCHC 30.4(L) 31.5 - 35.7 g/dL 03/06/2025 1:20 AM EDT [facility] RDW 15.2 12.3 - 15.4 % 03/06/2025 1:20 AM EDT [facility] RDW-SD 46.0 37.0 - 54.0 fl 03/06/2025 1:20 AM EDT [facility] MPV 11.7 6.0 - 12.0 fL 03/06/2025 1:20 AM EDT [facility] Platelets 269 140 - 450 10*3/mm3 03/06/2025 1:20 AM EDT [facility] Blood Venipuncture / Unknown 03/06/2025 1:14 AM EDT 03/06/2025 1:14 AM EDT us Aydin Crowe MD LAB BLOOD ORDERABLES Final Resu lt Performing Organization Address [facility] Co de Phone Number [facility]
[address] [place] [address], * (ABNORMAL) Ferritin (03/06/2025 1:11 AM EDT) Ferritin 7.88(L) 13.00 - 150.00 ng/mL 03/06/2025 6:36 AM EDT [facility] Blood Venipuncture / Unknown 03/06/2025 1:11 AM EDT 03/06/2025 2:53 AM EDT Narrative [facility] - 03/06/2025 6:36 AM EDT Results may be falsely decreased if patient taking Biotin. us Aydin Crowe MD LAB BLOOD ORDERABLES Final Resu lt Performing Organization Address [facility] de Phone Number [facility]
[address] [place] [address], * (ABNORMAL) Iron Profile w/o Ferritin (03/06/2025 1:11 AM EDT) Iron 54 37 - 145 mcg/dL 03/06/2025 6:36 AM EDT [facility] Iron Saturation (TSAT) 8(L) 20 - 50 % 03/06/2025 6:36 AM EDT [facility] Transferrin 482(H) 200 - 360 mg/dL 03/06/2025 6:36 AM EDT [facility] TIBC 718(H) 298 - 536 mcg/dL 03/06/2025 6:36 AM EDT [facility] Blood Venipuncture / Unknown 03/06/2025 1:11 AM EDT 03/06/2025 2:53 AM EDT Aydin Crowe MD LAB BLOOD ORDERABLES Final Resu lt [facility]
[address] [place] [address], * (ABNORMAL) Comprehensive Metabolic Panel (03/06/2025 1:11 AM EDT) Pathologist [facility] Glucose 84 65 - 99 mg/dL 03/06/2025 3:12 AM EDT [facility] BUN 8.9 6.0 - 20.0 mg/dL 03/06/2025 3:12 AM EDT [facility] Creatinine 0.87 0.57 - 1.00 mg/dL 03/06/2025 3:12 AM EDT [facility] Sodium 137 136 - 145 mmol/L 03/06/2025 3:12 AM EDT [facility] Potassium 4.0 3.5 - 5.2 mmol/L 03/06/2025 3:12 AM EDT [facility] Chloride 106 98 - 107 mmol/L 03/06/2025 3:12 AM EDT [facility] CO2 18.4(L) 22.0 - 29.0 mmol/L 03/06/2025 3:12 AM EDT [facility] Calcium 8.7 8.6 - 10.5 mg/dL 03/06/2025 3:12 AM EDT [facility] Total Protein 6.3 6.0 - 8.5 g/dL 03/06/2025 3:12 AM EDT [facility] Albumin 3.4(L) 3.5 - 5.2 g/dL 03/06/2025 3:12 AM EDT [facility] ALT (SGPT) 22 1 - 33 U/L 03/06/2025 3:12 AM EDT [facility] AST (SGOT) 16 1 - 32 U/L 03/06/2025 3:12 AM EDT [facility] Alkaline Phosphatase 113 39 - 117 U/L 03/06/2025 3:12 AM EDT [facility] Total Bilirubin 0.7 0.0 - 1.2 mg/dL 03/06/2025 3:12 AM EDT [facility] Globulin 2.9 gm/dL 03/06/2025 3:12 AM EDT [facility] Comment:Calculated Result A/G Ratio 1.2 g/dL 03/06/2025 3:12 AM EDT [facility] BUN/Creatinine Ratio 10.2 7.0 - 25.0 03/06/2025 3:12 AM EDT [facility] Anion Gap 12.6 5.0 - 15.0 mmol/L 03/06/2025 3:12 AM EDT [facility] eGFR 95.6 >60.0 mL/min/1.7 3 03/06/2025 3:12 AM EDT [facility] Blood Venipuncture / Unknown 03/06/2025 1:11 AM EDT 03/06/2025 2:53 AM EDT [facility] - 03/06/2025 3:12 AM EDT [...] MD LAB BLOOD ORDERABLES Final Resu lt [facility]
[address] [place] [address], * (ABNORMAL) Uric Acid (03/06/2025 1:11 AM EDT) Pathologist [facility] Uric Acid 6.6(H) 2.4 - 5.7 mg/dL 03/06/2025 3:12 AM EDT [facility] Comment:Falsely depressed re sults may occur on samples drawn from patients receiving N-Acetylcysteine (NAC) or Metamizole. Blood Venipuncture / Unknown 03/06/2025 1:11 AM EDT 03/06/2025 2:53 AM EDT us Aydin Crowe MD LAB BLOOD ORDERABLES Final Resu lt Performing Organization Address [facility]/ZIP Co de Phone Number [facility]
[address] [place] [address], * Lactate Dehydrogenase (03/06/2025 1:11 AM EDT) [facility] LDH 187 135 - 214 U/L 03/06/2025 3:12 AM EDT [facility] Blood Venipuncture / Unknown 03/06/2025 1:11 AM EDT 03/06/2025 2:53 AM EDT Aydin Crowe MD LAB BLOOD ORDERABLES Final Resu lt Performing Organization Address [facility] Co de Phone Number [facility]
[address] [place] [address], * Treponema pallidum AB w/Reflex RPR (03/06/2025 1:11 AM EDT) [facility] Treponemal AB Total Non-Reacti ve Non-React ramya 03/06/2025 1:42 PM EDT [facility] Blood Venipuncture / Unknown 03/06/2025 1:11 AM EDT 03/06/2025 1:11 AM EDT Narrative [facility] - 03/06/2025 1:42 PM EDT Reactive results will reflex RPR testing. us Aydin Crowe MD LAB BLOOD ORDERABLES Final Resu lt Performing Organization Address City/[facility]/ZIP Co de Phone Number [facility]
[address] [place] [id number], * Type & Screen (03/06/2025 1:03 AM EDT) ABO Type A 03/06/2025 1:37 AM EDT [facility] RH type Positive 03/06/2025 1:37 AM EDT [facility] Antibody Screen Negative 03/06/2025 1:37 AM EDT [facility] T&S Expiration Date 03/09/2025 11:59:59 PM 03/06/2025 1:37 AM EDT [facility] Blood Venipuncture / Unknown 03/06/2025 1:03 AM EDT 03/06/2025 1:03 AM EDT us Aydin Crowe MD BLOOD BANK TEST ORDERABLES Edit ed Result - Final Performing Organization Address [facility] Co de Phone Number [facility]
[address] [place] [address], documented in this encounter Visit Diagnoses Diagnosis [...] at 0756, For 1 dose, Group 2 (Morales-Sanchez) Hazardous Drug - Reproductive Risk Only - See Handling Guide miSOPROStol (CYTOTEC) tablet 800 mcg 800 mcg, Rectal, Once As Needed, Hemorrhage, Starting on Thu03/06/25 at 0756, For 1 dose, Group 2 (Morales-Sanchez) Hazardous Drug - Reproductive Risk Only - [...] restarted at the initial dose. Group 2 (Morales-Sanchez) Hazardous Drug - Reproductive Risk Only - [...] that bag to avoid waste. Group 2 (Morales-Sanchez) Hazardous Drug - Reproductive Risk Only - [...] restarted at the initial dose. Group 2 (Morales-Sanchez) Hazardous Drug - Reproductive Risk Only - [...] at 0756, For 1 dose, Group 2 (Morales-Sanchez) Hazardous Drug - Reproductive Risk Only - See Handling Guide miSOPROStol (CYTOTEC) tablet 800 mcg 800 mcg, Rectal, Once As Needed, Hemorrhage, Starting on Thu03/06/25 at 0756, For 1 dose, Group 2 (Morales-Sanchez) Hazardous Drug - Reproductive Risk Only - [...] an additional bag (2 total). Group 2 (Morales-Sanchez) Hazardous Drug - Reproductive Risk Only - [...] that bag to avoid waste. Group 2 (Morales-Sanchez) Hazardous Drug - Reproductive Risk Only - See Handling Guide Followed by oxytocin (PITOCIN) 30 units in 0.9% sodium chloride 500 mL (premix) () 250 mL/hr, Intravenous, Continuous, Starting on Thu03/06/25 at 0900, For 1 hour, Infuse at 250 ml/hr for remaining volume in bag. Group 2 (Morales-Sanchez) Hazardous Drug - Reproductive Risk Only - [...] 5-8 documented in this encounter Care Teams Insurance Account Assistant Relationship Specialty Start Date End Date Jefe Schwartz MD [address] [place] [address] PCP - General Adolescent Medicine 12/14/23 documented as of this encounter
--- OUTSIDE RECORDS SUMMARY | 2025-03-06 05:06 | XMS_ITS | Encounter Summary ---
Author Organization [facility] Address [address] [place] [id number] Care Team Providers Care Granular Operator Name Role Phone Jefe Schwartz MD Primary Care Provider [phone] Reason for Visit * Auth/Cert (Routine) Specialty Diagnoses / Procedures Referred By Contac t Referred To Contact Diagnoses Chronic hypertension in obstetric context, third trimester Referral ID Status Reason Start Date Expiration Date Visits Re quested Visits Authorized [id number] 1 1 Encounter Details Date Type Department Care Team (Late st Contact Info) Description 03/06/2025 5:06 AM EDT Anesthesia Event [facility] LABOR DELIVERY [address] [facility] [place] [address] Mami Balbuena MD 1225 [facility] [address] [place] [address] Anesthesia Record Procedure Summary Procedure Name Responsible Anesthesiologist Anesthesia Start Time Anesthesia Stop Time LABOR ANALGESIA Mami Balbuena MD 03/06/25 0506 0530 Events Date Time Event Comment 03/06/2025 0505 0506 An Start The patient was reevaluated immediately before moderate or deep sedation use and before anesthesia induction. 0506 Face Time 0519 Epidural Placed 0530 An Stop Meds Name Total lidocaine 1.5%-EPINEPHrine PF 1:200,000 (XYLOCAINE W/EPI) injection 3 mL ropivacaine (NAROPIN) 0.5 % 5 mL in sodi um chloride 0.9 % 5 mL epidural 10 mL * Agents No agents on file. * Blood No blood administrations on file. Lines, Drains, and Airways Type Details Placement Removal Peripheral IV Placement Date: 02/08 04/03; Placement Time: 0140; Catheter Size: 18 G; Orientation: Anterior, Right, Upper; Location: Arm; Site Prep: Alcohol; Local Anes: None; Technique: Ultrasound guidance; Insertion Attempts: 1; Removal Date: 03/07/25; Removal Time: 0803/06/25 0140 by Chelsy Ness RN 03/07/25 0820 by Jennifer King RN Epidural Placement Date: 02/08 04/03; Placement Time: 0549 (created via procedure documentation); Removal Date: 03/06/25; Removal Time: 0603/06/25 0549 by Mami Balbuena MD 03/06/25 0635 by Chelsy Ness RN documented in this encounter Social History Tobacco Use Types Packs/Day Years Used Date Smoking Tobacco: Former Cigarettes Q uit: 01/2024 Passive Smoke Exposure: Past Smokeless Tobacco: Never Comments:Vape. Alcohol Use Standard Drinks/Week Comments Never 0 (1 standard drink = 0.6 oz pur e alcohol) [facility] Utilities Answer Date Recorded In the past 12 months has [employer], gas, oil, or water [employer] threatened to shut off services in your [...] and heating? Not hard at all 03/06/2025 [facility] [place] of Occupat ional Health - Occupational Stress [...] things needed for daily living? No 03/06/2025 [place] Depression Scale Answer Date Recorded [place] Depression Scale Total 8 03/06/2025 The thought [...] GED or equivalent No 03/06/2025 Preferred Language Swedish 03/06/2025 PHQ-2 Answer Date Recorded Patient Health [...] 03/06/2025 12:42 AM Chelsy Chan RN * [place] Suicide Severity Rating Scale (Screener/Recent Self-Report) Question Answer Date of Assessment Author 6. Suicidal Behavior (Lifetime) No 12:42 AM Chelsy Chan RN * Question Answer Date of Assessment Author Little interest or pleasure in doing things Not at all 03/06/2025 12:58 AM DYL[place] Chelsy Ness R N Feeling down, depressed, or hopeless Not at all 03/06/2025 12:58 AM EDT Chelsy Ness R N documented as of this encounter OR Notes * Anesthesia Postprocedure Evaluation - Heidi Garcia CRNA - 03/07/2025 9:28 AM EDT Patient: Lisa Trevino Procedure Summary Date: 03/06/25 Room / Location: Anesthesia Start: 505 Anesthesia Stop: 529 Procedure: LABOR ANALGESIA Diagnosis: Scheduled Providers: Provider: Mami Balbuena MD Anesthesia Type: epidural ASA Status: 2 Anesthesia Type: epidural Vitals Vitals Value Taken Time BP 132/84 03/07/25 07:55 Temp 98.9 ??F (37.2 ??C) 03/07/25 07:55 Pulse 99 03/07/25 07:55 Resp 16 03/07/25 07:55 SpO2 100 % 03/06/25 05:55 Post Anesthesia Care and Evaluation Patient location during evaluation: bedside Patient participation: complete - patient participated Level of consciousness: awake Pain score: 0 Pain management: adequate Airway patency: patent Anesthetic complications: No anesthetic complications PONV Status: none Cardiovascular status: acceptable and blood pressure returned to baseline Respiratory status: acceptable Hydration status: acceptable Post Neuraxial Block status: Motor and sensory function returned to baseline and No signs or symptoms of PDPH * Anesthesia Procedure Notes - Mami Balbuena MD - 03/06/2025 5:49 AM EDT Associated Order(s): Labor Epidural Labor Epidural Patient reassessed immediately prior to procedure Patient location during procedure: OB Preanesthetic Checklist Completed: patient identified, IV checked, risks and benefits discussed, surgical consent, monitorsand equipment checked, pre-op evaluation and timeout performed Prep: Pt Position:sitting Administrative Personal Assistant:cap, gloves, sterile barrier, mask and gown Prep:chlorhexidine gluconate and isopropyl alcohol Monitoring:blood pressure monitoring, continuous pulse oximetry and EKG Epidural Block Procedure: Approach:midline Guidance:landmark technique and palpation technique Location:L4-L5 Needle Type:Tuohy Needle Gauge:17 G Loss of Resistance Medium: air Loss of Resistance: 9cm Cath Depth at skin:14 cm Paresthesia: none Aspiration:negative Test Dose:negative Number of Attempts: 1 Post Assessment: Dressing:occlusive dressing applied and secured with tape Pt Tolerance:patient tolerated the procedure well with no apparent complications Complications:no * Anesthesia Preprocedure Evaluation - Mami Balbuena MD - 03/06/2025 5:46 AM EDT Anesthesia Evaluation Patient summary reviewed and Nursing notes reviewed no history of anesthetic complications: NPO Solid Status: > 8 hours NPO Liquid Status: > 2 hours Airway Mallampati: III TM distance: >3 FB Neck ROM: full Possible difficult intubation Dental - normal exam Pulmonary - negative pulmonary ROS and normal exam Cardiovascular - normal exam Exercise tolerance: good (4-7 METS) Rhythm: regular Rate: normal (+) dysrhythmias (Hx of SVT s/p ablation, WPW) Neuro/Psych (+) psychiatric history Anxiety and Depression GI/Hepatic/Renal/Endo (+) morbid obesity, GERD well controlled Musculoskeletal (-) negative ROS Abdominal - normal exam Bowel sounds: normal. 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 Pre-procedure education provided CODE STATUS: Code Status (Patient has no pulse and is not breathing): CPR (Attempt to Resuscitate) Medical Interventions (Patient has pulse or is breathing): Full Support Level Of Support Discussed With: Patient documented in this encounter Plan of Treatment Upcoming Encounters Date Type Department Care Team (Late st Contact Info) Description 04/17/2025 1:40 PM EDT Visit [facility] OBGYN 1700 [facility] [address] [place] [phone] Aydin rCowe MD 1700 [facility] [address] [place] [address] documented as of this encounter Procedures Procedure Name Priority Date/Time Associated Diagnosis Comments HC AN LABOR EPIDURAL KIT Routine 03/06/2025 5:49 AM EDT documented in this encounter Results * HC AN LABOR EPIDURAL KIT (03/06/2025 5:49 AM EDT) Narrative Mami Balbuena MD - 03/06/2025 5:49 AM EDT Mami Balbuena MD 03/06/2025 5:49 AM Labor Epidural Patient reassessed immediately prior to procedure Patient location during procedure: OB Preanesthetic Checklist Completed: patient identified, IV checked, risks and benefits discussed, surgical consent, monitors and equipment checked, pre-op evaluation and timeout performed Prep: Pt Position:sitting Administrative Personal Assistant:cap, gloves, sterile barrier, mask and gown Prep:chlorhexidine gluconate and isopropyl alcohol Monitoring:blood pressure monitoring, continuous pulse oximetry and EKG Epidural Block Procedure: Approach:midline Guidance:landmark technique and palpation technique Location:L4-L5 Needle Type:Tuohy Needle Gauge:17 G Loss of Resistance Medium: air Loss of Resistance: 9cm Cath Depth at skin:14 cm Paresthesia: none Aspiration:negative Test Dose:negative Number of Attempts: 1 Post Assessment: Dressing:occlusive dressing applied and secured with tape Pt Tolerance:patient tolerated the procedure well with no apparent complications Complications:no Mami Balbuena MD ANESTHESIA ORDERABLES Final Resu lt documented in this encounter Visit Diagnoses Not on filedocumented in this encounter Administered Medications Inactive Administered Medications - up to 3 most recent administrations Medication Order MAR Action Action Date Dose Rate Site Lidocaine-EPINEPHrine (PF) (XYLOCAINE W/EPI) 1.5 %-1:256052 injection Epidural, As Needed, Starting on Thu03/06/25 at 0519 Given 03/06/2025 5:19 AM EDT 3 mL ropivacaine (NAROPIN) 0.5 % 5 mL in sodium chloride 0.9 % 5 mL epidural Epidural, Continuous PRN, Starting on Thu03/06/25 at 0523 Bolus 03/06/2025 5:25 AM EDT 5 mL New Bag 03/06/2025 5:23 AM EDT 5 mL documented in this encounter Care Teams Granular Operator Relationship Specialty Start Date End Date Jefe Schwartz MD 1210 [facility] [address] [facility] [address] [place] [address] PCP - General Adolescent Medicine 12/14/23 documented as of this encounter
--- OUTSIDE RECORDS SUMMARY | 2025-04-12 09:12 | XMS_ITS | Encounter Summary ---
[facility] Address [address] [place] [address] Care Team Providers Care Space Control Supervisor Name Role Phone Jefe Schwartz MD Primary Care Provider [phone] Encounter Details Date Type Department Care Team (Late st Contact Info) Description 12/26/2024 Results Follow-Up [facility] OBGYN 1700 [facility] [address] [place] [phone] Kelly Patricia, SQUARING MACHINE OPERATOR 1700 [facility] [address] [place] [address] Social History Tobacco Use Types Packs/Day Years Used Date Smoking Tobacco: Former Cigarettes Q uit: 01/2024 Smokeless Tobacco: Never Comments:Vape. Alcohol Use Standard Drinks/Week Comments Never 0 (1 standard drink = 0.6 oz pur e alcohol) [facility] Utilities Answer Date Recorded In the past 12 months has [employer], gas, oil, or water [employer] threatened to shut off services in your [...] and heating? Not hard at all 12/30/2024 [facility] - Occupational Stress Questionnaire Answer [...] things needed for daily living? No 12/30/2024 [place] Depression Scale Answer Date Recorded Retired [place] Depression Score 11 02/23/2024 Retired EPD Scale: [...] GED or equivalent No 12/30/2024 Preferred Language Lao 12/30/2024 PHQ-2 Answer Date Recorded Patient Health [...] Description 04/17/2025 1:40 PM EDT Visit [facility] O[facility]YN 1700 [facility] [address] [place] [address] Aydin Crowe MD 1700 [facility] [address] [place] [address] documented as of this encounter Visit Diagnoses Not on filedocumented in this encounter Care Teams Space Control Supervisor Relationship Specialty Start Date End Date Jefe Schwartz MD 1210 [facility] [address] [place] [address] PCP - General Adolescent Medicine 12/14/23 documented as of this encounter
--- OUTSIDE RECORDS SUMMARY | 2025-04-12 09:12 | XMS_ITS | Encounter Summary ---
Author Organization [employer] ([place], [place], [place], [place]) Address [address] [place] [address] Care Team Providers Care Permit Agent Name Role Phone Unavailable Primary Care Provider Unavailabl e Encounter Details Date Type Department Care Team (Late st Contact Info) Description 10/15/2018 Transcribed Document [facility] [address] [place] [address] ProviderFeroz MD [facility] [place], [place] [address] Social History Tobacco Use Types Packs/Day Years [...] Note - Feroz Richter MD - 10/15/2018 4:49 PM PAINT STOCK CLERK Patient Education Materials Follows: Groin Site Care [...] Document Reviewed: 08/29/2011 ExitCare? Patient Information ?2014 [employer]. Pharmacology Moderate Conscious Sedation, Adult, Care After [...] you are awake and alert. ??? Take ahvq-ood-lsqxsog and prescription medicines only as told by [...] 05/17/2014 Document Revised: 12/29/2016 Document Reviewed: 11/15/2016 [employer] Interactive Patient Education ? 2017 [employer] Procedures Cardiac Ablation Cardiac ablation is a procedure to stop some heart tissue from causing problems. The heart has many electrical connections. Sometimes these connections cause the heart to beat very fast or irregularly. Removing some of the problem areas can improve heart rhythm or make it normal. Ablation is done for people who: ??? Have Wbhjf-Ugvbehjev-Yniwj syndrome. ??? Have other fast heart rhythms [...] 12/22/2013 Elsevier Interactive Patient Education ? 2017 [employer] documented in this encounter Plan of Treatment Not on file documented as of this encounter Visit Diagnoses Not on filedocumented in this encounter
--- OUTSIDE RECORDS SUMMARY | 2025-04-12 09:12 | XMS_ITS | Encounter Summary ---
Author Organization [employer] ([place], [place], [place], [place]) Address [address] [place] [address] Care Team Providers Care Patent Searcher Name Role Phone Unavailable Primary Care Provider Unavailabl e Encounter Details Date Type Department Care Team (Late st Contact Info) Description 10/15/2018 Transcribed Document [facility] Family Medicine [address] [place] [address] ProviderFeroz MD [address] [place], [place] [address] Social History Tobacco Use Types Packs/Day Years [...] - Historical ProviderMD - 10/15/2018 7:45 AM CROCHETER HAND Event Note Entered On: 10/15/2018 7:46 EST [...]
--- OUTSIDE RECORDS SUMMARY | 2025-04-12 09:12 | XMS_ITS | Encounter Summary ---
Author Organization [employer] ([place], [place], [place], [place]) Address [address] [place] [address] Care Team Providers Care Wax Molder Name Role Phone Unavailable Primary Care Provider Unavailabl e Encounter Details Date Type Department Care Team (Late st Contact Info) Description 10/15/[address] [facility] Family Medicine [address] [place] [address] ProviderFeroz MD [facility] [place], [place] [address] Social History Tobacco Use Types Packs/Day Years [...] Note - Feroz Richter MD - 10/15/2018 10:25 AM BATTER MIXER HELPER DATE OF STUDY: 10/15/2018 ELECTROPHYSIOLOGY REPORT PREOPERATIVE DIAGNOSIS: Lppfq-Jkjtezten-Nlojz with recurrent symptomatic tachycardia. PROCEDURE PERFORMED: Comprehensive [...] infiltrated 1% with 1% lidocaine locally. Two 6-Nicaraguan and two 7-Nicaraguan sheaths were placed in the left femoral vein. A 5-Nicaraguan sheath was placed in the left femoral artery. A 5-Nicaraguan pigtail catheter was placed to level aortic valve plane for continuous arterial pressure monitoring to assist with transseptal cardiac catheterization. A 7-Nicaraguan Decapolar catheter was placed in the coronary sinus. A 6-Nicaraguan Quadripolar catheters were placed to high right [...] through the right femoral vein, a long 9-Nicaraguan sheath and 11-Nicaraguan sheath were introduced. A [employer] Rosas intracardiac [...] was measured and recorded. Next, using a [employer] Rosas STF Curve irrigated ablation catheter in [...] Trans: 10/15/2018 12:32:08 CC1: Vladimir Flanagan M.D. documented in this encounter Plan of Treatment Not on file documented as of this encounter Visit Diagnoses Not on filedocumented in this encounter
--- OUTSIDE RECORDS SUMMARY | 2025-04-12 09:12 | XMS_ITS | Encounter Summary ---
Author Organization [employer] ([place], [place]) Address [address] [place] [address] Care Team Providers Care Photolettering Machine Operator Name Role Phone Unavailable Primary Care Provider Unavailabl e Encounter Details Date Type Department Care Team (Late st Contact Info) Description 10/15/2018 Transcribed Document [facility] [address] [place] [address] ProviderFeroz MD [address] [place] [address] Social History Tobacco Use Types Packs/Day [...] Feroz Richter MD - 10/15/2018 4:48 PM PRINTING MACHINE OPERATOR TAPE [employer]ULES [address] , [place] [address] Patient Copy Patient Information: Name: SARBJIT RILEY Current Date: 10/15/2018 16:48:56 : 2000 Patient Address: [place] [address] Patient Attending Physician: Primary Care Provider: SHANI LUDWIG MD Primary Care Provider Discharge Diagnosis: Weight on Admission: 228 lb, 0 oz Comment: Follow-up Instructions: With: Address: When: BELA MARQUES [address] [place] [address] Business (1) Within 2 weeks [...] Document Reviewed: 08/29/2011 ExitCare? Patient Information ?2014 [employer]. Moderate Conscious Sedation, Adult, Care After These [...] you are awake and alert. ??? Take rmyn-fff-gwxjpgj and prescription medicines only as told by [...] 11/15/2016 Elsevier Interactive Patient Education ? 2017 [employer] Cardiac Ablation Cardiac ablation is a procedure to stop some heart tissue from causing problems. The heart has many electrical connections. Sometimes these connections cause the heart to beat very fast or irregularly. Removing some of the problem areas can improve heart rhythm or make it normal. Ablation is done for people who: ??? Have Hzloy-Pywnlnvyh-Sztxr syndrome. ??? Have other fast heart rhythms [...] 12/22/2013 Elsevier Interactive Patient Education ? 2017 [employer] CIGARETTE SMOKING: The facts are clear, cigarette smoking will shorten your life. Smoking can cause many illnesses along the way. As a healthcare provider, we recommend that you stop smoking. Assistance with quitting is available by contacting 0-541-DNZC-NOW. This is a free resource providing counseling, [...] Be sure to sign up for the [email or web address] patient portal, which gives you 02/03 access to your medical information ??? including these discharge instructions ??? using your computer, smartphone, or tablet. Just go to [employer] to get started. Questions? Call . [facility] would like to thank you for allowing us to assist you with your healthcare needs. I, OSVALDO, SARBJIT DARYL AVTAR, (or international account representative) have received the above patient education materials/instructions and have verbalized understanding: Patient Signature _ Date/Time Patient Bed Maker Signature (if needed) Date/Time Clinician/Hospital Bed Maker Signature (if needed) Date/Time documented in this encounter Plan of Treatment Not on file documented as of this encounter Visit Diagnoses Not on filedocumented in this encounter
--- OUTSIDE RECORDS SUMMARY | 2025-04-12 09:12 | XMS_ITS | Encounter Summary ---
Author Organization [employer] ([place], [place], [place]) Address [address] [place] [address] Care Team Providers Care Golf Course Assistant Name Role Phone Unavailable Primary Care Provider Unavailabl e Encounter Details Date Type Department Care Team (Late st Contact Info) Description 10/15/2018 Transcribed Document [facility] Family Medicine [address] [place] [address] ProviderFeroz MD [address] [place], [place] [address] Social History Tobacco Use Types Packs/Day Years [...] - Feroz ProviderMD - 10/15/2018 4:42 PM JUICE WEIGHER Nursing Discharge Summary Entered On: 10/15/2018 16:43 EST Performed On: 10/15/2018 16:42 EST by RYAN QUINTERO RN Discharge Documentation Patient Disposition, General : Discharge Discharge To : Home with ambulatory/outpatient follow-up Mode Of Departure, General Discharge : Private vehicle Accompanied By, Discharge : Grandparent IV Discontinued : Yes Personal Belongings With Patient : Yes Teaching Method : Demonstration, Explanation Teaching Evaluation : Returns demonstration, Verbalizes understanding RYAN QUINTERO RN - 10/15/2018 16:42 EST Electronically signed by Kateryna [facility] Conversion [employer] Cerner at 11/25/2022 5:03 PM CDT documented in this encounter Plan of Treatment Not on file documented as of this encounter Visit Diagnoses Not on filedocumented in this encounter
--- OUTSIDE RECORDS SUMMARY | 2025-04-12 09:12 | XMS_ITS | Encounter Summary ---
[facility] [address] [place] [address] Care Team Providers Care Rigger Up Name Role Phone Jefe Schwartz MD Primary Care Provider [phone] Encounter Details Date Type Department Care Team (Late st Contact Info) Description 12/15/2024 Results Follow-Up [facility] OBGYN 1700 [facility] [address] [place] [phone] Izaiah Mcdaniels MD 1700 [facility] [address] [place] [address] Social History Tobacco Use Types Packs/Day Years Used Date Smoking Tobacco: Former Cigarettes Q uit: 01/2024 Smokeless Tobacco: Never Comments:Vape. Alcohol Use Standard Drinks/Week Comments Never 0 (1 standard drink = 0.6 oz pur e alcohol) [facility] Utilities Answer Date Recorded In the past 12 months has [employer], gas, oil, or water [employer] threatened to shut off services in your [...] and heating? Not hard at all 12/12/2023 [facility] - Occupational Stress Questionnaire Answer Date [...] things needed for daily living? No 12/12/2023 [place] Depression Scale Answer Date Recorded Retired [place] Depression Score 11 02/23/2024 Retired EPD Scale: [...] GED or equivalent No 12/12/2023 Preferred Language East Timorese 12/12/2023 PHQ-2 Answer Date Recorded Retired PHQ-9: [...] Info) Description 04/17/2025 1:40 PM EDT Visit [facility] OBGYN [address] [place] [address] Aydin Crowe MD [address] [place] [address] documented as of this encounter Visit Diagnoses Not on filedocumented in this encounter Care Teams Rigger Up Relationship Specialty Start Date End Date Jefe Schwartz MD [address] [place] [facility] [address] [place] [address] PCP - General Adolescent Medicine 12/14/23 documented as of this encounter
--- OUTSIDE RECORDS SUMMARY | 2025-04-12 09:12 | XMS_ITS | Encounter Summary ---
Author Organization [employer] ([place], [place], [place], [place]) Address [address] [place] [address] Care Team Providers Care Solid Waste Engineer Name Role Phone Unavailable Primary Care Provider Unavailabl e Encounter Details Date Type Department Care Team (Late st Contact Info) Description 10/15/2018 Transcribed Document [facility] [place] [place] Family Medicine [address] [place] [address] ProviderFeroz MD [address] [place] [address] Social History Tobacco Use Types Packs/Day [...] Feroz Richter MD - 10/15/2018 4:46 PM PURSE SEINER [address] , [place] [address] Patient Copy Patient Information: Name: SARBJIT RILEY Current Date: 10/15/2018 16:46:09 : 2000 Patient Address: [place] [address] Patient Attending Physician: Primary Care Provider: SHANI LUDWIG MD Primary Care Provider Discharge Diagnosis: Weight on Admission: 228 lb, 0 oz Comment: Follow-up Instructions: With: Address: When: BELA MARQUES [address] [place] [address] Business (1) Within 2 weeks [...] Document Reviewed: 08/29/2011 ExitCare? Patient Information ?2014 [facility]. Moderate Conscious Sedation, Adult, Care After These [...] you are awake and alert. ??? Take zdwt-ydm-bbpzkkn and prescription medicines only as told by [...] 05/17/2014 Document Revised: 12/29/2016 Document Reviewed: 11/15/2016 [employer] Interactive Patient Education ? 2017 [employer] Cardiac Ablation Cardiac ablation is a procedure to stop some heart tissue from causing problems. The heart has many electrical connections. Sometimes these connections cause the heart to beat very fast or irregularly. Removing some of the problem areas can improve heart rhythm or make it normal. Ablation is done for people who: ??? Have Tfjgm-Vnemxzbak-Swpmj syndrome. ??? Have other fast heart rhythms [...] 03/29/2014 Document Revised: 01/01/2017 Document Reviewed: 12/22/2013 ElseSnap[employer] Interactive Patient Education ? 2017 [employer] CIGARETTE SMOKING: The facts are clear, cigarette smoking will shorten your life. Smoking can cause many illnesses along the way. As a healthcare provider, we recommend that you stop smoking. Assistance with quitting is available by contacting 9-660-PMKF-NOW. This is a free resource providing counseling, [...] Be sure to sign up for the [employer] patient portal, which gives you 02/03 access to your medical information ??? including these discharge instructions ??? using your computer, smartphone, or tablet. Just go to [employer] to get started. Questions? Call . [facility] would like to thank you for allowing us to assist you with your healthcare needs. OSVALDO Nunes MADISON EVELYN ROSE, (or risk control field representative) have received the above patient education materials/instructions and have verbalized understanding: Patient Signature _ Date/Time Patient Public Transportation Inspector Signature (if needed) Date/Time Clinician/Hospital Public Transportation Inspector Signature (if needed) Date/Time Electronically signed by [facility], [facility] Conversion Inner Diameter Grinder Tool Hitesh at 11/25/2022 5:12 PM CDT documented in this encounter Plan of Treatment Not on file documented as of this encounter Visit Diagnoses Not on filedocumented in this encounter
--- OUTSIDE RECORDS SUMMARY | 2025-04-12 09:12 | XMS_ITS | Encounter Summary ---
[facility] Address [address] [place] [address] Care Team Providers Care Baker Biscuit Name Role Phone Jefe Schwartz MD Primary Care Provider [phone] Encounter Details Date Type Department Care Team (Late st Contact Info) Description 12/26/2024 Results Follow-Up [facility] OBGYN 1700 [facility] [address] [place] [phone] Kelly Patricia, EXECUTIVE CHEF 1700 [facility] [address] [place] [address] Social History Tobacco Use Types Packs/Day Years Used Date Smoking Tobacco: Former Cigarettes Q uit: 01/2024 Smokeless Tobacco: Never Comments:Vape. Alcohol Use Standard Drinks/Week Comments Never 0 (1 standard drink = 0.6 oz pur e alcohol) [facility] Utilities Answer Date Recorded In the past 12 months has [employer], gas, oil, or water [employer] threatened to shut off services in your [...] and heating? Not hard at all 12/30/2024 [facility] - Occupational Stress Questionnaire Answer [...] things needed for daily living? No 12/30/2024 [place] Depression Scale Answer Date Recorded Retired [place] Depression Score 11 02/23/2024 Retired EPD Scale: [...] GED or equivalent No 12/30/2024 Preferred Language Malaysian 12/30/2024 PHQ-2 Answer Date Recorded Patient Health [...] [facility] OBGYN 1700 [facility] [address] [place] [address] Aydin Crowe MD 1700 [facility] [address] [place] [address] documented as of this encounter Visit Diagnoses Not on filedocumented in this encounter Care Teams Baker Biscuit Relationship Specialty Start Date End Date Jefe Schwartz MD 1210 [facility] [address] [place] [address] PCP - General Adolescent Medicine 12/14/23 documented as of this encounter
--- OUTSIDE RECORDS SUMMARY | 2025-04-12 09:12 | XMS_ITS | Encounter Summary ---
Author Organization [employer] ([place], [place], [place], [place]) Address [address] [place] [address] Care Team Providers Care Lawn Sprinkler Servicer Name Role Phone Unavailable Primary Care Provider Unavailabl e Encounter Details Date Type Department Care Team (Late st Contact Info) Description 10/15/2018 Transcribed Document [facility] [place] Family Medicine [address] [place] [address] ProviderFeroz MD [address] [place], [place] [address] Social History Tobacco Use Types Packs/Day Years [...] - Feroz ProviderMD - 10/15/2018 7:32 AM NEWS EDITOR Pre Procedure Adult Entered On: 10/15/2018 7:38 EST Performed On: 10/15/2018 7:32 EST by DILMA WHELAN RN Height and Weight, Clinical Dosing Height Source : Stated Height Entry Format : [place] Height, Feet : 0 ft(Converted to: 0 cm, 0 Inch) Height, Inches : 65 Inch(Converted to: 5 ft 5 Inch, 165.10 cm) Clinical Height : 165.1 cm Weight Source : Standing scale Weight Entry Format : [place] Clinical Dosing Weight : 103.64 kg Weight, Pounds : 228 lb Body Surface Area (BSA) : 2.09 m2 Body Mass Index : 38 kg/m2 (HI) [place] Body Weight : 57 kg DILMA WHELAN [...] Emergency Contact #1 : Aravind kohler - [phone] Emergency Contact #1 Phone Number : - Emergency Contact #1 Relationship : - Emergency Contact #2 : - Emergency Contact #2 Phone Number : - Emergency Contact #2 Relationship : - Primary Language : Indian Communication Barrier : None DILMA WHELAN RN [...] Scale Risk Level : 0-24 Low Risk [place] Fall Interventions : Wheels locked DILMA WHELAN [...]
--- OUTSIDE RECORDS SUMMARY | 2025-04-12 09:12 | XMS_ITS | Referral Summary ---
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
--- OUTSIDE RECORDS SUMMARY | 2025-04-12 09:12 | XMS_ITS | Clinical Summary ---
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
--- OUTSIDE RECORDS SUMMARY | 2025-04-12 09:12 | XMS_ITS | Encounter Summary ---
Author Organization [employer] ([place], [place], [place], [place]) Address [address] [place] [address] Care Team Providers Care Continuous Wave Operator Name Role Phone Unavailable Primary Care Provider Unavailabl e Encounter Details Date Type Department Care Team (Late st Contact Info) Description 10/15/2018 Transcribed Document [facility] [place] Family Medicine [address] [place] [address] ProviderFeroz MD [address] [place], [place] [address] Social History Tobacco Use Types Packs/Day Years [...] - Historical ProviderMD - 10/15/2018 2:25 PM PARK AIDE Event Note Entered On: 10/15/2018 14:25 EST [...]
--- OUTSIDE RECORDS SUMMARY | 2025-04-12 09:12 | XMS_ITS | Encounter Summary ---
Author Organization [employer] ([place], [place], [place], [place]) Address [address] [place] [address] Care Team Providers Care Hospital Product Specialist Name Role Phone Unavailable Primary Care Provider Unavailabl e Encounter Details Date Type Department Care Team (Late st Contact Info) Description 10/15/2018 Transcribed Document [facility] [place] [address] [place] [address] ProviderFeroz MD [address] [place], [place] [address] Social History Tobacco Use Types Packs/Day Years [...] - Feroz ProviderMD - 10/15/2018 4:44 PM HEARING SPECIALIST Discharge Instructions Entered On: 10/15/2018 16:45 EST Performed On: 10/15/2018 16:44 EST by RYAN QIUNTERO RN DC Instructions HWD Stroke/TIA Discharge Ins [...] 10/15/2018 16:47 EST Electronically signed by Kateryna, [facility] Conversion Gas Plant Dispatcher Cerner at 11/25/2022 5:17 PM CDT documented in this encounter Plan of Treatment Not on file documented as of this encounter Visit Diagnoses Not on filedocumented in this encounter
--- OUTSIDE RECORDS SUMMARY | 2025-04-12 09:13 | XMS_ITS | Encounter Summary ---
[facility] Address [address] [place] [address] Care Team Providers Care Operations And Maintenance Supervisor Name Role Phone Jefe Schwartz MD Primary Care Provider [phone] Encounter Details Date Type Department Care Team (Late st Contact Info) Description 02/07/2025 Results Follow-Up [facility] OBGYN 1700 [facility] [address] [place] [phone] Aydin Crowe MD 1700 [facility] [address] [place] [address] Social History Tobacco Use Types Packs/Day Years Used Date Smoking Tobacco: Former Cigarettes Q uit: 01/2024 Smokeless Tobacco: Never Comments:Vape. Alcohol Use Standard Drinks/Week Comments Never 0 (1 standard drink = 0.6 oz pur e alcohol) [facility] Utilities Answer Date Recorded In the past 12 months has [employer], gas, oil, or water [employer] threatened to shut off services in your [...] and heating? Not hard at all 01/23/2025 [facility] - Occupational Stress Questionnaire [...] things needed for daily living? No 01/23/2025 [place] Depression Scale Answer Date Recorded Retired [place] Depression Score 11 02/23/2024 Retired EPD Scale: [...] none 01/23/2025 Family and Community Support Answer Jayosn e [...] GED or equivalent No 01/23/2025 Preferred Language Chadian 01/23/2025 PHQ-2 Answer Date Recorded Patient Health [...] Info) Description 04/17/2025 1:40 PM EDT Visit [facility] OBGYN [address] [address] Aydin Crowe MD [address] [address] documented as of this encounter Visit Diagnoses Not on filedocumented in this encounter Care Teams Operations And Maintenance Supervisor Relationship Specialty Start Date End Date Jefe Schwartz MD 1210 [facility] [address] [place] [address] PCP - General Adolescent Medicine 12/14/23 documented as of this encounter
--- OUTSIDE RECORDS SUMMARY | 2025-04-12 09:13 | XMS_ITS | Encounter Summary ---
Author Organization [facility] Address [address] [place] [address] Care Team Providers Care Slasher Hand Name Role Phone Jefe Schwartz MD Primary Care Provider [phone] Encounter Details Date Type Department Care Team (Late st Contact Info) Description 11/25/2024 Results Follow-Up [facility] [address] [place] [phone] Izaiah Mcdaniels MD 1700 [facility] [address] [place] [phone] Social History Tobacco Use Types Packs/Day Years Used Date Smoking Tobacco: Former Cigarettes Q uit: 01/2024 Smokeless Tobacco: Never Comments:Vape. Alcohol Use Standard Drinks/Week Comments Never 0 (1 standard drink = 0.6 oz pur e alcohol) [facility] Utilities Answer Date Recorded In the past 12 months has [employer], [employer], oil, or water [employer] threatened to shut off services in your [...] and heating? Not hard at all 12/12/2023 [facility] [place] of Occupat ional Health - Occupational Stress [...] things needed for daily living? No 12/12/2023 [place] Depression Scale Answer Date Recorded Retired [place] Depression Score 11 02/23/2024 Retired EPD Scale: [...] GED or equivalent No 12/12/2023 Preferred Language Estonian 12/12/2023 PHQ-2 Answer Date Recorded Retired PHQ-9: [...] EDT Visit [facility] OBGYN 1700 [facility] [address] [place] [address] Aydin Crowe MD 1700 [facility] [address] [place] [address] documented as of this encounter Visit Diagnoses Not on filedocumented in this encounter Care Teams Slasher Hand Relationship Specialty Start Date End Date Jefe Schwartz MD 1210 [facility] [address] [place] [address] PCP - General Adolescent Medicine 12/14/23 documented as of this encounter
--- OUTSIDE RECORDS SUMMARY | 2025-04-12 09:13 | XMS_ITS | Encounter Summary ---
Author Organization [facility] Address [address] [place] [address] Care Team Providers Care Meteorology Professor Name Role Phone Jefe Schwratz MD Primary Care Provider [phone] Encounter Details Date Type Department Care Team (Latest Contact Info) Description 02/23/2025 Travel Social History Tobacco Use Types Packs/Day Years Used Date Smoking Tobacco: Former Cigarettes Q uit: 01/2024 Smokeless Tobacco: Never Comments:Vape. Alcohol Use Standard Drinks/Week Comments Never 0 (1 standard drink = 0.6 oz pur e alcohol) [facility] Utilities Answer Date Recorded In the past 12 months has [employer], gas, oil, or water company threatened [...] and heating? Not hard at all 02/18/2025 [facility] [place] of Occupat ional Health - Occupational Stress [...] things needed for daily living? No 02/18/2025 [place] Depression Scale Answer Date Recorded Retired [place] Depression Score 11 02/23/2024 Retired EPD Scale: [...] GED or equivalent No 02/18/2025 Preferred Language Macanese 02/18/2025 PHQ-2 Answer Date Recorded Patient Health [...] Visit [facility] OBGYN 1700 [facility] [address] [place] [address] Aydin Crowe MD 1700 [facility] [address] [place] [address] documented as of this encounter Visit Diagnoses Not on filedocumented in this encounter Care Teams Meteorology Professor Relationship Specialty Start Date End Date Jefe Schwartz MD 1210 [facility] [address] [place] [address] PCP - General Adolescent Medicine 12/14/23 documented as of this encounter
--- OUTSIDE RECORDS SUMMARY | 2025-04-12 09:13 | XMS_ITS | Encounter Summary ---
[facility] Address [address] [place] [address] Care Team Providers Care Xm1 Tank Driver Name Role Phone Jefe Schwartz MD Primary Care Provider [phone] Encounter Details Date Type Department Care Team (Late st Contact Info) Description 01/12/2025 Results Follow-Up [facility] OBGYN 1700 [facility] [address] [place] [phone] Izaiah Mcdaniels MD 1700 [facility] [address] [place] [address] Social History Tobacco Use Types Packs/Day Years Used Date Smoking Tobacco: Former Cigarettes Q uit: 01/2024 Smokeless Tobacco: Never Comments:Vape. Alcohol Use Standard Drinks/Week Comments Never 0 (1 standard drink = 0.6 oz pur e alcohol) [facility] Utilities Answer Date Recorded In the past 12 months has [employer], gas, oil, or water [employer] threatened to shut off services in your [...] and heating? Not hard at all 12/30/2024 [facility] - Occupational Stress Questionnaire Answer Date [...] things needed for daily living? No 12/30/2024 [place] Depression Scale Answer Date Recorded Retired [place] Depression Score 11 02/23/2024 Retired EPD Scale: [...] GED or equivalent No 12/30/2024 Preferred Language Bolivian 12/30/2024 PHQ-2 Answer Date Recorded Patient Health [...] 04/17/2025 1:40 PM EDT Visit [facility] OBGYN [address] [place] [address] Aydin Crowe MD [address] [place] [address] Scheduled Orders Name Type Priority Associated Diagnoses Orde r Schedule Gestational Screen 1 Hr ([facility]) Lab Routine , unspecified gestational age Morbid obesity with BMI of 45.0-49.9, adult Expected: 01/26/2025 (Approximate), Expires: 04/14/2026 documented as of this encounter Visit Diagnoses Diagnosis , unspecified gestational age- Primary Morbid obesity with BMI of 45.0-49.9, adult documented in this encounter Care Teams Xm1 Tank Driver Relationship Specialty Start Date End Date Jefe Schwartz MD [facility] [address] [facility] [address] [place] [address] PCP - General Adolescent Medicine 12/14/23 documented as of this encounter
--- OUTSIDE RECORDS SUMMARY | 2025-04-12 09:13 | XMS_ITS | Clinical Summary ---
Author Organization [facility] Address [address] [place] [address] Care Team Providers Care Structural Worker Name Role Phone System, Provider Not In [...] Description 02/13/2025 Community Orders [facility] [address] [place] [address] Izaiah Mcdaniels MD Proteinuria complicating , unspecified trimester (Primary Dx) 01/11/2025 3:40 PM EDT Office Visit [facility] Mineral Met[facility] [address] [facility], [address] [place] [address] Duke White MD Proteinuria complicating [...] Description 06/30/2025 1:20 PM EST Office Visit [facility] [address] [place] [address] Duke White MD [address] [place] [phone] Health Maintenance Due Date Last Done Comments [facility]-/Child/Adol SDOH Screenings 2000 [facility]-Varicella Vaccines (2 of 2 - 2-dose childhood series) 06/09/2005 03/17/2005 HPV Vaccines (1 - 3-dose series) 2015 [facility]- SDOH Screenings 2018 [facility]-Adult SDOH Screenings 2018 [facility]-OLPYS-66 Vaccine (4 - season) 2024 05/22/2021, 09/12/2020, [...] Reactive Non Reactive 10/06/2024 6:03 PM EST [facility] Comment:Screening for HIV 1 & 2 antibodies, and P24 antigen is NONREACTIVE. No confirmatory testing is required. Blood Venous blood specimen / Unknown Venipuncture / Unknown 10/06/2024 3:25 PM EST 10/06/2024 3:25 PM EST us Aston Meyer MD LAB BLOOD ORDERABLES Final Resul t Performing Organization Address City/[facility] Co de Phone Number [facility] [address] [place] [address] * Acute Hepatitis Panel (10/06/2024 3:25 PM EST) Hepatitis B Surf Antigen Negative Negative 10/06/2024 7:03 PM EST [facility] Hepatitis C Antibody Negative Negative 10/06/2024 7:03 PM EST [facility] Hepatitis A Antibody IgM Negative Negative 10/06/2024 7:03 PM EST [facility] Hepatitis B Core Antibody IgM Negative Negative 10/06/2024 7:03 PM EST [facility] Blood Venous blood specimen / Unknown Venipuncture / Unknown 10/06/2024 3:25 PM EST 10/06/2024 3:25 PM EST us Aston Meyer MD LAB BLOOD ORDERABLES Final Resul t Performing Organization Address City/[facility] Co de Phone Number [facility] [address] [place] [address] from Last 3 Months or Most Recently Relevant to Health Maintenance Insurance [facility] [facility]ICAID [facility] Care Teams Structural Worker Relationship Specialty Start Date End Date System, Provider Not In, [address] [place] [address] PCP - General Family Medicine 09/29/24
--- OUTSIDE RECORDS SUMMARY | 2025-04-12 09:13 | XMS_ITS | Encounter Summary ---
Author Organization [facility] Address [address] [place] [address] Care Team Providers Care Technical Manager Name Role Phone Jefe Schwartz MD Primary Care Provider [phone] Encounter Details Date Type Department Care Team [...] Recorded In the past 12 months has [employer], gas, oil, or water company threatened [...] and heating? Not hard at all 02/18/2025 [facility] [place] of Occupat ional Health - Occupational Stress [...] things needed for daily living? No 02/18/2025 [place] Depression Scale Answer Date Recorded Retired [place] Depression Score 11 02/23/2024 Retired EPD Scale: [...] GED or equivalent No 02/18/2025 Preferred Language Korean 02/18/2025 PHQ-2 Answer Date Recorded Patient Health [...] Visit [facility] OBGYN 1700 [facility] [address] [place] [address] Aydin Crowe MD 1700 [facility] [address] [place] [address] documented as of this encounter Visit Diagnoses Not on filedocumented in this encounter Care Teams Technical Manager Relationship Specialty Start Date End Date Jefe Schwartz MD 1210 [facility] [address] [place] [address] PCP - General Adolescent Medicine 12/14/23 documented as of this encounter
--- OUTSIDE RECORDS SUMMARY | 2025-04-12 09:13 | XMS_ITS | Encounter Summary ---
[facility] Address [address] [place] [address] Care Team Providers Care Inspector Subassemblies Name Role Phone Jefe Schwartz MD Primary Care Provider [phone] Encounter Details Date Type Department Care Team (Late st Contact Info) Description 02/11/2025 Results Follow-Up [facility] OBGYN [address] [place] [address] Shania Schwab, DIRECTOR INTERNAL CONTROL 1700 [facility] [address] [place] [address] Social History Tobacco Use Types Packs/Day Years Used Date Smoking Tobacco: Former Cigarettes Q uit: 01/2024 Smokeless Tobacco: Never Comments:Vape. Alcohol Use Standard Drinks/Week Comments Never 0 (1 standard drink = 0.6 oz pur e alcohol) [facility] Utilities Answer Date Recorded In the past 12 months has [employer], gas, oil, or water [employer] threatened to shut off services in your [...] and heating? Not hard at all 01/23/2025 [facility] - Occupational Stress [...] things needed for daily living? No 01/23/2025 [place] Depression Scale Answer Date Recorded Retired [place] Depression Score 11 02/23/2024 Retired EPD Scale: [...] GED or equivalent No 01/23/2025 Preferred Language Greek 01/23/2025 PHQ-2 Answer Date Recorded Patient Health [...] Visit [facility] OBGYN [address] [facility] [address] [place] [address] Aydin Crowe MD [address] [facility] [address] [place] [address] documented as of this encounter Visit Diagnoses Diagnosis BV (bacterial vaginosis)- Primary Unspecified vaginitis and vulvovaginitis documented in this encounter Care Teams Inspector Subassemblies Relationship Specialty Start Date End Date Jefe Schwartz MD 1210 [place] [facility] [address] [facility] [address] [place] [address] PCP - General Adolescent Medicine 12/14/23 documented as of this encounter
--- OUTSIDE RECORDS SUMMARY | 2025-04-12 09:13 | XMS_ITS | Encounter Summary ---
Author Organization [facility] Address [address] [place] [address] Care Team Providers Care Meat Manager Name Role Phone Jefe Schwartz MD Primary Care Provider [phone] Encounter Details Date Type Department Care Team (Late st Contact Info) Description 02/27/2025 Prep for Surgery [facility] ORDERS ONLY [address] [place] [address] Aydin Crowe MD 1700 [facility] [address] [place] [address] Social History Tobacco Use Types Packs/Day Years Used Date Smoking Tobacco: Former Cigarettes Q uit: 01/2024 Smokeless Tobacco: Never Comments:Vape. Alcohol Use Standard Drinks/Week Comments Never 0 (1 standard drink = 0.6 oz pur e alcohol) [facility] Utilities Answer Date Recorded In the past 12 months has [place], gas, oil, or water [employer] threatened to shut off services in your [...] and heating? Not hard at all 02/18/2025 [place] of Occupat ional Health - Occupational Stress [...] things needed for daily living? No 02/18/2025 [place] Depression Scale Answer Date Recorded Retired [place] Depression Score 11 02/23/2024 Retired EPD Scale: [...] Info) Description 04/17/2025 1:40 PM EDT Visit [facility] OBGYN 1700 [facility] [address] [place] [address] Aydin Crowe MD 1700 [facility] [address] [place] [address] documented as of this encounter Visit Diagnoses Not on filedocumented in this encounter Care Teams Meat Manager Relationship Specialty Start Date End Date Jefe Schwartz MD [address] [facility] [facility] [address] [place] [address] PCP - General Adolescent Medicine 12/14/23 documented as of this encounter
--- OUTSIDE RECORDS SUMMARY | 2025-04-12 09:13 | XMS_ITS | Encounter Summary ---
Author Organization Healthcare Address [address] [place] [address] Care Team Providers Care Caretaker Name Role Phone System, Provider Not In MD Primary Care Provider Unavailable Reason for Referral * Consultation (Routine) - Authorized Specialty Diagnoses / Procedures Referred By Jeanne roberts Referred To Contact Nephrology Diagnoses Proteinuria complicating , unspecified trimester Izaiah Mcdaniels MD [address] [facility] [address] [place] [address] Phone: tel: fax: [facility] [place] [address] [facility] [address] [facility], [address] [place] [address] Phone: tel: fax: Referral ID Status Reason Start Date Expiration Date Visits Requested Visits Authorized [id number] Authorized Specialty Services Required 02/13/2025 08/15/2026 1 1 Encounter Details Date Type Department Care Team (Late st Contact Info) Description 02/13/2025 Community Orders [facility] [address] [place] [address] Izaiah Mcdaniels MD [address] [place] [address] Proteinuria complicating , unspecified trimester (Primary Dx) [...] Description 06/30/2025 1:20 PM EST Office Visit [facility] [address] [place] [address] Duke White MD [address] [phone] Scheduled Referrals Name Type Priority Associated Diagnoses [...] documented as of this encounter Care Teams Caretaker Relationship Specialty Start Date End Date System, Provider Not In, [address] [place] [address] PCP - General Family Medicine 09/29/24 documented as of this encounter
--- OUTSIDE RECORDS SUMMARY | 2025-04-12 09:13 | XMS_ITS | Encounter Summary ---
Author Organization [facility] Address [address] [place] [address] Care Team Providers Care Home Energy Rater Name Role Phone Jefe Schwartz MD Primary Care Provider [phone] Encounter Details Date Type Department Care Team (Latest Contact Info) Description 02/27/2025 Travel Social History Tobacco Use Types Packs/Day Years Used Date Smoking Tobacco: Former Cigarettes Q uit: 01/2024 Smokeless Tobacco: Never Comments:Vape. Alcohol Use Standard Drinks/Week Comments Never 0 (1 standard drink = 0.6 oz pur e alcohol) [facility] Utilities Answer Date Recorded In the past 12 months has [place] electric, gas, oil, or water company threatened [...] heating? Not hard at all 02/18/2025 [facility] [place] of Occupat ional Health - Occupational Stress [...] things needed for daily living? No 02/18/2025 [place] Depression Scale Answer Date Recorded Retired [place] Depression Score 11 02/23/2024 Retired EPD Scale: [...] GED or equivalent No 02/18/2025 Preferred Language Palestinian 02/18/2025 PHQ-2 Answer Date Recorded Patient Health [...] Info) Description 04/17/2025 1:40 PM EDT Visit [facility] OBGYN 1700 [facility] [address] [place] [address] Aydin Crowe MD 1700 [facility] [address] [place] [address] documented as of this encounter Visit Diagnoses Not on filedocumented in this encounter Care Teams Home Energy Rater Relationship Specialty Start Date End Date Jefe Schwartz MD 1210 [facility] [address] [place] [address] PCP - General Adolescent Medicine 12/14/23 documented as of this encounter
--- OUTSIDE RECORDS SUMMARY | 2025-04-12 09:14 | XMS_ITS | Encounter Summary ---
Author Organization [facility] Address [address] [place] [address] Care Team Providers Care Community Relations Advisor Name Role Phone Jefe Schwartz MD Primary Care Provider [phone] Encounter Details Date Type Department Care Team (Latest Contact Info) Description 02/20/2025 Travel Social History Tobacco Use Types Packs/Day Years Used Date Smoking Tobacco: Former Cigarettes Q uit: 01/2024 Smokeless Tobacco: Never Comments:Vape. Alcohol Use Standard Drinks/Week Comments Never 0 (1 standard drink = 0.6 oz pur e alcohol) [facility] Utilities Answer Date Recorded In the past 12 months has [employer], gas, oil, or water company threatened [...] Not hard at all 02/18/2025 [facility] of Occupat ional Health - Occupational Stress [...] things needed for daily living? No 02/18/2025 [place] Depression Scale Answer Date Recorded Retired [...] GED or equivalent No 02/18/2025 Preferred Language Indonesian 02/18/2025 PHQ-2 Answer Date Recorded Patient Health [...] Visit [facility] OBGYN 1700 [facility] [address] [place] [address] Aydin Crowe MD 1700 [facility] [address] [place] [address] documented as of this encounter Visit Diagnoses Not on filedocumented in this encounter Care Teams Community Relations Advisor Relationship Specialty Start Date End Date Jefe Schwartz MD 1210 [facility] [address] [place] [address] PCP - General Adolescent Medicine 12/14/23 documented as of this encounter
--- OUTSIDE RECORDS SUMMARY | 2025-04-12 09:14 | XMS_ITS | Encounter Summary ---
Author Organization [facility] Address [address] [place] [address] Care Team Providers Care Residential Treatment Specialist Name Role Phone Jefe Schwartz MD Primary Care Provider [phone] Encounter Details Date Type Department Care Team (Latest Contact Info) Description 02/16/2025 Travel Social History Tobacco Use Types Packs/Day Years Used Date Smoking Tobacco: Former Cigarettes Q uit: 01/2024 Smokeless Tobacco: Never Comments:Vape. Alcohol Use Standard Drinks/Week Comments Never 0 (1 standard drink = 0.6 oz pur e alcohol) [facility] Utilities Answer Date Recorded In the past [address], gas, oil, or water company threatened [...] heating? Not hard at all 01/23/2025 [facility] [place] of Occupat ional Health - Occupational Stress [...] things needed for daily living? No 01/23/2025 [place] Depression Scale Answer Date Recorded Retired [place] Depression Score 11 02/23/2024 Retired EPD Scale: [...] GED or equivalent No 01/23/2025 Preferred Language Bulgarian 01/23/2025 PHQ-2 Answer Date Recorded Patient Health [...] Visit [facility] OBGYN 1700 [facility] [address] [place] [address] Aydin Crowe MD 1700 [facility] [address] [place] [address] documented as of this encounter Visit Diagnoses Not on filedocumented in this encounter Care Teams Residential Treatment Specialist Relationship Specialty Start Date End Date Jefe Schwartz MD 1210 [facility] [address] [place] [address] PCP - General Adolescent Medicine 12/14/23 documented as of this encounter
--- OUTSIDE RECORDS SUMMARY | 2025-04-12 09:14 | XMS_ITS | Encounter Summary ---
Author Organization [facility] Address [address] [place] [address] Care Team Providers Care Top Lift Cutter Name Role Phone Jefe Schwartz MD Primary Care Provider [phone] Encounter Details Date Type Department Care Team (Latest Contact Info) Description 02/13/2025 Travel Social History Tobacco Use Types Packs/Day Years Used Date Smoking Tobacco: Former Cigarettes Q uit: 01/2024 Smokeless Tobacco: Never Comments:Vape. Alcohol Use Standard Drinks/Week Comments Never 0 (1 standard drink = 0.6 oz pur e alcohol) [facility] Utilities Answer Date Recorded In the past 12 months has [employer] electric, gas, oil, or water company threatened [...] and heating? Not hard at all 01/23/2025 [facility] [place] of Occupat ional Health - Occupational Stress [...] things needed for daily living? No 01/23/2025 [place] Depression Scale Answer Date Recorded Retired [place] Depression Score 11 02/23/2024 Retired EPD Scale: [...] GED or equivalent No 01/23/2025 Preferred Language Brazilian 01/23/2025 PHQ-2 Answer Date Recorded Patient Health [...] Info) Description 04/17/2025 1:40 PM EDT Visit [facility] OBGYN 1700 [facility] [address] [place] [address] Aydin Crowe MD 1700 [facility] [address] [place] [address] documented as of this encounter Visit Diagnoses Not on filedocumented in this encounter Care Teams Top Lift Cutter Relationship Specialty Start Date End Date Jefe Schwartz MD 1210 [facility] [address] [place] [address] PCP - General Adolescent Medicine 12/14/23 documented as of this encounter
--- OUTSIDE RECORDS SUMMARY | 2025-04-12 09:14 | XMS_ITS | Encounter Summary ---
Author Organization [facility] Address [address] [place] [address] Care Team Providers Care Plastics Patternmaker Name Role Phone Jefe Schwartz MD Primary Care Provider [phone] Encounter Details Date Type Department Care Team (Latest Contact Info) Description 02/18/2025 Travel Social History Tobacco Use Types Packs/Day Years Used Date Smoking Tobacco: Former Cigarettes Q uit: 01/2024 Smokeless Tobacco: Never Comments:Vape. Alcohol Use Standard Drinks/Week Comments Never 0 (1 standard drink = 0.6 oz pur e alcohol) [facility] Utilities Answer Date Recorded In the past 12 months has [employer] electric, gas, oil, or water company threatened [...] and heating? Not hard at all 02/18/2025 [facility] [place] of Occupat ional Health - Occupational Stress [...] things needed for daily living? No 02/18/2025 [place] Depression Scale Answer Date Recorded Retired [place] Depression Score 11 02/23/2024 Retired EPD Scale: [...] GED or equivalent No 02/18/2025 Preferred Language Peruvian 02/18/2025 PHQ-2 Answer Date Recorded Patient Health [...] 10:41 PM EDT Lalito Evans RN * [place] Suicide Severity Rating Scale (Screener/Recent Self-Report) Question [...] EDT Visit [facility] OBGYN [address] [facility] [address] [place] [address] Aydin Crowe MD [address] [place] [id number] documented as of this encounter Visit Diagnoses Not on filedocumented in this encounter Care Teams Plastics Patternmaker Relationship Specialty Start Date End Date Jefe Schwartz MD 1210 [facility] [address] [facility] [address] [place] [address] PCP - General Adolescent Medicine 12/14/23 documented as of this encounter
--- OUTSIDE RECORDS SUMMARY | 2025-04-12 09:14 | XMS_ITS | Clinical Summary ---
Author Organization [facility] Address [address] [place] [id number] Care Team Providers Care Medical Technologist Chief Name Role Phone Jefe Schwartz MD Primary Care Provider [phone] Allergies Active Allergy Reactions Criticality Noted Date [...] elevated. >UA 6.5 11/09/2024 anomaly scan at [facility] Worsening of iron deficiency anemia. Hematocrit [...] labetalol daily. Patient has a history of Bvgrm-Mymxvjndi-Ovzsi syndrome and underwent an ablation at the [...] Further, a committee opinion published by the [employer] in April [...] women at high risk for preeclampsia ([employer] 2014; 161:819). In a 2020 update, [...] Overview (10/12/2024): BMI 44 Anomaly scan at [facility]. 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 Fernando in [place] Echo & 2 week holter monitor in August 2023 wnl per patient. PDC appt 11/04; ultrasound within normal limits and normal growth. EFW 57%. No follow-up ultrasound scheduled. Assessment & Plan (11/05/2023 12:32 PM EDT): Patient currently followed by cardiology in [place]. Patient with a history of SVT but has also had cardiac ablation. Patient reports a normal echo and Holter monitor performed in August. Patient asymptomatic today. Given his history patient will likely tolerate well without issues though given cardiac history patient could consider cardiology consultation within [facility] in case patient were to have [...] [facility] care @ 28 weeks [facility]. 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 Anemia 28 weeks hematocrit 29%.: on iron. PDC u/s 30 wk; EFW 57% Growth ultrasound 12/01 EFW 48%. AC 66%. Screening for cervical cancer 10/26/2023 10/26/2023 Overview (10/26/2023): Last Pap smear? Chronic hypertension affecting 10/26/2023 07/25/2024 Overview (12/10/2023): Transfer of care at [address] Cordero in [place] Baseline PEP, 24 Hour urine, HGBA1C, TSH drawn at [facility] (29wk); not on medication No meds [...] on hypertensive meds. Blood pressure today 115/67. Oblby-Yqfwudtcc-Uhifi syndrome 10/26/2023 10/26/2023 Maternal anemia in , antepartum 10/26/2023 07/25/2024 Overview (12/02/2023): On iron supplementation. 11/05/2023 HCT 29.1%. 11/18/2023 Rx Accrufer 30 mg bid Encounters Date Type Department Care Team Description 03/17/2025 Maternal Screening [facility] [address] [place] [address] Ivanna Downing, SUKUMAR 03/09/2025 Maternal Screening [facility] [address] [place] [address] Aracelis Mueller RN 03/06/2025 5:06 AM EDT Anesthesia Event [facility] DEL[facility] [address] [place] [address] Mami Balbuena MD 03/06/2025 12:04 AM EDT - 03/08/2025 10:40 AM EDT Hospital Encounter [facility] 4B [address] [place] [address] Zahira Kirkpatrick MD Discharge Disposition: Home or Self Care 03/06/2025 Travel 03/06/2025 - 03/06/2025 11:59 PM EDT Hospital Encounter [facility] AND DELIVERY PROCEDURES [address] [place] [address] Discharge Disposition: Home or Self Care 03/02/2025 9:30 AM EDT Routine [facility] [address] [address] Kartik Maurice APRN GA: 36w3d 03/02/2025 Travel 02/27/2025 10:50 AM EDT Ancillary Procedure [facility] [address] [address] 36 weeks gestation of ; Chronic hypertension affecting 02/27/2025 9:40 AM EDT Routine [facility] [address] [address] Zahira Kirkpatrick MD GA: 36w0d 02/27/2025 Prep for Surgery [facility] [address] [place] [address] Zahira Kirkpatrick MD 02/27/2025 Travel 02/23/2025 3:15 PM EDT Routine [facility] [address] [facility] [address] [place] [address] Kartik Maurice, GRINDER GEAR GA: 35w3d 02/23/2025 2:15 PM EDT Office Visit [facility] [address] [facility] [address] [place] [address] Medhat De Anda MD Chronic hypertension affecting (Primary Dx); Poor growth affecting management of mother in third trimester, single or unspecified fetus 02/23/2025 2:03 PM EDT - 02/23/2025 11:59 PM EDT Hospital Encounter [facility] PER DIAG [facility] [address] [place] [address] Zahira Kirkpatrick MD Poor growth affecting management of mother in third trimester, single or unspecified fetus Discharge Disposition: Home or Self Care 02/23/2025 Travel 02/20/2025 9:50 AM EDT Routine [facility] [address] [facility] [address] [place] [address] Zahira Kirkpatrick MD GA: 35w0d 02/20/2025 Travel 02/18/2025 10:19 PM EDT - 02/19/2025 8:03 AM EDT Hospital Encounter [facility] DEL[facility] [address] [place] [address] Zahira Kirkpatrick MD Forester, Corey Blake, MD Discharge Disposition: Home or Self Care 02/18/2025 Travel 02/16/2025 2:15 PM EDT Routine [facility] [address] [facility] [address] [place] [address] Kartik Maurice APRN GA: 34w3d 02/16/2025 Travel 02/13/2025 7:05 PM EDT Lab [facility] [address] [place] [address] care, third trimester 02/13/2025 9:30 AM EDT Routine [facility] [address] [address] Zahira Kirkpatrick MD GA: 34w0d 02/13/2025 Travel 02/11/2025 Results Follow-Up [facility] [address] [address] Shania Schwab APRN 02/09/2025 11:15 AM EDT Routine [facility] [address] [address] Shania Schwab APRN GA: 33w3d 02/09/2025 Travel 02/07/2025 Results Follow-Up [facility] [address] [address] Zahira Kirkpatrick MD 02/06/2025 1:10 PM EDT Routine [facility] [address] [address] Zahira Kirkpatrick MD GA: 33w0d 02/06/2025 Travel 02/03/2025 3:30 PM EDT Ancillary Procedure [facility] [address] [address] History of pre-eclampsia in prior , currently ; 32 weeks gestation of ; Essential hypertension; NST (non-stress test) nonreactive 02/03/2025 2:30 PM EDT Routine [facility] [address] [place] [address] Jose LHaroldoobed Anna APRN GA: 32w4d 02/03/2025 Travel 01/30/2025 Telephone [facility] [address] [place] [place] [address] Zahira Kirkpatrick MD 01/23/2025 9:29 PM EDT - 01/27/2025 1:22 PM EDT Hospital Encounter [facility] ANTEPARTUM [address] [place] [address] Arturo Feliz MD Gardner, Lex J, MD Discharge Disposition: Home or Self Care 01/23/2025 Travel 01/18/2025 Telephone [facility] [address] [place] [address] Arturo Feliz MD 01/12/2025 Results Follow-Up [facility] [address] [place] [address] [place] [address] Arturo Feliz MD 01/11/2025 10:15 AM EDT Routine [facility] [address] [place] [address] Arturo Feliz MD GA: 29w2d 01/11/2025 9:15 AM EDT Office Visit [facility] [address] [place] [address] Rashad Mayer MD History of pre-eclampsia in prior , currently (Primary Dx); Proteinuria affecting , antepartum; Essential hypertension 01/11/2025 9:09 AM EDT - 01/11/2025 11:59 PM EDT Hospital Encounter [facility] [address] [place] [address] Rashad Mayer MD History of pre-eclampsia in prior , currently ; , unspecified gestational age; Proteinuria affecting , antepartum; Morbid obesity with BMI of 45.0-49.9, adult; WPW (Fsyms-Gdsezxnzs-Cm ite syndrome); Essential hypertension Discharge Disposition: Home [...] drink = 0.6 oz pur e alcohol) [facility] Utilities Answer Date Recorded In the past 12 months has [place], gas, oil, or water [employer] threatened to shut off services in your [...] heating? Not hard at all 03/06/2025 [facility] of Occupat ional Health - Occupational Stress [...] things needed for daily living? No 03/06/2025 [place] Depression Scale Answer Date Recorded [place] Depression Scale Total 2 03/17/2025 The thought [...] GED or equivalent No 03/06/2025 Preferred Language Greenlandic 03/06/2025 PHQ-2 Answer Date Recorded Patient Health [...] Info) Description 04/17/2025 1:40 PM EDT Visit [facility] [address] [place] [place] [address] Zahira Kirkpatrick MD [address] [facility] [address] [place] [address] Health Maintenance Due Date Last Done Comments Annual Gynecologic Pelvic and Breast Exam 2000 HPV VACCINES (1 - 3-dose series) 2015 ANNUAL PHYSICAL 10/26/2023 COVID-19 Vaccine ( season) 2025 05/22/2021, 09/12/2020, 08/22/2020 INFLUENZA VACCINE 05/10/2025 05/10/2018 [...] weeks gestation of SCANNED - PROCEDURE 02/03/2025 [facility] CLYDE Routine 01/25/2025 11:10 AM EDT POCT AMNISURE [...] 01/11/2025 10:05 AM EDT care, antepartum, unspecified [facility] Routine 01/11/2025 9:42 AM EDT History of pre-eclampsia in prior , currently , unspecified gestational age Proteinuria affecting , antepartum Morbid obesity with BMI of 45.0-49.9, adult WPW (Vkkop-Qoiytmfnc-Dzu te syndrome) Essential hypertension LIQUID-BASED PAP SMEAR [...] 10*3/mm3 03/08/2025 6:04 AM EDT [facility] RBC 2.82(L) 3.77 - 5.28 10*6/mm3 03/08/2025 6:04 AM EDT [facility] Hemoglobin 7.2(L) 12.0 - 15.9 g/dL 03/08/2025 6:04 AM EDT [facility] Hematocrit 24.1(L) 34.0 - 46.6 % 03/08/2025 6:04 AM EDT [facility] MCV 85.5 79.0 - 97.0 fL 03/08/2025 6:04 AM EDT [facility] MCH 25.5(L) 26.6 - 33.0 pg 03/08/2025 6:04 AM EDT [facility] MCHC 29.9(L) 31.5 - 35.7 g/dL 03/08/2025 6:04 AM EDT [facility] RDW 15.5(H) 12.3 - 15.4 % 03/08/2025 6:04 AM EDT [facility] RDW-SD 47.4 37.0 - 54.0 fl 03/08/2025 6:04 AM EDT [facility] MPV 11.8 6.0 - 12.0 fL 03/08/2025 6:04 AM EDT [facility] Platelets 213 140 - 450 10*3/mm3 03/08/2025 6:04 AM EDT [facility] Blood Venipuncture / Unknown 03/08/2025 5:27 AM EDT 03/08/2025 5:55 AM EDT us Kelly Patricia GRINDER GEAR LAB BLOOD ORDERABLES Final Result [facility]
[address] [place] [address], * (ABNORMAL) CBC Auto Differential (03/07/2025 5:07 AM EDT) WBC 9.80 3.40 - 10.80 10*3/mm3 03/07/2025 5:34 AM EDT [facility] RBC 2.90(L) 3.77 - 5.28 10*6/mm3 03/07/2025 5:34 AM EDT [facility] Hemoglobin 7.6(L) 12.0 - 15.9 g/dL 03/07/2025 5:34 AM EDT [facility] Hematocrit 24.7(L) 34.0 - 46.6 % 03/07/2025 5:34 AM EDT [facility] MCV 85.2 79.0 - 97.0 fL 03/07/2025 5:34 AM EDT [facility] MCH 26.2(L) 26.6 - 33.0 pg 03/07/2025 5:34 AM EDT [facility] MCHC 30.8(L) 31.5 - 35.7 g/dL 03/07/2025 5:[facility] RDW 15.0 12.3 - 15.4 % 03/07/2025 5:34 AM [facility] RDW-SD 46.5 37.0 - 54.0 fl 03/07/2025 5:34 AM [facility] MPV 11.9 6.0 - 12.0 fL 03/07/2025 5:34 AM EDT [facility] Platelets 210 140 - 450 10*3/mm3 03/07/2025 5:34 AM [facility] Neutrophil % 67.5 42.7 - 76.0 % 03/07/2025 5:34 AM [facility] Lymphocyte % 21.3 19.6 - 45.3 % 03/07/2025 5:34 AM [facility] Monocyte % 5.8 5.0 - 12.0 % 03/07/2025 5:34 AM [facility] Eosinophil % 0.9 0.3 - 6.2 % 03/07/2025 5:34 AM [facility] Basophil % 0.4 0.0 - 1.5 % 03/07/2025 5:34 AM [facility] Immature Grans % 4.1(H) 0.0 - 0.5 % 03/07/2025 5:34 AM [facility] Neutrophils, Absolute 6.61 1.70 - 7.00 10*3/mm3 03/07/2025 5:34 [facility] Lymphocytes, Absolute 2.09 0.70 - 3.10 10*3/mm3 03/07/2025 5:34 [facility] Monocytes, Absolute 0.57 0.10 - 0.90 10*3/mm3 03/07/2025 5:34 [facility] Eosinophils, Absolute 0.09 0.00 - 0.40 10*3/mm3 03/07/2025 5:34 AM EDT [facility] Basophils, Absolute 0.04 0.00 - 0.20 10*3/mm3 03/07/2025 5:34 AM EDT [facility] Immature Grans, Absolute 0.40(H) 0.00 - 0.05 10*3/mm3 03/07/2025 5:34 AM EDT [facility] nRBC 0.3(H) 0.0 - 0.2 /100 WBC 03/07/2025 5:34 AM EDT [facility] Blood Venipuncture / Unknown 03/07/2025 5:07 AM EDT 03/07/2025 5:16 AM EDT Zahira Kirkpatrick MD LAB BLOOD ORDERABLES Final Resu lt [facility]
[address] [place] [address], * Tissue Pathology Exam (03/06/2025 5:50 AM EDT) Case Report Surgical Pathology Report Case: [id number] Authorizing Provider: Zahira Kirkpatrick MD Collected: 03/06/2025 05:50 AM Ordering Location: [facility] Received: 03/06/2025 06:11 AM LABOR DELIVERY Pathologist: Shilpa Rascon MD Specimen: Placenta, Placenta, 37 weeks IUGR, hypertension 03/07/2025 11:25 AM EDT [facility] Clinical Information 37 weeks, IUGR, hypertension 03/07/2025 11:25 AM EDT [facility] Final Diagnosis Placenta, vaginal delivery: Mature placental parenchyma with increased perivillous and subchorionic fibrin deposition Three-vessel umbilical cord 03/07/2025 11:25 AM EDT [facility] at 1125 EDT Gross Description 1. [...] spongy parenchyma with no gross lesions identified. Ratchet Setter sections are submitted as follows: 1A-umbilical cord with false knot and membrane roll 3A-jpdi-cunnawilw disc with subchorionic fibrin 4B-hlst-dpmnleyub disc at cord insertion site. LDP 03/07/2025 11:25 AM EDT [facility] Microscopic Description The slides are reviewed and demonstrate histopathologic features supporting the above rendered diagnosis. 03/07/2025 11:25 AM EDT [facility] Tissue Placental structure / Unknown Collection / Unknown 03/06/2025 5:50 AM EDT 03/06/2025 6:11 AM EDT Zahira Kirkpatrick MD PATHOLOGY/CYTOLOGY ORDERABLES F inal Result [facility]
[address] [place] [address], * [facility] AN LABOR EPIDURAL KIT (03/06/2025 5:49 AM EDT) Narrative Mami Balbuena MD - 03/06/2025 5:49 AM EDT Mami Balbuena MD 03/06/2025 5:49 AM Labor Epidural Patient reassessed immediately prior to procedure Patient location during procedure: OB Preanesthetic Checklist Completed: patient identified, IV checked, risks and benefits discussed, surgical consent, monitors and equipment checked, pre-op evaluation and timeout performed Prep: Pt Position:sitting Sports Equipment Racker:cap, gloves, sterile barrier, mask and gown Prep:chlorhexidine [...] Clean Catch (03/06/2025 1:19 AM EDT) Pathologist [facility] Protein/Creati nine Ratio, Urine 399.3(H) 0.0 - 200.0 mg/G Crea 03/06/2025 9:31 AM EDT [facility] Creatinine, Urine 108.2 mg/dL 03/06/2025 9:31 AM EDT [facility] Total Protein, Urine 43.2 mg/dL 03/06/2025 9:31 AM EDT [facility] Urine Urine specimen obtained by clean catch procedure / Unknown Collection / Unknown 03/06/2025 1:19 AM EDT 03/06/2025 1:19 AM EDT Zahira Kirkpatrick MD URINE ORDERABLES Final Result [facility]
[address] [place] [address], * Treponema pallidum AB w/Reflex RPR (03/06/2025 1:11 AM EDT) Only the most recent of2 resultswithin the time period is included. Treponemal AB Total Non-Reacti ve Non-React rmaya 03/06/2025 1:42 PM EDT [facility] Blood Venipuncture / Unknown 03/06/2025 1:11 AM EDT 03/06/2025 1:11 AM EDT Narrative [facility] - 03/06/2025 1:42 PM EDT Reactive results will reflex RPR testing. us Zahira Kirkpatrick MD LAB BLOOD ORDERABLES Final Resu lt [facility]
[address] [place] [address], * (ABNORMAL) Iron Profile w/o Ferritin (03/06/2025 1:11 AM EDT) Iron 54 37 - 145 mcg/dL 03/06/2025 6:36 AM EDT [facility] Iron Saturation (TSAT) 8(L) 20 - 50 % 03/06/2025 6:36 AM EDT [facility] Transferrin 482(H) 200 - 360 mg/dL 03/06/2025 6:36 AM EDT [facility] TIBC 718(H) 298 - 536 mcg/dL 03/06/2025 6:36 AM EDT [facility] Blood Venipuncture / Unknown 03/06/2025 1:11 AM EDT 03/06/2025 2:53 AM EDT us Zahira Kirkpatrick MD LAB BLOOD ORDERABLES Final Resu lt Performing Organization Address City/[facility]/ZIP Co de Phone Number [facility]
[address] [place] [address], [place] [phone] * (ABNORMAL) Uric Acid (03/06/2025 1:11 AM EDT) Only the most recent of2 resultswithin the time period is included. Uric Acid 6.6(H) 2.4 - 5.7 mg/dL 03/06/2025 3:12 AM EDT [facility] Comment:Falsely depressed re sults may occur on samples drawn from patients receiving N-Acetylcysteine (NAC) or Metamizole. Blood Venipuncture / Unknown 03/06/2025 1:11 AM EDT 03/06/2025 2:53 AM EDT us Zahira Kirkpatrick MD LAB BLOOD ORDERABLES Final Resu lt Performing Organization Address City/[facility]/ZIP Co de Phone Number [facility]
[address] [place] [address], [place] [phone] * Lactate Dehydrogenase (03/06/2025 1:11 AM EDT) Only the most recent of2 resultswithin the time period is included. LDH 187 135 - 214 U/L 03/06/2025 3:12 AM EDT [facility] Blood Venipuncture / Unknown 03/06/2025 1:11 AM EDT 03/06/2025 2:53 AM EDT us Zahira Kirkpatrick MD LAB BLOOD ORDERABLES Final Resu lt Performing Organization Address [facility] Co de Phone Number [facility]
[address] [place] [address], [place] [phone] * (ABNORMAL) Ferritin (03/06/2025 1:11 AM EDT) Ferritin 7.88(L) 13.00 - 150.00 ng/mL 03/06/2025 6:36 AM EDT [facility] Blood Venipuncture / Unknown 03/06/2025 1:11 AM EDT 03/06/2025 2:53 AM EDT Narrative [facility] - 03/06/2025 6:36 AM EDT Results may be falsely decreased if patient taking Biotin. us Zahira Kirkpatrick MD LAB BLOOD ORDERABLES Final Resu lt Performing Organization Address City/[facility]/ZIP Co de Phone Number [facility]
[address] [place] [address], [place] [phone] * (ABNORMAL) Comprehensive Metabolic Panel (03/06/2025 1:11 AM EDT) Only the most recent of3 resultswithin the time period is included. Glucose 84 65 - 99 mg/dL 03/06/2025 3:12 AM EDT [facility] BUN 8.9 6.0 - 20.0 mg/dL 03/06/2025 3:12 AM EDT [facility] Creatinine 0.87 0.57 - 1.00 mg/dL 03/06/2025 3:12 AM EDT [facility] Sodium 137 136 - 145 mmol/L 03/06/2025 3:12 AM EDT [facility] Potassium 4.0 3.5 - 5.2 mmol/L 03/06/2025 3:12 AM EDT [facility] Chloride 106 98 - 107 mmol/L 03/06/2025 3:12 AM EDT [facility] CO2 18.4(L) 22.0 - 29.0 mmol/L 03/06/2025 3:12 AM EDT [facility] Calcium 8.7 8.6 - 10.5 mg/dL 03/06/2025 3:12 AM EDT [facility] Total Protein 6.3 6.0 - 8.5 g/dL 03/06/2025 3:12 AM EDT [facility] Albumin 3.4(L) 3.5 - 5.2 g/dL 03/06/2025 3:12 AM EDT [facility] ALT (SGPT) 22 1 - 33 U/L 03/06/2025 3:12 AM EDT [facility] AST (SGOT) 16 1 - 32 U/L 03/06/2025 3:12 AM EDT [facility] Alkaline Phosphatase 113 39 - 117 U/L 03/06/2025 3:12 AM EDT [facility] Total Bilirubin 0.7 0.0 - 1.2 mg/dL 03/06/2025 3:12 AM EDT [facility] Globulin 2.9 gm/dL 03/06/2025 3:12 AM EDT [facility] Comment:Calculated Result A/G Ratio 1.2 g/dL 03/06/2025 3:12 AM EDT [facility] BUN/Creatinine Ratio 10.2 7.0 - 25.0 03/06/2025 3:12 AM EDT [facility] Anion Gap 12.6 5.0 - 15.0 mmol/L 03/06/2025 3:12 AM EDT [facility] eGFR 95.6 >60.0 mL/min/1.7 3 03/06/2025 3:12 AM EDT [facility] Blood Venipuncture / Unknown 03/06/2025 1:11 [...] BLOOD ORDERABLES Final Resu lt [facility]
[address] [place] [address], * Type & Screen (03/06/2025 1:03 AM EDT) Only the most recent of3 resultswithin the time period is included. ABO Type A 03/06/2025 1:37 AM EDT [facility] RH type Positive 03/06/2025 1:37 AM EDT [facility] Antibody Screen Negative 03/06/2025 1:37 AM EDT [facility] T&S Expiration Date 03/09/2025 11:59:59 PM 03/06/2025 1:37 AM EDT [facility] Blood Venipuncture / Unknown 03/06/2025 1:03 AM EDT 03/06/2025 1:03 AM EDT Zahira Kirkpatrick MD BLOOD BANK TEST ORDERABLES Edit ed Result - Final Performing Organization Address City/[facility]/ZIP Co de Phone Number [facility]
[address] [place] [address], [place] [phone] * POC Urinalysis Dipstick (03/02/2025 9:58 AM EDT) Only the most recent of6 resultswithin the time period is included. Glucose, UA Negative Negative mg/dL [facility] Protein, POC Negative Negative mg/dL [facility] Urine 03/02/2025 9:58 AM EDT Kartik Maurice APRN POINT OF CARE TEST O RDERABLES Final Result Performing Organization Address [facility] Co de Phone Number [facility]
[address] [id number], [place] [phone] * Procedure Scanned (03/02/2025) Kartik Maurice APRN PROCEDURE/MINOR SURG ICAL ORDERABLES Final Result * US Biophysical Profile;With Non-Stress Testing (02/27/2025 11:10 AM EDT) Only the most recent of2 resultswithin the time period is included. Anatomical Region Laterality Modality Body Ultrasound 02/27/2025 11:5 2 AM EDT Narrative 02/27/2025 11:12 AM EDT PAT NAME: LISA RILEY MED REC#: [id number] DA: 2000 PAT GEND: F PAT TYPE: O EXAM JAYSON: [id number] REF PHYS ZAHIRA KIRKPATRICK Indication ======== Non [...] of testing for the condition being monitored. Visual Merchandising Specialist: Annamaria Eli RT R, [place] Physician: Zahira Kirkpatrick MD Electronically signed by: Zahira Kirkpatrick MD at: 11:12 Procedure Note Zahira Kirkpatrick MD - 02/27/2025 PAT NAME: LISA RILEY MED REC#: [id number] DA: 2000 PAT GEND: F PAT TYPE: O EXAM JAYSON: [id number] REF PHYS ZAHIRA KIRKPATRICK Indication ======== Non reactive NST; Morbid obesity BMI 45 Comparison Studies The findings of this study are compared to the prior ultrasound studydated 02/23/25 Method ======= Vol[place]on E6, Transabdominal ultrasound examination. View: Sufficient ========= Hernandez . Number of fetuses: 1 Dating ====== Cycle:irregular cycle Method of dating:based on stated CONG GA by prior [id number] w + 0 d CONG by prior [...] schedule of testing for the condition beingmonitored. Visual Merchandising Specialist: Annamaria Eli RT [place], [facility] Physician: Zahira Kirkpatrick MD Electronically signed by: Zahira Kirkpatrick MD at: 11:12 us Zahira Kirkpatrick MD [facility] ORDERABLES Final Result * POC Protein, Urine, Qualitative, Dipstick (02/27/2025 10:27 AM EDT) Only the most recent of4 resultswithin the time period is included. Protein, POC Negative Negative mg/dL [facility] Lot Number 0 [facility] Expiration Date 0 [facility] Urine 02/27/2025 10:2 7 AM EDT Zahira Kirkpatrick MD POINT OF CARE TEST ORDERABLES F inal Result [facility]
[address] [place] [address], * POC Glucose, Urine, Qualitative, Dipstick (02/27/2025 10:27 AM EDT) Only the most recent of4 resultswithin the time period is included. Glucose, UA Negative Negative mg/dL [facility] Urine 02/27/2025 10:2 7 AM EDT us Zahira Kirkpatrick MD POINT OF CARE TEST ORDERABLES F inal Result [facility]
[address] [place] [address], * Procedure Scanned (02/27/2025) us Zahira Kirkpatrick MD PROCEDURE/MINOR SURGICAL ORDERA BLES Final Result * [facility] (02/23/2025 2:44 PM EDT) Only the most recent of3 resultswithin the time period is included. Anatomical Region Laterality Modality Ultrasound 02/23/2025 2:19 PM EDT Narrative 02/23/2025 2:48 PM EDT PAT NAME: LISA RILEY MED REC#: [id number] DA: 2000 PAT GEND: F PAT TYPE: O EXAM JAYSON: [id number] REF ZAHIRA HOLCOMB Comparison Studies The findings [...] EFW (oz) 11 oz EFW by: Hadlock ([id number]) Extended Cav. septi pel. tr 5.9 mm [...] Normal Heart / Thorax 3-vessel view: Normal 5-ogesqy-suxseqb view: normal Stomach: Appears normal Kidneys: Appears [...] Recommend 37 week delivery. Coding ======= Description: 15036-56 Follow Up Ultrasound Description: 79994-65 BPP without NST Description: 18375-08 Doppler Umbilical Artery Visual Merchandising Specialist: Destini Hall RDMS Physician: Medhat De Anda MD, FACOG Electronically signed by: Medhat De Anda MD, FACOG at: 14:48 Procedure Note Medhat De Anda MD - 02/23/2025 PAT NAME: [facility] REC#: [id number] DA: 2000 PAT GEND: F PAT TYPE: O EXAM JAYSON: [id number] REF PHYS ZAHIRA KIRKPATRICK Comparison Studies The findings of this study are compared to the prior ultrasound studydated 01/25/25. Patient Status Outpatient Indication ======== contractions. CHTN. Chronic proteinuria. Maternal Ghosh ParkinsonWhite. Hx PTD 35 wk - preeclampsia. Morbid obesity BMI 47 Maternal Assessment Nmsupr634 cm Quoizp477 kg Weight (lb)273 lb BMI47.19 kg/m Method ======= Transabdominal ultrasound examination. View: Limited by patient bodyhabitus ========= Hernandez . Number of fetuses: 1 Dating ====== Cycle:irregular cycle GA by prior [id number] w + 3 d CONG by prior [...] GA35 w + 3 d Assigned CONG:03/27/2025 [id number] d Biometry Standard BPD85.5 mm 34w 3d 27% Hadlock IPV690.7 mm 36w 6d 79% Van HC315.5 mm 35w 3d 18% Hadlock Cerebellum tr45.4 mm 34w 6d 27% Hill AC313.1 mm 35w 2d 53% Hadlock Femur67.2 mm 34w 4d 22% Hadlock Xmpgzrk61.2 mm 34w 2d 40% Van HC / AC1.01 EFW2,567 g 34w 6d 37% Hadlock EFW (lb)5 lb EFW (oz)11 oz EFW by:Hadlock ([id number]) Extended Cav. septi pel. tr5.9 mm CM6.7 mm 26% Nicolaides Head / Face / Neck Cephalic index0.77 14% Nicolaides Extremities / Bony Struc FL / BPD0.79 FL / HC0.21 FL / AC0.21 Other Structures WNL419 bpm General Evaluation Cardiac activity present. FHR 177 bpm. movements present. Presentation cephalic. Placenta Placental site: posterior, fundal. Amniotic fluid Amount of AF: normal. MVP 4.8 cm. ELIZABETH 13.6 cm. Q1 3.2 cm,Q2 4.8 cm, Q3 3.4 cm, Q4 2.3 cm. Anatomy Cranium:Normal Cavum septi pellucidi:Normal Cerebellum:Normal Cisterna magna:Normal 4-chamber view:Appears normal RVOT view:Normal LVOT view:Normal Heart / Thorax 3-vessel view:Normal 1-ahfqpl-dlfpsth view:normal Stomach:Appears normal Kidneys:Appears normal Bladder:Appears normal [...] indicated. Recommend 37 week delivery. Coding ======= Description:86748-60 Follow Up Ultrasound Description:46072-62 BPP without NST Description:85291-63 Doppler Umbilical Artery Visual Merchandising Specialist: Destini Hall RDMS Physician: Medhat De Anda MD, FACOG Electronically signed by: Medhat De Anda MD, FACOG at: 14:48 us Zahira Kirkpatrick MD IMG US ORDERABLES Final Result * Procedure Scanned (02/23/2025) Kartik Darnell Kaylene GRINDER GEAR PROCEDURE/MINOR SURG ICAL ORDERABLES Final Result * Procedure Scanned (02/20/2025) us Zahira Kirkpatrick MD PROCEDURE/MINOR SURGICAL ORDERA BLES Final Result * Procedure Scanned (02/16/2025) us Kartik Patrick Kaylene GRINDER GEAR PROCEDURE/MINOR SURG ICAL ORDERABLES Final Result * Group B Streptococcus Culture - Swab, Vaginal/Rectum (02/13/2025 6:55 PM EDT) Pathologist [facility] Group B Strep Culture No Group B Streptococcus isolated SEAN 02/16/2025 10:43 AM EDT [facility] Swab Rectum and vagina, CS / Unknown Collection / Unknown 02/13/2025 6:55 PM EDT 02/13/2025 6:55 PM EDT us Zahira Kikrpatrick MD MICROBIOLOGY - GENERAL ORDERABL ES Final Result [facility]
[address] [place] [address], * (ABNORMAL) Protein, Urine, 24 Hour - Urine, Clean Catch (02/13/2025 9:47 AM EDT) Pathologist [facility] Total Protein, Urine 16.3 mg/dL [facility] Protein, 24H Urine 211.9(H) 0.0 - 150.0 mg/24hours [facility] 24 Hour Urine Urine specimen obtained by clean catch procedure / Unknown 02/13/2025 9:47 AM EDT 02/13/2025 Narrative [facility] - 02/14/2025 3:35 AM EDT Performed at: 01 - [facility] [address] [place], [place] [id number] Transmission Design Engineer: Fabian Cabrera MD, Phone: [phone] us Arturo Feliz MD URINE ORDERABLES Final Res ult Performing Organization Address [facility]/ZIP Co de Phone Number [facility] [address] [place] [address], [place] [phone] [facility] [address] [place] [address], * Procedure Scanned (02/13/2025) Zahira Kirkpatrick MD PROCEDURE/MINOR SURGICAL ORDERA BLES Final Result * Chlamydia trachomatis, Neisseria gonorrhoeae, PCR w/ confirmation - Swab, Vagina (02/13/2025 12:00 AM EDT) Chlamydia trachomatis, EARNESTINE Negative Negative [facility] Neisseria gonorrhoeae, EARNESTINE Negative Negative [facility] Swab Vaginal structure / Unknown 02/13/2025 02/13/2025 Comment:Swab Release to denice e Narrative [facility] (AMBULATORY) - 02/14/2025 8:09 PM EDT Performed at: [address] [place] [id number] Transmission Design Engineer: Alice Soriano MD, Phone: [phone] Zahira Kirkpatrick MD MICROBIOLOGY - GENERAL ORDERABL ES Final Result Performing Organization Address [facility] de Phone Number [facility] (AMBULATORY) [address] [place] [address], [place] [phone] [facility] [address] [place] [address], [place] [phone] * (ABNORMAL) AlP+ALT+AST+Creat+LD+TBili+.. (02/09/2025 12:39 PM EDT) [...] Blood 02/09/2025 12:3 9 PM EDT 02/09/2025 [facility] (AMBULATORY) - 02/10/2025 3:35 AM EDT Performed at: [facility] [address] [place] [id number] Transmission Design Engineer: Edgar Mccartney PhD, Phone: [phone] Shania Schwab APRN LAB BLOOD ORDERABLES Final R esult Performing Organization Address City/[facility]/ZIP Co de Phone Number [facility] [address] [place] [address], [place] [phone] [facility] [address] [place] [address], [place] [phone] * Bile Acids, Total (02/09/2025 12:39 PM EDT) [facility] Bile Acids Total 4.2 0.0 - 10.0 umol/L [facility] Blood 02/09/2025 12:3 9 PM EDT 02/09/2025 [facility] (AMBULATORY) - 02/11/2025 4:36 PM EDT Performed at: [address] [id number] Transmission Design Engineer: Alice Soriano MD, Phone: [phone] Shania Schwab APRN LAB BLOOD ORDERABLES Final R esult Performing Organization Address City/[facility]/ZIP Co de Phone Number [facility] [address] [place] [address], [place] [phone] [facility] [address] [place] [address], [place] [phone] * (ABNORMAL) Bacterial Vaginosis, EARNESTINE - Swab, Cervix (02/09/2025 12:00 AM EDT) [facility] Atopobium Vaginae Low - 0 Score [facility] [...] / Unknown 02/09/2025 02/09/2025 Comment:Swab Release to [facility] Narrative [facility] (AMBULATORY) - 02/12/2025 5:08 PM EDT Test(s) 655801- Atopobium vaginae; 821164- BVAB 2; 071167- Megasphaera 1 was developed and its performance characteristics determined by [facility]. It has not been cleared or approved by the Food and Drug Administration. Performed at: 01 - [address] [id number] Transmission Design Engineer: Ina Couch MD, Phone: [phone] Shania Schwab APRN MICROBIOLOGY - GENERAL ORDER CATARINO Final Result [facility] (AMBULATORY) [address] [place] [address], [facility] [address] [place] [address], [place] [phone] * Procedure Scanned (02/09/2025) [facility] Onbase PROCEDURE/MINOR SURGICAL ORDE RABLES Final Result [...] 02/09/2025 Comment:Urine Release to pat i Narrative [facility] - 02/11/2025 3:35 AM EDT Performed at: 01 - [facility] [address] [place] [id number] Transmission Design Engineer: Edgar Mccartney PhD, Phone: [phone] Shania Schwab GRINDER GEAR MICROBIOLOGY - GENERAL ORDER CATARINO Final Result [facility] [address] [place] [address], [place] [phone] [facility] [address] [place] [address], [place] [phone] * Procedure Scanned (02/06/2025) Zahira Kirkpatrick MD PROCEDURE/MINOR SURGICAL ORDERA BLES Final Result * Procedure Scanned (02/03/2025) Rosie Domingo APRN PROCEDURE/MINOR SURGICAL ORDE RABLES Final Result * POC Amnisure (01/25/2025 10:43 AM EDT) Amnisure Negative Negative [facility] Amniotic Fluid 01/25/2025 10 :43 AM EDT Erlinda Bingham MD POINT OF CARE TEST OR DERABLES Final Result [facility]
[address] [place] [address], * (ABNORMAL) Urinalysis, Microscopic Only - Urine, Clean Catch (01/23/2025 10:00 PM EDT) Pathologist [facility] RBC, UA 0-2 None Seen, 0-2 /HPF 01/23/2025 10:10 PM EDT [facility] WBC, UA 6-10(A) None Seen, 0-2 /HPF 01/23/2025 10:10 PM EDT [facility] Bacteria, UA None Seen None Seen, Trace /HPF 01/23/2025 10:10 PM EDT [facility] Squamous Epithelial Cells, UA 3-6(A) None Seen, 0-2 /HPF 01/23/2025 10:10 PM EDT [facility] Hyaline Casts, UA 0-6 0 - 6 /LPF 01/23/2025 10:10 PM EDT [facility] Methodology Automated Microscopy 01/23/2025 10:10 PM EDT [facility] Urine Urine specimen obtained by clean catch procedure / Unknown Collection / Unknown 01/23/2025 10:00 PM EDT 01/23/2025 10:00 PM EDT Jose Wilcox MD URINE ORDERABLES Final Result [facility]
[address] [place] [address], * (ABNORMAL) Urinalysis With Culture If Indicated - Urine, Clean Catch (01/23/2025 10:00 PM EDT) Color, UA Yellow Yellow, Straw 01/23/2025 10:10 PM EDT [facility] Appearance, UA Clear Clear 01/23/2025 10:10 PM EDT [facility] pH, UA 6.5 5.0 - 8.0 01/23/2025 10:10 PM EDT [facility] Specific [place], UA 1.015 1.001 - 1.030 01/23/2025 10:10 PM EDT [facility] Glucose, UA Negative Negative 01/23/2025 10:10 PM EDT [facility] Ketones, UA Negative Negative 01/23/2025 10:10 PM EDT [facility] Bilirubin, UA Negative Negative 01/23/2025 10:10 PM EDT [facility] Blood, UA Negative Negative 01/23/2025 10:10 PM EDT [facility] Protein, UA 30 mg/dL (1+)(A) Negative 01/23/2025 10:10 PM EDT [facility] Leuk Esterase, UA Trace(A) Negative 01/23/2025 10:10 PM EDT [facility] Nitrite, UA Negative Negative 01/23/2025 10:10 PM EDT [facility] Urobilinogen, UA 0.2 E.U./dL 0.2 - 1.0 E.U./dL 01/23/2025 10:10 PM EDT [facility] Urine Urine specimen obtained by clean catch procedure / Unknown Collection / Unknown 01/23/2025 10:00 PM EDT 01/23/2025 10:00 PM EDT Narrative [facility] - 01/23/2025 10:10 PM EDT In absence of clinical symptoms, the presence of pyuria, bacteria, and/or nitrites on the urinalysis result does not correlate with infection. us Jose Wilcox MD URINE ORDERABLES Final Result [facility]
[address] [place] [address], * IMAGING SCANNED (01/23/2025) Anatomical Region Laterality Modality Radiographic Grace ging [facility] IMG DIAGNOSTIC IMAGING ORDERA BLES Final Result * Gestational Screen 1 Hr ([facility]) (01/11/2025 10:55 AM EDT) Gestational Diabetes Screen 132 65 - 139 mg/dL [facility] Blood 01/11/2025 10:5 5 AM EDT 01/11/2025 Narrative [facility] - 01/12/2025 3:35 AM EDT Performed at: [address] [place] [address] [place], [place] [id number] Transmission Design Engineer: Fabian Cabrera MD, Phone: [phone] Arturo Feliz MD LAB BLOOD ORDERABLES Final Result Performing Organization Address City/[facility]/ZIP Co de Phone Number [facility]) [address] [place] [address], [place] [phone] [facility] [address] [place] [address], * RPR Qualitative with Reflex to Quant (01/11/2025 10:55 AM EDT) RPR Non Reactive Non Reactive [facility] Blood 01/11/2025 10:5 5 AM EDT 01/11/2025 Narrative [facility] ([facility]) - 01/12/2025 5:36 AM EDT Performed at: [facility] [address] [place] [id number] Transmission Design Engineer: Edgar Mccartney PhD, Phone: [phone] Arturo Feliz MD LAB BLOOD ORDERABLES Final Result Performing Organization Address City/[facility]/ZIP Co de Phone Number [facility]) [address] [place] [address], [facility] [address] [place] [address], * Antibody Screen (01/11/2025 10:55 AM EDT) Antibody Screen Negative Negative [facility] Blood 01/11/2025 10:5 5 AM EDT 01/11/2025 Narrative [facility]) - 01/12/2025 8:12 AM EDT Performed at: [facility] [address] [place], [place] [id number] Transmission Design Engineer: Edgar Mccartney PhD, Phone: [phone] Arturo Feliz MD BLOOD BANK TEST ORDERABLES Final Result [facility]) [address] [place] [address], [place] [phone] [facility] [address] [place] [address], [place] [phone] * LIQUID-BASED PAP SMEAR WITH HPV GENOTYPING IF ASCUS (KARAN,COR,MAD) (08/17/2024 3:35 PM EST) Pathologist [facility] Reference Lab Report [facility] [address] [place] [address] or [phone] Luis Boyle M.D., Barrel Dedenting Machine Operator PATIENT NAME LABORATORY NO. Zbigniew OSVALDO, [place] DARYL NOVA. [id number] AGE SEX SSN CLIENT REF # [id number] [address] 2000 F [id number] [address] REQUESTING M.Lexi. [place] [address] ARTURO FELIZ DATE COLLECTED DATE RECEIVED DATE [...] HISTORY: Essential hypertension , unspecified gestational age CABLE FERRYBOAT OPERATOR: LUIS ANTONIO HOOKER (ASCP) CPT CODES: 19607 08/19/2024 10:47 AM EST [facility] ThinPrep Vial Cervix uteri structure / Unknown Collection / Unknown 08/17/2024 3:35 PM EST 08/17/2024 3:36 PM EST us Arturo Feliz MD PATHOLOGY/CYTOLOGY ORDERAB LES Final Result [facility]
[address] [place] [address], * (ABNORMAL) Obstetric Panel (08/17/2024 3:31 PM [...] 10:35 AM EST Performed at: - [facility] [address] [place], [place] [id number] Transmission Design Engineer: Edgar Mccartney PhD, Phone: [phone] us Arturo Feliz MD LAB BLOOD ORDERABLES Final Result [facility]) [address] [place] [address], [facility] [address] [place] [address], from Last 3 Months or Most Recently Relevant to Health Maintenance Insurance [facility] BENEFIT CIGNA UMR Advance Directives * [...] Of Support Discussed With: Patient Care Teams Medical Technologist Chief Relationship Specialty Start Date End Date Jefe Schwartz MD [facility] [address] [address] PCP - General Adolescent Medicine 12/14/23
[2025-04-12 09:15] VITALS: BP 112/61; PULSE 72; RESP 16; O2SAT 100
[2025-04-12] MEDS: IRON SUCROSE COMPLEX 200 MG in 0.9 % SODIUM CHLORIDE 100 ML 220 MG IV (09:15)
--- OUTSIDE RECORDS SUMMARY | 2025-04-12 09:17 | XMS_ITS | Encounter Summary ---
Author Organization [facility] Address [address] [place] [address] Care Team Providers Care Director Sales Support Name Role Phone Jefe Schwartz MD Primary Care Provider [phone] Encounter Details Date Type Department Care Team (Late st Contact Info) Description 03/17/2025 Maternal Screening [facility] [address] [place] [phone] Ivanna Downing, RN Social History Tobacco Use Types Packs/Day Years Used Date Smoking Tobacco: Former Cigarettes Q uit: 01/2024 Passive Smoke Exposure: Past Smokeless Tobacco: Never Comments:Vape. Alcohol Use Standard Drinks/Week Comments Never 0 (1 standard drink = 0.6 oz pur e alcohol) [facility] Utilities Answer Date Recorded In the past 12 months has [place] [employer] electric, gas, oil, or water company threatened [...] and heating? Not hard at all 03/06/2025 [facility] of Occupat ional Health - Occupational Stress [...] things needed for daily living? No 03/06/2025 [place] Depression Scale Answer Date Recorded [place] Depression Scale Total 2 03/17/2025 The thought [...] GED or equivalent No 03/06/2025 Preferred Language Mauritian 03/06/2025 PHQ-2 Answer Date Recorded Patient Health [...] Flowsheet Row Responses Facility patient discharged from? [facility] Attempt successful? Yes Call start time 926 [...] harming myself has occurred to me. 0 [place] Depression Scale Total 2 Did any of [...] Description 04/17/2025 1:40 PM EDT Visit [facility] [address] [facility] [address] [place] [address] Aydin Crowe MD [address] [facility] [address] [place] [address] documented as of this encounter Visit Diagnoses Not on filedocumented in this encounter Care Teams Director Sales Support Relationship Specialty Start Date End Date Jefe Schwartz MD [address] [facility] [address] [facility] [address] [place] [address] PCP - General Adolescent Medicine 12/14/23 documented as of this encounter
--- OUTSIDE RECORDS SUMMARY | 2025-04-12 09:17 | XMS_ITS | Encounter Summary ---
Author Organization [facility] Address [address] [place] [address] Care Team Providers Care Administrative Officer Name Role Phone Jefe Schwartz MD Primary Care Provider [phone] Encounter Details Date Type Department Care Team (Late st Contact Info) Description 03/09/2025 Maternal Screening [facility] N[facility]SE CALL [facility] [address] [place] [phone] Aracelis Mueller, RN Social History Tobacco Use Types Packs/Day Years Used Date Smoking Tobacco: Former Cigarettes Q uit: 01/2024 Passive Smoke Exposure: Past Smokeless Tobacco: Never Comments:Vape. Alcohol Use Standard Drinks/Week Comments Never 0 (1 standard drink = 0.6 oz pur e alcohol) [facility] Utilities Answer Date Recorded In the past 12 months has [employer] electric, gas, oil, or water company threatened [...] and heating? Not hard at all 03/06/2025 [facility] [place] of Occupat ional Health - Occupational Stress [...] things needed for daily living? No 03/06/2025 [place] Depression Scale Answer Date Recorded [place] Depression Scale Total 8 03/06/2025 The thought [...] GED or equivalent No 03/06/2025 Preferred Language Sammarinese 03/06/2025 PHQ-2 Answer Date Recorded Patient Health [...] Description 04/17/2025 1:40 PM EDT Visit [facility]YN [address] [facility] [address] [place] [address] Aydin Crowe MD 1700 [facility] [address] [place] [address] documented as of this encounter Visit Diagnoses Not on filedocumented in this encounter Care Teams Administrative Officer Relationship Specialty Start Date End Date Jefe Schwartz MD [address] [facility] [address] [place] [address] PCP - General Adolescent Medicine 12/14/23 documented as of this encounter
--- OUTSIDE RECORDS SUMMARY | 2025-04-12 09:18 | XMS_ITS | Encounter Summary ---
Author Organization [facility] Address [address] [place] [address] Care Team Providers Care Furniture Sander Name Role Phone Jefe Schwartz MD Primary Care Provider [phone] Encounter Details Date Type Department Care Team (Latest Contact Info) Description 03/06/2025 Travel Social History Tobacco Use Types Packs/Day Years Used Date Smoking Tobacco: Former Cigarettes Q uit: 01/2024 Passive Smoke Exposure: Past Smokeless Tobacco: Never Comments:Vape. Alcohol Use Standard Drinks/Week Comments Never 0 (1 standard drink = 0.6 oz pur e alcohol) [facility] Utilities Answer Date Recorded In the past 12 months has [employer] electric, gas, oil, or water company threatened [...] and heating? Not hard at all 03/06/2025 [facility] of Occupat ional Health - Occupational Stress [...] things needed for daily living? No 03/06/2025 [place] Depression Scale Answer Date Recorded [place] Depression Scale Total 8 03/06/2025 The thought [...] GED or equivalent No 03/06/2025 Preferred Language Gibraltarian 03/06/2025 PHQ-2 Answer Date Recorded Patient Health [...] 03/06/2025 12:42 AM Chelsy Chan RN * Jean Suicide Severity Rating Scale (Screener/Recent Self-Report) Question [...] Visit [facility] OBGYN [address] [facility] [address] [place] [address] Aydin Crowe MD 1700 [facility] [address] [place] [address] documented as of this encounter Visit Diagnoses Not on filedocumented in this encounter Care Teams Furniture Sander Relationship Specialty Start Date End Date Jefe Schwartz MD 12[address] [facility] [address] [place] [address] PCP - General Adolescent Medicine 12/14/23 documented as of this encounter
--- OUTSIDE RECORDS SUMMARY | 2025-04-12 09:18 | XMS_ITS | Encounter Summary ---
Author Organization Healthcare Address [address] [place] [address] Care Team Providers Care Lawn Service Manager Name Role Phone System, Provider Not In MD Primary Care Provider Unavailable Reason for Referral * Consultation (Routine) - Closed Specialty Diagnoses / Procedures Referred By Jeanne roberts Referred To Contact Nephrology Diagnoses Proteinuria complicating , unspecified trimester Izaiah Mcdaniels MD [address] [facility] [address] [place] [address] Phone: tel: fax: [facility] Nephrology, Bone & Mineral Metabolism [address], [address] [place] [address] Phone: tel: fax: Referral ID Status Reason Start Date Expiration Date V isits Requested Visits Authorized [id number] Closed Specialty Services Required 09/27/2024 03/29/2026 1 1 Encounter Details Date Type Department Care Team (Late st Contact Info) Description 09/27/2024 Community Orders Community Practice [address] [place] [address] Izaiah Mcdaniels MD [address] [place] [address] Proteinuria complicating , unspecified trimester (Primary Dx) [...] Description 06/30/2025 1:20 PM EST Office Visit [facility] [address] [place] [phone] Duke White MD [address] [place] [address] Scheduled Referrals Name Type Priority Associated Diagnoses Orde r Schedule Ambulatory referral to Nephrology Outpatient Referral Routine Proteinuria complicating , unspecified trimester Expected: 09/27/2024 (Approximate), Expires: 03/27/2026 documented as of this encounter Visit Diagnoses Diagnosis Proteinuria complicating , unspecified trimester- Primary documented in this encounter Care Teams Lawn Service Manager Relationship Specialty Start Date End Date System, Provider Not In, [place] [address] PCP - General Family Medicine 09/29/24 documented as of this encounter
[2025-04-12 09:45] VITALS: BP 109/57; PULSE 68; RESP 17
== END 2025-04-12 09:57 | disposition home or self-care (01) ==
LOC: INF 08:57
PROVIDERS: PCP Nurse Practitioner Family; Visit Provider Internal Medicine Medical Oncology
DX: D50.9 Iron deficiency anemia, unspecified (principal)
CPT/HCPCS: 96365; J1756

== ENCOUNTER 2025-04-17 08:46 | Outpatient (CLI) | payer OTHER, SELFPAY ==
--- OUTSIDE RECORDS SUMMARY | 2025-02-16 14:15 | XMS_ITS | Encounter Summary ---
Author Organization [facility] Address [address] [place] [address] Care Team Providers Care Engineering Illustrator Name Role Phone Jefe Schwartz MD Primary Care Provider [phone] Reason for Referral * OBGYN (Routine) - Authorized Specialty Diagnoses / Procedures Referred By Contact Referred To Contact Obstetrics and Gynecology Diagnoses care, third trimester 34 weeks gestation of Chronic hypertension affecting Procedures Nonstress Test Kartik Maurice APRN [address] [place] [address] Phone: tel: fax: [facility] OBGYN [address] [address] Phone: tel: fax: Referral ID Status Reason Start Date Expiration Date V isits Requested Visits Authorized [id number] Authorized 02/16/2025 05/18/2026 1 1 Reason for Visit * Reason Comments Non-stress Test Routine Visit Encounter Details Date Type Department Care Team (Late st Contact Info) Description 02/16/2025 2:15 PM EDT Routine [facility] OBGYN [address] [phone] Kartik Maurice APRN [address] [place] [id number] [place]: 34w3d Social History Tobacco Use Types Packs/Day Years Used Date Smoking Tobacco: Former Cigarettes Q uit: 01/2024 Smokeless Tobacco: Never Comments:Vape. Alcohol Use Standard Drinks/Week Comments Never 0 (1 standard drink = 0.6 oz pur e alcohol) [facility] Utilities Answer Date Recorded In the past 12 months has th e [employer], gas, oil, or water [employer] threatened to shut off services in your [...] and heating? Not hard at all 01/23/2025 [facility] [place] of Occupat ional Health - Occupational Stress [...] things needed for daily living? No 01/23/2025 [place] Depression Scale Answer Date Recorded Retired [place] Depression Score 11 02/23/2024 Retired EPD Scale: [...] GED or equivalent No 01/23/2025 Preferred Language Yakut 01/23/2025 PHQ-2 Answer Date Recorded Patient Health [...] Reading Time Taken Comments Blood Pressure 118/70 02/16/2025 2:31 PM EDT Pulse - - Temperature - - Respiratory Rate - - Oxygen Saturation - - Inhaled Oxygen Concentration - - Weight 122 kg (269 lb 12.8 oz) 02/16/2025 2:31 P M EDT Height - - Body Mass Index 44.9 01/23/2025 10:15 PM EDT documented in this encounter Progress Notes * Kartik Maurice APRN - 02/16/2025 2:15 PM EDT Images from the original note were not included. OB FOLLOW UP CC- Here for care of Lisa Trevino is a 24 y.o. 34w3d patient being seen today for her obstetrical follow up visit. Patient reports decreased movement since last visit, increased pelvic/vaginalpressure, nausea (denies emeses), increased difficulty to urinate, increased Ashish Guillaume (only pain occasionally around umbilicus), trace BLE edema, daily heartburn/reflux (Tums helps little), headaches with increased B/Ps, and occasional sharp RUQ pains with increased B/Ps. Home B/Ps running 130-140s/80-90s. Her care is complicated by (and status): see below. Patient Active Problem List Diagnosis WPW (Wqgnv-Cuiidiebj-Lhcps syndrome) SVT (supraventricular tachycardia) Herpes simplex type [...] Yes, 20+ minutes non-stress test: NST: Reactive 15x15 indication: cHTN ROS - Patient Denies: Loss of Fluid, Vaginal Spotting, Vision Changes, Vomiting , and skin itching Movement: decreased Other than what is documented in the HPI, all other systems reviewed and are negative. The additional following portions of the patient's history were reviewed and updated as appropriate: allergies, current medications, past family history, past medical history, past social history, past surgical history, and problem list. I have reviewed and agree with the HPI, ROS, and historical information as entered above. Kartik Patrick Maurice, SENIOR NET SOFTWARE ENGINEER BP 118/70 Wt 122 kg (269 lb 12.8 oz) LMP 05/24/2024 BMI 44.90 kg/m?? EXAM: Vitals BP: 118/70 Weight: 122 kg (269 lb 12.8 oz) Heart Rate: NST+ Dilation/Effacement/Station Dilation: 3 Effacement (%): 60 Urine Glucose Read-only: Negative Urine Protein Read-only: Negative Assessment and Plan Problem List Items Addressed This Visit WPW (Vgjkj-Lyyvywrbj-Vpvqc syndrome) Overview Dr. Fernando in [place] [facility] & 2 week holter monitor in August 2023 wnl per patient. [facility] appt 11/04; ultrasound within normal limits and normal growth. EFW 57%. No follow-up ultrasound scheduled. Relevant Medications labetalol (NORMODYNE) 100 MG tablet Herpes simplex type 2 (HSV-2) infection affecting , antepartum Overview Pending culture results from Dr. Cordero in [facility]. 10/11/2023 HSV 2 IgG positive; consistent with recurrent HSV2. Rx valtrex For suppression 500 mg daily. Relevant Medications valACYclovir (VALTREX) 500 MG tablet Obesity in , antepartum Overview BMI 44 Anomaly scan at [facility]. History of pre-eclampsia in prior , currently Overview On ASA 81 mg after 10 weeks gestation. Chronic hypertension affecting Overview 12/12/2023; H/o IOL at 35 5/7wk chronic hypertension with superimposed preeclampsia ( 5-4-24) 07/25/2024 patient was noted to have high [...] (NORMODYNE) 100 MG tablet Other Relevant Orders Nonstress Test Overview 23 yo IOL at 35 5/7wk superim preeclampsia ( 5-4-24) Dates by 8 w 2 d u/s. Mat21 09/14/24 low risk;c/w male. 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 07/27/24 baseline LDH and UA elevated. >UA 6.5 11/09/2024 anomaly scan at [facility] Worsening of iron deficiency anemia. Hematocrit 27.8%. 1 hour glucose screen was borderline at 132. Should repeat at next visit. Relevant Orders POC Protein, Urine, Qualitative, Dipstick (Completed) POC Glucose, Urine, Qualitative, Dipstick (Completed) Nonstress Test Proteinuria affecting , antepartum Overview 2+ protein on clean-catch on urinalysis. Has collection kit for 24-hour urine. Preeclampsia labs normal except for elevated uric acid. Proteinuria has worsened since last December; 619 mg/ 24 hr. [facility] appointment at 20 weeks. Nephrology appointment 10/20/2024 Urinalysis 11/23/2024 was negative protein. Autoimmune disorder Overview Lab workup by nephrology October 2024 with positive SHANTI and elevated C3 and normal C4. History of pustular psoriasis. Iron deficiency anemia secondary to inadequate dietary iron intake Overview Worsening of iron deficiency anemia. Hematocrit 27.8%. Rx iron sulfate 325 mg daily. 1 hour glucose screen was borderline at 132. Should repeat at next visit. Had severe iron deficiency anemia last . Repeat iron profile and ferritin. Try Accrufer 30 mg twice daily. Relevant Medications Ferric Maltol (ACCRUFeR) 30 MG capsule Poor growth affecting management of mother in third trimester Other Visit Diagnoses care, third trimester - Primary Relevant Orders POC Protein, Urine, Qualitative, Dipstick (Completed) POC Glucose, Urine, Qualitative, Dipstick (Completed) Nonstress Test at 34w3d status reassuring. Activity and Exercise discussed. movement/PTL or Labor precautions Patient is on vitamins Reviewed Pre-eclampsia signs/symptoms Discussed bASA for PIH prevention from 12 to 36wk Return in about 4 days (around 02/20/2025) for NST. Kartik Maurice APRN 02/16/2025 documented in this encounter Plan of Treatment Upcoming Encounters Date Type Department Care Team (Late st Contact Info) Description 04/17/2025 1:40 PM EDT Visit [facility] [address] [address] [facility] [address] [place] [address] Aydin Crowe MD [address] [facility] [[email or web address]] [address] [place] [address] Scheduled Orders Name Type Priority Associated Diagnoses Orde r Schedule Nonstress Test OB Routine care, third trimester 34 weeks gestation of Chronic hypertension affecting Expected: 02/16/2025, Expires: 05/19/2026 documented as of this encounter Procedures Procedure Name Priority Date/Time Associated Diagnosis Comments POCT PROTEIN, URINE, QUALITATIVE, DIPSTICK Routine 02/16/2025 2:35 PM EDT care, third trimester 34 weeks gestation of POCT GLUCOSE, URINE, QUALITATIVE, DIPSTICK Routine 02/16/2025 2:35 PM EDT care, third trimester 34 weeks gestation of SCANNED - PROCEDURE 02/16/2025 documented in this encounter Results * POC Glucose, Urine, Qualitative, Dipstick (02/16/2025 2:35 PM EDT) Glucose, UA Negative Negative mg/dL [facility] Urine 02/16/2025 2:35 PM EDT us Kartik Maurice APRN POINT OF CARE TEST O RDERABLES Final Result [facility]
[address] [place] [address], * POC Protein, Urine, Qualitative, Dipstick (02/16/2025 2:35 PM EDT) Protein, POC Negative Negative mg/dL [facility] Lot Number 0 [facility] Expiration Date 0 [facility] Urine 02/16/2025 2:35 PM EDT Kartik Maurice APRN POINT OF CARE TEST O RDERABLES Final Result [facility]
[address] [place] [address], [place] [phone] * Procedure Scanned (02/16/2025) Kartik Maurice APRN PROCEDURE/MINOR SURG ICAL ORDERABLES Final Result documented in this encounter Visit Diagnoses Diagnosis care, third trimester- Primary 34 weeks gestation of Chronic hypertension affecting WPW (Dcflh-Nzcgbwxvl-Fjgez syndrome) Anomalous atrioventricular excitation Obesity in , antepartum Obesity complicating , childbirth, or the puerperium, antepartum condition or complication History of pre-eclampsia in prior , currently with other poor obstetric history Proteinuria affecting , antepartum Poor growth affecting management of mother in third trimester, single or unspecified fetus Iron deficiency anemia secondary to inadequate dietary iron intake Herpes simplex type 2 (HSV-2) infection affecting , antepartum Autoimmune disorder Autoimmune disease, not elsewhere classified documented in this encounter Care Teams Engineering Illustrator Relationship Specialty Start Date End Date Jefe Schwartz MD [address] [place] [address] [address] [facility] [address] [place] [address] PCP - General Adolescent Medicine 12/14/23 documented as of this encounter
--- OUTSIDE RECORDS SUMMARY | 2025-02-18 22:19 | XMS_ITS | Encounter Summary ---
Author Organization [facility] Address [address] [place] [address] Care Team Providers Care Bilingual Trainer Name Role Phone Jefe Schwartz MD Primary Care Provider [phone] Reason for Visit * Reason Comments Contractions * Auth/Cert (Routine) Specialty Diagnoses / Procedures Referred By Contac t Referred To Contact Diagnoses labor in third trimester with delivery Referral ID Status Reason Start Date Expiration Date Visits Re quested Visits Authorized [id number] 1 1 Encounter Details Date Type Department Care Team (Late st Contact Info) Description 02/18/2025 10:19 PM EDT - 02/19/2025 8:03 AM EDT Hospital Encounter [facility] [address] [place] [address] Aydin Crowe MD [address] [phone] Gerardo Diaz MD [address] [address] Discharge Disposition: Home or Self Care Social History Tobacco Use Types Packs/Day Years Used Date Smoking Tobacco: Former Cigarettes Q uit: 01/2024 Smokeless Tobacco: Never Tobacco Cessation:Counseling Given: No Comments:Vape. Alcohol Use Standard Drinks/Week Comments Never 0 (1 standard drink = 0.6 oz pur e alcohol) [facility] Utilities Answer Date Recorded In the past 12 months has [employer], [employer], or [employer] threatened to shut off services in your [...] and heating? Not hard at all 02/18/2025 [facility] - Occupational Stress Questionnaire Answer Date [...] things needed for daily living? No 02/18/2025 [place] Depression Scale Answer Date Recorded Retired [place] Depression Score 11 02/23/2024 Retired EPD Scale: [...] GED or equivalent No 02/18/2025 Preferred Language Burmese 02/18/2025 PHQ-2 Answer Date Recorded Patient Health [...] 10:41 PM EDT Lalito Evans RN * [place] Suicide Severity Rating Scale (Screener/Recent Self-Report) Question [...] Discussed plan to follow-up with her primary MANAGER FIBER tomorrow and return to clinic with bleeding [...] through Care Everywhere. * Third Trimester of (Burmese) documented in this encounter Medications at Time [...] tablet Daily. 30 tablet 6 09/14/2024 03/08/2025 labetalol (NORMODYNE) 100 MG tablet Take 1 tablet by mouth 2 (Two) Times a Day. 60 tablet 8 01/01/2025 03/08/2025 valACYclovir (VALTREX) 500 MG tablet Take 1 tablet by mouth Daily. 30 tablet 6 12/27/2024 10:36 AM EDT 12/27/2024 03/08/2025 documented as of this encounter H&P [...] at [address] Cordero in [place] Baseline PEP, 24 Hour urine, HGBA1C, TSH drawn at [facility] (29wk); not on medication No meds prior [...] school Chronic hypertension; no medication prior to 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 Anemia 28 weeks hematocrit 29%.: on iron. PDC u/s 30 wk; EFW 57% Growth ultrasound 12/01 EFW 48%. AC 66%. Psoriatic arthritis [address] Petit, then insurance not covered there, has appt with dermatology in [place] Pustular psoriasis Spontaneous vaginal delivery 12/14/2023 Urinary tract infection I have had utis on and off during Dtofp-Qctjqsalb-Phxte syndrome 10/26/2023 ablation 2019- dx at 16 [...] by: Method: sterile vaginal exam performed ([facility]) Dilation: 4cm Effacement: Cervical Effacement: 50 Station: [...] soft by palpation Resting Tone by IUPC: [place] Units: Laboratory Results: Lab Results (last 24 hours) Procedure Component Value Units Date/Time Comprehensive Metabolic Panel [[id number]] (Abnormal) Collected: 02/18/252346 Specimen: Blood Updated: 02/19/25 [...] race as a factor CBC (No Diff) [[id number]] (Abnormal) Collected: 02/18/25 2347 Specimen: Blood Updated: [...] 02/18/2025 11:02 PM EDT Lisa Trevino [id number] CC: contractions HPI: Patient is 24 y.o. [...] Description 04/17/2025 1:40 PM EDT Visit [facility] OBGYN [address] [facility] [address] [place] [phone] Aydin Crowe MD [address] [facility] [address] [place] [address] documented as of this encounter Procedures Procedure Name Priority Date/Time Associated Diagnosis Comments CBC (NO DIFF) Urgent 02/18/2025 11:47 PM EDT TYPE AND SCREEN Urgent 02/18/2025 11:47 PM EDT COMPREHENSIVE METABOLIC PANEL Urgent 02/18/2025 11:47 PM EDT documented in this encounter Results * Type & Screen (02/18/2025 11:47 PM EDT) ABO Type A 02/19/2025 12:30 AM EDT [facility] RH type Positive 02/19/2025 12:30 AM EDT [facility] Antibody Screen Negative 02/19/2025 12:30 AM EDT [facility] T&S Expiration Date 02/21/2025 11:59:59 PM 02/19/2025 12:30 AM EDT [facility] Blood Line / Unknown 02/18/2025 11 :47 PM EDT 02/18/2025 11:53 PM EDT Jose Wilcox MD BLOOD BANK TEST ORDERABLES Edit ed Result - Final [facility]
[address] [place] [address], * (ABNORMAL) Comprehensive Metabolic Panel (02/18/2025 11:47 PM EDT) Glucose 71 65 - 99 mg/dL 02/19/2025 12:32 AM EDT [facility] BUN 8.9 6.0 - 20.0 mg/dL 02/19/2025 12:32 AM EDT [facility] Creatinine 0.86 0.57 - 1.00 mg/dL 02/19/2025 12:32 AM EDT [facility] Sodium 137 136 - 145 mmol/L 02/19/2025 12:32 AM EDT [facility] Potassium 3.6 3.5 - 5.2 mmol/L 02/19/2025 12:32 AM EDT [facility] Chloride 105 98 - 107 mmol/L 02/19/2025 12:32 AM EDT [facility] CO2 20.5(L) 22.0 - 29.0 mmol/L 02/19/2025 12:32 AM EDT [facility] Calcium 8.7 8.6 - 10.5 mg/dL 02/19/2025 12:32 AM EDT [facility] Total Protein 6.0 6.0 - 8.5 g/dL 02/19/2025 12:32 AM EDT [facility] Albumin 3.2(L) 3.5 - 5.2 g/dL 02/19/2025 12:32 AM EDT [facility] ALT (SGPT) 31 1 - 33 U/L 02/19/2025 12:32 AM EDT [facility] AST (SGOT) 17 1 - 32 U/L 02/19/2025 12:32 AM EDT [facility] Alkaline Phosphatase 91 39 - 117 U/L 02/19/2025 12:32 AM EDT [facility] Total Bilirubin 0.6 0.0 - 1.2 mg/dL 02/19/2025 12:32 AM EDT [facility] Globulin 2.8 gm/dL 02/19/2025 12:32 AM EDT [facility] Comment:Calculated Result A/G Ratio 1.1 g/dL 02/19/2025 12:32 AM EDT [facility] BUN/Creatinine Ratio 10.3 7.0 - 25.0 02/19/2025 12:32 AM EDT [facility] Anion Gap 11.5 5.0 - 15.0 mmol/L 02/19/2025 12:32 AM EDT [facility] eGFR 96.9 >60.0 mL/min/1.7 3 02/19/2025 12:32 AM EDT [facility] Blood Line / Unknown 02/18/2025 11 :47 PM EDT 02/19/2025 12:04 AM EDT [facility] - 02/19/2025 12:32 AM EDT GFR [...] MD LAB BLOOD ORDERABLES Final Resu lt [facility]
[address] [place] [address], * (ABNORMAL) CBC (No Diff) (02/18/2025 11:47 PM EDT) WBC 10.04 3.40 - 10.80 10*3/mm3 02/19/2025 12:11 AM EDT [facility] RBC 3.37(L) 3.77 - 5.28 10*6/mm3 02/19/2025 12:11 AM EDT [facility] Hemoglobin 9.0(L) 12.0 - 15.9 g/dL 02/19/2025 12:11 AM EDT [facility] Hematocrit 28.3(L) 34.0 - 46.6 % 02/19/2025 12:11 AM EDT [facility] MCV 84.0 79.0 - 97.0 fL 02/19/2025 12:11 AM EDT [facility] MCH 26.7 26.6 - 33.0 pg 02/19/2025 12:11 AM EDT [facility] MCHC 31.8 31.5 - 35.7 g/dL 02/19/2025 12:11 AM EDT [facility] RDW 15.4 12.3 - 15.4 % 02/19/2025 12:11 AM EDT [facility] RDW-SD 46.4 37.0 - 54.0 fl 02/19/2025 12:11 AM EDT [facility] MPV 11.2 6.0 - 12.0 fL 02/19/2025 12:11 AM EDT [facility] Platelets 248 140 - 450 10*3/mm3 02/19/2025 12:11 AM EDT [facility] Blood Line / Unknown 02/18/2025 11 :47 PM EDT 02/19/2025 12:08 AM EDT us Jose Wilcox MD LAB BLOOD ORDERABLES Final Resu lt [facility]
[address] [place] [address], documented in this encounter Visit Diagnoses Diagnosis [...] 100mL/hr. documented in this encounter Care Teams Bilingual Trainer Relationship Specialty Start Date End Date Jefe Schwartz MD [facility] [address] [phone] PCP - General Adolescent Medicine 12/14/23 documented as of this encounter
--- OUTSIDE RECORDS SUMMARY | 2025-02-20 09:50 | XMS_ITS | Encounter Summary ---
Author Organization [facility] Address [address] [place] [address] Care Team Providers Care Motorcycle Engine Assembler Name Role Phone Jefe Schwartz MD Primary Care Provider [phone] Reason for Visit * Reason Comments Routine Visit Non-stress Test 35w0d Encounter Details Date Type Department Care Team (Late st Contact Info) Description 02/20/2025 9:50 AM EDT Routine [facility] OBGYN [address] [address] Aydin Crowe MD [address] [place] [address] GA: 35w0d Social History Tobacco Use Types Packs/Day Years Used Date Smoking Tobacco: Former Cigarettes Q uit: 01/2024 Smokeless Tobacco: Never Comments:Vape. Alcohol Use Standard Drinks/Week Comments Never 0 (1 standard drink = 0.6 oz pur e alcohol) [facility] Utilities Answer Date Recorded In the past 12 months has [employer], gas, oil, or water [facility] threatened to shut off services in your [...] and heating? Not hard at all 02/18/2025 [facility] of Occupat ional [facility] - Occupational Stress Questionnaire Answer [...] needed for daily living? No 02/18/2025 [place] Depression Scale Answer Date Recorded Retired [place] Depression Score 11 02/23/2024 Retired EPD Scale: [...] GED or equivalent No 02/18/2025 Preferred Language Burkinan 02/18/2025 PHQ-2 Answer Date Recorded Patient Health [...] 130s/80s. Patient Active Problem List Diagnosis WPW (Ppyri-Mgvkcmrli-Sifye syndrome) SVT (supraventricular tachycardia) Herpes simplex type [...] antepartum Overview BMI 44 Anomaly scan at [facility]. History of pre-eclampsia in prior , [...] Info) Description 04/17/2025 1:40 PM EDT Visit [facility] O[facility]YN [address] [facility] [address] [place] [address] Aydin Crowe MD [address] [facility] [address] [place] [address] documented as of this encounter Procedures Procedure Name Priority Date/Time Associated Diagnosis Comments POCT URINALYSIS DIPSTICK, MANUAL Routine 02/20/2025 10:32 AM EDT care, antepartum, unspecified SCANNED - PROCEDURE 02/20/2025 documented in this encounter Results * POC Urinalysis Dipstick (02/20/2025 10:32 AM EDT) Glucose, UA Negative Negative mg/dL [facility] Protein, POC Negative Negative mg/dL [facility] Urine 02/20/2025 10:3 2 AM EDT us Aydin Crowe MD POINT OF CARE TEST ORDERABLES F inal Result [facility]
[address] [place] [address], [place] [phone] * Procedure Scanned (02/20/2025) us Aydin Crowe [...] complication documented in this encounter Care Teams Motorcycle Engine Assembler Relationship Specialty Start Date End Date Jefe Schwartz MD [facility] [place] [address] [address] PCP - General Adolescent Medicine 12/14/23 documented as of this encounter
--- OUTSIDE RECORDS SUMMARY | 2025-02-23 14:03 | XMS_ITS | Encounter Summary ---
Author Organization [facility] Address [address] [place] [address] Care Team Providers Care Ct Scan Technician Name Role Phone Jefe Schwartz MD Primary Care Provider [phone] Reason for Referral * Diagnostic Imaging (Routine) - Closed Specialty Diagnoses / Procedures Referred By Contact Referred To Contact Obstetrics and Gynecology Diagnoses Poor growth affecting management of mother in third trimester, single or unspecified fetus Procedures [facility] [place] Aydin Crowe MD [address] [place] [address] Phone: tel: fax: [facility] [address] [place] [phone] Phone: tel: fax: Referral ID Status Reason Start Date Expiration Date Visits Re quested Visits Authorized [id number] Closed 02/13/2025 05/15/2026 1 1 Reason for Visit * Diagnostic Imaging (Routine) - Closed Specialty Diagnoses / Procedures Referred By Contact Referred To Contact Obstetrics and Gynecology Diagnoses Poor growth affecting management of mother in third trimester, single or unspecified fetus Procedures [facility] Diagnostic [place] Aydin Crowe MD [address] [place] [address] Phone: tel: fax: [facility]IC[facility] [address] [facility] [address] [place] [address] Phone: tel: fax: Referral ID Status Reason Start Date Expiration Date Visits Re quested Visits Authorized [id number] Closed 02/13/2025 05/15/2026 1 1 Encounter Details Date Type Department Care Team (Late st Contact Info) Description 02/23/2025 2:03 PM EDT - 02/23/2025 11:59 PM EDT Hospital Encounter [facility] [address] [place] [phone] Aydin Crowe MD [address] [facility] [address] [place] [address] Poor growth affecting management of mother in third trimester, single or unspecified fetus Discharge Disposition: Home or Self Care Social History Tobacco Use Types Packs/Day Years Used Date Smoking Tobacco: Former Cigarettes Q uit: 01/2024 Smokeless Tobacco: Never Comments:Vape. Alcohol Use Standard Drinks/Week Comments Never 0 (1 standard drink = 0.6 oz pur e alcohol) [facility] Utilities Answer Date Recorded In the past 12 months has [employer], gas, oil, or water [employer] threatened to shut off services in your [...] and heating? Not hard at all 02/18/2025 [facility] [place] of Occupat ional Health - Occupational Stress [...] things needed for daily living? No 02/18/2025 [place] Depression Scale Answer Date Recorded Retired [place] Depression Score 11 02/23/2024 Retired EPD Scale: [...] GED or equivalent No 02/18/2025 Preferred Language Estonian 02/18/2025 PHQ-2 Answer Date Recorded Patient Health [...] PM EDT documented as of this encounter Medications at Time of Discharge Ferric Maltol (ACCRUFeR) 30 MG capsule Take 1 capsule by mouth 2 (Two) Times a Day. Take on an empty stomach. 60 capsule 9 01/18/2025 vitamins (PRENATABS RX) 29-1 MG tablet tablet Take 1 tablet by mouth Daily. 30 tablet 11 07/25/2024 07/25/2025 aspirin 81 MG chewable tablet Chew 1 tablet Daily. 30 tablet 6 09/14/2024 03/08/2025 labetalol (NORMODYNE) 100 MG tablet Take 1 tablet by mouth 2 (Two) Times a Day. 60 tablet 8 01/01/2025 03/08/2025 valACYclovir (VALTREX) 500 MG tablet Take 1 tablet by mouth Daily. 30 tablet 6 12/27/2024 10:36 AM EDT 12/27/2024 03/08/2025 documented as of this encounter Plan of Treatment Upcoming Encounters Date Type Department Care Team (Late st Contact Info) Description 04/17/2025 1:40 PM EDT Visit [facility] OBGYN [address] [place] [address] Aydin Crowe MD [address] [place] [facility] [address] [place] [address] documented as of this encounter Procedures Procedure Name Priority Date/Time Associated Diagnosis Comments [facility] Routine 02/23/2025 2:44 PM EDT Poor growth affecting management of mother in third trimester, single or unspecified fetus documented in this encounter Results * [facility] (02/23/2025 2:44 PM EDT) Anatomical Region Laterality Modality Ultrasound 02/23/2025 2:19 PM EDT Narrative 02/23/2025 2:48 PM EDT PAT NAME: LISA RILEY [facility] REC#: [id number] DA: 2000 PAT GEND: F PAT TYPE: O EXAM JAYSON: [id number] REF PHYS AYDIN CROWE Comparison Studies The [...] EFW (oz) 11 oz EFW by: Hadlock (OLF-OT-EZ-FL) Extended Cav. septi pel. tr 5.9 mm [...] Normal Heart / Thorax 3-vessel view: Normal 7-heeczq-sbhhxow view: normal Stomach: Appears normal Kidneys: Appears [...] Recommend 37 week delivery. Coding ======= Description: 87625-05 Follow Up Ultrasound Description: 15009-06 BPP without NST Description: 19018-06 Doppler Umbilical Artery Insurance Risk Analyst: Destini Hall RDMS Physician: Medhat De Anda MD, FACOG Electronically signed by: Medhat De Anda MD, FACOG at: 14:48 Procedure Note Medhat De Anda MD - 02/23/2025 PAT NAME: LISA RILEY MED REC#: [id number] DA: 2000 PAT GEND: F PAT TYPE: O EXAM JAYSON: [id number] REF PHYS CASIMIRO AYDIN Comparison Studies The findings of this study are compared to the prior ultrasound studydated 01/25/25. Patient Status Outpatient Indication ======== contractions. CHTN. Chronic proteinuria. Maternal Ghosh ParkinsonWhite. Hx PTD 35 wk - preeclampsia. Morbid obesity BMI 47 Maternal Assessment Qkxgoi605 cm Ybitkv119 kg Weight (lb)273 lb BMI47.19 kg/m Method ======= Transabdominal ultrasound examination. View: Limited by patient bodyhabitus ========= Schwarz . Number of fetuses: 1 Dating ====== Cycle:irregular cycle GA by prior [id number] w + 3 d CONG by prior [...] GA35 w + 3 d Assigned CONG:03/27/2025 [id number] d Biometry Standard BPD85.5 mm 34w 3d 27% Hadlock AKF814.7 mm 36w 6d 79% Van HC315.5 mm 35w 3d 18% Hadlock Cerebellum tr45.4 mm 34w 6d 27% Hill AC313.1 mm 35w 2d 53% Hadlock Femur67.2 mm 34w 4d 22% Hadlock Zvzeaza08.2 mm 34w 2d 40% Van HC / AC1.01 EFW2,567 g 34w 6d 37% Hadlock EFW (lb)5 lb EFW (oz)11 oz EFW by:Hadlock (BJD-MO-FC-FL) Extended Cav. septi pel. tr5.9 mm CM6.7 mm 26% Nicolaides Head / Face / Neck Cephalic index0.77 14% Nicolaides Extremities / Bony Struc FL / BPD0.79 FL / HC0.21 FL / AC0.21 Other Structures XIO043 bpm General Evaluation Cardiac activity present. FHR 177 bpm. movements present. Presentation cephalic. Placenta Placental site: posterior, fundal. Amniotic fluid Amount of AF: normal. MVP 4.8 cm. ELIZABETH 13.6 cm. Q1 3.2 cm,Q2 4.8 cm, Q3 3.4 cm, Q4 2.3 cm. Anatomy Cranium:Normal Cavum septi pellucidi:Normal Cerebellum:Normal Cisterna magna:Normal 4-chamber view:Appears normal RVOT view:Normal LVOT view:Normal Heart / Thorax 3-vessel view:Normal 6-oivyio-qpdqlop view:normal Stomach:Appears normal Kidneys:Appears normal Bladder:Appears normal [...] movements 2: tone 2: Amniotic fluid volume 8 Biophysical profile score Consultation / Office Visit Office note to follow Impression Today's exam reveals a SIUP in cephalic presentation with biometryconsistent with dates. Limited anatomic survey appears normal. TheAFI, UA dopplers and BPP are normal. Recommendation Follow-up as clinically indicated. Recommend 37 week delivery. Coding ======= Description:59879-76 Follow Up Ultrasound Description:43263-51 BPP without NST Description:57619-93 Doppler Umbilical Artery Insurance Risk Analyst: Destini Hall RDMS Physician: Medhat De Anda MD, FACOG Electronically signed by: Medhat De Anda MD, FACOG at: 14:48 us Aydin Crowe MD [facility] US ORDERABLES Final Result documented in this encounter Visit Diagnoses Diagnosis Poor growth affecting management of mother in third trimester, single or unspecified fetus documented in this encounter Care Teams Ct Scan Technician Relationship Specialty Start Date End Date Jefe Schwartz MD [address] [place] [facility] [address] [facility] 2[address] [facility] [place] [address] PCP - General Adolescent Medicine 12/14/23 documented as of this encounter
--- OUTSIDE RECORDS SUMMARY | 2025-02-23 14:15 | XMS_ITS | Encounter Summary ---
Author Organization [facility] Address [address] [place] [address] Care Team Providers Care Construction Trench Digger Name Role Phone Jefe Schwartz MD Primary Care Provider [phone] Reason for Visit * Reason Comments CHTN; proteinuria; contractions; IUGR Encounter Details Date Type Department Care Team (Late st Contact Info) Description 02/23/2025 2:15 PM EDT Office Visit [facility] MATERNAL MEDICINE [address] [place] [phone] Medhat De Anda MD [address] [facility] [address] [place] [address] Chronic hypertension affecting (Primary Dx); Poor growth affecting management of mother in third trimester, single or unspecified fetus Social History Tobacco Use Types Packs/Day Years Used Date Smoking Tobacco: Former Cigarettes Q uit: 01/2024 Smokeless Tobacco: Never Comments:Vape. Alcohol Use Standard Drinks/Week Comments Never 0 (1 standard drink = 0.6 oz pur e alcohol) [facility] Utilities Answer Date Recorded In the past 12 months has [employer], gas, oil, or water company threatened to [...] heating? Not hard at all 02/18/2025 [facility] [place] of Occupat ional Health - Occupational Stress [...] things needed for daily living? No 02/18/2025 [place] Depression Scale Answer Date Recorded Retired [place] Depression Score 11 02/23/2024 Retired EPD Scale: [...] Medhat De Anda MD, FACOG Maternal Medicine, [facility] documented in this encounter Plan of Treatment Upcoming Encounters Date Type Department Care Team (Late st Contact Info) Description 04/17/2025 1:40 PM EDT Visit [facility] OBGYN [address] [place] [address] Aydin Crowe MD [address] [place] [phone] documented as of this encounter Visit Diagnoses Diagnosis Chronic hypertension affecting - Primary Poor growth affecting management of mother in third trimester, single or unspecified fetus documented in this encounter Care Teams Construction Trench Digger Relationship Specialty Start Date End Date Jefe Schwartz MD [address] [facility] [address] [place] [address] PCP - General Adolescent Medicine 12/14/23 documented as of this encounter
--- OUTSIDE RECORDS SUMMARY | 2025-02-23 15:15 | XMS_ITS | Encounter Summary ---
Author Organization [facility] Address [address] [place] [address] Care Team Providers Care Mercury Purifier Name Role Phone Jefe Schwartz MD Primary Care Provider [phone] Reason for Visit * Reason Comments Routine Visit Encounter Details Date Type Department Care Team (Late st Contact Info) Description 02/23/2025 3:15 PM EDT Routine [facility] OBGYN [address] [place], [place] [phone] Kartik Maurice, FEED GRINDER [address] [facility] [address] [place] [address] GA: 35w3d Social History Tobacco Use Types Packs/Day Years Used Date Smoking Tobacco: Former Cigarettes Q uit: 01/2024 Smokeless Tobacco: Never Comments:Vape. Alcohol Use Standard Drinks/Week Comments Never 0 (1 standard drink = 0.6 oz pur e alcohol) [facility] Utilities Answer Date Recorded In the past 12 months has [employer], gas, oil, or water [employer] threatened to shut off services in your [...] and heating? Not hard at all 02/18/2025 [facility] [place] of Occupat ional Health - Occupational Stress [...] things needed for daily living? No 02/18/2025 [place] Depression Scale Answer Date Recorded Retired [place] Depression Score 11 02/23/2024 Retired EPD Scale: [...] GED or equivalent No 02/18/2025 Preferred Language Chinese 02/18/2025 PHQ-2 Answer Date Recorded Patient Health [...] Sign Reading Time Taken Comments Blood Pressure 124/70 02/23/2025 3:36 PM EDT Pulse - - Temperature - - Respiratory Rate - - Oxygen Saturation - - Inhaled Oxygen Concentration - - Weight 124 kg (272 lb 12.8 oz) 02/23/2025 3:36 P M EDT Height - - Body Mass Index 45.4 02/18/2025 10:39 PM EDT documented in this encounter Progress Notes * Kartik Maurice APRN - 02/23/2025 3:15 PM EDT Images from the original note were not included. OB FOLLOW UP CC- Here for care of Lisa Trevino is a 24 y.o. 35w3d patient being seen today for her obstetrical follow up visit. Patient reports increased pressure/pain at pelvic/vaginal regions, daily headaches (blurred vision sometimes; Tylenol helps sometimes), +1 BLE edema, daily nausea (emeses x3 since Thursday; zofran no help), pains that begin at LUQ with radiation to RUQ, daily [place] Guillaume, and daily h eartburn/reflux (Tums helps sometimes). Her care is complicated by (and status): see below. Patient Active Problem List Diagnosis WPW (Xmecl-Kdjsfficq-Qlqzg syndrome) SVT (supraventricular tachycardia) Herpes simplex type 2 (HSV-2) infection affecting , antepartum Obesity in , antepartum Cigarette smoker History of pre-eclampsia in prior , currently Chronic hypertension affecting Proteinuria affecting , antepartum Autoimmune disorder Iron deficiency anemia secondary to inadequate dietary iron intake labor in third trimester without delivery Poor growth affecting management of mother in third trimester GBS Status: was already done and is negative. Lab Results Component Value Date STREPGPB No Group B Streptococcus isolated 02/13/2025 Allergies Allergen Reactions Fentanyl Mental Status Change Pt gets mean broke 4 restraints and aggressive towards staff Flu Status: not currently flu season Her Delivery Plan is: IOL 03/06 US today: yes, via PDC for growth and BPP Today's exam reveals a SIUP in cephalic presentation with biometry consistent with dates. Limited anatomic survey appears normal. The ELIZABETH, UA dopplers and BPP are normal. Follow-up as clinically indicated. Recommend 37 week delivery. Non Stress Test: Yes, 20+ minutes non-stress test: NST: Reactive 15x15 indication: CHTN, DFM Need nitrous consent: ACOG information on pain management during labor given; planning on an epidural. ROS - Patient Denies: Loss of Fluid, Vaginal Spotting, and skin itching Movement: decreased (reported the same during PDC visit) Other than what is documented in the HPI, all other systems reviewed and are negative. The additional following portions of the patient's history were reviewed and updated as appropriate: allergies, current medications, past family history, past medical history, past social history, past surgical history, and problem list. I have reviewed and agree with the HPI, ROS, and historical information as entered above. Kartik Maurice, FEED GRINDER EXAM: Vitals BP: 124/70 Weight: 124 kg (272 lb 12.8 oz) Heart Rate: NST Dilation/Effacement/Station Dilation: 4 Effacement (%): 50 Urine Glucose Read-only: Negative Urine Protein Read-only: Negative Assessment and Plan Problem List Items Addressed This Visit WPW (Fixum-Tjujlfmgm-Bwlbc syndrome) Overview Dr. Fernando in [place] Echo & 2 week holter monitor in August 2023 wnl per patient. PDC appt 11/04; ultrasound within normal limits and normal growth. EFW 57%. No follow-up ultrasound scheduled. Relevant Medications labetalol (NORMODYNE) 100 MG tablet Herpes simplex type 2 (HSV-2) infection affecting , antepartum Overview Pending culture results from Dr. Cordero in [facility] [place]. 10/11/2023 HSV 2 IgG positive; consistent with recurrent HSV2. Rx valtrex For suppression 500 mg daily. Relevant Medications valACYclovir (VALTREX) 500 MG tablet Obesity in , antepartum Overview BMI 44 Anomaly scan at [facility]. History of pre-eclampsia in prior , currently [...] low on labetalol 100 mg twice daily. [facility] growth ultrasounds at 28 and 32 weeks. [...] elevated. >UA 6.5 11/09/2024 anomaly scan at [facility] Worsening of iron deficiency anemia. Hematocrit 27.8%. 1 hour glucose screen was borderline at 132. Should repeat at next visit. Relevant Orders POC Protein, Urine, Qualitative, Dipstick (Completed) POC Glucose, Urine, Qualitative, Dipstick (Completed) Autoimmune disorder Overview Lab workup by nephrology [...] (Completed) POC Glucose, Urine, Qualitative, Dipstick (Completed) at 35w3d status reassuring. Reviewed Pre-eclampsia signs/symptoms IOL date and time reviewed with pt. 03/06/25 at 0500 am Signs of labor reviewed Kick counts reviewed Activity and Exercise discussed. Return in about 4 days (around 02/27/2025) for NST. Kartik Maurice APRN 02/23/2025 documented in this encounter Plan of Treatment Upcoming Encounters Date Type Department Care Team (Late st Contact Info) Description 04/17/2025 1:40 PM EDT Visit [facility] OBGYN [address] [phone] Aydin Crowe MD [address] [address] documented as of this encounter Procedures Procedure Name Priority Date/Time Associated Diagnosis Comments POCT PROTEIN, URINE, QUALITATIVE, DIPSTICK Routine 02/23/2025 3:54 PM EDT care, third trimester 35 weeks gestation of POCT GLUCOSE, URINE, QUALITATIVE, DIPSTICK Routine 02/23/2025 3:54 PM EDT care, third trimester 35 weeks gestation of SCANNED - PROCEDURE 02/23/2025 documented in this encounter Results * POC Glucose, Urine, Qualitative, Dipstick (02/23/2025 3:54 PM EDT) Glucose, UA Negative Negative mg/dL [facility] Urine 02/23/2025 3:54 PM EDT Kartik Maurice FEED GRINDER POINT OF CARE TEST O RDERABLES Final Result Performing Organization Address City/[facility]/ZIP Co de Phone Number [facility]
[address] [place] [address], [place] [phone] * POC Protein, Urine, Qualitative, Dipstick (02/23/2025 3:54 PM EDT) Protein, POC Negative Negative mg/dL [facility] Lot Number 0 [facility] Expiration Date 0 [facility] Urine 02/23/2025 3:54 PM EDT Kartik Maurice APRN POINT OF CARE TEST O RDERABLES Final Result Performing Organization Address City/[facility]/ZIP Co de Phone Number [facility]
[address] [place] [address], [place] [phone] * Procedure Scanned (02/23/2025) Kartik Maurice APRN PROCEDURE/MINOR SURG ICAL ORDERABLES Final Result documented in this encounter Visit Diagnoses Diagnosis care, third trimester- Primary 35 weeks gestation of WPW (Vavmp-Tuecgmfsc-Kdpit syndrome) Anomalous atrioventricular excitation History of pre-eclampsia in prior , currently with other poor obstetric history Obesity in , antepartum Obesity complicating , childbirth, or the puerperium, antepartum condition or complication Chronic hypertension affecting Poor growth affecting management of mother in third trimester, single or unspecified fetus Iron deficiency anemia secondary to inadequate dietary iron intake Autoimmune disorder Autoimmune disease, not elsewhere classified Herpes simplex type 2 (HSV-2) infection affecting , antepartum documented in this encounter Care Teams Mercury Purifier Relationship Specialty Start Date End Date Jefe Schwartz MD 1210 [facility] [address] [place] [phone] PCP - General Adolescent Medicine 12/14/23 documented as of this encounter
--- OUTSIDE RECORDS SUMMARY | 2025-02-27 09:40 | XMS_ITS | Encounter Summary ---
Author Organization [facility] Address [address] [place] [address] Care Team Providers Care Forms Examiner Name Role Phone Jefe Schwartz MD Primary Care Provider [phone] Reason for Referral * Diagnostic Imaging (Emergency) - Closed Specialty Diagnoses / Procedures Referred By Contact Referred To Contact Obstetrics and Gynecology Diagnoses 36 weeks gestation of Chronic hypertension affecting Procedures US Biophysical Profile;With Non-Stress Testing Aydin Crowe MD [address] [address] Phone: tel: fax: [facility] [address] [address] Phone: tel: fax: Referral ID Status Reason Start Date Expiration Date Visits Re quested Visits Authorized [id number] Closed 02/27/2025 05/29/2026 1 1 Reason for Visit * Reason Comments Routine Visit Non-stress Test Encounter Details Date Type Department Care Team (Late st Contact Info) Description 02/27/2025 9:40 AM EDT Routine [facility] [address] [facility] [address] [place] [phone] Aydin Crowe MD [address] [place] [id number] [place]: 36w0d Social History Tobacco Use Types Packs/Day Years Used Date Smoking Tobacco: Former Cigarettes Q uit: 01/2024 Smokeless Tobacco: Never Comments:Vape. Alcohol Use Standard Drinks/Week Comments Never 0 (1 standard drink = 0.6 oz pur e alcohol) [facility] Utilities Answer Date Recorded In the past [...] things needed for daily living? No 02/18/2025 [place] Depression Scale Answer Date Recorded Retired [place] Depression Score 11 02/23/2024 Retired EPD Scale: [...] BLE (described as tight, but not painful), [place] Guillaume that cause increased vaginal pain, daily [...] below. Patient Active Problem List Diagnosis WPW (Eixrz-Lghhfrzyp-Thgcu syndrome) SVT (supraventricular tachycardia) Herpes simplex type [...] Visit [facility]YN 1700 [facility] [address] [place] [phone] Aydin Crowe MD 1700 [facility] [address] [place] [address] documented as of this encounter Procedures Procedure [...] EDT PAT NAME: SARBJIT RILEY MED REC#: [id number] DA: 2000 PAT GEND: F PAT TYPE: O EXAM GERI: [id number] REF PHYS AYDIN CROWE Indication ======== Non [...] of testing for the condition being monitored. Reception Specialist: Annamaria Eli RT R, [place] Physician: Aydin Crowe MD Electronically signed by: Aydin Crowe MD at: 11:12 Procedure Note Aydin Crowe MD - 02/27/2025 PAT NAME: SARBJIT RILEY MED REC#: [id number] DA: 2000 PAT GEND: F PAT TYPE: O EXAM GERI: [id number] REF PHYS AYDIN CROWE Indication ======== Non reactive NST; Morbid obesity BMI 45 Comparison Studies The findings of this study are compared to the prior ultrasound studydated 02/23/25 Method ======= Voluson E6, Transabdominal ultrasound examination. View: Sufficient ========= Schwarz . Number of fetuses: 1 Dating ====== Cycle:irregular cycle Method of dating:based on stated CONG GA by prior [id number] w + 0 d CONG by prior assessment:03/27/2025 Previous Ultrasound on:07/25/2024 Type of prior assessment:GS mean Previous dating:based on stated CONG, selected on 02/03/2025 Agreed CONG of previous datin03/27/2025 Assigned:based on stated CONG, selected on 02/27/2025 Assigned [email or web address] w + 0 d Assigned CONG:03/27/2025 [id number] d General Evaluation Cardiac activity present. FHR [...] schedule of testing for the condition beingmonitored. Reception Specialist: Annamaria Eli RT R, [facility] Physician: Aydin Crowe MD Electronically signed by: Aydin Crowe MD at: 11:12 Aydin Crowe MD [facility] [place] US ORDERABLES Final Result * POC Glucose, Urine, Qualitative, Dipstick (02/27/2025 10:27 AM EDT) Glucose, UA Negative Negative mg/dL [facility] Urine 02/27/2025 10:2 7 AM EDT Aydin Crowe MD POINT OF CARE TEST ORDERABLES F inal Result Performing Organization Address [facility]/ZIP Co de Phone Number [facility]
[address] [place] [address], [place] [phone] * POC Protein, Urine, Qualitative, Dipstick (02/27/2025 10:27 AM EDT) Protein, POC Negative Negative mg/dL [facility] Lot Number 0 [facility] Expiration Date 0 [facility] Urine 02/27/2025 10:2 7 AM EDT Aydin Crowe MD POINT OF CARE TEST ORDERABLES F inal Result Performing Organization Address City/[facility]/ZIP Co de Phone Number [facility]
[address] [place] [address], [place] [phone] * Procedure Scanned (02/27/2025) Aydin Crowe MD PROCEDURE/MINOR SURGICAL ORDERA BLES Final Result documented in this encounter Visit Diagnoses Diagnosis care, third trimester- Primary 36 weeks gestation of Chronic hypertension affecting 36 weeks gestation of Chronic hypertension affecting documented in this encounter Care Teams Forms Examiner Relationship Specialty Start Date End Date Jefe Schwartz MD [address] [place] [address] [place] [address] PCP - General Adolescent Medicine 12/14/23 documented as of this encounter
--- OUTSIDE RECORDS SUMMARY | 2025-02-27 10:50 | XMS_ITS | Encounter Summary ---
Author Organization [facility] Address [address] [place] [address] Care Team Providers Care Preschool Teacher'S Assistant Name Role Phone Jefe Schwartz MD Primary Care Provider [phone] Reason for Visit * Diagnostic Imaging (Emergency) - Closed Specialty Diagnoses / Procedures Referred By Contact Referred To Contact Obstetrics and Gynecology Diagnoses 36 weeks gestation of Chronic hypertension affecting Procedures US Biophysical Profile;With Non-Stress Testing Aydin Crowe MD [address] [address] Phone: tel: fax: [facility] OBGYN [address] [address] Phone: tel: fax: Referral ID Status Reason Start Date Expiration Date Visits Re quested Visits Authorized [id number] Closed 02/27/2025 05/29/2026 1 1 Encounter Details Date Type Department Care Team (Latest Contact Info) Description 02/27/2025 10:50 AM EDT Ancillary Procedure [facility] OBGYN [address] [phone] 36 weeks gestation of ; Chronic hypertension affecting Social History Tobacco Use Types Packs/Day Years Used Date Smoking Tobacco: Former Cigarettes Q uit: 01/2024 Smokeless Tobacco: Never Comments:Vape. Alcohol Use Standard Drinks/Week Comments Never 0 (1 standard drink = 0.6 oz pur e alcohol) [facility] Utilities Answer Date Recorded In the [...] heating? Not hard at all 02/18/2025 [facility] of Occupat ional Health - Occupational [...] things needed for daily living? No 02/18/2025 [place] Depression Scale Answer Date Recorded Retired [place] Depression Score 11 02/23/2024 Retired EPD Scale: [...] GED or equivalent No 02/18/2025 Preferred Language Thai 02/18/2025 PHQ-2 Answer Date Recorded Patient Health [...] Info) Description 04/17/2025 1:40 PM EDT Visit [facility] OBGYN [address] [place] [address] Aydin Crowe MD [address] [place] [address] documented as of this encounter Procedures Procedure Name Priority Date/Time Associated Diagnosis Comments US BIOPHYSICAL PROFILE;WITH NON-STRESS TESTING STAT 02/27/2025 11:10 AM EDT 36 weeks gestation of Chronic hypertension affecting documented in this encounter Results * US Biophysical Profile;With Non-Stress Testing (02/27/2025 11:10 AM EDT) Anatomical Region Laterality Modality Body Ultrasound 02/27/2025 11:5 2 AM EDT Narrative 02/27/2025 11:12 AM EDT PAT NAME: SARBJIT RILEY MED REC#: [id number] DA: 2000 PAT GEND: F PAT TYPE: O EXAM GERI: [id number] REF PHYS AYDIN CROWE Indication ======== Non [...] of testing for the condition being monitored. Director Of Group Counseling Program: RT Kyle Pringle, [facility] Physician: Aydin Crowe MD Electronically signed by: Aydin Crowe MD at: 11:12 Procedure Note Aydin Crowe MD - 02/27/2025 PAT NAME: SARBJIT RILEY [facility] REC#: [id number] DA: 2000 PAT GEND: F PAT TYPE: O EXAM GERI: [id number] REF PHYS AYDIN CROWE Indication ======== Non reactive NST; Morbid obesity BMI 45 Comparison Studies The findings of this study are compared to the prior ultrasound studydated 02/23/25 Method ======= Voluson E6, Transabdominal ultrasound examination. View: Sufficient ========= Schwarz . Number of fetuses: 1 Dating ====== Cycle:irregular cycle Method of dating:based on stated CONG GA by prior [id number] w + 0 d CONG by prior assessment:03/27/2025 Previous Ultrasound on:07/25/2024 Type of prior assessment:GS mean Previous dating:based on stated CONG, selected on 02/03/2025 Agreed CONG of previous datin03/27/2025 Assigned:based on stated CONG, selected on 02/27/2025 Assigned [email or web address] w + 0 d Assigned CONG:03/27/2025 [email or web address] d General Evaluation Cardiac activity present. FHR 173 bpm. movements visualized. Presentation cephalic. Placenta Placental site: posterior. Amniotic Fluid Assessment Amount of AF: normal MVP 3.8 cm. ELIZABETH 11.7 cm. Q1 2.3 cm, Q2 2.9 cm, Q3 3.8 cm, Q4 2.8 cm Biophysical Profile 2: breathing movements 2: Gross body movements 2: tone 2: Amniotic fluid volume NST: non-reactive 10 Biophysical profile score Interpretation: normal Anatomy Lateral ventricles:Appears normal 4-chamber view:suboptimal Stomach:Appears normal Kidneys:Appears normal Bladder:Appears normal Gender:male Wants to know gender:yes Impression Normal BPP Amniotic fluid volume is normal. Recommendation Continue the routine schedule of testing for the condition beingmonitored. Director Of Group Counseling Program: RT Kyle Pringle, [facility] Physician: Aydin Crowe MD Electronically signed by: Aydin Crowe MD at: 11:12 Aydin Crowe MD [facility] US ORDERABLES Final Result documented in this encounter Visit Diagnoses Diagnosis 36 weeks gestation of Chronic hypertension affecting documented in this encounter Care Teams Preschool Teacher'S Assistant Relationship Specialty Start Date End Date Jefe Schwartz MD [address] [place] [facility] [address] [place] [address] PCP - General Adolescent Medicine 12/14/23 documented as of this encounter
--- OUTSIDE RECORDS SUMMARY | 2025-03-02 09:30 | XMS_ITS | Encounter Summary ---
Author Organization [facility] Address [address] [place] [address] Care Team Providers Care Power Ballast Machine Operator Name Role Phone Jefe Schwartz MD Primary Care Provider [phone] Reason for Visit * Reason Comments Non-stress Test Routine Visit Encounter Details Date Type Department Care Team (Late st Contact Info) Description 03/02/2025 9:30 AM EDT Routine [facility] OBGYN [address] [place] [address] Kartik Maurice, MATT [address] [facility] [address] [place] [address] GA: [id number] Social History Tobacco Use Types Packs/Day Years Used Date Smoking Tobacco: Some Days Cigarettes Last attempted to quit: 01/2024 Smokeless Tobacco: Never Tobacco Cessation:Ready to Q uit: Not Asked; Counseling Given: Not Answered Comments:Vape. Alcohol Use Standard Drinks/Week Comments Never 0 (1 standard drink = 0.6 oz pur e alcohol) [facility] Utilities Answer Date Recorded In the past 12 months has [employer], gas, oil, or water company threatened to [...] and heating? Not hard at all 02/18/2025 [facility] [place] of Occupat ional Health - Occupational Stress [...] things needed for daily living? No 02/18/2025 [place] Depression Scale Answer Date Recorded Retired [place] Depression Score 11 02/23/2024 Retired EPD Scale: [...] GED or equivalent No 02/18/2025 Preferred Language Maltese 02/18/2025 PHQ-2 Answer Date Recorded Patient Health [...] below. Patient Active Problem List Diagnosis WPW (Excor-Lryzjwxmp-Gozth syndrome) SVT (supraventricular tachycardia) Herpes simplex type [...] historical information as entered above. Kartik Maurice, AIRPLANE FUELER EXAM: Vitals BP: 128/70 Weight: 124 kg (274 lb) Heart Rate: NST Dilation/Effacement/Station Dilation: 4 Effacement (%): 70 Urine Glucose Read-only: Negative Urine Protein Read-only: Negative Assessment and Plan Problem List Items Addressed This Visit WPW (Oacxs-Tdzhemvio-Xnpio syndrome) Overview Dr. Fernando in [place] Echo & 2 week holter monitor in [...] antepartum Overview BMI 44 Anomaly scan at [facility]. History of pre-eclampsia in prior [...] Description 04/17/2025 1:40 PM EDT Visit [facility] [address] [facility] [address] [place] [phone] Aydin Crowe MD [address] [place] [address] documented as of this encounter Procedures Procedure Name Priority Date/Time Associated Diagnosis Comments POCT URINALYSIS DIPSTICK, MANUAL Routine 03/02/2025 9:58 AM EDT care, antepartum, unspecified SCANNED - PROCEDURE 03/02/2025 documented in this encounter Results * POC Urinalysis Dipstick (03/02/2025 9:58 AM EDT) Glucose, UA Negative Negative mg/dL [facility] Protein, POC Negative Negative mg/dL [facility] Urine 03/02/2025 9:58 AM EDT Kartik Maurice APRN POINT OF CARE TEST O RDERABLES Final Result [facility]
[address] [place] [address], [place] [phone] * Procedure Scanned (03/02/2025) Kartik Maurice APRN PROCEDURE/MINOR SURG ICAL ORDERABLES Final Result documented in this encounter Visit Diagnoses Diagnosis care, antepartum, unspecified - Primary WPW (Plnvh-Lxazkrjdv-Szbyd syndrome) Anomalous atrioventricular excitation Obesity in , [...] intake documented in this encounter Care Teams Power Ballast Machine Operator Relationship Specialty Start Date End Date Jefe Schwartz MD [address] [facility] [address] [place] [address] PCP - General Adolescent Medicine 12/14/23 documented as of this encounter
--- OUTSIDE RECORDS SUMMARY | 2025-03-06 | XMS_ITS | Encounter Summary ---
Author Organization [facility] Address [address] [place] [address] Care Team Providers Care Cash Application Representative Name Role Phone Jefe Schwartz MD Primary Care Provider [phone] Reason for Visit * Auth/Cert (Routine) Specialty Diagnoses / Procedures Referred By Contac t Referred To Contact Diagnoses Chronic hypertension in obstetric context, third trimester Referral ID Status Reason Start Date Expiration Date Visits Re quested Visits Authorized [id number] 1 1 Encounter Details Date Type Department Care Team (Latest Contact Info) Description 03/06/2025 - 03/06/2025 11:59 PM EDT Hospital Encounter [facility] LABOR AND DELIVERY PROCEDURES [address] [place] [address] Discharge Disposition: Home or Self Care Social History Tobacco Use Types Packs/Day Years Used Date Smoking Tobacco: Former Cigarettes Q uit: 01/2024 Passive Smoke Exposure: Past Smokeless Tobacco: Never Comments:Vape. Alcohol Use Standard Drinks/Week Comments Never 0 (1 standard drink = 0.6 oz pur e alcohol) [facility] Utilities Answer Date Recorded In the past 12 months has [employer], gas, oil, or water [employer] threatened to shut off services in your [...] and heating? Not hard at all 03/06/2025 [facility] [place] of Occupat ional [facility] - Occupational Stress Questionnaire Answer [...] things needed for daily living? No 03/06/2025 [place] Depression Scale Answer Date Recorded [place] Depression Scale Total 8 03/06/2025 The thought [...] GED or equivalent No 03/06/2025 Preferred Language Zimbabwean 03/06/2025 PHQ-2 Answer Date Recorded Patient Health [...] 03/06/2025 12:42 AM Chelsy Chan RN * [place] Suicide Severity Rating Scale (Screener/Recent Self-Report) Question [...] tablet Daily. 30 tablet 6 09/14/2024 03/08/2025 Calcium Carbonate Antacid (TUMS PO) Take by mouth. 03/08/2025 labetalol (NORMODYNE) 100 MG tablet Take 1 tablet by mouth 2 (Two) Times a Day. 60 tablet 8 01/01/2025 03/08/2025 Ondansetron (ZOFRAN ODT PO) Take by mouth. 03/08/2025 valACYclovir (VALTREX) 500 MG tablet Take 1 tablet by mouth Daily. 30 tablet 6 12/27/2024 10:36 AM EDT 12/27/2024 03/08/2025 documented as of this encounter Plan of Treatment Upcoming Encounters Date Type Department Care Team (Late st Contact Info) Description 04/17/2025 1:40 PM EDT Visit [facility] OBGYN [address] [place] [address] Aydin Crowe MD [address] [facility] [address] [place] [phone] documented as of this encounter Visit Diagnoses Not on filedocumented in this encounter Care Teams Cash Application Representative Relationship Specialty Start Date End Date Jefe Schwartz MD [facility] [address] [place] [address] PCP - General Adolescent Medicine 12/14/23 documented as of this encounter
--- OUTSIDE RECORDS SUMMARY | 2025-03-06 00:04 | XMS_ITS | Encounter Summary ---
Author Organization [facility] Address [address] [place] [address] Care Team Providers Care Aircraft Structural Design Engineer Name Role Phone Jefe Schwartz MD Primary Care Provider [phone] Reason for Visit * Reason Comments Scheduled Induction * Auth/Cert (Routine) Specialty Diagnoses / Procedures Referred By Contac t Referred To Contact Diagnoses Chronic hypertension in obstetric context, third trimester Referral ID Status Reason Start Date Expiration Date Visits Re quested Visits Authorized [id number] 1 1 Encounter Details Date Type Department Care Team (Late st Contact Info) Description 03/06/2025 12:04 AM EDT - 03/08/2025 10:40 AM EDT Hospital Encounter [facility] [address] [place] [address] Aydin Crowe MD [address] [facility] [address] [place] [address] Discharge Disposition: Home or Self Care Social History Tobacco Use Types Packs/Day Years Used Date Smoking Tobacco: Former Cigarettes Q uit: 01/2024 Passive Smoke Exposure: Past Smokeless Tobacco: Never Tobacco Cessation:Counseling Given: No Comments:Vape. Alcohol Use Standard Drinks/Week Comments Never 0 (1 standard drink = 0.6 oz pur e alcohol) [facility] Utilities Answer Date Recorded In the past 12 months has [employer] electric, gas, oil, or water company threatened [...] and heating? Not hard at all 03/06/2025 [facility] - Occupational Stress Questionnaire Answer Date Recorded [...] things needed for daily living? No 03/06/2025 [place] Depression Scale Answer Date Recorded [place] Depression Scale Total 8 03/06/2025 The thought [...] GED or equivalent No 03/06/2025 Preferred Language Armenian 03/06/2025 PHQ-2 Answer Date Recorded Patient Health [...] 03/06/2025 12:42 AM Chelsy Chan RN * [place] Suicide Severity Rating Scale (Screener/Recent Self-Report) Question [...] Date of Discharge: 03/08/2025 Patient: Lisa Trevino MR#:[id number] Delivery Provider: Aydin Crowe Attending Provider: Aydin [...] anemia: pt to continue accrufer upon discharge : male fetus 2930 g (6 lb 7.4 [...] mouth Daily. 30 tablet 11 07/25/2024 07/25/2025 documented as of this encounter Progress Notes * Kelly Patricia, DREDGE ENGINEER - 03/07/2025 10:20 AM EDT Images from [...] Crowe MD - 03/06/2025 5:48 AM EDT [facility] Vaginal Delivery Note Patient Name: Lisa [...] to the supine position. Infant Findings: male Infant observations: Weight: 2930 g (6 lb 7.4 oz) Length: 18.75 in Observations/Comments: Apgars: @ 1 minute / @ 5 minutes Name: Placenta & Cord Placenta delivered Spontaneous [...] EDT Subjective Patient without complaints. Her primary professor of oceanography has requested artificial rupture of membranes. Objective BP 115/56 (BP Location: Left arm, Patient Position: Lying) Pulse 87 Temp 98.3 ??F (36.8 ??C) (Oral) Resp 16 Ht 165.1 cm (65 ) Wt 124 kg (273 lb) LMP 05/24/2024 No BMI 45.43 kg/m?? General: No acute distress Lungs: No increased work of breathing Cervix: 6/80/-2 heart rate tracins, moderate variability, positive accelerations [place]: Contractions every 3 minutes Assessment and plan AROM-clear fluid Pitocin currently at 6 milliunits with plan to titrate up; RN having difficulty with adequate fetalheart rate tracing - IUPC and FSE placed. Continue current plan per primary professor of oceanography. Ryne Ramos MD 03/06/2025 04:11 EDT documented in this encounter H&P Notes * Aydin Crowe MD - 03/06/2025 12:01 AM EDT Images from the original note were not included. [place] Obstetric History and Physical Chief Complaint Patient presents with Scheduled Induction Subjective Patient is a 24 y.o. female currently at 37w0d, who presents with IOL 2/2 CHTN and previousIUGR (now improved), per [facility] recommendation. Her care is complicated by a [...] Range Date Time Amphetamine Screen Negative ng/mL Xatkoe=3571 08/17/24 1531 Barbiturate Screen Negative ng/mL Dhilou=205 08/17/24 1531 Benzodiazepine Screen Negative ng/mL Ytwyzx=467 08/17/24 1531 Methadone Screen Negative ng/mL Sccjus=112 08/17/24 1531 Phencyclidine Screen Negative ng/mL Cutoff=25 08/17/24 1531 Opiates Screen Negative ng/mL Fnsusm=476 08/17/24 1531 THC Screen Negative ng/mL Cutoff=20 08/17/24 1531 Cocaine Screen Negative ng/mL Ncurqq=538 08/17/24 1531 Propoxyphene Screen Negative ng/mL Dwopgr=854 08/17/24 1531 Buprenorphine Screen Methamphetamine Screen Oxycodone [...] at [address] Cordero in [place] Baseline PEP, 24 Hour urine, HGBA1C, TSH drawn at [facility] (29wk); not on medication No meds prior [...] Transfer of care @ 28 weeks from [place] unemployed. 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 Anemia 28 weeks hematocrit 29%.: on iron. PDC u/s 30 wk; EFW 57% Growth ultrasound 12/01 EFW 48%. AC 66%. Psoriatic arthritis [address] 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- dx at 16 [...] Uterine Resting Tone (mmHg) by IUPC: 20 [place] Units: Cervical Exam: Exam by: Method: sterile [...] Date of Referral 03/06/25 Person Making Referral sr technical sales consultant (courtesy visit; newly ) Maternal Reason for Referral other (see comments) (2nd time mother; 1st child did not latch, but mother pumped for 6 weeks; history of PCOS; independent; offered latch assistance, mother accepted) Reason for Referral 35-37 weeks gestation (encouraged pumping due to infant gestational age and due to history of PCOS to stimulate/encouragemilk production; CAREER TECHNOLOGY TEACHER following) Maternal Assessment Breast Size Issue none Breast Shape Bilateral:;round Breast Density Bilateral:;soft Nipples Bilateral:;everted;other (see comments) (medium sized nipples) Left Nipple Symptoms intact;nontender Right Nipple Symptoms intact;nontender Maternal Infant Feeding Maternal Emotional State independent;receptive Positioning clutch/football (left; infant not interested in latching even with arousal techniques, too sleepy) Comfort Measures Before/During Feeding latch adjusted; position adjusted;maternal position adjusted (to demonstrate deep latching and positioning) Latch Assistance verbal guidance offered;minimal assistance Support Person Involvement verbally supports mother Milk Expression/Equipment Breast Pump Type double electric, hospital grade;double electric, personal (Spectra; provided hospital pump due to gestational age and history of PCOS) Breast [...] utilized (mother began pumping; encouraged to provide infant any colostrum collected; showed how to syringe feed infant; mother had colostrum at bedside that pumped with manual, encouraged to provide ) Referrals Referrals outpatient program Outpatient Program Follow-up Date/Time as needed Courtesy visit; newly . Mother independent. Offered latch assistance and mother accepted.Prior to nursing, encouraged arousal techniques. FOB unswaddled infant and burped. Mother then placed infant in L football hold; not interested in latching, too sleepy. Demonstrated alignment and nipple to nose and infant chin to lower part of areola. Discussed deep latching and transfer of milk; encouraged every three hour feedings along with feeding cues. CAREER TECHNOLOGY TEACHER following. Provided hospital pump and mother began pumping. Had colostrum at bedside from manual pump and encouraged to provide any EBM collected. Provided syringes and how to syringe feedinfant. Provided tips. Encouraged pumping post feed due to history of PCOS and 's gestational age, to stimulate/encourage milk production. Mother verbalized understanding. To call PRN. documented in this encounter Plan of Treatment Upcoming Encounters Date Type Department Care Team (Late st Contact Info) Description 04/17/2025 1:40 PM EDT Visit [facility] OBGYN [address] [phone] Aydin Crowe MD [address] [address] documented as of this encounter Procedures Procedure [...] CBC (No Diff) (03/08/2025 5:27 AM EDT) [facility] WBC 11.01(H) 3.40 - 10.80 10*3/mm3 03/08/2025 6:04 AM EDT [facility] RBC 2.82(L) 3.77 - 5.28 10*6/mm3 03/08/2025 6:04 AM EDT [facility] Hemoglobin 7.2(L) 12.0 - 15.9 g/dL 03/08/2025 6:04 AM EDT [facility] Hematocrit 24.1(L) 34.0 - 46.6 % 03/08/2025 6:04 AM EDT [facility] MCV 85.5 79.0 - 97.0 fL 03/08/2025 6:04 AM EDT [facility] MCH 25.5(L) 26.6 - 33.0 pg 03/08/2025 6:04 AM EDT [facility] MCHC 29.9(L) 31.5 - 35.7 g/dL 03/08/2025 6:04 AM EDT [facility] RDW 15.5(H) 12.3 - 15.4 % 03/08/2025 6:04 AM EDT [facility] RDW-SD 47.4 37.0 - 54.0 fl 03/08/2025 6:04 AM EDT [facility] MPV 11.8 6.0 - 12.0 fL 03/08/2025 6:04 AM EDT [facility] Platelets 213 140 - 450 10*3/mm3 03/08/2025 6:04 AM EDT [facility] Blood Venipuncture / Unknown 03/08/2025 5:27 AM EDT 03/08/2025 5:55 AM EDT Kelly Patricia DREDGE ENGINEER LAB BLOOD ORDERABLES Final Result [facility]
[address] [place] [address], * (ABNORMAL) CBC Auto Differential (03/07/2025 5:07 AM EDT) WBC 9.80 3.40 - 10.80 10*3/mm3 03/07/2025 5:34 AM EDT [facility] RBC 2.90(L) 3.77 - 5.28 10*6/mm3 03/07/2025 5:34 AM EDT [facility] Hemoglobin 7.6(L) 12.0 - 15.9 g/dL 03/07/2025 5:34 AM EDT [facility] Hematocrit 24.7(L) 34.0 - 46.6 % 03/07/2025 5:34 AM EDT [facility] MCV 85.2 79.0 - 97.0 fL 03/07/2025 5:34 AM EDT [facility] MCH 26.2(L) 26.6 - 33.0 pg 03/07/2025 5:34 AM EDT [facility] MCHC 30.8(L) 31.5 - 35.7 g/dL 03/07/2025 5:34 AM [facility] RDW 15.0 12.3 - 15.4 % [facility] RDW-SD 46.5 37.0 - 54.0 fl 03/07/2025 5:34 AM [facility] MPV 11.9 6.0 - 12.0 fL 03/07/2025 5:[facility] Platelets 210 140 - 450 10*3/mm3 03/07/2025 5:34 AM [facility] Neutrophil % 67.5 42.7 - 76.0 % 03/07/2025 5:34 AM [facility] Lymphocyte % 21.3 19.6 - 45.3 % 03/07/2025 5:34 AM [facility] Monocyte % 5.8 5.0 - 12.0 % 03/07/2025 5:34 AM [facility] Eosinophil % 0.9 0.3 - 6.2 % 03/07/2025 5:34 AM [facility] Basophil % 0.4 0.0 - 1.5 % 03/07/2025 5:34 AM [facility] Immature Grans % 4.1(H) 0.0 - 0.5 % 03/07/2025 5:34 AM [facility] Neutrophils, Absolute 6.61 1.70 - 7.00 10*3/mm3 03/07/2025 5:[facility] Lymphocytes, Absolute 2.09 0.70 - 3.10 10*3/mm3 03/07/2025 5:34 [facility] Monocytes, Absolute 0.57 0.10 - 0.90 10*3/mm3 03/07/2025 5:34 [facility] Eosinophils, Absolute 0.09 0.00 - 0.40 10*3/mm3 03/07/2025 5:34 AM EDT [facility] Basophils, Absolute 0.04 0.00 - 0.20 10*3/mm3 03/07/2025 5:34 AM EDT [facility] Immature Grans, Absolute 0.40(H) 0.00 - 0.05 10*3/mm3 03/07/2025 5:34 AM EDT [facility] nRBC 0.3(H) 0.0 - 0.2 /100 WBC 03/07/2025 5:34 AM EDT [facility] Blood Venipuncture / Unknown 03/07/2025 5:07 AM EDT 03/07/2025 5:16 AM EDT Aydin Crowe MD LAB BLOOD ORDERABLES Final Resu lt [facility]
[address] [place] [address], * Tissue Pathology Exam (03/06/2025 5:50 AM EDT) Case Report Surgical Pathology Report Case: [id number] Authorizing Provider: Aydin Crowe MD Collected: 03/06/2025 05:50 AM Ordering Location: [facility] Received: 03/06/2025 06:11 AM LABOR DELIVERY Pathologist: Shilpa Rascon MD Specimen: Placenta, Placenta, 37 weeks IUGR, hypertension 03/07/2025 11:25 AM EDT [facility] Clinical Information 37 weeks, IUGR, hypertension 03/07/2025 11:25 AM EDT [facility] Final Diagnosis Placenta, vaginal delivery: Mature placental parenchyma with increased perivillous and subchorionic fibrin deposition Three-vessel umbilical cord 03/07/2025 11:25 AM EDT [facility] at 1125 EDT Gross Description 1. [...] spongy parenchyma with no gross lesions identified. [employer] sections are submitted as follows: 1A-umbilical cord with false knot and membrane roll 8M-cgca-tpbvptycf disc with subchorionic fibrin 8Q-umre-parvmmlqh disc at cord insertion site. LDP 03/07/2025 11:25 AM EDT [facility] Microscopic Description The slides are reviewed and demonstrate histopathologic features supporting the above rendered diagnosis. 03/07/2025 11:25 AM EDT [facility] Tissue Placental structure / Unknown Collection / Unknown 03/06/2025 5:50 AM EDT 03/06/2025 6:11 AM EDT Aydin Crowe MD PATHOLOGY/CYTOLOGY ORDERABLES F inal Result [facility]
[address] [place] [address], * (ABNORMAL) Protein / Creatinine Ratio, Urine - Urine, Clean Catch (03/06/2025 1:19 AM EDT) Protein/Creati nine Ratio, Urine 399.3(H) 0.0 - 200.0 mg/G Crea 03/06/2025 9:31 AM EDT [facility] Creatinine, Urine 108.2 mg/dL 03/06/2025 9:31 AM EDT [facility] Total Protein, Urine 43.2 mg/dL 03/06/2025 9:31 AM EDT [facility] Urine Urine specimen obtained by clean catch procedure / Unknown Collection / Unknown 03/06/2025 1:19 AM EDT 03/06/2025 1:19 AM EDT Aydin Crowe MD URINE ORDERABLES Final Result [facility]
[address] [place] [address], * (ABNORMAL) CBC (No Diff) (03/06/2025 1:14 AM EDT) WBC 11.53(H) 3.40 - 10.80 10*3/mm3 03/06/2025 1:20 AM EDT [facility] RBC 3.57(L) 3.77 - 5.28 10*6/mm3 03/06/2025 1:20 AM EDT [facility] Hemoglobin 9.0(L) 12.0 - 15.9 g/dL 03/06/2025 1:20 AM EDT [facility] Hematocrit 29.6(L) 34.0 - 46.6 % 03/06/2025 1:20 AM EDT [facility] MCV 82.9 79.0 - 97.0 fL 03/06/2025 1:20 AM EDT [facility] MCH 25.2(L) 26.6 - 33.0 pg 03/06/2025 1:20 AM EDT [facility] MCHC 30.4(L) 31.5 - 35.7 g/dL 03/06/2025 1:20 AM EDT [facility] RDW 15.2 12.3 - 15.4 % 03/06/2025 1:20 AM EDT [facility] RDW-SD 46.0 37.0 - 54.0 fl 03/06/2025 1:20 AM EDT [facility] MPV 11.7 6.0 - 12.0 fL 03/06/2025 1:20 AM EDT [facility] Platelets 269 140 - 450 10*3/mm3 03/06/2025 1:20 AM EDT [facility] Blood Venipuncture / Unknown 03/06/2025 1:14 AM EDT 03/06/2025 1:14 AM EDT us Aydin Crowe MD LAB BLOOD ORDERABLES Final Resu lt Performing Organization Address [facility] Co de Phone Number [facility]
[address] [place] [address], * (ABNORMAL) Ferritin (03/06/2025 1:11 AM EDT) Ferritin 7.88(L) 13.00 - 150.00 ng/mL 03/06/2025 6:36 AM EDT [facility] Blood Venipuncture / Unknown 03/06/2025 1:11 AM EDT 03/06/2025 2:53 AM EDT Narrative [facility] - 03/06/2025 6:36 AM EDT Results may be falsely decreased if patient taking Biotin. us Aydin Crowe MD LAB BLOOD ORDERABLES Final Resu lt Performing Organization Address [facility] de Phone Number [facility]
[address] [place] [address], * (ABNORMAL) Iron Profile w/o Ferritin (03/06/2025 1:11 AM EDT) Iron 54 37 - 145 mcg/dL 03/06/2025 6:36 AM EDT [facility] Iron Saturation (TSAT) 8(L) 20 - 50 % 03/06/2025 6:36 AM EDT [facility] Transferrin 482(H) 200 - 360 mg/dL 03/06/2025 6:36 AM EDT [facility] TIBC 718(H) 298 - 536 mcg/dL 03/06/2025 6:36 AM EDT [facility] Blood Venipuncture / Unknown 03/06/2025 1:11 AM EDT 03/06/2025 2:53 AM EDT Aydin Crowe MD LAB BLOOD ORDERABLES Final Resu lt [facility]
[address] [place] [address], * (ABNORMAL) Comprehensive Metabolic Panel (03/06/2025 1:11 AM EDT) Pathologist [facility] Glucose 84 65 - 99 mg/dL 03/06/2025 3:12 AM EDT [facility] BUN 8.9 6.0 - 20.0 mg/dL 03/06/2025 3:12 AM EDT [facility] Creatinine 0.87 0.57 - 1.00 mg/dL 03/06/2025 3:12 AM EDT [facility] Sodium 137 136 - 145 mmol/L 03/06/2025 3:12 AM EDT [facility] Potassium 4.0 3.5 - 5.2 mmol/L 03/06/2025 3:12 AM EDT [facility] Chloride 106 98 - 107 mmol/L 03/06/2025 3:12 AM EDT [facility] CO2 18.4(L) 22.0 - 29.0 mmol/L 03/06/2025 3:12 AM EDT [facility] Calcium 8.7 8.6 - 10.5 mg/dL 03/06/2025 3:12 AM EDT [facility] Total Protein 6.3 6.0 - 8.5 g/dL 03/06/2025 3:12 AM EDT [facility] Albumin 3.4(L) 3.5 - 5.2 g/dL 03/06/2025 3:12 AM EDT [facility] ALT (SGPT) 22 1 - 33 U/L 03/06/2025 3:12 AM EDT [facility] AST (SGOT) 16 1 - 32 U/L 03/06/2025 3:12 AM EDT [facility] Alkaline Phosphatase 113 39 - 117 U/L 03/06/2025 3:12 AM EDT [facility] Total Bilirubin 0.7 0.0 - 1.2 mg/dL 03/06/2025 3:12 AM EDT [facility] Globulin 2.9 gm/dL 03/06/2025 3:12 AM EDT [facility] Comment:Calculated Result A/G Ratio 1.2 g/dL 03/06/2025 3:12 AM EDT [facility] BUN/Creatinine Ratio 10.2 7.0 - 25.0 03/06/2025 3:12 AM EDT [facility] Anion Gap 12.6 5.0 - 15.0 mmol/L 03/06/2025 3:12 AM EDT [facility] eGFR 95.6 >60.0 mL/min/1.7 3 03/06/2025 3:12 AM EDT [facility] Blood Venipuncture / Unknown 03/06/2025 1:11 AM EDT 03/06/2025 2:53 AM EDT [facility] - 03/06/2025 3:12 AM EDT [...] MD LAB BLOOD ORDERABLES Final Resu lt [facility]
[address] [place] [address], * (ABNORMAL) Uric Acid (03/06/2025 1:11 AM EDT) Pathologist [facility] Uric Acid 6.6(H) 2.4 - 5.7 mg/dL 03/06/2025 3:12 AM EDT [facility] Comment:Falsely depressed re sults may occur on samples drawn from patients receiving N-Acetylcysteine (NAC) or Metamizole. Blood Venipuncture / Unknown 03/06/2025 1:11 AM EDT 03/06/2025 2:53 AM EDT us Aydin Crowe MD LAB BLOOD ORDERABLES Final Resu lt Performing Organization Address [facility]/ZIP Co de Phone Number [facility]
[address] [place] [address], * Lactate Dehydrogenase (03/06/2025 1:11 AM EDT) [facility] LDH 187 135 - 214 U/L 03/06/2025 3:12 AM EDT [facility] Blood Venipuncture / Unknown 03/06/2025 1:11 AM EDT 03/06/2025 2:53 AM EDT Aydin Crowe MD LAB BLOOD ORDERABLES Final Resu lt Performing Organization Address [facility] Co de Phone Number [facility]
[address] [place] [address], * Treponema pallidum AB w/Reflex RPR (03/06/2025 1:11 AM EDT) [facility] Treponemal AB Total Non-Reacti ve Non-React ramya 03/06/2025 1:42 PM EDT [facility] Blood Venipuncture / Unknown 03/06/2025 1:11 AM EDT 03/06/2025 1:11 AM EDT Narrative [facility] - 03/06/2025 1:42 PM EDT Reactive results will reflex RPR testing. us Aydin Crowe MD LAB BLOOD ORDERABLES Final Resu lt Performing Organization Address City/[facility]/ZIP Co de Phone Number [facility]
[address] [place] [id number], * Type & Screen (03/06/2025 1:03 AM EDT) ABO Type A 03/06/2025 1:37 AM EDT [facility] RH type Positive 03/06/2025 1:37 AM EDT [facility] Antibody Screen Negative 03/06/2025 1:37 AM EDT [facility] T&S Expiration Date 03/09/2025 11:59:59 PM 03/06/2025 1:37 AM EDT [facility] Blood Venipuncture / Unknown 03/06/2025 1:03 AM EDT 03/06/2025 1:03 AM EDT us Aydin Crowe MD BLOOD BANK TEST ORDERABLES Edit ed Result - Final Performing Organization Address [facility] Co de Phone Number [facility]
[address] [place] [address], documented in this encounter Visit Diagnoses Diagnosis [...] at 0756, For 1 dose, Group 2 ([place]) Hazardous Drug - Reproductive Risk Only - See Handling Guide miSOPROStol (CYTOTEC) tablet 800 mcg 800 mcg, Rectal, Once As Needed, Hemorrhage, Starting on Thu03/06/25 at 0756, For 1 dose, Group 2 ([place]) Hazardous Drug - Reproductive Risk Only - [...] medication prescribed for a lower pain scale. (RAJNANA) If given for pain, use the following [...] restarted at the initial dose. Group 2 ([place]) Hazardous Drug - Reproductive Risk Only - [...] that bag to avoid waste. Group 2 ([place]) Hazardous Drug - Reproductive Risk Only - [...] restarted at the initial dose. Group 2 ([place]) Hazardous Drug - Reproductive Risk Only - [...] Aminah Paz RN)1433 (Given - Provider: Jennifer King, RN)2017 (Given - Provider: Reba Mcpherson, SUKUMAR) [...] at 0756, For 1 dose, Group 2 ([place]) Hazardous Drug - Reproductive Risk Only - See Handling Guide miSOPROStol (CYTOTEC) tablet 800 mcg 800 mcg, Rectal, Once As Needed, Hemorrhage, Starting on Thu03/06/25 at 0756, For 1 dose, Group 2 ([place]) Hazardous Drug - Reproductive Risk Only - [...] an additional bag (2 total). Group 2 ([place]) Hazardous Drug - Reproductive Risk Only - [...] that bag to avoid waste. Group 2 ([place]) Hazardous Drug - Reproductive Risk Only - See Handling Guide Followed by oxytocin (PITOCIN) 30 units in 0.9% sodium chloride 500 mL (premix) () 250 mL/hr, Intravenous, Continuous, Starting on Thu03/06/25 at 0900, For 1 hour, Infuse at 250 ml/hr for remaining volume in bag. Group 2 ([place]) Hazardous Drug - Reproductive Risk Only - [...] 5-8 documented in this encounter Care Teams Aircraft Structural Design Engineer Relationship Specialty Start Date End Date Jefe Schwartz MD [address] [facility] [address] [place] [address] PCP - General Adolescent Medicine 12/14/23 documented as of this encounter
--- OUTSIDE RECORDS SUMMARY | 2025-03-06 05:06 | XMS_ITS | Encounter Summary ---
Author Organization [facility] Address [address] [place] [id number] Care Team Providers Care Precision Agriculture Specialist Name Role Phone Jefe Schwartz MD Primary Care Provider [phone] Reason for Visit * Auth/Cert (Routine) Specialty Diagnoses / Procedures Referred By Contac t Referred To Contact Diagnoses Chronic hypertension in obstetric context, third trimester Referral ID Status Reason Start Date Expiration Date Visits Re quested Visits Authorized [id number] 1 1 Encounter Details Date Type Department Care Team (Late st Contact Info) Description 03/06/2025 5:06 AM EDT Anesthesia Event [facility] LABOR DELIVERY [address] [facility] [address] Mami Balbuena MD 6425 [facility] [address] [place] [address] Anesthesia Record Procedure Summary Procedure Name Responsible [...] Recorded In the past 12 months has [employer], gas, oil, or water [employer] threatened to shut off services in your [...] and heating? Not hard at all 03/06/2025 [facility] [place] of Occupat ional Health - Occupational Stress [...] things needed for daily living? No 03/06/2025 [place] Depression Scale Answer Date Recorded [place] Depression Scale Total 8 03/06/2025 The thought [...] GED or equivalent No 03/06/2025 Preferred Language Sinhala 03/06/2025 PHQ-2 Answer Date Recorded Patient Health [...] 03/06/2025 12:42 AM Chelsy Chan RN * [place] Suicide Severity Rating Scale (Screener/Recent Self-Report) Question [...] evaluation and timeout performed Prep: Pt Position:sitting Retail Account Manager:cap, gloves, sterile barrier, mask and gown Prep:chlorhexidine [...] sounds: normal. 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 ROS ROS/Med Hx [...] Info) Description 04/17/2025 1:40 PM EDT Visit [facility] O[facility]YN [address] [facility] [address] [place] [phone] Aydin Crowe MD 1700 [facility] [address] [place] [address] documented as of this encounter Procedures Procedure [...] evaluation and timeout performed Prep: Pt Position:sitting Retail Account Manager:cap, gloves, sterile barrier, mask and gown Prep:chlorhexidine [...] Rate Site Lidocaine-EPINEPHrine (PF) (XYLOCAINE W/EPI) 1.5 %-1:355571 injection Epidural, As Needed, Starting on Thu03/06/25 at 0519 Given 03/06/2025 5:19 AM EDT 3 mL ropivacaine (NAROPIN) 0.5 % 5 mL in sodium chloride 0.9 % 5 mL epidural Epidural, Continuous PRN, Starting on Thu03/06/25 at 0523 Bolus 03/06/2025 5:25 AM EDT 5 mL New Bag 03/06/2025 5:23 AM EDT 5 mL documented in this encounter Care Teams Precision Agriculture Specialist Relationship Specialty Start Date End Date Jefe Schwartz MD 1210 [facility] [address] [facility] [address] [place] [address] PCP - General Adolescent Medicine 12/14/23 documented as of this encounter
--- OUTSIDE RECORDS SUMMARY | 2025-04-17 08:53 | XMS_ITS | Clinical Summary ---
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
--- OUTSIDE RECORDS SUMMARY | 2025-04-17 08:54 | XMS_ITS | Encounter Summary ---
Author Organization [employer] ([place], [place], [place], [place]) Address [address] [place] [address] Care Team Providers Care Machine Clothing Worker Name Role Phone Unavailable Primary Care Provider Unavailabl e Encounter Details Date Type Department Care Team (Late st Contact Info) Description 10/15/2018 Transcribed Document [facility] [place] [address] [place] [address] ProviderFeroz MD [address] [place] [address] Social History Tobacco Use Types Packs/Day [...] Feroz Richter MD - 10/15/2018 4:48 PM CREDIT CONTROLLER [address] , [place] [address] Patient Copy Patient Information: Name: SARBJIT RILEY Current Date: 10/15/2018 16:48:56 : 2000 Patient Address: [place] [address] Patient Attending Physician: Primary Care Provider: SHANI LUDWIG MD Primary Care Provider Discharge Diagnosis: Weight on Admission: 228 lb, 0 oz Comment: Follow-up Instructions: With: Address: When: BELA MARQUES [address] [place] [address] Business (1) Within 2 weeks [...] Document Reviewed: 08/29/2011 ExitCare? Patient Information ?2014 [email or web address]. Moderate Conscious Sedation, Adult, Care After These [...] you are awake and alert. ??? Take idvk-lcc-dafzoim and prescription medicines only as told by [...] 11/15/2016 Elsevier Interactive Patient Education ? 2017 [employer] Cardiac Ablation Cardiac ablation is a procedure to stop some heart tissue from causing problems. The heart has many electrical connections. Sometimes these connections cause the heart to beat very fast or irregularly. Removing some of the problem areas can improve heart rhythm or make it normal. Ablation is done for people who: ??? Have Whwuc-Cyuurempi-Vadji syndrome. ??? Have other fast heart rhythms [...] 12/22/2013 Elsevier Interactive Patient Education ? 2017 [employer] CIGARETTE SMOKING: The facts are clear, cigarette smoking will shorten your life. Smoking can cause many illnesses along the way. As a healthcare provider, we recommend that you stop smoking. Assistance with quitting is available by contacting 7-566-PSSJ-NOW. This is a free resource providing counseling, [...] Be sure to sign up for the [employer] patient portal, which gives you 02/03 access to your medical information ??? including these discharge instructions ??? using your computer, smartphone, or tablet. Just go to [employer] to get started. Questions? Call . [facility] would like to thank you for allowing us to assist you with your healthcare needs. I, OSVALDO, SARBJIT DARYL AVTAR, (or publications sales representative) have received the above patient education materials/instructions and have verbalized understanding: Patient Signature _ Date/Time Patient Geography Head Signature (if needed) Date/Time Clinician/Hospital Geography Head Signature (if needed) Date/Time documented in this encounter Plan of Treatment Not on file documented as of this encounter Visit Diagnoses Not on filedocumented in this encounter
--- OUTSIDE RECORDS SUMMARY | 2025-04-17 08:54 | XMS_ITS | Encounter Summary ---
Author Organization [employer] ([place], [place], [place], [place]) Address [address] [place] [address] Care Team Providers Care Activity Leader Name Role Phone Unavailable Primary Care Provider Unavailabl e Encounter Details Date Type Department Care Team (Late st Contact Info) Description 10/15/2018 Transcribed Document [facility] [place] [address] [place] [address] ProviderFeroz MD [address] [place], [place] [address] Social History Tobacco Use Types Packs/Day Years [...] - Historical ProviderMD - 10/15/2018 7:45 AM PRESIDENT Event Note Entered On: 10/15/2018 7:46 EST [...]
--- OUTSIDE RECORDS SUMMARY | 2025-04-17 08:54 | XMS_ITS | Encounter Summary ---
Author Organization [employer] ([place], [place], [place], [place]) Address [address] [place] [address] Care Team Providers Care Resident Program Specialist Name Role Phone Unavailable Primary Care Provider Unavailabl e Encounter Details Date Type Department Care Team (Late st Contact Info) Description 10/15/2018 Transcribed Document [facility] [place] [facility] [address] [place] [address] ProviderFeroz MD [facility] [place], [place] [address] Social History Tobacco Use Types Packs/Day Years [...] Feroz Richter MD - 10/15/2018 10:25 AM TRASH HAULER DATE OF STUDY: 10/15/2018 ELECTROPHYSIOLOGY REPORT PREOPERATIVE DIAGNOSIS: Vachw-Legigxcny-Rexyx with recurrent symptomatic tachycardia. PROCEDURE PERFORMED: Comprehensive [...] infiltrated 1% with 1% lidocaine locally. Two 6-Citizen Of [place] and two 7-Citizen [place] sheaths were placed in the left femoral vein. A 5-Citizen [place] sheath was placed in the left femoral artery. A 5-Citizen [place] pigtail catheter was placed to level aortic valve plane for continuous arterial pressure monitoring to assist with transseptal cardiac catheterization. A 7-Citizen [place] Decapolar catheter was placed in the coronary sinus. A 6-Citizen [place] Quadripolar catheters were placed to high right [...] through the right femoral vein, a long 9-Citizen [place] sheath and 11-Citizen [place] sheath were introduced. A Biosense Rosas intracardiac [...] was measured and recorded. Next, using a BiosSphere[employer] Rosas STF Curve irrigated ablation catheter in [...]
--- OUTSIDE RECORDS SUMMARY | 2025-04-17 08:54 | XMS_ITS | Encounter Summary ---
Author Organization [employer] ([place], [place], [place], [place]) Address [address] [place] [address] Care Team Providers Care Software Test Specialist Name Role Phone Unavailable Primary Care Provider Unavailabl e Encounter Details Date Type Department Care Team (Late st Contact Info) Description 10/15/2018 Transcribed Document [facility] [place] [address] [place] [address] ProviderFeroz MD [address] [place], [place] [address] Social History Tobacco Use Types Packs/Day Years [...] - Historical ProviderMD - 10/15/2018 2:25 PM HOME HEALTH CARE CASE MANAGER Event Note Entered On: 10/15/2018 14:25 EST [...]
--- OUTSIDE RECORDS SUMMARY | 2025-04-17 08:54 | XMS_ITS | Encounter Summary ---
Author Organization [employer] ([place], [place], [place], [place]) Address [address] [place] [address] Care Team Providers Care Transmission And Protection Engineer Name Role Phone Unavailable Primary Care Provider Unavailabl e Encounter Details Date Type Department Care Team (Late st Contact Info) Description 10/15/2018 Transcribed Document [facility] [place] Family Medicine [address] [place] [address] ProviderFeroz MD [address] [place], [place] [address] Social History Tobacco Use Types Packs/Day Years [...] - Feroz ProviderMD - 10/15/2018 4:42 PM RHYTHMIC GYMNASTICS COACH Nursing Discharge Summary Entered On: 10/15/2018 16:43 [...] 10/15/2018 16:42 EST Electronically signed by Kateryna [facility] Conversion Communication Lecturer Cerner at 11/25/2022 5:03 PM CDT documented in this encounter Plan of Treatment Not on file documented as of this encounter Visit Diagnoses Not on filedocumented in this encounter
--- OUTSIDE RECORDS SUMMARY | 2025-04-17 08:54 | XMS_ITS | Encounter Summary ---
[facility] Organization [facility] Address [address] [place] [address] Care Team Providers Care Business Office Technology Instructor Name Role Phone Jefe Schwartz MD Primary Care Provider [phone] Encounter Details Date Type Department Care Team (Late st Contact Info) Description 12/15/2024 Results Follow-Up [facility] OBGYN [address] [facility] [address] [place] [phone] Izaiah Mcdaniels MD [address] [facility] [address] [place] [address] Social History Tobacco Use Types Packs/Day Years Used Date Smoking Tobacco: Former Cigarettes Q uit: 01/2024 Smokeless Tobacco: Never Comments:Vape. Alcohol Use Standard Drinks/Week Comments Never 0 (1 standard drink = 0.6 oz pur e alcohol) [facility] Utilities Answer Date Recorded In the past 12 months has [employer], gas, oil, or water [employer] threatened to shut off services in your [...] and heating? Not hard at all 12/12/2023 [facility] - Occupational [...] things needed for daily living? No 12/12/2023 [place] Depression Scale Answer Date Recorded Retired [place] Depression Score 11 02/23/2024 Retired EPD Scale: [...] GED or equivalent No 12/12/2023 Preferred Language Palestinian 12/12/2023 PHQ-2 Answer Date Recorded Retired PHQ-9: [...] Info) Description 04/17/2025 1:40 PM EDT Visit [facility] OBGYN [address] [place] [address] Aydin Crowe MD [address] [place] [address] documented as of this encounter Visit Diagnoses Not on filedocumented in this encounter Care Teams Business Office Technology Instructor Relationship Specialty Start Date End Date Jefe Schwartz MD [address] [place] [facility] [address] [place] [address] PCP - General Adolescent Medicine 12/14/23 documented as of this encounter
--- OUTSIDE RECORDS SUMMARY | 2025-04-17 08:54 | XMS_ITS | Encounter Summary ---
Author Organization [employer] ([place], [place], [place], [place]) Address [address] [place] [address] Care Team Providers Care Color Sprayer Name Role Phone Unavailable Primary Care Provider Unavailabl e Encounter Details Date Type Department Care Team (Late st Contact Info) Description 10/15/2018 Transcribed Document [facility] [place] [address] [place] [address] ProviderFeroz MD [facility] [place], [place] [address] Social History Tobacco Use Types Packs/Day Years [...] - Feroz ProviderMD - 10/15/2018 4:49 PM WOOL AND PELT GRADER Patient Education Materials Follows: Groin Site Care [...] Document Reviewed: 08/29/2011 ExitCare? Patient Information ?2014 [email or web address]. Pharmacology Moderate Conscious Sedation, Adult, Care After [...] you are awake and alert. ??? Take mdid-uqz-drtobkz and prescription medicines only as told by [...] 05/17/2014 Document Revised: 12/29/2016 Document Reviewed: 11/15/2016 BarkBox Interactive Patient Education ? 2017 [employer] Inc. Procedures Cardiac Ablation Cardiac ablation is a procedure to stop some heart tissue from causing problems. The heart has many electrical connections. Sometimes these connections cause the heart to beat very fast or irregularly. Removing some of the problem areas can improve heart rhythm or make it normal. Ablation is done for people who: ??? Have Gjmyn-Uabnqaivc-Bqmbq syndrome. ??? Have other fast heart rhythms [...] 12/22/2013 Elsevier Interactive Patient Education ? 2017 [employer]. documented in this encounter Plan of Treatment Not on file documented as of this encounter Visit Diagnoses Not on filedocumented in this encounter
--- OUTSIDE RECORDS SUMMARY | 2025-04-17 08:54 | XMS_ITS | Encounter Summary ---
Author Organization [employer] ([place], [place], [place], [place]) Address [address] [place] [address] Care Team Providers Care Draw Frame Tender Name Role Phone Unavailable Primary Care Provider Unavailabl e Encounter Details Date Type Department Care Team (Late st Contact Info) Description 10/15/2018 Transcribed Document [facility] [place] [address] [place] [address] ProviderFeroz MD [address] [place], [place] [address] Social History Tobacco Use Types Packs/Day Years [...] - Feroz ProviderMD - 10/15/2018 4:44 PM IMPLANT COORDINATOR Discharge Instructions Entered On: 10/15/2018 16:45 EST [...] 10/15/2018 16:47 EST Electronically signed by Kateryna, [facility] Conversion Core Sucker Cerner at 11/25/2022 5:17 PM CDT documented in this encounter Plan of Treatment Not on file documented as of this encounter Visit Diagnoses Not on filedocumented in this encounter
--- OUTSIDE RECORDS SUMMARY | 2025-04-17 08:54 | XMS_ITS | Encounter Summary ---
Author Organization [facility] Address [address] [place] [address] Care Team Providers Care Technical Support Intern Name Role Phone Jefe Schwartz MD Primary Care Provider [phone] Encounter Details Date Type Department Care Team (Late st Contact Info) Description 12/26/2024 Results Follow-Up [facility] OBGYN [address] [facility] [address] [place] [phone] Kelly Patricia, RN [facility] [address] [facility] [address] [place] [address] Social History Tobacco Use Types Packs/Day Years Used Date Smoking Tobacco: Former Cigarettes Q uit: 01/2024 Smokeless Tobacco: Never Comments:Vape. Alcohol Use Standard Drinks/Week Comments Never 0 (1 standard drink = 0.6 oz pur e alcohol) [facility] Utilities Answer Date Recorded In the past 12 months has [employer], gas, oil, or water [employer] threatened to shut off services in your [...] and heating? Not hard at all 12/30/2024 [facility] - Occupational Stress Questionnaire Answer [...] things needed for daily living? No 12/30/2024 [place] Depression Scale Answer Date Recorded Retired [place] Depression Score 11 02/23/2024 Retired EPD Scale: [...] GED or equivalent No 12/30/2024 Preferred Language Cambodian 12/30/2024 PHQ-2 Answer Date Recorded Patient Health [...] Info) Description 04/17/2025 1:40 PM EDT Visit [facility] OBGYN [address] [facility] [address] [place] [address] Aydin Crowe MD [address] [facility] [address] [place] [address] documented as of this encounter Visit Diagnoses Not on filedocumented in this encounter Care Teams Technical Support Intern Relationship Specialty Start Date End Date Jefe Schwartz MD [address] [facility] [address] [place] [address] PCP - General Adolescent Medicine 12/14/23 documented as of this encounter
--- OUTSIDE RECORDS SUMMARY | 2025-04-17 08:54 | XMS_ITS | Clinical Summary ---
Author Organization Healthcare Address [address] [place] [address] Care Team Providers Care Mercury Recoverer Name Role Phone System, Provider Not In [...] Description 02/13/2025 Community Orders Community Practice [address] [place] [address] Izaiah Mcdaniels MD Proteinuria complicating , unspecified trimester (Primary Dx) from Last 3 Months Family History Medical [...] Description 06/30/2025 1:20 PM EST Office Visit [facility] [address] [place] [address] Duke White MD [address] [place] [phone] Health Maintenance Due Date Last Done Comments [facility]-Infant/Child/Adol SDOH Screenings 2000 [facility]-Varicella Vaccines (2 of 2 - 2-dose childhood series) 06/09/2005 03/17/2005 HPV Vaccines (1 - 3-dose series) 2015 [facility]- SDOH Screenings 2018 [facility]-Adult SDOH Screenings 2018 [facility]-MGMQH-45 Vaccine ( season) 2024 05/22/2021, 09/12/2020, 08/22/2020 [facility]-Influenza Vaccine [...] Reactive Non Reactive 10/06/2024 6:03 PM EST [facility] Comment:Screening for HIV 1 & 2 antibodies, and P24 antigen is NONREACTIVE. No confirmatory testing is required. Blood Venous blood specimen / Unknown Venipuncture / Unknown 10/06/2024 3:25 PM EST 10/06/2024 3:25 PM EST Aston Meyer MD LAB BLOOD ORDERABLES Final Resul t Performing Organization Address City/[facility] Co de Phone Number [facility] [address] [place] [address] * Acute Hepatitis Panel (10/06/2024 3:25 PM EST) Hepatitis B Surf Antigen Negative Negative 10/06/2024 7:03 PM EST [facility] Hepatitis C Antibody Negative Negative 10/06/2024 7:03 PM EST [facility] Hepatitis A Antibody IgM Negative Negative 10/06/2024 7:03 PM EST [facility] Hepatitis B Core Antibody IgM Negative Negative 10/06/2024 7:03 PM EST [facility] Blood Venous blood specimen / Unknown Venipuncture / Unknown 10/06/2024 3:25 PM EST 10/06/2024 3:25 PM EST Aston Meyer MD LAB BLOOD ORDERABLES Final Resul t Performing Organization Address [facility] Phone Number [facility] [address] [place] [address] from Last 3 Months or Most Recently Relevant to Health Maintenance Insurance [employer] [facility] MEDICAID CIGNA Care Teams Mercury Recoverer Relationship Specialty Start Date End Date System, Provider Not In, [place] [address] PCP - General Family Medicine 09/29/24
--- OUTSIDE RECORDS SUMMARY | 2025-04-17 08:54 | XMS_ITS | Encounter Summary ---
Author Organization [employer] ([place], [place], [place], [place]) Address [address] [place] [address] Care Team Providers Care Air Carrier Maintenance Inspector Name Role Phone Unavailable Primary Care Provider Unavailabl e Encounter Details Date Type Department Care Team (Late st Contact Info) Description 10/15/2018 Transcribed Document [facility] [place] Family Medicine [address] [place] [address] ProviderFeroz MD [address] [place], [place] [address] Social History Tobacco Use Types Packs/Day Years [...] - Feroz ProviderMD - 10/15/2018 7:32 AM ROUGHENER Pre Procedure Adult Entered On: 10/15/2018 7:38 EST Performed On: 10/15/2018 7:32 EST by DILMA WHELAN RN Height and Weight, Clinical Dosing Height Source : Stated Height Entry Format : Bollinger Height, Feet : 0 ft(Converted to: 0 cm, 0 Inch) Height, Inches : 65 Inch(Converted to: 5 ft 5 Inch, 165.10 cm) Clinical Height : 165.1 cm Weight Source : Standing scale Weight Entry Format : Bollinger Clinical Dosing Weight : 103.64 kg Weight, Pounds : 228 lb Body Surface Area (BSA) : 2.09 m2 Body Mass Index : 38 kg/m2 (HI) Encampment Body Weight : 57 kg DILMA WHELAN [...] Emergency Contact #1 : Aravind kohler - [phone] Emergency Contact #1 Phone Number : - Emergency Contact #1 Relationship : - Emergency Contact #2 : - Emergency Contact #2 Phone Number : - Emergency Contact #2 Relationship : - Primary Language : Belizean Communication Barrier : None DILMA WHELAN RN [...] Scale Risk Level : 0-24 Low Risk [place] Fall Interventions : Wheels locked DILMA WHELAN [...] EST Pain Scale Intensity : 0 DILMA WHLEAN RN - 10/15/2018 7:32 EST Image 4 - Images currently included in the form version of this document have not been included in the text rendition version of the form. documented in this encounter Plan of Treatment Not on file documented as of this encounter Visit Diagnoses Not on filedocumented in this encounter
--- OUTSIDE RECORDS SUMMARY | 2025-04-17 08:54 | XMS_ITS | Encounter Summary ---
Author Organization [employer] ([place], [place], [place], [place]) Address [address] [place] [address] Care Team Providers Care Moisture Meter Operator Name Role Phone Unavailable Primary Care Provider Unavailabl e Encounter Details Date Type Department Care Team (Late st Contact Info) Description 10/15/2018 Transcribed Document [facility] [address] [place] [address] ProviderFeroz MD [address] [place] [id number] Social History Tobacco Use Types Packs/Day [...] Feroz Richter MD - 10/15/2018 4:46 PM GRINDING OPERATOR [address] , [place] [address] Patient Copy Patient Information: Name: SARBJIT RILEY Current Date: 10/15/2018 16:46:09 : 2000 Patient Address: [place] [address] Patient Attending Physician: Primary Care Provider: SHANI LUDWIG MD Primary Care Provider Discharge Diagnosis: Weight on Admission: 228 lb, 0 oz Comment: Follow-up Instructions: With: Address: When: BELA MARQUES [address] [place] [address] Business (1) Within 2 weeks [...] Document Reviewed: 08/29/2011 ExitCare? Patient Information ?2014 [employer]. Moderate Conscious Sedation, Adult, Care After These [...] you are awake and alert. ??? Take uyis-jsl-bhydcla and prescription medicines only as told by [...] 05/17/2014 Document Revised: 12/29/2016 Document Reviewed: 11/15/2016 [employer] Interactive Patient Education ? 2017 [employer] Cardiac Ablation Cardiac ablation is a procedure to stop some heart tissue from causing problems. The heart has many electrical connections. Sometimes these connections cause the heart to beat very fast or irregularly. Removing some of the problem areas can improve heart rhythm or make it normal. Ablation is done for people who: ??? Have Yjnnu-Nvaeveenq-Lvqdi syndrome. ??? Have other fast heart rhythms [...] 03/29/2014 Document Revised: 01/01/2017 Document Reviewed: 12/22/2013 [employer] Interactive Patient Education ? 2017 [employer] CIGARETTE SMOKING: The facts are clear, cigarette smoking will shorten your life. Smoking can cause many illnesses along the way. As a healthcare provider, we recommend that you stop smoking. Assistance with quitting is available by contacting 9-738-BORR-NOW. This is a free resource providing counseling, [...] Be sure to sign up for the Victoria Plumb patient portal, which gives you 02/03 access to your medical information ??? including these discharge instructions ??? using your computer, smartphone, or tablet. Just go to [employer] to get started. Questions? Call . [facility] would like to thank you for allowing us to assist you with your healthcare needs. OSVALDO Nunes MADISON EVELYN ROSE, (or off premise service representative) have received the above patient education materials/instructions and have verbalized understanding: Patient Signature _ Date/Time Patient Category Consultant Signature (if needed) Date/Time Clinician/Hospital Category Consultant Signature (if needed) Date/Time Electronically signed by [facility], [facility] Conversion Chemical Engineering Teacher Hitesh at 11/25/2022 5:12 PM CDT documented in this encounter Plan of Treatment Not on file documented as of this encounter Visit Diagnoses Not on filedocumented in this encounter
--- OUTSIDE RECORDS SUMMARY | 2025-04-17 08:54 | XMS_ITS | Encounter Summary ---
Author Organization Healthcare Address [address] [place] [address] Care Team Providers Care Underground Utility Locator Name Role Phone System, Provider Not In MD Primary Care Provider Unavailable Reason for Referral * Consultation (Routine) - Authorized Specialty Diagnoses / Procedures Referred By Jeanne roberts Referred To Contact Nephrology Diagnoses Proteinuria complicating , unspecified trimester Izaiah Mcdaniels MD [address] [place] [facility] [address] [place] [address] Phone: tel: fax: [facility] Nephrology, Bone & Mineral Metabolism [address] [facility], [address] [place] [address] Phone: tel: fax: Referral ID Status Reason Start Date Expiration Date Visits Requested Visits Authorized [id number] Authorized Specialty Services Required 02/13/2025 08/15/2026 1 1 Encounter Details Date Type Department Care Team (Late st Contact Info) Description 02/13/2025 Community Orders Community Practice [address] [place] [address] Izaiah Mcdaniels MD [address] [place] [address] Proteinuria complicating , unspecified trimester (Primary Dx) [...] Description 06/30/2025 1:20 PM EST Office Visit [facility] [address] [place] [address] Duke White MD [address] [place] [phone] Scheduled Referrals Name Type Priority Associated Diagnoses [...] documented as of this encounter Care Teams Underground Utility Locator Relationship Specialty Start Date End Date System, Provider Not In, [address] [place] [address] PCP - General Family Medicine 09/29/24 documented as of this encounter
--- OUTSIDE RECORDS SUMMARY | 2025-04-17 08:54 | XMS_ITS | Encounter Summary ---
[facility] Address [address] [place] [address] Care Team Providers Care Vegetable Canner Name Role Phone Jefe Schwartz MD Primary Care Provider [phone] Encounter Details Date Type Department Care Team (Late st Contact Info) Description 02/07/2025 Results Follow-Up [facility] O[facility]YN 1700 [facility] [address] [place] [phone] Aydin Crowe MD 1700 [facility] [address] [place] [address] Social History Tobacco Use Types Packs/Day Years Used Date Smoking Tobacco: Former Cigarettes Q uit: 01/2024 Smokeless Tobacco: Never Comments:Vape. Alcohol Use Standard Drinks/Week Comments Never 0 (1 standard drink = 0.6 oz pur e alcohol) [facility] Utilities Answer Date Recorded In the past 12 months has [employer], gas, oil, or water [employer] threatened to shut off services in your [...] and heating? Not hard at all 01/23/2025 [facility] - Occupational Stress Questionnaire [...] things needed for daily living? No 01/23/2025 [place] Depression Scale Answer Date Recorded Retired [place] Depression Score 11 02/23/2024 Retired EPD Scale: [...] GED or equivalent No 01/23/2025 Preferred Language American 01/23/2025 PHQ-2 Answer Date Recorded Patient Health [...] Info) Description 04/17/2025 1:40 PM EDT Visit [facility] OBGYN [address] [phone] Aydin Crowe MD [address] [address] documented as of this encounter Visit Diagnoses Not on filedocumented in this encounter Care Teams Vegetable Canner Relationship Specialty Start Date End Date Jefe Schwartz MD 1210 [facility] [address] [place] [address] PCP - General Adolescent Medicine 12/14/23 documented as of this encounter
--- OUTSIDE RECORDS SUMMARY | 2025-04-17 08:54 | XMS_ITS | Referral Summary ---
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
--- OUTSIDE RECORDS SUMMARY | 2025-04-17 08:54 | XMS_ITS | Encounter Summary ---
[facility] [address] [place] [address] Care Team Providers Care Product Engineering Manager Name Role Phone Jefe Schwartz MD Primary Care Provider [phone] Encounter Details Date Type Department Care Team (Late st Contact Info) Description 12/26/2024 Results Follow-Up [facility] OBGYN 1700 [facility] [address] [place] [phone] Kelly Patricia, FLAT MACHINE CUTTER 1700 [facility] [address] [place] [address] Social History Tobacco Use Types Packs/Day Years Used Date Smoking Tobacco: Former Cigarettes Q uit: 01/2024 Smokeless Tobacco: Never Comments:Vape. Alcohol Use Standard Drinks/Week Comments Never 0 (1 standard drink = 0.6 oz pur e alcohol) [facility] Utilities Answer Date Recorded In the past 12 months has [employer], gas, oil, or water [employer] threatened to shut off services in your [...] and heating? Not hard at all 12/30/2024 [facility] - Occupational Stress Questionnaire Answer [...] things needed for daily living? No 12/30/2024 [place] Depression Scale Answer Date Recorded Retired [place] Depression Score 11 02/23/2024 Retired EPD Scale: [...] GED or equivalent No 12/30/2024 Preferred Language American 12/30/2024 PHQ-2 Answer Date Recorded Patient Health [...] Info) Description 04/17/2025 1:40 PM EDT Visit [facility] O[facility]YN 1700 [facility] [address] [place] [address] Aydin Crowe MD 1700 [facility] [address] [place] [address] documented as of this encounter Visit Diagnoses Not on filedocumented in this encounter Care Teams Product Engineering Manager Relationship Specialty Start Date End Date Jefe Schwartz MD 1210 [facility] [address] [place] [address] PCP - General Adolescent Medicine 12/14/23 documented as of this encounter
--- OUTSIDE RECORDS SUMMARY | 2025-04-17 08:54 | XMS_ITS | Encounter Summary ---
[facility] [address] [place] [address] Care Team Providers Care Freight Clerk Name Role Phone Jefe Schwartz MD Primary Care Provider [phone] Encounter Details Date Type Department Care Team (Late st Contact Info) Description 01/12/2025 Results Follow-Up [facility] OBGYN 1700 [facility] [address] [place] [phone] Izaiah Mcdaniels MD 1700 [facility] [address] [place] [address] Social History Tobacco Use Types Packs/Day Years Used Date Smoking Tobacco: Former Cigarettes Q uit: 01/2024 Smokeless Tobacco: Never Comments:Vape. Alcohol Use Standard Drinks/Week Comments Never 0 (1 standard drink = 0.6 oz pur e alcohol) [facility] Utilities Answer Date Recorded In the past 12 months has [employer], gas, oil, or water [employer] threatened to shut off services in your [...] heating? Not hard at all 12/30/2024 [facility] - Occupational Stress Questionnaire Answer [...] things needed for daily living? No 12/30/2024 [place] Depression Scale Answer Date Recorded Retired [place] Depression Score 11 02/23/2024 Retired EPD Scale: [...] equivalent No 12/30/2024 Preferred Language Citizen Of [place] 12/30/2024 PHQ-2 Answer Date Recorded Patient Health [...] 04/17/2025 1:40 PM EDT Visit [facility] OBGYN [address] [place] [address] Aydin Crowe MD [address] [place] [address] Scheduled Orders Name Type Priority Associated Diagnoses Orde r Schedule Gestational Screen 1 Hr ([facility]) Lab Routine , unspecified gestational age Morbid obesity with BMI of 45.0-49.9, adult Expected: 01/26/2025 (Approximate), Expires: 04/14/2026 documented as of this encounter Visit Diagnoses Diagnosis , unspecified gestational age- Primary Morbid obesity with BMI of 45.0-49.9, adult documented in this encounter Care Teams Freight Clerk Relationship Specialty Start Date End Date Jefe Schwartz MD [facility] [address] [facility] [address] [place] [address] PCP - General Adolescent Medicine 12/14/23 documented as of this encounter
--- OUTSIDE RECORDS SUMMARY | 2025-04-17 08:55 | XMS_ITS | Encounter Summary ---
Author Organization [facility] Address [address] [place] [address] Care Team Providers Care Airways Control Specialist Name Role Phone Jefe Schwartz MD Primary Care Provider [phone] Encounter Details Date Type Department Care Team [...] Recorded In the past 12 months has [employer], gas, oil, or water company threatened [...] hard at all 02/18/2025 [facility] of Occupat ional Health - Occupational Stress [...] things needed for daily living? No 02/18/2025 [place] Depression Scale Answer Date Recorded Retired [place] Depression Score 11 02/23/2024 Retired EPD Scale: [...] GED or equivalent No 02/18/2025 Preferred Language Persian 02/18/2025 PHQ-2 Answer Date Recorded Patient Health [...] EDT Visit [facility] [address] [facility] [address] [place] [address] Aydin Crowe MD 1700 [facility] [address] [place] [address] documented as of this encounter Visit Diagnoses Not on filedocumented in this encounter Care Teams Airways Control Specialist Relationship Specialty Start Date End Date Jefe Schwartz MD 1210 [facility] [address] [place] [address] PCP - General Adolescent Medicine 12/14/23 documented as of this encounter
--- OUTSIDE RECORDS SUMMARY | 2025-04-17 08:55 | XMS_ITS | Encounter Summary ---
Author Organization [facility] Address [address] [place] [address] Care Team Providers Care Peer Tutor Name Role Phone Jefe Schwartz MD Primary Care Provider [phone] Encounter Details Date Type Department Care Team (Latest Contact Info) Description 02/23/2025 Travel Social History Tobacco Use Types Packs/Day Years Used Date Smoking Tobacco: Former Cigarettes Q uit: 01/2024 Smokeless Tobacco: Never Comments:Vape. Alcohol Use Standard Drinks/Week Comments Never 0 (1 standard drink = 0.6 oz pur e alcohol) [facility] Utilities Answer Date Recorded In the past 12 months has [employer], gas, oil, or water company threatened [...] and heating? Not hard at all 02/18/2025 [facility] of Occupat ional Health - Occupational Stress [...] things needed for daily living? No 02/18/2025 Leroy Depression Scale Answer Date Recorded Retired Ler[place] Depression Score 11 02/23/2024 Retired EPD Scale: [...] GED or equivalent No 02/18/2025 Preferred Language Maldivian 02/18/2025 PHQ-2 Answer Date Recorded Patient Health [...] Visit [facility] 1700 [facility] [address] [place] [address] Aydin Crowe MD 1700 [facility] [address] [place] [address] documented as of this encounter Visit Diagnoses Not on filedocumented in this encounter Care Teams Peer Tutor Relationship Specialty Start Date End Date Jefe Schwartz MD 1210 [facility] [address] [place] [address] PCP - General Adolescent Medicine 12/14/23 documented as of this encounter
--- OUTSIDE RECORDS SUMMARY | 2025-04-17 08:55 | XMS_ITS | Encounter Summary ---
Author [facility] Address [address] [place] [address] Care Team Providers Care Grain Merchandising Manager Name Role Phone Jefe Schwartz MD Primary Care Provider [phone] Encounter Details Date Type Department Care Team (Late st Contact Info) Description 11/25/2024 Results Follow-Up [facility] [address] [place] [phone] Izaiah Mcdaniels MD 1700 [facility] [address] [place] [id number] Social History Tobacco Use Types Packs/Day Years Used Date Smoking Tobacco: Former Cigarettes Q uit: 01/2024 Smokeless Tobacco: Never Comments:Vape. Alcohol Use Standard Drinks/Week Comments Never 0 (1 standard drink = 0.6 oz pur e alcohol) [facility] Utilities Answer Date Recorded In the past 12 months has [employer], [employer], oil, or water [employer] threatened to shut off services in your [...] and heating? Not hard at all 12/12/2023 [facility] of Occupat ional Health - Occupational Stress [...] things needed for daily living? No 12/12/2023 [place] Depression Scale Answer Date Recorded Retired [place] Depression Score 11 02/23/2024 Retired EPD Scale: [...] GED or equivalent No 12/12/2023 Preferred Language Wolof 12/12/2023 PHQ-2 Answer Date Recorded Retired PHQ-9: [...] EDT Visit [facility] OBGYN 1700 [facility] [address] [place] [address] Aydin Crowe MD 1700 [facility] [address] [place] [address] documented as of this encounter Visit Diagnoses Not on filedocumented in this encounter Care Teams Grain Merchandising Manager Relationship Specialty Start Date End Date Jefe Schwartz MD 1210 [facility] [address] [place] [address] PCP - General Adolescent Medicine 12/14/23 documented as of this encounter
--- OUTSIDE RECORDS SUMMARY | 2025-04-17 08:55 | XMS_ITS | Clinical Summary ---
Author Organization [facility] Address [address] [place] [id number] Care Team Providers Care Sports Leadership Instructor Name Role Phone Jefe Schwartz MD Primary Care Provider [phone] Allergies Active Allergy Reactions Criticality Noted Date [...] elevated. >UA 6.5 11/09/2024 anomaly scan at [facility] Worsening of iron deficiency anemia. Hematocrit [...] labetalol daily. Patient has a history of Vwtso-Qrmrtgxgk-Mrxrg syndrome and underwent an ablation at the [...] Further, a committee opinion published by the [employer] in April [...] women at high risk for preeclampsia ([employer] 2014; 161:819). In a 2020 update, [...] Pending culture results from Dr. Cordero in [facility]. 10/11/2023 HSV 2 IgG positive; consistent with recurrent HSV2. Rx valtrex For suppression 500 mg daily. Obesity in , antepartum 10/26/2023 Overview (10/12/2024): BMI 44 Anomaly scan at [facility]. 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 Fernando in [place] Echo & 2 week holter monitor in August 2023 wnl per patient. PDC appt 11/04; ultrasound within normal limits and normal growth. EFW 57%. No follow-up ultrasound scheduled. Assessment & Plan (11/05/2023 12:32 PM EDT): Patient currently followed by cardiology in [place]. Patient with a history of SVT but has also had cardiac ablation. Patient reports a normal echo and Holter monitor performed in August. Patient asymptomatic today. Given his history patient will likely tolerate well without issues though given cardiac history patient could consider cardiology consultation within [facility] in case patient were to have issues [...] [facility] FOB going to nursing school Chronic hypertension; no medication prior to [facility] HSV2 outbreak at 27 week visit [facility] Qjqii-dfwmiceo-USL Mild LFT elevation. Anemia 28 weeks hematocrit 29%.: on iron. PDC u/s 30 wk; EFW 57% Growth ultrasound 12/01 EFW 48%. AC 66%. Screening for cervical cancer 10/26/2023 10/26/2023 Overview (10/26/2023): Last Pap smear? Chronic hypertension affecting 10/26/2023 07/25/2024 Overview (12/10/2023): Transfer of care at [address] Cordero in [place] Baseline PEP, 24 Hour urine, HGBA1C, TSH drawn at [facility] (29wk); not on medication No [...] on hypertensive meds. Blood pressure today 115/67. Lapgl-Wavxsddge-Llcnd syndrome 10/26/2023 10/26/2023 Maternal anemia in , antepartum 10/26/2023 07/25/2024 Overview (12/02/2023): On iron supplementation. 11/05/2023 HCT 29.1%. 11/18/2023 Rx Accrufer 30 mg bid Encounters Date Type Department Care Team Description 03/17/2025 Maternal Screening [facility] NURSE CALL CENTER [address] [place] [address] Ivanna Downing, SUKUMAR 03/09/2025 Maternal Screening [facility] [address] [place] [address] Aracelis Mueller RN 03/06/2025 5:06 AM EDT Anesthesia Event [facility] LABOR DELIVERY [address] [place] [address] Mami Balbuena MD 03/06/2025 12:04 AM EDT - 03/08/2025 10:40 AM EDT Hospital Encounter [facility] MOTHER [facility]ABY 4B [address] [place] [address] Aydin Kirkpatrick MD Discharge Disposition: Home or Self Care 03/06/2025 Travel 03/06/2025 - 03/06/2025 11:59 PM EDT Hospital Encounter [facility] LABOR AND DELIVERY PROCEDURES [address] [place] [address] Discharge Disposition: Home or Self Care 03/02/2025 9:30 AM EDT Routine [facility] OBGYN [address] [address] Kartik Maurice APRN GA: 36w3d 03/02/2025 Travel 02/27/2025 10:50 AM EDT Ancillary Procedure [facility] OBGYN [address] [address] 36 weeks gestation of ; Chronic hypertension affecting 02/27/2025 9:40 AM EDT Routine [facility] OBGYN [address] [address] Aydin Kirkpatrick MD GA: 36w0d 02/27/2025 Prep for Surgery [facility] ORDERS ONLY [address] [place] [address] Aydin Kirkpatrick MD 02/27/2025 Travel 02/23/2025 3:15 PM EDT Routine [facility] OBGYN [address] [facility] [address] [address] [place] [address] Kartik Maurice, LIME PULLER GA: 35w3d 02/23/2025 2:15 PM EDT Office Visit [facility] MATERNAL MEDICINE [address] [facility] [address] [address] [place] [address] Medhat De Anda MD Chronic hypertension affecting (Primary Dx); Poor growth affecting management of mother in third trimester, single or unspecified fetus 02/23/2025 2:03 PM EDT - 02/23/2025 11:59 PM EDT Hospital Encounter [facility] US PER DIAG CTR [address] [place] [address] Aydin Kirkpatrick MD Poor growth affecting management of mother in third trimester, single or unspecified fetus Discharge Disposition: Home or Self Care 02/23/2025 Travel 02/20/2025 9:50 AM EDT Routine [facility]YN [address] [facility] [address] [place] [address] Aydin Kirkpatrick MD GA: 35w0d 02/20/2025 Travel 02/18/2025 10:19 PM EDT - 02/19/2025 8:03 AM EDT Hospital Encounter [facility] LABOR DELIVERY [address] [place] [address] Aydin Kirkpatrick MD Forester, Corey Blake, MD Discharge Disposition: Home or Self Care 02/18/2025 Travel 02/16/2025 2:15 PM EDT Routine [facility] OBGYN [address] [facility] [address] [place] [address] Kartik Maurice APRN GA: 34w3d 02/16/2025 Travel 02/13/2025 7:05 PM EDT Lab [facility]OR[facility]ORY [address] [place] [address] care, third trimester 02/13/2025 9:30 AM EDT Routine [facility] OBGYN [address] [address] Aydin Kirkpatrick MD GA: 34w0d 02/13/2025 Travel 02/11/2025 Results Follow-Up [facility] OBGYN [address] [address] Shania Schwab APRN 02/09/2025 11:15 AM EDT Routine [facility] OBGYN [address] [address] Shania Schwab APRN GA: 33w3d 02/09/2025 Travel 02/07/2025 Results Follow-Up [facility] OBGYN [address] [address] Aydin Kirkpatrick MD 02/06/2025 1:10 PM EDT Routine [facility] OBGYN [address] [address] Aydin Kirkpatrick MD GA: 33w0d 02/06/2025 Travel 02/03/2025 3:30 PM EDT Ancillary Procedure [facility] OBGYN [address] [address] History of pre-eclampsia in prior , currently ; 32 weeks gestation of ; Essential hypertension; NST (non-stress test) nonreactive 02/03/2025 2:30 PM EDT Routine [facility]YN [address] [facility] [address] [place] [address] Jose L Rosie Jo, LIME PULLER GA: 32w4d 02/03/2025 Travel 01/30/2025 Telephone [facility] O[facility]YN [address] [facility] [address] [place] [address] Aydin Kirkpatrick MD 01/23/2025 9:29 PM EDT - 01/27/2025 1:22 PM EDT Hospital Encounter [facility] ANTEPARTUM [address] [facility] [place] [address] Arturo Feliz MD Gardner, Lex J, MD Discharge Disposition: Home or Self Care 01/23/2025 Travel 01/18/2025 Telephone [facility] OBGYN [address] [facility] [address] [place] [address] Arturo Feliz MD from Last 3 Months Immunizations Immunization Administration [...] and heating? Not hard at all 03/06/2025 [facility] - Occupational [...] things needed for daily living? No 03/06/2025 Columbia Depression Scale Answer Date Recorded Columbia Depression Scale Total 2 03/17/2025 The thought [...] GED or equivalent No 03/06/2025 Preferred Language Luxembourgish 03/06/2025 PHQ-2 Answer Date Recorded Patient Health [...] Visit [facility] OBGYN [address] [place] [address] Aydin Kirkpatrick MD [address] [place] [facility] [address] [place] [address] Health Maintenance Due Date Last Done Comments Annual Gynecologic Pelvic and Breast Exam 2000 HPV VACCINES (1 - 3-dose series) 2015 ANNUAL PHYSICAL 10/26/2023 COVID-19 Vaccine (2024- season) 2025 05/22/2021, 09/12/2020, 08/22/2020 INFLUENZA VACCINE [...] care, third trimester 35 weeks gestation of [facility] [place] Routine 02/23/2025 2:44 PM EDT Poor growth [...] care, antepartum, unspecified SCANNED - PROCEDURE 02/06/2025 BIOPHYSICAL PROFILE;WITH NON-STRESS TESTING STAT 02/03/2025 3:47 PM EDT History of pre-eclampsia in prior , currently 32 weeks gestation of Essential hypertension NST (non-stress test) nonreactive POCT URINALYSIS DIPSTICK, MANUAL Routine 02/03/2025 3:10 PM EDT 32 weeks gestation of SCANNED - PROCEDURE 02/03/2025 [facility] Routine 01/25/2025 11:10 AM EDT [...] 10:00 PM EDT SCANNED - IMAGING 01/23/2025 LIQUID-BASED PAP SMEAR WITH HPV GENOTYPING IF [...] - 10.80 10*3/mm3 03/08/2025 6:04 AM EDT [facility] RBC 2.82(L) 3.77 - 5.28 10*6/mm3 03/08/2025 6:04 AM EDT [facility] Hemoglobin 7.2(L) 12.0 - 15.9 g/dL 03/08/2025 6:04 AM EDT [facility] Hematocrit 24.1(L) 34.0 - 46.6 % 03/08/2025 6:04 AM EDT [facility] MCV 85.5 79.0 - 97.0 fL 03/08/2025 6:04 AM EDT [facility] MCH 25.5(L) 26.6 - 33.0 pg 03/08/2025 6:04 AM EDT [facility] MCHC 29.9(L) 31.5 - 35.7 g/dL 03/08/2025 6:04 AM EDT [facility] RDW 15.5(H) 12.3 - 15.4 % 03/08/2025 6:04 AM EDT [facility] RDW-SD 47.4 37.0 - 54.0 fl 03/08/2025 6:04 AM EDT [facility] MPV 11.8 6.0 - 12.0 fL 03/08/2025 6:04 AM EDT [facility] Platelets 213 140 - 450 10*3/mm3 03/08/2025 6:04 AM EDT [facility] Blood Venipuncture / Unknown 03/08/2025 5:27 AM EDT 03/08/2025 5:55 AM EDT Kelly Patricia LIME PULLER LAB BLOOD ORDERABLES Final Result [facility]
[address] [place] [address], * (ABNORMAL) CBC Auto Differential (03/07/2025 5:07 AM EDT) WBC 9.80 3.40 - 10.80 10*3/mm3 03/07/2025 5:34 AM EDT [facility] RBC 2.90(L) 3.77 - 5.28 10*6/mm3 03/07/2025 5:34 AM EDT [facility] Hemoglobin 7.6(L) 12.0 - 15.9 g/dL 03/07/2025 5:34 AM EDT [facility] Hematocrit 24.7(L) 34.0 - 46.6 % 03/07/2025 5:34 AM EDT [facility] MCV 85.2 79.0 - 97.0 fL 03/07/2025 5:34 AM EDT [facility] MCH 26.2(L) 26.6 - 33.0 pg 03/07/2025 5:34 AM EDT [facility] MCHC 30.8(L) 31.5 - 35.7 g/dL 03/07/2025 5:34 AM EDT [facility] RDW 15.0 12.3 - 15.4 % 03/07/2025 5:34 AM EDT [facility] RDW-SD 46.5 37.0 - 54.0 fl 03/07/2025 5:34 AM EDT [facility] MPV 11.9 6.0 - 12.0 fL 03/07/2025 5:34 AM EDT [facility] Platelets 210 140 - 450 10*3/mm3 03/07/2025 5:34 AM [facility] Neutrophil % 67.5 42.7 - 76.0 % 03/07/2025 5:34 AM [facility] Lymphocyte % 21.3 19.6 - 45.3 % 03/07/2025 5:34 AM [facility] Monocyte % 5.8 5.0 - 12.0 % 03/07/2025 5:34 AM [facility] Eosinophil % 0.9 0.3 - 6.2 % 03/07/2025 5:34 AM [facility] Basophil % 0.4 0.0 - 1.5 % 03/07/2025 5:34 AM [facility] Immature Grans % 4.1(H) 0.0 - 0.5 % 03/07/2025 5:34 AM [facility] Neutrophils, Absolute 6.61 1.70 - 7.00 10*3/mm3 03/07/2025 5:34 AM [facility] Lymphocytes, Absolute 2.09 0.70 - 3.10 10*3/mm3 03/07/2025 5:34 AM [facility] Monocytes, Absolute 0.57 0.10 - 0.90 10*3/mm3 03/07/2025 5:34 AM [facility] Eosinophils, Absolute 0.09 0.00 - 0.40 10*3/mm3 03/07/2025 5:34 AM [facility] Basophils, Absolute 0.04 0.00 - 0.20 10*3/mm3 03/07/2025 5:34 AM [facility] Immature Grans, Absolute 0.40(H) 0.00 - 0.05 10*3/mm3 03/07/2025 5:34 AM [facility] nRBC 0.3(H) 0.0 - 0.2 /100 WBC 03/07/2025 5:34 AM [facility] Blood Venipuncture / Unknown 03/07/2025 5:07 AM EDT 03/07/2025 5:16 AM EDT Aydin Kirkpatrick MD LAB BLOOD ORDERABLES Final Resu lt [facility]
[address] [place] [address], * Tissue Pathology Exam (03/06/2025 5:50 AM EDT) Case Report Surgical Pathology Report Case: [id number] Authorizing Provider: Aydin Kirkpatrick MD Collected: 03/06/2025 05:50 AM Ordering Location: [facility] Received: 03/06/2025 06:11 AM LABOR DELIVERY Pathologist: Shilpa Rascon MD Specimen: Placenta, Placenta, 37 weeks IUGR, hypertension 03/07/2025 11:25 AM EDT [facility] Clinical Information 37 weeks, IUGR, hypertension 03/07/2025 11:25 AM EDT [facility] Final Diagnosis Placenta, vaginal delivery: Mature placental parenchyma with increased perivillous and subchorionic fibrin deposition Three-vessel umbilical cord 03/07/2025 11:25 AM EDT [facility] at 1125 EDT Gross Description [...] spongy parenchyma with no gross lesions identified. Goal Umpire sections are submitted as follows: 1A-umbilical cord with false knot and membrane roll 6C-cyim-dpoopqaxg disc with subchorionic fibrin 4U-ajrs-sxhtmymbq disc at cord insertion site. LDP 03/07/2025 11:25 AM EDT [facility] Microscopic Description The slides are reviewed and demonstrate histopathologic features supporting the above rendered diagnosis. 03/07/2025 11:25 AM EDT [facility] Tissue Placental structure / Unknown Collection / Unknown 03/06/2025 5:50 AM EDT 03/06/2025 6:11 AM EDT Aydin Kirkpatrick MD PATHOLOGY/CYTOLOGY ORDERABLES F inal Result [facility]
[address] [place] [address], * HC BH AN LABOR EPIDURAL KIT [...] evaluation and timeout performed Prep: Pt Position:sitting Leather Sponger:cap, gloves, sterile barrier, mask and gown Prep:chlorhexidine [...] Urine, Clean Catch (03/06/2025 1:19 AM EDT) [facility] Protein/Creati nine Ratio, Urine 399.3(H) 0.0 - 200.0 mg/G Crea 03/06/2025 9:31 AM EDT [facility] Creatinine, Urine 108.2 mg/dL 03/06/2025 9:31 AM EDT [facility] Total Protein, Urine 43.2 mg/dL 03/06/2025 9:31 AM EDT [facility] Urine Urine specimen obtained by clean catch procedure / Unknown Collection / Unknown 03/06/2025 1:19 AM EDT 03/06/2025 1:19 AM EDT us Aydin Kirkpatrick MD URINE ORDERABLES Final Result Performing Organization Address [facility] Co de Phone Number [facility]
[address] [place] [address], * Treponema pallidum AB w/Reflex RPR (03/06/2025 1:11 AM EDT) Only the most recent of2 resultswithin the time period is included. [facility] Treponemal AB Total Non-Reacti ve Non-React ramya 03/06/2025 1:42 PM EDT [facility] Blood Venipuncture / Unknown 03/06/2025 1:11 AM EDT 03/06/2025 1:11 AM EDT Narrative [facility] - 03/06/2025 1:42 PM EDT Reactive results will reflex RPR testing. us Aydin Kirkpatrick MD LAB BLOOD ORDERABLES Final Resu lt Performing Organization Address City/[facility]/ZIP Co de Phone Number [facility]
[address] [place] [address], [place] [phone] * (ABNORMAL) Iron Profile w/o Ferritin (03/06/2025 1:11 AM EDT) Iron 54 37 - 145 mcg/dL 03/06/2025 6:36 AM EDT [facility] Iron Saturation (TSAT) 8(L) 20 - 50 % 03/06/2025 6:36 AM EDT [facility] Transferrin 482(H) 200 - 360 mg/dL 03/06/2025 6:36 AM EDT [facility] TIBC 718(H) 298 - 536 mcg/dL 03/06/2025 6:36 AM EDT [facility] Blood Venipuncture / Unknown 03/06/2025 1:11 AM EDT 03/06/2025 2:53 AM EDT us Aydin Kirkpatrick MD LAB BLOOD ORDERABLES Final Resu lt Performing Organization Address [facility] de Phone Number [facility]
[address] [place] [address], [place] [phone] * (ABNORMAL) Uric Acid (03/06/2025 1:11 AM EDT) Only the most recent of2 resultswithin the time period is included. Pathologist [facility] Uric Acid 6.6(H) 2.4 - 5.7 mg/dL 03/06/2025 3:12 AM EDT [facility] Comment:Falsely depressed re sults may occur on samples drawn from patients receiving N-Acetylcysteine (NAC) or Metamizole. Blood Venipuncture / Unknown 03/06/2025 1:11 AM EDT 03/06/2025 2:53 AM EDT us Aydin Kirkpatrick MD LAB BLOOD ORDERABLES Final Resu lt Performing Organization Address [facility]/ZIP Co de Phone Number [facility]
[address] [place] [address], [place] [phone] * Lactate Dehydrogenase (03/06/2025 1:11 AM EDT) Only the most recent of2 resultswithin the time period is included. LDH 187 135 - 214 U/L 03/06/2025 3:12 AM EDT [facility] Blood Venipuncture / Unknown 03/06/2025 1:11 AM EDT 03/06/2025 2:53 AM EDT us Aydin Kirkpatrick MD LAB BLOOD ORDERABLES Final Resu lt Performing Organization Address [facility]/ZIP Co de Phone Number [facility]
[address] [place] [address], [place] [phone] * (ABNORMAL) Ferritin (03/06/2025 1:11 AM EDT) Pathologist [facility] Ferritin 7.88(L) 13.00 - 150.00 ng/mL 03/06/2025 6:36 AM EDT [facility] Blood Venipuncture / Unknown 03/06/2025 1:11 AM EDT 03/06/2025 2:53 AM EDT Narrative [facility] - 03/06/2025 6:36 AM EDT Results may be falsely decreased if patient taking Biotin. us Aydin Kirkpatrick MD LAB BLOOD ORDERABLES Final Resu lt Performing Organization Address [facility] Co de Phone Number [facility]
[address] [place] [address], * (ABNORMAL) Comprehensive Metabolic Panel (03/06/2025 1:11 AM EDT) Only the most recent of3 resultswithin the time period is included. Pathologist [facility] Glucose 84 65 - 99 mg/dL 03/06/2025 3:12 AM EDT [facility] BUN 8.9 6.0 - 20.0 mg/dL 03/06/2025 3:12 AM EDT [facility] Creatinine 0.87 0.57 - 1.00 mg/dL 03/06/2025 3:12 AM EDT [facility] Sodium 137 136 - 145 mmol/L 03/06/2025 3:12 AM [facility] Potassium 4.0 3.5 - 5.2 mmol/L 03/06/2025 3:12 AM [facility] Chloride 106 98 - 107 mmol/L 03/06/2025 3:12 AM [facility] CO2 18.4(L) 22.0 - 29.0 mmol/L 03/06/2025 3:12 AM [facility] Calcium 8.7 8.6 - 10.5 mg/dL 03/06/2025 3:12 AM [facility] Total Protein 6.3 6.0 - 8.5 g/dL 03/06/2025 3:12 AM [facility] Albumin 3.4(L) 3.5 - 5.2 g/dL 03/06/2025 3:12 AM [facility] ALT (SGPT) 22 1 - 33 U/L 03/06/2025 3:12 AM [facility] AST (SGOT) 16 1 - 32 U/L 03/06/2025 3:12 AM [facility] Alkaline Phosphatase 113 39 - 117 U/L 03/06/2025 3:12 AM [facility] Total Bilirubin 0.7 0.0 - 1.2 mg/dL 03/06/2025 3:12 AM [facility] Globulin 2.9 gm/dL 03/06/2025 3:12 AM [facility] Comment:Calculated Result A/G Ratio 1.2 g/dL 03/06/2025 3:12 AM [facility] BUN/Creatinine Ratio 10.2 7.0 - 25.0 03/06/2025 3:12 AM [facility] Anion Gap 12.6 5.0 - 15.0 mmol/L 03/06/2025 3:12 AM [facility] eGFR 95.6 >60.0 mL/min/1.7 3 03/06/2025 3:12 AM EDT [facility] Blood Venipuncture / Unknown 03/06/2025 1:11 AM EDT 03/06/2025 2:53 AM EDT Narrative [facility] - 03/06/2025 3:12 AM EDT GFR [...] does not include race as a factor Aydin Kirkpatrick MD LAB BLOOD ORDERABLES Final Resu lt Performing Organization Address City/[facility]/ZIP Co de Phone Number [facility]
[address] [place] [address], * Type & Screen (03/06/2025 1:03 AM EDT) Only the most recent of3 resultswithin the time period is included. ABO Type A 03/06/2025 1:37 AM EDT [facility] RH type Positive 03/06/2025 1:37 AM EDT [facility] Antibody Screen Negative 03/06/2025 1:37 AM EDT [facility] T&S Expiration Date 03/09/2025 11:59:59 PM 03/06/2025 1:37 AM EDT [facility] Blood Venipuncture / Unknown 03/06/2025 1:03 AM EDT 03/06/2025 1:03 AM EDT us Aydin Kirkpatrick MD BLOOD BANK TEST ORDERABLES Edit ed Result - Final Performing Organization Address City/[facility]/ZIP Co de Phone Number [facility]
[address] [place] [address], [place] [phone] * POC Urinalysis Dipstick (03/02/2025 9:58 AM EDT) Only the most recent of5 resultswithin the time period is included. Glucose, UA Negative Negative mg/dL [facility] Protein, POC Negative Negative mg/dL [facility] Urine 03/02/2025 9:58 AM EDT Kartik Maurice LIME PULLER POINT OF CARE TEST O RDERABLES Final Result [facility]
[address] [place] [address], [place] [phone] * Procedure Scanned (03/02/2025) Kartik Maurice APRN PROCEDURE/MINOR SURG ICAL ORDERABLES Final Result * US Biophysical Profile;With Non-Stress Testing (02/27/2025 11:10 AM EDT) Only the most recent of2 resultswithin the time period is included. Anatomical Region Laterality Modality Body Ultrasound 02/27/2025 11:5 2 AM EDT Narrative 02/27/2025 11:12 AM EDT PAT NAME: [facility] REC#: [id number] DA: 2000 PAT GEND: F PAT TYPE: O EXAM JAYSON: [id number] REF PHYS AYDIN KIRKPATRICK Indication ======== Non [...] of testing for the condition being monitored. A/C Tech: RT Kyle Pringle, [facility] Physician: Aydin Kirkpatrick MD Electronically signed by: Aydin Kirkpatrick MD at: 11:12 Procedure Note Aydin Kirkpatrick MD - 02/27/2025 PAT NAME: [facility] REC#: [id number] DA: 2000 PAT GEND: F PAT TYPE: O EXAM JAYSON: [id number] REF PHYS AYDIN KIRKPATRICK Indication ======== Non reactive NST; Morbid obesity BMI 45 Comparison Studies The findings of this study are compared to the prior ultrasound studydated 02/23/25 Method ======= [place] E6, Transabdominal ultrasound examination. View: Sufficient ========= Hernandez . Number of fetuses: 1 Dating ====== Cycle:irregular cycle Method of dating:based on stated CONG GA by prior [id number] w + 0 d CONG by prior assessment:03/27/2025 Previous Ultrasound on:07/25/2024 Type of prior assessment:GS mean Previous dating:based on stated CONG, selected on 02/03/2025 Agreed CONG of previous datin03/27/2025 Assigned:based on stated CONG, selected on 02/27/2025 Assigned GA36 w + 0 d Assigned CONG:03/27/2025 [id number] d General Evaluation Cardiac activity present. FHR [...] schedule of testing for the condition beingmonitored. A/C Tech: Annamaria Eli, RT R, RDMS Physician: Aydin Kirkpatrick MD Electronically signed by: Aydin Kirkpatrick MD at: 11:12 Aydin Kirkpatrick MD IM US ORDERABLES Final Result * POC Protein, Urine, Qualitative, Dipstick (02/27/2025 10:27 AM EDT) Only the most recent of4 resultswithin the time period is included. Protein, POC Negative Negative mg/dL [facility] Lot Number 0 [facility] Expiration Date 0 [facility] Urine 02/27/2025 10:2 7 AM EDT Aydin Kirkpatrick MD POINT OF CARE TEST ORDERABLES F inal Result Performing Organization Address [facility] de Phone Number [facility]
[address] [place] [address], * POC Glucose, Urine, Qualitative, Dipstick (02/27/2025 10:27 AM EDT) Only the most recent of4 resultswithin the time period is included. Glucose, UA Negative Negative mg/dL [facility] Urine 02/27/2025 10:2 7 AM EDT Aydin Kirkpatrick MD POINT OF CARE TEST ORDERABLES F inal Result Performing Organization Address [facility]/ZIP Co de Phone Number [facility]
[address] [place] [id number], [place] [phone] * Procedure Scanned (02/27/2025) Aydin Kirkpatrick MD PROCEDURE/MINOR SURGICAL ORDERA BLES Final Result * [facility] (02/23/2025 2:44 PM EDT) Only the most recent of2 resultswithin the time period is included. Anatomical Region Laterality Modality Ultrasound 02/23/2025 2:19 PM EDT Narrative 02/23/2025 2:48 PM EDT PAT NAME: LISA RILEY MED REC#: [id number] DA: 2000 PAT GEND: F PAT TYPE: O EXAM JAYSON: [id number] REF PHYS AYDIN KIRKPATRICK Comparison Studies The [...] EFW (oz) 11 oz EFW by: Hadlock ([id number]) Extended Cav. septi pel. tr 5.9 mm [...] Normal Heart / Thorax 3-vessel view: Normal 1-wzymoc-wggooib view: normal Stomach: Appears normal Kidneys: Appears [...] Recommend 37 week delivery. Coding ======= Description: 20790-79 Follow Up Ultrasound Description: 10367-13 BPP without NST Description: 35602-73 Doppler Umbilical Artery A/C Tech: Destini Hall RDMS Physician: Medhat De Anda MD, FACOG Electronically signed by: Medhat De Anda MD, FACOG at: 14:48 Procedure Note Medhat De Anda MD - 02/23/2025 PAT NAME: LISA RILEY MED REC#: [id number] DA: 2000 PAT GEND: F PAT TYPE: O EXAM JAYSON: [id number] REF PHYS AYDIN KIRKPATRICK Comparison Studies The findings of this study are compared to the prior ultrasound studydated 01/25/25. Patient Status Outpatient Indication ======== contractions. CHTN. Chronic proteinuria. Maternal Ghosh ParkinsonWhite. Hx PTD 35 wk - preeclampsia. Morbid obesity BMI 47 Maternal Assessment Voflyk566 cm Ulrjlo513 kg Weight (lb)273 lb BMI47.19 kg/m Method ======= Transabdominal ultrasound examination. View: Limited by patient bodyhabitus ========= Hernandez . Number of fetuses: 1 Dating ====== Cycle:irregular cycle GA by prior [id number] w + 3 d CONG by prior [...] Standard BPD85.5 mm 34w 3d 27% Hadlock IQB435.7 mm 36w 6d 79% Van HC315.5 mm 35w 3d 18% Hadlock Cerebellum tr45.4 mm 34w 6d 27% Hill AC313.1 mm 35w 2d 53% Hadlock Femur67.2 mm 34w 4d 22% Hadlock Xcrhlcg16.2 mm 34w 2d 40% Van HC / AC1.01 EFW2,567 g 34w 6d 37% Hadlock EFW (lb)5 lb EFW (oz)11 oz EFW by:Hadlock ([id number]) Extended Cav. septi pel. tr5.9 mm CM6.7 mm 26% Nicolaides Head / Face / Neck Cephalic index0.77 14% Nicolaides Extremities / Bony Struc FL / BPD0.79 FL / HC0.21 FL / AC0.21 Other Structures BDO960 bpm General Evaluation Cardiac activity present. FHR 177 bpm. movements present. Presentation cephalic. Placenta Placental site: posterior, fundal. Amniotic fluid Amount of AF: normal. MVP 4.8 cm. ELIZABETH 13.6 cm. Q1 3.2 cm,Q2 4.8 cm, Q3 3.4 cm, Q4 2.3 cm. Anatomy Cranium:Normal Cavum septi pellucidi:Normal Cerebellum:Normal Cisterna magna:Normal 4-chamber view:Appears normal RVOT view:Normal LVOT view:Normal Heart / Thorax 3-vessel view:Normal 6-zjrhky-izqnquq view:normal Stomach:Appears normal Kidneys:Appears normal Bladder:Appears normal [...] indicated. Recommend 37 week delivery. Coding ======= Description:13181-15 Follow Up Ultrasound Description:95539-74 BPP without NST Description:33964-36 Doppler Umbilical Artery A/C Tech: Destini Hall RDMS Physician: Medhat De Anda MD, FACOG Electronically signed by: Medhat De Anda MD, FACOG at: 14:48 us Aydin Kirkpatrick MD IMG US ORDERABLES Final Result * Procedure Scanned (02/23/2025) us Kartik Maurice APRN PROCEDURE/MINOR SURG ICAL ORDERABLES Final Result * Procedure Scanned (02/20/2025) us Aydin Kirkpatrick MD PROCEDURE/MINOR SURGICAL ORDERA BLES Final Result * Procedure Scanned (02/16/2025) us Bethaney M Maurice LIME PULLER PROCEDURE/MINOR SURG ICAL ORDERABLES Final Result * Group B Streptococcus Culture - Swab, Vaginal/Rectum (02/13/2025 6:55 PM EDT) Group B Strep Culture No Group B Streptococcus isolated SEAN 02/16/2025 10:43 AM EDT [facility] Swab Rectum and vagina, CS / Unknown Collection / Unknown 02/13/2025 6:55 PM EDT 02/13/2025 6:55 PM EDT Aydin Kirkpatrick MD MICROBIOLOGY - GENERAL ORDERABL ES Final Result [facility]
[address] [place] [address], * (ABNORMAL) Protein, Urine, 24 Hour - Urine, Clean Catch (02/13/2025 9:47 AM EDT) Total Protein, Urine 16.3 mg/dL [facility] Protein, 24H Urine 211.9(H) 0.0 - 150.0 mg/24hours [facility] 24 Hour Urine Urine specimen obtained by clean catch procedure / Unknown 02/13/2025 9:47 AM EDT 02/13/2025 Narrative [facility] - 02/14/2025 3:35 AM EDT Performed at: [address] [place] [address] [address] [place], [place] [id number] Diesel Service Technician: Fabian Cabrera MD, Phone: [phone] us Arturo Feliz MD URINE ORDERABLES Final Res ult [facility]) [address] [place] [address], [place] [phone] [facility] [address] [place] [address], [place] [phone] * Procedure Scanned (02/13/2025) Aydin Kirkpatrick MD PROCEDURE/MINOR SURGICAL ORDERA BLES Final Result * Chlamydia trachomatis, Neisseria gonorrhoeae, PCR w/ confirmation - Swab, Vagina (02/13/2025 12:00 AM EDT) Chlamydia trachomatis, EARNESTINE Negative Negative [facility] Neisseria gonorrhoeae, EARNESTINE Negative Negative [facility] Swab Vaginal structure / Unknown 02/13/2025 02/13/2025 Comment:Swab Release to denice Joe [facility] ([facility]) - 02/14/2025 8:09 PM EDT Performed at: - [facility] [id number] Diesel Service Technician: Alice Soriano MD, Phone: [phone] Aydin Kirkpatrick MD MICROBIOLOGY - GENERAL ORDERABL ES Final Result [facility] [address] [place] [address], [facility] [address] [place] [address], * (ABNORMAL) AlP+ALT+AST+Creat+LD+TBili+.. (02/09/2025 12:39 PM EDT) Only the most recent of2 resultswithin [...] 12:3 9 PM EDT 02/09/2025 Narrative [facility] - 02/10/2025 3:35 AM EDT Performed at: 01 - [facility] [id number] Diesel Service Technician: Edgar Mccartney PhD, Phone: [phone] us Shania Schwab APRN LAB BLOOD ORDERABLES Final R esult Performing Organization Address [facility] Co de Phone Number [facility] ([facility]) [address] [place] [address], [facility] [address] [place] [address], * Bile Acids, Total (02/09/2025 12:39 PM EDT) Bile Acids Total 4.2 0.0 - 10.0 umol/L [facility] Blood 02/09/2025 12:3 9 PM EDT 02/09/2025 Narrative [facility] ([facility]) - 02/11/2025 4:36 PM EDT Performed at: - [address] [id number] Diesel Service Technician: Alice Soriano MD, Phone: [phone] Shania Schwab APRN LAB BLOOD ORDERABLES Final R esult Performing Organization Address [facility] Co de Phone Number [facility] ([facility]) [address] [place] [address], [facility] [address] [place] [address], * (ABNORMAL) Bacterial Vaginosis, EARNESTINE - Swab, [...] 02/09/2025 Comment:Swab Release to denice young Narrative [facility] ([facility]) - 02/12/2025 5:08 PM EDT Test(s) 753605- Atopobium vaginae; 625664- BVAB 2; 554795- Megasphaera 1 was developed and its performance characteristics determined by [facility]. It has not been cleared or approved by the Food and Drug Administration. Performed at: - [address] [id number] Diesel Service Technician: Ina Couch MD, Phone: [phone] Shania Schwab APRN MICROBIOLOGY - GENERAL ORDER CATARINO Final Result [facility] (AMBULATORY) [address] [place] [address], [facility] [address] [place] [address], * Procedure Scanned (02/09/2025) [facility] Onbase PROCEDURE/MINOR SURGICAL ORDE RABLES Final Result * Procedure Scanned (02/09/2025) Shania Schwab APRN PROCEDURE/MINOR SURGICAL ORD ERABLES Final Result * Urine Culture - Urine, Urine, Clean Catch (02/09/2025 12:00 AM EDT) Only the most recent of2 resultswithin the time period is included. Urine Culture Final report [facility] Result 1 Comment [facility] Comment: Mixed urogenital elmer 10,000-25,000 colony forming units per mL Urine Urine specimen obtained by clean catch procedure / Unknown 02/09/2025 02/09/2025 Comment:Urine Release to [facility] i Narrative [facility] ([facility]ORY) - 02/11/2025 3:35 AM EDT Performed at: - [facility] [address] [place] [address], [place], [place] [id number] Diesel Service Technician: Edgar Mccartnye PhD, Phone: [phone] Shania Schwab LIME PULLER MICROBIOLOGY - GENERAL ORDER CATARINO Final Result [facility] ([facility]) [address] [place] [address], [place] [phone] [facility] [address] [place] [address], [place] [phone] * Procedure Scanned (02/06/2025) us Aydin Kirkpatrick MD PROCEDURE/MINOR SURGICAL ORDERA BLES Final Result * Procedure Scanned (02/03/2025) Rosie Domingo APRN PROCEDURE/MINOR SURGICAL ORDE RABLES Final Result * POC Amnisure (01/25/2025 10:43 AM EDT) Pathologist [facility] Amnisure Negative Negative [facility] Amniotic Fluid 01/25/2025 10 :43 AM EDT Erlinda Bingham MD POINT OF CARE TEST OR DERABLES Final Result [facility]
[address] [place] [address], * (ABNORMAL) Urinalysis, Microscopic Only - Urine, Clean Catch (01/23/2025 10:00 PM EDT) [facility] RBC, UA 0-2 None Seen, 0-2 /HPF 01/23/2025 10:10 PM EDT [facility] WBC, UA 6-10(A) None Seen, 0-2 /HPF 01/23/2025 10:10 PM EDT [facility] Bacteria, UA None Seen None Seen, Trace /HPF 01/23/2025 10:10 PM EDT [facility] Squamous Epithelial Cells, UA 3-6(A) None Seen, 0-2 /HPF 01/23/2025 10:10 PM EDT [facility] Hyaline Casts, UA 0-6 0 - 6 /LPF 01/23/2025 10:10 PM EDT [facility] Methodology Automated Microscopy 01/23/2025 10:10 PM EDT [facility] Urine Urine specimen obtained by clean catch procedure / Unknown Collection / Unknown 01/23/2025 10:00 PM EDT 01/23/2025 10:00 PM EDT Jose Wilcox MD URINE ORDERABLES Final Result [facility]
[address] [place] [address], [place] [phone] * (ABNORMAL) Urinalysis With Culture If Indicated - Urine, Clean Catch (01/23/2025 10:00 PM EDT) Color, UA Yellow Yellow, Straw 01/23/2025 10:10 PM EDT [facility] Appearance, UA Clear Clear 01/23/2025 10:10 PM EDT [facility] pH, UA 6.5 5.0 - 8.0 01/23/2025 10:10 PM EDT [facility] Specific [place], UA 1.015 1.001 - 1.030 01/23/2025 10:10 PM EDT [facility] Glucose, UA Negative Negative 01/23/2025 10:10 PM EDT [facility] Ketones, UA Negative Negative 01/23/2025 10:10 PM EDT [facility] Bilirubin, UA Negative Negative 01/23/2025 10:10 PM EDT [facility] Blood, UA Negative Negative 01/23/2025 10:10 PM EDT [facility] Protein, UA 30 mg/dL (1+)(A) Negative 01/23/2025 10:10 PM EDT [facility] Leuk Esterase, UA Trace(A) Negative 01/23/2025 10:10 PM EDT [facility] Nitrite, UA Negative Negative 01/23/2025 10:10 PM EDT [facility] Urobilinogen, UA 0.2 E.U./dL 0.2 - 1.0 E.U./dL 01/23/2025 10:10 PM EDT [facility] Urine Urine specimen obtained by clean catch procedure / Unknown Collection / Unknown 01/23/2025 10:00 PM EDT 01/23/2025 10:00 PM EDT Narrative [facility] - 01/23/2025 10:10 PM EDT In absence of clinical symptoms, the presence of pyuria, bacteria, and/or nitrites on the urinalysis result does not correlate with infection. Jose Wilcox MD URINE ORDERABLES Final Result [facility]
[address] [place] [address], * IMAGING SCANNED (01/23/2025) Anatomical Region Laterality Modality Radiographic Grace ging [facility] Onbase IMG DIAGNOSTIC IMAGING ORDERA BLES Final Result * LIQUID-BASED PAP SMEAR WITH HPV GENOTYPING IF ASCUS (KARAN,COR,MAD) (08/17/2024 3:35 PM EST) Reference Lab Report [facility] [address] [place] [address] or [phone] Luis Boyle M.D., Motor Operator PATIENT NAME LABORAT[facility] NO. LISA PINEDA. [id number] AGE SEX SSN CLIENT REF # [facility] 23 2000 F [id number] [id number] REQUESTING Benoit [place] [address] ARTURO FELIZ DATE COLLECTED DATE RECEIVED DATE [...] Essential hypertension , unspecified gestational age CABLE WEAVER: LUIS ANTONIO HOOKER (ASCP) CPT CODES: 62718 08/19/2024 10:47 AM EST [facility] ThinPrep Vial Cervix uteri structure / Unknown Collection / Unknown 08/17/2024 3:35 PM EST 08/17/2024 3:36 PM EST us Arturo Feliz MD PATHOLOGY/CYTOLOGY ORDERAB LES Final Result [facility]
[address] [place] [address], * (ABNORMAL) Obstetric Panel (08/17/2024 3:31 PM [...] 10:35 AM EST Performed at: - [facility] [address] [id number] Diesel Service Technician: Edgar Mccartney PhD, Phone: [phone] us Arturo Feliz MD LAB BLOOD ORDERABLES Final Result [facility]) [address] [place] [address], [facility] [address] [place] [address], from Last 3 Months or Most Recently Relevant to Health Maintenance Insurance [facility] [employer]IG[employer] UMR Advance Directives [...] Of Support Discussed With: Patient Care Teams Sports Leadership Instructor Relationship Specialty Start Date End Date Jefe Schwartz MD [address] [place] [address] [address] PCP - General Adolescent Medicine 12/14/23
--- OUTSIDE RECORDS SUMMARY | 2025-04-17 08:55 | XMS_ITS | Encounter Summary ---
Author Organization [facility] Address [address] [place] [address] Care Team Providers Care Drapery Maker Name Role Phone Jefe Schwartz MD Primary Care Provider [phone] Encounter Details Date Type Department Care Team (Late st Contact Info) Description 02/27/2025 Prep for Surgery [facility] ORDERS ONLY [address] [place] [address] Aydin Crowe MD [address] [facility] [address] [place] [address] Social History Tobacco Use Types Packs/Day Years Used Date Smoking Tobacco: Former Cigarettes Q uit: 01/2024 Smokeless Tobacco: Never Comments:Vape. Alcohol Use Standard Drinks/Week Comments Never 0 (1 standard drink = 0.6 oz pur e alcohol) [facility] Utilities Answer Date Recorded In the past 12 months has [employer], gas, oil, or water [employer] threatened to shut off services in your [...] and heating? Not hard at all 02/18/2025 [place] [place] of Occupat ional Health - Occupational Stress [...] things needed for daily living? No 02/18/2025 [place] Depression Scale Answer Date Recorded Retired [place] Depression Score 11 02/23/2024 Retired EPD Scale: [...] Info) Description 04/17/2025 1:40 PM EDT Visit [facility] OBGYN [address] [facility] [address] [place] [address] Aydin Crowe MD [address] [facility] [address] [place] [address] documented as of this encounter Visit Diagnoses Not on filedocumented in this encounter Care Teams Drapery Maker Relationship Specialty Start Date End Date Jefe Schwartz MD [address] [place] [facility] [address] [place] [address] PCP - General Adolescent Medicine 12/14/23 documented as of this encounter
--- OUTSIDE RECORDS SUMMARY | 2025-04-17 08:55 | XMS_ITS | Encounter Summary ---
Author Organization [facility] Address [address] [place] [address] Care Team Providers Care Wire Machine Cutter Name Role Phone Jefe Schwartz MD Primary Care Provider [phone] Encounter Details Date Type Department Care Team (Latest Contact Info) Description 02/16/2025 Travel Social History Tobacco Use Types Packs/Day Years Used Date Smoking Tobacco: Former Cigarettes Q uit: 01/2024 Smokeless Tobacco: Never Comments:Vape. Alcohol Use Standard Drinks/Week Comments Never 0 (1 standard drink = 0.6 oz pur e alcohol) [facility] Utilities Answer Date Recorded In the past 12 months has [employer], gas, oil, or water company threatened [...] and heating? Not hard at all 01/23/2025 [facility] [place] of Occupat ional Health - Occupational Stress [...] things needed for daily living? No 01/23/2025 [place] Depression Scale Answer Date Recorded Retired [place] Depression Score 11 02/23/2024 Retired EPD Scale: [...] GED or equivalent No 01/23/2025 Preferred Language Colombian 01/23/2025 PHQ-2 Answer Date Recorded Patient Health [...] Visit [facility] OBGYN [address] [facility] [address] [place] [address] Aydin Crowe MD 1700 [facility] [address] [place] [address] documented as of this encounter Visit Diagnoses Not on filedocumented in this encounter Care Teams Wire Machine Cutter Relationship Specialty Start Date End Date Jefe Schwartz MD [address] [facility] [address] [place] [address] PCP - General Adolescent Medicine 12/14/23 documented as of this encounter
--- OUTSIDE RECORDS SUMMARY | 2025-04-17 08:55 | XMS_ITS | Encounter Summary ---
Author Organization [facility] Address [address] [place] [address] Care Team Providers Care Med Aide Name Role Phone Jefe Schwartz MD Primary Care Provider [phone] Encounter Details Date Type Department Care Team (Latest Contact Info) Description 02/27/2025 Travel Social History Tobacco Use Types Packs/Day Years Used Date Smoking Tobacco: Former Cigarettes Q uit: 01/2024 Smokeless Tobacco: Never Comments:Vape. Alcohol Use Standard Drinks/Week Comments Never 0 (1 standard drink = 0.6 oz pur e alcohol) [facility] Utilities Answer Date Recorded In the past 12 months has [employer] electric, gas, oil, or water company threatened [...] and heating? Not hard at all 02/18/2025 [facility] [place] of Occupat ional Health - Occupational Stress [...] things needed for daily living? No 02/18/2025 [place] Depression Scale Answer Date Recorded Retired [place] Depression Score 11 02/23/2024 Retired EPD Scale: [...] GED or equivalent No 02/18/2025 Preferred Language Gambian 02/18/2025 PHQ-2 Answer Date Recorded Patient Health [...] Visit [facility] OBGYN 17[address] [facility] [address] [place] [address] Aydin Crowe MD 1700 [facility] [address] [place] [address] documented as of this encounter Visit Diagnoses Not on filedocumented in this encounter Care Teams Med Aide Relationship Specialty Start Date End Date Jefe Schwartz MD [address] [facility] [address] [place] [address] PCP - General Adolescent Medicine 12/14/23 documented as of this encounter
--- OUTSIDE RECORDS SUMMARY | 2025-04-17 08:55 | XMS_ITS | Encounter Summary ---
Author Organization [facility] Address [address] [place] [address] Care Team Providers Care Stave Bolt Equalizer Name Role Phone Jefe Schwartz MD Primary Care Provider [phone] Encounter Details Date Type Department Care Team (Latest Contact Info) Description 02/18/2025 Travel Social History Tobacco Use Types Packs/Day Years Used Date Smoking Tobacco: Former Cigarettes Q uit: 01/2024 Smokeless Tobacco: Never Comments:Vape. Alcohol Use Standard Drinks/Week Comments Never 0 (1 standard drink = 0.6 oz pur e alcohol) [facility] Utilities Answer Date Recorded In the past 12 months has [employer] electric, gas, oil, or water company [...] and heating? Not hard at all 02/18/2025 [facility] [place] of Occupat ional Health - Occupational Stress [...] things needed for daily living? No 02/18/2025 [place] Depression Scale Answer Date Recorded Retired [...] 10:41 PM EDT Lalito Evans RN * [place] Suicide Severity Rating Scale (Screener/Recent Self-Report) Question [...] EDT Visit [facility] OBGYN [address] [facility] [address] [place] [address] Aydin Crowe MD [address] [place] [id number] documented as of this encounter Visit Diagnoses Not on filedocumented in this encounter Care Teams Stave Bolt Equalizer Relationship Specialty Start Date End Date Jefe Schwartz MD 12[address] [facility] [address] [facility] [address] [place] [address] PCP - General Adolescent Medicine 12/14/23 documented as of this encounter
--- OUTSIDE RECORDS SUMMARY | 2025-04-17 08:56 | XMS_ITS | Encounter Summary ---
Author Organization [facility] Address [address] [place] [address] Care Team Providers Care Timers Inspector Name Role Phone Jefe Schwartz MD Primary Care Provider [phone] Encounter Details Date Type Department Care Team (Latest Contact Info) Description 02/20/2025 Travel Social History Tobacco Use Types Packs/Day Years Used Date Smoking Tobacco: Former Cigarettes Q uit: 01/2024 Smokeless Tobacco: Never Comments:Vape. Alcohol Use Standard Drinks/Week Comments Never 0 (1 standard drink = 0.6 oz pur e alcohol) [facility] Utilities Answer Date Recorded In the past 12 months has [employer] electric, gas, oil, or water company threatened [...] and heating? Not hard at all 02/18/2025 [facility] of Occupat ional Health - Occupational Stress [...] things needed for daily living? No 02/18/2025 [place] Depression Scale Answer Date Recorded Retired [place] Depression Score 11 02/23/2024 Retired EPD Scale: [...] GED or equivalent No 02/18/2025 Preferred Language Guamanian 02/18/2025 PHQ-2 Answer Date Recorded Patient Health [...] Visit [facility] OBGYN [address] [facility] [address] [place] [address] Aydin Crowe MD 1700 [facility] [address] [place] [address] documented as of this encounter Visit Diagnoses Not on filedocumented in this encounter Care Teams Timers Inspector Relationship Specialty Start Date End Date Jefe Schwartz MD [address] [facility] [address] [place] [address] PCP - General Adolescent Medicine 12/14/23 documented as of this encounter
--- OUTSIDE RECORDS SUMMARY | 2025-04-17 08:57 | XMS_ITS | Encounter Summary ---
Author Organization [facility] Address [address] [place] [address] Care Team Providers Care Acrobatic Dancer Name Role Phone Jefe Schwartz MD Primary Care Provider [phone] Encounter Details Date Type Department Care Team (Late st Contact Info) Description 03/17/2025 Maternal Screening [facility] NURSE CALL CENTER [address] [place] [phone] Ivanna Downing, RN Social History Tobacco Use Types Packs/Day Years Used Date Smoking Tobacco: Former Cigarettes Q uit: 01/2024 Passive Smoke Exposure: Past Smokeless Tobacco: Never Comments:Vape. Alcohol Use Standard Drinks/Week Comments Never 0 (1 standard drink = 0.6 oz pur e alcohol) [facility] Utilities Answer Date Recorded In the past 12 months has [employer] electric, gas, oil, or water company threatened [...] and heating? Not hard at all 03/06/2025 [facility] [place] of Occupat ional Health - Occupational Stress [...] things needed for daily living? No 03/06/2025 [place] Depression Scale Answer Date Recorded [place] Depression Scale Total 2 03/17/2025 The thought [...] GED or equivalent No 03/06/2025 Preferred Language Spanish 03/06/2025 PHQ-2 Answer Date Recorded Patient Health [...] Flowsheet Row Responses Facility patient discharged from? [place] Attempt successful? Yes Call start time 926 [...] harming myself has occurred to me. 0 [place] Depression Scale Total 2 Did any of [...] 04/17/2025 1:40 PM EDT Visit [facility] OBGYN 1700 [facility] [address] [place] [address] Aydin Crowe MD 1700 [facility] [address] [place] [address] documented as of this encounter Visit Diagnoses Not on filedocumented in this encounter Care Teams Acrobatic Dancer Relationship Specialty Start Date End Date Jefe Schwartz MD 1210 [facility] [address] [facility] [address] [place] [address] PCP - General Adolescent Medicine 12/14/23 documented as of this encounter
--- OUTSIDE RECORDS SUMMARY | 2025-04-17 08:58 | XMS_ITS | Encounter Summary ---
Author Organization [facility] Address [address] [place] [address] Care Team Providers Care Turntable Engineer Name Role Phone Jefe Schwartz MD Primary Care Provider [phone] Encounter Details Date Type Department Care Team (Late st Contact Info) Description 03/09/2025 Maternal Screening [facility] NURSE CALL CENTER [address] [place] [phone] Aracelis Mueller, RN Social History Tobacco Use Types Packs/Day Years Used Date Smoking Tobacco: Former Cigarettes Q uit: 01/2024 Passive Smoke Exposure: Past Smokeless Tobacco: Never Comments:Vape. Alcohol Use Standard Drinks/Week Comments Never 0 (1 standard drink = 0.6 oz pur e alcohol) [facility] Utilities Answer Date Recorded In the past 12 months has [employer] electric, gas, oil, or water company threatened [...] and heating? Not hard at all 03/06/2025 [facility] [place] of Occupat ional Health - Occupational Stress [...] things needed for daily living? No 03/06/2025 [facility] Depression Scale Answer Date Recorded [facility] Depression Scale Total 8 03/06/2025 The thought [...] GED or equivalent No 03/06/2025 Preferred Language Iranian 03/06/2025 PHQ-2 Answer Date Recorded Patient Health [...] Info) Description 04/17/2025 1:40 PM EDT Visit [facility] OBGYN [address] [facility] [address] [place] [address] Aydin Crowe MD [facility]00 [facility] [address] [place] [address] documented as of this encounter Visit Diagnoses Not on filedocumented in this encounter Care Teams Turntable Engineer Relationship Specialty Start Date End Date Jefe Schwartz MD 1210 [facility] [address] [place] [address] PCP - General Adolescent Medicine 12/14/23 documented as of this encounter
--- OUTSIDE RECORDS SUMMARY | 2025-04-17 09:00 | XMS_ITS | Encounter Summary ---
Author Organization [facility] Address [address] [place] [address] Care Team Providers Care Tuber Machine Cutter Name Role Phone Jefe Schwartz MD Primary Care Provider [phone] Encounter Details Date Type Department Care Team (Latest Contact Info) Description 03/06/2025 Travel Social History Tobacco Use Types Packs/Day Years Used Date Smoking Tobacco: Former Cigarettes Q uit: 01/2024 Passive Smoke Exposure: Past Smokeless Tobacco: Never Comments:Vape. Alcohol Use Standard Drinks/Week Comments Never 0 (1 standard drink = 0.6 oz pur e alcohol) [facility] Utilities Answer Date Recorded In the past 12 months has [employer], gas, oil, or water company threatened [...] and heating? Not hard at all 03/06/2025 [facility] [place] of Occupat ional Health - Occupational Stress [...] things needed for daily living? No 03/06/2025 [place] Depression Scale Answer Date Recorded [place] Depression Scale Total 8 03/06/2025 The thought [...] GED or equivalent No 03/06/2025 Preferred Language Panamanian 03/06/2025 PHQ-2 Answer Date Recorded Patient Health [...] 03/06/2025 12:42 AM Chelsy Chan RN * [place] Suicide Severity Rating Scale (Screener/Recent Self-Report) Question [...] Visit [facility] OBGYN 1700 [facility] [address] [place] [address] Aydin Crowe MD 1700 [facility] [address] [place] [address] documented as of this encounter Visit Diagnoses Not on filedocumented in this encounter Care Teams Tuber Machine Cutter Relationship Specialty Start Date End Date Jefe Schwartz MD 1210 [facility] [address] [place] [address] PCP - General Adolescent Medicine 12/14/23 documented as of this encounter
--- OUTSIDE RECORDS SUMMARY | 2025-04-17 09:00 | XMS_ITS | Encounter Summary ---
Author Organization [facility] Address [address] [place] [address] Care Team Providers Care Tax Processor Name Role Phone System, Provider Not In MD Primary Care Provider Unavailable Reason for Referral * Consultation (Routine) - Closed Specialty Diagnoses / Procedures Referred By Jeanne roberts Referred To Contact Nephrology Diagnoses Proteinuria complicating , unspecified trimester Izaiah Mcdaniels MD [address] [facility] [address] [place] [address] Phone: tel: fax: [facility] Nephrology, Bone & Mineral Metabolism [address] [facility], [address] [place] [address] Phone: tel: fax: Referral ID Status Reason Start Date Expiration Date V isits Requested Visits Authorized [id number] Closed Specialty Services Required 09/27/2024 03/29/2026 1 1 Encounter Details Date Type Department Care Team (Late st Contact Info) Description 09/27/2024 [facility] [address] [place] [address] Izaiah Mcdaniels MD [address] [place] [address] Proteinuria complicating , unspecified trimester (Primary Dx) [...] Description 06/30/2025 1:20 PM EST Office Visit [facility] [address] [place] [phone] Duke White MD [address] [place] [address] Scheduled Referrals Name Type Priority Associated Diagnoses Orde r Schedule Ambulatory referral to Nephrology Outpatient Referral Routine Proteinuria complicating , unspecified trimester Expected: 09/27/2024 (Approximate), Expires: 03/27/2026 documented as of this encounter Visit Diagnoses Diagnosis Proteinuria complicating , unspecified trimester- Primary documented in this encounter Care Teams Tax Processor Relationship Specialty Start Date End Date System, Provider Not In, [place] [address] PCP - General Family Medicine 09/29/24 documented as of this encounter
[2025-04-17 09:08] VITALS: BP 134/61; PULSE 75; RESP 18; O2SAT 97
[2025-04-17] MEDS: IRON SUCROSE COMPLEX 200 MG in 0.9 % SODIUM CHLORIDE 100 ML 220 MG IV (09:08)
[2025-04-17 09:46] VITALS: BP 117/75; PULSE 69; RESP 18; O2SAT 97
[2025-04-17 09:57] LABS: COC Drug Screen Collection Only
[2025-04-18 08:14] LABS: Hep A Ab, Total Positive (Negative); Measles Antibodies, IgG 68.8 AU/mL (Immune >16.4); Mumps Abs, IgG 30.8 AU/mL (Immune >10.9); Rubella Antibodies, IgG 1.84 index (Immune >0.99)
== END 2025-04-17 09:46 | disposition home or self-care (01) ==
LOC: INF 08:47
PROVIDERS: PCP Nurse Practitioner Family; Visit Provider Internal Medicine Medical Oncology
DX: D50.9 Iron deficiency anemia, unspecified (principal)
CPT/HCPCS: 86480; 86706; 86708; 86735; 86762; 86765; 86787; 96365; J1756

== ENCOUNTER 2025-05-11 07:37 | Outpatient (CLI) | payer OTHER, SELFPAY ==
--- OUTSIDE RECORDS SUMMARY | 2025-04-17 13:40 | XMS_ITS | Encounter Summary ---
Author Organization [facility] Address [address] [place] [address] Care Team Providers Care Director Facilities Maintenance Name Role Phone Jefe Schwartz MD Primary Care Provider [phone] Reason for Visit * Reason Comments Care Encounter Details Date Type Department Care Team (Late st Contact Info) Description 04/17/2025 1:40 PM EDT Visit [facility] OBGYN [address] [address] Aydin Crowe MD 1700 [facility] [address] [place] [address] exam (Primary Dx); Acute vaginitis; Atrophic vaginitis; Consultation for female sterilization Social History Tobacco Use Types Packs/Day Years Used Date Smoking Tobacco: Former Cigarettes Q uit: 01/2024 Passive Smoke Exposure: Past Smokeless Tobacco: Never Tobacco Cessation:Counseling Given: Not Answered Comments:Vape. Alcohol Use Standard Drinks/Week Comments Never 0 (1 standard drink = 0.6 oz pur e alcohol) [facility] Utilities Answer Date Recorded In the past 12 months has [employer], gas, oil, or water company threatened to [...] and heating? Not hard at all 03/06/2025 [facility] Health - Occupational Stress Questionnaire Answer [...] things needed for daily living? No 03/06/2025 [place] Depression Scale Answer Date Recorded [place] Depression Scale Total 7 04/17/2025 The thought of harming myself has occurred to me . Never 04/17/2025 Abuse Screen Answer Date Recorded Feels Unsafe [...] GED or equivalent No 03/06/2025 Preferred Language Central African 03/06/2025 PHQ-2 Answer Date Recorded Patient Health [...] Sign Reading Time Taken Comments Blood Pressure 110/72 04/17/2025 1:52 PM EDT Pulse - - Temperature - - Respiratory Rate - - Oxygen Saturation - - Inhaled Oxygen Concentration - - Weight 119 kg (263 lb) 04/17/2025 1:52 PM EDT Height - - Body Mass Index 43.77 03/06/2025 12:41 AM EDT documented in this encounter Progress Notes * Aydin Crowe MD - 04/17/2025 1:40 PM EDT Images from the original note were not included. Chief Complaint Patient presents with Care Visit Lisa Trevino is a 24 y.o. who presents today for a 6 week(s) check. C/S: no Vaginal, Spontaneous Information for the patient's : Freddy Luna [[id number]] 03/06/2025 male Freddy Luna 2930 g (6 lb 7.4 oz) Gestational Age: 37w0d Baby Discharged: Discharged with Mom Delivering Physician: Aydin Crowe MD Her was complicated by chronic HTN. The laceration was 2nd degree and is healing well. Patient describes vaginal bleeding as absent. Patient is . She desires a tubal ligation for contraception. She would like to discuss the following complaints today: she would like discuss sterilization. Reports tenderness and swelling in vagina that started on Thursday. She has not had intercourse. No discharge reported. Describes as raw. Patient denies concerns for depression/anxiety. Patient denies suicidal or homicidal ideation. Her depression screening questionnaire: 7. Last Pap : 08/17/24. Results: negative. Last Completed Pap Smear Upcoming PAP SMEAR (Every 3 Years) Next due on 08/17/2027 08/17/2024 LIQUID-BASED PAP SMEAR WITH HPV GENOTYPING IF ASCUS (KARAN,COR,MAD) The additional following portions of the patient's history were reviewed and updated as appropriate: allergies, current medications, past family history, past medical history, past social history, past surgical history, and problem list. Review of Systems Constitutional: Negative. HENT: Negative. Eyes: Negative. Respiratory: Negative. Cardiovascular: Negative. Gastrointestinal: Negative. Endocrine: Negative. Genitourinary: Negative. Musculoskeletal: Negative. Skin: Negative. Allergic/Immunologic: Negative. Neurological: Negative. Hematological: Negative. Psychiatric/Behavioral: Negative. All other systems reviewed and are negative. I have reviewed and agree with the HPI, ROS, and historical information as entered above. Aydin Crowe MD BP 110/72 Wt 119 kg (263 lb) LMP 05/24/2024 Yes BMI 43.77 kg/m?? Physical Exam Vitals and nursing note reviewed. Exam conducted with a drawbench operator present. Constitutional: Appearance: Normal appearance. She is well-developed. She is obese. HENT: Head: Normocephalic and atraumatic. Pulmonary: Effort: Pulmonary effort is normal. Abdominal: General: There is no distension. Palpations: Abdomen is soft. Abdomen is not rigid. There is no mass. Tenderness: There is no abdominal tenderness. There is no guarding or rebound. Genitourinary: General: Normal vulva. Exam position: Lithotomy position. Vagina: Erythema and bleeding present. No vaginal discharge or tenderness. Cervix: Normal. No cervical motion tenderness or lesion. Uterus: Normal. Not enlarged, not tender and no uterine prolapse. Adnexa: Right adnexa normal and left adnexa normal. Right: No mass, tenderness or fullness. Left: No mass, tenderness or fullness. Skin: General: Skin is warm and dry. Neurological: Mental Status: She is alert and oriented to person, place, and time. Psychiatric: Mood and Affect: Mood normal. Behavior: Behavior normal. Assessment and Plan Problem List Items Addressed This Visit None Visit Diagnoses exam - Primary Acute vaginitis Relevant Medications estradiol (ESTRACE VAGINAL) 0.1 MG/GM vaginal cream Other Relevant Orders NuSwab VG+, Annabel 6sp Atrophic vaginitis Relevant Medications estradiol (ESTRACE VAGINAL) 0.1 MG/GM vaginal cream Consultation for female sterilization Relevant Medications estradiol (ESTRACE VAGINAL) 0.1 MG/GM vaginal cream S/p Vaginal delivery, 6 week(s) . Doing well. Return to normal physical activity. No pelvic restrictions. Baby doing well. going well. Discussed estrogen cream for vaginal dryness. Likely atrophic vaginitis but difficult to assess completely due to bleeding. Will prescribe Estrace as well as check NuSwab to rule out infection Contraception: Desires tubal We discussed other options for director long term care contraception including IUD, Nexplanon, Depo, and OCP's; she strongly desires surgical sterilization. If applicable, we discussed male sterilization as an alternative. I described to Lisa the procedure in depth. We discussed that it is an outpatient laparoscopic procedure. We discussed that sterilization via bilateral salpingectomy is permanent, and cannot be reversed. We discussed that there are risks associated with surgery, and sterilization in general, including failure to prevent , risk of ectopic , infection, bleeding, and the risk of regret. We reviewed that there is data to support that the risk of regret is higher for women who are younger and for women who are nulliparous. The patient reports understanding of all the above and wishes to proceed. We reviewed recovery of laparoscopic surgery. We discussed that her menstrual cycles would not change. Discussed that the standard of care is now bilateral salpingectomy, rather than tubal ligation via cautery or clips. We discussed that there is a small decreased risk of ovarian cancer. I discussed with the patient that tubal cautery is a possibility depending on internal anatomy and difficulty accessing fallopian tubes. Patient understood. We discussed that the patient is at increased risk of complications due to her obesity She would like to proceed in July Return for preop. Aydin Crowe MD 04/17/2025 documented in this encounter Plan of Treatment Upcoming Encounters Date Type Department Care Team (Late st Contact Info) Description 07/24/2025 11:00 AM EST Office Visit [facility] OBGYN [address] [facility] [address] [place] [phone] Aydin Crowe MD 1700 [facility] [address] [place] [address] 08/21/2025 11:20 AM EST Office Visit [facility] OBGYN 1700 [facility] [address] [place] [phone] Aydin Crowe MD 1700 [facility] [address] [place] [address] documented as of this encounter Procedures Procedure Name Priority Date/Time Associated Diagnosis Comments VAGINITIS PLUS (VG+) WITH ANNABEL (SIX SPECIES), NUSWAB Routine 04/17/2025 12:00 AM EDT Acute vaginitis documented in this encounter Results * (ABNORMAL) NuSwab VG+, Annabel 6sp (04/17/2025 12:00 AM EDT) Atopobium Vaginae Low - [...] score 3-6: Indicates the presence of BV. Annabel Albicans, EARNESTINE Positive(A) Negative [facility] Annabel Glabrata, EARNESTINE Negative Negative [facility] C PARAPSILOSIS/TROP ICALIS Negative Negative [facility] Comment:This assay does not differentiate C. tropicalis and C. parapsilosis. Annabel lusitaniae, EARNESTINE Negative Negative [facility] Annabel krusei, EARNESTINE Negative Negative [facility] Trichomonas vaginosis Negative Negative [facility] Chlamydia trachomatis, EARNESTINE Negative Negative [facility] Neisseria gonorrhoeae, EARNESTINE Negative Negative [facility] Swab Cervix uteri structure / Unknown 04/17/2025 04/17/2025 Comment:Swab Specimen source ( Narrative [facility] - 04/19/2025 5:10 PM EDT Test(s) 054845- Atopobium vaginae; 597555- BVAB 2; 780082- Megasphaera 1 was developed and its performance characteristics determined by [facility]. It has not been cleared or approved by the Food and Drug Administration. Test(s) 569384-Qndkhwr albicans, EARNESTINE; 512105-Qglueou glabrata, EARNESTINE; 466409-P parapsilosis/tropicalis; 612292-Tcmtgtz lusitaniae, EARNESTINE; 357544-Mkptxfm krusei, EARNESTINE was developed and its performance characteristics determined by [facility]. It has not been cleared or approved by the Food and Drug Administration. Performed at: [address] [id number] Market Director: Ina Couch MD, Phone: [phone] Aydin Crowe MD PATHOLOGY/CYTOLOGY ORDERABLES F inal Result [facility] [address] [place] [address], [place] [phone] [facility] [address] [place] [address], [place] [phone] documented in this encounter Visit Diagnoses Diagnosis exam- Primary Acute vaginitis Unspecified vaginitis and vulvovaginitis Atrophic vaginitis Postmenopausal atrophic vaginitis Consultation for female sterilization documented in this encounter Care Teams Director Facilities Maintenance Relationship Specialty Start Date End Date Jefe Schwartz MD [address] [place] [address] PCP - General Adolescent Medicine 12/14/23 documented as of this encounter
--- OUTSIDE RECORDS SUMMARY | 2025-05-11 07:41 | XMS_ITS | Encounter Summary ---
Author Organization [facility] Address [address] [place] [address] Care Team Providers Care Histologic Aide Name Role Phone Jefe Schwartz MD Primary Care Provider [phone] Encounter Details Date Type Department Care Team (Late st Contact Info) Description 02/07/2025 Results Follow-Up [facility] OBGYN 1700 [facility] [address] [place] [phone] Aydin Crowe MD 1700 [facility] [address] [place] [address] Social History Tobacco Use Types Packs/Day Years Used Date Smoking Tobacco: Former Cigarettes Q uit: 01/2024 Smokeless Tobacco: Never Comments:Vape. Alcohol Use Standard Drinks/Week Comments Never 0 (1 standard drink = 0.6 oz pur e alcohol) [facility] Utilities Answer Date Recorded In the past 12 months has [employer], gas, oil, or water [employer] threatened to shut off services in your [...] and heating? Not hard at all 01/23/2025 [facility] - Occupational Stress Questionnaire Answer Date Recorded [...] things needed for daily living? No 01/23/2025 [place] Depression Scale Answer Date Recorded Retired [place] Depression Score 11 02/23/2024 Retired EPD Scale: [...] GED or equivalent No 01/23/2025 Preferred Language Qatari 01/23/2025 PHQ-2 Answer Date Recorded Patient Health [...] Description 07/24/2025 11:00 AM EST Office Visit [facility] OBGYN [address] [phone] Aydin Crowe MD [address] [place] [phone] 08/21/2025 11:20 AM EST Office Visit [facility] OBGYN [address] [phone] Aydin Crowe MD [address] [address] documented as of this encounter Visit Diagnoses Not on filedocumented in this encounter Care Teams Histologic Aide Relationship Specialty Start Date End Date Jefe Schwartz MD [address] [facility] [address] [place] [address] PCP - General Adolescent Medicine 12/14/23 documented as of this encounter
--- OUTSIDE RECORDS SUMMARY | 2025-05-11 07:41 | XMS_ITS | Data Portability ---
Author Organization [facility] Address [address] [place] [address] Care Team Providers Care Laboratory Apparatus Glass Blower Name Role Phone SHANI LUDWIG Primary Care Provider [phone] Assessment Encounter Date Assessment Date Assessment LastModified by Organization Details LastModified Time 11/01/2021 11/01/2021 f/up melania Not available 10/09 07:24:34 04/28/2022 04/28/2022 f/up in 6 months [email or web address] Not available 04/28/2022 13:47:02 04/12/2024 04/12/2024 f/up in 6 months [email or web address] Not available 04/12/2024 15:37:19 07/18/2024 07/18/2024 f/up PRN Not available 04/2024 10:23:59 Plan of Treatment Reminders Order Date Submit Date Provider Last Modified By Organization Details Last Modified Time Details Appointments None recorded. Lab CBC w/ auto diff 2023 024 [facility], [address] [place] [address], [id number], 18:35:50 CMP, serum or plasma 2023 024 [facility], [address] [place] [address], [id number], 4 19:15:24 hepatitis (A+B+C) panel, serum 2023 024 [facility], [address] [place] [address], [id number], 18:40:19 CBC w/ auto diff 2021 022 [facility], [address] [place] [address], [id number], 15:52:37 CMP, serum or plasma 2021 022 [facility], [address] [place] [address], [id number], 16:15:29 CBC w/ auto diff 2021 022 [facility], [address] [place] [address], [id number], 14:15:20 CMP, serum or plasma 2021 022 [facility], [address] [place] [address], [id number], 13:42:16 hepatitis (A+B+C) panel, serum 2021 [facility], [address] [place] [address], [id number], 13:45:26 Referral None recorded. Procedures None recorded. Surgeries None recorded. Imaging None recorded. Medication Orders clobetasol 0.05 % scalp solution 2023 024 [email or web address] 2 [facility], [address] [place], [address], 13:32:02 Skyrizi 150 mg/mL subcutaneou s pen injector 2023 024 [facility], [facility] ([place]), [address] [place] [address], [id number], 4 16:02:33 betamethaso ne, augmented 0.05 % lotion 2021 [email or web address] 2 [id number], [address] [place], [address], 2 14:07:39 Ultravate 0.05 % lotion 2021 022 [email or web address] [id number], [address] [place], [address], 3 15:14:25 Tremfya 100 mg/mL subcutaneou s auto-inject or 2021 [email or web address] [facility], [facility]), [address] [place] [address], [address], [place], [place], [id number], 3 15:14:17 Patient TargetsNo targets recorded. Patient Instructions Encounter Date Encounter Id Patient Instructions Last Modified By Organization Details Last Modified Time 11/01/2021 [id number] Education: We discussed the potential diagnostic options, options for further evaluation and treatments, and the risks and benefits of each. melania Not available 10/29/2021 07:24:37 04/28/2022 [id number] Education: We discussed the potential diagnostic options, options for further evaluation and treatments, and the risks and benefits of each. [email or web address] Not available 04/28/2022 07:05:56 04/12/2024 [id number] Education: We discussed the potential diagnostic options, options for further evaluation and treatments, and the risks and benefits of each. [email or web address] Not available 04/12/2024 15:37:19 07/18/2024 [id number] Education: We discussed the potential diagnostic options, options for further evaluation and treatments, and the risks and benefits of each. [email or web address] Not available 07/18/2024 10:00:58 Reason for Referral None Reported. Results Created Date Observation Date Name Description Value Unit Range Abnormal Flag Note LastModifiedBy Organization Detail LastModifiedTime 11/02/19 22 11/01/2021 COMP. METAB OLIC PANEL glucose 89 mg/dL 74-100 normal Not Available [facility] [address] [place] [address], [id number], 11/01/2021 13:42:16 11/02/19 22 11/01/2021 COMP. METAB OLIC PANEL blood urea nitrogen 8 mg/dL 6-20 normal Not Available [facility] [address] [place] [address], [address], 11/01/2021 13:42:16 11/02/19 22 11/01/2021 COMP. METAB OLIC PANEL creatinine 0.98 mg/dL 0.50-0 .95 high Not Available [facility] [address] [place] [address], [address], 11/01/2021 13:42:16 11/02/19 22 11/01/2021 COMP. METAB OLIC PANEL BUN/creatini ne ratio 8 (calc ) 10-20 low Not Available [facility] [address] [place] [address], [address], 11/01/2021 13:42:16 11/02/19 22 11/01/2021 COMP. METAB OLIC PANEL sodium 140 mmol/ L 136-14 5 normal Not Available [facility] [address] [place] [address], [address], 11/01/2021 13:42:16 11/02/19 22 11/01/2021 COMP. METAB OLIC PANEL potassium 4.7 mmol/ L 3.4-5. 0 normal Not Available [facility] [address] [place] [address], [address], 11/01/2021 13:42:16 11/02/19 22 11/01/2021 COMP. METAB OLIC PANEL chloride 105 mmol/ L 98-107 normal Not Available [facility] [address] [place] [address], [address], 11/01/2021 13:42:16 11/02/19 22 11/01/2021 COMP. METAB OLIC PANEL carbon dioxide 24 mmol/ L 22-31 normal Not Available [facility] [address] [place] [address], [address], 11/01/2021 13:42:16 11/02/19 22 11/01/2021 COMP. METAB OLIC PANEL anion gap 11 (calc ) 7-25 normal Not Available [facility] [address] [place] [address], [address], 11/01/2021 13:42:16 11/02/19 22 11/01/2021 COMP. METAB OLIC PANEL calcium 8.9 mg/dL 8.6-10 .2 normal Not Available [facility] [address] [place] [address], [address], 11/01/2021 13:42:16 11/02/19 22 11/01/2021 COMP. METAB OLIC PANEL total protein 6.6 g/dL 6.4-8. 3 normal Not Available [facility] [address] [place] [address], [address], 11/01/2021 13:42:16 11/02/19 22 11/01/2021 COMP. METAB OLIC PANEL albumin 4.4 g/dL 3.5-5. 2 normal Not Available [facility] [address] [place] [address], [address], 11/01/2021 13:42:16 11/02/19 22 11/01/2021 COMP. METAB OLIC PANEL globulin 2.2 g/dL_ (calc ) 1.5-4. 5 normal Not Available [facility] [address] [place] [address], [address], 11/01/2021 13:42:16 11/02/19 22 11/01/2021 COMP. METAB OLIC PANEL albumin/glob ulin ratio 2.0 (calc ) 1.1-2. 5 normal Not Available [facility] [address] [place] [address], [address], 11/01/2021 13:42:16 11/02/19 22 11/01/2021 COMP. METAB OLIC PANEL bilirubin, total 0.5 mg/dL 0.1-1. 2 normal Not Available [facility] [address] [place] [address], [address], 11/01/2021 13:42:16 11/02/19 22 11/01/2021 COMP. METAB OLIC PANEL alkaline phosphatase 77 U/L 30-121 normal Not Available [facility] [address] [place] [address], [address], 11/01/2021 13:42:16 11/02/19 22 11/01/2021 COMP. METAB OLIC PANEL AST 15 U/L 0-32 normal Not Available [facility] [address] [place] [address], [address], 11/01/2021 13:42:16 11/02/19 22 11/01/2021 COMP. METAB OLIC PANEL ALT 21 U/L 0-33 normal Not Available [facility] [address] [place] [address], [address], 11/01/2021 13:42:16 11/02/19 22 11/01/2021 COMP. METAB OLIC PANEL GFR 95 >= 60 normal Not Available [facility] [address] [place] [address], [address], 11/01/2021 13:42:16 11/02/19 22 11/01/2021 COMP. METAB OLIC PANEL GFR non- 82 >= 60 normal NOT E Chron ic kidne y disea se is defin ed as kidne y damag e for more than 3 month s or a GFR less than 60 mL/mi n/1.7 3 m2 for great er than 3 month s. This calcu latio n has not been valid ated in pregn ant women . For pedia tric patie nts refer to Natio nal Kidne y Found ation https :[email or web address] pena.o rg/pr jennifer ional s/KDO QI/gf r_cal culat orPed Not Available [facility] [address] [place] [address], [address], 11/01/2021 13:42:16 11/02/19 22 11/01/2021 HEPAT ITIS PANEL hepatitis A Ab, IgM Nonrea ctive non-re active normal Not Available [facility] [address] [place] [address], [address], 11/01/2021 13:45:25 11/02/19 22 11/01/2021 HEPAT ITIS PANEL hepatitis B surface Ag Nonrea ctive non-re active normal Not Available [facility] [address] [place] [address], [address], 11/01/2021 13:45:25 11/02/19 22 11/01/2021 HEPAT ITIS PANEL hepatitis B core Ab,IgM Nonrea ctive non reacti ve normal Not Available [facility] [address] [place] [address], [address], 11/01/2021 13:45:25 11/02/19 22 11/01/2021 HEPAT ITIS PANEL hcab, reflex viral RNA qt Nonrea ctive non-re active normal Antib odies to HCV were not detec kennedy; does not exclu de the possi bilit y of expos ure to HCV. Not Available [facility] [address] [place] [address], [address], 11/01/2021 13:45:25 11/02/19 22 11/01/2021 COMPL ETE BLOOD COUNT white blood cells 9.7 K/uL 3.8-10 .8 normal Not Available [facility] [address] [place] [address], [address], 11/01/2021 14:15:20 11/02/19 22 11/01/2021 COMPL ETE BLOOD COUNT red blood cells 4.65 M/uL 3.80-5 .20 normal Not Available [facility] [address] [place] [address], [address], 11/01/2021 14:15:20 11/02/19 22 11/01/2021 COMPL ETE BLOOD COUNT hemoglobin 11.2 g/dL 12.0-1 6.0 low Not Available [facility] [address] [place] [address], [address], 11/01/2021 14:15:20 11/02/19 22 11/01/2021 COMPL ETE BLOOD COUNT hematocrit 34.0 % 35.0-4 7.0 low Not Available [facility] [address] [place] [address], [address], 11/01/2021 14:15:20 11/02/19 22 11/01/2021 COMPL ETE BLOOD COUNT MCV 73 fL 80-100 low Not Available [facility] [address] [place] [address], [address], 11/01/2021 14:15:20 11/02/19 22 11/01/2021 COMPL ETE BLOOD COUNT MCH 24 pg 26-35 low Not Available [facility] [address] [place] [address], [address], 11/01/2021 14:15:20 11/02/19 22 11/01/2021 COMPL ETE BLOOD COUNT MCHC 33 g/dL 32-36 normal Not Available [facility] [address] [place] [address], [address], 11/01/2021 14:15:20 11/02/19 22 11/01/2021 COMPL ETE BLOOD COUNT RDW 16.0 % 11.0-1 5.0 high Not Available [facility] [address] [place] [address], [address], 11/01/2021 14:15:20 11/02/19 22 11/01/2021 COMPL ETE BLOOD COUNT MPV 9.4 fL 6.2-10 .5 normal Not Available [facility] [address] [place] [address], [address], 11/01/2021 14:15:20 11/02/19 22 11/01/2021 COMPL ETE BLOOD COUNT platelet count 352 K/uL 130-40 0 normal Not Available [facility] [address] [place] [address], [address], 11/01/2021 14:15:20 11/02/19 22 11/01/2021 COMPL ETE BLOOD COUNT neutrophil,a bsolute 6.8 K/uL 1.6-8. 4 normal Not Available [facility] [address] [place] [address], [address], 11/01/2021 14:15:20 11/02/19 22 11/01/2021 COMPL ETE BLOOD COUNT lymphocyte,a bsolute 2.1 K/uL 0.4-5. 1 normal Not Available [facility] [address] [place] [address], [address], 11/01/2021 14:15:20 11/02/19 22 11/01/2021 COMPL ETE BLOOD COUNT monocyte,abs olute 0.5 K/uL 0.0-1. 2 normal Not Available [facility] [address] [place] [address], [address], 11/01/2021 14:15:20 11/02/19 22 11/01/2021 COMPL ETE BLOOD COUNT eosinophil,a bsolute 0.2 K/uL 0.0-0. 8 normal Not Available [facility] [address] [place] [address], [address], 11/01/2021 14:15:20 11/02/19 22 11/01/2021 COMPL ETE BLOOD COUNT basophil,abs olute 0.0 K/uL 0.0-0. 3 normal Smear revie wed to confi rm cell morph ology . Not Available [facility] [address] [place] [address], [address], 11/01/2021 14:15:20 11/02/19 22 11/01/2021 COMPL ETE BLOOD COUNT % neutrophils 70.5 % 42.0-7 8.0 normal Not Available [facility] [address] [place] [address], [address], 11/01/2021 14:15:20 11/02/19 22 11/01/2021 COMPL ETE BLOOD COUNT % lymphocytes 22.1 % 11.0-4 7.0 normal Not Available [facility] [address] [place] [address], [address], 11/01/2021 14:15:20 11/02/19 22 11/01/2021 COMPL ETE BLOOD COUNT % monocytes 4.8 % 0.0-11 .0 normal Not Available [facility] [address] [place] [address], [address], 11/01/2021 14:15:20 11/02/19 22 11/01/2021 COMPL ETE BLOOD COUNT % eosinophils 2.4 % 0.0-7. 0 normal Not Available [facility] [address] [place] [address], [address], 11/01/2021 14:15:20 11/02/19 22 11/01/2021 COMPL ETE BLOOD COUNT % basophils 0.2 % 0.0-3. 0 normal Not Available [facility] [address] [place] [address], [address], 11/01/2021 14:15:20 11/02/19 22 11/01/2021 COMPL ETE BLOOD COUNT nucleated red cells 0.0 % 0.0-0. 9 normal Not Available [facility] [address] [place] [address], [address], 11/01/2021 14:15:20 11/02/19 22 11/01/2021 COMPL ETE BLOOD COUNT nucleated RBCs, absolute 0.00 K/uL not estab. normal Not Available [facility] [address] [place] [address], [address], 11/01/2021 14:15:20 11/02/19 22 11/01/2021 MORPH OLOGY platelet morphology NORMAL normal Not Available [facility] [address] [place] [address], [address], 11/01/2021 14:15:22 11/02/19 22 11/01/2021 MORPH OLOGY hypochromasi a SLIGHT abnormal Not Available [facility] [address] [place] [address], [address], 11/01/2021 14:15:22 11/02/19 22 11/01/2021 MORPH OLOGY polychromasi a SLIGHT abnormal Not Available [facility] [address] [place] [address], [address], 11/01/2021 14:15:22 11/02/19 22 11/01/2021 MORPH OLOGY dacryocytes SLIGHT abnormal Not Available [facility] [address] [place] [address], [address], 11/01/2021 14:15:22 04/28/20 22 04/28/2022 COMPL ETE BLOOD COUNT white blood cells 10.7 K/uL 3.8-10 .8 normal Not Available [facility] [address] [place] [address], [address], 04/28/2022 15:52:37 04/28/20 22 04/28/2022 COMPL ETE BLOOD COUNT red blood cells 4.45 M/uL 3.80-5 .20 normal Not Available [facility] [address] [place] [address], [address], 04/28/2022 15:52:37 04/28/20 22 04/28/2022 COMPL ETE BLOOD COUNT hemoglobin 11.2 g/dL 12.0-1 6.0 low Not Available [facility] [address] [place] [address] [place], [address], 04/28/2022 15:52:37 04/28/20 22 04/28/2022 COMPL ETE BLOOD COUNT hematocrit 33.7 % 35.0-4 7.0 low Not Available [facility] [address] [place] [address], [address], 04/28/2022 15:52:37 04/28/20 22 04/28/2022 COMPL ETE BLOOD COUNT MCV 76 fL 80-100 low Not Available [facility] [address] [place] [address], [address], 04/28/2022 15:52:37 04/28/20 22 04/28/2022 COMPL ETE BLOOD COUNT MCH 25 pg 26-35 low Not Available [facility] [address] [place] [address], [address], 04/28/2022 15:52:37 04/28/20 22 04/28/2022 COMPL ETE BLOOD COUNT MCHC 33 g/dL 32-36 normal Not Available [facility] [address] [place] [address], [address], 04/28/2022 15:52:37 04/28/20 22 04/28/2022 COMPL ETE BLOOD COUNT RDW 15.7 % 11.0-1 5.0 high Not Available [facility] [address] [place] [address], [address], 04/28/2022 15:52:37 04/28/20 22 04/28/2022 COMPL ETE BLOOD COUNT MPV 9.1 fL 6.2-10 .5 normal Not Available [facility] [address] [place] [address], [address], 04/28/2022 15:52:37 04/28/20 22 04/28/2022 COMPL ETE BLOOD COUNT platelet count 354 K/uL 130-40 0 normal Not Available [facility] [address] [place] [address], [address], 04/28/2022 15:52:37 04/28/20 22 04/28/2022 COMPL ETE BLOOD COUNT neutrophil,a bsolute 7.8 K/uL 1.6-8. 4 normal Not Available [facility] [address] [place] [address], [address], 04/28/2022 15:52:37 04/28/20 22 04/28/2022 COMPL ETE BLOOD COUNT lymphocyte,a bsolute 2.1 K/uL 0.4-5. 1 normal Not Available [facility] [address] [place] [address], [address], 04/28/2022 15:52:37 04/28/20 22 04/28/2022 COMPL ETE BLOOD COUNT monocyte,abs olute 0.5 K/uL 0.0-1. 2 normal Not Available [facility] [address] [place] [address], [address], 04/28/2022 15:52:37 04/28/20 22 04/28/2022 COMPL ETE BLOOD COUNT eosinophil,a bsolute 0.2 K/uL 0.0-0. 8 normal Not Available [facility] [address] [place] [address], [address], 04/28/2022 15:52:37 04/28/20 22 04/28/2022 COMPL ETE BLOOD COUNT basophil,abs olute 0.0 K/uL 0.0-0. 3 normal Not Available [facility] [address] [place] [address], [address], 04/28/2022 15:52:37 04/28/20 22 04/28/2022 COMPL ETE BLOOD COUNT % neutrophils 72.9 % 42.0-7 8.0 normal Not Available [facility] [address] [place] [address], [address], 04/28/2022 15:52:37 04/28/20 22 04/28/2022 COMPL ETE BLOOD COUNT % lymphocytes 19.9 % 11.0-4 7.0 normal Not Available [facility] [address] [place] [address], [address], 04/28/2022 15:52:37 04/28/20 22 04/28/2022 COMPL ETE BLOOD COUNT % monocytes 4.6 % 0.0-11 .0 normal Not Available [facility] [address] [place] [address], [address], 04/28/2022 15:52:37 04/28/20 22 04/28/2022 COMPL ETE BLOOD COUNT % eosinophils 2.3 % 0.0-7. 0 normal Not Available [facility] [address] [place] [address], [address], 04/28/2022 15:52:37 04/28/20 22 04/28/2022 COMPL ETE BLOOD COUNT % basophils 0.3 % 0.0-3. 0 normal Not Available [facility] [address] [place] [address], [address], 04/28/2022 15:52:37 04/28/20 22 04/28/2022 COMPL ETE BLOOD COUNT nucleated red cells 0.0 % 0.0-0. 9 normal Not Available [facility] [address] [place] [address], [address], 04/28/2022 15:52:37 04/28/20 22 04/28/2022 COMPL ETE BLOOD COUNT nucleated RBCs, absolute 0.00 K/uL not estab. normal Not Available [facility] [address] [place] [address], [address], 04/28/2022 15:52:37 04/28/20 22 04/28/2022 COMP. METAB OLIC PANEL glucose 91 mg/dL 74-100 normal Not Available [facility] [address] [place] [address], [address], 04/28/2022 16:15:29 04/28/20 04/28/2022 COMP. METAB OLIC PANEL blood urea nitrogen 10 mg/dL 6-20 normal Not Available [facility] [address] [place] [address], [address], 04/28/2022 16:15:29 04/28/20 22 04/28/2022 COMP. METAB OLIC PANEL creatinine 1.07 mg/dL 0.50-0 .95 high Not Available [facility] [address] [place] [address], [address], 04/28/2022 16:15:29 04/28/20 22 04/28/2022 COMP. METAB OLIC PANEL BUN/creatini ne ratio 9 (calc ) 10-20 low Not Available [facility] [address] [place] [address], [address], 04/28/2022 16:15:29 04/28/20 22 04/28/2022 COMP. METAB OLIC PANEL sodium 140 mmol/ L 136-14 5 normal Not Available [facility] [address] [place] [address], [address], 04/28/2022 16:15:29 04/28/20 22 04/28/2022 COMP. METAB OLIC PANEL potassium 4.3 mmol/ L 3.4-5. 0 normal Not Available [facility] [address] [place] [address], [address], 04/28/2022 16:15:29 04/28/20 22 04/28/2022 COMP. METAB OLIC PANEL chloride 104 mmol/ L 98-107 normal Not Available [facility] [address] [place] [address], [address], 04/28/2022 16:15:29 04/28/20 22 04/28/2022 COMP. METAB OLIC PANEL carbon dioxide 26 mmol/ L 22-31 normal Not Available [facility] [address] [place] [address], [address], 04/28/2022 16:15:29 04/28/20 22 04/28/2022 COMP. METAB OLIC PANEL anion gap 10 (calc ) 7-25 normal Not Available [facility] [address] [place] [address], [address], 04/28/2022 16:15:29 04/28/20 22 04/28/2022 COMP. METAB OLIC PANEL calcium 9.4 mg/dL 8.6-10 .2 normal Not Available [facility] [address] [place] [address], [address], 04/28/2022 16:15:29 04/28/20 22 04/28/2022 COMP. METAB OLIC PANEL total protein 6.9 g/dL 6.4-8. 3 normal Not Available [facility] [address] [place] [address], [address], 04/28/2022 16:15:29 04/28/20 22 04/28/2022 COMP. METAB OLIC PANEL albumin 4.1 g/dL 3.5-5. 2 normal Not Available [facility] [address] [place] [address], [address], 04/28/2022 16:15:29 04/28/20 22 04/28/2022 COMP. METAB OLIC PANEL globulin 2.8 g/dL_ (calc ) 1.5-4. 5 normal Not Available [facility] [address] [place] [address], [address], 04/28/2022 16:15:29 04/28/20 22 04/28/2022 COMP. METAB OLIC PANEL albumin/glob ulin ratio 1.5 (calc ) 1.1-2. 5 normal Not Available [facility] [address] [place] [address], [address], 04/28/2022 16:15:29 04/28/20 22 04/28/2022 COMP. METAB OLIC PANEL bilirubin, total 0.4 mg/dL 0.1-1. 2 normal Not Available [facility] [address] [place], [address], 04/28/2022 16:15:29 04/28/20 22 04/28/2022 COMP. METAB OLIC PANEL alkaline phosphatase 75 U/L 30-121 normal Not Available [facility] [address] [place], [address], 04/28/2022 16:15:29 04/28/20 22 04/28/2022 COMP. METAB OLIC PANEL AST 15 U/L 0-32 normal Not Available [facility] [address] [place], [address], 04/28/2022 16:15:29 04/28/20 22 04/28/2022 COMP. METAB OLIC PANEL ALT 26 U/L 0-33 normal Not Available [facility] [address] [place], [address], 04/28/2022 16:15:29 04/28/20 22 04/28/2022 COMP. METAB OLIC PANEL GFR 75 >= 60 normal NOT E New calcu latio n for GFR (CKD- EPI 2020) is formu lated witho ut race adjus tment facto rs at the recom menda tion of the Lisseth Angel y Valentín atevelina and Amree garcía [facility] . This calcu latio n has not been valid ated in pregn ant women . For pedia tric patie nts refer to https :[email or web address] pena.o rg/pr jennifer hutton s/KDO QI/gf r_cal culat orPed Not Available [facility] [address] [place], [address], 04/28/2022 16:15:29 04/12/20 24 04/12/2024 COMPL ETE BLOOD COUNT white blood cells 10.5 10*3/ uL 3.8-10 .8 normal Not Available [facility] [address] [place], [address], 04/12/2024 18:35:50 04/12/20 24 04/12/2024 COMPL ETE BLOOD COUNT red blood cells 4.40 10*6/ uL 3.80-5 .20 normal Not Available [facility] [address] [place] [address], [address], 04/12/2024 18:35:50 04/12/20 24 04/12/2024 COMPL ETE BLOOD COUNT hemoglobin 11.3 g/dL 12.0-1 6.0 low Not Available [facility] [address] [place] [address], [address], 04/12/2024 18:35:50 04/12/20 24 04/12/2024 COMPL ETE BLOOD COUNT hematocrit 33.9 % 35.0-4 7.0 low Not Available [facility] [address] [place] [address], [address], 04/12/2024 18:35:50 04/12/20 24 04/12/2024 COMPL ETE BLOOD COUNT MCV 77 fL 80-100 low Not Available [facility] [address] [place] [address], [address], 04/12/2024 18:35:50 04/12/20 24 04/12/2024 COMPL ETE BLOOD COUNT MCH 26 pg 26-35 normal Not Available [facility] [address] [place] [address], [address], 04/12/2024 18:35:50 04/12/20 24 04/12/2024 COMPL ETE BLOOD COUNT MCHC 33 g/dL 32-36 normal Not Available [facility] [address] [place] [address], [address], 04/12/2024 18:35:50 04/12/20 24 04/12/2024 COMPL ETE BLOOD COUNT RDW 15.1 % 11.0-1 5.0 high Not Available [facility] [address] [place] [address], [address], 04/12/2024 18:35:50 04/12/20 24 04/12/2024 COMPL ETE BLOOD COUNT MPV 9.6 fL 6.2-10 .5 normal Not Available [facility] [address] [place] [address], [address], 04/12/2024 18:35:50 04/12/20 24 04/12/2024 COMPL ETE BLOOD COUNT platelet count 302 10*3/ uL 150-40 0 normal Not Available [facility] [address] [place] [address], [address], 04/12/2024 18:35:50 04/12/20 24 04/12/2024 COMPL ETE BLOOD COUNT neutrophil,a bsolute 7.1 10*3/ uL 1.6-8. 4 normal Not Available [facility] [address] [place] [address], [address], 04/12/2024 18:35:50 04/12/20 24 04/12/2024 COMPL ETE BLOOD COUNT lymphocyte,a bsolute 2.6 10*3/ uL 0.4-5. 1 normal Not Available [facility] [address] [place] [address], [address], 04/12/2024 18:35:50 04/12/20 24 04/12/2024 COMPL ETE BLOOD COUNT monocyte,abs olute 0.5 10*3/ uL 0.0-1. 2 normal Not Available [facility] [address] [place] [address], [address], 04/12/2024 18:35:50 04/12/20 24 04/12/2024 COMPL ETE BLOOD COUNT eosinophil,a bsolute 0.2 10*3/ uL 0.0-0. 8 normal Not Available [facility] [address] [place] [address], [address], 04/12/2024 18:35:50 04/12/20 24 04/12/2024 COMPL ETE BLOOD COUNT basophil,abs olute 0.0 10*3/ uL 0.0-0. 3 normal Not Available [facility] [address] [place] [address], [address], 04/12/2024 18:35:50 04/12/20 24 04/12/2024 COMPL ETE BLOOD COUNT % neutrophils 68.2 % 42.0-7 8.0 normal Not Available [facility] [address] [place] [address], [address], 04/12/2024 18:35:50 04/12/20 24 04/12/2024 COMPL ETE BLOOD COUNT % lymphocytes 24.8 % 11.0-4 7.0 normal Not Available [facility] [address] [place] [address], [address], 04/12/2024 18:35:50 04/12/20 24 04/12/2024 COMPL ETE BLOOD COUNT % monocytes 4.8 % 0.0-11 .0 normal Not Available [facility] [address] [place] [address], [address], 04/12/2024 18:35:50 04/12/20 24 04/12/2024 COMPL ETE BLOOD COUNT % eosinophils 1.9 % 0.0-7. 0 normal Not Available [facility] [address] [place] [address], [address], 04/12/2024 18:35:50 04/12/20 24 04/12/2024 COMPL ETE BLOOD COUNT % basophils 0.3 % 0.0-3. 0 normal Not Available [facility] [address] [place] [address], [address], 04/12/2024 18:35:50 04/12/20 24 04/12/2024 COMPL ETE BLOOD COUNT nucleated red cells 0.1 % 0.0-0. 9 normal Not Available [facility] [address] [place] [address], [address], 04/12/2024 18:35:50 04/12/20 24 04/12/2024 COMPL ETE BLOOD COUNT nucleated RBCs, absolute 0.01 10*3/ uL not estab. normal Not Available [facility] [address] [place] [address], [address], 04/12/2024 18:35:50 04/12/20 24 04/12/2024 HEPAT ITIS PANEL hepatitis A Ab, IgM NONREA CTIVE nonrea ctive normal Not Available [facility] [address] [place] [address], [address], 04/12/2024 18:40:19 04/12/20 24 04/12/2024 HEPAT ITIS PANEL hepatitis B surface Ag NONREA CTIVE nonrea ctive normal Not Available [facility] [address] [place] [address], [address], 04/12/2024 18:40:19 04/12/20 24 04/12/2024 HEPAT ITIS PANEL hepatitis B core Ab,IgM NONREA CTIVE nonrea ctive normal Not Available [facility] [address] [place] [address], [address], 04/12/2024 18:40:19 04/12/20 24 04/12/2024 HEPAT ITIS PANEL hcab, reflex viral RNA qt NONREA CTIVE nonrea ctive normal Antib odies to HCV were not detec kennedy; does not exclu de the possi bilit y of expos ure to HCV. Not Available [facility] [address] [place] [address], [address], 04/12/2024 18:40:19 04/12/20 24 04/12/2024 COMP. METAB OLIC PANEL glucose 99 mg/dL 74-100 normal Not Available [facility] [address] [place] [address], [address], 04/12/2024 19:15:24 04/12/20 24 04/12/2024 COMP. METAB OLIC PANEL blood urea nitrogen 14 mg/dL 6-20 normal Not Available [facility] [address] [place] [address], [address], 04/12/2024 19:15:24 04/12/20 24 04/12/2024 COMP. METAB OLIC PANEL creatinine 1.15 mg/dL 0.50-0 .95 high Not Available [facility] [address] [place] [address], [address], 04/12/2024 19:15:24 04/12/20 24 04/12/2024 COMP. METAB OLIC PANEL BUN/creatini ne ratio 12 (calc ) 10-20 normal Not Available [facility] [address] [place] [address], [address], 04/12/2024 19:15:24 04/12/20 24 04/12/2024 COMP. METAB OLIC PANEL sodium 139 mmol/ L 136-14 5 normal Not Available [facility] [address] [place] [address], [address], 04/12/2024 19:15:24 04/12/20 24 04/12/2024 COMP. METAB OLIC PANEL potassium 3.9 mmol/ L 3.4-5. 0 normal Not Available [facility] [address] [place] [address], [address], 04/12/2024 19:15:24 04/12/20 24 04/12/2024 COMP. METAB OLIC PANEL chloride 102 mmol/ L 98-107 normal Not Available [facility] [address] [place] [address], [address], 04/12/2024 19:15:24 04/12/20 24 04/12/2024 COMP. METAB OLIC PANEL carbon dioxide 25 mmol/ L 22-31 normal Not Available [facility] [address] [place] [address], [address], 04/12/2024 19:15:24 04/12/20 24 04/12/2024 COMP. METAB OLIC PANEL anion gap 12 (calc ) 7-25 normal Not Available [facility] [address] [place] [address], [address], 04/12/2024 19:15:24 04/12/20 24 04/12/2024 COMP. METAB OLIC PANEL calcium 9.1 mg/dL 8.6-10 .2 normal Not Available [facility] [address] [place] [address], [address], 04/12/2024 19:15:24 04/12/20 24 04/12/2024 COMP. METAB OLIC PANEL total protein 7.1 g/dL 6.4-8. 3 normal Not Available [facility] [address] [place] [address], [address], 04/12/2024 19:15:24 04/12/20 24 04/12/2024 COMP. METAB OLIC PANEL albumin 4.0 g/dL 3.5-5. 2 normal Not Available [facility] [address] [place] [address], [address], 04/12/2024 19:15:24 04/12/20 24 04/12/2024 COMP. METAB OLIC PANEL globulin 3.1 1.5-4. 5 normal Not Available [facility] [address] [place] [address], [address], 04/12/2024 19:15:24 04/12/20 24 04/12/2024 COMP. METAB OLIC PANEL albumin/glob ulin ratio 1.3 (calc ) 1.1-2. 5 normal Not Available [facility] [address] [place] [address], [address], 04/12/2024 19:15:24 04/12/20 24 04/12/2024 COMP. METAB OLIC PANEL bilirubin, total 0.6 mg/dL 0.1-1. 2 normal Not Available [facility] [address] [place] [address], [address], 04/12/2024 19:15:24 04/12/20 24 04/12/2024 COMP. METAB OLIC PANEL alkaline phosphatase 62 U/L 30-121 normal Not Available [facility] [address] [place], [address], 04/12/2024 19:15:24 04/12/20 24 04/12/2024 COMP. METAB OLIC PANEL AST 17 U/L 0-32 normal Not Available [facility] [address] [place], [address], 04/12/2024 19:15:24 04/12/20 24 04/12/2024 COMP. METAB OLIC PANEL ALT 23 U/L 0-33 normal Not Available [facility] [address] [place] [address], [address], 04/12/2024 19:15:24 04/12/20 24 04/12/2024 COMP. METAB OLIC PANEL GFR 68 >= 60 normal NOT E New calcu latio n for GFR (CKD- EPI 2020) is formu lated witho ut race adjus tment facto rs at the recom menda tion of the [employer] and Ameri can Socie ty of Nephr ology . This calcu latio n has not been valid ated in pregn ant women . For pedia tric patie nts refer to [email or web address] :[email or web address] [email or web address].kindra pena.o rg/pr ofess ional s/KDO QI/gf r_cal culat orPed Not Available [facility] [address] [place], [address], 04/12/2024 19:15:24 09/16/19 22 09/16/2021 exerc ise stres s test No observ ation record ed. [email or web address] Not Available 2021 11:08:41 09/16/19 22 09/16/2021 cardi ac stres s test No observ ation record ed. [email or web address] Bela Marques MD [address], [place], [address], 09/16/2021 11:58:59 Result Notes None recorded. Problems Name Problem SNOMED Code Status Onset Date Resolution Date Notes Provider Name and Address Organization Details Recorded Time Flexural psoriasi s 599045790 Active 2015 From [employer];Pro vider: Leatha Hawk;Rudi tatus: Active Not Available [facility] 6 07:38:05 Chest pain 08800513 Active 2018 CHAYO LEYVA PA-C [address] [place] [address], [address] , [facility] 9 09:37:38 Palpitat ions 22422215 Active 2018 CHAYO LEYVA PA-C [address] [place] [address], [address] , [facility] 9 09:37:42 Electroc ardiogra m abnormal 481983771 Completed 201810/10/2018 BELA MARQUES MD [address] [place] [address], [id number] [place] [address] 9 13:11:32 Chris-Pa rkinson- White pattern 32501878 Active 2018 BELA MARQUES MD [address] [place] [address], [address] , [facility] 9 13:11:38 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 Procedures Surgical History Date Name Laterality Status Provider Name and Address Organization Details Recorded Time 09/16/19 22 Stress Test - Exercise Treadmill completed BELA MARQUES MD [address] [place] [address], [address], [facility] 09/16/2021 11:01:47 10/16/19 19 Other completed Piedad Willoughby [facility] 01/05/2019 08:11:26 09/16/19 19 Echocardiogram completed BELA MARQUES MD [facility] [place], [address], [facility] 09/16/2018 15:11:05 Imaging Results None recorded. Procedure Notes None recorded. Medical Equipment None Reported. Allergies Allergen ID Allergen Name Allergen Category Reaction Reaction Severity Criticality Documentation Date Start Date Code Code System Note Provider Name and Address Organization Details Recorded Time 734284 fentanyl medicatio n Not available Not available Not available 04/12/2024 4337 RxNorm Gabriela Stephens [facility] 15:45:23 Medications Name Sig Start Date Stop Date Status Note LastModified by Organization Details LastModified Time Compound Tetracain e Lollipops 0.5% USE FOR 1 MINUTE EVERY 1 HOUR FOR PAIN 08/23 completed Not Available Not Available Not Available Prescript ion - Prior Authoriza tion Request 01/15 completed Not Available Not Available Not Available metoprolo l succinate ER 50 mg tablet,ex tended release 24 hr Take 1 tablet every day by oral route. 04/12 completed Not Available Not Available Not Available Lotrisone 1 %-0.05 % topical cream APPLY TO BOTH EAR CANALS WITH CLEAN QTIP 2 TIMES PER DAY FOR 10 DAYS. 11/01 completed Not Available Not Available Not Available betametha sone, augmented 0.05 % topical cream APPLY A THIN LAYER TO THE AFFECTED AREA(S) BY TOPICAL ROUTE TWICE DAILY ; DO NOT EXCEED 50 GRAMS PER WK 01/15 completed Not Available Not Available Not Available Ultravate 0.05 % topical cream As Directed 07/12 completed Not Available Not Available Not Available betametha sone, augmented 0.05 % lotion APPLY TO AFFECTED AREA(S) ON SCALP BY TOPICAL ROUTE ONCE DAILY FOR 14 DAYS AND MASSAGE LIGHTLY 2021 active Not Available Not Available Not Avai lable hydrocort isone 2.5 % topical cream APPLY A THIN LAYER TO THE AFFECTED AREA(S) BY TOPICAL ROUTE 2 TIMES PER DAY 07/12 completed Not Available Not Available Not Available fluocinon david 0.05 % topical solution Daily 10/11 completed Instruct ions: for scalp;Fr equency: daily;Al t Frequenc y: prn;Medi cation Descript ion: fluocino nide topical; Dosage:1 ; Route:to pical; refills: 5; Quantity :60 solution Not Available Not Available Not Available Prozac 10 mg capsule Take 1 capsule every day by oral route. active Not Available Not Available No t Available clobetaso l 0.05 % scalp solution APPLY TO THE AFFECTED SCALP AREA BY TOPICAL ROUTE 2 TIMES PER DAY IN THE MORNING AND EVENING 2023 active Not Available Not Available Not Avai lable ondansetr on 4 mg disintegr ating tablet TAKE 1 TAB EVERY 6 HOURS NEEDED FOR NAUSEA 08/23 completed Not Available Not Available Not Available oxycodone 5 mg tablet TAKE 1 TAB EVERY 4-6 HOURS NEEDED FOR PAIN NOT CONTROLL ED BY TYLENOL/ IBUPROFE N 08/23 completed Not Available Not Available Not Available clobetaso l 0.05 % shampoo APPLY A THIN LAYER BY TOPICAL ROUTE ONCE DAILY TO DRY SCALP LEAVE IN PLACE 15 MIN. THEN LATHER AND RINSE. 10/11 completed Not Available Not Available Not Available Vitamin D active Not Available Not Ingrid ilable Not Available Orapred ODT 30 mg disintegr ating tablet TAKE 1 TAB EVERY 24 HOURS ONLY NEEDED FOR BREAKTHR OUGH PAIN 08/23 completed Not Available Not Available Not Available Calcitren e 0.005 % topical ointment Daily 10/11 completed Instruct ions: Apply to the affected areas once daily;Fr equency: daily;Me dication Descript ion: calcipot riene topical; Dosage:1 ; Route:to pical; refills: 5; Quantity :1 ointment Not Available Not Available Not Available Otezla 30 mg tablet TAKE ONE TABLET BY MOUTH TWICE DAILY. TAKE WITH OR WITHOUT FOOD. DO NOT CRUSH, CHEW OR SPLIT TABLET. STORE AT ROOM TEMPERAT URE. 08/13 completed Not Available Not Available Not Available Cosentyx Pen 300 mg/2 pens (150 mg/mL) subcutane ous pen injector Inject 300 mg (two 150-mg injectio ns) once per week for 5 weeks. After this, the dosage is lowered to 300 mg (two 150-mg injectio ns) every 4 weeks. 01/15 completed Not Available Not Available Not Available Rexulti active Not Available Not Avail able Not Available Ultravate 0.05 % lotion APPLY A THIN LAYER TO THE AFFECTED AREA(S) on hands BY TOPICAL ROUTE 2 TIMES PER DAY 01/15 completed Not Available Not Available Not Available Humira(CF ) Pen 40 mg/0.4 mL subcutane ous kit INJECT 40MG QOWEEK 2022 active Not Available Not Available Not Avai lable Humira(CF ) Pen Ps-Uv-Ado l HS 80 mg/0.8 mL(1)-40 mg/0.4 mL(2)subc ut kit Inject 80 mg at week 0, then 40 mg at week 1, then 40 mg every 2 wks. 01/15 completed Not Available Not Available Not Available Tremfya 100 mg/mL subcutane ous auto-inje ctor 01/15 completed Not Available Not Available Not Available Skyrizi 150 mg/mL subcutane ous pen injector active Not Available Not Available Not Available Hyrimoz(C F) Pen 40 mg/0.4 mL subcutane ous pen injector active Not Available Not Available Not Available Vitals Date Recorded Body height Body mass index (BMI) Body weight Respiratory rate Heart rate Oxygen saturation Oxygen saturation in Arterial blood by Pulse oximetry Systolic And Diastolic Provider Name and Address Organization Details Last Updated DateTime 2 167.64 cm 42 kg/m2 935135. 12 g 18 /min 92 /min 99 % 99 % 104/74 mm[Hg] Amada Borja [facility] 2 12:02:26 Social History Question Answer Notes LastModified by Organizat ion Details LastModified Time Tobacco Smoking Status Never Smoker Gia [email or web address], [facility] 12/14/2017 08:51:07 How Much Tobacco Do You Chew? None Information not available 01/05/2019 What Was The Date Of Your Most Recent Tobacco Screening? 09/16/2021 Information not available 09/16/2021 How Many Children Do You Have? 0 [email or web address] Information not available 08/13/2021 What Is Your Relationship Status? Single [email or web address] Information not available 08/13/2021 How Much Tobacco Do You Smoke? No [email or web address] Information not available 01/05/2019 Has Tobacco Cessation Counseling Been Provided? Yes Information not available 09/16/2021 On What Date Was Tobacco Cessation Counseling Provided? 09/16/2021 Information not available 09/16/2021 How Many Years Have You Smoked Tobacco? 0 [email or web address] Information not available 01/05/2019 Have You Recently Traveled Abroad? No [email or web address] Information not available 08/13/2021 Sex: Female Functional Status Question Answer Note LastModified by Organizat ion Details LastModified Time Do you use any illicit or recreational drugs? No Information not available 09/16/2021 Do you or have you ever used any other forms of tobacco or nicotine? No Information not available 09/16/2021 What is your level of alcohol consumption? None Information not available 09/07/2018 Do you or have you ever used smokeless tobacco? Never used smokeless tobacco Information not available 10/12/2019 Do you or have you ever used e-cigarettes or vape? Never used electronic cigarettes Information not available 10/12/2019 Mental Status None recorded. Family History Relationship Description Onset Age of this Age Resolved Age Notes LastModified by Organization Details LastModified Time Unspecified Relation Allergic rhinitis [email or web address] Not available 2018 08:09:37 Mother Arthritis Not availabl e 01/05/2019 08:09:54 Mother Asthma [email or web address] Not available 1 09/12/2019 13:24:17 Mother Diabetes mellitus [email or web address] Not available 2019 13:24:35 Father Arthritis [email or web address] Not availabl e 01/05/2019 08:09:54 Father Heart disease [email or web address] Not available 2019 13:23:57 Father Hypertensive disorder [email or web address] Not available 2019 13:24:07 Sister Diabetes mellitus [email or web address] Not available 2019 13:24:35 Notes:father has had bypass surgery, mother has afib Medical History Condition Response Emphysema N COPD N Arthritis N Acid Reflux (GERD) N Rheumatoid Arthritis N Bleeding Disorder N Asthma N Diabetes N Heart Disease N Hypertension N Gynecological HistoryNo gynecological history recorded. Obstetrics History GPAL:G 0 P 0 0 0 0 Immunizations Vaccine Type Date Status Note Provider Nam e and Address Organization Details Recorded Time Influenza, split virus, quadrivalent, preservative 8 completed [place] [facility] 01/05/2019 08:09:18 Past Encounters Encounter ID Performer Location Encounter Start Date Encounter Closed Date Diagnosis/Indication Diagnosis SNOMED-CT Code Diagnosis ICD10 Code Diagnosis IMO Codes Diagnosis Note [id number] LEATHA HAWK MD DERMATLENY [address] [place] [address] 7 02/17/2017 09:23:50 02/19/2017 09:36:16 Psoriasis 6452467 L40.9 Flaring on scalp and hands - Discussed treatment options - Will refill Ultravate cream and start clobetasol shampoo and soln. Consider Otezla. [id number] LEATHA HAWK MD DERMATOLO GY [facility] [address] [place] [address] 7 12/14/2017 08:41:54 12/14/2017 12:41:37 Psoriasis 1385079 L40.9 Doing well - continue Clobetasol Shampoo and Ultravate as needed. Intertrigo 82376110 L30. 4 Upper inner thighs - Recommend trying Zeasorb AF powder [id number] CHAYO LEYVA PA-C CARDIOLOG Y [place] [address] [place] [address] [place] [address] 09/07/2018 08:53:10 09/07/2018 10:30:15 Chest pain 16697977 R07.9 Palpitations 83829295 R0 0.2 Electrocar diogram abnormal 878955124 R94.31 [id number] BELA MARQUES MD ECHO VASCULAR LAB [facility] [address] [place] [address] 09/16/2018 12:43:34 09/17/2018 09:22:49 Atypical chest pain 558878247 R07.89 Electrocar diogram abnormal 473456930 R94.31 [id number] BELA MARQUES MD HEART STATION [address] [place] [address] 09/23/2018 08:22:45 09/23/2018 10:57:16 Palpitations 80395971 R00.2 [id number] BELA MARQUES MD CARDIOLOG Y [address] [place] [address] 10/11/2018 12:30:40 10/13/2018 09:47:47 Ppcuw-Abdptfcei-Jbpvr pattern 82474586 I45.6 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 She is not appropriat e candidate for EP evaluation and radiofrequ ency ablation. Discussed ablation therapy with the patient to include the procedural aspects and potential benefits. The patient understand s and accepts that potential complicati ons include, but are not limited to: , stroke, worsening arrhythmia , perforatio n, need for urgent surgery, need for permanent pacemaker as well as bleeding and thrombotic events. [id number] BELA MARQUES MD CARDIOLOG Y [address] [place] [address] 10/20/2018 12:55:39 10/21/2018 09:34:35 Jpcjw-Gsvsbeumm-Jetqw pattern 93183077 I45.6 I have reassured the patient that her heart rate of 90-95 bpm is in a normal range and that her EKG shows evidence of a durable ablation result to date. [id number] STEVAN HUTCHINS MD RHEUMATOL OGY [address] [place] [address] 01/05/2019 07:47:31 01/06/2019 17:34:52 Body mass index 30+ - obesity 027110998 Z68.30 BMI 36. Low-carb diet, regular exercise encouraged . Anti-nucle ar factor detected 734968283 R76.8 a very pleasant 18-year-ol d female recently treated for WPW with ablation therapy. During workup and evaluation , she is found to have a positive SHANTI screen along with marginally positive anticentro mere antibodies . Her clinical examinatio n is essentiall y unremarkab le. She has stable Psoriasis, and without any features of skin thickening or skin tightening . No evidence of sclerodact yly noted. No telangiect asias noted. Further, she has normal musculoske letal examinatio n. Has a physiologi c systemic examinatio n. I also performed nail fold capillary examinatio n which is normal. No Raynaud's observed. In summary,Solis young does not have evidence of any underlying connective tissue disease process. Her SHANTI screen is low positive which can sometimes be seen in patients with psoriasis. the low positive anticentro mere antibody at 1.6 is of no clinical significan ce. Of note in particular , she does not have any features of systemic lupus, Sjogren's syndrome, scleroderm a or mixed connective tissue disease process. She is reassured. I do not see any indication for further evaluation of the positive SHANTI screen. [id number] LEATHA HAWK MD [address] [place] [address] 07/15/2019 09:54:59 07/15/2019 13:42:15 Psoriasis [id number] L40.9 Scalp and hands has used Clobetasol and Ultravate Discussed Otezla and biologics Will try to get Otezla approved - Will give a starter min today [id number] CHAYO LEYVA PA-C CARDIOLOG Y [address] [place] [address] 5 10/12/2019 14:37:57 10/12/2019 15:22:31 Palpitations [id number] R00.2 Chris-Park inson-White pattern 76932207 I45.6 [id number] BELA MARQUES MD HEART STATION [address] [place] [address] 10/13/2019 10:36:07 10/13/2019 10:36:34 Palpitations 41993372 R00.2 [id number] MD GIDEON REYNA ENT CHRIS [facility]END[facility] CLOSED [address] [place] [address] 07/12/2020 13:06:50 07/12/2020 13:51:01 Hypertrophy of tonsils 06314900 J35.1 Recurrent acute tonsillitis 464711042 J03.91 Chronic tonsillitis 9097 9004 J35.01 Psoriasis 6108912 L40.9 -TAKES OTEZPIEDAD Perez-Katy inson-White pattern 22570535 I45.6 -S/P CARDIAC ABLATION [id number] LIYAH RIVERA MD SURGERY SCHEDULE [address] [place] [address] 07/30/2020 07:03:39 07/30/2020 07:04:26 [id number] LIYAH RIVERA MD [place] ENT [facility] EXTENDED SERVICES CLOSED [address] [place] [address] 08/23/2020 11:02:10 08/23/2020 11:48:37 Hypertrophy of tonsils 87164404 J35.1 -s/p TONSILLECT FILIBERTO AND ADENOIDECT FILIBERTO 07/30/20 Recurrent acute tonsillitis 166050031 J03.91 Chronic tonsillitis 9097 9004 J35.01 Psoriasis 3488517 L40.9 -TAKES OTEZPIEDAD Perez-Katy inson-White pattern 45846303 I45.6 -S/P CARDIAC ABLATION Examination of ear 93350 0007 Z01.118 Acute ivone al otitis externa 619316256 B36.9 [id number] CHAYO LEYVA PA-C CARDIOLOG Y [address] ,[address] [place] [address] 08/13/2021 11:05:20 08/13/2021 12:11:30 Body mass index 40+ - severely obese 520281382 Z68.42 Non-starch y vegetables , lean proteins, avoid fried foods and high fatty foods. Avoid concentrat ed sweets and sugary beverages. Increase activity, 15-20 minute walk 4-5 times a week. Elevated blood-pressure reading without diagnosis of hypertension 140913364 R03.0 Continue to monitor blood pressures. Encouraged weight loss exercise and low-sodium diet. Chest pain 08062928 R07. 9 Likely related to palpitatio ns in conjunctio n with elevated blood pressures. We will add metoprolol 50 mg daily. Follow-up with Dr. Marques in 6 weeks with treadmill stress test. Patient was advised to call should she develop any problems in the interim Palpitations 65916738 R0 0.2 [id number] BELA MARQUES MD CARDIOLOG Y [address] [place] [address] 09/16/2021 10:16:09 09/16/2021 12:23:48 Obese [id number] E66.9 Hyperdynam ic circulation 931434517 R09.89 Mrs. Trevino presented with complaints of hyper dynamic circulatio n manifested by tachycardi a and hypertensi on which has responded to beta-block er therapy. This may be an early sign of hypertensi on. She has been instructed to continue on her current medical regimen. Additional recommenda tions include: 1. A heart healthy diet with a BMI goal of less than 25 2. Regular exercise with a goal of 150 minutes of moderate activity per week and 75 minutes of vigorous physical activity per week if possible. 3. Smoking cessation if applicable and avoidance of secondhand smoke where possible. 4. Sodium restrictio n of less than 2.4 g per day. 5. Avoidance of excessive alcohol use. 6. Maintain close follow-up with primary care physician. 7. Encourage compliance with all prescribed medication s. 8. Call with significan t changes in symptoms or side effects from medication or any other concerns. [id number] BELA MARQUES MD HEART STATION [address] [place] [address] 09/16/2021 10:14:05 09/16/2021 11:11:37 [id number] MD GIUSEPPE [place] [address] [place] [address] 11/01/2021 09:06:57 11/01/2021 10:30:39 Psoriasis 6293085 L40.9 Scalp and handswith PSA - joint involvemen thas used Clobetasol and Ultravate Discussed Otezla and biologicsh as been using Otezla but not effectiveW ill start PA for Tremfyalab s ordered today, had tb skin test yesterdayc ontinue ultravate Psoriatic arthritis 0383 15025 L40.50 [id number] MD GIUSE[place]PE [place] [address] [place] [address] 04/28/2022 13:11:04 04/28/2022 13:58:58 Psoriasis 9646184 L40.9 Scalp and hands--bet ter, not clearArthr itis betterStar kennedy Humira in November--lab today Failed Otezla Clobetasol and ultravateW ill continue Humira for now and use augmented betamethas one lotion as needed Patient is trying to get , discussed uncertain risks but probably safeConsid er Cimzia Psoriatic arthritis 1563 68949 L40.50 Joint pain better since starting Humira [id number] LEATHA HAWK MD [facility] [address] [place] [address] 04/12/2024 15:32:34 04/12/2024 16:14:28 Psoriasis 0996068 L40.9 Scalp has flare upArthriti s - Not doing wellStarte d Humira in November 2021 Failed OtezlaStop ped Humira in Sep 2022 6 months before getting .S topped augmented betamethas one lotion. Pt had a baby in December, not trying to conceive January 20, 2024 Negative PPD Will begin Skyrizi todayLabs done today Psoriatic arthritis 1563 48414 L40.50 Joint pain Is extreme [id number] LEATHA HAWK MD [place] [place] [address] [place] [address] 07/18/2024 09:53:15 07/18/2024 12:18:18 Psoriasis 7154731 L40.9 Scalp has flare up with much itchArthri tis - Not doing wellStarte d Humira in November 2021- Helped until she got Tried/Fail ed Otezla, Clobetasol , Augmented Betamethas oneStopped Humira in Sep 2022 6 months before getting .S topped augmented betamethas one lotion.Ult ravate 0.05% lotion helped some Pt had a baby in December 2023, Pt just found out she is againD/C Skyrizi--i t has cleared the ps but itch persists January 20, 2024 Negative PPDNo labs today Will start clobetasol 0.05% solutionCo nsider dermasmoot h oilF/up after baby is born and nursing is overconsid er Cimzia if needed Psoriatic arthritis 1563 77390 L40.50 Joint pain Is extreme Health Concerns Section Related Observation LastModified by Organization Detai ls LastModified Time None Recorded Concern Status LastModified by Organization Details LastModified Time None Recorded Advance Directives Directive None Recorded Payers Insurance Date Sequence Insurance Name Policy Number Policy Alvarez Covered Member ID Alvarez Member ID Guarantor Name 03/11/2019 PAYMENT PLAN Lisa Trevino 07/15/2024 1 [facility] HEALTH BENEFITS PLAN - OPEN ACCESS PLUS 32 Altagracia Trevino [id number] Lisa E R Uriel 12/13/2020 PAYMENT PLAN Lisa E R Uriel 11/16/2020 1 [facility] HEALTH BENEFIT PLAN Altagracia Trevino [id number] Lias Moellerlin 01/22/2023 PAYMENT PLAN Lisa Trevino Notes Date Note Type Note Provider Name and Address Organization Details Recorded Time 09/16/2021 text/html Ms. Trevino is seen after stress testing whic hwas ordered after the patient presented with c/o exertional CP asstd. with HTN and sinus tachycardia for which beta sarkis was prescribed. She reports that while at work she experienced hypertension associate with tachycardia and went to the local emergency room where she was diagnosed with anxiety. Additional symptoms included what she described as a sharp chest pain, losing her breath, and hearing her heartbeat in her ears. Her blood pressure and sense of tachycardia have improved after institution of beta-sarkis therapy She has a history of WPW with prior ablation of a left anterolateral AP in 2018. BELA MARQUES MD [address] [place] [address], [phone], [facility] 09/16/2021 12:19:06 11/01/2021 text/html ROS as noted in the HPI Established Patient here for SAUMYA of psoriasis on scalp and hands - has taken Otezla in the past with benefit - also has used Ultravate lotion for hands and Clobetasol shampoo with benefit1) Has been using Otezla but not effective 2) Pt states of morning finger joint pain3) has had a TB skin test, negative Denies any other new, changing, or bleeding lesions, or other rashes, feels well , good mood and has no family history of melanoma. LEATHA HAWK MD [address] [place] [address], [phone], [facility] 11/01/2021 13:16:22 04/28/2022 text/html ROS as noted in the [facility] Established Patient here for SAUMYA of psoriasis on scalp and hands Failed Otezla - started Humira in November - Patient states psoriasis is better but still has flares on scalpJoints are better since starting HumiraLabs in October - unremarkableDue for lab today Denies fever, cough, shortness of breath, other unusual infections, or severe injection reactions. Denies any other new, changing, or bleeding lesions, or other rashes, feels well , good mood and has no family history of melanoma. LEATHA HAWK MD [address] [place] [address], [phone], [facility] 04/28/2022 14:07:20 04/12/2024 text/html ROS as noted in the [facility] Established Patient here for SAUMYA of psoriasis on scalp- Last seen in 2021 Failed OtezlaStarted Humira in November 2021 - Worked wellLabs in October 2021 - unremarkableSevere joint pain in hands knees Denies fever, cough, shortness of breath, other unusual infections, or severe injection reactions.Denies any other new, changing, or bleeding lesions, or other rashes, feels well , good mood and has no family history of melanoma. LEATHA HAWK MD [address] [place] [address], [phone], [facility] 04/12/2024 16:39:55 07/18/2024 text/html ROS as noted in the [facility] Established Patient here for SAUMYA of psoriasis on scalp Failed OtezlaStarted Humira in November 2021 - Worked wellSevere joint pain in hands knees Pt is currently using Skyrizi X3 monthsLast labs done in 4Pt states she has seen no change at all since using the SkyriziPt just found out that she is Denies fever, cough, shortness of breath, other unusual infections, or severe injection reactions.Denies any other new, changing, or bleeding lesions, or other rashes, feels well , good mood and has no family history of melanoma. LEATHA HAWK MD [address] [place] [address] [place], [address], [facility] 07/18/2024 12:33:28 OBGyn Episode No OBEpisode recorded.
--- OUTSIDE RECORDS SUMMARY | 2025-05-11 07:41 | XMS_ITS | Encounter Summary ---
Author Organization [facility] Address [address] [place] [address] Care Team Providers Care Criminal Justice Social Worker Name Role Phone Jefe Schwartz MD Primary Care Provider [phone] Encounter Details Date Type Department Care Team (Late st Contact Info) Description 11/25/2024 Results Follow-Up [facility] [address] [place] [phone] Izaiah Mcdaniels MD 1700 [facility] [address] [place] [id number] Social History Tobacco Use Types Packs/Day Years Used Date Smoking Tobacco: Former Cigarettes Q uit: 01/2024 Smokeless Tobacco: Never Comments:Vape. Alcohol Use Standard Drinks/Week Comments Never 0 (1 standard drink = 0.6 oz pur e alcohol) [facility] Utilities Answer Date Recorded In the past 12 months has [employer], [employer], oil, or water [employer] threatened to shut off services in your [...] and heating? Not hard at all 12/12/2023 [facility] of Occupat ional Health - Occupational Stress [...] things needed for daily living? No 12/12/2023 [place] Depression Scale Answer Date Recorded Retired [place] Depression Score 11 02/23/2024 Retired EPD Scale: [...] GED or equivalent No 12/12/2023 Preferred Language [place] Islander 12/12/2023 PHQ-2 Answer Date Recorded Retired PHQ-9: [...] Description 07/24/2025 11:00 AM EST Office Visit [facility] OBGYN [address] [address] Aydin Crowe MD 1700 [place] [id number] 08/21/2025 11:20 AM EST Office Visit [facility] OBGYN [address] [address] Aydin Crowe MD [address] [address] documented as of this encounter Visit Diagnoses Not on filedocumented in this encounter Care Teams Criminal Justice Social Worker Relationship Specialty Start Date End Date Jefe Schwartz MD 1210 [facility] [address] [place] [address] PCP - General Adolescent Medicine 12/14/23 documented as of this encounter
--- OUTSIDE RECORDS SUMMARY | 2025-05-11 07:41 | XMS_ITS | Encounter Summary ---
Author Organization Healthcare Address [address] [place] [address] Care Team Providers Care Counseling Aide Name Role Phone System, Provider Not In MD Primary Care Provider Unavailable Reason for Referral * Consultation (Routine) - Authorized Specialty Diagnoses / Procedures Referred By Jeanne roberts Referred To Contact Nephrology Diagnoses Proteinuria complicating , unspecified trimester Izaiah Mcdaniels MD 1700 [facility] [address] [place] [address] Phone: tel: fax: [facility] Nephrology, Bone & Mineral Metabolism [address] [facility], [address] [place] [address] Phone: tel: fax: Referral ID Status Reason Start Date Expiration Date Visits Requested Visits Authorized [id number] Authorized Specialty Services Required 02/13/2025 08/15/2026 1 1 Encounter Details Date Type Department Care Team (Late st Contact Info) Description 02/13/2025 Community Orders Community Practice [address] [place] [address] Izaiah Mcdaniels MD [address] [place] [address] Proteinuria complicating , unspecified trimester (Primary Dx) [...] Description 06/30/2025 1:20 PM EST Office Visit [facility] [address] [place] [phone] Duke White MD [address] [place] [phone] Scheduled Referrals Name Type Priority Associated Diagnoses [...] documented as of this encounter Care Teams Counseling Aide Relationship Specialty Start Date End Date System, Provider Not In, [address] [place] [address] PCP - General Family Medicine 09/29/24 documented as of this encounter
--- OUTSIDE RECORDS SUMMARY | 2025-05-11 07:41 | XMS_ITS | Clinical Summary ---
Author Organization Healthcare Address [address] [place] [address] Care Team Providers Care Magnetic Prospector Name Role Phone System, Provider Not In [...] Community Orders Community Practice [address] [place] [address] Izaiah Mcdaniels MD Proteinuria complicating , unspecified [...] Description 06/30/2025 1:20 PM EST Office Visit [facility] [address] [place] [address] Duke White MD [address] [place] [phone] Health Maintenance Due Date Last Done Comments [facility]-Infant/Child/Adol SDOH Screenings 2000 [facility]-Varicella Vaccines (2 of 2 - 2-dose childhood series) 06/09/2005 03/17/2005 HPV Vaccines (1 - 3-dose series) 2015 [facility]- SDOH Screenings 2018 [facility]-Adult SDOH Screenings 2018 [id number] Vaccine ( season) 2025 05/22/2021, 09/12/2020, 08/22/2020 [facility]-Influenza Vaccine (#1) 2025 [...] Reactive 10/06/2024 6:03 PM EST [facility] Comment:Screening for HIV 1 & 2 antibodies, and P24 antigen is NONREACTIVE. No confirmatory testing is required. Blood Venous blood specimen / Unknown Venipuncture / Unknown 10/06/2024 3:25 PM EST 10/06/2024 3:25 PM EST Aston Meyer MD LAB BLOOD ORDERABLES Final Resul t Performing Organization Address City/[facility] Co de Phone Number [facility] [address] [place] [address] * Acute Hepatitis Panel (10/06/2024 3:25 PM EST) Hepatitis B Surf Antigen Negative Negative 10/06/2024 7:03 PM EST [facility] Hepatitis C Antibody Negative Negative 10/06/2024 7:03 PM EST [facility] Hepatitis A Antibody IgM Negative Negative 10/06/2024 7:03 PM EST [facility] Hepatitis B Core Antibody IgM Negative Negative 10/06/2024 7:03 PM EST [facility] Blood Venous blood specimen / Unknown Venipuncture / Unknown 10/06/2024 3:25 PM EST 10/06/2024 3:25 PM EST Aston Meyer MD LAB BLOOD ORDERABLES Final Resul t Performing Organization Address [facility] Phone Number [facility] [address] [place] [address] from Last 3 Months or Most Recently Relevant to Health Maintenance Insurance [employer] [facility] MEDICAID CIGNA Care Teams Magnetic Prospector Relationship Specialty Start Date End Date System, Provider Not In, [place] [address] PCP - General Family Medicine 09/29/24
--- OUTSIDE RECORDS SUMMARY | 2025-05-11 07:41 | XMS_ITS | Encounter Summary ---
[facility] Organization [facility] Address [address] [place] [address] Care Team Providers Care Control Integration Engineer Name Role Phone Jefe Schwartz MD Primary Care Provider [phone] Encounter Details Date Type Department Care Team (Late st Contact Info) Description 04/19/2025 Results Follow-Up [facility] OBGYN 1700 [facility] [address] [place] [phone] Aydin Crowe MD 1700 [facility] [address] [place] [address] Social History Tobacco Use Types Packs/Day Years Used Date Smoking Tobacco: Former Cigarettes Q uit: 01/2024 Passive Smoke Exposure: Past Smokeless Tobacco: Never Comments:Vape. Alcohol Use Standard Drinks/Week Comments Never 0 (1 standard drink = 0.6 oz pur e alcohol) [facility] Utilities Answer Date Recorded In the past 12 months has [employer], gas, oil, or water [employer] threatened to shut off services in your [...] heating? Not hard at all 03/06/2025 [facility] - Occupational Stress Questionnaire Answer Date [...] things needed for daily living? No 03/06/2025 [place] Depression Scale Answer Date Recorded [place] Depression Scale Total 7 04/17/2025 The thought [...] GED or equivalent No 03/06/2025 Preferred Language Colombian 03/06/2025 PHQ-2 Answer Date Recorded Patient Health [...] Description 07/24/2025 11:00 AM EST Office Visit [facility] OBGYN [address] [address] Aydin Crowe MD [address] [address] 08/21/2025 11:20 AM EST Office Visit [facility] OBGYN [address] [address] Aydin Crowe MD [address] [address] documented as of this encounter Visit Diagnoses Not on filedocumented in this encounter Care Teams Control Integration Engineer Relationship Specialty Start Date End Date Jefe Schwartz MD [facility] [place] [address] [address] [place] [address] PCP - General Adolescent Medicine 12/14/23 documented as of this encounter
--- OUTSIDE RECORDS SUMMARY | 2025-05-11 07:41 | XMS_ITS | Encounter Summary ---
[facility] [address] [place] [address] Care Team Providers Care Lab Instructor Name Role Phone Jefe Schwartz MD Primary Care Provider [phone] Encounter Details Date Type Department Care Team (Late st Contact Info) Description 12/26/2024 Results Follow-Up [facility] OBGYN 1700 [facility] [address] [place] [phone] Kelly Patricia, ELECTRONIC CALIBRATION TECHNICIAN 1700 [facility] [address] [place] [address] Social History Tobacco Use Types Packs/Day Years Used Date Smoking Tobacco: Former Cigarettes Q uit: 01/2024 Smokeless Tobacco: Never Comments:Vape. Alcohol Use Standard Drinks/Week Comments Never 0 (1 standard drink = 0.6 oz pur e alcohol) [facility] Utilities Answer Date Recorded In the past 12 months has [email or web address], gas, oil, or water [employer] threatened to shut off services in your [...] and heating? Not hard at all 12/30/2024 [facility] - Occupational Stress [...] things needed for daily living? No 12/30/2024 [place] Depression Scale Answer Date Recorded Retired [place] Depression Score 11 02/23/2024 Retired EPD Scale: [...] GED or equivalent No 12/30/2024 Preferred Language Portuguese 12/30/2024 PHQ-2 Answer Date Recorded Patient Health [...] Description 07/24/2025 11:00 AM EST Office Visit [facility] OBGYN [address] [address] Aydin Crowe MD [address] [address] 08/21/2025 11:20 AM EST Office Visit [facility] OBGYN [address] [address] Aydin Crowe MD [address] [address] documented as of this encounter Visit Diagnoses Not on filedocumented in this encounter Care Teams Lab Instructor Relationship Specialty Start Date End Date Jefe Schwartz MD [address] [place] [address] [address] [place] [address] PCP - General Adolescent Medicine 12/14/23 documented as of this encounter
--- OUTSIDE RECORDS SUMMARY | 2025-05-11 07:41 | XMS_ITS | Encounter Summary ---
Author Organization [facility] Address [address] [place] [address] Care Team Providers Care Computer Laboratory Technician Name Role Phone Jefe Schwartz MD Primary Care Provider [phone] Encounter Details Date Type Department Care Team (Latest Contact Info) Description 04/17/2025 Travel Social History Tobacco Use Types Packs/Day Years Used Date Smoking Tobacco: Former Cigarettes Q uit: 01/2024 Passive Smoke Exposure: Past Smokeless Tobacco: Never Comments:Vape. Alcohol Use Standard Drinks/Week Comments Never 0 (1 standard drink = 0.6 oz pur e alcohol) [facility] Utilities Answer Date Recorded In the past 12 months has [facility] electric, gas, oil, or water company threatened [...] and heating? Not hard at all 03/06/2025 [facility] [place] of Occupat ional Health - Occupational Stress [...] things needed for daily living? No 03/06/2025 [facility] [place] Depression Scale Answer Date Recorded [facility] [place] Depression Scale Total 7 04/17/2025 The thought [...] GED or equivalent No 03/06/2025 Preferred Language Georgian 03/06/2025 PHQ-2 Answer Date Recorded Patient Health [...] Description 07/24/2025 11:00 AM EST Office Visit [facility] OBGYN [address] [address] Aydin Crowe MD [address] [address] 08/21/2025 11:20 AM EST Office Visit [facility] OBGYN [address] [address] Aydin Crowe MD [address] [address] documented as of this encounter Visit Diagnoses Not on filedocumented in this encounter Care Teams Computer Laboratory Technician Relationship Specialty Start Date End Date Jefe Schwartz MD 1210 [facility] [address] [place] [address] PCP - General Adolescent Medicine 12/14/23 documented as of this encounter
--- OUTSIDE RECORDS SUMMARY | 2025-05-11 07:41 | XMS_ITS | Encounter Summary ---
[facility] Address [address] [place] [address] Care Team Providers Care Equipment Tech Name Role Phone Jefe Schwartz MD Primary Care Provider [phone] Encounter Details Date Type Department Care Team (Late st Contact Info) Description 12/15/2024 Results Follow-Up [facility] OBGYN [address] [facility] [address] [place] [phone] Izaiah Mcdaniels MD [address] [facility] [address] [place] [address] Social History Tobacco Use Types Packs/Day Years Used Date Smoking Tobacco: Former Cigarettes Q uit: 01/2024 Smokeless Tobacco: Never Comments:Vape. Alcohol Use Standard Drinks/Week Comments Never 0 (1 standard drink = 0.6 oz pur e alcohol) [facility] Utilities Answer Date Recorded In the past 12 months has [employer], gas, oil, or water [employer] threatened to shut off services in your [...] and heating? Not hard at all 12/12/2023 [facility] - Occupational Stress Questionnaire Answer Date Recorded [...] things needed for daily living? No 12/12/2023 [place] Depression Scale Answer Date Recorded Retired Ferdinand Depression Score 11 02/23/2024 Retired EPD Scale: [...] GED or equivalent No 12/12/2023 Preferred Language Bruneian 12/12/2023 PHQ-2 Answer Date Recorded Retired PHQ-9: [...] Description 07/24/2025 11:00 AM EST Office Visit [facility] OBJOYCEN [address] [email or web address] [address] [place] [address] Aydin Crowe MD [address] [place] [address] 08/21/2025 11:20 AM EST Office Visit [facility] OBGYN [address] [place] [address] Aydin Crowe MD [address] [place] [id number] documented as of this encounter Visit Diagnoses Not on filedocumented in this encounter Care Teams Equipment Tech Relationship Specialty Start Date End Date Jefe Schwartz MD [address] [facility] [address] [place] [address] PCP - General Adolescent Medicine 12/14/23 documented as of this encounter
--- OUTSIDE RECORDS SUMMARY | 2025-05-11 07:41 | XMS_ITS | Encounter Summary ---
[facility] Address [address] [place] [address] Care Team Providers Care Highway Engineer Name Role Phone Jefe Schwartz MD Primary Care Provider [phone] Encounter Details Date Type Department Care Team (Late st Contact Info) Description 12/26/2024 Results Follow-Up [facility] OBGYN [address] [facility] [address] [place] [phone] Kelly Patricia, MINERALOGY TEACHER [address] [facility] [address] [place] [address] Social History Tobacco Use Types Packs/Day Years Used Date Smoking Tobacco: Former Cigarettes Q uit: 01/2024 Smokeless Tobacco: Never Comments:Vape. Alcohol Use Standard Drinks/Week Comments Never 0 (1 standard drink = 0.6 oz pur e alcohol) [facility] Utilities Answer Date Recorded In the past 12 months has [employer], gas, oil, or water [employer] threatened to shut off services in your [...] and heating? Not hard at all 12/30/2024 [facility] - Occupational [...] things needed for daily living? No 12/30/2024 [place] Depression Scale Answer Date Recorded Retired [...] GED or equivalent No 12/30/2024 Preferred Language Icelandic 12/30/2024 PHQ-2 Answer Date Recorded Patient Health [...] 07/24/2025 11:00 AM EST Office Visit [facility] OBGYN [address] [phone] Aydin Crowe MD [address] [address] 08/21/2025 11:20 AM EST Office Visit [facility] OBGYN [address] [phone] Aydin Crowe MD [address] [address] documented as of this encounter Visit Diagnoses Not on filedocumented in this encounter Care Teams Highway Engineer Relationship Specialty Start Date End Date Jefe Schwartz MD [address] [place] [address] [address] [place] [address] PCP - General Adolescent Medicine 12/14/23 documented as of this encounter
--- OUTSIDE RECORDS SUMMARY | 2025-05-11 07:41 | XMS_ITS | Encounter Summary ---
[facility] [address] [place] [address] Care Team Providers Care Blacksmith Apprentice Name Role Phone Jefe Schwartz MD Primary Care Provider [phone] Encounter Details Date Type Department Care Team (Late st Contact Info) Description 01/12/2025 Results Follow-Up [facility] OBGYN [address] [facility] [address] [place] [phone] Izaiah Mcdaniels MD [address] [facility] [address] [place] [address] Social History Tobacco Use Types Packs/Day Years Used Date Smoking Tobacco: Former Cigarettes Q uit: 01/2024 Smokeless Tobacco: Never Comments:Vape. Alcohol Use Standard Drinks/Week Comments Never 0 (1 standard drink = 0.6 oz pur e alcohol) [facility] Utilities Answer Date Recorded In the past 12 months has [employer], gas, oil, or water [employer] threatened to shut off services in your [...] and heating? Not hard at all 12/30/2024 [facility] - Occupational Stress Questionnaire Answer [...] things needed for daily living? No 12/30/2024 [place] Depression Scale Answer Date Recorded Retired [place] Depression Score 11 02/23/2024 Retired EPD Scale: [...] GED or equivalent No 12/30/2024 Preferred Language Belgian 12/30/2024 PHQ-2 Answer Date Recorded Patient Health [...] Description 07/24/2025 11:00 AM EST Office Visit [facility] OBGYN [address] [place] [address] Aydin Crowe MD [address] [place] [address] 08/21/2025 11:20 AM EST Office Visit [facility]YN [address] [facility] [address] [place] [address] Aydin Crowe MD 1700 [facility] [address] [place] [address] Scheduled Orders Name Type Priority Associated Diagnoses Orde r Schedule Gestational Screen 1 Hr ([facility]) Lab Routine , unspecified gestational age Morbid obesity with BMI of 45.0-49.9, adult Expected: 01/26/2025 (Approximate), Expires: 04/14/2026 documented as of this encounter Visit Diagnoses Diagnosis , unspecified gestational age- Primary Morbid obesity with BMI of 45.0-49.9, adult documented in this encounter Care Teams Blacksmith Apprentice Relationship Specialty Start Date End Date Jefe Schwartz MD [facility] [address] [facility] [place] [address] PCP - General Adolescent Medicine 12/14/23 documented as of this encounter
--- OUTSIDE RECORDS SUMMARY | 2025-05-11 07:42 | XMS_ITS | Clinical Summary ---
Author Organization [facility] Address [address] [place] [id number] Care Team Providers Care Cooking Chef Name Role Phone Jefe Schwartz MD Primary Care Provider [phone] Allergies Active Allergy Reactions Criticality Noted Date Comments Fentanyl Mental Status Change Low 10/26/2023 Pt gets mean broke 4 restraints and aggressive towards staff Medications vitamins (PRENATABS RX) 29-1 MG tablet tablet Take 1 tablet by mouth Daily. 30 tablet 11 07/25/20 24 2024 Active valACYclovir (VALTREX) 500 MG tablet Take 1 tablet by mouth 2 (Two) Times a Day. Active estradiol (ESTRACE VAGINAL) 0.1 MG/GM vaginal creamIndicati ons:Atrophic vaginitis Insert 1 gm intravaginally 1-3 times each week 1 each 04/17/20 25 Active Ferric Maltol (ACCRUFeR) 30 MG capsule Take 1 capsule by mouth 2 (Two) Times a Day. Take on an empty stomach. 60 capsule 9 01/19/20 25 2024 Discontinued metroNIDAZOLE (FLAGYL) 500 MG tablet Take 1 tablet by mouth 2 (Two) Times a Day for 7 days. 14 tablet 04/19/20 25 2024 fluconazole (Diflucan) 150 MG tablet Take 1 tablet by mouth 1 (One) Time for 1 dose. Take once, then again 3 days later 2 tablet 04/19/20 25 2024 Active Problems Problem Noted Date Diagnosed Date [...] elevated. >UA 6.5 11/09/2024 anomaly scan at [facility] Worsening of iron deficiency anemia. Hematocrit [...] labetalol daily. Patient has a history of Vumzq-Bpfqjnjca-Hqbcv syndrome and underwent an ablation at the [...] Further, a committee opinion published by the [employer] in April [...] women at high risk for preeclampsia (Lore Filler [employer] Med 2014; 161:819). In a 2020 update, [...] Overview (10/12/2024): BMI 44 Anomaly scan at [facility]. 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 Fernando in [place] Echo & 2 week holter monitor in August 2023 wnl per patient. PDC appt 11/04; ultrasound within normal limits and normal growth. EFW 57%. No follow-up ultrasound scheduled. Assessment & Plan (11/05/2023 12:32 PM EDT): Patient currently followed by cardiology in [place]. Patient with a history of SVT but has also had cardiac ablation. Patient reports a normal echo and Holter monitor performed in August. Patient asymptomatic today. 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 Anemia 28 weeks hematocrit 29%.: on iron. PDC u/s 30 wk; EFW 57% Growth ultrasound 12/01 EFW 48%. AC 66%. Screening for cervical cancer 10/26/2023 10/26/2023 Overview (10/26/2023): Last Pap smear? Chronic hypertension affecting 10/26/2023 07/25/2024 Overview (12/10/2023): Transfer of care at [address] Cordero in [place] Baseline PEP, 24 Hour urine, HGBA1C, TSH drawn at [facility] ob (29wk); not on medication No meds [...] on hypertensive meds. Blood pressure today 115/67. Hhfor-Xigucfvpa-Vtxax syndrome 10/26/2023 10/26/2023 Maternal anemia in , antepartum 10/26/2023 07/25/2024 Overview (12/02/2023): On iron supplementation. 11/05/2023 HCT 29.1%. 11/18/2023 Rx Accrufer 30 mg bid Encounters Date Type Department Care Team Description 04/19/2025 Results Follow-Up [facility] [address] [place] [phone] Aydin Kirkpatrick MD 04/17/2025 1:40 PM EDT Visit [facility] [address] [address] Aydin Kirkpatrick MD exam (Primary Dx); Acute vaginitis; Atrophic vaginitis; Consultation for female sterilization 04/17/2025 Travel 03/17/2025 Maternal Screening [facility] [address] [place] [address] Ivanna Downing RN 03/09/2025 Maternal Screening [facility] [address] [place] [address] Aracelis Mueller RN 03/06/2025 5:06 AM EDT Anesthesia Event [facility] DEL[facility] [address] [facility] [place] [address] Mami Balbuena MD 03/06/2025 12:04 AM EDT - 03/08/2025 10:40 AM EDT Hospital Encounter [facility] 4B [address] [place] [address] Aydin Kirkpatrick MD Discharge Disposition: Home or Self Care 03/06/2025 Travel 03/06/2025 - 03/06/2025 11:59 PM EDT Hospital Encounter [facility] LABOR AND DELIVERY PROCEDURES [address] [place] [address] Discharge Disposition: Home or Self Care 03/02/2025 9:30 AM EDT Routine [facility] [address] [facility] [address] Kartik Maurice APRN GA: 36w3d 03/02/2025 Travel 02/27/2025 10:50 AM EDT Ancillary Procedure [facility] [address] [address] 36 weeks gestation of ; Chronic hypertension affecting 02/27/2025 9:40 AM EDT Routine [facility] [address] [address] Aydin Kirkpatrick MD GA: 36w0d 02/27/2025 Prep for Surgery [facility] ORDERS ONLY [address] [place] [address] Aydin Kirkpatrick MD 02/27/2025 Travel 02/23/2025 3:15 PM EDT Routine [facility] [address] [facility] [address] [address] Kartik Maurice APRN GA: 35w3d 02/23/2025 2:15 PM EDT Office Visit [facility]ERNAL MEDICINE [address] [facility] [address] [place] [phone] Medhat De Anda MD Chronic hypertension affecting (Primary Dx); Poor growth affecting management of mother in third trimester, single or unspecified fetus 02/23/2025 2:03 PM EDT - 02/23/2025 11:59 PM EDT Hospital Encounter [facility] US PER DIAG CTR [address] [place] [address] Aydin Kirkpatrick MD Poor growth affecting management of mother in third trimester, single or unspecified fetus Discharge Disposition: Home or Self Care 02/23/2025 Travel 02/20/2025 9:50 AM EDT Routine [facility] [address] [facility] [address] [place] [address] Aydin Kirkpatrick MD GA: 35w0d 02/20/2025 Travel 02/18/2025 10:19 PM EDT - 02/19/2025 8:03 AM EDT Hospital Encounter [facility] DELIVERY [address] [place] [address] Aydin Kirkpatrick MD Forester, Corey Blake, MD Discharge Disposition: Home or Self Care 02/18/2025 Travel 02/16/2025 2:15 PM EDT Routine [facility] [address] [address] Kartik Maurice APRN GA: 34w3d 02/16/2025 Travel 02/13/2025 7:05 PM EDT Lab [facility] [address] [place] [address] care, third trimester 02/13/2025 9:30 AM EDT Routine [facility] [address] [address] Aydin Kirkpatrick MD GA: 34w0d 02/13/2025 Travel 02/11/2025 Results Follow-Up [facility] [address] [address] Shania Schwab, TEA ROOM MANAGER 02/09/2025 11:15 AM EDT Routine [facility] [address] [place] [address] Shania Schwab, TEA ROOM MANAGER GA: 33w3d 02/09/2025 Travel from Last 3 Months Immunizations Immunization [...] oz pur e alcohol) [facility] Utilities Answer Date Recorded In the past 12 months has [employer], gas, oil, or water [employer] threatened to shut off services in your [...] and heating? Not hard at all 03/06/2025 [facility] [place] of Occupat ional Health - Occupational Stress [...] things needed for daily living? No 03/06/2025 Meridian Depression Scale Answer Date Recorded Meridian Depression Scale Total 7 04/17/2025 The thought [...] GED or equivalent No 03/06/2025 Preferred Language Mexican 03/06/2025 PHQ-2 Answer Date Recorded Patient Health [...] Pressure 110/72 04/17/2025 1:52 PM EDT Pulse 96 03/08/2025 7:28 AM EDT Temperature 36.5 C (97.7 F) 03/08/2025 7:28 AM EDT Respiratory Rate 18 03/08/2025 7:28 AM EDT Oxygen Saturation 99% 03/08/2025 7:28 AM EDT Inhaled Oxygen Concentration - - Weight 119 kg (263 lb) 04/17/2025 1:52 PM EDT Height 165.1 cm (5' 5 ) 03/06/2025 12:41 AM EDT Body Mass Index 43.77 03/06/2025 12:41 AM EDT Plan of Treatment Upcoming Encounters Date Type Department Care Team (Late st Contact Info) Description 07/24/2025 11:00 AM EST Office Visit [facility] [address] [place] [phone] Aydin Kirkpatrick MD [address] [place] [address] 08/21/2025 11:20 AM EST Office Visit [facility] [address] [facility] [address] [place] [phone] Aydin Kirkpatrick MD [address] [place] [phone] Health Maintenance Due Date Last Done Comments Annual Gynecologic Pelvic and Breast Exam 2000 HPV VACCINES (1 - 3-dose series) 2015 ANNUAL PHYSICAL 10/26/2023 INFLUENZA VACCINE 03/10/2025 05/10/2018 CHLAMYDIA SCREENING 04/17/2026 04/17/2025, 02/13/2025, 12/30/2024, Additional history exists PAP SMEAR 08/17/2027 08/17/2024 [...] Routine 04/17/2025 12:00 AM EDT Acute vaginitis CBC (NO DIFF) Routine 03/08/2025 5:27 AM [...] care, third trimester 35 weeks gestation of [facility] [place] Routine 02/23/2025 2:44 PM EDT Poor growth [...] - PROCEDURE 02/09/2025 SCANNED - PROCEDURE 02/09/2025 LIQUID-BASED PAP SMEAR WITH HPV GENOTYPING IF ASCUS, [facility] (KARAN,COR,MAD) Routine 08/17/2024 3:35 PM EST Essential hypertension , unspecified gestational age OBSTETRIC PANEL Routine 08/17/2024 3:31 PM EST Essential hypertension , unspecified gestational age from Last 3 Months or Most Recently Relevant to Health Maintenance Results * (ABNORMAL) NuSwab VG+, Annabel 6sp [...] 04/17/2025 04/17/2025 Comment:Swab Specimen source ( N[facility]ative [facility] - 04/19/2025 5:10 PM EDT Test(s) 205635- Atopobium vaginae; 707092- BVAB 2; 886273- Megasphaera 1 was developed and its performance characteristics determined by [facility]. It has not been cleared or approved by the Food and Drug Administration. Test(s) 402030-Iobuuwa albicans, EARNESTINE; 726888-Tcirhzk glabrata, EARNESTINE; 911184-Z parapsilosis/tropicalis; 596683-Ufdoobr lusitaniae, EARNESTINE; 393331-Oqbvcmf krusei, EARNESTINE was developed and its performance characteristics determined by [facility]. It has not been cleared or approved by the Food and Drug Administration. Performed at: 01 - [address] [id number] Photographers' Model: Ina Couch MD, Phone: [phone] Aydin Kirkpatrick MD PATHOLOGY/CYTOLOGY ORDERABLES F inal Result [facility] ([facility] [address] [place] [address], [place] [phone] [facility] [address] [place] [address], [place] [phone] * (ABNORMAL) CBC (No Diff) (03/08/2025 5:27 AM EDT) Only the most recent of3 resultswithin the time period is included. WBC 11.01(H) 3.40 - 10.80 10*3/mm3 03/08/2025 6:04 AM EDT [facility] RBC 2.82(L) 3.77 - 5.28 10*6/mm3 03/08/2025 6:04 AM EDT [facility] Hemoglobin 7.2(L) 12.0 - 15.9 g/dL 03/08/2025 6:04 AM EDT [facility] Hematocrit 24.1(L) 34.0 - 46.6 % 03/08/2025 6:04 AM EDT [facility] MCV 85.5 79.0 - 97.0 fL 03/08/2025 6:04 AM EDT [facility] MCH 25.5(L) 26.6 - 33.0 pg 03/08/2025 6:04 AM EDT [facility] MCHC 29.9(L) 31.5 - 35.7 g/dL 03/08/2025 6:04 AM EDT [facility] RDW 15.5(H) 12.3 - 15.4 % 03/08/2025 6:04 AM EDT [facility] RDW-SD 47.4 37.0 - 54.0 fl 03/08/2025 6:04 AM EDT [facility] MPV 11.8 6.0 - 12.0 fL 03/08/2025 6:04 AM EDT [facility] Platelets 213 140 - 450 10*3/mm3 03/08/2025 6:04 AM EDT [facility] Blood Venipuncture / Unknown 03/08/2025 5:27 AM EDT 03/08/2025 5:55 AM EDT us Kelly Patricia TEA ROOM MANAGER LAB BLOOD ORDERABLES Final Result [facility]
[address] [place] [address], [place] [phone] * (ABNORMAL) CBC Auto Differential (03/07/2025 5:07 AM EDT) WBC 9.80 3.40 - 10.80 10*3/mm3 03/07/2025 5:34 AM EDT [facility] RBC 2.90(L) 3.77 - 5.28 10*6/mm3 03/07/2025 5:34 AM EDT [facility] Hemoglobin 7.6(L) 12.0 - 15.9 g/dL 03/07/2025 5:34 AM EDT [facility] Hematocrit 24.7(L) 34.0 - 46.6 % 03/07/2025 5:34 AM EDT [facility] MCV 85.2 79.0 - 97.0 fL 03/07/2025 5:34 AM EDT [facility] MCH 26.2(L) 26.6 - 33.0 pg 03/07/2025 5:34 AM EDT [facility] MCHC 30.8(L) 31.5 - 35.7 g/dL 03/07/2025 5:34 AM EDT [facility] RDW 15.0 12.3 - 15.4 % 03/07/2025 5:34 AM EDT [facility] RDW-SD 46.5 37.0 - 54.0 fl 03/07/2025 5:34 AM EDT [facility] MPV 11.9 6.0 - 12.0 fL 03/07/2025 5:34 AM EDT [facility] Platelets 210 140 - 450 10*3/mm3 03/07/2025 5:34 AM EDT [facility] Neutrophil % 67.5 42.7 - 76.0 % 03/07/2025 5:34 AM EDT [facility] Lymphocyte % 21.3 19.6 - 45.3 % 03/07/2025 5:34 AM EDT [facility] Monocyte % 5.8 5.0 - 12.0 % 03/07/2025 5:34 AM [facility] LAB[facility] Eosinophil % 0.9 0.3 - 6.2 % 03/07[facility]2025 5[facility] Basophil % 0.4 0.0 - 1.5 % 03/07/2025 5:34 AM [facility] LAB[facility] Immature Grans % 4.1(H) 0.0 - 0.5 % 03/07/2025 5:34 AM [facility] LAB[facility] Neutrophils, Absolute 6.61 1.70 - 7.00 10*3/mm3 03/07/2025 5:34 AM [facility] LAB[facility] Lymphocytes, Absolute 2.09 0.70 - 3.10 10*3/mm3 03/07/2025 5:34 AM [facility] LAB[facility] Monocytes, Absolute 0.57 0.10 - 0.90 10*3/mm3 03/07/2025 5:34 AM [facility] LAB[facility] Eosinophils, Absolute 0.09 0.00 - 0.40 10*3/mm3 03/07/2025 5:34 AM [facility] LAB[facility] Basophils, Absolute 0.04 0.00 - 0.20 10*3/mm3 03/07/2025 5:34 AM [facility] Immature Grans, Absolute 0.40(H) 0.00 - 0.05 10*3/mm3 03/07/2025 5:34 AM [facility] LAB[facility] nRBC 0.3(H) 0.0 - 0.2 /100 WBC 03/07/2025 5:34 AM [facility] LAB[facility] Blood Venipuncture / Unknown 03/07/2025 5:07 AM EDT 03/07/2025 5:16 AM EDT us Aydin Kirkpatrick MD LAB BLOOD ORDERABLES Final Resu lt [facility]
[address] [phone], * Tissue Pathology Exam (03/06/2025 5:50 AM EDT) Case Report Surgical Pathology Report Case: [id number] Authorizing Provider: Aydin Kirkpatrick MD Collected: 03/06/2025 05:50 AM Ordering Location: [facility] Received: 03/06/2025 06:11 AM LABOR DELIVERY Pathologist: Shilpa Rascon MD Specimen: Placenta, Placenta, 37 weeks IUGR, hypertension 03/07/2025 11:25 AM EDT [facility] Clinical Information 37 weeks, IUGR, hypertension 03/07/2025 11:25 AM EDT [facility] Final Diagnosis Placenta, vaginal delivery: Mature placental parenchyma with increased perivillous and subchorionic fibrin deposition Three-vessel umbilical cord 03/07/2025 11:25 AM EDT [facility] at 1125 EDT Gross Description [...] spongy parenchyma with no gross lesions identified. Recycling Attendant sections are submitted as follows: 1A-umbilical cord with false knot and membrane roll 9U-qfpn-pidgsffdh disc with subchorionic fibrin 9U-rari-ehedrudmr disc at cord insertion site. LDP 03/07/2025 11:25 AM EDT [facility] Microscopic Description The slides are reviewed and demonstrate histopathologic features supporting the above rendered diagnosis. 03/07/2025 11:25 AM EDT [facility] Tissue Placental structure / Unknown Collection / Unknown 03/06/2025 5:50 AM EDT 03/06/2025 6:11 AM EDT Aydin Kirkpatrick MD PATHOLOGY/CYTOLOGY ORDERABLES F inal Result [facility]
[address] [place] [address], * HC BH AN LABOR EPIDURAL KIT [...] evaluation and timeout performed Prep: Pt Position:sitting Paraffin Machine Operator:cap, gloves, sterile barrier, mask and gown Prep:chlorhexidine [...] 200.0 mg/G Crea 03/06/2025 9:31 AM EDT [facility] Creatinine, Urine 108.2 mg/dL 03/06/2025 9:31 AM EDT [facility] Total Protein, Urine 43.2 mg/dL 03/06/2025 9:31 AM EDT [facility] Urine Urine specimen obtained by clean catch procedure / Unknown Collection / Unknown 03/06/2025 1:19 AM EDT 03/06/2025 1:19 AM EDT us Aydin Kirkpatrick MD URINE ORDERABLES Final Result Performing Organization Address [facility] Co de Phone Number [facility]
[address] [place] [address], [place] [phone] * Treponema pallidum AB w/Reflex RPR (03/06/2025 1:11 AM EDT) Treponemal AB Total Non-Reacti ve Non-React ramya 03/06/2025 1:42 PM EDT [facility] Blood Venipuncture / Unknown 03/06/2025 1:11 AM EDT 03/06/2025 1:11 AM EDT Narrative [facility] - 03/06/2025 1:42 PM EDT Reactive results will reflex RPR testing. us Aydin Kirkpatrick MD LAB BLOOD ORDERABLES Final Resu lt Performing Organization Address [facility]/ZIP Co de Phone Number [facility]
[address] [place] [address], [place] [phone] * (ABNORMAL) Iron Profile w/o Ferritin (03/06/2025 1:11 AM EDT) Iron 54 37 - 145 mcg/dL 03/06/2025 6:36 AM EDT [facility] Iron Saturation (TSAT) 8(L) 20 - 50 % 03/06/2025 6:36 AM EDT [facility] Transferrin 482(H) 200 - 360 mg/dL 03/06/2025 6:36 AM EDT [facility] TIBC 718(H) 298 - 536 mcg/dL 03/06/2025 6:36 AM EDT [facility] Blood Venipuncture / Unknown 03/06/2025 1:11 AM EDT 03/06/2025 2:53 AM EDT us Aydin Kirkpatrick MD LAB BLOOD ORDERABLES Final Resu lt [facility]
[address] [place] [address], * (ABNORMAL) Uric Acid (03/06/2025 1:11 AM EDT) Uric Acid 6.6(H) 2.4 - 5.7 mg/dL 03/06/2025 3:12 AM EDT [facility] Comment:Falsely depressed re sults may occur on samples drawn from patients receiving N-Acetylcysteine (NAC) or Metamizole. Blood Venipuncture / Unknown 03/06/2025 1:11 AM EDT 03/06/2025 2:53 AM EDT us Aydin Kirkpatrick MD LAB BLOOD ORDERABLES Final Resu lt [facility]
[address] [place] [address], [place] [phone] * Lactate Dehydrogenase (03/06/2025 1:11 AM EDT) LDH 187 135 - 214 U/L 03/06/2025 3:12 AM EDT [facility] Blood Venipuncture / Unknown 03/06/2025 1:11 AM EDT 03/06/2025 2:53 AM EDT us Aydin Kirkpatrick MD LAB BLOOD ORDERABLES Final Resu lt Performing Organization Address City/[facility]/ZIP Co de Phone Number [facility]
[address] [place] [address], * (ABNORMAL) Ferritin (03/06/2025 1:11 AM EDT) Ferritin 7.88(L) 13.00 - 150.00 ng/mL 03/06/2025 6:36 AM EDT [facility] Blood Venipuncture / Unknown 03/06/2025 1:11 AM EDT 03/06/2025 2:53 AM EDT Narrative [facility] - 03/06/2025 6:36 AM EDT Results may be falsely decreased if patient taking Biotin. us Aydin Kirkpatrick MD LAB BLOOD ORDERABLES Final Resu lt Performing Organization Address [facility] Co de Phone Number [facility]
[address] [place] [address], [place] [phone] * (ABNORMAL) Comprehensive Metabolic Panel (03/06/2025 1:11 AM EDT) Only the most recent of2 resultswithin the time period is included. Glucose 84 65 - 99 mg/dL 03/06/2025 3:12 AM EDT [facility] BUN 8.9 6.0 - 20.0 mg/dL 03/06/2025 3:12 AM EDT [facility] Creatinine 0.87 0.57 - 1.00 mg/dL 03/06/2025 3:12 AM EDT [facility] Sodium 137 136 - 145 mmol/L 03/06/2025 3:12 AM EDT [facility] Potassium 4.0 3.5 - 5.2 mmol/L 03/06/2025 3:12 AM EDT [facility] Chloride 106 98 - 107 mmol/L 03/06/2025 3:12 AM EDT [facility] CO2 18.4(L) 22.0 - 29.0 mmol/L 03/06/2025 3:12 AM EDT [facility] Calcium 8.7 8.6 - 10.5 mg/dL 03/06/2025 3:12 AM T [facility] Total Protein 6.3 6.0 - 8.5 g/dL 03/06/2025 3:12 AM EDT [facility] Albumin 3.4(L) 3.5 - 5.2 g/dL 03/06/2025 3:12 AM [facility] LAB[facility] ALT (SGPT) 22 1 - 33 U/L 03/06/2025 3:12 AM T [facility] AST (SGOT) 16 1 - 32 U/L 03/06/2025 3:12 AM T [facility] Alkaline Phosphatase 113 39 - 117 U/L 03/06/2025 3:12 AM T [facility] Total Bilirubin 0.7 0.0 - 1.2 mg/dL 03/06/2025 3:12 AM [facility] LAB[facility] Globulin 2.9 gm/dL 03/06/2025 3:12 AM T [facility] Comment:Calculated Result A/G Ratio 1.2 g/dL 03/06/2025 3:12 AM T [facility] BUN/Creatinine Ratio 10.2 7.0 - 25.0 03/06/2025 3:12 AM [facility] Anion Gap 12.6 5.0 - 15.0 mmol/L 03/06/2025 3:12 AM [facility] eGFR 95.6 >60.0 mL/min/1.7 3 03/06/2025 3:12 AM [facility] Blood Venipuncture / Unknown 03/06/2025 1:11 AM EDT 03/06/2025 2:53 AM EDT [facility] - 03/06/2025 3:12 AM EDT GFR [...] ORDERABLES Final Resu lt Performing Organization Address City/[facility]/ZIP Co de Phone Number [facility]
[address] [place] [address], * Type & Screen (03/06/2025 1:03 AM EDT) Only the most recent of2 resultswithin the time period is included. ABO Type A 03/06/2025 1:37 AM EDT [facility] RH type Positive 03/06/2025 1:37 AM EDT [facility] Antibody Screen Negative 03/06/2025 1:37 AM EDT [facility] T&S Expiration Date 03/09/2025 11:59:59 PM 03/06/2025 1:37 AM EDT [facility] Blood Venipuncture / Unknown 03/06/2025 1:03 AM EDT 03/06/2025 1:03 AM EDT us Aydin Kirkpatrick MD BLOOD BANK TEST ORDERABLES Edit ed Result - Final Performing Organization Address [facility] Co de Phone Number [facility]
[address] [place] [address], * POC Urinalysis Dipstick (03/02/2025 9:58 AM EDT) Only the most recent of3 resultswithin the time period is included. Glucose, UA Negative Negative mg/dL [facility] Protein, POC Negative Negative mg/dL [facility] Urine 03/02/2025 9:58 AM EDT us Kartik Patrick Kaylene TEA ROOM MANAGER POINT OF CARE TEST O RDERABLES Final Result [facility]
[address] [place] [address], [place] [phone] * Procedure Scanned (03/02/2025) Sheilarosa Patrick Maurice TEA ROOM MANAGER PROCEDURE/MINOR SURG ICAL ORDERABLES Final Result * US Biophysical Profile;With Non-Stress Testing (02/27/2025 11:10 AM EDT) Anatomical Region Laterality Modality Body Ultrasound 02/27/2025 11:5 2 AM EDT Narrative 02/27/2025 11:12 AM EDT PAT NAME: LISA RILEY MED REC#: [id number] DA: 2000 PAT GEND: F PAT TYPE: O EXAM JAYSON: [id number] REF PHYS AYDIN KIRKPATRICK Indication ======== Non [...] of testing for the condition being monitored. [place] Supervisor: RT Kyle Pringle, [facility] Physician: Aydin Kirkpatrick MD Electronically signed by: Aydin Kirkpatrick MD at: 11:12 Procedure Note Aydin Kirkpatrick MD - 02/27/2025 PAT NAME: LISA RILEY [facility] REC#: [id number] DA: 2000 PAT GEND: F PAT TYPE: O EXAM JAYSON: [id number] REF PHYS AYDIN KIRKPATRICK Indication ======== Non reactive NST; Morbid obesity BMI 45 Comparison Studies The findings of this study are compared to the prior ultrasound studydated 02/23/25 Method ======= Voluson E6, Transabdominal ultrasound examination. View: Sufficient ========= Hernandez . Number of fetuses: 1 Dating ====== Cycle:irregular cycle Method of dating:based on stated CONG GA by prior [id number] w + 0 d CONG by prior assessment:03/27/2025 Previous Ultrasound on:07/25/2024 Type of prior assessment:GS mean Previous dating:based on stated CONG, selected on 02/03/2025 Agreed CONG of previous datin03/27/2025 Assigned:based on stated CONG, selected on 02/27/2025 Assigned GA36 w + 0 d Assigned CONG:03/27/2025 [id number] d General Evaluation Cardiac activity present. FHR [...] schedule of testing for the condition beingmonitored. Cranberry Bog Supervisor: Annamaria Eli RT Kyle, [facility] Physician: Aydin Kirkpatrick MD Electronically signed by: Aydin Kirkpatrick MD at: 11:12 us Aydin Kirkpatrick MD IMG US ORDERABLES Final Result * POC Protein, Urine, Qualitative, Dipstick (02/27/2025 10:27 AM EDT) Only the most recent of4 resultswithin the time period is included. Protein, POC Negative Negative mg/dL [facility] Lot Number 0 [facility] Expiration Date 0 [facility] Urine 02/27/2025 10:2 7 AM EDT us Aydin Kirkpatrick MD POINT OF CARE TEST ORDERABLES F inal Result Performing Organization Address City/[facility]/ZIP Co de Phone Number [facility]
[address] [place] [address], [place] [phone] * POC Glucose, Urine, Qualitative, Dipstick (02/27/2025 10:27 AM EDT) Only the most recent of4 resultswithin the time period is included. Glucose, UA Negative Negative mg/dL [facility] Urine 02/27/2025 10:2 7 AM EDT us Aydin Kirkpatrick MD POINT OF CARE TEST ORDERABLES F inal Result Performing Organization Address [facility] Co de Phone Number [facility]
[address] [address], [place] [phone] * Procedure Scanned (02/27/2025) us Aydin Kirkpatrick MD PROCEDURE/MINOR SURGICAL ORDERA BLES Final Result * [facility] (02/23/2025 2:44 PM EDT) Anatomical Region Laterality Modality Ultrasound 02/23/2025 2:19 PM EDT Narrative 02/23/2025 2:48 PM EDT PAT NAME: LISA RILEY MED REC#: [id number] DA: 2000 PAT GEND: F PAT TYPE: O EXAM JAYSON: [id number] REF PHYS AYDIN KIRKPATRICK Comparison Studies The findings of this study are compared to the prior ultrasound study dated 01/25/25. Patient Status Outpatient Indication ======== contractions. CHTN. Chronic proteinuria. Maternal Davina Paz. Hx PTD 35 wk - preeclampsia. Morbid [...] EFW (oz) 11 oz EFW by: Hadlock (QMN-BQ-VR-FL) Extended Cav. septi pel. tr 5.9 mm [...] Normal Heart / Thorax 3-vessel view: Normal 9-qpwmnl-zlqxwjh view: normal Stomach: Appears normal Kidneys: Appears [...] Recommend 37 week delivery. Coding ======= Description: 96941-03 Follow Up Ultrasound Description: 67005-33 BPP without NST Description: 39661-34 Doppler Umbilical Artery Cranberry Bog Supervisor: Destini Hall RDMS Physician: Medhat De Anda MD, FACOG Electronically signed by: Medhat De Anda MD, FACOG at: 14:48 Procedure Note Medhat De Anda MD - 02/23/2025 PAT NAME: LISA RILEY [facility] REC#: [id number] DA: 2000 PAT GEND: F PAT TYPE: O EXAM JAYSON: [id number] REF PHYS AYDIN KIRKPATRICK Comparison Studies The findings of this study are compared to the prior ultrasound studydated 01/25/25. Patient Status Outpatient Indication ======== contractions. CHTN. Chronic proteinuria. Maternal Ghosh ParkinsonWhite. Hx PTD 35 wk - preeclampsia. Morbid obesity BMI 47 Maternal Assessment Ssjpwl128 cm Ieemge735 kg Weight (lb)273 lb BMI47.19 kg/m Method ======= Transabdominal ultrasound examination. View: Limited by patient bodyhabitus ========= Hernandez . Number of fetuses: 1 Dating ====== Cycle:irregular cycle GA by prior [id number] w + 3 d CONG by prior [...] GA35 w + 3 d Assigned CONG:03/27/2025 qossno638 d Biometry Standard BPD85.5 mm 34w 3d 27% Hadlock MGA579.7 mm 36w 6d 79% Van HC315.5 mm 35w 3d 18% Hadlock Cerebellum tr45.4 mm 34w 6d 27% Hill AC313.1 mm 35w 2d 53% Hadlock Femur67.2 mm 34w 4d 22% Hadlock Tgxuucn70.2 mm 34w 2d 40% Van HC / AC1.01 EFW2,567 g 34w 6d 37% Hadlock EFW (lb)5 lb EFW (oz)11 oz EFW by:Hadlock (VQN-NX-WF-FL) Extended Cav. septi pel. tr5.9 mm CM6.7 mm 26% Nicolaides Head / Face / Neck Cephalic index0.77 14% Nicolaides Extremities / Bony Struc FL / BPD0.79 FL / HC0.21 FL / AC0.21 Other Structures ISI344 bpm General Evaluation Cardiac activity present. FHR 177 bpm. movements present. Presentation cephalic. Placenta Placental site: posterior, fundal. Amniotic fluid Amount of AF: normal. MVP 4.8 cm. ELIZABETH 13.6 cm. Q1 3.2 cm,Q2 4.8 cm, Q3 3.4 cm, Q4 2.3 cm. Anatomy Cranium:Normal Cavum septi pellucidi:Normal Cerebellum:Normal Cisterna magna:Normal 4-chamber view:Appears normal RVOT view:Normal LVOT view:Normal Heart / Thorax 3-vessel view:Normal 2-mboacs-rgatoqq view:normal Stomach:Appears normal Kidneys:Appears normal Bladder:Appears normal [...] indicated. Recommend 37 week delivery. Coding ======= Description:27107-55 Follow Up Ultrasound Description:98979-84 BPP without NST Description:53294-66 Doppler Umbilical Artery Cranberry Bog Supervisor: Destini Hall RDMS Physician: Medhat De Anda [...] Streptococcus isolated SEAN 02/16/2025 10:43 AM EDT [facility] Swab Rectum and vagina, CS / Unknown Collection / Unknown 02/13/2025 6:55 PM EDT 02/13/2025 6:55 PM EDT Aydin Kirkpatrick MD MICROBIOLOGY - GENERAL ORDERABL ES Final Result [facility]
[address] [place] [address], * (ABNORMAL) Protein, Urine, 24 Hour - Urine, Clean Catch (02/13/2025 9:47 AM EDT) Total Protein, Urine 16.3 mg/dL [facility] Protein, 24H Urine 211.9(H) 0.0 - 150.0 mg/24hours [facility] 24 Hour Urine Urine specimen obtained by clean catch procedure / Unknown 02/13/2025 9:47 AM EDT 02/13/2025 Narrative [facility]) - 02/14/2025 3:35 AM EDT Performed at: 01 - [facility] [address] [place], [place] [id number] Photographers' Model: Fabian Cabrera MD, Phone: [phone] Arturo Feliz MD URINE ORDERABLES Final Res ult Performing Organization Address City/[facility]/ZIP Co de Phone Number [facility] [address] [place] [address], [place] [phone] [facility] [address] [place] [address], [place] [phone] * Procedure Scanned (02/13/2025) us Aydin Kirkpatrick MD PROCEDURE/MINOR SURGICAL ORDERA BLES Final Result * Chlamydia trachomatis, Neisseria gonorrhoeae, PCR w/ confirmation - Swab, Vagina (02/13/2025 12:00 AM EDT) Chlamydia trachomatis, EARNESTINE Negative Negative [facility] Neisseria gonorrhoeae, EARNESTINE Negative Negative [facility] Swab Vaginal structure / Unknown 02/13/2025 02/13/2025 Comment:Swab Release to denice e Narrative [facility] ([facility]BUL[facility]ORY) - 02/14/2025 8:09 PM EDT Performed at: 01 - [address] [id number] Photographers' Model: Alice Soriano MD, Phone: [phone] Aydin Kirkpatrick MD MICROBIOLOGY - GENERAL ORDERABL ES Final Result [facility] ([facility]BUL[facility]ORY) [address] [place] [address], [facility] [address] [place] [address], * (ABNORMAL) AlP+ALT+AST+Creat+LD+TBili+.. (02/09/2025 12:39 PM EDT) [...] 12:3 9 PM EDT 02/09/2025 Narrative [facility] (AMBULATORY) - 02/10/2025 3:35 AM EDT Performed at: [address] [place] [id number] Photographers' Model: Edgar Mccartney PhD, Phone: [phone] Shania Schwab APRN LAB BLOOD ORDERABLES Final R esult [facility] (AMBULATORY) [address] [place] [address], [facility] [address] [place] [address], * Bile Acids, Total (02/09/2025 12:39 PM EDT) [facility] Bile Acids Total 4.2 0.0 - 10.0 umol/L [facility] Blood 02/09/2025 12:3 9 PM EDT 02/09/2025 Narrative [facility] - 02/11/2025 4:36 PM EDT Performed at: - [address] [id number] Photographers' Model: Alice Soriano MD, Phone: [phone] Shania Schwab APRN LAB BLOOD ORDERABLES Final R esult [facility] [address] [place] [address], [facility] [address] [place] [address], * (ABNORMAL) Bacterial Vaginosis, EARNESTINE - Swab, Cervix (02/09/2025 12:00 AM EDT) Atopobium Vaginae Low - 0 Score [facility] BVAB 2 Low - 0 Score [facility] Megasphaera 1 High - 2(A) [facility] Comment: Calculate total score [...] / Unknown 02/09/2025 02/09/2025 Comment:Swab Release to [facility] e Narrative [facility] - 02/12/2025 5:08 PM EDT Test(s) 303092- Atopobium vaginae; 624108- BVAB 2; 909228- Megasphaera 1 was developed and its performance characteristics determined by [facility]. It has not been cleared or approved by the Food and Drug Administration. Performed at: [address] [id number] Photographers' Model: Ina Couch MD, Phone: [phone] Shania Schwab APRN MICROBIOLOGY - GENERAL ORDER CATARINO Final Result Performing Organization Address [facility]/ZIP Co de Phone Number [facility] (AMBULATORY) [address] [place] [address], [facility] [address] [place] [address], * Procedure Scanned (02/09/2025) [facility] Onbase PROCEDURE/MINOR SURGICAL ORDE RABLES Final Result * Procedure Scanned (02/09/2025) Shania Schwab APRN PROCEDURE/MINOR SURGICAL ORD ERABLES Final Result * Urine Culture - Urine, Urine, Clean Catch (02/09/2025 12:00 AM EDT) Pathologist [facility] Urine Culture Final report [facility] Result 1 Comment [facility] Comment: Mixed urogenital elmer 10,000-25,000 colony forming units per mL Urine Urine specimen obtained by clean catch procedure / Unknown 02/09/2025 02/09/2025 Comment:Urine Release to [facility] Tatyana [facility] - 02/11/2025 3:35 AM EDT Performed at: [facility] [id number] Photographers' Model: Edgar Mccartney PhD, Phone: [phone] Shania Schwab APRN MICROBIOLOGY - GENERAL ORDER CATARINO Final Result Performing Organization Address City/[facility]/ZIP Co de Phone Number [facility] (AMBULATORY) [address] [place] [address], [facility] [address] [place] [address], * LIQUID-BASED PAP SMEAR WITH HPV GENOTYPING IF ASCUS (KARAN,COR,MAD) (08/17/2024 3:35 PM EST) Pathologist [facility] Reference Lab Report [facility] [address] [place] [address] or [phone] Luis Boyle M.D., Mine Wedge Sawyer PATIENT NAME LABORATORY NO. 127 LISA RILEY. [id number] AGE SEX SSN CLIENT REF # [facility] 23 2000 F [id number] [address] [facility] [address] REQUESTING Benoit [place] [address] ARTURO FELIZ DATE COLLECTED DATE RECEIVED DATE [...] HISTORY: Essential hypertension , unspecified gestational age [employer]ACE [employer] SPORTS BOOK WRITER: LUIS ANTONIO HOOKER (ASCP) CPT CODES: 59402 08/19/2024 10:47 AM EST [facility] ThinPrep Vial Cervix uteri structure / Unknown Collection / Unknown 08/17/2024 3:35 PM EST 08/17/2024 3:36 PM EST Arturo Feliz MD PATHOLOGY/CYTOLOGY ORDERAB LES Final Result [facility]
[address] [place] [address], * (ABNORMAL) Obstetric Panel (08/17/2024 3:31 PM [...] AM EST Performed at: 01 - [facility] [address] [place], [place] [id number] Photographers' Model: Edgar Mccartney PhD, Phone: [phone] us Arturo Feliz MD LAB BLOOD ORDERABLES Final Result [facility]) [address] [place] [address], [place] [phone] [facility] [address] [place] [address], from Last 3 Months or Most Recently Relevant to Health [place] [address] [facility] HEALTH BENEFIT [employer] Advance Directives * CPR (Attempt to Resuscitate) [...] Of Support Discussed With: Patient Care Teams Cooking Chef Relationship Specialty Start Date End Date Jefe Schwartz MD [address] [facility] [address] [address] PCP - General Adolescent Medicine 12/14/23
--- OUTSIDE RECORDS SUMMARY | 2025-05-11 07:42 | XMS_ITS | Encounter Summary ---
Author Organization Healthcare Address [address] [place] [address] Care Team Providers Care Epic Professional Name Role Phone System, Provider Not In MD Primary Care Provider Unavailable Reason for Referral * Consultation (Routine) - Closed Specialty Diagnoses / Procedures Referred By Jeanne roberts Referred To Contact Nephrology Diagnoses Proteinuria complicating , unspecified trimester Izaiah Mcdaniels MD [address] [facility] [address] [place] [address] Phone: tel: fax: [facility] Nephrology, Bone & Mineral Metabolism [address] [facility], [address] [place] [address] Phone: tel: fax: Referral ID Status Reason Start Date Expiration Date V isits Requested Visits Authorized [id number] Closed Specialty Services Required 09/27/2024 03/29/2026 1 1 Encounter Details Date Type Department Care Team (Late st Contact Info) Description 09/27/2024 Community Orders Community Practice [address] [place] [address] Izaiah Mcdaniels MD [address] [place] [address] Proteinuria complicating , unspecified trimester (Primary Dx) [...] PM EST Office Visit [facility] [address] [place] [phone] Duke White MD [address] [place] [address] Scheduled Referrals Name Type Priority Associated Diagnoses Orde r Schedule Ambulatory referral to Nephrology Outpatient Referral Routine Proteinuria complicating , unspecified trimester Expected: 09/27/2024 (Approximate), Expires: 03/27/2026 documented as of this encounter Visit Diagnoses Diagnosis Proteinuria complicating , unspecified trimester- Primary documented in this encounter Care Teams Epic Professional Relationship Specialty Start Date End Date System, Provider Not In, [place] [address] PCP - General Family Medicine 09/29/24 documented as of this encounter
--- OUTSIDE RECORDS SUMMARY | 2025-05-11 07:42 | XMS_ITS | Encounter Summary ---
Author Organization [facility] Address [address] [place] [address] Care Team Providers Care Law Librarian Name Role Phone Jefe Schwartz MD Primary Care Provider [phone] Encounter Details Date Type Department Care Team (Late st Contact Info) Description 03/17/2025 Maternal Screening [facility] [address] [place] [phone] Ivanna Downing, RN Social History Tobacco Use Types Packs/Day Years Used Date Smoking Tobacco: Former Cigarettes Q uit: 01/2024 Passive Smoke Exposure: Past Smokeless Tobacco: Never Comments:Vape. Alcohol Use Standard Drinks/Week Comments Never 0 (1 standard drink = 0.6 oz pur e alcohol) [facility] Utilities Answer Date Recorded In the past 12 months has [employer] electric, gas, oil, or water company [...] and heating? Not hard at all 03/06/2025 [facility] [place] of Occupat ional Health - Occupational Stress [...] things needed for daily living? No 03/06/2025 [place] Depression Scale Answer Date Recorded [place] Depression Scale Total 2 03/17/2025 The thought [...] GED or equivalent No 03/06/2025 Preferred Language Icelandic 03/06/2025 PHQ-2 Answer Date Recorded Patient Health [...] Flowsheet Row Responses Facility patient discharged from? [facility] Attempt successful? Yes Call start time 926 [...] harming myself has occurred to me. 0 [place] Depression Scale Total 2 Did any of [...] Description 07/24/2025 11:00 AM EST Office Visit [facility] [address] [phone] Aydin Crowe MD [address] [place] [address] 08/21/2025 11:20 AM EST Office Visit [facility] [address] [phone] Aydin Crowe MD [address] [place] [address] documented as of this encounter Visit Diagnoses Not on filedocumented in this encounter Care Teams Law Librarian Relationship Specialty Start Date End Date Jefe Schwartz MD [address] [facility] [address] [facility] [address] [place] [address] PCP - General Adolescent Medicine 12/14/23 documented as of this encounter
[2025-05-11 08:02] LABS: Hematocrit 37.0 % (37.0-47.0); Hemoglobin 11.6 g/dL (12.2-16.2); Immature Granulocytes % 1.1 %; Mean Corpuscular HGB Conc 31.4 g/dL (31.8-35.4); Mean Corpuscular Hemoglobin 26.0 pg (27.0-31.2); Mean Corpuscular Volume 83.0 fl (81-99); Nucleated Red Blood Cells % 0 %; Platelet Count 300 K/mm3 (142-424); Red Blood Count 4.46 M/mm3 (4.20-5.40); Red Cell Distribution Width-SD 48.3 fL; White Blood Count 8.5 K/mm3 (4.8-10.8)
[2025-05-11 09:41] LABS: Iron 80 ug/dL (37-170)
[2025-05-11 09:51] LABS: Total Iron Binding Capacity 310 ug/dL (265-497)
[2025-05-11 10:20] LABS: Ferritin 58.9 ng/ml (6.24-137)
== END 2025-05-11 23:59 | disposition home or self-care (01) ==
LOC: LAB 07:39
PROVIDERS: PCP Nurse Practitioner Family; Visit Provider Internal Medicine Medical Oncology
DX: D50.9 Iron deficiency anemia, unspecified (principal)
CPT/HCPCS: 36415; 82728; 83540; 83550; 85025

== ENCOUNTER 2025-05-26 15:04 | Outpatient (CLI) | payer OTHER, SELFPAY ==
--- OUTSIDE RECORDS SUMMARY | 2025-04-17 13:40 | XMS_ITS | Encounter Summary ---
Author Organization [facility] Address [address] [place] [address] Care Team Providers Care Supervisory Clerk Name Role Phone Jefe Schwartz MD Primary Care Provider [phone] Reason for Visit * Reason Comments Care Encounter Details Date Type Department Care Team (Late st Contact Info) Description 04/17/2025 1:40 PM EDT Visit [facility] OBGYN [address] [phone] Aydin Crowe MD [address] [facility] [address] [place] [address] exam (Primary Dx); Acute vaginitis; Atrophic vaginitis; Consultation for female sterilization Social History Tobacco Use Types Packs/Day Years Used Date Smoking Tobacco: Former Cigarettes Q uit: 01/2024 Passive Smoke Exposure: Past Smokeless Tobacco: Never Tobacco Cessation:Counseling Given: Not Answered Comments:Vape. Alcohol Use Standard Drinks/Week Comments Never 0 (1 standard drink = 0.6 oz pur e alcohol) [facility] Utilities Answer Date Recorded In the past 12 months has [employer], gas, oil, or water company threatened to [...] and heating? Not hard at all 03/06/2025 [facility] - Occupational Stress Questionnaire Answer Date [...] things needed for daily living? No 03/06/2025 [place] Depression Scale Answer Date Recorded [place] Depression Scale Total 7 04/17/2025 The thought [...] Information for the patient's : Freddy Luna [[id number]] 03/06/2025 male Freddy Luna 2930 g (6 [...] nursing note reviewed. Exam conducted with a systems mgr present. Constitutional: Appearance: Normal appearance. She is [...] Desires tubal We discussed other options for longterm contraception including IUD, Nexplanon, Depo, and OCP's; [...] Description 07/24/2025 11:00 AM EST Office Visit [facility] OBGYN [address] [facility] [place] [address] [place] [phone] Aydin Crowe MD 1700 [facility] [address] [place] [phone] 08/21/2025 11:20 AM EST Office Visit [facility] OBGYN 1700 [facility] [place] [address] [place] [phone] Aydin Crowe MD 1700 [facility] [address] [place] [phone] documented as of this encounter Procedures Procedure [...] 04/17/2025 04/17/2025 Comment:Swab Specimen source ( N[facility]ative [facility] - 04/19/2025 5:10 PM EDT Test(s) 887364- Atopobium vaginae; 534894- BVAB 2; 931574- Megasphaera 1 was developed and its performance characteristics determined by [facility]. It has not been cleared or approved by the Food and Drug Administration. Test(s) 218599-Saumvjx albicans, EARNESTINE; 387425-Aivgoee glabrata, EARNESTINE; 486287-A parapsilosis/tropicalis; 322868-Rvfdapj lusitaniae, EARNESTINE; 926093-Oxdhele krusei, EARNESTINE was developed and its performance characteristics determined by [facility]. It has not been cleared or approved by the Food and Drug Administration. Performed at: [address] [id number] Medical Advisor: Ina Couch MD, Phone: [phone] Aydin Crowe MD PATHOLOGY/CYTOLOGY ORDERABLES F inal Result [facility] [address] [place] [address], [place] [phone] [facility] [address] [place] [address], [place] [phone] documented in this encounter Visit Diagnoses Diagnosis exam- Primary Acute vaginitis Unspecified vaginitis and vulvovaginitis Atrophic vaginitis Postmenopausal atrophic vaginitis Consultation for female sterilization documented in this encounter Care Teams Supervisory Clerk Relationship Specialty Start Date End Date Jefe Schwartz MD [address] [place] [address] PCP - General Adolescent Medicine 12/14/23 documented as of this encounter
--- NOTE | 2025-05-26 15:07 | XR_ITS ---
FINAL REPORT CLINICAL HISTORY: LT FOOT PAIN , c/o pain lateral rolled foot x1 month hx of previous fracture COMPARISON: 07/24/2016 FINDINGS: Three views of the left foot show no evidence of acute displaced fracture or dislocation of the visualized bony architecture. Moderate calcaneal spurring is noted. The joint spaces appear normal. IMPRESSION: No acute abnormality of the left foot. Reviewed, Interpreted and Dictated by Bruno Epperson MD Transcribed by Mariam Cordero Authenticated and [facility]
--- OUTSIDE RECORDS SUMMARY | 2025-05-26 15:07 | XMS_ITS | Encounter Summary ---
[facility] Organization [facility] Address [address] [place] [address] Care Team Providers Care District Or District Office Director Name Role Phone Jefe Schwartz MD Primary Care Provider [phone] Encounter Details Date Type Department Care Team (Late st Contact Info) Description 12/15/2024 Results Follow-Up [facility] [address] [facility] [address] [place] [phone] Izaiah Mcdaniels MD Social History Tobacco Use Types Packs/Day Years Used Date Smoking Tobacco: Former Cigarettes Q uit: 01/2024 Smokeless Tobacco: Never Comments:Vape. Alcohol Use Standard Drinks/Week Comments Never 0 (1 standard drink = 0.6 oz pur e alcohol) [facility] Utilities Answer Date Recorded In the past 12 months has [employer] electric, gas, oil, or water company [...] and heating? Not hard at all 12/12/2023 [facility] [place] of Occupat ional Health - [...] things needed for daily living? No 12/12/2023 [place] Depression Scale Answer Date Recorded [place] Depression Scale Total 11 02/23/2024 The thought of harming myself has occurred to me . Unrecognized value 02/23/2024 Abuse Screen Answer Date Recorded [...] GED or equivalent No 12/12/2023 Preferred Language Jamaican 12/12/2023 PHQ-2 Answer Date Recorded Retired PHQ-9: [...] Office Visit [facility] [address] [facility] [address] [place] [phone] Aydin Crowe MD [address] [place] [address] 08/21/2025 11:20 AM EST Office Visit [facility] [address] [facility] [address] [place] [phone] Aydin Crowe MD [address] [place] [address] documented as of this encounter Visit Diagnoses Not on filedocumented in this encounter Care Teams District Or District Office Director Relationship Specialty Start Date End Date Jefe Schwartz MD 1210 [facility] [address] [place] [address] PCP - General Adolescent Medicine 12/14/23 documented as of this encounter
--- OUTSIDE RECORDS SUMMARY | 2025-05-26 15:07 | XMS_ITS | Encounter Summary ---
Author Organization [facility] Address [address] [place] [id number] Care Team Providers Care Production Support Analyst Name Role Phone Jefe Schwartz MD Primary Care Provider [phone] Encounter Details Date Type Department Care Team (Late st Contact Info) Description 11/25/2024 Results Follow-Up [facility] [address] [place] [address] Izaiah Mcdaniels MD Social History Tobacco Use Types Packs/Day Years Used Date Smoking Tobacco: Former Cigarettes Q uit: 01/2024 Smokeless Tobacco: Never Comments:Vape. Alcohol Use Standard Drinks/Week Comments Never 0 (1 standard drink = 0.6 oz pur e alcohol) [facility] Utilities Answer Date Recorded In the past 12 months has [employer] electric, gas, oil, or water company threatened [...] and heating? Not hard at all 12/12/2023 [facility] [place] of Occupat ional Health - Occupational Stress [...] things needed for daily living? No 12/12/2023 [place] Depression Scale Answer Date Recorded [place] Depression Scale Total 11 02/23/2024 The thought [...] GED or equivalent No 12/12/2023 Preferred Language Italian 12/12/2023 PHQ-2 Answer Date Recorded Retired PHQ-9: [...] Description 07/24/2025 11:00 AM EST Office Visit [facility] OBGYN [address] [phone] Aydin Crowe MD [address] [address] 08/21/2025 11:20 AM EST Office Visit [facility] [address] [phone] Aydin Crowe MD [facility] [address] [address] documented as of this encounter Visit Diagnoses Not on filedocumented in this encounter Care Teams Production Support Analyst Relationship Specialty Start Date End Date Jefe Schwartz MD 1210 [facility] [address] [place] [address] PCP - General Adolescent Medicine 12/14/23 documented as of this encounter
--- OUTSIDE RECORDS SUMMARY | 2025-05-26 15:07 | XMS_ITS | Referral Summary ---
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
--- OUTSIDE RECORDS SUMMARY | 2025-05-26 15:07 | XMS_ITS | Encounter Summary ---
Author Organization [facility] Address [address] [place] [address] Care Team Providers Care Time Analysis Clerk Name Role Phone Jefe Schwartz MD Primary Care Provider [phone] Encounter Details Date Type Department Care Team (Late st Contact Info) Description 04/19/2025 Results Follow-Up [facility] [address] [facility] [address] [place] [phone] Aydin Crowe MD 1700 [facility] [address] [place] [address] Social History Tobacco Use Types Packs/Day Years Used Date Smoking Tobacco: Former Cigarettes Q uit: 01/2024 Passive Smoke Exposure: Past Smokeless Tobacco: Never Comments:Vape. Alcohol Use Standard Drinks/Week Comments Never 0 (1 standard drink = 0.6 oz pur e alcohol) [facility] Utilities Answer Date Recorded In the past 12 months has [employer], gas, oil, or water [employer] threatened to shut off services in your [...] and heating? Not hard at all 03/06/2025 [facility] - Occupational Stress Questionnaire Answer [...] things needed for daily living? No 03/06/2025 [place] Depression Scale Answer Date Recorded [place] Depression Scale Total 7 04/17/2025 The thought [...] GED or equivalent No 03/06/2025 Preferred Language Greek 03/06/2025 PHQ-2 Answer Date Recorded Patient Health [...] Description 07/24/2025 11:00 AM EST Office Visit [facility] [address] [phone] Aydin Crowe MD [address] [address] 08/21/2025 11:20 AM EST Office Visit [facility] [address] [phone] Aydin Crowe MD [address] [address] documented as of this encounter Visit Diagnoses Not on filedocumented in this encounter Care Teams Time Analysis Clerk Relationship Specialty Start Date End Date Jefe Schwartz MD [facility] [place] [address] [address] [place] [address] PCP - General Adolescent Medicine 12/14/23 documented as of this encounter
--- OUTSIDE RECORDS SUMMARY | 2025-05-26 15:07 | XMS_ITS | Encounter Summary ---
Author Organization [employer] ([place], [place], [place], [place]) Address [address] [place] [address] Care Team Providers Care Senior Engineering Manager Name Role Phone Unavailable Primary Care Provider Unavailabl e Encounter Details Date Type Department Care Team (Late st Contact Info) Description 10/15/2018 Transcribed Document [facility] [place] Family Medicine [address] [place] [address] ProviderFeroz MD [address] [place] [place], [place] [address] Social History Tobacco Use Types Packs/Day Years [...] - Feroz ProviderMD - 10/15/2018 4:42 PM EQUIPMENT INSPECTOR Nursing Discharge Summary Entered On: 10/15/2018 16:43 EST Performed On: 10/15/2018 16:42 EST by RYAN QUINTERO service station equipment mechanic Documentation Patient Disposition, General : Discharge Discharge To : Home with ambulatory/outpatient follow-up Mode Of Departure, General Discharge : Private vehicle Accompanied By, Discharge : Grandparent IV Discontinued : Yes Personal Belongings With Patient : Yes Teaching Method : Demonstration, Explanation Teaching Evaluation : Returns demonstration, Verbalizes understanding RYAN QUINTERO RN - 10/15/2018 16:42 EST Electronically signed by Kateryna [facility] Conversion Freight Caller Cerner at 11/25/2022 5:03 PM CDT documented in this encounter Plan of Treatment Not on file documented as of this encounter Visit Diagnoses Not on filedocumented in this encounter
--- OUTSIDE RECORDS SUMMARY | 2025-05-26 15:07 | XMS_ITS | Encounter Summary ---
Author Organization [employer] ([place], [place], [place], [place]) Address [address] [place] [address] Care Team Providers Care Soaking Pits Supervisor Name Role Phone Unavailable Primary Care Provider Unavailabl e Encounter Details Date Type Department Care Team (Late st Contact Info) Description 10/15/2018 Transcribed Document [facility] [place] Family Medicine [address] [place] [address] ProviderFeroz MD [address] [place], [place] [address] Social History Tobacco Use Types Packs/Day Years [...] - Feroz ProviderMD - 10/15/2018 7:32 AM BICYCLE ASSEMBLER Pre Procedure Adult Entered On: 10/15/2018 7:38 EST Performed On: 10/15/2018 7:32 EST by DILMA WHELAN RN Height and Weight, Clinical Dosing Height Source : Stated Height Entry Format : Lyman Height, Feet : 0 ft(Converted to: 0 cm, 0 Inch) Height, Inches : 65 Inch(Converted to: 5 ft 5 Inch, 165.10 cm) Clinical Height : 165.1 cm Weight Source : Standing scale Weight Entry Format : Lyman Clinical Dosing Weight : 103.64 kg Weight, Pounds : 228 lb Body Surface Area (BSA) : 2.09 m2 Body Mass Index : 38 kg/m2 (HI) [place] Body Weight : 57 kg DILMA WHELAN [...] Emergency Contact #1 : Aravind kohler - [phone] Emergency Contact #1 Phone Number : - Emergency Contact #1 Relationship : - Emergency Contact #2 : - Emergency Contact #2 Phone Number : - Emergency Contact #2 Relationship : - Primary Language : Mozambican Communication Barrier : None DILMA WHELAN RN [...] Scale Risk Level : 0-24 Low Risk [place] Fall Interventions : Wheels locked DILMA WHELAN [...]
--- OUTSIDE RECORDS SUMMARY | 2025-05-26 15:07 | XMS_ITS | Encounter Summary ---
Author Organization [employer] ([place], [place], [place], [place]) Address [address] [place] [address] Care Team Providers Care Shipper And Receiving Name Role Phone Unavailable Primary Care Provider Unavailabl e Encounter Details Date Type Department Care Team (Late st Contact Info) Description 10/15/2018 Transcribed Document [facility] [place] Family Medicine [address] [place] [address] ProviderFeroz MD [facility] [place], [place] [address] Social History Tobacco Use Types Packs/Day Years [...] - Feroz ProviderMD - 10/15/2018 4:49 PM NEONATAL INTENSIVE CARE NURSE Patient Education Materials Follows: Groin Site Care [...] Document Reviewed: 08/29/2011 ExitCare? Patient Information ?2014 [employer]. Pharmacology Moderate Conscious Sedation, Adult, Care After [...] you are awake and alert. ??? Take bbjs-jgu-blsocek and prescription medicines only as told by [...] 05/17/2014 Document Revised: 12/29/2016 Document Reviewed: 11/15/2016 [employer] Interactive Patient Education ? 2017 [employer] Procedures Cardiac Ablation Cardiac ablation is a procedure to stop some heart tissue from causing problems. The heart has many electrical connections. Sometimes these connections cause the heart to beat very fast or irregularly. Removing some of the problem areas can improve heart rhythm or make it normal. Ablation is done for people who: ??? Have Nqwbf-Jnnyfongg-Gdoua syndrome. ??? Have other fast heart rhythms [...] 12/22/2013 Elsevier Interactive Patient Education ? 2017 [employer] documented in this encounter Plan of Treatment Not on file documented as of this encounter Visit Diagnoses Not on filedocumented in this encounter
--- OUTSIDE RECORDS SUMMARY | 2025-05-26 15:07 | XMS_ITS | Encounter Summary ---
[facility] Address [address] [place] [address] Care Team Providers Care Pipeline Dispatcher Name Role Phone Jefe Schwartz MD Primary Care Provider [phone] Encounter Details Date Type Department Care Team (Late st Contact Info) Description 01/12/2025 Results Follow-Up [facility] OBGYN [address] [facility] [address] [place] [phone] Izaiah Mcdaniels MD Social History Tobacco Use Types Packs/Day Years Used Date Smoking Tobacco: Former Cigarettes Q uit: 01/2024 Smokeless Tobacco: Never Comments:Vape. Alcohol Use Standard Drinks/Week Comments Never 0 (1 standard drink = 0.6 oz pur e alcohol) [facility] Utilities Answer Date Recorded In the past 12 months has [employer] electric, gas, oil, or water company [...] and heating? Not hard at all 12/30/2024 [facility] [place] [facility] - Occupational Stress [...] things needed for daily living? No 12/30/2024 Lucan Depression Scale Answer Date Recorded [place] Depression Scale Total 11 02/23/2024 The thought [...] GED or equivalent No 12/30/2024 Preferred Language Algerian 12/30/2024 PHQ-2 Answer Date Recorded Patient Health [...] [facility] OBGYN [address] [place] [address] Aydin Crowe MD [address] [place] [address] 08/21/2025 11:20 AM EST Office Visit [facility] [address] [facility] [address] [address] [place] [address] Aydin Crowe MD [address] [place] [address] Scheduled Orders Name Type Priority Associated Diagnoses Orde r Schedule Gestational Screen 1 Hr ([facility]) Lab Routine , unspecified gestational age Morbid obesity with BMI of 45.0-49.9, adult Expected: 01/26/2025 (Approximate), Expires: 04/14/2026 documented as of this encounter Visit Diagnoses Diagnosis , unspecified gestational age- Primary Morbid obesity with BMI of 45.0-49.9, adult documented in this encounter Care Teams Pipeline Dispatcher Relationship Specialty Start Date End Date Jefe Schwartz MD [address] [facility] [address] [place] [address] PCP - General Adolescent Medicine 12/14/23 documented as of this encounter
--- OUTSIDE RECORDS SUMMARY | 2025-05-26 15:07 | XMS_ITS | Encounter Summary ---
Author Organization [facility] Address [address] [place] [address] Care Team Providers Care Supervisor Special Services Name Role Phone Jefe Schwartz MD Primary Care Provider [phone] Encounter Details Date Type Department Care Team (Late st Contact Info) Description 12/26/2024 Results Follow-Up [facility] OBGYN [address] [facility] [address] [place] [phone] Kelly Patricia, SUBSTITUTE CROSSING GUARD [address] [facility] [address] [place] [address] Social History Tobacco Use Types Packs/Day Years Used Date Smoking Tobacco: Former Cigarettes Q uit: 01/2024 Smokeless Tobacco: Never Comments:Vape. Alcohol Use Standard Drinks/Week Comments Never 0 (1 standard drink = 0.6 oz pur e alcohol) [facility] Utilities Answer Date Recorded In the past 12 months has [employer], gas, oil, or water [employer] threatened to shut off services in your [...] and heating? Not hard at all 12/30/2024 [facility] [place] [facility] - Occupational Stress Questionnaire Answer Date Recorded [...] things needed for daily living? No 12/30/2024 Sabina Depression Scale Answer Date Recorded Sabina Depression Scale Total 11 02/23/2024 The thought [...] GED or equivalent No 12/30/2024 Preferred Language Vietnamese 12/30/2024 PHQ-2 Answer Date Recorded Patient Health [...] Description 07/24/2025 11:00 AM EST Office Visit [facility] OBGYN [address] [place] [phone] Aydin Crowe MD [address] [place] [address] 08/21/2025 11:20 AM EST Office Visit [facility] [address] [facility] [phone] Aydin Crowe MD [address] [place] [phone] documented as of this encounter Visit Diagnoses Not on filedocumented in this encounter Care Teams Supervisor Special Services Relationship Specialty Start Date End Date Jefe Schwartz MD [address] [place] [address] [place] [address] PCP - General Adolescent Medicine 12/14/23 documented as of this encounter
--- OUTSIDE RECORDS SUMMARY | 2025-05-26 15:07 | XMS_ITS | Encounter Summary ---
[facility] Address [address] [place] [address] Care Team Providers Care Jammer Hooker Name Role Phone Jefe Schwartz MD Primary Care Provider [phone] Encounter Details Date Type Department Care Team (Late st Contact Info) Description 12/26/2024 Results Follow-Up [facility] OBGYN [address] [facility] [address] [place] [phone] Kelly Patricia, CASH SHORTAGE INVESTIGATOR [address] [facility] [address] [place] [address] Social History Tobacco Use Types Packs/Day Years Used Date Smoking Tobacco: Former Cigarettes Q uit: 01/2024 Smokeless Tobacco: Never Comments:Vape. Alcohol Use Standard Drinks/Week Comments Never 0 (1 standard drink = 0.6 oz pur e alcohol) [facility] Utilities Answer Date Recorded In the past 12 months has [employer], gas, oil, or water [employer] threatened to shut off services in your [...] heating? Not hard at all 12/30/2024 [facility] [place] [facility] - Occupational Stress Questionnaire Answer Date [...] things needed for daily living? No 12/30/2024 [place] Depression Scale Answer Date Recorded [place] Depression Scale Total 11 02/23/2024 The thought [...] GED or equivalent No 12/30/2024 Preferred Language Divehi 12/30/2024 PHQ-2 Answer Date Recorded Patient Health [...] Description 07/24/2025 11:00 AM EST Office Visit [facility] OBGYN [address] [place] [phone] Aydin Crowe MD [address] [place] [address] 08/21/2025 11:20 AM EST Office Visit [facility] [address] [facility] [phone] Aydin Crowe MD [address] [place] [phone] documented as of this encounter Visit Diagnoses Not on filedocumented in this encounter Care Teams Jammer Hooker Relationship Specialty Start Date End Date Jefe Schwartz MD [address] [place] [address] [place] [address] PCP - General Adolescent Medicine 12/14/23 documented as of this encounter
--- OUTSIDE RECORDS SUMMARY | 2025-05-26 15:07 | XMS_ITS | Encounter Summary ---
Author Organization [employer] ([place], [place], [place], [place]) Address [address] [place] [address] Care Team Providers Care Materials Handling Coordinator Name Role Phone Unavailable Primary Care Provider Unavailabl e Encounter Details Date Type Department Care Team (Late st Contact Info) Description 10/15/2018 Transcribed Document [facility] [place] Family Medicine [address] [place] [address] ProviderFeroz MD [address] [place], [place] [address] Social History Tobacco Use Types Packs/Day Years [...] - Historical ProviderMD - 10/15/2018 2:25 PM GEOGRAPHY PROFESSOR Event Note Entered On: 10/15/2018 14:25 EST [...]
--- OUTSIDE RECORDS SUMMARY | 2025-05-26 15:07 | XMS_ITS | Encounter Summary ---
Author Organization [employer] ([place], [place], [place], [place]) Address [address] [place] [address] Care Team Providers Care Weblogic Developer Name Role Phone Unavailable Primary Care Provider Unavailabl e Encounter Details Date Type Department Care Team (Late st Contact Info) Description 10/15/2018 Transcribed Document [facility] [place] Family Medicine [address] [place] [address] ProviderFeroz MD [address] [place] [address] Social History Tobacco Use Types Packs/Day [...] Feroz Richter MD - 10/15/2018 4:46 PM LINING SEWER [address] , [place] [address] Patient Copy Patient Information: Name: SARBJIT RILEY Current Date: 10/15/2018 16:46:09 : 2000 Patient Address: [place] [address] Patient Attending Physician: Primary Care Provider: SHANI LUDWIG MD Primary Care Provider Discharge Diagnosis: Weight on Admission: 228 lb, 0 oz Comment: Follow-up Instructions: With: Address: When: BELA MARQUES [address] [place] [address] Business (1) Within 2 weeks [...] Document Reviewed: 08/29/2011 ExitCare? Patient Information ?2014 [email or web address]. Moderate Conscious Sedation, Adult, Care After These [...] you are awake and alert. ??? Take fxbg-ynt-wgfdayu and prescription medicines only as told by [...] 05/17/2014 Document Revised: 12/29/2016 Document Reviewed: 11/15/2016 [employer] Interactive Patient Education ? 2017 [employer] Cardiac Ablation Cardiac ablation is a procedure to stop some heart tissue from causing problems. The heart has many electrical connections. Sometimes these connections cause the heart to beat very fast or irregularly. Removing some of the problem areas can improve heart rhythm or make it normal. Ablation is done for people who: ??? Have Orrzv-Odtxvxlrh-Yctfk syndrome. ??? Have other fast heart rhythms [...] 03/29/2014 Document Revised: 01/01/2017 Document Reviewed: 12/22/2013 [employer] Interactive Patient Education ? 2017 [employer] CIGARETTE SMOKING: The facts are clear, cigarette smoking will shorten your life. Smoking can cause many illnesses along the way. As a healthcare provider, we recommend that you stop smoking. Assistance with quitting is available by contacting 1-995-HGNJ-NOW. This is a free resource providing counseling, [...] Be sure to sign up for the [employer] patient portal, which gives you 02/03 access to your medical information ??? including these discharge instructions ??? using your computer, smartphone, or tablet. Just go to [employer] to get started. Questions? Call . [facility] would like to thank you for allowing us to assist you with your healthcare needs. OSVALDO Nunes MADISON EVELYN ROSE, (or sales donor recruitment representative) have received the above patient education materials/instructions and have verbalized understanding: Patient Signature _ Date/Time Patient Associate Professor Of Psychology Signature (if needed) Date/Time Clinician/Hospital Associate Professor Of Psychology Signature (if needed) Date/Time Electronically signed by [facility] Conversion Product Merchandiser Hitesh at 11/25/2022 5:12 PM CDT documented in this encounter Plan of Treatment Not on file documented as of this encounter Visit Diagnoses Not on filedocumented in this encounter
--- OUTSIDE RECORDS SUMMARY | 2025-05-26 15:07 | XMS_ITS | Encounter Summary ---
[facility] Address [address] [place] [address] Care Team Providers Care House Steward/Stewardess Name Role Phone Jefe Schwartz MD Primary Care Provider [phone] Encounter Details Date Type Department Care Team (Late st Contact Info) Description 02/07/2025 Results Follow-Up [facility] OBGYN [address] [facility] [address] [place] [phone] Aydin Crowe MD [address]00 [facility] [address] [place] [address] Social History Tobacco Use Types Packs/Day Years Used Date Smoking Tobacco: Former Cigarettes Q uit: 01/2024 Smokeless Tobacco: Never Comments:Vape. Alcohol Use Standard Drinks/Week Comments Never 0 (1 standard drink = 0.6 oz pur e alcohol) [facility] Utilities Answer Date Recorded In the past 12 months has [employer], gas, oil, or water [employer] threatened to shut off services in your [...] and heating? Not hard at all 01/23/2025 [facility] - Occupational Stress [...] things needed for daily living? No 01/23/2025 Hardy Depression Scale Answer Date Recorded Hardy Depression Scale Total 11 02/23/2024 The thought [...] Description 07/24/2025 11:00 AM EST Office Visit [facility] OBGYN [address] [phone] Aydin Crowe MD [address] [place] [address] 08/21/2025 11:20 AM EST Office Visit [facility] OBGYN [address] [phone] Aydin Crowe MD [address] [address] documented as of this encounter Visit Diagnoses Not on filedocumented in this encounter Care Teams House Steward/Stewardess Relationship Specialty Start Date End Date Jefe Schwartz MD [address] [place] [address] [place] [address] PCP - General Adolescent Medicine 12/14/23 documented as of this encounter
--- OUTSIDE RECORDS SUMMARY | 2025-05-26 15:07 | XMS_ITS | Encounter Summary ---
Author Organization [employer] ([place], [place], [place], [place]) Address [address] [place] [address] Care Team Providers Care Fisheries Diver Name Role Phone Unavailable Primary Care Provider Unavailabl e Encounter Details Date Type Department Care Team (Late st Contact Info) Description 10/15/2018 Transcribed Document [facility] Family Medicine [address] [place] [address] ProviderFeroz MD [address] [place], [place] [address] Social History Tobacco Use Types Packs/Day Years [...] - Feroz ProviderMD - 10/15/2018 4:44 PM PLANNING MANAGEMENT IT SPECIALIST Discharge Instructions Entered On: 10/15/2018 16:45 [...] 10/15/2018 16:47 EST Electronically signed by Kateryna, [facility] Conversion Cash Register Servicer Cerner at 11/25/2022 5:17 PM CDT documented in this encounter Plan of Treatment Not on file documented as of this encounter Visit Diagnoses Not on filedocumented in this encounter
--- OUTSIDE RECORDS SUMMARY | 2025-05-26 15:07 | XMS_ITS | Data Portability ---
Author Organization [facility] HANG [place] CLOSED Address [address] [address] [place] [address] Care Team Providers Care Service Attendant Cafeteria Name Role Phone SHANI LUDWIG Primary Care Provider Assessment Encounter Date Assessment Date Assessment LastModified by Organization Details LastModified Time 11/01/2021 11/01/2021 f/up melania Not available 10/09 07:24:34 04/28/2022 04/28/2022 f/up in 6 months [email or web address] Not available 04/28/2022 13:47:02 04/12/2024 04/12/2024 f/up in 6 months Not available 04/12/2024 15:37:19 07/18/2024 07/18/2024 f/up PRN [email or web address] Not available 04/2024 10:23:59 Plan of Treatment Reminders Order Date Submit Date Provider Last Modified By Organization Details Last Modified Time Details Appointments None recorded. Lab CBC w/ auto diff 2023 024 [email or web address] Laboratory, [address] [place] [address], [id number], 18:35:50 CMP, serum or plasma 2023 024 [email or web address] Laboratory, [address] [place] [address], [address], 4 19:15:24 hepatitis (A+B+C) panel, serum 2023 024 [facility] [[email or web address] Laboratory, [address] [place] [address], [id number], 18:40:19 CBC w/ auto diff 2021 022 [facility] [[email or web address] Laboratory, [address] [place] [address], [address], 15:52:37 CMP, serum or plasma 2021 022 [facility] [[email or web address] Laboratory, [address] [place] [address], [address], 16:15:29 CBC w/ auto diff 2021 022 [facility] [[email or web address] Laboratory, [address] [place] [address], [address], 14:15:20 CMP, serum or plasma 2021 022 [facility] [[email or web address] Laboratory, [address] [place] [address], [address], 13:42:16 hepatitis (A+B+C) panel, serum 2021 [email or web address] Laboratory, [address] [place] [address], [address], 13:45:26 Referral None recorded. Procedures None recorded. Surgeries None recorded. Imaging None recorded. Medication Orders clobetasol 0.05 % scalp solution 2023 024 [email or web address] 2 [facility], [address] [place], [address], 13:32:02 Skyrizi 150 mg/mL subcutaneou s pen injector 2023 024 [facility], [facility] [address] [place] [address], [id number], 4 16:02:33 betamethaso ne, augmented 0.05 % lotion 2021 [email or web address] 2 [id number], [address] [place], [address], 2 14:07:39 Ultravate 0.05 % lotion 2021 022 [email or web address] [id number], [address] [place], [address], 3 15:14:25 Tremfya 100 mg/mL subcutaneou s auto-inject or 2021 [email or web address] [facility], [facility]), [address] [place] [address], [address], [place], [place], [id number], 3 15:14:17 Patient TargetsNo targets recorded. Patient Instructions Encounter Date Encounter Id Patient Instructions Last Modified By Organization Details Last Modified Time 11/01/2021 [id number] Education: We discussed the potential diagnostic options, options for further evaluation and treatments, and the risks and benefits of each. melania Not available 10/29/2021 07:24:37 04/28/2022 [id number] Education: We discussed the potential diagnostic options, options for further evaluation and treatments, and the risks and benefits of each. [email or web address] Not available 04/28/2022 07:05:56 04/12/2024 [id number] Education: We discussed the potential diagnostic options, options for further evaluation and treatments, and the risks and benefits of each. [email or web address] Not available 04/12/2024 15:37:19 07/18/2024 [id number] Education: We discussed the potential diagnostic options, options for further evaluation and treatments, and the risks and benefits of each. [email or web address] Not available 07/18/2024 10:00:58 Reason for Referral None Reported. Results Created Date Observation Date Name Description Value Unit Range Abnormal Flag Note LastModifiedBy Organization Detail LastModifiedTime 11/02/19 22 11/01/2021 COMP. METAB OLIC PANEL glucose 89 mg/dL 74-100 normal Not Available [facility] [address] [place] [address], [id number], 11/01/2021 13:42:16 11/02/19 22 11/01/2021 COMP. METAB OLIC PANEL blood urea nitrogen 8 mg/dL 6-20 normal Not Available [facility] [address] [place] [address], [address], 11/01/2021 13:42:16 11/02/19 22 11/01/2021 COMP. METAB OLIC PANEL creatinine 0.98 mg/dL 0.50-0 .95 high Not Available [facility] [address] [place] [address], [address], 11/01/2021 13:42:16 11/02/19 22 11/01/2021 COMP. METAB OLIC PANEL BUN/creatini ne ratio 8 (calc ) 10-20 low Not Available [facility] [address] [place] [address], [address], 11/01/2021 13:42:16 11/02/19 22 11/01/2021 COMP. METAB OLIC PANEL sodium 140 mmol/ L 136-14 5 normal Not Available [facility] [address] [place] [address], [address], 11/01/2021 13:42:16 11/02/19 22 11/01/2021 COMP. METAB OLIC PANEL potassium 4.7 mmol/ L 3.4-5. 0 normal Not Available [facility] [address] [place] [address], [address], 11/01/2021 13:42:16 11/02/19 22 11/01/2021 COMP. METAB OLIC PANEL chloride 105 mmol/ L 98-107 normal Not Available [facility] [address] [place] [address], [address], 11/01/2021 13:42:16 11/02/19 22 11/01/2021 COMP. METAB OLIC PANEL carbon dioxide 24 mmol/ L 22-31 normal Not Available [facility] [address] [place] [address], [address], 11/01/2021 13:42:16 11/02/19 22 11/01/2021 COMP. METAB OLIC PANEL anion gap 11 (calc ) 7-25 normal Not Available [facility] [address] [place] [address], [address], 11/01/2021 13:42:16 11/02/19 22 11/01/2021 COMP. METAB OLIC PANEL calcium 8.9 mg/dL 8.6-10 .2 normal Not Available [facility] [address] [place] [address], [address], 11/01/2021 13:42:16 11/02/19 22 11/01/2021 COMP. METAB OLIC PANEL total protein 6.6 g/dL 6.4-8. 3 normal Not Available [facility] [address] [place] [address], [address], 11/01/2021 13:42:16 11/02/19 22 11/01/2021 COMP. METAB OLIC PANEL albumin 4.4 g/dL 3.5-5. 2 normal Not Available [facility] [address] [place] [address], [address], 11/01/2021 13:42:16 11/02/19 22 11/01/2021 COMP. METAB OLIC PANEL globulin 2.2 g/dL_ (calc ) 1.5-4. 5 normal Not Available [facility] [address] [place] [address], [address], 11/01/2021 13:42:16 11/02/19 22 11/01/2021 COMP. METAB OLIC PANEL albumin/glob ulin ratio 2.0 (calc ) 1.1-2. 5 normal Not Available [facility] [address] [place] [address], [address], 11/01/2021 13:42:16 11/02/19 22 11/01/2021 COMP. METAB OLIC PANEL bilirubin, total 0.5 mg/dL 0.1-1. 2 normal Not Available [facility] [address] [place] [address], [address], 11/01/2021 13:42:16 11/02/19 22 11/01/2021 COMP. METAB OLIC PANEL alkaline phosphatase 77 U/L 30-121 normal Not Available [facility] [address] [place] [address], [address], 11/01/2021 13:42:16 11/02/19 22 11/01/2021 COMP. METAB OLIC PANEL AST 15 U/L 0-32 normal Not Available [facility] [address] [place] [address], [address], 11/01/2021 13:42:16 11/02/19 22 11/01/2021 COMP. METAB OLIC PANEL ALT 21 U/L 0-33 normal Not Available [facility] [address] [place] [address], [address], 11/01/2021 13:42:16 11/02/19 22 11/01/2021 COMP. METAB OLIC PANEL GFR 95 >= 60 normal Not Available [facility] [address] [place] [address], [address], 11/01/2021 13:42:16 11/02/19 22 11/01/2021 COMP. METAB [...] s/KDO QI/gf r_cal culat orPed Not Available [facility] [address] [place] [address], [address], 11/01/2021 13:42:16 11/02/19 22 11/01/2021 HEPAT ITIS PANEL hepatitis A Ab, IgM Nonrea ctive non-re active normal Not Available [facility] [address] [place] [address], [address], 11/01/2021 13:45:25 11/02/19 22 11/01/2021 HEPAT ITIS PANEL hepatitis B surface Ag Nonrea ctive non-re active normal Not Available [facility] [address] [place] [address], [address], 11/01/2021 13:45:25 11/02/19 22 11/01/2021 HEPAT ITIS PANEL hepatitis B core Ab,IgM Nonrea ctive non reacti ve normal Not Available [facility] [address] [place] [address], [address], 11/01/2021 13:45:25 11/02/19 22 11/01/2021 HEPAT ITIS PANEL hcab, reflex viral RNA qt Nonrea ctive non-re active normal Antib odies to HCV were not detec kennedy; does not exclu de the possi bilit y of expos ure to HCV. Not Available [facility] [address] [place] [address], [address], 11/01/2021 13:45:25 11/02/19 22 11/01/2021 COMPL ETE BLOOD COUNT white blood cells 9.7 K/uL 3.8-10 .8 normal Not Available [facility] [address] [place] [address], [address], 11/01/2021 14:15:20 11/02/19 22 11/01/2021 COMPL ETE BLOOD COUNT red blood cells 4.65 M/uL 3.80-5 .20 normal Not Available [facility] [address] [place] [address], [address], 11/01/2021 14:15:20 11/02/19 22 11/01/2021 COMPL ETE BLOOD COUNT hemoglobin 11.2 g/dL 12.0-1 6.0 low Not Available [facility] [address] [place] [address], [address], 11/01/2021 14:15:20 11/02/19 22 11/01/2021 COMPL ETE BLOOD COUNT hematocrit 34.0 % 35.0-4 7.0 low Not Available [facility] [address] [place] [address], [address], 11/01/2021 14:15:20 11/02/19 22 11/01/2021 COMPL ETE BLOOD COUNT MCV 73 fL 80-100 low Not Available [facility] [address] [place] [address], [address], 11/01/2021 14:15:20 11/02/19 22 11/01/2021 COMPL ETE BLOOD COUNT MCH 24 pg 26-35 low Not Available [facility] [address] [place] [address], [address], 11/01/2021 14:15:20 11/02/19 22 11/01/2021 COMPL ETE BLOOD COUNT MCHC 33 g/dL 32-36 normal Not Available [facility] [address] [place] [address], [address], 11/01/2021 14:15:20 11/02/19 22 11/01/2021 COMPL ETE BLOOD COUNT RDW 16.0 % 11.0-1 5.0 high Not Available [facility] [address] [place] [address], [address], 11/01/2021 14:15:20 11/02/19 22 11/01/2021 COMPL ETE BLOOD COUNT MPV 9.4 fL 6.2-10 .5 normal Not Available [facility] [address] [place] [address], [address], 11/01/2021 14:15:20 11/02/19 22 11/01/2021 COMPL ETE BLOOD COUNT platelet count 352 K/uL 130-40 0 normal Not Available [facility] [address] [place] [address], [address], 11/01/2021 14:15:20 11/02/19 22 11/01/2021 COMPL ETE BLOOD COUNT neutrophil,a bsolute 6.8 K/uL 1.6-8. 4 normal Not Available [facility] [address] [place] [address], [address], 11/01/2021 14:15:20 11/02/19 22 11/01/2021 COMPL ETE BLOOD COUNT lymphocyte,a bsolute 2.1 K/uL 0.4-5. 1 normal Not Available [facility] [address] [place] [address], [address], 11/01/2021 14:15:20 11/02/19 22 11/01/2021 COMPL ETE BLOOD COUNT monocyte,abs olute 0.5 K/uL 0.0-1. 2 normal Not Available [facility] [address] [place] [address], [address], 11/01/2021 14:15:20 11/02/19 22 11/01/2021 COMPL ETE BLOOD COUNT eosinophil,a bsolute 0.2 K/uL 0.0-0. 8 normal Not Available [facility] [address] [place] [address], [address], 11/01/2021 14:15:20 11/02/19 22 11/01/2021 COMPL ETE BLOOD COUNT basophil,abs olute 0.0 K/uL 0.0-0. 3 normal Smear revie wed to confi rm cell morph ology . Not Available [facility] [address] [place] [address], [address], 11/01/2021 14:15:20 11/02/19 22 11/01/2021 COMPL ETE BLOOD COUNT % neutrophils 70.5 % 42.0-7 8.0 normal Not Available [facility] [address] [place] [address], [address], 11/01/2021 14:15:20 11/02/19 22 11/01/2021 COMPL ETE BLOOD COUNT % lymphocytes 22.1 % 11.0-4 7.0 normal Not Available [facility] [address] [place] [address], [address], 11/01/2021 14:15:20 11/02/19 22 11/01/2021 COMPL ETE BLOOD COUNT % monocytes 4.8 % 0.0-11 .0 normal Not Available [facility] [address] [place] [address], [address], 11/01/2021 14:15:20 11/02/19 22 11/01/2021 COMPL ETE BLOOD COUNT % eosinophils 2.4 % 0.0-7. 0 normal Not Available [facility] [address] [place] [address], [address], 11/01/2021 14:15:20 11/02/19 22 11/01/2021 COMPL ETE BLOOD COUNT % basophils 0.2 % 0.0-3. 0 normal Not Available [facility] [address] [place] [address], [address], 11/01/2021 14:15:20 11/02/19 22 11/01/2021 COMPL ETE BLOOD COUNT nucleated red cells 0.0 % 0.0-0. 9 normal Not Available [facility] [address] [place] [address], [address], 11/01/2021 14:15:20 11/02/19 22 11/01/2021 COMPL ETE BLOOD COUNT nucleated RBCs, absolute 0.00 K/uL not estab. normal Not Available [facility] [address] [place] [address], [address], 11/01/2021 14:15:20 11/02/19 22 11/01/2021 MORPH OLOGY platelet morphology NORMAL normal Not Available [facility] [address] [place] [address], [address], 11/01/2021 14:15:22 11/02/19 22 11/01/2021 MORPH OLOGY hypochromasi a SLIGHT abnormal Not Available [facility] [address] [place] [address], [address], 11/01/2021 14:15:22 11/02/19 22 11/01/2021 MORPH OLOGY polychromasi a SLIGHT abnormal Not Available [facility] [address] [place] [address], [address], 11/01/2021 14:15:22 11/02/19 22 11/01/2021 MORPH OLOGY dacryocytes SLIGHT abnormal Not Available [facility] [address] [place] [address], [address], 11/01/2021 14:15:22 04/28/20 22 04/28/2022 COMPL ETE BLOOD COUNT white blood cells 10.7 K/uL 3.8-10 .8 normal Not Available [facility] [address] [place] [address], [address], 04/28/2022 15:52:37 04/28/20 22 04/28/2022 COMPL ETE BLOOD COUNT red blood cells 4.45 M/uL 3.80-5 .20 normal Not Available [facility] [address] [place] [address], [address], 04/28/2022 15:52:37 04/28/20 22 04/28/2022 COMPL ETE BLOOD COUNT hemoglobin 11.2 g/dL 12.0-1 6.0 low Not Available [facility] [address] [place] [address] [place], [address], 04/28/2022 15:52:37 04/28/20 22 04/28/2022 COMPL ETE BLOOD COUNT hematocrit 33.7 % 35.0-4 7.0 low Not Available [facility] [address] [place] [address], [address], 04/28/2022 15:52:37 04/28/20 22 04/28/2022 COMPL ETE BLOOD COUNT MCV 76 fL 80-100 low Not Available [facility] [address] [place] [address], [address], 04/28/2022 15:52:37 04/28/20 22 04/28/2022 COMPL ETE BLOOD COUNT MCH 25 pg 26-35 low Not Available [facility] [address] [place] [address], [address], 04/28/2022 15:52:37 04/28/20 22 04/28/2022 COMPL ETE BLOOD COUNT MCHC 33 g/dL 32-36 normal Not Available [facility] [address] [place] [address], [address], 04/28/2022 15:52:37 04/28/20 22 04/28/2022 COMPL ETE BLOOD COUNT RDW 15.7 % 11.0-1 5.0 high Not Available [facility] [address] [place] [address], [address], 04/28/2022 15:52:37 04/28/20 22 04/28/2022 COMPL ETE BLOOD COUNT MPV 9.1 fL 6.2-10 .5 normal Not Available [facility] [address] [place] [address], [address], 04/28/2022 15:52:37 04/28/20 22 04/28/2022 COMPL ETE BLOOD COUNT platelet count 354 K/uL 130-40 0 normal Not Available [facility] [address] [place] [address], [address], 04/28/2022 15:52:37 04/28/20 22 04/28/2022 COMPL ETE BLOOD COUNT neutrophil,a bsolute 7.8 K/uL 1.6-8. 4 normal Not Available [facility] [address] [place] [address], [address], 04/28/2022 15:52:37 04/28/20 22 04/28/2022 COMPL ETE BLOOD COUNT lymphocyte,a bsolute 2.1 K/uL 0.4-5. 1 normal Not Available [facility] [address] [place] [address], [address], 04/28/2022 15:52:37 04/28/20 22 04/28/2022 COMPL ETE BLOOD COUNT monocyte,abs olute 0.5 K/uL 0.0-1. 2 normal Not Available [facility] [address] [place] [address], [address], 04/28/2022 15:52:37 04/28/20 22 04/28/2022 COMPL ETE BLOOD COUNT eosinophil,a bsolute 0.2 K/uL 0.0-0. 8 normal Not Available [facility] [address] [place] [address], [address], 04/28/2022 15:52:37 04/28/20 22 04/28/2022 COMPL ETE BLOOD COUNT basophil,abs olute 0.0 K/uL 0.0-0. 3 normal Not Available [facility] [address] [place] [address], [address], 04/28/2022 15:52:37 04/28/20 22 04/28/2022 COMPL ETE BLOOD COUNT % neutrophils 72.9 % 42.0-7 8.0 normal Not Available [facility] [address] [place] [address], [address], 04/28/2022 15:52:37 04/28/20 22 04/28/2022 COMPL ETE BLOOD COUNT % lymphocytes 19.9 % 11.0-4 7.0 normal Not Available [facility] [address] [place] [address], [address], 04/28/2022 15:52:37 04/28/20 22 04/28/2022 COMPL ETE BLOOD COUNT % monocytes 4.6 % 0.0-11 .0 normal Not Available [facility] [address] [place] [address], [address], 04/28/2022 15:52:37 04/28/20 22 04/28/2022 COMPL ETE BLOOD COUNT % eosinophils 2.3 % 0.0-7. 0 normal Not Available [facility] [address] [place] [address], [address], 04/28/2022 15:52:37 04/28/20 22 04/28/2022 COMPL ETE BLOOD COUNT % basophils 0.3 % 0.0-3. 0 normal Not Available [facility] [address] [place] [address], [address], 04/28/2022 15:52:37 04/28/20 22 04/28/2022 COMPL ETE BLOOD COUNT nucleated red cells 0.0 % 0.0-0. 9 normal Not Available [facility] [address] [place] [address], [address], 04/28/2022 15:52:37 04/28/20 22 04/28/2022 COMPL ETE BLOOD COUNT nucleated RBCs, absolute 0.00 K/uL not estab. normal Not Available [facility] [address] [place] [address], [address], 04/28/2022 15:52:37 04/28/20 22 04/28/2022 COMP. METAB OLIC PANEL glucose 91 mg/dL 74-100 normal Not Available [facility] [address] [place] [address], [address], 04/28/2022 16:15:29 04/28/20 04/28/2022 COMP. METAB OLIC PANEL blood urea nitrogen 10 mg/dL 6-20 normal Not Available [facility] [address] [place] [address], [address], 04/28/2022 16:15:29 04/28/20 22 04/28/2022 COMP. METAB OLIC PANEL creatinine 1.07 mg/dL 0.50-0 .95 high Not Available [facility] [address] [place] [address], [address], 04/28/2022 16:15:29 04/28/20 22 04/28/2022 COMP. METAB OLIC PANEL BUN/creatini ne ratio 9 (calc ) 10-20 low Not Available [facility] [address] [place] [address], [address], 04/28/2022 16:15:29 04/28/20 22 04/28/2022 COMP. METAB OLIC PANEL sodium 140 mmol/ L 136-14 5 normal Not Available [facility] [address] [place] [address], [address], 04/28/2022 16:15:29 04/28/20 22 04/28/2022 COMP. METAB OLIC PANEL potassium 4.3 mmol/ L 3.4-5. 0 normal Not Available [facility] [address] [place] [address], [address], 04/28/2022 16:15:29 04/28/20 22 04/28/2022 COMP. METAB OLIC PANEL chloride 104 mmol/ L 98-107 normal Not Available [facility] [address] [place] [address], [address], 04/28/2022 16:15:29 04/28/20 22 04/28/2022 COMP. METAB OLIC PANEL carbon dioxide 26 mmol/ L 22-31 normal Not Available [facility] [address] [place] [address], [address], 04/28/2022 16:15:29 04/28/20 22 04/28/2022 COMP. METAB OLIC PANEL anion gap 10 (calc ) 7-25 normal Not Available [facility] [address] [place] [address], [address], 04/28/2022 16:15:29 04/28/20 22 04/28/2022 COMP. METAB OLIC PANEL calcium 9.4 mg/dL 8.6-10 .2 normal Not Available [facility] [address] [place] [address], [address], 04/28/2022 16:15:29 04/28/20 22 04/28/2022 COMP. METAB OLIC PANEL total protein 6.9 g/dL 6.4-8. 3 normal Not Available [facility] [address] [place] [address], [address], 04/28/2022 16:15:29 04/28/20 22 04/28/2022 COMP. METAB OLIC PANEL albumin 4.1 g/dL 3.5-5. 2 normal Not Available [facility] [address] [place] [address], [address], 04/28/2022 16:15:29 04/28/20 22 04/28/2022 COMP. METAB OLIC PANEL globulin 2.8 g/dL_ (calc ) 1.5-4. 5 normal Not Available [facility] [address] [place] [address], [address], 04/28/2022 16:15:29 04/28/20 22 04/28/2022 COMP. METAB OLIC PANEL albumin/glob ulin ratio 1.5 (calc ) 1.1-2. 5 normal Not Available [facility] [address] [place] [address], [address], 04/28/2022 16:15:29 04/28/20 22 04/28/2022 COMP. METAB OLIC PANEL bilirubin, total 0.4 mg/dL 0.1-1. 2 normal Not Available [facility] [address] [place], [address], 04/28/2022 16:15:29 04/28/20 22 04/28/2022 COMP. METAB OLIC PANEL alkaline phosphatase 75 U/L 30-121 normal Not Available [facility] [address] [place], [address], 04/28/2022 16:15:29 04/28/20 22 04/28/2022 COMP. METAB OLIC PANEL AST 15 U/L 0-32 normal Not Available [facility] [address] [place], [address], 04/28/2022 16:15:29 04/28/20 22 04/28/2022 COMP. METAB OLIC PANEL ALT 26 U/L 0-33 normal Not Available [facility] [address] [place], [address], 04/28/2022 16:15:29 04/28/20 22 04/28/2022 COMP. METAB OLIC PANEL GFR 75 >= 60 normal NOT E New calcu latio n for GFR (CKD- EPI 2020) is formu lated witho ut race adjus tment facto rs at the recom menda tion of the Lisseth Angel y Valentín atevelina and Amree garcía [facility] . This calcu latio n has not been valid ated in pregn ant women . For pedia tric patie nts refer to https ://priyanka w.kindra pena.o rg/pr jennifer hutton s/KDO QI/gf r_cal culat orPed Not Available [facility] [address] [place], [address], 04/28/2022 16:15:29 04/12/20 24 04/12/2024 COMPL ETE BLOOD COUNT white blood cells 10.5 10*3/ uL 3.8-10 .8 normal Not Available [facility] [address] [place], [address], 04/12/2024 18:35:50 04/12/20 24 04/12/2024 COMPL ETE BLOOD COUNT red blood cells 4.40 10*6/ uL 3.80-5 .20 normal Not Available [facility] [address] [place] [address], [address], 04/12/2024 18:35:50 04/12/20 24 04/12/2024 COMPL ETE BLOOD COUNT hemoglobin 11.3 g/dL 12.0-1 6.0 low Not Available [facility] [address] [place] [address], [address], 04/12/2024 18:35:50 04/12/20 24 04/12/2024 COMPL ETE BLOOD COUNT hematocrit 33.9 % 35.0-4 7.0 low Not Available [facility] [address] [place] [address], [address], 04/12/2024 18:35:50 04/12/20 24 04/12/2024 COMPL ETE BLOOD COUNT MCV 77 fL 80-100 low Not Available [facility] [address] [place] [address], [address], 04/12/2024 18:35:50 04/12/20 24 04/12/2024 COMPL ETE BLOOD COUNT MCH 26 pg 26-35 normal Not Available [facility] [address] [place] [address], [address], 04/12/2024 18:35:50 04/12/20 24 04/12/2024 COMPL ETE BLOOD COUNT MCHC 33 g/dL 32-36 normal Not Available [facility] [address] [place] [address], [address], 04/12/2024 18:35:50 04/12/20 24 04/12/2024 COMPL ETE BLOOD COUNT RDW 15.1 % 11.0-1 5.0 high Not Available [facility] [address] [place] [address], [address], 04/12/2024 18:35:50 04/12/20 24 04/12/2024 COMPL ETE BLOOD COUNT MPV 9.6 fL 6.2-10 .5 normal Not Available [facility] [address] [place] [address], [address], 04/12/2024 18:35:50 04/12/20 24 04/12/2024 COMPL ETE BLOOD COUNT platelet count 302 10*3/ uL 150-40 0 normal Not Available [facility] [address] [place] [address], [address], 04/12/2024 18:35:50 04/12/20 24 04/12/2024 COMPL ETE BLOOD COUNT neutrophil,a bsolute 7.1 10*3/ uL 1.6-8. 4 normal Not Available [facility] [address] [place] [address], [address], 04/12/2024 18:35:50 04/12/20 24 04/12/2024 COMPL ETE BLOOD COUNT lymphocyte,a bsolute 2.6 10*3/ uL 0.4-5. 1 normal Not Available [facility] [address] [place] [address], [address], 04/12/2024 18:35:50 04/12/20 24 04/12/2024 COMPL ETE BLOOD COUNT monocyte,abs olute 0.5 10*3/ uL 0.0-1. 2 normal Not Available [facility] [address] [place] [address], [address], 04/12/2024 18:35:50 04/12/20 24 04/12/2024 COMPL ETE BLOOD COUNT eosinophil,a bsolute 0.2 10*3/ uL 0.0-0. 8 normal Not Available [facility] [address] [place] [address], [address], 04/12/2024 18:35:50 04/12/20 24 04/12/2024 COMPL ETE BLOOD COUNT basophil,abs olute 0.0 10*3/ uL 0.0-0. 3 normal Not Available [facility] [address] [place] [address], [address], 04/12/2024 18:35:50 04/12/20 24 04/12/2024 COMPL ETE BLOOD COUNT % neutrophils 68.2 % 42.0-7 8.0 normal Not Available [facility] [address] [place] [address], [address], 04/12/2024 18:35:50 04/12/20 24 04/12/2024 COMPL ETE BLOOD COUNT % lymphocytes 24.8 % 11.0-4 7.0 normal Not Available [facility] [address] [place] [address], [address], 04/12/2024 18:35:50 04/12/20 24 04/12/2024 COMPL ETE BLOOD COUNT % monocytes 4.8 % 0.0-11 .0 normal Not Available [facility] [address] [place] [address], [address], 04/12/2024 18:35:50 04/12/20 24 04/12/2024 COMPL ETE BLOOD COUNT % eosinophils 1.9 % 0.0-7. 0 normal Not Available [facility] [address] [place] [address], [address], 04/12/2024 18:35:50 04/12/20 24 04/12/2024 COMPL ETE BLOOD COUNT % basophils 0.3 % 0.0-3. 0 normal Not Available [facility] [address] [place] [address], [address], 04/12/2024 18:35:50 04/12/20 24 04/12/2024 COMPL ETE BLOOD COUNT nucleated red cells 0.1 % 0.0-0. 9 normal Not Available [facility] [address] [place] [address], [address], 04/12/2024 18:35:50 04/12/20 24 04/12/2024 COMPL ETE BLOOD COUNT nucleated RBCs, absolute 0.01 10*3/ uL not estab. normal Not Available [facility] [address] [place] [address], [address], 04/12/2024 18:35:50 04/12/20 24 04/12/2024 HEPAT ITIS PANEL hepatitis A Ab, IgM NONREA CTIVE nonrea ctive normal Not Available [facility] [address] [place] [address], [address], 04/12/2024 18:40:19 04/12/20 24 04/12/2024 HEPAT ITIS PANEL hepatitis B surface Ag NONREA CTIVE nonrea ctive normal Not Available [facility] [address] [place] [address], [address], 04/12/2024 18:40:19 04/12/20 24 04/12/2024 HEPAT ITIS PANEL hepatitis B core Ab,IgM NONREA CTIVE nonrea ctive normal Not Available [facility] [address] [place] [address], [address], 04/12/2024 18:40:19 04/12/20 24 04/12/2024 HEPAT ITIS PANEL hcab, reflex viral RNA qt NONREA CTIVE nonrea ctive normal Antib odies to HCV were not detec kennedy; does not exclu de the possi bilit y of expos ure to HCV. Not Available [facility] [address] [place] [address], [address], 04/12/2024 18:40:19 04/12/20 24 04/12/2024 COMP. METAB OLIC PANEL glucose 99 mg/dL 74-100 normal Not Available [facility] [address] [place] [address], [address], 04/12/2024 19:15:24 04/12/20 24 04/12/2024 COMP. METAB OLIC PANEL blood urea nitrogen 14 mg/dL 6-20 normal Not Available [facility] [address] [place] [address], [address], 04/12/2024 19:15:24 04/12/20 24 04/12/2024 COMP. METAB OLIC PANEL creatinine 1.15 mg/dL 0.50-0 .95 high Not Available [facility] [address] [place] [address], [address], 04/12/2024 19:15:24 04/12/20 24 04/12/2024 COMP. METAB OLIC PANEL BUN/creatini ne ratio 12 (calc ) 10-20 normal Not Available [facility] [address] [place] [address], [address], 04/12/2024 19:15:24 04/12/20 24 04/12/2024 COMP. METAB OLIC PANEL sodium 139 mmol/ L 136-14 5 normal Not Available [facility] [address] [place] [address], [address], 04/12/2024 19:15:24 04/12/20 24 04/12/2024 COMP. METAB OLIC PANEL potassium 3.9 mmol/ L 3.4-5. 0 normal Not Available [facility] [address] [place] [address], [address], 04/12/2024 19:15:24 04/12/20 24 04/12/2024 COMP. METAB OLIC PANEL chloride 102 mmol/ L 98-107 normal Not Available [facility] [address] [place] [address], [address], 04/12/2024 19:15:24 04/12/20 24 04/12/2024 COMP. METAB OLIC PANEL carbon dioxide 25 mmol/ L 22-31 normal Not Available [facility] [address] [place] [address], [address], 04/12/2024 19:15:24 04/12/20 24 04/12/2024 COMP. METAB OLIC PANEL anion gap 12 (calc ) 7-25 normal Not Available [facility] [address] [place] [address], [address], 04/12/2024 19:15:24 04/12/20 24 04/12/2024 COMP. METAB OLIC PANEL calcium 9.1 mg/dL 8.6-10 .2 normal Not Available [facility] [address] [place] [address], [address], 04/12/2024 19:15:24 04/12/20 24 04/12/2024 COMP. METAB OLIC PANEL total protein 7.1 g/dL 6.4-8. 3 normal Not Available [facility] [address] [place] [address], [address], 04/12/2024 19:15:24 04/12/20 24 04/12/2024 COMP. METAB OLIC PANEL albumin 4.0 g/dL 3.5-5. 2 normal Not Available [facility] [address] [place] [address], [address], 04/12/2024 19:15:24 04/12/20 24 04/12/2024 COMP. METAB OLIC PANEL globulin 3.1 1.5-4. 5 normal Not Available [facility] [address] [place] [address], [address], 04/12/2024 19:15:24 04/12/20 24 04/12/2024 COMP. METAB OLIC PANEL albumin/glob ulin ratio 1.3 (calc ) 1.1-2. 5 normal Not Available [facility] [address] [place] [address], [address], 04/12/2024 19:15:24 04/12/20 24 04/12/2024 COMP. METAB OLIC PANEL bilirubin, total 0.6 mg/dL 0.1-1. 2 normal Not Available [facility] [address] [place] [address], [address], 04/12/2024 19:15:24 04/12/20 24 04/12/2024 COMP. METAB OLIC PANEL alkaline phosphatase 62 U/L 30-121 normal Not Available [facility] [address] [place], [address], 04/12/2024 19:15:24 04/12/20 24 04/12/2024 COMP. METAB OLIC PANEL AST 17 U/L 0-32 normal Not Available [facility] [address] [place], [address], 04/12/2024 19:15:24 04/12/20 24 04/12/2024 COMP. METAB OLIC PANEL ALT 23 U/L 0-33 normal Not Available [facility] [address] [place] [address], [address], 04/12/2024 19:15:24 04/12/20 24 04/12/2024 COMP. METAB [...] s/KDO QI/gf r_cal culat orPed Not Available [facility] [address] [place], [address], 04/12/2024 19:15:24 09/16/19 22 09/16/2021 exerc ise stres s test No observ ation record ed. [email or web address] Not Available 2021 11:08:41 09/16/19 22 09/16/2021 cardi ac stres s test No observ ation record ed. [email or web address] Bela Marques MD [address], [place], [address], 09/16/2021 11:58:59 Result Notes None recorded. Problems Name Problem SNOMED Code Status Onset Date Resolution Date Notes Provider Name and Address Organization Details Recorded Time Flexural psoriasi s 732865721 Active 2015 From [employer];Pro vider: Leatha Hawk;Rudi tatus: Active Not Available [facility] 6 07:38:05 Chest pain 31624110 Active 2018 CHAYO LEYVA PA-C [address] [place] [address], [address] , [facility] 9 09:37:38 Palpitat ions 81244210 Active 2018 CHAYO LEYVA PA-C [address] [place] [address], [address] , [facility] 9 09:37:42 Electroc ardiogra m abnormal 126339168 Completed 201810/10/2018 BELA MARQUES MD [address] [place] [address], [address] [place] [address] 9 13:11:32 Chris-Pa rkinson- White pattern 65293048 Active 2018 BELA MARQUES MD [address] [place] [address], [address] , [facility] 9 13:11:38 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 Procedures Surgical History Date Name Laterality Status Provider Name and Address Organization Details Recorded Time 09/16/19 22 Stress Test - Exercise Treadmill completed BELA MARQUES MD [address] [place] [address], [address], [facility] 09/16/2021 11:01:47 10/16/19 19 Other completed Piedad Willoughby [facility] 01/05/2019 08:11:26 09/16/19 19 Echocardiogram completed BELA MARQUES MD [facility] [place], [address], [facility] 09/16/2018 15:11:05 Imaging Results None recorded. Procedure Notes None recorded. Medical Equipment None Reported. Allergies Allergen ID Allergen Name Allergen Category Reaction Reaction Severity Criticality Documentation Date Start Date Code Code System Note Provider Name and Address Organization Details Recorded Time 704229 fentanyl medicatio n Not available Not available Not available 04/12/2024 4337 RxNorm Gabriela Stephens [facility] 15:45:23 Medications Name Sig Start Date [...] Updated DateTime 2 167.64 cm 42 kg/m2 832762. 12 g 18 /min 92 /min 99 % 99 % 104/74 mm[Hg] Amada Borja [facility] 2 12:02:26 Social History Question Answer Notes LastModified by Organizat ion Details LastModified Time Tobacco Smoking Status Never Smoker Gia [email or web address], [facility] 12/14/2017 08:51:07 How Much Tobacco Do You Chew? None [email or web address] Information not available 01/05/2019 What Was The Date Of Your Most Recent Tobacco Screening? 09/16/2021 Information not available 09/16/2021 How Many Children Do You Have? 0 [email or web address] Information not available 08/13/2021 What Is Your Relationship Status? Single Information not available 08/13/2021 How Much Tobacco Do You Smoke? No [email or web address] Information not available 01/05/2019 Has Tobacco Cessation Counseling Been Provided? Yes Information not available 09/16/2021 On What Date Was Tobacco Cessation Counseling Provided? 09/16/2021 Information not available 09/16/2021 How Many Years Have You Smoked Tobacco? 0 [email or web address] Information not available 01/05/2019 Have You Recently Traveled Abroad? No [email or web address] Information not available 08/13/2021 Sex: Female Functional Status Question Answer Note LastModified by Organizat ion Details LastModified Time Do you use any illicit or recreational drugs? No Information not available 09/16/2021 Do you or have you ever used any other forms of tobacco or nicotine? No Information not available 09/16/2021 What is your level of alcohol consumption? None [email or web address] Information not available 09/07/2018 Do you or [...] Details LastModified Time Unspecified Relation Allergic rhinitis [email or web address] Not available 2018 08:09:37 Mother Arthritis Not availabl e 01/05/2019 08:09:54 Mother Asthma [email or web address] Not available 1 09/12/2019 13:24:17 Mother Diabetes mellitus [email or web address] Not available 2019 13:24:35 Father Arthritis Not availabl e 01/05/2019 08:09:54 Father Heart disease [email or web address] Not available 2019 13:23:57 Father Hypertensive disorder [email or web address] Not available 2019 13:24:07 Sister Diabetes mellitus [email or web address] Not available 2019 13:24:35 Notes:father has had bypass surgery, mother has afib Medical History Condition Response Diabetes N Bleeding Disorder N Arthritis N Emphysema N Acid Reflux (GERD) N Heart Disease N Rheumatoid Arthritis N Hypertension N COPD N Asthma N Gynecological HistoryNo gynecological history recorded. Obstetrics History GPAL:G 0 P 0 0 0 0 Immunizations Vaccine Type Date Status Note Provider Nam e and Address Organization Details Recorded Time Influenza, split virus, quadrivalent, preservative [address] [facility] 01/05/2019 08:09:18 Past Encounters Encounter ID Performer Location Encounter Start Date Encounter Closed Date Diagnosis/Indication Diagnosis SNOMED-CT Code Diagnosis ICD10 Code Diagnosis IMO Codes Diagnosis Note [id number] LEATHA HAWK MD DERMATLENY [place] [address] [place] [address] 7 02/17/2017 09:23:50 02/19/2017 09:36:16 Psoriasis 0400286 L40.9 Flaring on scalp and hands - Discussed treatment options - Will refill Ultravate cream and start clobetasol shampoo and soln. Consider Otezla. [id number] LEATHA HAWK MD DERMATLENY [facility] [address] [place] [address] 7 12/14/2017 08:41:54 12/14/2017 12:41:37 Psoriasis 0151260 L40.9 Doing well - continue Clobetasol Shampoo and Ultravate as needed. Intertrigo 86820737 L30. 4 Upper inner thighs - Recommend trying Zeasorb AF powder [id number] CHAYO LEYVA PA-C CARDIOLOG Y [place]AST [address] [place] [address] [place] [address] 5 09/07/2018 08:53:10 09/07/2018 10:30:15 Chest pain 40995145 R07.9 Palpitations 20129632 R0 0.2 Electrocar diogram abnormal 291319618 R94.31 [id number] BELA MARQUES MD ECHO VASCULAR LAB [facility] [address] [place] [address] 5 09/16/2018 12:43:34 09/17/2018 09:22:49 Atypical chest pain 411564255 R07.89 Electrocar diogram abnormal 149323302 R94.31 [id number] BELA MARQUES MD HEART STATION [address] [place] [address] 09/23/2018 08:22:45 09/23/2018 10:57:16 Palpitations 77259026 R00.2 [id number] BELA MARQUES MD CARDIOLOG Y [address] [place] [address] 5 10/11/2018 12:30:40 10/13/2018 09:47:47 Hmqfx-Lywptyxkq-Ttcoi pattern 08930343 I45.6 The patient has WPW with symptoms [...] as well as bleeding and thrombotic events. [id number] BELA MARQUES MD CARDIOLOG Y [address] [place] [address] 5 10/20/2018 12:55:39 10/21/2018 09:34:35 Focee-Bojbupzab-Ekolw pattern 62183257 I45.6 I have reassured the patient that her heart rate of 90-95 bpm is in a normal range and that her EKG shows evidence of a durable ablation result to date. [id number] STEVAN HUTCHINS MD RHEUMATOL OGY [address] [place] [address] 01/05/2019 07:47:31 01/06/2019 17:34:52 Body mass index 30+ - obesity 602149455 Z68.30 BMI 36. Low-carb diet, regular exercise encouraged . Anti-nucle ar factor detected 625255387 R76.8 a very pleasant 18-year-ol d female [...] further evaluation of the positive SHANTI screen. [id number] LEATHA HAWK MD DERMATOLO [address] [place] [address] 07/15/2019 09:54:59 07/15/2019 13:42:15 Psoriasis 5005088 L40.9 Scalp and hands has used Clobetasol and Ultravate Discussed Otezla and biologics Will try to get Otezla approved - Will give a starter min today [id number] CHAYO LEYVA PA-C CARDIOLOG Y [address] [place] [address] 5 10/12/2019 14:37:57 10/12/2019 15:22:31 Palpitations 65228491 R00.2 Chris-Park inson-White pattern 80533924 I45.6 [id number] BELA MARQUES MD HEART STATION [address] [place] [address] 10/13/2019 10:36:07 10/13/2019 10:36:34 Palpitations 91923299 R00.2 [id number] MD GIDEON REYNA [facility] [address] [place] [address] 07/12/2020 13:06:50 07/12/2020 13:51:01 Hypertrophy of tonsils 84262448 J35.1 Recurrent acute tonsillitis 772510957 J03.91 Chronic tonsillitis 9097 9004 J35.01 Psoriasis 4765011 L40.9 -TAKES OTEZPIEDAD Perez-Katy inson-White pattern 71238715 I45.6 -S/P CARDIAC ABLATION [id number] LIYAH RIVERA MD SURGERY SCHEDULE [address] [place] [address] 07/30/2020 07:03:39 07/30/2020 07:04:26 [id number] LIYAH RIVERA MD [place] ENT [facility] CLOSED [address] [place] [address] 08/23/2020 11:02:10 08/23/2020 11:48:37 Hypertrophy of tonsils 31389937 J35.1 -s/p TONSILLECT FILIBERTO AND ADENOIDECT FILIBERTO 07/30/20 Recurrent acute tonsillitis 222504587 J03.91 Chronic tonsillitis 9097 9004 J35.01 Psoriasis 5087465 L40.9 -TAKES OTEZPIEDAD Perez-Katy inson-White pattern 44101850 I45.6 -S/P CARDIAC ABLATION Examination of ear 91126 0007 Z01.118 Acute ivone al otitis externa 322279991 B36.9 [id number] CHAYO LEYVA PA-C CARDIOLOG Y [address] [address] 08/13/2021 11:05:20 08/13/2021 12:11:30 Body mass index 40+ - severely obese 453409557 Z68.42 Non-starch y vegetables , lean proteins, avoid fried foods and high fatty foods. Avoid concentrat ed sweets and sugary beverages. Increase activity, 15-20 minute walk 4-5 times a week. Elevated blood-pressure reading without diagnosis of hypertension 772260609 R03.0 Continue to monitor blood pressures. Encouraged weight loss exercise and low-sodium diet. Chest pain 08270580 R07. 9 Likely related to palpitatio ns in conjunctio n with elevated blood pressures. We will add metoprolol 50 mg daily. Follow-up with Dr. Marques in 6 weeks with treadmill stress test. Patient was advised to call should she develop any problems in the interim Palpitations 73891240 R0 0.2 [id number] BELA MARQUES MD CARDIOLOG Y [address] [address] 09/16/2021 10:16:09 09/16/2021 12:23:48 Obese [id number] E66.9 Hyperdynam ic circulation 074609622 R09.89 Mrs. Trevino presented with complaints of [...] effects from medication or any other concerns. [id number] BELA MARQUES MD HEART STATION [address] [address] 09/16/2021 10:14:05 09/16/2021 11:11:37 [id number] MD GIUSEPPE ALCOCER [place] [address] [place] [address] 11/01/2021 09:06:57 11/01/2021 10:30:39 Psoriasis 8132374 L40.9 Scalp and handswith PSA - joint involvemen thas used Clobetasol and Ultravate Discussed Otezla and biologicsh as been using Otezla but not effectiveW ill start PA for Tremfyalab s ordered today, had tb skin test yesterdayc ontinue ultravate Psoriatic arthritis 4363 21167 L40.50 [id number] MD GIUSEPPE [place] [address] [place] [address] 04/28/2022 13:11:04 04/28/2022 13:58:58 Psoriasis 4411413 L40.9 Scalp and hands--bet ter, not clearArthr itis betterStar kennedy Humira in November--lab today Failed Otezla Clobetasol and ultravateW ill continue Humira for now and use augmented betamethas one lotion as needed Patient is trying to get , discussed uncertain risks but probably safeConsid er Cimzia Psoriatic arthritis 1563 02568 L40.50 Joint pain better since starting Humira [id number] LEATHA HAWK MD DERMATOLO [facility]Y [facility] [address] [place] [address] 04/12/2024 15:32:34 04/12/2024 16:14:28 Psoriasis 7068096 L40.9 Scalp has flare upArthriti s - Not doing wellStarte d Humira in November 2021 Failed OtezlaStop ped Humira in Sep 2022 6 months before getting .S topped augmented betamethas one lotion. Pt had a baby in December, not trying to conceive January 20, 2024 Negative PPD Will begin Skyrizi todayLabs done today Psoriatic arthritis 1563 02080 L40.50 Joint pain Is extreme [id number] LEATHA HAWK MD DERMATOLO [facility] [address] [place] [address] 07/18/2024 09:53:15 07/18/2024 12:18:18 Psoriasis 8595457 L40.9 Scalp has flare up with much [...] er Cimzia if needed Psoriatic arthritis 1563 60800 L40.50 Joint pain Is extreme Health Concerns Section Related Observation LastModified by Organization Detai ls LastModified Time None Recorded Concern Status LastModified by Organization Details LastModified Time None Recorded Advance Directives Directive None Recorded Payers Insurance Date Sequence Insurance Name Policy Number Policy Alvarez Covered Member ID Alvarez Member ID Guarantor Name 03/11/2019 PAYMENT PLAN Lisa Trevino 07/15/2024 1 [facility] HEALTH BENEFITS PLAN - OPEN ACCESS PLUS 32 Altagracia Trevino [id number] Lisa E R Uriel 12/13/2020 PAYMENT PLAN Lisa E R Uriel 11/16/2020 1 [facility] HEALTH BENEFIT PLAN Altagracia Trevino [id number] Lisa Moellerlin 01/22/2023 PAYMENT PLAN Lisa Trevino Notes [...] anterolateral AP in 2018. BELA MARQUES MD [address] [place] [address], [phone], [facility] 09/16/2021 12:19:06 11/01/2021 text/html ROS as noted [...] family history of melanoma. LEATHA HAWK MD [address] [place] [address], [phone], [facility] 11/01/2021 13:16:22 04/28/2022 text/html ROS as noted in the [facility] Established Patient here for SAUMYA of psoriasis [...] family history of melanoma. LEATHA HAWK MD [address] [place] [address], [phone], [facility] 04/28/2022 14:07:20 04/12/2024 text/html ROS as noted in the [facility] Established Patient here for SAUMYA of psoriasis [...] family history of melanoma. LEATHA HAWK MD [address] [place] [address], [phone], [facility] 04/12/2024 16:39:55 07/18/2024 text/html ROS as noted in the [facility] Established Patient here for SAUMYA of psoriasis [...] family history of melanoma. LEATHA HAWK MD [address] [place] [address] [place], [address], [facility] 07/18/2024 12:33:28 OBGyn Episode No OBEpisode recorded.
--- OUTSIDE RECORDS SUMMARY | 2025-05-26 15:07 | XMS_ITS | Encounter Summary ---
Author Organization [employer] ([place], [place] Address [address] [place] [address] Care Team Providers Care Java Security Architect Name Role Phone Unavailable Primary Care Provider Unavailabl e Encounter Details Date Type Department Care Team (Late st Contact Info) Description 10/15/2018 Transcribed Document [facility] [place] [address] [place] [address] ProviderFeroz MD [facility] [place], [place] [address] Social History Tobacco Use Types Packs/Day Years [...] Feroz Richter MD - 10/15/2018 10:25 AM SET UP TECHNICIAN DATE OF STUDY: 10/15/2018 ELECTROPHYSIOLOGY REPORT PREOPERATIVE DIAGNOSIS: Lyfkm-Zeuuheymf-Obbbj with recurrent symptomatic tachycardia. PROCEDURE PERFORMED: Comprehensive [...] infiltrated 1% with 1% lidocaine locally. Two 6-Cape Verdean and two 7-Cape Verdean sheaths were placed in the left femoral vein. A 5-C[place]an sheath was placed in the left femoral artery. A 5-[place] Verdean pigtail catheter was placed to level aortic valve plane for continuous arterial pressure monitoring to assist with transseptal cardiac catheterization. A 7-Cape Verdean Decapolar catheter was placed in the coronary sinus. A 6-C[place]dean Quadripolar catheters were placed to high right [...] through the right femoral vein, a long 9-Cape Verdean sheath and 11-Cape Verdean sheath were introduced. A [employer] Rosas intracardiac [...] was measured and recorded. Next, using a [employer] Rosas STF Curve irrigated ablation catheter in [...]
--- OUTSIDE RECORDS SUMMARY | 2025-05-26 15:07 | XMS_ITS | Encounter Summary ---
Author Organization [facility] Address [address] [place] [address] Care Team Providers Care Rn Cvicu Name Role Phone Jefe Schwartz MD Primary Care Provider [phone] Encounter Details Date Type Department Care Team (Latest Contact Info) Description 04/17/2025 Travel Social History Tobacco Use Types Packs/Day Years Used Date Smoking Tobacco: Former Cigarettes Q uit: 01/2024 Passive Smoke Exposure: Past Smokeless Tobacco: Never Comments:Vape. Alcohol Use Standard Drinks/Week Comments Never 0 (1 standard drink = 0.6 oz pur e alcohol) [facility] Utilities Answer Date Recorded In the past 12 months has [employer] electric, gas, oil, or water company threatened [...] and heating? Not hard at all 03/06/2025 [facility] [place] [facility] - Occupational [...] things needed for daily living? No 03/06/2025 Schriever Depression Scale Answer Date Recorded Schriever Depression Scale Total 7 04/17/2025 The thought [...] Description 07/24/2025 11:00 AM EST Office Visit [facility] [address] [phone] Aydin Crowe MD [address] [address] 08/21/2025 11:20 AM EST Office Visit [facility] [address] [phone] Aydin Crowe MD [address] [address] documented as of this encounter Visit Diagnoses Not on filedocumented in this encounter Care Teams Rn Cvicu Relationship Specialty Start Date End Date Jefe Schwartz MD [address] [facility] [address] [place] [address] PCP - General Adolescent Medicine 12/14/23 documented as of this encounter
--- OUTSIDE RECORDS SUMMARY | 2025-05-26 15:07 | XMS_ITS | Encounter Summary ---
Author Organization [employer] ([place], [place], [place], [place]) Address [address] [place] [address] Care Team Providers Care Chief Reservoir Engineering Name Role Phone Unavailable Primary Care Provider Unavailabl e Encounter Details Date Type Department Care Team (Late st Contact Info) Description 10/15/2018 Transcribed Document [facility] [place] [address] [place] [address] ProviderFeroz MD [address] [place] [address] Social History Tobacco Use Types Packs/Day [...] Feroz Richter MD - 10/15/2018 4:48 PM WEAVING TEACHER [address] , [place] [address] Patient Copy Patient Information: Name: SARBJIT RILEY Current Date: 10/15/2018 16:48:56 : 2000 Patient Address: [place] [address] Patient Attending Physician: Primary Care Provider: SHANI LUDWIG MD Primary Care Provider Discharge Diagnosis: Weight on Admission: 228 lb, 0 oz Comment: Follow-up Instructions: With: Address: When: BELA MARQUES [address] [place] [address] Business (1) Within 2 weeks [...] Document Reviewed: 08/29/2011 ExitCare? Patient Information ?2014 [employer]. Moderate Conscious Sedation, Adult, Care After These [...] you are awake and alert. ??? Take wnyv-jtq-rditsuq and prescription medicines only as told by [...] 11/15/2016 Elsevier Interactive Patient Education ? 2017 [employer] Cardiac Ablation Cardiac ablation is a procedure to stop some heart tissue from causing problems. The heart has many electrical connections. Sometimes these connections cause the heart to beat very fast or irregularly. Removing some of the problem areas can improve heart rhythm or make it normal. Ablation is done for people who: ??? Have Wygoh-Xzynfekwy-Xysge syndrome. ??? Have other fast heart rhythms [...] 12/22/2013 Elsevier Interactive Patient Education ? 2017 [employer] CIGARETTE SMOKING: The facts are clear, cigarette smoking will shorten your life. Smoking can cause many illnesses along the way. As a healthcare provider, we recommend that you stop smoking. Assistance with quitting is available by contacting 5-059-SQPU-NOW. This is a free resource providing counseling, [...] Be sure to sign up for the [employer] patient portal, which gives you 02/03 access to your medical information ??? including these discharge instructions ??? using your computer, smartphone, or tablet. Just go to [employer] to get started. Questions? Call . [facility] would like to thank you for allowing us to assist you with your healthcare needs. I, OSVALDO, SARBJIT DARYL AVTAR, (or cash applications representative) have received the above patient education materials/instructions and have verbalized understanding: Patient Signature _ Date/Time Patient Human Resources Representative Signature (if needed) Date/Time Clinician/Hospital Human Resources Representative Signature (if needed) Date/Time documented in this encounter Plan of Treatment Not on file documented as of this encounter Visit Diagnoses Not on filedocumented in this encounter
--- OUTSIDE RECORDS SUMMARY | 2025-05-26 15:07 | XMS_ITS | Encounter Summary ---
Author Organization [employer] ([place], [place], [place]) Address [address] [place] [address] Care Team Providers Care Emergency Doctor Name Role Phone Unavailable Primary Care Provider Unavailabl e Encounter Details Date Type Department Care Team (Late st Contact Info) Description 10/15/2018 Transcribed Document [facility] [place] [address] [place] [address] ProviderFeroz MD [address] [place], [place] [id number] Social History Tobacco Use Types Packs/Day Years [...] - Historical ProviderMD - 10/15/2018 7:45 AM HALL DIRECTOR Event Note Entered On: 10/15/2018 7:46 EST [...]
--- OUTSIDE RECORDS SUMMARY | 2025-05-26 15:07 | XMS_ITS | Encounter Summary ---
Author Organization Healthcare Address [address] [place] [address] Care Team Providers Care Guncotton Packer Name Role Phone System, Provider Not In MD Primary Care Provider Unavailable Reason for Referral * Consultation (Routine) - Authorized Specialty Diagnoses / Procedures Referred By Jeanne roberts Referred To Contact Nephrology Diagnoses Proteinuria complicating , unspecified trimester Izaiah Mcdaniels MD [address] [place] [facility] [address] [place] [address] Phone: tel: fax: [facility] Nephrology, Bone & Mineral Metabolism [address] [facility], [address] [place] [address] Phone: tel: fax: Referral ID Status Reason Start Date Expiration Date Visits Requested Visits Authorized [id number] Authorized Specialty Services Required 02/13/2025 08/15/2026 1 1 Encounter Details Date Type Department Care Team (Late st Contact Info) Description 02/13/2025 Community Orders Community [facility] [address] [place] [address] Izaiah Mcdaniels MD [address] [place] [address] Proteinuria complicating , unspecified trimester (Primary Dx) [...] Description 06/30/2025 1:20 PM EST Office Visit [facility] [address] [place] [address] Duke White MD [address] [place] [phone] Scheduled Referrals Name Type Priority Associated Diagnoses [...] documented as of this encounter Care Teams Guncotton Packer Relationship Specialty Start Date End Date System, Provider Not In, [address] [place] [address] PCP - General Family Medicine 09/29/24 documented as of this encounter
--- OUTSIDE RECORDS SUMMARY | 2025-05-26 15:07 | XMS_ITS | Clinical Summary ---
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 Primary hypertension 01/12/2025 Family History Medical History Relation Name Comments [...] 1:20 PM EST Office Visit [facility] [address] [place], [place] [address] Duke White MD [address] [place] [phone] Health Maintenance Due Date Last Done Comments [facility]-Infant/Child/Adol SDOH Screenings 2000 [facility]-Varicella Vaccines (2 of 2 - 2-dose childhood series) 06/09/2005 03/17/2005 HPV Vaccines (1 - 3-dose series) 2015 [facility]- SDOH Screenings 2018 [facility]-Adult SDOH Screenings 2018 [facility]-ISTFB-21 Vaccine ( season) 2025 05/22/2021, 09/12/2020, 08/22/2020 [...] Reactive Non Reactive 10/06/2024 6:03 PM EST [facility] Comment:Screening for HIV 1 & 2 antibodies, and P24 antigen is NONREACTIVE. No confirmatory testing is required. Blood Venous blood specimen / Unknown Venipuncture / Unknown 10/06/2024 3:25 PM EST 10/06/2024 3:25 PM EST us Aston Meyer MD LAB BLOOD ORDERABLES Final Resul t [facility] [address] [place] [address] * Acute Hepatitis Panel (10/06/2024 3:25 PM EST) Hepatitis B Surf Antigen Negative Negative 10/06/2024 7:03 PM EST [facility] Hepatitis C Antibody Negative Negative 10/06/2024 7:03 PM EST [facility] Hepatitis A Antibody IgM Negative Negative 10/06/2024 7:03 PM EST [facility] Hepatitis B Core Antibody IgM Negative Negative 10/06/2024 7:03 PM EST [facility] Blood Venous blood specimen / Unknown Venipuncture / Unknown 10/06/2024 3:25 PM EST 10/06/2024 3:25 PM EST us Aston Meyer MD LAB BLOOD ORDERABLES Final Resul t Performing Organization Address City/[facility]/ZIP Co de Phone Number [facility] [address] [place] [address] from Last 3 Months or Most Recently Relevant to Health Maintenance Insurance [employer] [facility] MEDICAID C[employer] Care Teams Cut Out Worker Relationship Specialty Start Date End Date System, Provider Not In, [place] [address] PCP - General Family Medicine 09/29/24
--- OUTSIDE RECORDS SUMMARY | 2025-05-26 15:07 | XMS_ITS | Clinical Summary ---
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
--- OUTSIDE RECORDS SUMMARY | 2025-05-26 15:08 | XMS_ITS | Clinical Summary ---
Author Organization [facility] Address [address] [place] [id number] Care Team Providers Care Block Mechanic Name Role Phone Jefe Schwartz MD Primary Care Provider [phone] Allergies Active Allergy Reactions Criticality Noted Date Comments Fentanyl Mental Status Change Low 10/26/2023 Pt gets mean broke 4 restraints and aggressive towards staff Medications vitamins (PRENATABS RX) 29-1 MG tablet tablet Take 1 tablet by mouth Daily. 30 tablet 11 07/25/20 24 025 Active valACYclovir (VALTREX) 500 MG tablet Take 1 tablet by mouth 2 (Two) Times a Day. Active estradiol (ESTRACE VAGINAL) 0.1 MG/GM vaginal creamIndicatio ns:Atrophic vaginitis Insert 1 gm intravaginally 1-3 times each week 1 each 12 04/17/20 25 Active metroNIDAZOLE (FLAGYL) 500 MG tablet Take 1 tablet by mouth 2 (Two) Times a Day for 7 days. 14 tablet 04/19/20 25 025 Active Problems Problem Noted Date Diagnosed Date [...] term delmisty colton 01/23/2025 Iron deficiency anemia secon ledy to inadequate dietary iron intake 01/12/2025 [...] IOL at 35 5/7wk superim preeclampsia ( 5-24) Dates by 8 w 2 d u/s. Mat21 09/14/24 low risk;c/w male. 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 07/27/24 baseline LDH and UA elevated. >UA 6.5 11/09/2024 anomaly scan at [facility] Worsening of iron deficiency anemia. Hematocrit [...] labetalol daily. Patient has a history of Fafty-Kzabbumll-Isipn syndrome and underwent an ablation at the [...] Further, a committee opinion published by the [employer] in April [...] women at high risk for preeclampsia ([employer] 2014; 161:819). In a 2020 update, [...] Raymundo and Jailyn, Obstet Gynecol 2008;112:359-72; Rohit COLLINS et al. 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 Cordero in [facility]. 10/11/2023 HSV 2 IgG positive; consistent with recurrent HSV2. Rx valtrex For suppression 500 mg daily. Obesity in , antepartum 10/26/2023 Overview (10/12/2024): BMI 44 Anomaly scan at [facility]. 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 Fernando in [place] Echo & 2 week holter monitor in August 2023 wnl per patient. PDC appt 11/04; ultrasound within normal limits and normal growth. EFW 57%. No follow-up ultrasound scheduled. Assessment & Plan (11/05/2023 12:32 PM EDT): Patient currently followed by cardiology in [place]. Patient with a history of SVT but has also had cardiac ablation. Patient reports a normal echo and Holter monitor performed in August. Patient asymptomatic today. Given his history patient will likely tolerate well without issues though given cardiac history patient could consider cardiology consultation within [facility] in case patient were to have issues [...] smear 08/17/2024 was negative. Threatened 07/25/2024 02/07/20 Overview (07/25/2024): 07/25/2024. Ultrasound with 5-week 3-day [...] Transfer of care @ 28 weeks from [facility]. FOB going to nursing school Chronic hypertension; no medication prior to [facility] HSV2 outbreak at 27 week visit Ghosh Parkinson's Tifqm-xrsdudzh-WDT Mild LFT elevation. Anemia 28 weeks hematocrit 29%.: on iron. PDC u/s 30 wk; EFW 57% Growth ultrasound 12/01 EFW 48%. AC 66%. Screening for cervical cancer 10/26/2023 10/26/2023 Overview (10/26/2023): Last Pap smear? Chronic hypertension affecting 10/26/2023 07/25/2024 Overview (12/10/2023): Transfer of care at [address] Cordero in [place] Baseline PEP, 24 Hour urine, HGBA1C, TSH drawn at [facility] (29wk); not on medication No meds [...] on hypertensive meds. Blood pressure today 115/67. Zjnoc-Uefedrhij-Ibcfd syndrome 10/26/2023 10/26/2023 Maternal anemia in , antepartum 10/26/2023 07/25/2024 Overview (12/02/2023): On iron supplementation. 11/05/2023 HCT 29.1%. 11/18/2023 Rx Accrufer 30 mg bid Encounters Date Type Department Care Team Description 04/19/2025 Results Follow-Up [facility] OBGYN [address] [facility] [address] [place] [phone] Aydin Kirkpatrick MD 04/17/2025 1:40 PM EDT Visit [facility] OBGYN [address] [facility] [address] [place] [phone] Aydin Kirkpatrick MD exam (Primary Dx); Acute vaginitis; Atrophic vaginitis; Consultation for female sterilization 04/17/2025 Travel 03/17/2025 Maternal Screening [facility] [address] [place] [address] Ivanna Downing, SUKUMAR 03/09/2025 Maternal Screening [facility] [address] [place] [address] Aracelis Mueller RN 03/06/2025 5:06 AM EDT Anesthesia Event [facility] LABOR DELIVERY [address] [place] [address] Mami Balbuena MD 03/06/2025 12:04 AM EDT - 03/08/2025 10:40 AM EDT Hospital Encounter [facility] MOTHER [facility]AB[facility] 4B [address] [place] [address] Aydin Kirkpatrick MD Discharge Disposition: Home or Self Care 03/06/2025 Travel 03/06/2025 - 03/06/2025 11:59 PM EDT Hospital Encounter [facility] LABOR AND DELIVERY PROCEDURES [address] [place] [phone] Discharge Disposition: Home or Self Care 03/02/2025 9:30 AM EDT Routine [facility] [address] [facility] [address] [place] [phone] Kartik Maurice APRN GA: 36w3d 03/02/2025 Travel 02/27/2025 10:50 AM EDT Ancillary Procedure [facility] OBGYN [address] [facility] [address] [place] [phone] 36 weeks gestation of ; Chronic hypertension affecting 02/27/2025 9:40 AM EDT Routine [facility] OBGYN [address] [facility] [address] [place] [phone] Aydin Kirkpatrick MD GA: 36w0d 02/27/2025 Prep for Surgery [facility] ORDERS ONLY [address] [place] [address] Aydin Kirkpatrick MD 02/27/2025 Travel 02/23/2025 3:15 PM EDT Routine [facility] OBGYN [address] [facility] [address] [place] [phone] Kartik Maurice APRN GA: 35w3d 02/23/2025 2:15 PM EDT Office Visit [facility] MATERNAL MEDICINE [address] [facility] [address] [place] [phone] Medhat De Anda MD Chronic hypertension affecting (Primary Dx); Poor growth affecting management of mother in third trimester, single or unspecified fetus 02/23/2025 2:03 PM EDT - 02/23/2025 11:59 PM EDT Hospital Encounter [facility] US PER DIAG CTR [address] [facility] [address] Aydin Kirkpatrick MD Poor growth affecting management of mother in third trimester, single or unspecified fetus Discharge Disposition: Home or Self Care 02/23/2025 Travel from Last 3 Months Immunizations Immunization [...] drink = 0.6 oz pur e alcohol) [facility] Utilities Answer Date Recorded In the past 12 months has e [employer], gas, oil, or water [employer] threatened to shut off services in your [...] all 03/06/2025 [facility] of Occupat ional Health - Occupational Stress [...] things needed for daily living? No 03/06/2025 Mckinney Depression Scale Answer Date Recorded Mckinney Depression Scale Total 7 04/17/2025 The thought [...] GED or equivalent No 03/06/2025 Preferred Language Polish 03/06/2025 PHQ-2 Answer Date Recorded Patient Health [...] Description 07/24/2025 11:00 AM EST Office Visit [facility] OBGYN [address] [place] [address] Aydin Kirkpatrick MD [address] [place] [address] 08/21/2025 11:20 AM EST Office Visit [facility] OBGYN [address] [place] [address] Aydin Kirkpatrick MD [address] [place] [address] Health Maintenance Due Date Last Done Comments [...] care, third trimester 35 weeks gestation of [facility] Routine 02/23/2025 2:44 PM EDT Poor growth affecting management of mother in third trimester, single or unspecified fetus SCANNED - PROCEDURE 02/23/2025 LIQUID-BASED PAP SMEAR WITH HPV GENOTYPING IF [...] 04/17/2025 04/17/2025 Comment:Swab Specimen source ( Narrative [facility] (AMBULAT[facility]) - 04/19/2025 5:10 PM EDT Test(s) 349106- Atopobium vaginae; 123683- BVAB 2; 686499- Megasphaera 1 was developed and its performance characteristics determined by [facility]. It has not been cleared or approved by the Food and Drug Administration. Test(s) 985416-Pzsipuv albicans, EARNESTINE; 302999-Btlrnpw glabrata, EARNESTINE; 833234-A parapsilosis/tropicalis; 647116-Jjsphnh lusitaniae, EARNESTINE; 175098-Tmvulro krusei, EARNESTINE was developed and its performance characteristics determined by [facility]. It has not been cleared or approved by the Food and Drug Administration. Performed at: 01 - [address] [id number] Custodian: Ina Couch MD, Phone: [phone] Aydin Kirkpatrick MD PATHOLOGY/CYTOLOGY ORDERABLES F inal Result [facility] ([facility]) [address] [place] [address], [facility] [address] [place] [address], * (ABNORMAL) CBC (No Diff) (03/08/2025 5:27 AM EDT) Only the most recent of2 resultswithin the time period is included. WBC 11.01(H) 3.40 - 10.80 10*3/mm3 03/08/2025 6:04 AM EDT [facility] RBC 2.82(L) 3.77 - 5.28 10*6/mm3 03/08/2025 6:04 AM EDT [facility] Hemoglobin 7.2(L) 12.0 - 15.9 g/dL 03/08/2025 6:04 AM EDT [facility] Hematocrit 24.1(L) 34.0 - 46.6 % 03/08/2025 6:04 AM EDT [facility] MCV 85.5 79.0 - 97.0 fL 03/08/2025 6:04 AM EDT [facility] MCH 25.5(L) 26.6 - 33.0 pg 03/08/2025 6:04 AM EDT [facility] MCHC 29.9(L) 31.5 - 35.7 g/dL 03/08/2025 6:04 AM EDT [facility] RDW 15.5(H) 12.3 - 15.4 % 03/08/2025 6:04 AM EDT [facility] RDW-SD 47.4 37.0 - 54.0 fl 03/08/2025 6:04 AM EDT [facility] MPV 11.8 6.0 - 12.0 fL 03/08/2025 6:04 AM EDT [facility] Platelets 213 140 - 450 10*3/mm3 03/08/2025 6:04 AM EDT [facility] Blood Venipuncture / Unknown 03/08/2025 5:27 AM EDT 03/08/2025 5:55 AM EDT us Kelly Patricia LAUNDRY SUPERINTENDENT LAB BLOOD ORDERABLES Final Result [facility]
[address] [place] [address], * (ABNORMAL) CBC Auto Differential (03/07/2025 5:07 AM EDT) WBC 9.80 3.40 - 10.80 10*3/mm3 03/07/2025 5:34 AM EDT [facility] RBC 2.90(L) 3.77 - 5.28 10*6/mm3 03/07/2025 5:34 AM EDT [facility] Hemoglobin 7.6(L) 12.0 - 15.9 g/dL 03/07/2025 5:34 AM EDT [facility] Hematocrit 24.7(L) 34.0 - 46.6 % 03/07/2025 5:34 AM EDT [facility] MCV 85.2 79.0 - 97.0 fL 03/07/2025 5:34 AM [facility] MCH 26.2(L) 26.6 - 33.0 pg 03/07/2025 5:34 AM [facility] MCHC 30.8(L) 31.5 - 35.7 g/dL 03/07/2025 5:34 AM [facility] RDW 15.0 12.3 - 15.4 % 03/07/2025 5:34 AM [facility] RDW-SD 46.5 37.0 - 54.0 fl 03/07/2025 5:34 AM [facility] MPV 11.9 6.0 - 12.0 fL 03/07/2025 5:34 AM [facility] Platelets 210 140 - 450 10*3/mm3 03/07/2025 5:34 AM [facility] Neutrophil % 67.5 42.7 - 76.0 % 03/07/2025 5:34 AM [facility] Lymphocyte % 21.3 19.6 - 45.3 % 03/07/2025 5:34 AM [facility] Monocyte % 5.8 5.0 - 12.0 % 03/07/2025 5:34 AM [facility] Eosinophil % 0.9 0.3 - 6.2 % 03/07/2025 5:34 AM [facility] Basophil % 0.4 0.0 - 1.5 % 03/07/2025 5:[facility] Immature Grans % 4.1(H) 0.0 - 0.5 % 03/07/2025 5:34 AM [facility] Neutrophils, Absolute 6.61 1.70 - 7.00 10*3/mm3 03/07/2025 5:34 [facility] Lymphocytes, Absolute 2.09 0.70 - 3.10 10*3/mm3 03/07/2025 5:34 [facility] Monocytes, Absolute 0.57 0.10 - 0.90 10*3/mm3 03/07/2025 5:34 AM EDT [facility] Eosinophils, Absolute 0.09 0.00 - 0.40 10*3/mm3 03/07/2025 5:34 AM EDT [facility] Basophils, Absolute 0.04 0.00 - 0.20 10*3/mm3 03/07/2025 5:34 AM EDT [facility] Immature Grans, Absolute 0.40(H) 0.00 - 0.05 10*3/mm3 03/07/2025 5:34 AM EDT [facility] nRBC 0.3(H) 0.0 - 0.2 /100 WBC 03/07/2025 5:34 AM EDT [facility] Blood Venipuncture / Unknown 03/07/2025 5:07 AM EDT 03/07/2025 5:16 AM EDT Aydin Kirkpatrick MD LAB BLOOD ORDERABLES Final Resu lt [facility]
[address] [place] [address], * Tissue Pathology Exam (03/06/2025 5:50 AM EDT) Case Report Surgical Pathology Report Case: [id number] Authorizing Provider: Aydin Kirkpatrick MD Collected: 03/06/2025 05:50 AM Ordering Location: [facility] Received: 03/06/2025 06:11 AM LABOR DELIVERY Pathologist: Shilpa Rascon MD Specimen: Placenta, Placenta, 37 weeks IUGR, hypertension 03/07/2025 11:25 AM EDT [facility] Clinical Information 37 weeks, IUGR, hypertension 03/07/2025 11:25 AM EDT [facility] Final Diagnosis Placenta, vaginal delivery: Mature placental parenchyma with increased perivillous and subchorionic fibrin deposition Three-vessel umbilical cord 03/07/2025 11:25 AM EDT [facility] at 1125 EDT Gross Description [...] spongy parenchyma with no gross lesions identified. Frame And Scrap Crusher sections are submitted as follows: 1A-umbilical cord with false knot and membrane roll 6I-zrty-hmximudsr disc with subchorionic fibrin 6C-aymq-rpbnejvyr disc at cord insertion site. LDP 03/07/2025 11:25 AM EDT [facility] Microscopic Description The slides are reviewed and demonstrate histopathologic features supporting the above rendered diagnosis. 03/07/2025 11:25 AM EDT [facility] Tissue Placental structure / Unknown Collection / Unknown 03/06/2025 5:50 AM EDT 03/06/2025 6:11 AM EDT us Aydin Kirkpatrick MD PATHOLOGY/CYTOLOGY ORDERABLES F inal Result [facility]
[address] [place] [address], * HC BH AN LABOR EPIDURAL KIT [...] evaluation and timeout performed Prep: Pt Position:sitting Registered Nurse Surgical Services:cap, gloves, sterile barrier, mask and gown Prep:chlorhexidine [...] mg/G Crea 03/06/2025 9:31 AM EDT [facility] Creatinine, Urine 108.2 mg/dL 03/06/2025 9:31 AM EDT [facility] Total Protein, Urine 43.2 mg/dL 03/06/2025 9:31 AM EDT [facility] Urine Urine specimen obtained by clean catch procedure / Unknown Collection / Unknown 03/06/2025 1:19 AM EDT 03/06/2025 1:19 AM EDT Aydin Kirkpatrick MD URINE ORDERABLES Final Result [facility]
[address] [place] [address], * Treponema pallidum AB w/Reflex RPR (03/06/2025 1:11 AM EDT) Treponemal AB Total Non-Reacti ve Non-React ramya 03/06/2025 1:42 PM EDT [facility] Blood Venipuncture / Unknown 03/06/2025 1:11 AM EDT 03/06/2025 1:11 AM EDT Narrative [facility] - 03/06/2025 1:42 PM EDT Reactive results will reflex RPR testing. us Aydin Kirkpatrick MD LAB BLOOD ORDERABLES Final Resu lt [facility]
[address] [place] [address], [place] [phone] * (ABNORMAL) Iron Profile w/o Ferritin (03/06/2025 1:11 AM EDT) Iron 54 37 - 145 mcg/dL 03/06/2025 6:36 AM EDT [facility] Iron Saturation (TSAT) 8(L) 20 - 50 % 03/06/2025 6:36 AM EDT [facility] Transferrin 482(H) 200 - 360 mg/dL 03/06/2025 6:36 AM EDT [facility] TIBC 718(H) 298 - 536 mcg/dL 03/06/2025 6:36 AM EDT [facility] Blood Venipuncture / Unknown 03/06/2025 1:11 AM EDT 03/06/2025 2:53 AM EDT us Aydin Kirkpatrick MD LAB BLOOD ORDERABLES Final Resu lt [facility]
[address] [place] [address], [place] [phone] * (ABNORMAL) Uric Acid (03/06/2025 1:11 AM EDT) Uric Acid 6.6(H) 2.4 - 5.7 mg/dL 03/06/2025 3:12 AM EDT [facility] Comment:Falsely depressed re sults may occur on samples drawn from patients receiving N-Acetylcysteine (NAC) or Metamizole. Blood Venipuncture / Unknown 03/06/2025 1:11 AM EDT 03/06/2025 2:53 AM EDT us Aydin Kirkpatrick MD LAB BLOOD ORDERABLES Final Resu lt Performing Organization Address [facility]/ZIP Co de Phone Number [facility]
[address] [place] [address], [place] [phone] * Lactate Dehydrogenase (03/06/2025 1:11 AM EDT) LDH 187 135 - 214 U/L 03/06/2025 3:12 AM EDT [facility] Blood Venipuncture / Unknown 03/06/2025 1:11 AM EDT 03/06/2025 2:53 AM EDT us Aydin Kirkpatrick MD LAB BLOOD ORDERABLES Final Resu lt Performing Organization Address [facility] de Phone Number [facility]
[address] [place] [address], [place] [phone] * (ABNORMAL) Ferritin (03/06/2025 1:11 AM EDT) Ferritin 7.88(L) 13.00 - 150.00 ng/mL 03/06/2025 6:36 AM EDT [facility] Blood Venipuncture / Unknown 03/06/2025 1:11 AM EDT 03/06/2025 2:53 AM EDT Narrative [facility] - 03/06/2025 6:36 AM EDT Results may be falsely decreased if patient taking Biotin. us Aydin Kirkpatrick MD LAB BLOOD ORDERABLES Final Resu lt Performing Organization Address City/[facility] Co de Phone Number [facility]
[address] [place] [address], * (ABNORMAL) Comprehensive Metabolic Panel (03/06/2025 1:11 AM EDT) [facility] Glucose 84 65 - 99 mg/dL 03/06/2025 3:12 AM EDT [facility] BUN 8.9 6.0 - 20.0 mg/dL 03/06/2025 3:12 AM EDT [facility] Creatinine 0.87 0.57 - 1.00 mg/dL 03/06/2025 3:12 AM EDT [facility] Sodium 137 136 - 145 mmol/L 03/06/2025 3:12 AM EDT [facility] Potassium 4.0 3.5 - 5.2 mmol/L 03/06/2025 3:12 AM EDT [facility] Chloride 106 98 - 107 mmol/L 03/06/2025 3:12 AM EDT [facility] CO2 18.4(L) 22.0 - 29.0 mmol/L 03/06/2025 3:12 AM EDT [facility] Calcium 8.7 8.6 - 10.5 mg/dL 03/06/2025 3:12 AM EDT [facility] Total Protein 6.3 6.0 - 8.5 g/dL 03/06/2025 3:12 AM EDT [facility] Albumin 3.4(L) 3.5 - 5.2 g/dL 03/06/2025 3:12 AM EDT [facility] ALT (SGPT) 22 1 - 33 U/L 03/06/2025 3:12 AM EDT [facility] AST (SGOT) 16 1 - 32 U/L 03/06/2025 3:12 AM EDT [facility] Alkaline Phosphatase 113 39 - 117 U/L 03/06/2025 3:12 AM EDT [facility] Total Bilirubin 0.7 0.0 - 1.2 mg/dL 03/06/2025 3:12 AM EDT [facility] Globulin 2.9 gm/dL 03/06/2025 3:12 AM EDT [facility] Comment:Calculated Result A/G Ratio 1.2 g/dL 03/06/2025 3:12 AM EDT [facility] BUN/Creatinine Ratio 10.2 7.0 - 25.0 03/06/2025 3:12 AM EDT [facility] Anion Gap 12.6 5.0 - 15.0 mmol/L 03/06/2025 3:12 AM EDT [facility] eGFR 95.6 >60.0 mL/min/1.7 3 03/06/2025 3:12 AM EDT [facility] Blood Venipuncture / Unknown 03/06/2025 1:11 AM EDT 03/06/2025 2:53 AM EDT [facility] - 03/06/2025 3:12 AM EDT GFR [...] MD LAB BLOOD ORDERABLES Final Resu lt [facility]
[address] [place] [address], * Type & Screen (03/06/2025 1:03 AM EDT) ABO Type A 03/06/2025 1:37 AM EDT [facility] RH type Positive 03/06/2025 1:37 AM EDT [facility] Antibody Screen Negative 03/06/2025 1:37 AM EDT [facility] T&S Expiration Date 03/09/2025 11:59:59 PM 03/06/2025 1:37 AM EDT [facility] Blood Venipuncture / Unknown 03/06/2025 1:03 AM EDT 03/06/2025 1:03 AM EDT Aydin Kirkpatrick MD BLOOD BANK TEST ORDERABLES Edit ed Result - Final Performing Organization Address City/[facility]/ZIP Co de Phone Number [facility]
[address] [place] [address], [place] [phone] * POC Urinalysis Dipstick (03/02/2025 9:58 AM EDT) Glucose, UA Negative Negative mg/dL [facility] Protein, POC Negative Negative mg/dL [facility] Urine 03/02/2025 9:58 AM EDT Kartik Maurice APRN POINT OF CARE TEST O RDERABLES Final Result Performing Organization Address City/[facility]/ZIP Co de Phone Number [facility]
[address] [place] [address], [place] [phone] * Procedure Scanned (03/02/2025) Kartik Maurice APRN PROCEDURE/MINOR SURG ICAL ORDERABLES Final Result * US Biophysical Profile;With Non-Stress Testing (02/27/2025 11:10 AM EDT) Anatomical Region Laterality Modality Body Ultrasound 02/27/2025 11:5 2 AM EDT Narrative 02/27/2025 11:12 AM EDT PAT NAME: LISA RILEY MED REC#: [id number] DA: 2000 PAT GEND: F PAT TYPE: O EXAM JAYSON: [id number] REF PHYS AYDIN KIRKPATRICK Indication ======== Non [...] of testing for the condition being monitored. Denture Model Maker: RT Kyle Pringle, [facility] Physician: Aydin Kirkpatrick MD Electronically signed by: Aydin Kirkpatrick MD at: 11:12 Procedure Note Aydin Kirkpatrick MD - 02/27/2025 PAT NAME: LISA RILEY MED REC#: [id number] DA: [id number] PAT GEND: F PAT TYPE: O EXAM JAYSON: [id number] REF PHYS AYDIN KIRKPATRICK Indication ======== Non reactive NST; Morbid obesity BMI 45 Comparison Studies The findings of this study are compared to the prior ultrasound studydated 02/23/25 Method ======= Voluson E6, Transabdominal ultrasound examination. View: Sufficient ========= Hernandez . Number of fetuses: 1 Dating ====== Cycle:irregular cycle Method of dating:based on stated CONG GA by prior [id number] w + 0 d CONG by prior assessment:03/27/2025 Previous Ultrasound on:07/25/2024 Type of prior assessment:GS mean Previous dating:based on stated CONG, selected on 02/03/2025 Agreed CONG of previous datin03/27/2025 Assigned:based on stated CONG, selected on 02/27/2025 Assigned [id number] w + 0 d Assigned CONG:03/27/2025 [id number] d General Evaluation Cardiac activity present. FHR [...] schedule of testing for the condition beingmonitored. Denture Model Maker: Annamaria Eli RT R, [facility] Physician: Aydin Kirkpatrick MD Electronically signed by: Aydin Kirkpatrick MD at: 11:12 us Aydin Kirkpatrick MD IMG US ORDERABLES Final Result * POC Protein, Urine, Qualitative, Dipstick (02/27/2025 10:27 AM EDT) Only the most recent of2 resultswithin the time period is included. Protein, POC Negative Negative mg/dL [facility] Lot Number 0 [facility] Expiration Date 0 [facility] Urine 02/27/2025 10:2 7 AM EDT Aydin Kirkpatrick MD POINT OF CARE TEST ORDERABLES F inal Result Performing Organization Address City/[facility]/ZIP Co de Phone Number [facility]
[address] [place] [address], [place] [phone] * POC Glucose, Urine, Qualitative, Dipstick (02/27/2025 10:27 AM EDT) Only the most recent of2 resultswithin the time period is included. Glucose, UA Negative Negative mg/dL [facility] Urine 02/27/2025 10:2 7 AM EDT Aydin Kirkpatrick MD POINT OF CARE TEST ORDERABLES F inal Result Performing Organization Address [facility]/ZIP Co de Phone Number [facility]
[address] [id number], [place] [phone] * Procedure Scanned (02/27/2025) us Aydin Kirkpatrick MD PROCEDURE/MINOR SURGICAL ORDERA BLES Final Result * [facility] (02/23/2025 2:44 PM EDT) Anatomical Region Laterality Modality Ultrasound 02/23/2025 2:19 PM EDT Narrative 02/23/2025 2:48 PM EDT PAT NAME: LISA RILEY MED REC#: [id number] DA: 2000 PAT GEND: F PAT TYPE: O EXAM JAYSON: [id number] REF AYDIN HOLCOMB Comparison Studies The findings of this [...] EFW (oz) 11 oz EFW by: Hadlock ([id number]-BR-GV-FL) Extended Cav. septi pel. tr 5.9 mm [...] Normal Heart / Thorax 3-vessel view: Normal 6-brxwtc-rxuwfpt view: normal Stomach: Appears normal Kidneys: Appears [...] Recommend 37 week delivery. Coding ======= Description: 31522-03 Follow Up Ultrasound Description: 58161-79 BPP without NST Description: 04427-62 Doppler Umbilical Artery Denture Model Maker: Destini Hall RDOH Physician: Medhat De Anda MD, FACOG Electronically signed by: Medhat De Anda MD, FACOG at: 14:48 Procedure Note Medhat De Anda MD - 02/23/2025 PAT NAME: LISA RILEY MED REC#: [id number] DA: 2000 PAT GEND: F PAT TYPE: O EXAM JAYSON: [id number] REF PHYS AYDIN KIRKPATRICK Comparison Studies The findings of this study are compared to the prior ultrasound studydated 01/25/25. Patient Status Outpatient Indication ======== contractions. CHTN. Chronic proteinuria. Maternal Ghosh ParkinsonWhite. Hx PTD 35 wk - preeclampsia. Morbid obesity BMI 47 Maternal Assessment Tfodqh959 cm Ljbuyu837 kg Weight (lb)273 lb BMI47.19 kg/m Method ======= Transabdominal ultrasound examination. View: Limited by patient bodyhabitus ========= Hernandez . Number of fetuses: 1 Dating ====== Cycle:irregular cycle GA by prior tgtrltaavj16 w + 3 d CONG by prior [...] GA35 w + 3 d Assigned CONG:03/27/2025 cvralc914 d Biometry Standard BPD85.5 mm 34w 3d 27% Hadlock VML853.7 mm 36w 6d 79% Van HC315.5 mm 35w 3d 18% Hadlock Cerebellum tr45.4 mm 34w 6d 27% Hill AC313.1 mm 35w 2d 53% Hadlock Femur67.2 mm 34w 4d 22% Hadlock Ognzhjt30.2 mm 34w 2d 40% Van HC / AC1.01 EFW2,567 g 34w 6d 37% Hadlock EFW (lb)5 lb EFW (oz)11 oz EFW by:Hadlock (KBJ-TA-LY-FL) Extended Cav. septi pel. tr5.9 mm CM6.7 mm 26% Nicolaides Head / Face / Neck Cephalic index0.77 14% Nicolaides Extremities / Bony Struc FL / BPD0.79 FL / HC0.21 FL / AC0.21 Other Structures YMD999 bpm General Evaluation Cardiac activity present. FHR 177 bpm. movements present. Presentation cephalic. Placenta Placental site: posterior, fundal. Amniotic fluid Amount of AF: normal. MVP 4.8 cm. ELIZ[place] 13.6 cm. Q1 3.2 cm,Q2 4.8 cm, Q3 3.4 cm, Q4 2.3 cm. Anatomy Cranium:Normal Cavum septi pellucidi:Normal Cerebellum:Normal Cisterna magna:Normal 4-chamber view:Appears normal RVOT view:Normal LVOT view:Normal Heart / Thorax 3-vessel view:Normal 2-qbqxwb-nmwjqxw view:normal Stomach:Appears normal Kidneys:Appears normal Bladder:Appears normal [...] indicated. Recommend 37 week delivery. Coding ======= Description:77352-47 Follow Up Ultrasound Description:20607-41 BPP without NST Description:11534-09 Doppler Umbilical Artery Denture Model Maker: Destini Hall RDMS Physician: Medhat De Anda MD, FACOG Electronically signed by: Medhat De Anda MD, FACOG at: 14:48 us Aydin Kirkpatrick MD [facility] US ORDERABLES Final Result * Procedure Scanned (02/23/2025) us Kartik Maurice LAUNDRY SUPERINTENDENT PROCEDURE/MINOR SURG ICAL ORDERABLES Final Result * LIQUID-BASED PAP SMEAR WITH HPV GENOTYPING IF ASCUS (KARAN,COR,MAD) (08/17/2024 3:35 PM EST) [facility] Reference Lab Report [facility] [address] [place] [address] or [phone] Luis Boyle M.D., Sorter/Assay Tech PATIENT NAME [facility]ORAT[facility]. [id number] AGE SEX SSN CLIENT REF # [facility] 23 2000 F [id number] [facility] [id number] REQUESTING Severo. [place] [address] ARTURO FELIZ DATE COLLECTED DATE RECEIVED DATE [...] HISTORY: Essential hypertension , unspecified gestational age INTRANET DEVELOPER: LUIS ANTONIO HOOKER (ASCP) CPT CODES: 37781 08/19/2024 10:47 AM EST [facility] ThinPrep Vial Cervix uteri structure / Unknown Collection / Unknown 08/17/2024 3:35 PM EST 08/17/2024 3:36 PM EST us Arturo Feliz MD PATHOLOGY/CYTOLOGY ORDERAB LES Final Result [facility]
[address] [place] [address], * (ABNORMAL) Obstetric Panel (08/17/2024 3:31 PM EST) [facility] Hepatitis B Surface Ag Negative Negative [facility] [...] 08/17/2024 3:31 PM EST 08/18/2024 Narrative [facility] PAULINE HENRRY (AMBULATORY) - 08/18/2024 10:35 AM EST Performed at: 01 - [facility] [address] [place], [place] [id number] Custodian: Edgar Mccartney PhD, Phone: [phone] us Arturo Feliz MD LAB BLOOD ORDERABLES Final Result Performing Organization Address City/State/[facility] Co de Phone Number [facility] PAULINE SALES (AMBULATORY) [address] [place] [address], [place] [phone] [facility] [address] [place] [address], from Last 3 Months or Most Recently Relevant to Health Maintenance Insurance [facility] HEALTH BENEFIT [employer] [facility] Advance Directives * CPR (Attempt to Resuscitate) [...] Of Support Discussed With: Patient Care Teams Block Mechanic Relationship Specialty Start Date End Date Jefe Schwartz MD [address] [place] [address] PCP - General Adolescent Medicine 12/14/23
--- OUTSIDE RECORDS SUMMARY | 2025-05-26 15:08 | XMS_ITS | Encounter Summary ---
Author Organization Healthcare Address [address] [place] [address] Care Team Providers Care Bioinformatics Technician Name Role Phone System, Provider Not In MD Primary Care Provider Unavailable Reason for Referral * Consultation (Routine) - Closed Specialty Diagnoses / Procedures Referred By Jeanne roberts Referred To Contact Nephrology Diagnoses Proteinuria complicating , unspecified trimester Izaiah Mcdaniels MD [address] [facility] [address] [place] [address] Phone: tel: fax: [facility] [place], [facility] Nephrology, Bone & Mineral Metabolism [address] [facility], [address] [place] [address] Phone: tel: fax: Referral ID Status Reason Start Date Expiration Date V isits Requested Visits Authorized [id number] Closed Specialty Services Required 09/27/2024 03/29/2026 1 1 Encounter Details Date Type Department Care Team (Late st Contact Info) Description 09/27/2024 Community Orders Community Practice [address] [place] [address] Izaiah Mcdaniels MD [address] [place] [address] Proteinuria complicating , unspecified trimester (Primary Dx) [...] Description 06/30/2025 1:20 PM EST Office Visit [address] [place] [phone] Duke White MD [address] [place] [address] Scheduled Referrals Name Type Priority Associated Diagnoses Orde r Schedule Ambulatory referral to Nephrology Outpatient Referral Routine Proteinuria complicating , unspecified trimester Expected: 09/27/2024 (Approximate), Expires: 03/27/2026 documented as of this encounter Visit Diagnoses Diagnosis Proteinuria complicating , unspecified trimester- Primary documented in this encounter Care Teams Bioinformatics Technician Relationship Specialty Start Date End Date System, Provider Not In, [place] [address] PCP - General Family Medicine 09/29/24 documented as of this encounter
== END 2025-05-26 23:59 | disposition home or self-care (01) ==
LOC: RAD 15:05
PROVIDERS: PCP Nurse Practitioner Family; Visit Provider Nurse Practitioner Family
DX: M77.32 Calcaneal spur, left foot (principal)
CPT/HCPCS: 73630

== ENCOUNTER 2025-07-18 15:29 | Outpatient (CLI) | payer OTHER, SELFPAY ==
[2025-07-18 15:59] LABS: Hematocrit 36.4 % (37.0-47.0); Hemoglobin 12.0 g/dL (12.2-16.2); Immature Granulocytes % 0.8 %; Mean Corpuscular HGB Conc 33.0 g/dL (31.8-35.4); Mean Corpuscular Hemoglobin 27.3 pg (27.0-31.2); Mean Corpuscular Volume 82.9 fl (81-99); Nucleated Red Blood Cells % 0 %; Platelet Count 294 K/mm3 (142-424); Red Blood Count 4.39 M/mm3 (4.20-5.40); Red Cell Distribution Width-SD 41.2 fL; White Blood Count 10.0 K/mm3 (4.8-10.8)
[2025-07-18 16:24] LABS: Iron 46 ug/dL (37-170)
[2025-07-18 16:36] LABS: Total Iron Binding Capacity 311 ug/dL (265-497)
[2025-07-18 17:06] LABS: Ferritin 51.1 ng/ml (6.24-137)
== END 2025-07-18 23:59 | disposition home or self-care (01) ==
LOC: LAB 15:30
PROVIDERS: PCP Nurse Practitioner Family; Visit Provider Internal Medicine Medical Oncology
DX: D50.9 Iron deficiency anemia, unspecified (principal)
CPT/HCPCS: 36415; 82728; 83540; 83550; 85025

== ENCOUNTER 2025-07-20 11:49 | Outpatient (CLI) | payer OTHER, SELFPAY ==
--- NOTE | 2025-07-20 11:51 | XR_ITS ---
FINAL REPORT CLINICAL HISTORY: left knee pain FINDINGS: LEFT KNEE Three views were obtained. There is no fracture or dislocation. The joint spaces appear normal. No soft tissue abnormality is identified. IMPRESSION: No acute process. Reviewed, Interpreted and Dictated by Lam Martin MD Transcribed by Amanda Stahl Authenticated and [facility]
--- NOTE | 2025-07-20 11:51 | XR_ITS ---
FINAL REPORT CLINICAL HISTORY: left foot pain FINDINGS: LEFT FOOT Three views were obtained. There is no fracture or dislocation. The joint spaces appear normal. No soft tissue abnormality is identified. There is a moderate plantar spur which is larger than expected for patient's age. IMPRESSION: Moderate plantar spur. Reviewed, Interpreted and Dictated by Lam Martin MD Transcribed by Amanda Stahl Authenticated and [facility]
== END 2025-07-20 23:59 | disposition home or self-care (01) ==
LOC: RAD 11:50
PROVIDERS: PCP Nurse Practitioner Family; Visit Provider Physician Assistant
DX: M77.32 Calcaneal spur, left foot (principal); M25.562 Pain in left knee
CPT/HCPCS: 73562; 73630

== ENCOUNTER 2025-07-20 21:55 | Emergency (ER) | payer OTHER, SELFPAY ==
[2025-07-20 22:05] VITALS: BP 136/78; PULSE 108; RESP 18; TEMP 37.1; O2SAT 98; BMI 45.1
--- OUTSIDE RECORDS SUMMARY | 2025-07-20 22:05 | XMS_ITS | Clinical Summary ---
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
--- OUTSIDE RECORDS SUMMARY | 2025-07-20 22:05 | XMS_ITS | Encounter Summary ---
Author Organization Healthcare Address [address] [place] [address] Care Team Providers Care Cutter Woodwind Reeds Name Role Phone System, Provider Not In MD Primary Care Provider Unavailable Reason for Referral * Consultation (Routine) - Authorized Specialty Diagnoses / Procedures Referred By Jeanne roberts Referred To Contact Nephrology Diagnoses Proteinuria complicating , unspecified trimester Izaiah Mcdaniels MD [facility] Nephrology, Bone & Mineral Metabolism [address] [facility], [address] [place] [address] Phone: tel: fax: Referral ID Status Reason Start Date Expiration Date Visits Requested Visits Authorized [id number] Authorized Specialty Services Required 02/13/2025 08/15/2026 1 1 Encounter Details Date Type Department Care Team (Latest Contact Info) Description 02/13/2025 Community [facility] Community Practice [address] [place] [address] Izaiah Mcdaniels MD Proteinuria complicating , unspecified trimester (Primary Dx) Social History Tobacco Use Types Packs/Day Years Used Date Smoking Tobacco: Former Cigarettes 0 Q uit: 2021 Passive Smoke Exposure: Past [...] as of this encounter Plan of Treatment Scheduled Referrals Name Type Priority Associated Diagnoses [...] documented as of this encounter Care Teams Cutter Woodwind Reeds Relationship Specialty Start Date End Date System, Provider Not In, [place] [address] PCP - General Family Medicine 09/29/24 documented as of this encounter
--- OUTSIDE RECORDS SUMMARY | 2025-07-20 22:05 | XMS_ITS | Encounter Summary ---
[facility] Organization [facility] Address [address] [place] [address] Care Team Providers Care Public Works Inspector Name Role Phone Jefe Schwartz MD Primary Care Provider [phone] Encounter Details Date Type Department Care Team (Late st Contact Info) Description 12/15/2024 Results Follow-Up [facility] [address] [facility] [address] [place] [phone] Izaiah Mcdaniels MD Social History Tobacco Use Types Packs/Day Years Used Date Smoking Tobacco: Former Cigarettes Q uit: 01/2024 Smokeless Tobacco: Never Comments:Vape. Alcohol Use Standard Drinks/Week Comments Never 0 (1 standard drink = 0.6 oz pur e alcohol) [facility] Utilities Answer Date Recorded In the past 12 months has [employer] electric, gas, oil, or water company threatened [...] hard at all 12/12/2023 [facility] [place] of Occupat ional Health - Occupational Stress [...] things needed for daily living? No 12/12/2023 [place] Depression Scale Answer Date Recorded [place] Depression Scale Total 11 02/23/2024 The thought [...] GED or equivalent No 12/12/2023 Preferred Language [place] Islander 12/12/2023 PHQ-2 Answer Date Recorded Retired [...] on filedocumented in this encounter Care Teams Public Works Inspector Relationship Specialty Start Date End Date Jefe Schwartz MD [address] [facility] [address] [place] [address] PCP - General Adolescent Medicine 12/14/23 documented as of this encounter
--- OUTSIDE RECORDS SUMMARY | 2025-07-20 22:05 | XMS_ITS | Encounter Summary ---
Author Organization [employer] ([place], [place], [place], [place], [place]) Address [address] [place] [address] Care Team Providers Care Hot Dip Galvanizer Name Role Phone Unavailable Primary Care Provider Unavailabl e Encounter Details Date Type Department Care Team (Late st Contact Info) Description 10/15/2018 Transcribed Document [facility] [address] [place] [address] ProviderFeroz MD [address] [place], [place] [address] Social History Tobacco Use Types Packs/Day Years [...] - Feroz ProviderMD - 10/15/2018 7:32 AM BLOCKER POLISHING Pre Procedure Adult Entered On: 10/15/2018 7:38 EST Performed On: 10/15/2018 7:32 EST by DILMA WHELAN, RN Height and Weight, Clinical Dosing Height Source : Stated Height Entry Format : [place] Height, Feet : 0 ft(Converted to: 0 cm, 0 Inch) Height, Inches : 65 Inch(Converted to: 5 ft 5 Inch, 165.10 cm) Clinical Height : 165.1 cm Weight Source : Standing scale Weight Entry Format : [place] Clinical Dosing Weight : 103.64 kg Weight, Pounds : 228 lb Body Surface Area (BSA) : 2.09 m2 Body Mass Index : 38 kg/m2 (HI) [place] Body Weight : 57 kg DILMA WHELAN [...] Updated: 10/15/2018 07:33:23 EST by DILMA WHELAN, SUKUMAR) Infectious Disease History Infectious Disease History : [...] Emergency Contact #1 : Aravind kohler - [phone] Emergency Contact #1 Phone Number : - Emergency Contact #1 Relationship : - Emergency Contact #2 : - Emergency Contact #2 Phone Number : - Emergency Contact #2 Relationship : - Primary Language : Gibraltarian Communication Barrier : None DILMA WHELAN RN [...] Scale Risk Level : 0-24 Low Risk Rodessa Fall Interventions : Wheels locked DILMA WHELAN [...]
--- OUTSIDE RECORDS SUMMARY | 2025-07-20 22:05 | XMS_ITS | Referral Summary ---
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
--- OUTSIDE RECORDS SUMMARY | 2025-07-20 22:05 | XMS_ITS | Encounter Summary ---
Author Organization [employer] ([place], [place], [place], [place], [place]) Address [address] [place] [address] Care Team Providers Care Machine Feed Operator Name Role Phone Unavailable Primary Care Provider Unavailabl e Encounter Details Date Type Department Care Team (Late st Contact Info) Description 10/15/[address] [facility] Family Medicine [address] [place] [address] ProviderFeroz MD [address] [place], [place] [address] Social History Tobacco Use Types Packs/Day Years [...] Conversion Note - Historical ProviderMD - 10/15/2018 4:42 PM INFANTRY WEAPONS CREWMEMBER Nursing Discharge Summary Entered On: 10/15/2018 16:43 EST Performed On: 10/15/2018 16:42 EST by RYAN QUINTERO platform supervisor Documentation Patient Disposition, General : Discharge Discharge To : Home with ambulatory/outpatient follow-up Mode Of Departure, General Discharge : Private vehicle Accompanied By, Discharge : Grandparent IV Discontinued : Yes Personal Belongings With Patient : Yes Teaching Method : Demonstration, Explanation Teaching Evaluation : Returns demonstration, Verbalizes understanding RYAN QUINTERO RN - 10/15/2018 16:42 EST Electronically signed by Kateryna [facility] Conversion Supercharger Repair Supervisor Cerner at 11/25/2022 5:03 PM CDT documented in this encounter Plan of Treatment Not on file documented as of this encounter Visit Diagnoses Not on filedocumented in this encounter
--- OUTSIDE RECORDS SUMMARY | 2025-07-20 22:05 | XMS_ITS | Encounter Summary ---
Author Organization [employer] ([place], [place], [place], [place], [place]) Address [address] [place] [address] Care Team Providers Care Union Carpenter Name Role Phone Unavailable Primary Care Provider Unavailabl e Encounter Details Date Type Department Care Team (Late st Contact Info) Description 10/15/2018 Transcribed Document [facility] [address] [place] [address] ProviderFeroz MD [address] [place] [place], [place] [address] Social History Tobacco Use Types Packs/Day Years [...] - Historical ProviderMD - 10/15/2018 7:45 AM LAY MIDWIFE Event Note Entered On: 10/15/2018 7:46 EST Performed On: 10/15/2018 7:45 EST by DILMA WHELAN RN Event Note Event Location : Other: 0745- Dr fuentes in to expain procedure rpe procedure and urine hct done as ordered/ protocol pre procedure - neg DILMA WHELAN, SUKUMAR - 10/15/2018 7:45 EST documented in this encounter Plan of Treatment Not on file documented as of this encounter Visit Diagnoses Not on filedocumented in this encounter
--- OUTSIDE RECORDS SUMMARY | 2025-07-20 22:05 | XMS_ITS | Encounter Summary ---
Author Organization [employer] ([place], [place], [place], [place], [place]) Address [address] [place] [address] Care Team Providers Care Materials Engineer Name Role Phone Unavailable Primary Care Provider Unavailabl e Encounter Details Date Type Department Care Team (Late st Contact Info) Description 10/15/2018 Transcribed Document [facility] [place] [address] [place] [address] ProviderFeroz MD [address] [place] [address] Social History Tobacco Use Types Packs/Day [...] Feroz Richter MD - 10/15/2018 4:48 PM OCULAR CARE TECHNICIAN [address] , [place] [address] Patient Copy Patient Information: Name: SARBJIT RILEY Current Date: 10/15/2018 16:48:56 : 2000 Patient Address: [place] [address] Patient Attending Physician: Primary Care Provider: SHANI LUDWIG MD Primary Care Provider Discharge Diagnosis: Weight on Admission: 228 lb, 0 oz Comment: Follow-up Instructions: With: Address: When: BELA MARQUES [address] [place] [address] Business (1) Within 2 weeks [...] Document Reviewed: 08/29/2011 ExitCare? Patient Information ?2014 [employer]. Moderate Conscious Sedation, Adult, Care After These [...] you are awake and alert. ??? Take jbnn-hfz-tmvxicg and prescription medicines only as told by [...] 11/15/2016 Elsevier Interactive Patient Education ? 2017 [employer] Cardiac Ablation Cardiac ablation is a procedure to stop some heart tissue from causing problems. The heart has many electrical connections. Sometimes these connections cause the heart to beat very fast or irregularly. Removing some of the problem areas can improve heart rhythm or make it normal. Ablation is done for people who: ??? Have Lkjon-Otplttqrx-Ubzgc syndrome. ??? Have other fast heart rhythms [...] 03/29/2014 Document Revised: 01/01/2017 Document Reviewed: 12/22/2013 ElseZumobi Interactive Patient Education ? 2017 [employer]. CIGARETTE SMOKING: The facts are clear, cigarette smoking will shorten your life. Smoking can cause many illnesses along the way. As a healthcare provider, we recommend that you stop smoking. Assistance with quitting is available by contacting 1-313-FYRC-NOW. This is a free resource providing counseling, [...] Be sure to sign up for the [employer] patient portal, which gives you 02/03 access to your medical information ??? including these discharge instructions ??? using your computer, smartphone, or tablet. Just go to [employer] to get started. Questions? Call . [facility] would like to thank you for allowing us to assist you with your healthcare needs. OSVALDO Nunes MADISON EVELYN ROSE, (or representative phlebotomy services) have received the above patient education materials/instructions and have verbalized understanding: Patient Signature _ Date/Time Patient Plumbing Drafter Signature (if needed) Date/Time Clinician/Hospital Plumbing Drafter Signature (if needed) Date/Time documented in this encounter Plan of Treatment Not on file documented as of this encounter Visit Diagnoses Not on filedocumented in this encounter
--- OUTSIDE RECORDS SUMMARY | 2025-07-20 22:05 | XMS_ITS | Encounter Summary ---
[facility] Address [address] [place] [id number] Care Team Providers Care Litigation Specialist Name Role Phone Jefe Schwartz MD Primary Care Provider [phone] Encounter Details Date Type Department Care Team (Late st Contact Info) Description 11/25/2024 Results Follow-Up [facility] [address] [place] [address] Izaiah Mcdaniels MD Social History Tobacco Use Types Packs/Day Years Used Date Smoking Tobacco: Former Cigarettes Q uit: 01/2024 Smokeless Tobacco: Never Comments:Vape. Alcohol Use Standard Drinks/Week Comments Never 0 (1 standard drink = 0.6 oz pur e alcohol) [facility] Utilities Answer Date Recorded In the past 12 months has [email or web address] electric, gas, oil, or water company threatened [...] and heating? Not hard at all 12/12/2023 [facility] [place] of Occupat ional Health - Occupational Stress [...] things needed for daily living? No 12/12/2023 [place] Depression Scale Answer Date Recorded [place] Depression Scale Total 11 02/23/2024 The thought [...] GED or equivalent No 12/12/2023 Preferred Language Peruvian 12/12/2023 PHQ-2 Answer Date Recorded Retired PHQ-9: Brief Depression Severity Measure Score 0 12/12/2023 Comments Yes Sex and Gender Information Value Date Recorded Sex Assigned at Female 02/09/2025 9:23 PM EDT Legal Sex Female 11:40 AM EDT Gender Identity Not on file Sexual Orientation Choose not to disclose 2024 9:23 PM EDT documented as of this encounter Plan of Treatment Not on file documented as of this encounter Visit Diagnoses Not on filedocumented in this encounter Care Teams Litigation Specialist Relationship Specialty Start Date End Date Jefe Schwartz MD [facility] [address] [place] [address] PCP - General Adolescent Medicine 12/14/23 documented as of this encounter
--- OUTSIDE RECORDS SUMMARY | 2025-07-20 22:05 | XMS_ITS | Encounter Summary ---
Author Organization Healthcare Address [address] [place] [address] Care Team Providers Care Translator Name Role Phone System, Provider Not In MD Primary Care Provider Unavailable Reason for Referral * Consultation (Routine) - Closed Specialty Diagnoses / Procedures Referred By Jeanne roberts Referred To Contact Nephrology Diagnoses Proteinuria complicating , unspecified trimester Izaiah Mcdaniels MD [facility] Nephrology, Bone & Mineral Metabolism [address] [facility], [address] [place] [address] Phone: tel: fax: Referral ID Status Reason Start Date Expiration Date V isits Requested Visits Authorized [id number] Closed Specialty Services Required 09/27/2024 03/29/2026 1 1 Encounter Details Date Type Department Care Team (Latest Contact Info) Description 09/27/2024 [facility] Practice [address] [place] [address] Izaiah Mcdaniels MD Proteinuria complicating , unspecified [...] Primary documented in this encounter Care Teams Translator Relationship Specialty Start Date End Date System, Provider Not In, [place] [address] PCP - General Family Medicine 09/29/24 documented as of this encounter
--- OUTSIDE RECORDS SUMMARY | 2025-07-20 22:05 | XMS_ITS | Encounter Summary ---
[facility] Organization [facility] Address [address] [place] [address] Care Team Providers Care Commutator Tester Name Role Phone Jefe Schwartz MD Primary Care Provider [phone] Encounter Details Date Type Department Care Team (Late st Contact Info) Description 01/12/2025 Results Follow-Up [facility] OBGYN [address] [facility] [address] [place] [phone] Izaiah Mcdaniels MD Social History Tobacco Use Types Packs/Day Years Used Date Smoking Tobacco: Former Cigarettes Q uit: 01/2024 Smokeless Tobacco: Never Comments:Vape. Alcohol Use Standard Drinks/Week Comments Never 0 (1 standard drink = 0.6 oz pur e alcohol) [facility] Utilities Answer Date Recorded In the past 12 months has [employer], gas, oil, or water company threatened [...] and heating? Not hard at all 12/30/2024 [facility] [place] of Occupat ional Health - Occupational Stress [...] things needed for daily living? No 12/30/2024 [place] Depression Scale Answer Date Recorded [place] Depression Scale Total 11 02/23/2024 The thought [...] GED or equivalent No 12/30/2024 Preferred Language Azeri 12/30/2024 PHQ-2 Answer Date Recorded Patient Health [...] documented in this encounter Plan of Treatment Scheduled Orders Name Type Priority Associated Diagnoses Orde r Schedule Gestational Screen 1 Hr ([facility]) Lab Routine , unspecified gestational age Morbid obesity with BMI of 45.0-49.9, adult Expected: 01/26/2025 (Approximate), Expires: 04/14/2026 documented as of this encounter Visit Diagnoses Diagnosis , unspecified gestational age- Primary Morbid obesity with BMI of 45.0-49.9, adult documented in this encounter Care Teams Commutator Tester Relationship Specialty Start Date End Date Jefe Schwartz MD [address] [place] [facility] [address] [place] [address] PCP - General Adolescent Medicine 12/14/23 documented as of this encounter
--- OUTSIDE RECORDS SUMMARY | 2025-07-20 22:05 | XMS_ITS | Encounter Summary ---
Author Organization [facility] Address [address] [place] [address] Care Team Providers Care Pearl Hand Name Role Phone Jefe Schwartz MD Primary Care Provider [phone] Encounter Details Date Type Department Care Team (Late st Contact Info) Description 12/26/2024 Results Follow-Up [facility] OBGYN 17[address] [facility] [address] [place] [phone] Kelly Patricia, [employer] [address] [facility] [address] [place] [address] Social History Tobacco Use Types Packs/Day Years Used Date Smoking Tobacco: Former Cigarettes Q uit: 01/2024 Smokeless Tobacco: Never Comments:Vape. Alcohol Use Standard Drinks/Week Comments Never 0 (1 standard drink = 0.6 oz pur e alcohol) [facility] Utilities Answer Date Recorded In the past 12 months has [employer], gas, oil, or water [employer] threatened to shut off services in your [...] heating? Not hard at all 12/30/2024 [facility] [place] [facility] - Occupational Stress Questionnaire [...] things needed for daily living? No 12/30/2024 [place] Depression Scale Answer Date Recorded [place] Depression Scale Total 11 02/23/2024 The thought [...] GED or equivalent No 12/30/2024 Preferred Language Dominican 12/30/2024 PHQ-2 Answer Date Recorded Patient Health [...] on filedocumented in this encounter Care Teams Pearl Hand Relationship Specialty Start Date End Date Jefe Schwartz MD 1210 [facility] [address] [place] [address] PCP - General Adolescent Medicine 12/14/23 documented as of this encounter
--- OUTSIDE RECORDS SUMMARY | 2025-07-20 22:05 | XMS_ITS | Encounter Summary ---
[facility] Address [address] [place] [address] Care Team Providers Care Endocrinology Physician Name Role Phone Jefe Schwartz MD Primary Care Provider [phone] Encounter Details Date Type Department Care Team (Late st Contact Info) Description 12/26/2024 Results Follow-Up [facility] OBGYN 1700 [facility] [address] [place] [phone] Kelly Patricia, CATHEAD WORKER 17[address] [facility] [address] [place] [address] Social History Tobacco Use Types Packs/Day Years Used Date Smoking Tobacco: Former Cigarettes Q uit: 01/2024 Smokeless Tobacco: Never Comments:Vape. Alcohol Use Standard Drinks/Week Comments Never 0 (1 standard drink = 0.6 oz pur e alcohol) [facility] Utilities Answer Date Recorded In the past 12 months has [employer], gas, oil, or water [employer] threatened to shut off services in your [...] and heating? Not hard at all 12/30/2024 [facility] - Occupational Stress Questionnaire Answer [...] things needed for daily living? No 12/30/2024 [place] Depression Scale Answer Date Recorded [place] Depression Scale Total 11 02/23/2024 The thought [...] GED or equivalent No 12/30/2024 Preferred Language Omani 12/30/2024 PHQ-2 Answer Date Recorded Patient Health [...] on filedocumented in this encounter Care Teams Endocrinology Physician Relationship Specialty Start Date End Date Jefe Schwartz MD 1210 [facility] [address] [place] [address] PCP - General Adolescent Medicine 12/14/23 documented as of this encounter
--- OUTSIDE RECORDS SUMMARY | 2025-07-20 22:05 | XMS_ITS | Encounter Summary ---
Author Organization [employer] ([place], [place], [place], [place], [place]) Address [address] [place] [address] Care Team Providers Care Die Cast Operator Name Role Phone Unavailable Primary Care Provider Unavailabl e Encounter Details Date Type Department Care Team (Late st Contact Info) Description 10/15/2018 Transcribed Document [facility] Family Medicine [address] [place] [address] ProviderFeroz MD [address] [place] [address] Social History Tobacco Use Types Packs/Day [...] Feroz Richter MD - 10/15/2018 4:46 PM JEWELRY MANAGER [address] , [place] [address] Patient Copy Patient Information: Name: SARBJIT RILEY Current Date: 10/15/2018 16:46:09 : 2000 Patient Address: [place] [address] Patient Attending Physician: Primary Care Provider: SHANI LUDWIG MD Primary Care Provider Discharge Diagnosis: Weight on Admission: 228 lb, 0 oz Comment: Follow-up Instructions: With: Address: When: BELA MARQUES [address] [place] [address] Business (1) Within 2 weeks [...] Document Reviewed: 08/29/2011 ExitCare? Patient Information ?2014 [employer]. Moderate Conscious Sedation, Adult, Care After These [...] you are awake and alert. ??? Take mboq-tgw-iyohfjc and prescription medicines only as told by [...] 05/17/2014 Document Revised: 12/29/2016 Document Reviewed: 11/15/2016 [employer] Interactive Patient Education ? 2017 [employer] Cardiac Ablation Cardiac ablation is a procedure to stop some heart tissue from causing problems. The heart has many electrical connections. Sometimes these connections cause the heart to beat very fast or irregularly. Removing some of the problem areas can improve heart rhythm or make it normal. Ablation is done for people who: ??? Have Tomzw-Znahresji-Jfcod syndrome. ??? Have other fast heart rhythms [...] 03/29/2014 Document Revised: 01/01/2017 Document Reviewed: 12/22/2013 [employer] Interactive Patient Education ? 2017 [employer] CIGARETTE SMOKING: The facts are clear, cigarette smoking will shorten your life. Smoking can cause many illnesses along the way. As a healthcare provider, we recommend that you stop smoking. Assistance with quitting is available by contacting 2-722-DYYC-NOW. This is a free resource providing counseling, [...] Be sure to sign up for the [employer] patient portal, which gives you 02/03 access to your medical information ??? including these discharge instructions ??? using your computer, smartphone, or tablet. Just go to [facility] to get started. Questions? Call . [facility] would like to thank you for allowing us to assist you with your healthcare needs. OSVALDO Nunes MADISON EVELYN ROSE, (or graphic art sales representative) have received the above patient education materials/instructions and have verbalized understanding: Patient Signature _ Date/Time Patient Oiler Bander Signature (if needed) Date/Time Clinician/Hospital Oiler Bander Signature (if needed) Date/Time Electronically signed by Kateryna [facility] Conversion Skid [address] Man Hitesh at 11/25/2022 5:12 PM CDT documented in this encounter Plan of Treatment Not on file documented as of this encounter Visit Diagnoses Not on filedocumented in this encounter
--- OUTSIDE RECORDS SUMMARY | 2025-07-20 22:05 | XMS_ITS | Clinical Summary ---
Author Organization [facility] Address [address] [place] [id number] Care Team Providers Care Art Instructor Name Role Phone Jefe Schwartz MD Primary Care Provider [phone] Allergies Active Allergy Reactions Criticality Noted Date Comments Fentanyl Mental Status Change Low 10/26/2023 Pt gets mean broke 4 restraints and aggressive towards staff Medications vitamins (PRENATABS RX) 29-1 MG tablet tablet Take 1 tablet by mouth Daily. 30 tablet 11 4 025 Active valACYclovir (VALTREX) 500 MG tablet Take 1 tablet by mouth 2 (Two) Times a Day. Active estradiol (ESTRACE VAGINAL) 0.1 MG/GM vaginal creamIndicatio ns:Atrophic vaginitis Insert 1 gm intravaginally 1-3 times each week 1 each 12 5 Active Active Problems Problem Noted Date Diagnosed [...] weeks. labor in third trimester with term deliv colton 01/23/2025 Iron deficiency anemia secon ledy [...] elevated. >UA 6.5 11/09/2024 anomaly scan at [facility] Worsening of iron deficiency anemia. Hematocrit [...] labetalol daily. Patient has a history of Jowew-Wtlfzvdnr-Qssns syndrome and underwent an ablation at the [...] Further, a committee opinion published by the [place] [employer]st[employer] Gynec[employer] in April [...] women at high risk for preeclampsia (Lore Take Out Waitress Med 2014; 161:819). In a 2020 update, [...] or recurrent preeclampsia requires maternal hospitalization. (from Almaz, Obstet Gynecol 2008;112:359-72; Rohit COLLINS et al. 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 Cordero in [facility]. 10/11/2023 HSV 2 IgG positive; consistent with recurrent HSV2. Rx valtrex For suppression 500 mg daily. Obesity in , antepartum 10/26/2023 Overview (10/12/2024): BMI 44 Anomaly scan at [facility]. Cigarette smoker 10/26/2023 SVT (supraventricular tachycardia) 01/20/2023 WPW (Yglai-Wmgdxihoi-Bhulw syndrome) 10/10/2018 Overview (12/02/2023): Dr. Fernando in [place] Echo & 2 week holter monitor in August 2023 wnl per patient. PDC appt 11/04; ultrasound within normal limits and normal growth. EFW 57%. No follow-up ultrasound scheduled. Assessment & Plan (11/05/2023 12:32 PM EDT): Patient currently followed by cardiology in [place]. Patient with a history of SVT but has also had cardiac ablation. Patient reports a normal echo and Holter monitor performed in August. Patient asymptomatic today. Given his history patient will likely tolerate well without issues though given cardiac history patient could consider cardiology consultation within [facility] in case patient were to have [...] Transfer of care @ 28 weeks from [facility]. FOB going to nursing school Chronic hypertension; no medication prior to [facility] HSV2 outbreak at 27 week visit [facility] Parkinson's Owiis-zufyajci-GDS Mild LFT elevation. Anemia 28 weeks hematocrit 29%.: on iron. PDC u/s 30 wk; EFW 57% Growth ultrasound 12/01 EFW 48%. AC 66%. Screening for cervical cancer 10/26/2023 10/26/2023 Overview (10/26/2023): Last Pap smear? Chronic hypertension affecting 10/26/2023 07/25/2024 Overview (12/10/2023): Transfer of care at [address] Cordero in [place] Baseline PEP, 24 Hour urine, HGBA1C, TSH drawn at [facility] (29wk); not on medication No meds prior [...] on hypertensive meds. Blood pressure today 115/67. Kwspq-Peeqcbowc-Ubqwo syndrome 10/26/2023 10/26/2023 Maternal anemia in , antepartum 10/26/2023 07/25/2024 Overview (12/02/2023): On iron supplementation. 11/05/2023 HCT 29.1%. 11/18/2023 Rx Accrufer 30 mg bid Immunizations Immunization Administration Dates Next Due 31-influenza Vac Quardvalent Preservativ 05/10/2018 DTaP / Hep B / IPV 03/17/2005 DTaP, Unspecified 01/19/2006, 5,10/29/2001,2001 Hep B, Unspecified 03/02/2001,2000 Hib (PRP-OMP) 03/17/2005,10/29/2001,08/31/2001 IPV 05/19/2005,10/29/2001 MMR 05/19/2005,10/29/2001,08/31/2001 Polio, Unspecified 08/31/2001 Tdap 01/11/2025,10/13/2023 Varicella 03/17/2005 Family History Medical History Relation Name Comments Diabetes Father Kenan Trevino. Hypertension Father Kenan Trevino. Diabetes type II Mother Hypertension Mother Diabetes Niece Diabetes Sister Annette Trevino. Diabetes type II Sister Annette Trevino. Relation Name Status Comments Father Kenan Trevino. Mother Niece Alive Sister Annette Trevino. Social History Tobacco Use Types Packs/Day Years Used Date Smoking Tobacco: Former Cigarettes Q uit: 01/2024 Passive Smoke Exposure: Past Smokeless Tobacco: Never Tobacco Cessation:Counseling Given: Not Answered Comments:Vape. Alcohol Use Standard Drinks/Week Comments Never 0 (1 standard drink = 0.6 oz pur e alcohol) [facility] Utilities Answer Date Recorded In the past 12 months has [employer], gas, oil, or water [employer] threatened to shut off services in your [...] and heating? Not hard at all 03/06/2025 [facility] [place] - Occupational Stress Questionnaire Answer Date [...] things needed for daily living? No 03/06/2025 [place] Depression Scale Answer Date Recorded [place] Depression Scale Total 7 04/17/2025 The thought [...] GED or equivalent No 03/06/2025 Preferred Language Serbian 03/06/2025 PHQ-2 Answer Date Recorded Patient Health [...] 03/06/2025 12:41 AM EDT Plan of Treatment Health Maintenance Due Date Last Done Comments [...] Routine 04/17/2025 12:00 AM EDT Acute vaginitis LIQUID-BASED PAP SMEAR WITH HPV GENOTYPING IF [...] 04/17/2025 04/17/2025 Comment:Swab Specimen source ( Narrative [facility] (AMBULATORY) - 04/19/2025 5:10 PM EDT Test(s) 691646- Atopobium vaginae; 924730- BVAB 2; 551796- Megasphaera 1 was developed and its performance characteristics determined by [facility]. It has not been cleared or approved by the Food and Drug Administration. Test(s) 925763-Pozpcju albicans, EARNESTINE; 477580-Guypshl glabrata, ERANESTINE; 442677-I parapsilosis/tropicalis; 165686-Sbkgyow lusitaniae, EARNESTINE; 472240-Wdymuad krusei, EARNESTINE was developed and its performance characteristics determined by [facility]. It has not been cleared or approved by the Food and Drug Administration. Performed at: [address] [id number] Travel Professional: Ina Couch MD, Phone: [phone] Aydin Crowe MD PATHOLOGY/CYTOLOGY ORDERABLES F inal Result [facility] ([facility]) [address] [place] [id number], [facility] [address] [place] [id number], * LIQUID-BASED PAP SMEAR WITH HPV GENOTYPING IF ASCUS (KARAN,COR,MAD) (08/17/2024 3:35 PM EST) Reference Lab Report [facility] [address] [place] [address] or [phone] Luis Boyle M.D., Tennis Desk Team Member PATIENT NAME LABORATORY NO. [address] [place] [address] DARYL AVTAR. [id number] AGE SEX SSN CLIENT REF # [id number] [address] 2000 F [id number] [address] [facility] [id number] REQUESTING [place]. ATTENDING M.D. COPY TO. [place] [id number] ARTURO FELIZ DATE COLLECTED DATE RECEIVED DATE [...] HISTORY: Essential hypertension , unspecified gestational age CONVEYOR LOADER: LUIS ANTONIO HOOKER (ASCP) CPT CODES: 56906 08/19/2024 10:47 AM EST [facility] ThinPrep Vial Cervix uteri structure / Unknown Collection / Unknown 08/17/2024 3:35 PM EST 08/17/2024 3:36 PM EST us Arturo Feliz MD PATHOLOGY/CYTOLOGY ORDERAB LES Final Result [facility]
[address] [place] [address], [place] [phone] * (ABNORMAL) Obstetric Panel (08/17/2024 3:31 PM [...] 08/17/2024 3:31 PM EST 08/18/2024 Narrative [facility] (AMBULATORY) - 08/18/2024 10:35 AM EST Performed at: 01 - [facility] [id number] Travel Professional: Edgar Mccartney PhD, Phone: [phone] us Arturo Feliz MD LAB BLOOD ORDERABLES Final Result [facility] [address] [place] [address], [facility] [address] [place] [address], from Last 3 Months or Most Recently Relevant to Health Maintenance Insurance [facility]ALTH BENEFIT CIGNA UMR Advance Directives * [...] Of Support Discussed With: Patient Care Teams Art Instructor Relationship Specialty Start Date End Date Jefe Schwartz MD 1210 [facility] [address] [address] PCP - General Adolescent Medicine 12/14/23
--- OUTSIDE RECORDS SUMMARY | 2025-07-20 22:05 | XMS_ITS | Encounter Summary ---
[facility] Address [address] [place] [address] Care Team Providers Care Social Services Name Role Phone Jefe Schwartz MD Primary Care Provider [phone] Encounter Details Date Type Department Care Team (Late st Contact Info) Description 02/07/2025 Results Follow-Up [facility] OBGYN 1700 [facility] [address] [place] [phone] Aydin Crowe MD 1700 [facility] [address] [place] [address] Social History Tobacco Use Types Packs/Day Years Used Date Smoking Tobacco: Former Cigarettes Q uit: 01/2024 Smokeless Tobacco: Never Comments:Vape. Alcohol Use Standard Drinks/Week Comments Never 0 (1 standard drink = 0.6 oz pur e alcohol) [facility] Utilities Answer Date Recorded In the past 12 months has [employer], gas, oil, or water [employer] threatened to shut off services in your [...] hard at all 01/23/2025 [facility] - Occupational Stress Questionnaire Answer [...] things needed for daily living? No 01/23/2025 [place] Depression Scale Answer Date Recorded [place] Depression Scale Total 11 02/23/2024 The thought [...] on filedocumented in this encounter Care Teams Social Services Relationship Specialty Start Date End Date Jefe Schwartz MD 1210 [facility] [address] [facility] [address] [place] [address] PCP - General Adolescent Medicine 12/14/23 documented as of this encounter
--- OUTSIDE RECORDS SUMMARY | 2025-07-20 22:05 | XMS_ITS | Clinical Summary ---
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 Primary hypertension 01/12/2025 Immunizations Immunization Administration Dates Next Due DTaP / Hep B / IPV 03/17/2005 DTaP, Unspecified 01/19/2006, 5,10/29/2001, 002 Hep B, Unspecified 03/02/2001,2000 Hib (PRP-OMP) 03/17/2005,10/29/2001,08/31/2001 IPV 05/19/2005,10/29/2001 Influenza, injectable, quadrivalent 05/10/2018 MMR 05/19/2005,10/29/2001,08/31/2001 Polio, Unspecified 08/31/2001 Tdap 01/11/2025,10/13/2023 [...] 01/11/2025 3:56 PM EDT Plan of Treatment Health Maintenance Due Date Last Done Comments [facility]-/Child/Adol SDOH Screenings 2000 [facility]-Varicella Vaccines (2 of 2 - 2-dose childhood series) 06/16/2005 03/17/2005 HPV Vaccines (1 - 3-dose series) 2015 [facility]- SDOH Screenings 2018 [facility]-Adult SDOH Screenings 2018 [facility]-MANNQ-36 Vaccine ( season) 2025 05/22/2021, 09/12/2020, 08/22/2020 [...] Reactive Non Reactive 10/06/2024 6:03 PM EST [facility] Comment:Screening for HIV 1 & 2 antibodies, and P24 antigen is NONREACTIVE. No confirmatory testing is required. Blood Venous blood specimen / Unknown Venipuncture / Unknown 10/06/2024 3:25 PM EST 10/06/2024 3:25 PM EST Aston Meyer MD LAB BLOOD ORDERABLES Final Resul t Performing Organization Address City/[facility] Co de Phone Number [facility] [address] [place] [address] * Acute Hepatitis Panel (10/06/2024 3:25 PM EST) Pathologist [facility] Hepatitis B Surf Antigen Negative Negative 10/06/2024 7:03 PM EST [facility] Hepatitis C Antibody Negative Negative 10/06/2024 7:03 PM EST [facility] Hepatitis A Antibody IgM Negative Negative 10/06/2024 7:03 PM EST [facility] Hepatitis B Core Antibody IgM Negative Negative 10/06/2024 7:03 PM EST [facility] Blood Venous blood specimen / Unknown Venipuncture / Unknown 10/06/2024 3:25 PM EST 10/06/2024 3:25 PM EST Aston Meyer MD LAB BLOOD ORDERABLES Final Resul t Performing Organization Address [facility] de Phone Number [facility] [address] [place] [address] from Last 3 Months or Most Recently Relevant to Health Maintenance Insurance [place] Barrett[place] [id number] CIGSHARRI Care Teams Dance Coach Relationship Specialty Start Date End Date System, Provider Not In, [place] [address] PCP - General Family Medicine 09/29/24
--- OUTSIDE RECORDS SUMMARY | 2025-07-20 22:05 | XMS_ITS | Encounter Summary ---
Author Organization [employer] ([place], [place], [place], [place], [place]) Address [address] [place] [address] Care Team Providers Care Load Dropper Name Role Phone Unavailable Primary Care Provider Unavailabl e Encounter Details Date Type Department Care Team (Late st Contact Info) Description 10/15/[address] [facility] [place] [address] [place] [address] ProviderFeroz MD [address] [place], [place] [address] Social History Tobacco Use Types Packs/Day Years [...] - Feroz ProviderMD - 10/15/2018 4:44 PM [employer] FORMER SUPERVISOR Discharge Instructions Entered On: 10/15/2018 16:45 EST [...] - 10/15/2018 16:47 EST Electronically signed by Prema Avendaño Conversion Client Services Account Manager [employer] at 11/25/2022 5:17 PM CDT documented in this encounter Plan of Treatment Not on file documented as of this encounter Visit Diagnoses Not on filedocumented in this encounter
--- OUTSIDE RECORDS SUMMARY | 2025-07-20 22:05 | XMS_ITS | Encounter Summary ---
Author Organization [facility]: [address] Address [address] [place] [address] Care Team Providers Care Mortgage Loan Interviewer Name Role Phone Jefe Schwartz MD Primary Care Provider [phone] Encounter Details Date Type Department Care Team (Late st Contact Info) Description 04/19/2025 Results Follow-Up [facility] [address] [facility] [address] [place] [address] [phone] Aydin Crowe MD [address] [facility] [address] [place] [address] Social History Tobacco Use Types Packs/Day Years Used Date Smoking Tobacco: Former Cigarettes Q uit: 01/2024 Passive Smoke Exposure: Past Smokeless Tobacco: Never Comments:Vape. Alcohol Use Standard Drinks/Week Comments Never 0 (1 standard drink = 0.6 oz pur e alcohol) [facility] Utilities Answer Date Recorded In the past 12 months has [employer], gas, oil, or water [employer] threatened to shut off services in [...] and heating? Not hard at all 03/06/2025 [facility] [place] [facility] - Occupational Stress Questionnaire Answer [...] things needed for daily living? No 03/06/2025 [place] Depression Scale Answer Date Recorded [place] Depression Scale Total 7 04/17/2025 The thought [...] GED or equivalent No 03/06/2025 Preferred Language Faroese 03/06/2025 PHQ-2 Answer Date Recorded Patient Health [...] on filedocumented in this encounter Care Teams Mortgage Loan Interviewer Relationship Specialty Start Date End Date Jefe Schwartz MD [address] [facility] [address] [place] [address] PCP - General Adolescent Medicine 12/14/23 documented as of this encounter
--- OUTSIDE RECORDS SUMMARY | 2025-07-20 22:05 | XMS_ITS | Encounter Summary ---
Author Organization [employer] ([place], [place], [place], [place], [place]) Address [address] [place] [address] Care Team Providers Care Director Global Name Role Phone Unavailable Primary Care Provider Unavailabl e Encounter Details Date Type Department Care Team (Late st Contact Info) Description 10/15/2018 Transcribed Document [facility] [place] Family Medicine [address] [place] [address] ProviderFeroz MD [address], [place] [id number] Social History Tobacco Use Types Packs/Day Years [...] - Historical ProviderMD - 10/15/2018 2:25 PM EXPORT FREIGHT SPECIALIST Event Note Entered On: 10/15/2018 14:25 EST Performed On: 10/15/2018 14:25 EST by DILMA WHELAN, SUKUMAR Event Note Event Location : Other: 1425 - right and left sheath sites wnl. trace drainage on dressing. assessed per Dr fuentes-wnl. DILMA WHELAN, RN - 10/15/2018 14:25 EST Electronically signed by Kateryna [facility] Conversion Roofing Foreman Hitesh at 11/25/2022 5:10 PM CDT documented in this encounter Plan of Treatment Not on file documented as of this encounter Visit Diagnoses Not on filedocumented in this encounter
--- OUTSIDE RECORDS SUMMARY | 2025-07-20 22:05 | XMS_ITS | Encounter Summary ---
Author Organization [employer] ([place], [place], [place], [place], [place]) Address [address] [place] [address] Care Team Providers Care Elevator Mechanic Apprentice Name Role Phone Unavailable Primary Care Provider Unavailabl e Encounter Details Date Type Department Care Team (Late st Contact Info) Description 10/15/2018 Transcribed Document [facility] [place] Family Medicine [address] [place] [address] ProviderFeroz MD [facility] [place] [address] Social History Tobacco Use Types Packs/Day Years [...] Feroz Richter MD - 10/15/2018 4:49 PM PLASTIC WELDING MACHINE OPERATOR Patient Education Materials Follows: Groin Site Care [...] 10/18/2012 Document Reviewed: 08/29/2011 ExitCare? Patient Information ?2013 [employer]. Pharmacology Moderate Conscious Sedation, Adult, Care After [...] you are awake and alert. ??? Take ocei-olr-ypcutnu and prescription medicines only as told by [...] 05/17/2014 Document Revised: 12/29/2016 Document Reviewed: 11/15/2016 [employer] Interactive Patient Education ? 2017 [employer] Procedures Cardiac Ablation Cardiac ablation is a procedure to stop some heart tissue from causing problems. The heart has many electrical connections. Sometimes these connections cause the heart to beat very fast or irregularly. Removing some of the problem areas can improve heart rhythm or make it normal. Ablation is done for people who: ??? Have Eqrmo-Zmcarelwk-Nusfv syndrome. ??? Have other fast heart rhythms [...] 12/22/2013 [employer] Interactive Patient Education ? 2017 [employer] documented in this encounter Plan of Treatment Not on file documented as of this encounter Visit Diagnoses Not on filedocumented in this encounter
--- OUTSIDE RECORDS SUMMARY | 2025-07-20 22:05 | XMS_ITS | Encounter Summary ---
Author Organization [employer] ([place], [place], [place], [place], [place]) Address [address] [place] [address] Care Team Providers Care Land Management Supervisor Name Role Phone Unavailable Primary Care Provider Unavailabl e Encounter Details Date Type Department Care Team (Late st Contact Info) Description 10/15/2018 Transcribed Document [facility] Family Medicine [address] [place] [address] ProviderFeroz MD [facility] [place], [place] [id number] Social History Tobacco Use Types Packs/Day Years [...] Feroz Richter MD - 10/15/2018 10:25 AM APRON CLEANER DATE OF STUDY: 10/15/2018 ELECTROPHYSIOLOGY REPORT PREOPERATIVE DIAGNOSIS: Daezt-Vklprszuf-Ezrna with recurrent symptomatic tachycardia. PROCEDURE PERFORMED: Comprehensive [...] infiltrated 1% with 1% lidocaine locally. Two 6-Austrian and two 7-Austrian sheaths were placed in the left femoral vein. A 5-Austrian sheath was placed in the left femoral artery. A 5-Austrian pigtail catheter was placed to level aortic valve plane for continuous arterial pressure monitoring to assist with transseptal cardiac catheterization. A 7-Austrian Decapolar catheter was placed in the coronary sinus. A 6-Austrian Quadripolar catheters were placed to high right [...] through the right femoral vein, a long 9-Austrian sheath and 11-Austrian sheath were introduced. A Biosense Rosas intracardiac [...] was measured and recorded. Next, using a Bios[employer] Rosas STF Curve irrigated ablation catheter in [...] M.D. Electronically signed by Prema Avendaño Conversion Director [employer] Cer[employer] at 11/25/2022 5:08 PM CDT documented in this encounter Plan of Treatment Not on file documented as of this encounter Visit Diagnoses Not on filedocumented in this encounter
--- OUTSIDE RECORDS SUMMARY | 2025-07-20 22:06 | XMS_ITS | Data Portability ---
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 Name Role Phone SHANI LUDWIG Primary Care Provider Assessment Encounter Date Assessment Date Assessment LastModified by Organization Details LastModified Time 11/01/2021 11/01/2021 f/up melania Not available 10/09 07:24:34 04/28/2022 04/28/2022 f/up in 6 months [email or web address] Not available 04/28/2022 13:47:02 04/12/2024 04/12/2024 f/up in 6 months [email or web address] Not available 04/12/2024 15:37:19 07/18/2024 07/18/2024 f/up PRN [email or web address] Not available 04/2024 10:23:59 Plan of Treatment Reminders Order Date Submit Date Provider Last Modified By Organization Details Last Modified Time Details Appointments None recorded. Lab CBC w/ auto diff 2023 024 [facility], [address] [place] [address], [id number], 18:35:50 CMP, serum or plasma 2023 024 [facility], [address] [place] [address], [id number], 4 19:15:24 hepatitis (A+B+C) panel, serum 2023 024 [facility], [address] [place] [address], [id number], 18:40:19 CBC w/ auto diff 2021 022 [facility], [address] [place] [address], [id number], 15:52:37 CMP, serum or plasma 2021 022 [facility], [address] [place] [address], [id number], 16:15:29 CBC w/ auto diff 2021 022 [facility], [address] [place] [address], [id number], 14:15:20 CMP, serum or plasma 2021 022 [facility], [address] [place] [address], [id number], 13:42:16 hepatitis (A+B+C) panel, serum 2021 [facility], [address] [place] [address], [id number], 13:45:26 Referral None recorded. Procedures None recorded. Surgeries None recorded. Imaging None recorded. Medication Orders clobetasol 0.05 % scalp solution 2023 024 [email or web address] 2 [facility], [address] [place], [address], 13:32:02 Skyrizi 150 mg/mL subcutaneou s pen injector 2023 024 [place] [facility], [facility] ([facility]), [address] [place] [address], [id number], 4 16:02:33 betamethaso ne, augmented 0.05 % lotion 2021 [email or web address] 2 [id number], [address] [place], [address], 2 14:07:39 Ultravate 0.05 % lotion 2021 022 [email or web address] [id number], [address] [place], [address], 3 15:14:25 Tremfya 100 mg/mL subcutaneou s auto-inject or 2021 [email or web address] [facility], [facility]), [address] [place] [address], [address], [place], [place], [id number], 3 15:14:17 Patient TargetsNo targets recorded. Patient Instructions Encounter Date Encounter Id Patient Instructions Last Modified By Organization Details Last Modified Time 11/01/2021 [id number] Education: We discussed the potential diagnostic options, options for further evaluation and treatments, and the risks and benefits of each. melania Not available 10/29/2021 07:24:37 04/28/2022 [id number] Education: We discussed the potential diagnostic options, options for further evaluation and treatments, and the risks and benefits of each. [email or web address] Not available 04/28/2022 07:05:56 04/12/2024 [id number] Education: We discussed the potential diagnostic options, options for further evaluation and treatments, and the risks and benefits of each. [email or web address] Not available 04/12/2024 15:37:19 07/18/2024 [id number] Education: We discussed the potential diagnostic options, options for further evaluation and treatments, and the risks and benefits of each. [email or web address] Not available 07/18/2024 10:00:58 Reason for Referral None Reported. Results Created Date Observation Date Name Description Value Unit Range Abnormal Flag Note LastModifiedBy Organization Detail LastModifiedTime 11/02/19 22 11/01/2021 COMP. METAB OLIC PANEL glucose 89 mg/dL 74-100 normal Not Available [facility] [address] [place] [address], [id number], 11/01/2021 13:42:16 11/02/19 22 11/01/2021 COMP. METAB OLIC PANEL blood urea nitrogen 8 mg/dL 6-20 normal Not Available [facility] [address] [place] [address], [id number], 11/01/2021 13:42:16 11/02/19 22 11/01/2021 COMP. METAB OLIC PANEL creatinine 0.98 mg/dL 0.50-0 .95 high Not Available [facility] [address] [place] [address], [id number], 11/01/2021 13:42:16 11/02/19 22 11/01/2021 COMP. METAB OLIC PANEL BUN/creatini ne ratio 8 (calc ) 10-20 low Not Available [facility] [address] [place] [address], [phone], 11/01/2021 13:42:16 11/02/19 22 11/01/2021 COMP. METAB OLIC PANEL sodium 140 mmol/ L 136-14 5 normal Not Available [facility] [address] [place] [address], [address], 11/01/2021 13:42:16 11/02/19 22 11/01/2021 COMP. METAB OLIC PANEL potassium 4.7 mmol/ L 3.4-5. 0 normal Not Available [facility] [address] [place] [address], [address], 11/01/2021 13:42:16 11/02/19 22 11/01/2021 COMP. METAB OLIC PANEL chloride 105 mmol/ L 98-107 normal Not Available [facility] [address] [place] [address], [address], 11/01/2021 13:42:16 11/02/19 22 11/01/2021 COMP. METAB OLIC PANEL carbon dioxide 24 mmol/ L 22-31 normal Not Available [facility] [address] [place] [address], [address], 11/01/2021 13:42:16 11/02/19 22 11/01/2021 COMP. METAB OLIC PANEL anion gap 11 (calc ) 7-25 normal Not Available [facility] [address] [place] [address], [address], 11/01/2021 13:42:16 11/02/19 22 11/01/2021 COMP. METAB OLIC PANEL calcium 8.9 mg/dL 8.6-10 .2 normal Not Available [facility] [address] [place] [address], [address], 11/01/2021 13:42:16 11/02/19 22 11/01/2021 COMP. METAB OLIC PANEL total protein 6.6 g/dL 6.4-8. 3 normal Not Available [facility] [address] [place] [address], [address], 11/01/2021 13:42:16 11/02/19 22 11/01/2021 COMP. METAB OLIC PANEL albumin 4.4 g/dL 3.5-5. 2 normal Not Available [facility] [address] [place] [address], [address], 11/01/2021 13:42:16 11/02/19 22 11/01/2021 COMP. METAB OLIC PANEL globulin 2.2 g/dL_ (calc ) 1.5-4. 5 normal Not Available [facility] [address] [place] [address], [address], 11/01/2021 13:42:16 11/02/19 22 11/01/2021 COMP. METAB OLIC PANEL albumin/glob ulin ratio 2.0 (calc ) 1.1-2. 5 normal Not Available [facility] [address] [place] [address], [address], 11/01/2021 13:42:16 11/02/19 22 11/01/2021 COMP. METAB OLIC PANEL bilirubin, total 0.5 mg/dL 0.1-1. 2 normal Not Available [facility] [address] [place] [address], [address], 11/01/2021 13:42:16 11/02/19 22 11/01/2021 COMP. METAB OLIC PANEL alkaline phosphatase 77 U/L 30-121 normal Not Available [facility] [address] [place] [address], [address], 11/01/2021 13:42:16 11/02/19 22 11/01/2021 COMP. METAB OLIC PANEL AST 15 U/L 0-32 normal Not Available [facility] [address] [place] [address], [address], 11/01/2021 13:42:16 11/02/19 22 11/01/2021 COMP. METAB OLIC PANEL ALT 21 U/L 0-33 normal Not Available [facility] [address] [place] [address], [address], 11/01/2021 13:42:16 11/02/19 22 11/01/2021 COMP. METAB OLIC PANEL GFR 95 >= 60 normal Not Available [facility] [address] [place] [address], [address], 11/01/2021 13:42:16 11/02/19 22 11/01/2021 COMP. METAB [...] s/KDO QI/gf r_cal culat orPed Not Available [facility] [address] [place] [address], [address], 11/01/2021 13:42:16 11/02/19 22 11/01/2021 HEPAT ITIS PANEL hepatitis A Ab, IgM Nonrea ctive non-re active normal Not Available [facility] [address] [place] [address], [address], 11/01/2021 13:45:25 11/02/19 22 11/01/2021 HEPAT ITIS PANEL hepatitis B surface Ag Nonrea ctive non-re active normal Not Available [facility] [address] [place] [address], [address], 11/01/2021 13:45:25 11/02/19 22 11/01/2021 HEPAT ITIS PANEL hepatitis B core Ab,IgM Nonrea ctive non reacti ve normal Not Available [facility] [address] [place] [address], [address], 11/01/2021 13:45:25 11/02/19 22 11/01/2021 HEPAT ITIS PANEL hcab, reflex viral RNA qt Nonrea ctive non-re active normal Antib odies to HCV were not detec kennedy; does not exclu de the possi bilit y of expos ure to HCV. Not Available [facility] [address] [place] [address], [address], 11/01/2021 13:45:25 11/02/19 22 11/01/2021 COMPL ETE BLOOD COUNT white blood cells 9.7 K/uL 3.8-10 .8 normal Not Available [facility] [address] [place] [address], [address], 11/01/2021 14:15:20 11/02/19 22 11/01/2021 COMPL ETE BLOOD COUNT red blood cells 4.65 M/uL 3.80-5 .20 normal Not Available [facility] [address] [place] [address], [address], 11/01/2021 14:15:20 11/02/19 22 11/01/2021 COMPL ETE BLOOD COUNT hemoglobin 11.2 g/dL 12.0-1 6.0 low Not Available [facility] [address] [place] [address], [address], 11/01/2021 14:15:20 11/02/19 22 11/01/2021 COMPL ETE BLOOD COUNT hematocrit 34.0 % 35.0-4 7.0 low Not Available [facility] [address] [place] [address], [address], 11/01/2021 14:15:20 11/02/19 22 11/01/2021 COMPL ETE BLOOD COUNT MCV 73 fL 80-100 low Not Available [facility] [address] [place] [address], [address], 11/01/2021 14:15:20 11/02/19 22 11/01/2021 COMPL ETE BLOOD COUNT MCH 24 pg 26-35 low Not Available [facility] [address] [place] [address], [address], 11/01/2021 14:15:20 11/02/19 22 11/01/2021 COMPL ETE BLOOD COUNT MCHC 33 g/dL 32-36 normal Not Available [facility] [address] [place] [address], [address], 11/01/2021 14:15:20 11/02/19 22 11/01/2021 COMPL ETE BLOOD COUNT RDW 16.0 % 11.0-1 5.0 high Not Available [facility] [address] [place] [address], [address], 11/01/2021 14:15:20 11/02/19 22 11/01/2021 COMPL ETE BLOOD COUNT MPV 9.4 fL 6.2-10 .5 normal Not Available [facility] [address] [place] [address], [address], 11/01/2021 14:15:20 11/02/19 22 11/01/2021 COMPL ETE BLOOD COUNT platelet count 352 K/uL 130-40 0 normal Not Available [facility] [address] [place] [address], [address], 11/01/2021 14:15:20 11/02/19 22 11/01/2021 COMPL ETE BLOOD COUNT neutrophil,a bsolute 6.8 K/uL 1.6-8. 4 normal Not Available [facility] [address] [place] [address], [address], 11/01/2021 14:15:20 11/02/19 22 11/01/2021 COMPL ETE BLOOD COUNT lymphocyte,a bsolute 2.1 K/uL 0.4-5. 1 normal Not Available [facility] [address] [place] [address], [address], 11/01/2021 14:15:20 11/02/19 22 11/01/2021 COMPL ETE BLOOD COUNT monocyte,abs olute 0.5 K/uL 0.0-1. 2 normal Not Available [facility] [address] [place] [address], [address], 11/01/2021 14:15:20 11/02/19 22 11/01/2021 COMPL ETE BLOOD COUNT eosinophil,a bsolute 0.2 K/uL 0.0-0. 8 normal Not Available [facility] [address] [place] [address], [address], 11/01/2021 14:15:20 11/02/19 22 11/01/2021 COMPL ETE BLOOD COUNT basophil,abs olute 0.0 K/uL 0.0-0. 3 normal Smear revie wed to confi rm cell morph ology . Not Available [facility] [address] [place] [address], [address], 11/01/2021 14:15:20 11/02/19 22 11/01/2021 COMPL ETE BLOOD COUNT % neutrophils 70.5 % 42.0-7 8.0 normal Not Available [facility] [address] [place] [address], [address], 11/01/2021 14:15:20 11/02/19 22 11/01/2021 COMPL ETE BLOOD COUNT % lymphocytes 22.1 % 11.0-4 7.0 normal Not Available [facility] [address] [place] [address], [address], 11/01/2021 14:15:20 11/02/19 22 11/01/2021 COMPL ETE BLOOD COUNT % monocytes 4.8 % 0.0-11 .0 normal Not Available [facility] [address] [place] [address], [address], 11/01/2021 14:15:20 11/02/19 22 11/01/2021 COMPL ETE BLOOD COUNT % eosinophils 2.4 % 0.0-7. 0 normal Not Available [facility] [address] [place] [address], [address], 11/01/2021 14:15:20 11/02/19 22 11/01/2021 COMPL ETE BLOOD COUNT % basophils 0.2 % 0.0-3. 0 normal Not Available [facility] [address] [place] [address], [address], 11/01/2021 14:15:20 11/02/19 22 11/01/2021 COMPL ETE BLOOD COUNT nucleated red cells 0.0 % 0.0-0. 9 normal Not Available [facility] [address] [place] [address], [address], 11/01/2021 14:15:20 11/02/19 22 11/01/2021 COMPL ETE BLOOD COUNT nucleated RBCs, absolute 0.00 K/uL not estab. normal Not Available [facility] [address] [place] [address], [address], 11/01/2021 14:15:20 11/02/19 22 11/01/2021 MORPH OLOGY platelet morphology NORMAL normal Not Available [facility] [address] [place] [address], [address], 11/01/2021 14:15:22 11/02/19 22 11/01/2021 MORPH OLOGY hypochromasi a SLIGHT abnormal Not Available [facility] [address] [place] [address], [address], 11/01/2021 14:15:22 11/02/19 22 11/01/2021 MORPH OLOGY polychromasi a SLIGHT abnormal Not Available [facility] [address] [place] [address], [address], 11/01/2021 14:15:22 11/02/19 22 11/01/2021 MORPH OLOGY dacryocytes SLIGHT abnormal Not Available [facility] [address] [place] [address], [address], 11/01/2021 14:15:22 04/28/20 22 04/28/2022 COMPL ETE BLOOD COUNT white blood cells 10.7 K/uL 3.8-10 .8 normal Not Available [facility] [address] [place] [address], [address], 04/28/2022 15:52:37 04/28/20 22 04/28/2022 COMPL ETE BLOOD COUNT red blood cells 4.45 M/uL 3.80-5 .20 normal Not Available [facility] [address] [place] [address], [address], 04/28/2022 15:52:37 04/28/20 22 04/28/2022 COMPL ETE BLOOD COUNT hemoglobin 11.2 g/dL 12.0-1 6.0 low Not Available [facility] [address] [place] [address] [place], [address], 04/28/2022 15:52:37 04/28/20 22 04/28/2022 COMPL ETE BLOOD COUNT hematocrit 33.7 % 35.0-4 7.0 low Not Available [facility] [address] [place] [address], [address], 04/28/2022 15:52:37 04/28/20 22 04/28/2022 COMPL ETE BLOOD COUNT MCV 76 fL 80-100 low Not Available [facility] [address] [place] [address], [address], 04/28/2022 15:52:37 04/28/20 22 04/28/2022 COMPL ETE BLOOD COUNT MCH 25 pg 26-35 low Not Available [facility] [address] [place] [address], [address], 04/28/2022 15:52:37 04/28/20 22 04/28/2022 COMPL ETE BLOOD COUNT MCHC 33 g/dL 32-36 normal Not Available [facility] [address] [place] [address], [address], 04/28/2022 15:52:37 04/28/20 22 04/28/2022 COMPL ETE BLOOD COUNT RDW 15.7 % 11.0-1 5.0 high Not Available [facility] [address] [place] [address], [address], 04/28/2022 15:52:37 04/28/20 22 04/28/2022 COMPL ETE BLOOD COUNT MPV 9.1 fL 6.2-10 .5 normal Not Available [facility] [address] [place] [address], [address], 04/28/2022 15:52:37 04/28/20 22 04/28/2022 COMPL ETE BLOOD COUNT platelet count 354 K/uL 130-40 0 normal Not Available [facility] [address] [place] [address], [address], 04/28/2022 15:52:37 04/28/20 22 04/28/2022 COMPL ETE BLOOD COUNT neutrophil,a bsolute 7.8 K/uL 1.6-8. 4 normal Not Available [facility] [address] [place] [address], [address], 04/28/2022 15:52:37 04/28/20 22 04/28/2022 COMPL ETE BLOOD COUNT lymphocyte,a bsolute 2.1 K/uL 0.4-5. 1 normal Not Available [facility] [address] [place] [address], [address], 04/28/2022 15:52:37 04/28/20 22 04/28/2022 COMPL ETE BLOOD COUNT monocyte,abs olute 0.5 K/uL 0.0-1. 2 normal Not Available [facility] [address] [place] [address], [address], 04/28/2022 15:52:37 04/28/20 22 04/28/2022 COMPL ETE BLOOD COUNT eosinophil,a bsolute 0.2 K/uL 0.0-0. 8 normal Not Available [facility] [address] [place] [address], [address], 04/28/2022 15:52:37 04/28/20 22 04/28/2022 COMPL ETE BLOOD COUNT basophil,abs olute 0.0 K/uL 0.0-0. 3 normal Not Available [facility] [address] [place] [address], [address], 04/28/2022 15:52:37 04/28/20 22 04/28/2022 COMPL ETE BLOOD COUNT % neutrophils 72.9 % 42.0-7 8.0 normal Not Available [facility] [address] [place] [address], [address], 04/28/2022 15:52:37 04/28/20 22 04/28/2022 COMPL ETE BLOOD COUNT % lymphocytes 19.9 % 11.0-4 7.0 normal Not Available [facility] [address] [place] [address], [address], 04/28/2022 15:52:37 04/28/20 22 04/28/2022 COMPL ETE BLOOD COUNT % monocytes 4.6 % 0.0-11 .0 normal Not Available [facility] [address] [place] [address], [address], 04/28/2022 15:52:37 04/28/20 22 04/28/2022 COMPL ETE BLOOD COUNT % eosinophils 2.3 % 0.0-7. 0 normal Not Available [facility] [address] [place] [address], [address], 04/28/2022 15:52:37 04/28/20 22 04/28/2022 COMPL ETE BLOOD COUNT % basophils 0.3 % 0.0-3. 0 normal Not Available [facility] [address] [place] [address], [address], 04/28/2022 15:52:37 04/28/20 22 04/28/2022 COMPL ETE BLOOD COUNT nucleated red cells 0.0 % 0.0-0. 9 normal Not Available [facility] [address] [place] [address], [address], 04/28/2022 15:52:37 04/28/20 22 04/28/2022 COMPL ETE BLOOD COUNT nucleated RBCs, absolute 0.00 K/uL not estab. normal Not Available [facility] [address] [place] [address], [address], 04/28/2022 15:52:37 04/28/20 22 04/28/2022 COMP. METAB OLIC PANEL glucose 91 mg/dL 74-100 normal Not Available [facility] [address] [place] [address], [address], 04/28/2022 16:15:29 04/28/20 04/28/2022 COMP. METAB OLIC PANEL blood urea nitrogen 10 mg/dL 6-20 normal Not Available [facility] [address] [place] [address], [address], 04/28/2022 16:15:29 04/28/20 22 04/28/2022 COMP. METAB OLIC PANEL creatinine 1.07 mg/dL 0.50-0 .95 high Not Available [facility] [address] [place] [address], [address], 04/28/2022 16:15:29 04/28/20 22 04/28/2022 COMP. METAB OLIC PANEL BUN/creatini ne ratio 9 (calc ) 10-20 low Not Available [facility] [address] [place] [address], [address], 04/28/2022 16:15:29 04/28/20 22 04/28/2022 COMP. METAB OLIC PANEL sodium 140 mmol/ L 136-14 5 normal Not Available [facility] [address] [place] [address], [address], 04/28/2022 16:15:29 04/28/20 22 04/28/2022 COMP. METAB OLIC PANEL potassium 4.3 mmol/ L 3.4-5. 0 normal Not Available [facility] [address] [place] [address], [address], 04/28/2022 16:15:29 04/28/20 22 04/28/2022 COMP. METAB OLIC PANEL chloride 104 mmol/ L 98-107 normal Not Available [facility] [address] [place] [address], [address], 04/28/2022 16:15:29 04/28/20 22 04/28/2022 COMP. METAB OLIC PANEL carbon dioxide 26 mmol/ L 22-31 normal Not Available [facility] [address] [place] [address], [address], 04/28/2022 16:15:29 04/28/20 22 04/28/2022 COMP. METAB OLIC PANEL anion gap 10 (calc ) 7-25 normal Not Available [facility] [address] [place] [address], [address], 04/28/2022 16:15:29 04/28/20 22 04/28/2022 COMP. METAB OLIC PANEL calcium 9.4 mg/dL 8.6-10 .2 normal Not Available [facility] [address] [place] [address], [address], 04/28/2022 16:15:29 04/28/20 22 04/28/2022 COMP. METAB OLIC PANEL total protein 6.9 g/dL 6.4-8. 3 normal Not Available [facility] [address] [place] [address], [address], 04/28/2022 16:15:29 04/28/20 22 04/28/2022 COMP. METAB OLIC PANEL albumin 4.1 g/dL 3.5-5. 2 normal Not Available [facility] [address] [place] [address], [address], 04/28/2022 16:15:29 04/28/20 22 04/28/2022 COMP. METAB OLIC PANEL globulin 2.8 g/dL_ (calc ) 1.5-4. 5 normal Not Available [facility] [address] [place] [address], [address], 04/28/2022 16:15:29 04/28/20 22 04/28/2022 COMP. METAB OLIC PANEL albumin/glob ulin ratio 1.5 (calc ) 1.1-2. 5 normal Not Available [facility] [address] [place] [address], [address], 04/28/2022 16:15:29 04/28/20 22 04/28/2022 COMP. METAB OLIC PANEL bilirubin, total 0.4 mg/dL 0.1-1. 2 normal Not Available [facility] [address] [place], [address], 04/28/2022 16:15:29 04/28/20 22 04/28/2022 COMP. METAB OLIC PANEL alkaline phosphatase 75 U/L 30-121 normal Not Available [facility] [address] [place], [address], 04/28/2022 16:15:29 04/28/20 22 04/28/2022 COMP. METAB OLIC PANEL AST 15 U/L 0-32 normal Not Available [facility] [address] [place], [address], 04/28/2022 16:15:29 04/28/20 22 04/28/2022 COMP. METAB OLIC PANEL ALT 26 U/L 0-33 normal Not Available [facility] [address] [place], [address], 04/28/2022 16:15:29 04/28/20 22 04/28/2022 COMP. METAB OLIC PANEL GFR 75 >= 60 normal NOT E New calcu latio n for GFR (CKD- EPI 2020) is formu lated witho ut race adjus tment facto rs at the recom menda tion of the Lisseth Angel y Valentín atevelina and Amree garcía [facility] . This calcu latio n has not been valid ated in pregn ant women . For pedia tric patie nts refer to [email or web address] :[email or web address] [email or web address] hutton s/KDO QI/gf r_cal culat orPed Not Available [facility] [address] [place], [address], 04/28/2022 16:15:29 04/12/20 24 04/12/2024 COMPL ETE BLOOD COUNT white blood cells 10.5 10*3/ uL 3.8-10 .8 normal Not Available [facility] [address] [place], [address], 04/12/2024 18:35:50 04/12/20 24 04/12/2024 COMPL ETE BLOOD COUNT red blood cells 4.40 10*6/ uL 3.80-5 .20 normal Not Available [facility] [address] [place] [address], [address], 04/12/2024 18:35:50 04/12/20 24 04/12/2024 COMPL ETE BLOOD COUNT hemoglobin 11.3 g/dL 12.0-1 6.0 low Not Available [facility] [address] [place] [address], [address], 04/12/2024 18:35:50 04/12/20 24 04/12/2024 COMPL ETE BLOOD COUNT hematocrit 33.9 % 35.0-4 7.0 low Not Available [facility] [address] [place] [address], [address], 04/12/2024 18:35:50 04/12/20 24 04/12/2024 COMPL ETE BLOOD COUNT MCV 77 fL 80-100 low Not Available [facility] [address] [place] [address], [address], 04/12/2024 18:35:50 04/12/20 24 04/12/2024 COMPL ETE BLOOD COUNT MCH 26 pg 26-35 normal Not Available [facility] [address] [place] [address], [address], 04/12/2024 18:35:50 04/12/20 24 04/12/2024 COMPL ETE BLOOD COUNT MCHC 33 g/dL 32-36 normal Not Available [facility] [address] [place] [address], [address], 04/12/2024 18:35:50 04/12/20 24 04/12/2024 COMPL ETE BLOOD COUNT RDW 15.1 % 11.0-1 5.0 high Not Available [facility] [address] [place] [address], [address], 04/12/2024 18:35:50 04/12/20 24 04/12/2024 COMPL ETE BLOOD COUNT MPV 9.6 fL 6.2-10 .5 normal Not Available [facility] [address] [place] [address], [address], 04/12/2024 18:35:50 04/12/20 24 04/12/2024 COMPL ETE BLOOD COUNT platelet count 302 10*3/ uL 150-40 0 normal Not Available [facility] [address] [place] [address], [address], 04/12/2024 18:35:50 04/12/20 24 04/12/2024 COMPL ETE BLOOD COUNT neutrophil,a bsolute 7.1 10*3/ uL 1.6-8. 4 normal Not Available [facility] [address] [place] [address], [address], 04/12/2024 18:35:50 04/12/20 24 04/12/2024 COMPL ETE BLOOD COUNT lymphocyte,a bsolute 2.6 10*3/ uL 0.4-5. 1 normal Not Available [facility] [address] [place] [address], [address], 04/12/2024 18:35:50 04/12/20 24 04/12/2024 COMPL ETE BLOOD COUNT monocyte,abs olute 0.5 10*3/ uL 0.0-1. 2 normal Not Available [facility] [address] [place] [address], [address], 04/12/2024 18:35:50 04/12/20 24 04/12/2024 COMPL ETE BLOOD COUNT eosinophil,a bsolute 0.2 10*3/ uL 0.0-0. 8 normal Not Available [facility] [address] [place] [address], [address], 04/12/2024 18:35:50 04/12/20 24 04/12/2024 COMPL ETE BLOOD COUNT basophil,abs olute 0.0 10*3/ uL 0.0-0. 3 normal Not Available [facility] [address] [place] [address], [address], 04/12/2024 18:35:50 04/12/20 24 04/12/2024 COMPL ETE BLOOD COUNT % neutrophils 68.2 % 42.0-7 8.0 normal Not Available [facility] [address] [place] [address], [address], 04/12/2024 18:35:50 04/12/20 24 04/12/2024 COMPL ETE BLOOD COUNT % lymphocytes 24.8 % 11.0-4 7.0 normal Not Available [facility] [address] [place] [address], [address], 04/12/2024 18:35:50 04/12/20 24 04/12/2024 COMPL ETE BLOOD COUNT % monocytes 4.8 % 0.0-11 .0 normal Not Available [facility] [address] [place] [address], [address], 04/12/2024 18:35:50 04/12/20 24 04/12/2024 COMPL ETE BLOOD COUNT % eosinophils 1.9 % 0.0-7. 0 normal Not Available [facility] [address] [place] [address], [address], 04/12/2024 18:35:50 04/12/20 24 04/12/2024 COMPL ETE BLOOD COUNT % basophils 0.3 % 0.0-3. 0 normal Not Available [facility] [address] [place] [address], [address], 04/12/2024 18:35:50 04/12/20 24 04/12/2024 COMPL ETE BLOOD COUNT nucleated red cells 0.1 % 0.0-0. 9 normal Not Available [facility] [address] [place] [address], [address], 04/12/2024 18:35:50 04/12/20 24 04/12/2024 COMPL ETE BLOOD COUNT nucleated RBCs, absolute 0.01 10*3/ uL not estab. normal Not Available [facility] [address] [place] [address], [address], 04/12/2024 18:35:50 04/12/20 24 04/12/2024 HEPAT ITIS PANEL hepatitis A Ab, IgM NONREA CTIVE nonrea ctive normal Not Available [facility] [address] [place] [address], [address], 04/12/2024 18:40:19 04/12/20 24 04/12/2024 HEPAT ITIS PANEL hepatitis B surface Ag NONREA CTIVE nonrea ctive normal Not Available [facility] [address] [place] [address], [address], 04/12/2024 18:40:19 04/12/20 24 04/12/2024 HEPAT ITIS PANEL hepatitis B core Ab,IgM NONREA CTIVE nonrea ctive normal Not Available [facility] [address] [place] [address], [address], 04/12/2024 18:40:19 04/12/20 24 04/12/2024 HEPAT ITIS PANEL hcab, reflex viral RNA qt NONREA CTIVE nonrea ctive normal Antib odies to HCV were not detec kennedy; does not exclu de the possi bilit y of expos ure to HCV. Not Available [facility] [address] [place] [address], [address], 04/12/2024 18:40:19 04/12/20 24 04/12/2024 COMP. METAB OLIC PANEL glucose 99 mg/dL 74-100 normal Not Available [facility] [address] [place] [address], [address], 04/12/2024 19:15:24 04/12/20 24 04/12/2024 COMP. METAB OLIC PANEL blood urea nitrogen 14 mg/dL 6-20 normal Not Available [facility] [address] [place] [address], [address], 04/12/2024 19:15:24 04/12/20 24 04/12/2024 COMP. METAB OLIC PANEL creatinine 1.15 mg/dL 0.50-0 .95 high Not Available [facility] [address] [place] [address], [address], 04/12/2024 19:15:24 04/12/20 24 04/12/2024 COMP. METAB OLIC PANEL BUN/creatini ne ratio 12 (calc ) 10-20 normal Not Available [facility] [address] [place] [address], [address], 04/12/2024 19:15:24 04/12/20 24 04/12/2024 COMP. METAB OLIC PANEL sodium 139 mmol/ L 136-14 5 normal Not Available [facility] [address] [place] [address], [address], 04/12/2024 19:15:24 04/12/20 24 04/12/2024 COMP. METAB OLIC PANEL potassium 3.9 mmol/ L 3.4-5. 0 normal Not Available [facility] [address] [place] [address], [address], 04/12/2024 19:15:24 04/12/20 24 04/12/2024 COMP. METAB OLIC PANEL chloride 102 mmol/ L 98-107 normal Not Available [facility] [address] [place] [address], [address], 04/12/2024 19:15:24 04/12/20 24 04/12/2024 COMP. METAB OLIC PANEL carbon dioxide 25 mmol/ L 22-31 normal Not Available [facility] [address] [place] [address], [address], 04/12/2024 19:15:24 04/12/20 24 04/12/2024 COMP. METAB OLIC PANEL anion gap 12 (calc ) 7-25 normal Not Available [facility] [address] [place] [address], [address], 04/12/2024 19:15:24 04/12/20 24 04/12/2024 COMP. METAB OLIC PANEL calcium 9.1 mg/dL 8.6-10 .2 normal Not Available [facility] [address] [place] [address], [address], 04/12/2024 19:15:24 04/12/20 24 04/12/2024 COMP. METAB OLIC PANEL total protein 7.1 g/dL 6.4-8. 3 normal Not Available [facility] [address] [place] [address], [address], 04/12/2024 19:15:24 04/12/20 24 04/12/2024 COMP. METAB OLIC PANEL albumin 4.0 g/dL 3.5-5. 2 normal Not Available [facility] [address] [place] [address], [address], 04/12/2024 19:15:24 04/12/20 24 04/12/2024 COMP. METAB OLIC PANEL globulin 3.1 1.5-4. 5 normal Not Available [facility] [address] [place] [address], [address], 04/12/2024 19:15:24 04/12/20 24 04/12/2024 COMP. METAB OLIC PANEL albumin/glob ulin ratio 1.3 (calc ) 1.1-2. 5 normal Not Available [facility] [address] [place] [address], [address], 04/12/2024 19:15:24 04/12/20 24 04/12/2024 COMP. METAB OLIC PANEL bilirubin, total 0.6 mg/dL 0.1-1. 2 normal Not Available [facility] [address] [place] [address], [address], 04/12/2024 19:15:24 04/12/20 24 04/12/2024 COMP. METAB OLIC PANEL alkaline phosphatase 62 U/L 30-121 normal Not Available [facility] [address] [place], [address], 04/12/2024 19:15:24 04/12/20 24 04/12/2024 COMP. METAB OLIC PANEL AST 17 U/L 0-32 normal Not Available [facility] [address] [place], [address], 04/12/2024 19:15:24 04/12/20 24 04/12/2024 COMP. METAB OLIC PANEL ALT 23 U/L 0-33 normal Not Available [facility] [address] [place] [address], [address], 04/12/2024 19:15:24 04/12/20 24 04/12/2024 COMP. METAB [...] s/KDO QI/gf r_cal culat orPed Not Available [facility] [address] [place], [address], 04/12/2024 19:15:24 09/16/19 22 09/16/2021 exerc ise stres s test No observ ation record ed. [email or web address] Not Available 2021 11:08:41 09/16/19 22 09/16/2021 cardi ac stres s test No observ ation record ed. [email or web address] Bela Marques MD [address], [place], [address], 09/16/2021 11:58:59 Result Notes None recorded. Problems Name Problem SNOMED Code Status Onset Date Resolution Date Notes Provider Name and Address Organization Details Recorded Time Flexural psoriasi s 601842266 Active 2015 From [employer];Pro vider: Leatha Hawk;Rudi tatus: Active Not Available [facility] 6 07:38:05 Chest pain 70124082 Active 2018 CHAYO LEYVA PA-C [address] [place] [address], [address] , [facility] 9 09:37:38 Palpitat ions 23377500 Active 2018 CHAYO LEYVA PA-C [address] [place] [address], [address] , [facility] 9 09:37:42 Electroc ardiogra m abnormal 484654588 Completed 201810/10/2018 BELA MARQUES MD [address] [place] [address], [phone] [place] [address] 9 13:11:32 Chris-Pa rkinson- White pattern 36271251 Active 2018 BELA MARQUES MD [address] [place] [address], [address] , [facility] 9 13:11:38 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 Procedures Surgical History Date Name Laterality Status Provider Name and Address Organization Details Recorded Time 09/16/19 22 Stress Test - Exercise Treadmill completed BELA MARQUES MD [address] [place] [address], [address], [facility] 09/16/2021 11:01:47 10/16/19 19 Other completed Piedad Willoughby [facility] 01/05/2019 08:11:26 09/16/19 19 Echocardiogram completed BELA MARQUES MD [facility] [place], [address], [facility] 09/16/2018 15:11:05 Imaging Results None recorded. Procedure Notes None recorded. Medical Equipment None Reported. Allergies Allergen ID Allergen Name Allergen Category Reaction Reaction Severity Criticality Documentation Date Start Date Code Code System Note Provider Name and Address Organization Details Recorded Time 872408 fentanyl medicatio n Not available Not available Not available 04/12/2024 4337 RxNorm Gabriela Stephens [facility] 15:45:23 Medications Name Sig Start Date Stop Date Status Note LastModified by Organization Details LastModified Time Prescript ion - Prior Authoriza tion Request 01/15 completed Not Available Not Available Not Available Compound Tetracain e Lollipops 0.5% USE FOR [...] weight Respiratory rate Heart rate Oxygen saturation Systolic And Diastolic Provider Name and Address Organization Details Last Updated DateTime 2 167.64 cm 42 kg/m2 083046. 12 g 18 /min 92 /min 99 % 104/74 mm[Hg] Amada Borja [facility] 2 12:02:26 Social History Question Answer Notes LastModified by Organizat ion Details LastModified Time Tobacco Smoking Status Never Smoker Gia [email or web address], [facility] 12/14/2017 08:51:07 How Much Tobacco Do You Chew? None Information not available 01/05/2019 What Was The Date Of Your Most Recent Tobacco Screening? 09/16/2021 Information not available 09/16/2021 How Many Children Do You Have? 0 [email or web address] Information not available 08/13/2021 What Is Your Relationship Status? Single [email or web address] Information not available 08/13/2021 How Much Tobacco Do You Smoke? No [email or web address] Information not available 01/05/2019 Has Tobacco Cessation Counseling Been Provided? Yes Information not available 09/16/2021 On What Date Was Tobacco Cessation Counseling Provided? 09/16/2021 Information not available 09/16/2021 How Many Years Have You Smoked Tobacco? 0 [email or web address] Information not available 01/05/2019 Have You Recently Traveled Abroad? No [email or web address] Information not available 08/13/2021 Sex: Female Functional Status Question Answer Note LastModified by Organizat ion Details LastModified Time Do you use any illicit or recreational drugs? No Information not available 09/16/2021 Do you or have you ever used any other forms of tobacco or nicotine? No Information not available 09/16/2021 What is your level of alcohol consumption? None [email or web address] Information not available 09/07/2018 Do you or [...] Details LastModified Time Unspecified Relation Allergic rhinitis Not available 2018 08:09:37 Mother Arthritis Not availabl e 01/05/2019 08:09:54 Mother Asthma [email or web address] Not available 1 09/12/2019 13:24:17 Mother Diabetes mellitus [email or web address] Not available 2019 13:24:35 Father Arthritis [email or web address] Not availabl e 01/05/2019 08:09:54 Father Heart disease [email or web address] Not available 2019 13:23:57 Father Hypertensive disorder [email or web address] Not available 2019 13:24:07 Sister Diabetes mellitus [email or web address] Not available 2019 13:24:35 Notes:father has had bypass surgery, mother has afib Medical History Condition Response Diabetes N Bleeding Disorder N Arthritis N Emphysema N Heart Disease N Acid Reflux (GERD) N Rheumatoid Arthritis N Hypertension N COPD N Asthma N Gynecological HistoryNo gynecological history recorded. Obstetrics History GPAL:G 0 P 0 0 0 0 Immunizations Vaccine Type Date Status Note Provider Nam e and Address Organization Details Recorded Time Influenza, split virus, quadrivalent, preservative 8 completed [place] 01/05/2019 08:09:18 Past Encounters Encounter ID Performer Location Encounter Start Date Encounter Closed Date Diagnosis/Indication Diagnosis SNOMED-CT Code Diagnosis ICD10 Code Diagnosis IMO Codes Diagnosis Note [id number] MD GIUSEPPE [place] [address] [place] [address] 02/17/2017 09:23:50 02/19/2017 09:36:16 Psoriasis 0320072 L40.9 Flaring on scalp and hands - Discussed treatment options - Will refill Ultravate cream and start clobetasol shampoo and soln. Consider Otezla. [id number] LEATHA HAWK MD DERMATLENY [place] [address] [place] [address] 12/14/2017 08:41:54 12/14/2017 12:41:37 Psoriasis 6796586 L40.9 Doing well - continue Clobetasol Shampoo and Ultravate as needed. Intertrigo 30906919 L30. 4 Upper inner thighs - Recommend trying Zeasorb AF powder [id number] CHAYO LEYVA PA-C CARDIOLOG [place] [address] [place] [address] 09/07/2018 08:53:10 09/07/2018 10:30:15 Chest pain 82827374 R07.9 Palpitations 54234686 R0 0.2 Electrocar diogram abnormal 204823550 R94.31 [id number] BELA MARQUES MD ECHO VASCULAR LAB [place] [address] [place] [address] 09/16/2018 12:43:34 09/17/2018 09:22:49 Atypical chest pain 429587882 R07.89 Electrocar diogram abnormal 184487416 R94.31 [id number] BELA MARQUES MD [facility] [address] [place] [address] 09/23/2018 08:22:45 09/23/2018 10:57:16 Palpitations 44931140 R00.2 [id number] BELA MARQUES MD CARDIOLOG Y [address] [place] [address] 10/11/2018 12:30:40 10/13/2018 09:47:47 Nvtnf-Igqwnwses-Ommxc pattern 02708840 I45.6 The patient has WPW with symptoms [...] as well as bleeding and thrombotic events. [id number] BELA MARQUES MD CARDIOLOG Y [address] [place] [address] 10/20/2018 12:55:39 10/21/2018 09:34:35 Kazha-Aflxwtxmd-Posdg pattern 57580294 I45.6 I have reassured the patient that her heart rate of 90-95 bpm is in a normal range and that her EKG shows evidence of a durable ablation result to date. [id number] STEVAN HUTCHINS MD RHEUMATOL OGY [address] [place] [address] 01/05/2019 07:47:31 01/06/2019 17:34:52 Body mass index 30+ - obesity 255835156 Z68.30 BMI 36. Low-carb diet, regular exercise encouraged . Anti-nucle ar factor detected 503532701 R76.8 a very pleasant 18-year-ol d female [...] further evaluation of the positive SHANTI screen. [id number] LEATHA HAWK MD DERMATOLO GY [facility] [address] [facility] ,[address] [place] [address] 07/15/2019 09:54:59 07/15/2019 13:42:15 Psoriasis 4196095 L40.9 Scalp and hands has used Clobetasol and Ultravate Discussed Otezla and biologics Will try to get Otezla approved - Will give a starter min today [id number] CHAYO LEYVA PA-C CARDIOLOG Y [address] [place] [address] 10/12/2019 14:37:57 10/12/2019 15:22:31 Palpitations 00458698 R00.2 Tasha inson-White pattern 99128699 I45.6 [id number] BELA MARQUES MD HEART STATION [address] [facility] ,[address] [place] [address] 10/13/2019 10:36:07 10/13/2019 10:36:34 Palpitations 95169305 R00.2 [id number] MD GIDEON REYNA ENT [facility] CLOSED [address] [facility] [place] [address] 07/12/2020 13:06:50 07/12/2020 13:51:01 Hypertrophy of tonsils 46896183 J35.1 Recurrent acute tonsillitis 748637610 J03.91 Chronic tonsillitis 9097 9004 J35.01 Psoriasis 3966619 L40.9 -TAKES OTEZLA Tasha inson-White pattern 85282116 I45.6 -S/P CARDIAC ABLATION [id number] LIYAH RIVERA MD SURGERY SCHEDULE [address] [place] [address] 07/30/2020 07:03:39 07/30/2020 07:04:[id number] R[address]A [address] ENT [facility] CLOSED [address] [place] [address] 08/23/2020 11:02:10 08/23/2020 11:48:37 Hypertrophy of tonsils 92169568 J35.1 -s/p TONSILLECT FILIBERTO AND ADENOIDECT FILIBERTO 07/30/20 Recurrent acute tonsillitis 144793300 J03.91 Chronic tonsillitis 9097 9004 J35.01 Psoriasis 6930481 L40.9 -TAKES MIKE ChrisSiennaKaty inson-White pattern 35924186 I45.6 -S/P CARDIAC ABLATION Examination of ear 86074 0007 Z01.118 Acute ivone al otitis externa 671341955 B36.9 [id number] CHAYO LEYVA PA-C CARDIOLOG Y [address] ,[address] [place] [address] 08/13/2021 11:05:20 08/13/2021 12:11:30 Body mass index 40+ - severely obese 863063548 Z68.42 Non-starch y vegetables , lean proteins, avoid fried foods and high fatty foods. Avoid concentrat ed sweets and sugary beverages. Increase activity, 15-20 minute walk 4-5 times a week. Elevated blood-pressure reading without diagnosis of hypertension 067329189 R03.0 Continue to monitor blood pressures. Encouraged weight loss exercise and low-sodium diet. Chest pain 91107542 R07. 9 Likely related to palpitatio ns in conjunctio n with elevated blood pressures. We will add metoprolol 50 mg daily. Follow-up with Dr. Marques in 6 weeks with treadmill stress test. Patient was advised to call should she develop any problems in the interim Palpitations 72199875 R0 0.2 [id number] BELA MARQUES MD CARDIOLOG Y [address] [place] [address] 09/16/2021 10:16:09 09/16/2021 12:23:48 Obese [id number] E66.9 Hyperdynam ic circulation 899182750 R09.89 Mrs. Trevino presented with complaints of [...] effects from medication or any other concerns. [id number] BELA MARQUES MD HEART STATION [address] [place] [address] 09/16/2021 10:14:05 09/16/2021 11:11:37 [id number] LEATHA HAWK MD DERMATLENY [place] [address] [place] [phone] 11/01/2021 09:06:57 11/01/2021 10:30:39 Psoriasis 1842180 L40.9 Scalp and handswith PSA - joint involvemen thas used Clobetasol and Ultravate Discussed Otezla and biologicsh as been using Otezla but not effectiveW ill start PA for Tremfyalab s ordered today, had tb skin test yesterdayc ontinue ultravate Psoriatic arthritis 1563 11510 L40.50 [id number] LEATHA HAWK MD DERMATLENY [facility] [address] [place] [phone] 04/28/2022 13:11:04 04/28/2022 13:58:58 Psoriasis 3851716 L40.9 Scalp and hands--bet ter, not clearArthr itis betterStar kennedy Humira in November--lab today Failed Otezla Clobetasol and ultravateW ill continue Humira for now and use augmented betamethas one lotion as needed Patient is trying to get , discussed uncertain risks but probably safeConsid er Cimzia Psoriatic arthritis 1563 [address] L40.50 Joint pain better since starting Humira [id number] LEATHA HAWK MD DERMATLENY [facility]Y [facility] [address] [place] [address] 04/12/2024 15:32:34 04/12/2024 16:14:28 Psoriasis 5961547 L40.9 Scalp has flare upArthriti s - Not doing wellStarte d Humira in November 2021 Failed OtezlaStop ped Humira in Sep 2022 6 months before getting .S topped augmented betamethas one lotion. Pt had a baby in December, not trying to conceive January 20, 2024 Negative PPD Will begin Skyrizi todayLabs done today Psoriatic arthritis 1563 [address]7915 L40.50 Joint pain Is extreme [id number] LEATHA HAWK MD DERMATLENY [facility] [address] [place] [phone] 07/18/2024 09:53:15 07/18/2024 12:18:18 Psoriasis 9882253 L40.9 Scalp has flare up with much [...] er Cimzia if needed Psoriatic arthritis 1563 99018 L40.50 Joint pain Is extreme Health Concerns Section Related Observation LastModified by Organization Detai ls LastModified Time None Recorded Concern Status LastModified by Organization Details LastModified Time None Recorded Advance Directives Directive None Recorded Payers Insurance Date Sequence Insurance Name Policy Number Policy Alvarez Covered Member ID Alvarez Member ID Guarantor Name 03/11/2019 PAYMENT PLAN Lisa Trevino 07/15/2024 1 [facility] BENEFITS PLAN - OPEN ACCESS PLUS 32 Altagracia Trevino [id number] Lisa Moellerlin 12/13/2020 PAYMENT PLAN Lisa Moellerlin 11/16/2020 1 [facility] B[employer]EFIT PLAN Altagracia Trevino [id number] Lisa Trevino 01/22/2023 PAYMENT PLAN Lisa Trevino Notes Date [...] anterolateral AP in 2018. BELA MARQUES MD [address] [place] [address], [address], [facility] [place] 09/16/2021 12:19:06 11/01/2021 text/html ROS as noted [...] family history of melanoma. LEATHA HAWK MD [address] [place] [address], [phone], [facility] [place] 11/01/2021 13:16:22 04/28/2022 text/html ROS as noted in the [facility] Established Patient here for SAUMYA of psoriasis [...] and has no family history of melanoma. MD [place]ile [place], [phone], [facility] [place] 04/28/2022 14:07:20 04/12/2024 text/html ROS as noted in the [facility] Established Patient here for SAUMYA of psoriasis [...] family history of melanoma. LEATHA HAWK MD [facility] [place], [phone], [facility] 04/12/2024 16:39:55 07/18/2024 text/html ROS as noted in the [facility] Established Patient here for SAUMYA of psoriasis [...] and has no family history of melanoma. [place], [phone], [facility] [place] 07/18/2024 12:33:28 OBGyn Episode No OBEpisode recorded.
--- NOTE | 2025-07-20 22:08 | CT_ITS ---
PROCEDURE INFORMATION: Exam: CT Abdomen And Pelvis With Contrast Exam date and time: 07/20/2025 10:50 PM Age: 24 years old Clinical indication: Abdominal pain; Additional info: Abdominal pain, rlq TECHNIQUE: Imaging protocol: Computed tomography of the abdomen and pelvis with contrast. Radiation optimization: All CT scans at this facility use at least one of these dose optimization techniques: automated exposure control; mA and/or kV adjustment per patient size (includes targeted exams where dose is matched to clinical indication); or iterative reconstruction. Contrast material: ISOVUE; Contrast volume: 75 ml; Contrast route: IV; COMPARISON: CT ABDOMEN PELVIS W CON 04/16/2022 9:27 PM FINDINGS: Liver: Normal. No mass. Gallbladder and biliary ducts: Cholecystectomy. Pancreas: Normal. No ductal dilation. Spleen: Normal. No splenomegaly. Adrenal glands: Normal. No mass. Kidneys and ureters: Normal. No hydronephrosis. Excreted contrast within the bilateral renal collecting systems. Stomach and bowel: Unremarkable. No obstruction. No mucosal thickening. Appendix: The appendix is within normal limits in size and contains an appendicolith distally. Intraperitoneal space: Unremarkable. No free air. No significant fluid collection. Vasculature: Unremarkable. No abdominal aortic aneurysm. Lymph nodes: Mildly enlarged mesenteric lymph nodes. Urinary bladder: Unremarkable as visualized. Reproductive: Unremarkable as visualized. Bones/joints: Unremarkable. No acute fracture. Soft tissues: Unremarkable. IMPRESSION: No acute findings. Mildly enlarged mesenteric lymph nodes. Presumed reactive.
[2025-07-20 22:09] VITALS: BP 118/76; PULSE 108; RESP 18; TEMP 37.1; O2SAT 98
--- NOTE | 2025-07-20 22:10 | HMH.EDGENADL ---
Discharge Plan Disposition Patient Disposition: Home, Self-Care Condition: Good Prescriptions Prescriptions: No Action Debrox 6.5 % drops 5 drp otic (ear) DAILY 4 Days Qty: 15 0RF Rx Instructions: in left ear as directed Referrals Follow up/Referrals: Shruthi Calderón APRN [Primary Care Provider, Medical] - See instructions Activity Restrictions/Add. Instructions Additional Instructions/Restrictions: You were evaluated in the ER and are believed to be appropriate for discharge at this time. Take Tylenol or ibuprofen at home if needed for pain, do not exceed the recommended dose on the bottle. Drink water and eat a small snack each time you take these medications to avoid side effects. Make an appointment with your primary care doctor for reevaluation in 2 to 3 days. Return to the ER with any new, worsening, or otherwise concerning symptoms. Clinical Impressions Clinical Impression: Abdominal pain, RLQ Instructions Patient Instructions: DI for Acute Abdominal Pain Print Language Print Language: Frisian Discharge ED Provider: Iker Lucas General Adult HPI <Iker Lucas DO - Last Filed: 07/20/25 23:53> General Chief complaint: Abdominal Pain Stated complaint: Right Lower Abd pain, nausea, vomiting Time Seen by Provider: 07/20/25 22:03 Mode of Arrival: Ambulatory Source of Information: Patient Description of Symptoms (Recalled from ER Triage Doc. by RN): Patient states for the past few days she is having stabbing sharp RUQ pain, that sometime radiates to the right hip. States pain is a 4/10. Denies N&V, fever, or diarreha. History of Present Illness HPI narrative: This is a 24-year-old female patient, with past medical history of Nnybz-Veylsffgm-Mkafs syndrome status post ablation, who is presenting to the emergency department today for evaluation of right lower quadrant abdominal pain. Patient tells me that around 3 days ago she developed nausea and vomiting with subsequent onset of right lower quadrant abdominal pain. She has had no constipation, no diarrhea, no hematochezia or melena. No hematemesis. She denies urinary symptoms such as dysuria, hematuria, and urinary frequency. She is not having any vaginal discharge or vaginal bleeding. She tells me that the bumps in the road on the car ride on the way to the hospital did make her pain worse. Related Data Previous Rx's ?Medication ?Instructions ?Recorded carbamide peroxide 6.5 % ear drops 5 drp otic (ear) DAILY 4 days #15 05/16/25 (Debrox) mL Allergies Allergy/AdvReac Type Severity Reaction Status Date / Time fentanyl AdvReac Severe Acute Verified 03/22/25 14:06 Psychosis/Aggression [facility] <Iker Lucas DO - Last Filed: 07/20/25 23:53> [facility] Disclaimer: The information contained in this section may have been updated after the patient was seen, as this information can be updated by other users. Medical History (Updated 07/21/25 @ 01:06 by Cora De Anda MD) Impacted ear wax Calculus of gallbladder with acute and chronic cholecystitis without obstruction Sinusitis Vaginal bleeding during Pelvic pain affecting Bacteriuria during Urinary tract infection during Asymptomatic bacteriuria during Closed head injury Palpitations in pediatric patient Umbilical hernia Genital HSV History of arthritis Anemia Psoriasis History of hypertension Type A WPW syndrome Atypical chest pain Surgical History History of laparoscopic cholecystectomy [place] teeth extracted History of atrioventricular dangelo ablation History of tonsillectomy and adenoidectomy Family History Other Diabetes Heart attack Hypertension Social History Smoking Status: Current every day smoker tobacco type: e-cigarettes alcohol intake: never substance use type: denies use current occupational status: employed Travel in the last 8 weeks?: None Have you lived/traveled outside US in past 30 days?: No Contact w/someone who lives/traveled outside US past 30 days?: No Exposure to someone with infectious disease in past 14 days?: No Do you have a fever (greater than 100.4 F or 38 C)?: No Have you tested positive for COVID-19?: No Exposed to someone with COVID-19 in past 14 days?: No Do you have a sore throat?: No Do you have a cough?: No Do you have any weakness?: No Do you have any diarrhea?: No Are you experiencing any unusual bleeding?: No Do you have any muscle aches/pain?: No Do you have any abdominal pain?: No Are you experiencing loss of taste or smell?: No Other Medical History Have you received the Flu Vaccine for this season: No Have you received the Pneumonia Vaccine: No <Iker Lucas DO - Last Filed: 07/20/25 23:53> ROS Obtained: Yes Systems reviewed as appropriate & no additional complaints except as documented Physical Exam <Iker Lucas DO - Last Filed: 07/20/25 23:53> General General appearance: other (See MDM) Respiratory Respiratory exam: Present other (See MDM) Cardiovascular Cardiovascular exam: Present other (See MDM) Neurological Exam Neurological exam: Present other (See MDM) Medical Decision Making <Iker Lucas DO - Last Filed: 07/20/25 23:53> Medical Records Medical records reviewed: Yes I reviewed the patient's medical records. Screening: Per USPSTF and CDC recommendations, given the prevalence of disease in our region, it is our hospital?s policy to screen for HIV and viral Hepatitis for all patients aged 18 and over and those with ongoing risk factors. Dylon Inquiry Pt receiving controlled substance: No Dylon was queried for this patient: No Vital Signs: 07/20/25 22:05 07/20/25 22:09 Temperature 98.8 F 98.7 F Temperature Source Oral Pulse Rate 108 H Pulse Rate [Right] 108 H Respiratory Rate 18 18 Blood Pressure 118/76 Blood Pressure [Right Arm] 136/78 Blood Pressure Mean [Right Arm] 97 02 Sat by Pulse Oximetry 98 98 Oxygen Delivery Method Room Air Room Air Lab Data Lab Results 07/20/25 21:58: Urine Color Yellow, Urine Appearance Sl cloudy, Urine pH 6.0, Ur Specific [place] 1.015, Urine Protein 1+ A, Urine Glucose (UA) Negative, Urine Ketones Negative, Urine Blood Trace-i, Urine Nitrate Negative, Urine Bilirubin Negative, Urine Urobilinogen 0.2, Ur Leukocyte Esterase 1+ A, Urine RBC 5-10, Urine WBC 50-100, Ur Squamous Epith Cells 20-50, Urine Bacteria 4+, Urine Mucus Trace 07/20/25 22:17: WBC 10.7, RBC 4.27, Hgb 11.5 L, Hct 35.8 L, MCV 83.8, MCH 26.9 L, MCHC 32.1, RDW 13.9, Plt Count 264, MPV 11.5 H, Neut % (Auto) 61.4, Lymph % (Auto) 30.4, [place] % (Auto) 4.7, Eos % (Auto) 2.3, Baso % (Auto) 0.4, Neut # (Auto) 6.6, Lymph # (Auto) 3.2, [place] # (Auto) 0.5, Eos # (Auto) 0.2, Baso # (Auto) 0.0, Sodium 143, Potassium 3.6, Chloride 104, Carbon Dioxide 27, Anion Gap 15.6 H, BUN 15, Creatinine 1.20 H, Estimated Creat Clear 62, Estimated GFR 55 L, Est GFR ( Amer) 67, Glucose 86, Calcium 8.5, Total Bilirubin 0.5, AST 21, ALT 27, Alkaline Phosphatase 60, Total Protein 7.2, Albumin 4.4, Globulin 2.8, Albumin/Globulin Ratio 1.6, Lipase 53, Serum HCG, Qual Negative, HCV Ab JANINE w/Rflx PCR Qn Negative, HIV Ag/Ab Combo Qual Negative 07/20/25 23:05: Urine Color Yellow, Urine Appearance Clear, Urine pH 6.5, Ur Specific [place] 1.015, Urine Protein 1+ A, Urine Glucose (UA) Negative, Urine Ketones Negative, Urine Blood Negative, Urine Nitrate Negative, Urine Bilirubin Negative, Urine Urobilinogen 0.2, Ur Leukocyte Esterase Negative, Urine RBC Occasional, Urine WBC Occasional, Ur Squamous Epith Cells Occasional 07/20/25 22:17 07/20/25 22:17 Orders (Tests/Meds): ED MEDICATIONS Generic Name Dose Route Start Last Admin Trade Name Freq PRN Reason Stop Dose Admin Sodium Chloride 10 ml 07/20/25 22:57 07/20/25 22:58 Sodium Chloride 0.9% 10ml Syr (Rad Only) IV 08/19/25 22:56 10 ml NEEDED PRN Administration Maintain IV Site Discontinued Medications Generic Name Dose Route Start Last Admin Trade Name Freq PRN Reason Stop Dose Admin Lactated Ringer's 1,000 mls @ 999 mls/hr 07/20/25 22:10 07/20/25 23:44 Lactated Ringer's 1000 Ml Bag IV 07/20/25 23:10 Infused .Q1H1M ONE Infusion Iopamidol 75 ml 07/20/25 22:57 07/20/25 22:58 Iopamidol-370 (76%);100ml Bottle IV 07/20/25 22:58 75 ml ONCE ONE Administration Ketorolac Tromethamine 30 mg 07/21/25 00:50 07/21/25 00:53 Ketorolac 30mg/Ml Vial IV 07/21/25 00:51 Not Given ONCE ONE ORDERS Category Date Time Status CT abdomen pelvis w con Stat Cat Scan 07/20/25 22:08 Completed US transvaginal Routine Exams 07/21/25 Completed CBC w/Auto Diff [Complete Blood Count Auto Diff] Stat Lab 07/20/25 22:17 Completed CMP [Comprehensive Metabolic Panel] Stat Lab 07/20/25 22:17 Completed HCG Qualitative, Serum Stat Lab 07/20/25 22:17 Completed HIV Combo Stat Lab 07/20/25 22:17 Completed Hepatitis C Ab Qual. W/ RFX Stat Lab 07/20/25 22:17 Completed Lipase Stat Lab 07/20/25 22:17 Completed Urinalysis and Microscopic Stat Lab 07/20/25 21:58 Completed Urinalysis and Microscopic Stat Lab 07/20/25 23:05 Completed Urine Culture Stat Micro 07/20/25 21:58 Received Medical Decision Narrative: In summary, this is a 24-year-old female patient who is presented to the emergency department today for evaluation of right lower quadrant abdominal pain onset 3 days ago that is constant in nature with intermittent periods of worsening and is associated with nausea and vomiting. The patient's comorbidities include a past medical history of Hglwl-Hhthvvsot-Hsywb syndrome status post ablation. On initial evaluation of the patient they were resting comfortably in no acute distress and nontoxic in appearance. They are hemodynamically stable, saturating well room air, and are neurologically intact. On physical examination the patient is tachycardic. She is normotensive. She has right lower quadrant abdominal tenderness palpation with no evidence of involuntary guarding or rebound tenderness. She has no tenderness in the left lower quadrant, or the remainder of her abdomen. No lower extremity erythema or edema. Differential diagnosis includes appendicitis, right-sided diverticulitis, colitis, enteritis, urinary tract infection, pyelonephritis, among others. Given that the patient is not having any vaginal symptoms and does not have an extensive history of ovarian cysts feel that ovarian torsion is less likely at this time. If CT scans and other workup is negative, we will reassess and reconsider workup for torsion. Workup was initiated with hematologic labs as well as a urinalysis and CT scan of the abdomen and pelvis with IV contrast. Labs were personally turbid by me and demonstrate no evidence of leukocytosis. No Transfusable anemia. No significant electrolyte derangements or evidence of acute kidney injury. hCG is negative. Initial urinalysis was contaminated with numerous squamous cells. Therefore we had the patient repeat a urine sample and repeat urine sample shows occasional white blood cells, no leukocyte esterase, and no nitrates. Therefore I do not feel she is experiencing a urinary tract infection at this time. CT scan of the abdomen pelvis was personally turbid by me and demonstrates no large pneumoperitoneum. Official radiology read is in agreement and notes that she does have some mesenteric nodes. Based on this reading I was curious as to whether the patient was experiencing mesenteric adenitis causing focal pain in the right lower quadrant. I discussed this directly with the radiologist and he stated that these mesenteric nodes are very small and located at the base of the mesentery in the left upper quadrant and he specifically states that he does not feel that these would explain the patient's pain. I did reassess the patient and she still has exquisite pain in the right lower quadrant and tenderness to palpation on exam. Due to this, we discussed the potential for ovarian torsion given that we have ruled out gastrointestinal emergencies. At the time of shift change transvaginal ultrasound was pending for workup of torsion. This case was handed off to the oncoming provider who will follow-up on transvaginal ultrasound and disposition the patient appropriately <Cora De Anda MD - Last Filed: 07/21/25 01:09> Vital Signs: 07/20/25 22:05 07/20/25 22:09 Temperature 98.8 F 98.7 F Temperature Source Oral Pulse Rate 108 H Pulse Rate [Right] 108 H Respiratory Rate 18 18 Blood Pressure 118/76 Blood Pressure [Right Arm] 136/78 Blood Pressure Mean [Right Arm] 97 02 Sat by Pulse Oximetry 98 98 Oxygen Delivery Method Room Air Room Air Lab Data Lab Results 07/20/25 21:58: Urine Color Yellow, Urine Appearance Sl cloudy, Urine pH 6.0, Ur Specific [place] 1.015, Urine Protein 1+ A, Urine Glucose (UA) Negative, Urine Ketones Negative, Urine Blood Trace-i, Urine Nitrate Negative, Urine Bilirubin Negative, Urine Urobilinogen 0.2, Ur Leukocyte Esterase 1+ A, Urine RBC 5-10, Urine WBC 50-100, Ur Squamous Epith Cells 20-50, Urine Bacteria 4+, Urine Mucus Trace 07/20/25 22:17: WBC 10.7, RBC 4.27, Hgb 11.5 L, Hct 35.8 L, MCV 83.8, MCH 26.9 L, MCHC 32.1, RDW 13.9, Plt Count 264, MPV 11.5 H, Neut % (Auto) 61.4, Lymph % (Auto) 30.4, [place] % (Auto) 4.7, Eos % (Auto) 2.3, Baso % (Auto) 0.4, Neut # (Auto) 6.6, Lymph # (Auto) 3.2, [place] # (Auto) 0.5, Eos # (Auto) 0.2, Baso # (Auto) 0.0, Sodium 143, Potassium 3.6, Chloride 104, Carbon Dioxide 27, Anion Gap 15.6 H, BUN 15, Creatinine 1.20 H, Estimated Creat Clear 62, Estimated GFR 55 L, Est GFR ( Amer) 67, Glucose 86, Calcium 8.5, Total Bilirubin 0.5, AST 21, ALT 27, Alkaline Phosphatase 60, Total Protein 7.2, Albumin 4.4, Globulin 2.8, Albumin/Globulin Ratio 1.6, Lipase 53, Serum HCG, Qual Negative, HCV Ab JANINE w/Rflx PCR Qn Negative, HIV Ag/Ab Combo Qual Negative 07/20/25 23:05: Urine Color Yellow, Urine Appearance Clear, Urine pH 6.5, Ur Specific [place] 1.015, Urine Protein 1+ A, Urine Glucose (UA) Negative, Urine Ketones Negative, Urine Blood Negative, Urine Nitrate Negative, Urine Bilirubin Negative, Urine Urobilinogen 0.2, Ur Leukocyte Esterase Negative, Urine RBC Occasional, Urine WBC Occasional, Ur Squamous Epith Cells Occasional Orders (Tests/Meds): ED MEDICATIONS Generic Name Dose Route Start Last Admin Trade Name Freq PRN Reason Stop Dose Admin Sodium Chloride 10 ml 07/20/25 22:57 07/20/25 22:58 Sodium Chloride 0.9% 10ml Syr (Rad Only) IV 08/19/25 22:56 10 ml NEEDED PRN Administration Maintain IV Site Discontinued Medications Generic Name Dose Route Start Last Admin Trade Name Freq PRN Reason Stop Dose Admin Lactated Ringer's 1,000 mls @ 999 mls/hr 07/20/25 22:10 07/20/25 23:44 Lactated Ringer's 1000 Ml Bag IV 07/20/25 23:10 Infused .Q1H1M ONE Infusion Iopamidol 75 ml 07/20/25 22:57 07/20/25 22:58 Iopamidol-370 (76%);100ml Bottle IV 07/20/25 22:58 75 ml ONCE ONE Administration Ketorolac Tromethamine 30 mg 07/21/25 00:50 07/21/25 00:53 Ketorolac 30mg/Ml Vial IV 07/21/25 00:51 Not Given ONCE ONE ORDERS Category Date Time Status CT abdomen pelvis w con Stat Cat Scan 07/20/25 22:08 Completed US transvaginal Routine Exams 07/21/25 Completed CBC w/Auto Diff [Complete Blood Count Auto Diff] Stat Lab 07/20/25 22:17 Completed CMP [Comprehensive Metabolic Panel] Stat Lab 07/20/25 22:17 Completed HCG Qualitative, Serum Stat Lab 07/20/25 22:17 Completed HIV Combo Stat Lab 07/20/25 22:17 Completed Hepatitis C Ab Qual. W/ RFX Stat Lab 07/20/25 22:17 Completed Lipase Stat Lab 07/20/25 22:17 Completed Urinalysis and Microscopic Stat Lab 07/20/25 21:58 Completed Urinalysis and Microscopic Stat Lab 07/20/25 23:05 Completed Urine Culture Stat Micro 07/20/25 21:58 Received Medical Decision Narrative: In summary, this is a 24-year-old female patient who is presented to the emergency department today for evaluation of right lower quadrant abdominal pain onset 3 days ago that is constant in nature with intermittent periods of worsening and is associated with nausea and vomiting. The patient's comorbidities include a past medical history of Tgczt-Oxvsmcajr-Mlutx syndrome status post ablation. On initial evaluation of the patient they were resting comfortably in no acute distress and nontoxic in appearance. They are hemodynamically stable, saturating well room air, and are neurologically intact. On physical examination the patient is tachycardic. She is normotensive. She has right lower quadrant abdominal tenderness palpation with no evidence of involuntary guarding or rebound tenderness. She has no tenderness in the left lower quadrant, or the remainder of her abdomen. No lower extremity erythema or edema. Differential diagnosis includes appendicitis, right-sided diverticulitis, colitis, enteritis, urinary tract infection, pyelonephritis, among others. Given that the patient is not having any vaginal symptoms and does not have an extensive history of ovarian cysts feel that ovarian torsion is less likely at this time. If CT scans and other workup is negative, we will reassess and reconsider workup for torsion. Workup was initiated with hematologic labs as well as a urinalysis and CT scan of the abdomen and pelvis with IV contrast. Labs were personally turbid by me and demonstrate no evidence of leukocytosis. No Transfusable anemia. No significant electrolyte derangements or evidence of acute kidney injury. hCG is negative. Initial urinalysis was contaminated with numerous squamous cells. Therefore we had the patient repeat a urine sample and repeat urine sample shows occasional white blood cells, no leukocyte esterase, and no nitrates. Therefore I do not feel she is experiencing a urinary tract infection at this time. CT scan of the abdomen pelvis was personally turbid by me and demonstrates no large pneumoperitoneum. Official radiology read is in agreement and notes that she does have some mesenteric nodes. Based on this reading I was curious as to whether the patient was experiencing mesenteric adenitis causing focal pain in the right lower quadrant. I discussed this directly with the radiologist and he stated that these mesenteric nodes are very small and located at the base of the mesentery in the left upper quadrant and he specifically states that he does not feel that these would explain the patient's pain. I did reassess the patient and she still has exquisite pain in the right lower quadrant and tenderness to palpation on exam. Due to this, we discussed the potential for ovarian torsion given that we have ruled out gastrointestinal emergencies. At the time of shift change transvaginal ultrasound was pending for workup of torsion. This case was handed off to the oncoming provider who will follow-up on transvaginal ultrasound and disposition the patient appropriately De Anda: Upon my assumption of care patient is stable. I agree with the assessment and plan from Dr. Lucas. I have reviewed labs and agree that they are nonactionable especially since patient repeat urinalysis shows there is not significant squamous cell contamination, negative leukocyte esterase, only occasional WBCs and nitrate negative. Creatinine 1.[address] abdomen pelvis does not demonstrate acute intra-abdominal pathology, patient went for transvaginal ultrasound which I personally interpreted and do not appreciate evidence of cyst, there appears to be good flow to both ovaries. See radiology read for final interpretation which is in agreement. I had offered the patient Toradol which she declined. She states she does not want any pain medication. This is reassuring that her symptoms are well enough controlled that she does not plan pain medication in the ER. I discussed results with her. I believe she is appropriate for discharge and she is comfortable with this plan. Patient was given instructions on symptomatic management, follow up instructions, and return precautions for the emergency department. Patient indicated understanding and was discharged in stable condition. Critical Care <Iker Lucas, DO - Last Filed: 07/20/25 23:53> Critical Care Time Critical Care Time: No
[2025-07-20 22:15] LABS: Microscopic, Urine URINE MICROSCOPIC (MICROSCOPIC)
[2025-07-20] MEDS: LACTATED RINGERS 1000ML 1,000 ML 999 ML IV (22:17)
[2025-07-20 22:19] LABS: Bilirubin,Urine Negative (Negative); Color,Urine YELLOW (Yellow); Glucose,Urine (UA) Negative (Negative); Ketones,Urine Negative (Negative); Leukocyte Esterase,Urine 1+ (Negative); PH,Urine 6.0 (5.0-8.5); Protein,Urine 1+ (Negative); Specific Gravity, Urine 1.015 (1.005-1.030); Urobilinogen,Urine 0.2 EU/dl (0.2)
[2025-07-20 22:26] LABS: Hematocrit 35.8 % (37.0-47.0); Hemoglobin 11.5 g/dL (12.2-16.2); Immature Granulocytes % 0.8 %; Mean Corpuscular HGB Conc 32.1 g/dL (31.8-35.4); Mean Corpuscular Hemoglobin 26.9 pg (27.0-31.2); Mean Corpuscular Volume 83.8 fl (81-99); Nucleated Red Blood Cells % 0 %; Platelet Count 264 K/mm3 (142-424); Red Blood Count 4.27 M/mm3 (4.20-5.40); Red Cell Distribution Width-SD 41.9 fL; White Blood Count 10.7 K/mm3 (4.8-10.8)
[2025-07-20 22:31] LABS: Albumin Level 4.4 g/dl (3.5-5.0); Chloride 104 mmol/L (98-107); Sodium 143 mmol/L (136-145)
[2025-07-20 22:32] LABS: Potassium 3.6 mmoL/L (3.5-5.1)
[2025-07-20 22:34] LABS: Alanine Aminotransferase 27 U/L (12-78); Albumin/Globulin Ratio 1.6 (1.1-1.8); Alkaline Phosphatase 60 U/L (38-126); Anion Gap 15.6 mEq/L (5-15); Aspartate Amino Transferase 21 U/L (14-36); Bilirubin,Total 0.5 mg/dl (0.2-1.3); Blood Urea Nitrogen 15 mg/dl (7-17); Carbon Dioxide 27 mmol/L (22.0-30.0); Creatinine Clearance Estimated 62 mL/min (50-200); Creatinine,Serum 1.20 mg/dl (0.52-1.04); Estimated Glomerular Filt Rate 55 ml/min (>60); GFR (African American) 67 ML/MIN (>60); Globulin 2.8 g/dL (1.3-3.2); Lipase 53 U/L (23-300); Total Protein,Serum 7.2 g/dl (6.3-8.2)
[2025-07-20 22:35] LABS: Calcium 8.5 mg/dl (8.4-10.2); Glucose 86 mg/dl (74-100)
[2025-07-20 22:42] LABS: Squamous Epithelial Cell,Urine 20-50 #/hpf (0-5); WBC,Urine 50-100 #/hpf (0-3)
[2025-07-20 22:43] LABS: Bacteria,Urine 4+ /lpf; Mucus,Urine Trace /lpf
[2025-07-20 22:43] LABS: HCG Qualitative, Serum Negative (Negative)
[2025-07-20] MEDS: SODIUM CHLORIDE 0.9% 10ML SYR (RAD ONLY) 10 ML IV (22:58)
[2025-07-20] MEDS: IOPAMIDOL-370 (76%);100ML BOTTLE 75 ML IV (22:58)
[2025-07-20 23:13] LABS: Bilirubin,Urine Negative (Negative); Color,Urine YELLOW (Yellow); Glucose,Urine (UA) Negative (Negative); Ketones,Urine Negative (Negative); Leukocyte Esterase,Urine Negative (Negative); Microscopic, Urine URINE MICROSCOPIC (MICROSCOPIC); PH,Urine 6.5 (5.0-8.5); Protein,Urine 1+ (Negative); Specific Gravity, Urine 1.015 (1.005-1.030); Urobilinogen,Urine 0.2 EU/dl (0.2)
[2025-07-20 23:25] LABS: RBC,Urine Occasional #/hpf (0-3); Squamous Epithelial Cell,Urine Occasional #/hpf (0-5); WBC,Urine Occasional #/hpf (0-3)
[2025-07-20 23:29] LABS: Hepatitis C Ab Qual. W/ RFX NEGATIVE (Negative)
--- NOTE | 2025-07-21 | US_ITS ---
PROCEDURE INFORMATION: Exam: US Pelvis, Transvaginal, Non-Obstetric Exam date and time: 07/21/2025 12:19 AM Age: 24 years old Clinical indication: Pain; Other: Rlq; Additional info: Rlq pain x 3 days / nausea-vomiting TECHNIQUE: Imaging protocol: Real-time transvaginal pelvic (non-obstetric) ultrasound with image documentation. Transvaginal imaging was used for better evaluation of the endometrium, adnexa, and/or cervix. COMPARISON: US OB TRANSVAGINAL 07/16/2023 10:04 AM FINDINGS: Uterus: Uterus is anteverted, measuring 8.9 x 4.8 x 5.6 cm. Endometrial stripe is 1.5 cm. Right ovary/adnexa: 2.2 x 2.7 x 1.7 cm. No mass. Normal ovarian blood flow on color Doppler. Left ovary/adnexa: 3.1 x 2.4 x 2.4 cm. No mass. Normal ovarian blood flow on color Doppler. Urinary bladder: Urinary bladder is limited. Intraperitoneal space: Small volume of free fluid in the cul-de-sac. IMPRESSION: No acute findings.
[2025-07-21 01:13] VITALS: BP 134/84; PULSE 74; RESP 18; TEMP 36.6; O2SAT 98
== END 2025-07-21 01:22 | disposition home or self-care (01) ==
PROVIDERS: Emergency Provider Student in an Organized Health Care Education/Training Program; PCP Nurse Practitioner Family
DX: R10.31 Right lower quadrant pain (principal); R00.0 Tachycardia, unspecified; R11.2 Nausea with vomiting, unspecified; F17.290 Nicotine dependence, other tobacco product, uncomplicated
CPT/HCPCS: 74177; 76830; 80053; 81001; 83690; 84703; 85025; 86803; 87086; 87389; 96360; 99285; J7120; Q9967